=== PATIENT | male | born 1945 | race Caucasian/White ===

== ENCOUNTER 2021-12-28 09:11 | Emergency (ER) | payer MEDICARE, BC, SELFPAY ==
[2021-12-28 09:16] VITALS: BP 212/85; PULSE 93; RESP 20; TEMP 36.5; O2SAT 96; BMI 46.6
--- NOTE | 2021-12-28 09:40 | CRLHL7_ITS ---
For Patients: As a result of the Century Cures Act, medical imaging exams and procedure reports are released immediately into your electronic medical record. You may view this report before your referring provider. If you have questions, please contact your health care provider. INDICATION: Neck pain. TECHNIQUE: CT cervical spine without contrast. COMPARISON: None. FINDINGS: Vertebrae: Alignment is normal. There are no fractures or suspicious bony lesions. Discs and facet joints: Moderate to severe degenerative disc spondylosis involving all levels of the cervical spine with the exception of C4-5. Moderate diffuse facet joint spondylosis. Extraspinal findings: Prevertebral soft tissues, visualized airway, and visualized lungs are unremarkable. IMPRESSION: No acute abnormality evident. There is moderate to severe diffuse degenerative disc and facet joint spondylosis. Please note that all CT scans at this facility use dose modulation, iterative reconstruction, and/or weight-based dosing when appropriate to reduce radiation dose to as low as reasonably achievable. Dictated by Mu Bryant MD @ 12/28/2021 10:39:07 AM (Electronically Signed)
--- OUTSIDE RECORDS SUMMARY | 2021-12-28 09:55 | XMS_ITS | Encounter Summary ---
:1945 Author Organization [facility] Address [address] [place] [address] Care Team Providers Name Role Phone Yolanda Colón APRN, C.N.P. Primary Care Provider [phone] Reason for Visit Reason Comments Abdominal Pain Encounter Details Date Type Department Care Team Description 11/04/2021 Nurse Triage Department of Family Paider, Ab [facility] dominal Pain Medicine in [facility] [address] [facility] [address] [place] [phone] Social History Tobacco Use Types Packs/Day Years Used Date Smoking Tobacco: Former Smokeless Tobacco: Former Alcohol Use Standard Drinks/Week Comments Yes 0 (1 standard drink = 0.6 oz pure alcoho l) Social Alcohol Habits Answer Date Recorded How often do you have a drink containing alcohol? Monthly or less 12/04/2019 How many drinks containing alcohol do you have on a 1 or 2 12/04/2019 typical day when you are drinking? How often do you have six or more drinks on one Less than mo nthly 12/04/2019 occasion? Comment: Social 04/20/2021 Social Isolation Answer Date Recorded In a typical week, how many times do you More than three huy es a week 12/04/2019 talk on the phone with family, friends, or neighbors? How often do you get together with friends Once a week 12/04/2019 or relatives? How often do you attend zoroastrianism or 1 to 4 times per year 11/2019 oriental orthodox services? Do you belong to any clubs or No 12/04/2019 organizations such as zoroastrianism groups, unions, fraternal or athletic groups, or school groups? How often do you attend meetings of the Never 12/04/2019 clubs or organizations you belong to? Are you now , , , 12/04/2019 , never or living with a partner? Physical Activity Answer Date Recorded On average, how many days per week do you engage in moderate to 5 days 12/04/2019 strenuous exercise (like walking fast, running, jogging, dancing, swimming, biking, or other activities that cause a light or heavy sweat)? On average, how many minutes do you engage in exercise at th is 30 min 12/04/2019 level? Stress Answer Date Recorded Do you feel stress - tense, restless, nervous, or anxious, N ot at all 12/04/2019 or unable to sleep at night because your mind is troubled all the time - these days? Financial Resource Strain Answer Date Recorded How hard is it for you to pay for the very basics like Not h justo at all 12/04/2019 food, housing, medical care, and heating? Intimate Partner Violence Answer Date Recorded Within the last year, have you been afraid of your partner o r No 12/04/2019 ex-partner? Within the last year, have you been humiliated or emotionall y No 12/04/2019 abused in other ways by your partner or ex-partner? Within the last year, have you been kicked, hit, slapped, or No 12/04/2019 otherwise physically hurt by your partner or ex-partner? Within the last year, have you been raped or forced to have any No 12/04/2019 kind of sexual activity by your partner or ex-partner? Food Insecurity Answer Date Recorded Within the past 12 months, you worried that your food would Never true 12/04/2019 run out before you got money to buy more. Within the past 12 months, the food you bought just didn't N ever true 12/04/2019 last and you didn't have money to get more. Transportation Needs Answer Date Recorded In the past 12 months, has lack of transportation kept you f rom No 12/04/2019 medical appointments or from getting medications? In the past 12 months, has lack of transportation kept you f rom No 12/04/2019 meetings, work, or getting things needed for daily living? Education Answer Date Recorded What is the highest level of school you have completed or 10 th grade 12/04/2019 the highest degree you have received? 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 - 11/04/2021 8:51 AM CDT Chief Complaint / Reason for Call Patient is a 76 y.o. male calling regarding Abdominal Pain. Assessment Concern: Intermittent lower right abdominal pain, pain is a dull achy pain. Mostly when he lays downor if he bends over. Started after his daily stretching exercise. Present for: 2 days Home cares tried: Rest Calling to request: Appointment The recommended disposition is See a health care provider within 24 hours. Patient was warm transferred to [facility] at the clinic for further assistance. Reason for Disposition Age > 60 years Protocols used: Abdominal Pain - [id number] Care Advice Patient/Caregiver understands and will follow care advice?: Yes, able to teach back SEE PCP WITHIN 24 HOURS: * IF OFFICE WILL BE OPEN: You need to be examined within the next 24 hours. Call your doctor (or CHANGE HOUSE ATTENDANT/PA) when the office opens and make an appointment. REST: * Lie down. * Rest until you feel better. DRINK CLEAR FLUIDS: * Drink clear fluids only (e.g., water, flat soft drinks or half-strength Gatorade). * Sip small amounts at a time, until you feel better and the pain is gone. * Then slowly return to a regular diet. CALL BACK IF: * Severe pain lasts over 1 hour * Constant pain lasts over 2 hours * You become worse CARE ADVICE given per Abdominal Pain, Male (Adult) guideline. documented in this encounter Plan of Treatment Upcoming Encounters Date Type Specialty Care Team Description 02/11/2022 Appointment Laboratory Medicine Neli Hearn M.D. [address] [place] [phone] (Wo rk) 02/14/2022 Office Visit Family Medicine Lilli Hearn M.D. [address] [place] [phone] (Wo rk) documented as of this encounter Visit Diagnoses Not on filedocumented in this encounter Additional Health Concerns Assessment Noted Time PHQ-9 Depression Total Score: 4 04/16/2019 10:58 AM CS T documented as of this encounter Care Teams Carpet Winder Relationship Specialty Start Date End Date Yolanda Colón APRN, C.N.P. PCP - General 09/08/16 documented as of this encounter
--- OUTSIDE RECORDS SUMMARY | 2021-12-28 09:55 | XMS_ITS | Clinical Summary ---
:1945 Author Organization [facility] [place] [address] Care Team Providers Name Role Phone Nonstaff, Doctor Primary Care Provider Unavailable Pcp, No Unavailable Unavailable Allergies Active Allergy Reactions Severity Noted Date Comments Acetaminophen Intolerance-Can't Take 06/23/2006 Medications Medication Sig Dispensed Refills Start Date End Date Status aspirin 81 mg tablet Take 1 tablet 0 08/12/2009 Active by mouth once daily with a meal. multivitamin (MVI) tablet Take 1 tablet 0 08/12/2009 Active by mouth once daily. glucosamine-chondroitin, Take 1 capsule 0 08/12/2009 Active 500-400 mg, (COSAMIN DS by mouth 2 500/400) 500-400 mg Cap times daily. pravastatin (PRAVACHOL) Take 1 tablet 30 tablet 5 11/09/2009 Active 80 mg tablet by mouth at bedtime. amLODIPine (NORVASC) 10 Take 1 tablet 90 tablet 1 03/30/2010 Active mg tablet by mouth once daily. naproxen (NAPROSYN) 500 Take 1 tablet 180 tablet 1 06/14/2010 Active mg tablet by mouth 2 times daily with meals. LORazepam (ATIVAN) 1 mg Take 1 tablet 30 tablet 1 07/07/2010 Active tablet by mouth 3 times daily if needed for Anxiety. clonazePAM (KLONOPIN) 0.5 Take 1 tablet 30 tablet 1 07/21/2010 Active mg tablet by mouth 2 times daily if needed. fluticasone, 50 mcg per Inhale 2 1 Bottle 2 08/02/2010 Active actuation, nasal Sprays into (FLONASE) 50 both nostrils mcg/Actuation nasal spray once daily. triamterene-hydrochloroth Take 1 capsule 90 capsule 1 08/14/19 11 Active iazide, 37.5-25 mg, by mouth. (DYAZIDE) 37.5-25 mg daily capsuleIndications: Unspecified essential hypertension Omeprazole 20 mg tablet Take 1 tablet 90 tablet 3 08/13/2010 Active by mouth once daily. hydrochlorothiazide Take 1 tablet 0 05/14/2013 Active (HCTZ) 25 mg tablet by mouth once daily. omeprazole (PRILOSEC) 20 Take 1 capsule 0 05/14/2013 Active mg capsule by mouth once daily before a meal. losartan (COZAAR) 100 mg Take 1 tablet 0 05/14/2013 Active tablet by mouth once daily. aspirin enteric coated 81 Take 1 tablet 0 05/14/2013 Active mg tablet by mouth once daily with a meal. buPROPion (WELLBUTRIN SR; Take 1 tablet 0 05/14/2013 Active ZYBAN) 150 mg by mouth 2 Sustained-Release tablet times daily. pravastatin (PRAVACHOL) Take 1.5 0 05/14/2013 Active 40 mg tablet tablets by mouth at bedtime. terazosin (HYTRIN) 1 mg Take 1 capsule 0 05/14/2013 Active capsule by mouth at bedtime. fluticasone (50 mcg per Inhale 1 [place] 1 Bottle 0 05/14/2013 Active actuation) nasal solution into both (FLONASE) nostrils once daily. multivitamin (MVI) tablet Take 1 tablet 0 05/14/2013 Active by mouth once daily. Glucosamine-Chondroitin Take 2 tablets 0 05/14/2013 Active (OSTEO BI-FLEX) 250-200 by mouth once mg tablet daily. Active Problems Problem Noted Date Ingrowing nail 04/02/2008 Elevated fasting glucose 03/05/2008 Onychomycosis 01/30/2008 Unspecified hypothyroidism 09/03/2007 Other psoriasis 07/04/2007 Lumbago 07/04/2007 Morbid obesity 07/04/2007 Other and unspecified hyperlipidemia 09/04/2006 Encounter for long-term (current) use of other medicat ions 09/04/2006 Unspecified essential hypertension 09/04/2006 Anxiety state, unspecified 09/04/2006 Tobacco use disorder 09/04/2006 Esophageal reflux 09/04/2006 Lipoma of other skin and subcutaneous tissue 7 Personal history of poliomyelitis 09/04/2006 Resolved Problems Problem Noted Date Resolved Date Vitamin D deficiency 08/09/2008 04/25/2010 Immunizations Name Administration Dates Next Due Tdap 03/05/2008 Family History Medical History Relation Name Comments Cancer-prostate Brother Hypertension Father 1 Cancer-breast Maternal Aunt Cancer-breast Mother 1 Hypertension Mother 1 Heart Disease Paternal Uncle Diabetes Sister Relation Name Status Comments Brother Father 1 Alive Father 2 Maternal Aunt Mother 1 Alive Mother 2 Alive Paternal Uncle Sister Social History Tobacco Use Types Packs/Day Years Used Date Never Smoker Alcohol Use Standard Drinks/Week Comments No 0 (1 standard drink = 0.6 oz pure alcoho l) occasional Alcohol Habits Answer Date Recorded How often do you have a drink containing alcohol? Not asked How many drinks containing alcohol do you have on a typical Not asked day when you are drinking? How often do you have six or more drinks on one occasion? No t asked Comment: RARE 05/14/2013 Sex Assigned at Date Recorded Not on file Obstetrics History Last Filed Vital Signs Vital Sign Reading Time Taken Comments Blood Pressure 174/94 05/14/2013 10:00 AM CLINICAL ESTHETICIAN Pulse 78 05/14/2013 10:00 AM CLINICAL ESTHETICIAN Temperature 37.2 ??C (99 ??F) 07/14/2010 9:39 AM CDT Respiratory Rate 16 07/28/2010 2:59 PM CDT Oxygen Saturation 95% 05/14/2013 10:00 AM CLINICAL ESTHETICIAN Inhaled Oxygen Concentration - - Weight 153.8 kg (339 lb) 05/14/2013 10:00 AM CLINICAL ESTHETICIAN Height 173.4 cm (5' 8.25) 04/23/2010 1:28 PM CLINICAL ESTHETICIAN Body Mass Index 51.17 04/23/2010 1:28 PM CLINICAL ESTHETICIAN Plan of Treatment Health Maintenance Due Date Last Done Comments COVID-19 vaccine series (#1) 04/28/1946 Depression screening for age 12+ 1959 BMI (ht and wt on same day) for 10/26/1965 age 18+ Colonoscopy through age 75 10/26/1992 Zoster (shingles) series for age 0810/26/1997 50+ (1 of 2) Pneumococcal series for age 65+ (1 10/26/2012 - PCV) Lipids for age 45-75 04/05/2015 04/05/2010, 10/10/2009, 04/24/2009, Additional history exists Tetanus booster 03/05/2018 03/05/2008 Influenza for age 65+ 11/25/2021 Tdap Completed 03/05/2008 Hepatitis C screening for age Completed 01/05/2011 18-79 Results Not on filefrom Last 3 Months Insurance Payer Benefit Plan / Subscriber ID Effective Phone Address T ype Group Dates RISK MANAGEMENT RISK MANAGEMENT [id number] 2011-Pre 100 [place] sent [place] [id number] [place] [id number] 2016-Prese [address] [address] [place] [address], [place] [phone] [place] [id number] 2016-[place] [address] [id number] [place] [address] [phone] [id number] (Home) [place] [id number] [address] [employer] Alliance Party Self 1945 [id number] (Home) [place] [address] [address] Personal/Family Spouse 1946 [id number] ([address]) [place] [id number] [employer] [facility] [employer] Mobile 03/27/2000 [id number] [address] (Home) [place] [phone] [place] MARK (Work) [id number] Care Teams Fitter Up Relationship Specialty Start Date End Date Nonstaff, Doctor PCP - General 11/05/10 NON STAFF DOCTOR Pcp, No 05/24/13 .
--- OUTSIDE RECORDS SUMMARY | 2021-12-28 09:55 | XMS_ITS | Encounter Summary ---
:1945 Author Organization [facility] Address [address] [place] [address] Care Team Providers Name Role Phone Yolanda Colón APRN, C.N.P. Primary Care Provider [phone] Reason for Visit Reason Comments Edema L/E's swelling. Fatigued, SO B. Lower Lt leg ulcer x 2 weeks Appointment Request (Routine) - Closed Specialty Diagnoses / Procedures Referred By Contact Refer red To Contact Family Medicine Referral ID Status Reason Start Date Expiration Date Visits Requ ested Visits Authorized [id number] Closed 11/22/2021 11/22/2022 1 1 Encounter Details Date Type Department Care Team Description 12/01/2021 Office Visit Department of Family Lilli Jarrell S tasis Ulcer With Medicine in M.D. Varicose Vein Left [facility] [address] [facility] ([facility]) (Primary Dx) [address] [place] [phone] Social History Tobacco Use Types Packs/Day Years [...] or relatives? How often do you attend rastafarian or 1 to 4 times per year 11/2019 latter day services? 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 - 12/01/2021 11:30 AM CDT SUBJECTIVE CHIEF COMPLAINT / REASON FOR VISIT Cristi Macdonald is a 76 y.o. male who presents for evaluation of Edema (L/E's swelling. Fatigued, SOB.) and Lower Lt leg ulcer x 2 weeks. HISTORY OF PRESENT ILLNESS Patient is here today for a draining wound on his left lower leg. He states that it has been gettingbetter but he is frustrated because it is not closing. He has been using topical ointment with some relief but continues to have drainage. He has had these in the past several times. The last when he had took several months to resolve. He has not had any fevers or chills. The drainage is been watery to bloody no purulence or warmth of the area. No history of trauma. The wound does not burn or cause him any discomfort. He is frustrated because these continue to occur. Does take the Lasix in the morning at 8:00 a.m. and at night at 8:00 p.m.. He does not get if he has the bathroom over the course of the evening so he does not think the Lasix is working very well. He tries to keep his feet elevated but he has neuropathy which makes this more difficult. He is very active during the day and so he doesspend a lot of time on his feet. The following portions of the patient's history were reviewed and updated as appropriate: allergies,current medications, medical history, social history, and problem list. 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 Morbid Obesity Body Mass Index 45.0-49.9 Adult (HCC) Anxiety Current Outpatient Medications: amLODIPine (NORVASC) 5 mg tablet, Take 1 tablet (5 mg total) by mouth daily., Disp: 90 tablet, Rfl:[address] tablet, Take 81 mg by mouth., Disp: , Rfl: buPROPion XL (WELLBUTRIN XL) 300 mg 24 hr tablet, Take 1 tablet (300 mg total) by mouth every morning., Disp: 90 tablet, Rfl: 3 furosemide (LASIX) 20 mg tablet, TAKE 1 TABLET BY MOUTH 2 TIMES A DAY., Disp: 180 tablet, Rfl: 2 GLUCOSAMINE/CHONDR NOONAN A SOD (OSTEO BI-FLEX ORAL), Take 1 tablet by mouth 2 (two) times a day., Disp: , Rfl: losartan (COZAAR) 100 mg tablet, TAKE 1 TABLET BY MOUTH DAILY., Disp: 90 tablet, Rfl: 3 meclizine (ANTIVERT) 25 mg tablet, Take 1 tablet (25 mg total) by mouth 3 (three) times a day as needed for dizziness., Disp: 90 tablet, Rfl: 3 metFORMIN XR (GLUCOPHAGE-XR) 500 mg 24 hr tablet, Take 1 tablet (500 mg total) by mouth daily with breakfast., Disp: 90 tablet, Rfl: 3 MULTIVITAMIN WITH MINERALS ORAL, Take 1 tablet by mouth daily., Disp: , Rfl: naproxen (NAPROSYN) 500 mg tablet, STATES HE ONLY TAKES IT IF HIS BACK HURTS. STATES HE TAKES THIS ABOUT 3-4 TIMES PER WEEK, Disp: 90 tablet, Rfl: 1 omega-3 fatty acids 500 mg capsule, Take 2 tablets by mouth daily. Capsules 1200 mg, take 2 caps daily , Disp: , Rfl: omeprazole (PriLOSEC) [address] capsule, TAKE ONE (1) CAPSULE BY MOUTH DAILY (Patient taking differently: as needed.), Disp: 90 capsule, Rfl: 3 pravastatin (PRAVACHOL) 80 mg tablet, TAKE 1 TABLET (80 MG TOTAL) BY MOUTH AT BEDTIME., Disp: 90 tablet, Rfl: 3 terazosin (HYTRIN) 1 mg capsule, TAKE 1 CAPSULE BY MOUTH DAILY., Disp: 90 capsule, Rfl: 3 True Metrix Glucose Test Strip strips, 2 (two) times a day. for testing, Disp: , Rfl: TRUEplus Lancets 33 gauge misc, TESTING 2 TIMES A DAY, Disp: , Rfl: OBJECTIVE BP 135/79 (Cuff Size: Large) Pulse 68 Temp 36.9 ??C (Temporal) Ht 176 cm Wt (!) 152 kg SpO2 97% BMI 49.20 kg/m?? PHYSICAL EXAM General: Patient is in no apparent distress and is alert and oriented. Mood and affect are bright and engaging. Patient is very pleasant and is articulate and obviously educated. He is a very good historian. His lower extremities are examined. He has 2+ pitting edema on the left with the wound over the anterior lower dave as noted in the images. There is some surrounding erythema but there is no warmth. The right lower extremity has 1+ pitting edema with evidence of stasis dermatitis. ASSESSMENT / PLAN #1 Stasis Ulcer With Varicose Vein Left (HCC) I think at this time he really needs the benefit of compression. Because of the wound compression will be difficult with a stocking. He is wearing a stocking on the right. Replacement wound boot on himtoday and will recheck him on Monday. I did do lab work today to ensure there is no infection that will require an antibiotic. He should try to keep the leg elevated as much as possible. Will calm witha bee also the lab work as soon as I get that back and will adjust the plan accordingly. He has had these in the past without active infections. Will do a 2 day follow-up instead of a typical 3 day thesee how things are progressing for the weekend. He is agreeable to the plan as noted above. - CBC with Differential, Blood documented in this encounter Miscellaneous Notes Result Encounter Note - Lilli Jarrell M.D. - 12/01/2021 4:25 PM CDT Please call the patient regarding his abnormal result. His WBC is up a bit so he may have a slight infection so I sent a script to his pharmacy for an abx. FU on Monday. Keep the leg wrapped unless it hurts for some reason. Addendum Note - Lilli Jarrell M.D. - 12/01/2021 11:30 AM CDT Addended by: LILLI JARRELL on: 12/01/2021 04:25 PM Modules accepted: Orders documented in this encounter Plan of Treatment Upcoming Encounters Date Type Specialty Care Team Description 02/11/2022 Appointment Laboratory Medicine Neli Jarrell M.D. [address] [place] [phone] (Stephon caldera) 02/14/2022 Office Visit Family Medicine Lilli Jarrell M.D. [address] [place] [phone] (Stephon caldera) documented as of this encounter Procedures Procedure Name Priority Date/Time Associated Diagnosis Comme nts CBC WITH Routine 12/01/2021 11:52 AM Stasis Ulcer With Res ults for this DIFFERENTIAL, B CDT Varicose Vein Left proced ure are in (HCC) the results section. documented in this encounter Results (ABNORMAL) CBC with Differential, Blood (12/01/2021 11:52 AM CDT) [facility] Method Time Signature Hemoglobin 12.9 (L) 13.2 - 12/01/2021 NPRG 16.6 g/dL 4:22 PM CDT Hematocrit 40.0 38.3 - 12/01/2021 NPRG 48.6 % 4:22 PM CDT Erythrocytes 4.39 4.35 - 12/01/2021 NPRG 5.65 4:22 PM CDT x10(12)/L MCV 91.1 78.2 - 12/01/2021 NPRG 97.9 fL 4:22 PM CDT RBC Distrib Width 13.1 11.8 - 12/01/2021 NPRG 14.5 % 4:22 PM CDT Platelet Count 299 135 - 317 12/01/2021 NPRG x10(9)/L 4:22 PM CDT Leukocytes 10.8 (H) 3.4 - 9.6 12/01/2021 NPRG x10(9)/L 4:22 PM CDT Neutrophils 5.39 1.56 - 12/01/2021 NPRG 6.45 4:22 PM CDT x10(9)/L Lymphocytes 4.35 (H) 0.95 - 12/01/2021 NPRG 3.07 4:22 PM CDT x10(9)/L Monocytes 0.92 (H) 0.26 - 12/01/2021 NPRG 0.81 4:22 PM CDT x10(9)/L Eosinophils 0.14 0.03 - 12/01/2021 NPRG 0.48 4:22 PM CDT x10(9)/L Basophils 0.03 0.01 - 12/01/2021 NPRG 0.08 4:22 PM CDT x10(9)/L Specimen Anatomical Collection Method Collection Time Receive d Time (Source) Location / / Volume Laterality Blood (Blood, 12/01/2021 11:52 12/01/2021 3:32 Venous) AM CDT PM CDT Lilli Jarrell M.D. LAB BLOOD ADD-ON Performing Organization Address City/State/ZIP Code Phon e Number [facility] [address] [place] [address] [address] [facility] [place] [address] [place] [address] [address] [facility] documented in this encounter Visit Diagnoses Diagnosis Stasis Ulcer With Varicose Vein Left ([facility]) - Primary documented in this encounter Additional Health Concerns Assessment Noted Time PHQ-9 Depression Total Score: 4 04/16/2019 10:58 AM CS T documented as of this encounter Care Teams Nephrology Nurse Relationship Specialty Start Date End Date Yolanda Colón APRN, C.N.P. PCP - General 09/08/16 documented as of this encounter
--- OUTSIDE RECORDS SUMMARY | 2021-12-28 09:55 | XMS_ITS | Encounter Summary ---
:1945 Author Organization [facility] Address [address] [place] [address] Care Team Providers Name Role Phone Yolanda Colón APRN, C.N.P. Primary Care Provider [phone] Reason for Visit Reason Comments Follow-up Encounter Details Date Type Department Care Team Description 12/03/2021 Office Visit Department of Family Lilli Hearn V enous Insufficiency Chronic Peripheral (Primary Dx); Medicine in M.D. Stasis Ulcer With Varicose Vein Left (HC C); [place], [facility] [address] Cellulitis [place], [place] [address] [place] [address] [place], [place] [phone] (Wo rk) [address] [phone] Social History Tobacco Use Types Packs/Day Years Used Date Smoking Tobacco: Former Smokeless Tobacco: Former Tobacco Cessation: Counseling Given: Yes Alcohol Use Standard Drinks/Week Comments Yes 0 [...] or relatives? How often do you attend holiness or 1 to 4 times per year 11/2019 nondenominational services? 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 - 12/03/2021 9:30 AM CDT SUBJECTIVE CHIEF COMPLAINT / REASON FOR VISIT Cristi Macdonald is a 76 y.o. male who presents for evaluation of Follow-up. HISTORY OF PRESENT ILLNESS Patient is here today for close follow-up after his venous stasis ulcer was addressed with the Unna boot on Monday. He has been tolerating the Unna boot without difficulty. Actually feels improved today. He has less burning and aching at the site. He has been tolerating the wound boot but has not been able to shower. He has been trying to keep the leg up as much as possible. He has had no fevers or chills. He did not leak through the boot or the wrap. The following portions of the patient's history [...] Morbid Obesity Body Mass Index 45.0-49.9 Adult ([facility]) Anxiety Current Outpatient Medications: amLODIPine (NORVASC) 5 mg tablet, Take 1 tablet (5 mg total) by mouth daily., Disp: 90 tablet, Rfl:[address] tablet, Take 81 mg by mouth., Disp: , Rfl: buPROPion XL (WELLBUTRIN XL) 300 mg 24 hr tablet, Take 1 tablet (300 mg total) by mouth every morning., Disp: 90 tablet, Rfl: 3 cephalexin (KEFLEX) 500 mg capsule, Take 1 capsule (500 mg total) by mouth 3 (three) times a day for 7 days., Disp: 21 capsule, Rfl: 0 furosemide (LASIX) 20 mg tablet, TAKE 1 [...] A DAY, Disp: , Rfl: OBJECTIVE BP 137/76 (BP Location: Left arm, Patient Position: Sitting, Cuff Size: Large) Pulse 67 Temp 36.4 ??C (Temporal) Wt (!) 153 kg SpO2 96% BMI 49.50 kg/m?? PHYSICAL EXAM Patient is evaluated today. He is in good spirits. Vitals are reviewed. Mood and affect are bright and engaging. Lower extremity is examined. He has decreased edema on the left lower extremity to 1+. His right lower extremity is also improved to trace edema at this time. The erythema on the left lower extremity is also improved. The wound itself looks about the same in diameter. Images are taken. There is no longer any drainage from the wound today. There is no odor. He has poor peripheral pulses in the dorsalis pedis bilaterally. He has no range of motion of the ankle and knee on that side. ASSESSMENT / PLAN #1 Venous Insufficiency Chronic Peripheral He will continue to elevate the leg and we wear compression stocking #2 Stasis Ulcer With Varicose Vein Left (HCC) Another Unna boot is placed today and will see him back on Monday to ensure that he is improving #3 Cellulitis His antibiotics will be completed as he has improvement of the evidence of cellulitis at this time. Close follow-up to be completed as noted above. documented in this encounter Plan of Treatment Upcoming Encounters Date Type Specialty Care Team Description 02/11/2022 Appointment Laboratory Medicine Neli Hearn M.D. [address] [place] [facility] [place] [address] (Stephon caldera) 02/14/2022 Office Visit Family Medicine Lilli Hearn M.D. [address] [place] [facility] [place] [address] (Stephon caldera) documented as of this encounter Visit Diagnoses Diagnosis Venous Insufficiency Chronic Peripheral - Primary Stasis Ulcer With Varicose Vein Left (HC C) Cellulitis documented in this encounter Additional Health Concerns Assessment Noted Time PHQ-9 Depression Total Score: 4 04/16/2019 10:58 AM CS T documented as of this encounter Care Teams National Van Owner Operator Relationship Specialty Start Date End Date Yolanda Colón APRN, C.N.P. PCP - General 09/08/16 documented as of this encounter
--- OUTSIDE RECORDS SUMMARY | 2021-12-28 09:55 | XMS_ITS | Encounter Summary ---
:1945 Author Organization [facility] Address [address] [place] [address] Care Team Providers Name Role Phone Yolanda Colón APRN, C.N.P. Primary Care Provider [phone] Reason for Visit Reason Comments Follow-up Encounter Details Date Type Department Care Team Description 12/06/2021 Office Visit Department of Family Lilli Hearn V enous Insufficiency Chronic Peripheral (Primary Dx); Medicine in M.D. Stasis Ulcer With Varicose Vein Left (HC C); [place], [facility] [address] Cellulitis [place], [place] [address] [address] [place], [place] [phone] (Wo rk) [address] [phone] Social History Tobacco Use Types Packs/Day Years [...] or relatives? How often do you attend religion or 1 to 4 times per year 11/2019 restoration services? 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 - 12/06/2021 11:30 AM CDT SUBJECTIVE CHIEF COMPLAINT / REASON FOR VISIT Cristi Macdonald is a 76 y.o. male who presents for evaluation of Follow-up. HISTORY OF PRESENT ILLNESS Patient is here today for follow-up. He has been tolerating the Unna boot without difficulties. His pain is improved. He has lost burning and stinging. He is trying to keep the foot is elevated as muchas possible and he is having pretty good luck doing that. He is noticing less edema on the other side as well. He is not complaining of any itching or discomfort. The following portions of the patient's history [...] A DAY, Disp: , Rfl: OBJECTIVE BP 129/77 (BP Location: Left arm, Patient Position: Sitting, Cuff Size: Large) Pulse 70 Resp 18 Ht 176 cm Wt (!) 153 kg SpO2 93% BMI 49.35 kg/m?? PHYSICAL EXAM Patient is re seen. His leg is unwrapped and he has continued improvement of both the cellulitis andedema. The wound itself is also decreased in both diameter and depth. He has good granulation tissuenoted on the wound itself. It is no longer draining and has no discharge. Edema is 1+ to trace. There is no warmth to the skin. ASSESSMENT / PLAN #1 Venous Insufficiency Chronic Peripheral Continue with support stockings and wraps and he will keep his feet elevated as much as possible #2 Stasis Ulcer With Varicose Vein Left (HCC) Wound boot is replaced and will be changed on . He will keep the foot up and elevated as much as possible. #3 Cellulitis He will finish his antibiotics as previously prescribed. He will let me know if he has any questions or concerns in the interim otherwise I will see him on afternoon. documented in this encounter Plan of Treatment Upcoming Encounters Date Type Specialty Care Team Description 02/11/2022 Appointment Laboratory Medicine Neli Hearn M.D. [address] [place] [phone] (Stephon caldera) 02/14/2022 Office Visit Family Medicine Lilli Hearn M.D. [address] [place] [phone] (Stephon caldera) documented as of this encounter Visit Diagnoses Diagnosis Venous Insufficiency Chronic Peripheral - Primary Stasis Ulcer With Varicose Vein Left (HC C) Cellulitis documented in this encounter Additional Health Concerns Assessment Noted Time PHQ-9 Depression Total Score: 4 04/16/2019 10:58 AM CS T documented as of this encounter Care Teams Accounts Clerk Relationship Specialty Start Date End Date Yolanda Colón APRN, C.N.P. PCP - General 09/08/16 documented as of this encounter
--- OUTSIDE RECORDS SUMMARY | 2021-12-28 09:55 | XMS_ITS | Clinical Summary ---
:1945 Author Organization [facility] Address [address] [place] [address] Care Team Providers Name Role Phone Yolanda Colón APRN, C.N.P. Primary Care Provider [phone] Source Comments Patient records contain information from all sites at [facility]. For routine questions regarding patient records, call [phone] during business hours, M-F 8:00 AM - 5:00 PM Central Time. Record requests for emergency care only can be directed to [phone] at any time.[facility] Allergies Active Allergy Reactions Severity Noted Date Comments Acetaminophen Other (see comments) 07/15/2010 States that he believes that h e overdosed on tylenol. Advise d not to take it any longer by his M D at the time. Sulfa (Sulfonamide Anxiety 07/01/2015 Antibiotics) Medications Medication Sig Dispensed Refills Start Date End Date Status GLUCOSAMINE/CHONDR NOONAN Take 1 tablet by 0 06/13/2013 Active A SOD (OSTEO BI-FLEX mouth 2 (two) ORAL) times a day. MULTIVITAMIN WITH Take 1 tablet by 0 03/11/2015 Active MINERALS ORAL mouth daily. omega-3 fatty acids Take 2 tablets by 0 07/16/2014 Active 500 mg capsule mouth daily. Capsules 1200 mg, take 2 caps daily aspirin [address] Take 81 mg by 0 08/12/2009 Active tablet mouth. omeprazole (PriLOSEC) TAKE ONE (1) 90 capsule 3 01/07/[address] capsule CAPSULE BY MOUTH DAILY Additional Information Patient taking differently: As needed, Other, Reported on 12/01/2021 pravastatin (PRAVACHOL) TAKE 1 TABLET (80 90 tablet 3 12/23/19 21 Active 80 mg tablet MG TOTAL) BY MOUTH AT BEDTIME. metFORMIN XR Take 1 tablet (500 90 tablet 3 05/14/2021 023 Active (GLUCOPHAGE-XR) 500 mg mg total) by mouth 24 hr tablet daily with breakfast. TRUEplus Lancets 33 TESTING 2 TIMES A 0 05/07/2021 Active gauge misc DAY True Metrix Glucose 2 (two) times a 0 05/07/2021 Active Test Strip strips day. for testing losartan (COZAAR) 100 TAKE 1 TABLET BY 90 tablet 3 05/28/2021 Active mg tablet MOUTH DAILY. terazosin (HYTRIN) 1 mg TAKE 1 CAPSULE BY 90 capsule 3 022 Active capsule MOUTH DAILY. amLODIPine (NORVASC) 5 Take 1 tablet (5 mg 90 tablet 3 022 08/11/2022 Active mg tablet total) by mouth daily. buPROPion XL Take 1 tablet (300 90 tablet 3 08/11/2021 023 Active (WELLBUTRIN XL) 300 mg mg total) by mouth 24 hr tablet every morning. naproxen (NAPROSYN) 500 STATES HE ONLY 90 tablet 1 09/15/2021 Active mg tablet TAKES IT IF HIS BACK HURTS. STATES HE TAKES THIS ABOUT 3-4 TIMES PER WEEK meclizine (ANTIVERT) 25 Take 1 tablet (25 90 tablet 3 09/16/19 22 09/15/2022 Active mg tablet mg total) by mouth 3 (three) times a day as needed for dizziness. furosemide (LASIX) 20 TAKE 1 TABLET BY 180 tablet 2 10/12/2021 Active mg tablet MOUTH 2 TIMES A DAY. cephalexin (KEFLEX) 500 Take 1 capsule (500 21 capsule 0 12/0112/08/2021 mg capsule mg total) by mouth 3 (three) times a day for 7 days. 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 2021 Venous Insufficiency Chronic Peripheral 04/21/2021 Benign Prostatic Hyperplasia Without Obstruction 04/16 Obstructive Sleep Apnea Adult 07/21/2016 Morbid Obesity Body Mass Index >= 35 with Comorbid Con dition 04/16/2015 Overview: Morbid Obesity Body Mass Index (BMI) >40 Adult Psoriasis 03/18/2015 Hypercholesterolemia 06/07/2012 Hypothyroidism 09/03/2007 Gastroesophageal Reflux Disease NOS 09/04/2006 Resolved Problems Problem Noted Date Resolved Date Hypertension 06/07/2012 05/07/2021 Overview: Hypertension Essential (401.9) Encounters Date Type Specialty Care Team Description 12/13/2021 Nurse Only Family Medicine Aleja Damon, L.P.N. 12/09/2021 Office Visit Family Medicine Lilli Hearn, Venous Insufficiency M.D. Chronic Periphe ral (Primary Dx) 12/06/2021 Office Visit [facility] Lilli Hearn, Venous Insufficiency Chronic Peripheral (Primary Dx); M.D. Stasis Ulcer Wi th Varicose Vein Left (HCC); Cellulitis 12/03/2021 Office Visit [facility] Lilli Hearn, Venous Insufficiency Chronic Peripheral (Primary Dx); M.D. Stasis Ulcer Wi th Varicose Vein Left (HCC); Cellulitis 12/01/2021 Ancillary Procedure 12/01/2021 Office Visit [facility] Lilli Hearn, Stasis Ulcer With M.D. Varicose Vein L eft (HCC) (Primary Dx) 11/04/2021 Nurse Triage Family Medicine Izzy Sanchez Abdomin al Pain R.N. 10/11/2021 Refill [facility] Yolanda Colón Refi ll M, WEB SITE ADMINISTRATOR, C.N.P. from Last 3 Months Immunizations Name Administration Dates Next Due Influenza, Unspecified 09/15/2021 (Deferred: Other) PPSV23 09/15/2021 (Deferred: Other), 09/15/2021 (Deferred: Patient decision) RZV (SHINGRIX) 09/15/2021 (Deferred: Patient decision) SARS-COV-2 (COVID-19) - MODERNA 07/08/2020, 06/10/2020 SARS-COV-2 (COVID-19) - PFIZER (12 01/28/2021 years or older) Td (Adult), adsorbed 09/15/2021 (Deferred: Other) Td, (Adult) Unspecified 09/15/2021 (Deferred: Patient decisi on) Tdap 03/05/2008 Zoster, Unspecified 09/15/2021 (Deferred: Other) influenza high dose (65 years or 09/15/2021 (Deferred: Patie nt decision) older) (PF) Family History Medical History Relation Name Comments Prostate cancer Brother Coronary artery disease Father Breast cancer Mother Dementia Mother Relation Name Status Comments Brother Daughter Alive Father Mother Social History Tobacco Use Types Packs/Day Years [...] or relatives? How often do you attend methodist or 1 to 4 times per year 11/2019 pentecostalism services? 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 [address] [place] [phone] (Wo rk) 02/14/2022 Office Visit Family Medicine Lilli Hearn M.D. [address] [place] [phone] (Wo rk) Health Maintenance Due Date Last Done Comments CT Colonography 1945 Cologuard 1945 FIT 1945 COVID-19 Vaccine (4 - 03/25/2021 01/28/2021, 07/08/2020, Booster for Moderna series) 06/10/2020 Influenza Vaccine (#1) 2021 Zoster Vaccines (1 of 2) 02/02/2022 Postpon ed from 10/26/1997 (Terri ent Refused) Office Visit for Blood 03/10/2022 12/09/2021 Pressure Check / Re-check Hepatitis C Screening 04/20/2022 Postponed from 1945 (Terri ent Refused) Creatinine Level 08/09/2022 08/09/2021, 05/05/2021, 12/01/2020, Additional history exists Fasting Glucose for 08/09/2022 08/09/2021, 08/09/2021, Diabetes Screening 05/05/2021, Additional history exists Potassium Level 08/09/2022 08/09/2021, 05/05/2021, 12/01/2020, Additional history exists Sodium Level 08/09/2022 08/09/2021, 05/05/2021, 12/01/2020, Additional history exists Visit: Chronic Disease, age [age]/11/2022 08/11/2021, 08/12/19 22 18+ DTaP,Tdap,and Td Vaccines 12/03/2022 03/05/2008 Postpo vik from (2 - Td or Tdap) 03/05/2018 (Pat ient Refused) Pneumococcal vaccine (65+ 12/03/2022 Postpo vik from years) (1 - PCV) 10/26/2012 (Pat ient Refused) Colonoscopy 07/16/2023 07/15/2013 Colorectal Cancer Screening 07/16/2023 Lipid (Cholesterol) 04/16/2024 04/16/2019, 05/16/2016, Screening 06/12/2015, Additional history exists Abdominal Aortic Aneurysm Completed 03/12/2015 (AAA) Screen Depression Screening Completed 04/20/2021 (Annual PHQ-2) Fall Risk Screen (Annual) Completed 04/20/2021 Procedures Procedure Name Priority Date/Time Associated Diagnosis Comme nts CBC WITH Routine 12/01/2021 11:52 AM Stasis Ulcer With Res ults for this DIFFERENTIAL, B CDT Varicose Vein Left proced ure are in (HCC) the results section. FAMILY MEDICINE Routine 12/01/2021 11:30 AM Resul ts for this IMAGE EXAM CDT procedure are i n the results section. from Last 3 Months Results (ABNORMAL) CBC with Differential, Blood (12/01/2021 11:52 AM CDT) [facility] gist Method Time Signature Hemoglobin 12.9 (L) 13.2 [...] 3:32 Venous) AM CDT PM CDT Lilli Hearn M.D. LAB BLOOD ADD-ON Performing Organization Address City/State/ZIP Code Phon e Number [facility]- [address] [place] [address] LAB NPRG [place] [address] Leg-Family Medicine Image Exam (12/01/2021 11:30 AM CDT) Specimen (Source) Anatomical Collection Method Collection Time Re ceived Time Location / / Volume Laterality 12/01/2021 11:28 AM CDT Narrative [facility] - 12/01/2021 11:30 AM CDT This order has been created and auto-finalized to support the import of images acquired without order. The clini jose documentation to support these images can be found on the encounter bettie t produced images. Provider Not In System IMG NON RAD IMAGING PROCEDUR ES Performing Organization Address City/State/ZIP Code Phon e Number IINE IINE NA from Last 3 Months Insurance Payer Benefit Plan Subscriber ID Effective Phone Address Typ e / Group Dates MEDICARE MEDICARE A [id number] 2012-Pres [address] [place] [address] [employer] BCBS [place] [id number] 2016-Pres [phone] PO KYLEE X Cost Share BLUE SHIELD BLUE COST ent [phone] [place] [address] [phone] [id number] [facility] [place] [id number] Care Teams Enrollment Processor Relationship Specialty Start Date End Date Yolanda Colón APRN, C.N.P. PCP - General 09/08/16
--- OUTSIDE RECORDS SUMMARY | 2021-12-28 09:55 | XMS_ITS | Encounter Summary ---
:1945 Author Organization [facility] Address [address] [place] [address] Care Team Providers Name Role Phone Yolanda Colón APRN, C.N.P. Primary Care Provider [phone] Encounter Details Date Type Department Care Team Description 12/09/2021 Office Visit Department of Family Lilli Hearn V enous Insufficiency Medicine in M.D. Chronic Peripheral [place], [address] (Primary Dx) [place], [place] [address] [address] [place], [place] [phone] (Wo rk) [address] [phone] Social History Tobacco Use Types Packs/Day Years [...] or relatives? How often do you attend oriental orthodox or 1 to 4 times per year 11/2019 uatsdin services? 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 - 12/09/2021 3:30 PM CDT SUBJECTIVE CHIEF COMPLAINT / REASON FOR VISIT Cristi Macdonald is a 76 y.o. male who presents for evaluation of No chief complaint on file.. HISTORY OF PRESENT ILLNESS Patient is here today for follow-up. We have been placing Unna boots on him to help control and heelchronic wound on his left anterior dave. They have been working very well for him he has been tolerating them very well. He has absolutely no pain. He did not remove the dressing earlier today to shower before he came in so we did do that while he was here and there was very little discharge on the dressing itself. He has had no drainage since that time. No fevers or chills. The burning and stinging have since resolved. The following portions of the patient's history [...] Morbid Obesity Body Mass Index 45.0-49.9 Adult ([facility]) Anxiety Current Outpatient Medications: amLODIPine (NORVASC) 5 [...] Disp: , Rfl: TRUEplus Lancets 33 gauge [facility] [place] [place], TESTING 2 TIMES A DAY, Disp: , Rfl: OBJECTIVE BP 149/80 Pulse 91 Temp 37.6 ??C Ht 176 cm Wt (!) 155 kg SpO2 95% BMI 49.93 kg/m?? PHYSICAL EXAM Significant improvement on the anterior left dave wound. It is significantly decreased in both diameter and depth. Is nearly closed at this time. There is no surrounding erythema or infection at this time. ASSESSMENT / PLAN #1 Venous Insufficiency Chronic Peripheral His cellulitis has resolved. The wound is healing nicely. Will place another wound boot today and have him remove it himself on Monday. I suspect the wound will be closed over all almost in its entirety by that time. If there is still some residual wound left he can come back in Monday and have her reassessed for another boot placement. He is instructed to keep that leg elevated as much as possible to help with continued healing and decrease the likelihood of recurrence. documented in this encounter Plan of Treatment Upcoming Encounters Date Type Specialty Care Team Description 02/11/2022 Appointment Laboratory Medicine Neli Hearn M.D. [address] [place] [phone] (Stephon caldera) 02/14/2022 Office Visit Family Medicine Lilli Hearn M.D. [address] [place] [address] (Stephon caldera) documented as of this encounter Visit Diagnoses Diagnosis Venous Insufficiency Chronic Peripheral - Primary documented in this encounter Additional Health Concerns Assessment Noted Time PHQ-9 Depression Total Score: 4 04/16/2019 10:58 AM CS T documented as of this encounter Care Teams Business Planning Manager Relationship Specialty Start Date End Date Yolanda Colón APRN, C.N.P. PCP - General 09/08/16 documented as of this encounter
--- OUTSIDE RECORDS SUMMARY | 2021-12-28 09:55 | XMS_ITS | Encounter Summary ---
:1945 Author Organization [facility] Address [address] [place] [address] Care Team Providers Name Role Phone Yolanda Colón APRN, C.N.P. Primary Care Provider [phone] Encounter Details Date Type Department Care Team Description 12/01/2021 Ancillary Procedure Department of Family Medicine Social History Tobacco Use Types Packs/Day Years [...] or relatives? How often do you attend voodoo or 1 to 4 times per year 11/2019 zoroastrianism services? 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 [address] [place] [facility] [address] (Wo rk) 02/14/2022 Office Visit Family Medicine Lilli Hearn M.D. [address] [place] [facility] [address] (Wo rk) documented as of this encounter Procedures Procedure Name Priority Date/Time Associated Diagnosis Comme nts FAMILY MEDICINE Routine 12/01/2021 11:30 AM Resul ts for this IMAGE EXAM CDT procedure are i n the results section. documented in this encounter Results Leg-Family Medicine Image Exam (12/01/2021 11:30 AM [...] Organization Address City/State/ZIP Code Phon e Number IIMS IIMS NA documented in this encounter Visit Diagnoses Not on filedocumented in this encounter Additional Health Concerns Assessment Noted Time PHQ-9 Depression Total Score: 4 04/16/2019 10:58 AM CS T documented as of this encounter Care Teams Carton Waxing Machine Operator Relationship Specialty Start Date End Date Yolanda Colón APRN, C.N.P. PCP - General 09/08/16 documented as of this encounter
--- OUTSIDE RECORDS SUMMARY | 2021-12-28 09:55 | XMS_ITS | Encounter Summary ---
:1945 Author Organization [facility] Address [address] [place] [address] Care Team Providers Name Role Phone Yolanda Colón APRN, C.N.P. Primary Care Provider [phone] Encounter Details Date Type Department Care Team Description 12/13/2021 Nurse Only Department of Family Medicine Aleja Damon, in [facility] thony L.P.N. [address] [place] [address] [place], [place] [phone] Social History Tobacco Use Types Packs/Day Years [...] or relatives? How often do you attend caodaism or 1 to 4 times per year 11/2019 worship services? 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 - 12/13/2021 10:30 AM CDT Pt here to evaluate the wound on his Lower Lt leg. Annalee boot was taken off and he showered and washedarea with soap and water. Pt had protective dressing over the wound and was free of any drainage. Area pink with good tissue present pt instructed to leave protective dressing on and continue to elevate legs above heart at least twice a day. Change dressing daily and clean area with soap and water andmonitor area for any open area's. Pt agreed with the plan of care. Will follow-up as needed. documented in this encounter Plan of Treatment Upcoming Encounters Date Type Specialty Care Team Description 02/11/2022 Appointment Laboratory Medicine Neli Hearn M.D. [address] [place] [phone] (Stephon caldera) 02/14/2022 Office Visit Family Medicine Lilli Hearn M.D. [address] [place] [phone] (Stephon caldera) documented as of this encounter Visit Diagnoses Not on filedocumented in this encounter Additional Health Concerns Assessment Noted Time PHQ-9 Depression Total Score: 4 04/16/2019 10:58 AM CS T documented as of this encounter Care Teams Pizza Baker Relationship Specialty Start Date End Date Yolanda Colón, AMBER, C.N.P. PCP - General 09/08/16 documented as of this encounter
--- OUTSIDE RECORDS SUMMARY | 2021-12-28 09:56 | XMS_ITS | Encounter Summary ---
:1945 Author Organization [facility] [place] [facility] Address [address] [place] [address] Care Team Providers Name Role Phone Yolanda Colón APRN, C.N.P. Primary Care Provider [phone] Reason for Visit Reason Comments Med Refill Encounter Details Date Type Department Care Team Description 06/07/2021 Refill Department of Family Medicine Yolanda Colón APRN, Med Refill in [facility] lela C.N.P. [address] [place], [place] [phone] [place] [phone] (Wo rk) Social History Tobacco Use Types Packs/Day Years [...] or relatives? How often do you attend restoration or 1 to 4 times per year 11/2019 jehovah's witness services? 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 - 06/07/2021 9:11 AM CDT Requested Prescriptions Pending Prescriptions Disp Refills ??? amLODIPine (NORVASC) 5 mg tablet [Pharmacy Med Name: AMLODIPINE 5MG] 90 tablet 2 Sig: TAKE 1 TABLET BY MOUTH DAILY. Last Refilled: 06/02/2020 Last Appointment: 05/14/2021 Future Appointment: 08/11/21 documented in this encounter Plan of Treatment Upcoming Encounters Date Type Specialty Care Team Description 02/11/2022 Appointment Laboratory Medicine Neli Hearn M.D. [address] [place] [phone] (Wo rk) 02/14/2022 Office Visit Family Medicine Lilli Hearn M.D. [address] [place] [phone] (Wo rk) documented as of this encounter Visit Diagnoses Not on filedocumented in this encounter Additional Health Concerns Assessment Noted Time PHQ-9 Depression Total Score: 4 04/16/2019 10:58 AM CS T documented as of this encounter Care Teams Jewelry Bench Worker Relationship Specialty Start Date End Date Yolanda Colón APRN, C.N.P. PCP - General 09/08/16 documented as of this encounter
--- OUTSIDE RECORDS SUMMARY | 2021-12-28 09:56 | XMS_ITS | Encounter Summary ---
:1945 Author Organization [facility] Address [address] [place] [address] Care Team Providers Name Role Phone Yolanda Colón APRN, C.N.P. Primary Care Provider [phone] Reason for Visit Reason Comments Med Refill Encounter Details Date Type Department Care Team Description 10/11/2021 Refill Department of Family Medicine Yolanda Colón APRN, Med Refill in [facility] lela C.N.P. [address] [place], [place] [phone] [place] [phone] (Wo rk) Social History Tobacco Use Types [...] or relatives? How often do you attend jewish or 1 to 4 times per year 11/2019 voodoo services? 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 [facility] 08/25/21 Office Visit Lilli Hearn M.D. [facility] 08/11/21 Office Visit Lilli Hearn M.D. [facility] 05/14/21 Office Visit Lilli Hearn M.D. [facility] 05/07/21 Office Visit Lilli Hearn M.D. [facility] 05/05/21 Office Visit Lilli Hearn M.D. [facility] 04/20/21 Office Visit Yolanda Colón APRN, C.N.P. [facility] 12/01/20 Office Visit Yolanda Colón APRN, C.N.P. [facility] Showing recent visits within past 365 days with a meds authorizing provider and meeting all other requirements Future Appointments No visits were found meeting these conditions. Showing future appointments within next 90 days with a meds authorizing provider and meeting all other requirements documented in this encounter Plan of Treatment Upcoming Encounters Date Type Specialty Care Team Description 02/11/2022 Appointment Laboratory Medicine Neli Hearn M.D. [address] [place] [phone] (Wo rk) 02/14/2022 Office Visit Family Medicine Lilli Hearn M.D. [address] [place] [phone] (Wo rk) documented as of this encounter Visit Diagnoses Not on filedocumented in this encounter Additional Health Concerns Assessment Noted Time PHQ-9 Depression Total Score: 4 04/16/2019 10:58 AM CS T documented as of this encounter Care Teams Corporate Planning Manager Relationship Specialty Start Date End Date Yolanda Colón APRN, C.N.P. PCP - General 09/08/16 documented as of this encounter
--- OUTSIDE RECORDS SUMMARY | 2021-12-28 09:56 | XMS_ITS | Encounter Summary ---
:1945 Author Organization [facility] Address [address] [place] [address] Care Team Providers Name Role Phone Yolanda Colón APRN, C.N.P. Primary Care Provider [phone] Reason for Visit Reason Comments Communication Vertigo Encounter Details Date Type Department Care Team Description 09/14/2021 Clinical Communication Department of Lavon Colón Family Medicine in Yolanda Hart, (Vertigo) AMBER Michael, C.N.P. [place] [address] [facility], [address] [place] [phone] Social History Tobacco Use Types Packs/Day Years [...] or relatives? How often do you attend nondenominational or 1 to 4 times per year 11/2019 lutheran services? 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 - 09/14/2021 3:30 PM CDT S: Patient called clinic stating his vertigo has returned after getting slightly better for a short time. B: Per office visit note Dr. Lilli Hearn 08/25/2021: #1 Vertigo I switched him to meclizine and have him schedule it. I advised him that he may have symptoms for the next couple of days before it starts to diminish in intensity. Hopefully by the end of the week he will be feeling much better but he may have symptoms for several more days. He will let me know if hehas persistent symptoms after 5-7 days. Follow-up next week it is not improving. He is agreeable to that plan. Patient states he is out of the meclizine medication at this time. He is wondering the next steps. A: Recommended office visit to re-evaluate vertigo symptoms and review medications. R: Patient accepted appointment with Dr. Hearn 09/15/21 at 8:00 am. Telephone Encounter - Margo Lopez - 09/14/2021 9:04 AM CDT SYMPTOM ADVICE Worsening symptoms Duration of symptoms: a few weeks Has patient been seen for this in the past? Yes- when & where Alec 08/[address] Hearn Additional information: Medhat would like tpo talk to someone as his virtigo was getting better but is coming back again. He wants to know what he should do. Special calling instructions: I see you have the portal; would you prefer a response through that or a phone call? Phone call documented in this encounter Plan of Treatment Upcoming Encounters Date Type Specialty Care Team Description 02/11/2022 Appointment Laboratory Medicine Neli Hearn M.D. [address] [place] [phone] (Wo rk) 02/14/2022 Office Visit Family Medicine Lilli Hearn M.D. [address] [place] [phone] (Wo rk) documented as of this encounter Visit Diagnoses Not on filedocumented in this encounter Additional Health Concerns Assessment Noted Time PHQ-9 Depression Total Score: 4 04/16/2019 10:58 AM CS T documented as of this encounter Care Teams Cushion Mat Maker Relationship Specialty Start Date End Date Yolanda Colón APRN, C.N.P. PCP - General 09/08/16 documented as of this encounter
--- OUTSIDE RECORDS SUMMARY | 2021-12-28 09:56 | XMS_ITS | Encounter Summary ---
:1945 Author Organization [facility] Address [address] [place] [address] Care Team Providers Name Role Phone Yolanda Colón APRN, C.N.P. Primary Care Provider [phone] Encounter Details Date Type Department Care Team Description 08/09/2021 Hospital Encounter Department of Lilli Hearn endy Mellitus Laboratory Rachel Kaplan Type 2 Hyperglycemia Medicine in [address] [facility] ([facility] [address] [address] [facility] [phone] [place], [place] (Work) [phone] Social History Tobacco Use Types Packs/Day Years [...] or relatives? How often do you attend restorationist or 1 to 4 times per year 11/2019 anabaptist services? 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 0 GLUCOSAMINE/CHONDR NOONAN A Take 1 tablet by 0 2013 SOD (OSTEO BI-FLEX ORAL) mouth 2 (two) times a day. losartan (COZAAR) 100 mg TAKE 1 TABLET BY 90 tablet 3 05/28 tablet MOUTH DAILY. metFORMIN XR Take 1 tablet (500 90 tablet 3 05/14/202104/27 (GLUCOPHAGE-XR) 500 mg mg total) by mouth 24 hr tablet daily with breakfast. MULTIVITAMIN WITH Take 1 tablet by 0 03/11/2015 MINERALS ORAL mouth daily. omega-3 fatty acids 500 Take 2 tablets by 0 07/16 mg capsule mouth daily. Capsules 1200 mg, take 2 caps daily omeprazole (PriLOSEC) 20 TAKE ONE (1) CAPSULE [address] capsule BY MOUTH DAILY pravastatin (PRAVACHOL) TAKE 1 TABLET (80 MG 90 tablet 3 80 mg tablet TOTAL) BY MOUTH AT BEDTIME. terazosin (HYTRIN) 1 mg TAKE 1 CAPSULE BY 90 capsule 3 05/28 capsule MOUTH DAILY. True Metrix Glucose Test 2 (two) times a day. 0 0 05/07/2021 Strip strips for testing TRUEplus Lancets 33 TESTING 2 TIMES A 0 2 gauge misc DAY amLODIPine (NORVASC) 5 TAKE 1 TABLET BY 90 tablet 0 06/07/ 022 08/11/2021 mg tablet MOUTH DAILY. buPROPion XL (WELLBUTRIN TAKE 1 TABLET BY 90 tablet 1 04/1308/11/2021 XL) 300 mg 24 hr tablet MOUTH EVERY MORNING. furosemide (LASIX) 20 mg Take 1 tablet (20 mg 90 tablet 3 0 04/20/2021 10/12/2021 tablet total) by mouth 2 (two) times a day. naproxen (NAPROSYN) 500 STATES HE ONLY TAKES 90 tablet 1 09/15/2021 mg tablet IT IF HIS BACK HURTS. STATES HE TAKES THIS ABOUT 3-4 TIMES PER WEEK documented as of this encounter Plan of Treatment Upcoming Encounters Date Type Specialty Care Team Description 02/11/2022 Appointment Laboratory Medicine Neli Hearn M.D. [address] [place] [phone] (Wo rk) 02/14/2022 Office Visit Family Medicine Lilli Hearn M.D. [address] [place] [facility] [address] (Wo rk) documented as of this encounter Procedures Procedure Name Priority Date/Time Associated Diagnosis Comme nts HEMOGLOBIN A1C, B Routine 08/09/2021 8:32 AM Diabetes Mellitus Type Results for this CDT 2 Hyperglycemia (HCC) proced ure are in the results section. BASIC METABOLIC Routine 08/09/2021 8:32 AM Diabetes Mellitus T ype Results for this PANEL, S/P CDT 2 Hyperglycemia (HCC) proced ure are in the results section. documented in this encounter Results (ABNORMAL) Basic Metabolic Panel (08/09/2021 8:32 AM CDT) P athologist Signature Potassium, P 4.2 3.6 - 5.2 08/09/2021 [facility] mmol/L 12:44 PM CDT Sodium, P 136 135 - 145 08/09/2021 [facility] mmol/L 12:44 PM CDT Chloride, P 102 98 - 107 08/09/2021 [facility] mmol/L 12:44 PM CDT Bicarbonate, P 25 22 - 29 08/09/2021 [facility] mmol/L 12:44 PM CDT Anion Gap, P 9 7 - 15 08/09/2021 [facility] 12:44 PM CDT BUN (Blood Urea 17 8 - 24 08/09/2021 [facility] Nitrogen), P mg/dL 12:44 PM CDT Creatinine 1.01 0.74 - 08/09/2021 [facility] 1.35 mg/dL 12:44 PM CDT eGFR-Black/Afric 85 >=60 08/09/2021 [facility] an Malaysian mL/min/BSA 12:44 PM CDT Comment: ----ADDITIONAL INFORMATION---- Estimated GFR calculated using the 2009 CKD_EPI creatinine equation. eGFR Non-Black/ 73 >=60 mL/min/BSA 08/09/2021 12:44 PM CDT [facility] Comment: ----ADDITIONAL INFORMATION---- Estimated GFR calculated using the 2009 CKD_EPI creatinine equation. Calcium, Total, P 9.1 8.8 - 10.2 mg/dL 08/09/2021 12:4 4 PM CDT [facility] Glucose, P 190 (H) 70 - 140 mg/dL 08/09/2021 12:44 PM CDT [facility] Specimen Anatomical Collection Method Collection Time Receive d Time (Source) Location / / Volume Laterality Blood (Blood, 08/09/2021 8:32 AM 08/10/19 22 Venous) CDT 11:48 AM CDT Lilli Hearn M.D. LAB BLOOD ADD-ON Performing Organization Address City/[facility] Phon e Number [address] [place] [address] (ABNORMAL) Hemoglobin A1c (08/09/2021 8:32 AM CDT) athologist Signature Hemoglobin A1c, 7.8 (H) 4.2 - 5.6 08/09/2021 [facility] B % 12:46 PM CDT Comment: Hemoglobin A1c values greater than or eq ual to 6.5 percent are diagnostic for diabetes mellitus. ?? Diagnosis should be confirmed by repeat testing. ??In diabet ic patients, HbA1c goals should be discussed with healthcar e provider. Specimen Anatomical Collection Method Collection Time Receive d Time (Source) Location / / Volume Laterality Blood (Blood, 08/09/2021 8:32 AM 08/10/19 22 Venous) CDT 11:48 AM CDT Lilli Hearn M.D. LAB BLOOD ADD-ON Performing Organization Address City/[facility]/ZIP Code Phon e Number [address] [place] [place] [address] [place] [address] [facility] documented in this encounter Visit Diagnoses Diagnosis Diabetes Mellitus Type 2 Hyperglycemia ( HCC) documented in this encounter Additional Health Concerns Assessment Noted Time PHQ-9 Depression Total Score: 4 04/16/2019 10:58 AM CS T documented as of this encounter Care Teams Leather Colorer Relationship Specialty Start Date End Date Yolanda Colón APRN, C.N.P. PCP - General 09/08/16 documented as of this encounter
--- OUTSIDE RECORDS SUMMARY | 2021-12-28 09:56 | XMS_ITS | Encounter Summary ---
:1945 Author Organization [facility] Address [address] [place] [address] Care Team Providers Name Role Phone Yolanda Colón APRN, C.N.P. Primary Care Provider [phone] Reason for Visit Reason Comments Med Refill Encounter Details Date Type Department Care Team Description 05/27/2021 Refill Department of Family Medicine Yolanda Colón APRN, Med Refill in [facility] lela C.N.P. [address] [place], [place] [phone] [place] [phone] (Wo rk) Social History Tobacco Use Types [...] or relatives? How often do you attend adventist or 1 to 4 times per year 11/2019 latter day services? 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 - 05/27/2021 12:14 PM CST Last office visit 05/14/2021 Dr Hearn Blood pressure 134/78 Future appt 08/[address] Hearn OR DICTIONARY documented in this encounter Plan of Treatment Upcoming Encounters Date Type Specialty Care Team Description 02/11/2022 Appointment Laboratory Medicine Neli Hearn M.D. [address] [place] [phone] (Wo rk) 02/14/2022 Office Visit Family Medicine Lilli Hearn M.D. [address] [place] [address] (Wo rk) documented as of this encounter Visit Diagnoses Not on filedocumented in this encounter Additional Health Concerns Assessment Noted Time PHQ-9 Depression Total Score: 4 04/16/2019 10:58 AM CS T documented as of this encounter Care Teams Forestry Scientist Relationship Specialty Start Date End Date Yolanda Colón APRN, C.N.P. PCP - General 09/08/16 documented as of this encounter
--- OUTSIDE RECORDS SUMMARY | 2021-12-28 09:56 | XMS_ITS | Encounter Summary ---
:1945 Author Organization [facility] Address [address] [place] [address] Care Team Providers Name Role Phone Yolanda Colón APRN C.N.P. Primary Care Provider [phone] Reason for Referral Outpatient (Routine) - Closed Specialty Diagnoses / Procedures Referred By Contact Refer red To Contact Family Medicine Lilli Hearn M .D. [facility] [address] [place] [address] Referral ID Status Reason Start Date Expiration Date Visits Requ ested Visits Authorized [id number] Closed 05/05/2021 05/05/2022 1 1 [employer] Reason for Visit Reason Comments Sore Throat Since having covid19 Shortness of Breath Chest discomfort Appointment Request (Routine) - Closed Specialty Diagnoses / Procedures Referred By Contact Refer red To Contact Family Medicine Referral ID Status Reason Start Date Expiration Date Visits Requ ested Visits Authorized [id number] Closed 05/03/2021 05/03/2022 1 1 Encounter Details Date Type Department Care Team Description 05/05/2021 Office Visit Department of Family Lilli Hearn S inusitis Acute (Primary Dx); Medicine in M.D. Shortness Of Breath; Terri Michael [address] [facility]; [address] [place], [place] Obstructive [place] [phone] Social History Tobacco Use Types Packs/Day Years [...] or relatives? How often do you attend quaker or 1 to 4 times per year 11/2019 moravian services? Do you belong to any clubs or No 12/04/2019 organizations such as quaker groups, unions, fraternal or athletic groups, or [...] at Date Recorded Male 04/20/2021 3:56 PM [employer] documented as of this encounter Last Filed Vital Signs Vital Sign Reading Time Taken Comments Blood Pressure 155/85 05/05/2021 8:26 AM [employer] Pulse 85 05/05/2021 8:26 AM [employer] Temperature 37.1 ??C (98.8 ??F) 05/05/2021 8:26 AM [employer] Respiratory Rate 20 05/05/2021 8:26 AM [employer] Oxygen Saturation 99% 05/05/2021 8:26 AM [employer] Inhaled Oxygen Concentration - - Weight 154 kg (338 lb 11.2 oz) 05/05/2021 8:26 AM [employer] Height 176 cm (5' 9.29) 05/05/2021 8:26 AM [employer] Body Mass Index 49.6 05/05/2021 8:26 AM [employer] documented in this encounter Progress Notes Lilli Hearn M.D. - 05/05/2021 8:30 AM CST SUBJECTIVE CHIEF COMPLAINT / REASON FOR VISIT Cristi Macdonald is a 75 y.o. male who presents for evaluation of Sore Throat (Since having covid19) and Shortness of Breath (Chest discomfort). HISTORY OF PRESENT ILLNESS Patient is here today for 3 week history of sore throat postnasal drip congestion dyspnea exertion and headaches. He had COVID on April 20. For the most part most of his symptoms are improved otherthan the shortness of breath with which is better but still lingering. He just does not quite feel himself. He has had quite a bit of loose cough intermittently as well and some occasional nausea. He does not have a history of sinus infection he does not have a new ill experiences new ill exposures. He is a nonsmoker. He has had all the immunizations and boosters. No chest pain or pressure. He does have some ear plugging. The following portions of the patient's history were reviewed and updated as appropriate: allergies,current medications, medical history, social history and problem list. PROBLEM LIST: Patient Active Problem List Diagnosis ??? Hypertension ??? Morbid Obesity Body Mass Index 45.0-49.9 Adult (HCC) ??? Gastroesophageal Reflux Disease NOS ??? Hypercholesterolemia ??? Obstructive Sleep Apnea Adult ??? Psoriasis ??? Hypothyroidism ??? Benign Prostatic Hyperplasia Without Obstruction ??? Venous Insufficiency Chronic Peripheral Current Outpatient Medications: ??? amLODIPine (NORVASC) 5 mg tablet, TAKE 1 TABLET (5 MG TOTAL) BY MOUTH DAILY., Disp: 90 tablet, Rfl: 3 ??? aspirin [address] tablet, Take 81 mg by mouth., Disp: , Rfl: ??? buPROPion XL (WELLBUTRIN XL) 300 mg 24 hr tablet, TAKE 1 TABLET BY MOUTH EVERY MORNING., Disp: 90 tablet, Rfl: 1 ??? furosemide (LASIX) 20 mg tablet, Take 1 tablet (20 mg total) by mouth 2 (two) times a day., Disp: 90 tablet, Rfl: 3 ??? GLUCOSAMINE/CHONDR NOONAN A SOD (OSTEO BI-FLEX ORAL), Take 1 tablet by mouth 2 (two) times a day., Disp: , Rfl: ??? losartan (COZAAR) 100 mg tablet, TAKE 1 TABLET (100 MG TOTAL) BY MOUTH DAILY., Disp: 90 tablet, Rfl: 3 ??? MULTIVITAMIN WITH MINERALS ORAL, Take 1 tablet by mouth daily., Disp: , Rfl: ??? naproxen (NAPROSYN) 500 mg tablet, STATES HE ONLY TAKES IT IF HIS BACK HURTS. STATES HE TAKES THIS ABOUT 3-4 TIMES PER WEEK, Disp: 90 tablet, Rfl: 1 ??? omega-3 fatty acids 500 mg capsule, Take 2 tablets by mouth daily. Capsules 1200 mg, take 2 capsdaily , Disp: , Rfl: ??? omeprazole (PriLOSEC) [address] capsule, TAKE ONE (1) CAPSULE BY MOUTH DAILY, Disp: 90 capsule, Rfl: 3 ??? pravastatin (PRAVACHOL) 80 mg tablet, TAKE 1 TABLET (80 MG TOTAL) BY MOUTH AT BEDTIME., Disp: 90tablet, Rfl: 3 ??? terazosin (HYTRIN) 1 mg capsule, TAKE 1 CAPSULE (1 MG TOTAL) BY MOUTH DAILY., Disp: 90 capsule, Rfl: 3 ??? cefUROXime (CEFTIN) 500 mg tablet, Take 1 tablet (500 mg total) by mouth every 12 (twelve) hoursfor 10 days., Disp: 20 tablet, Rfl: 0 OBJECTIVE BP 155/85 (BP Location: Right arm, Patient Position: Sitting, Cuff Size: Large) Pulse 85 Temp 37.1 ??C (Temporal) Resp 20 Ht 176 cm Wt (!) 154 kg SpO2 99% BMI 49.60 kg/m?? PHYSICAL EXAM General: Patient is in no apparent distress and is alert and oriented. Mood and affect are bright and engaging. Patient is very pleasant and is articulate and a good historian. He is morbidly obese. HEENT: TMs are clear. Nares are clear. Posterior pharynx clear. He does have some discolored postnasal drip noted. Teeth in good repair. No scleral icterus is noted. Pupils equal, round, react to light. No conjunctivitis Neck: Supple without lymphadenopathy, JVD, carotid bruits or thyromegaly. Lungs: Clear to auscultation bilaterally. Heart: Regular rate and rhythm without murmur. Abdomen: Soft, obese nontender without hepatosplenomegaly, rebound or rigidity. There is no CVA tenderness. No skin rashes. ASSESSMENT / PLAN #1 Sinusitis Acute I do suspect his acute sinusitis. He has discolored postnasal drip and he is having some central headaches and some pressure. We opted not to do imaging at this time. Some of this could be post COVID syndrome as well but because of his productive sputum and worsening headaches and pressures we opted to treat him with an antibiotic. He is certainly at risk because he uses a CPAP machine on a regular basis. #2 Shortness Of Breath Likely post COVID. He notes that this is improving over time. No cardiovascular symptomatology otherwise. #3 Hyperglycemia His blood sugars quite high so I will go ahead and order an A1c. - Hemoglobin A1c; Future; Expected date: 05/05/2021 - Hemoglobin A1c #4 Obstructive Sleep Apnea Adult He is currently using his CPAP machine we did discuss hygiene. Other orders - cefUROXime (CEFTIN) 500 mg tablet; Take 1 tablet (500 mg total) by mouth every 12 (twelve) hours for 10 days., Starting 05/05/2021, Until 05/15/2021, Normal - Basic Metabolic Panel; Future; Expected date: 05/05/2021 - CBC with Differential, Blood; Future; Expected date: 05/05/2021 - CBC with Differential, Blood - Basic Metabolic Panel - Family Medicine office visit (clinic); Future; Expected date: 05/07/2021 Answers for HPI/ROS submitted by the patient on 04/20/2021 No general issues: Yes No eye issues: Yes No ENT issues: Yes No heart issues: Yes Dry cough: Yes No GI issues: Yes No muscle/bone issues: Yes No skin issues: Yes No neurologic issues: Yes No mental health issues: Yes No blood/lymph issues: Yes No urinary/reproductive issues: Yes [employer] documented in this encounter Miscellaneous Notes Result Encounter Note - Lilli Hearn M.D. - 05/07/2021 11:25 AM [employer] Called patient and notified of results. [employer] documented in this encounter Plan of Treatment Upcoming Encounters Date Type Specialty Care Team Description 02/11/2022 Appointment Laboratory Medicine Neli Hearn M.D. [address] [place] [address], [place] [phone] (Wo rk) 02/14/2022 Office Visit Family Medicine Lilli Hearn M.D. [address] [place] [facility] [phone] (Wo rk) Scheduled Referrals Name Type Priority Associated Diagnoses Order S [facility] Family Medicine Outpatient Referral Routine Expec deidre: office visit 05/07/2021 (clinic) (Approximate), Expires: 08/02/2022 documented as of this encounter Procedures Procedure Name Priority Date/Time Associated Diagnosis Comme nts CBC WITH Routine 05/05/2021 9:28 AM Sinusitis Acu te Results for this DIFFERENTIAL, B [employer] Shortness Of Breath proce dure are in the results section. HEMOGLOBIN A1C, B Routine 05/05/2021 9:28 AM Hyperglycemia Res ults for this [employer] procedure are i n the results section. BASIC METABOLIC Routine 05/05/2021 9:28 AM Sinusitis Acu te Results for this PANEL, S/P [employer] Shortness Of Breath procedur e are in the results section. documented in this encounter Results (ABNORMAL) Hemoglobin A1c (05/05/2021 9:28 AM [employer]) Analysis Performed At Patho logist Time Signature Hemoglobin A1c, 11.1 (H) 4.2 - 5.6 05/05/2021 [facility] B % 2:27 PM [employer] Comment: Hemoglobin A1c values greater than or eq ual to 6.5 percent are diagnostic for diabetes mellitus. ?? Diagnosis should be confirmed by repeat testing. ??In diabet ic patients, HbA1c goals should be discussed with healthcar e provider. Specimen Anatomical Collection Method Collection Time Receive d Time (Source) Location / / Volume Laterality Blood (Blood, 05/05/2021 9:28 AM 05/05/19 1:38 Venous) [employer] PM [employer] Lilli Hearn M.D. LAB BLOOD ADD-ON Performing Organization Address City/State/ZIP Code Phon e Number [facility]- [address] [place], [place] [address] [facility] [place] [address] [place] [address] [address] [facility] CBC with Differential, Blood (05/05/2021 9:28 AM [employer]) P athologist Signature Hemoglobin 13.8 13.2 - 05/05/2021 [facility] 16.6 g/dL 12:08 PM [employer] Hematocrit 41.3 38.3 - 05/05/2021 [facility] 48.6 % 12:08 PM [employer] Erythrocytes 4.51 4.35 - 05/05/2021 [facility] 5.65 12:08 PM [employer] x10(12)/L MCV 91.6 78.2 - 05/05/2021 [facility] 97.9 fL 12:08 PM [employer] RBC Distrib Width 13.0 11.8 - 05/05/2021 [facility] 14.5 % 12:08 PM [employer] Platelet Count 271 135 - 317 05/05/2021 [facility] x10(9)/L 12:08 PM [employer] Leukocytes 7.0 3.4 - 9.6 05/05/2021 [facility] x10(9)/L 12:08 PM [employer] Neutrophils 3.86 1.56 - 05/05/2021 [facility] 6.45 12:08 PM [employer] x10(9)/L Lymphocytes 2.41 0.95 - 05/05/2021 [facility] 3.07 12:08 PM [employer] x10(9)/L Monocytes 0.53 0.26 - 05/05/2021 [facility] 0.81 12:08 PM [employer] x10(9)/L Eosinophils 0.13 0.03 - 05/05/2021 [facility] 0.48 12:08 PM [employer] x10(9)/L Basophils 0.04 0.01 - 05/05/2021 [facility] 0.08 12:08 PM [employer] x10(9)/L Specimen Anatomical Collection Method Collection Time Receive d Time (Source) Location / / Volume Laterality Blood (Blood, 05/05/2021 9:28 AM 05/05/19 22 Venous) [employer] 11:39 AM [employer] Lilli Hearn M.D. LAB BLOOD ADD-ON Performing Organization Address City/State/ZIP Code Phon e Number [facility]- [facility] [address] [place], [place] [address] [place] [address] (ABNORMAL) Basic Metabolic Panel (05/05/2021 9:28 AM [employer]) P athologist Signature Potassium, P 3.9 3.6 - 5.2 05/05/2021 [facility] mmol/L 12:16 PM [employer] Sodium, P 135 135 - 145 05/05/2021 [facility] mmol/L 12:16 PM [employer] Chloride, P 99 98 - 107 05/05/2021 [facility] mmol/L 12:16 PM [employer] Bicarbonate, P 27 22 - 29 05/05/2021 [facility] mmol/L 12:16 PM [employer] Anion Gap, P 9 7 - 15 05/05/2021 [facility] 12:16 PM [employer] BUN (Blood Urea 13 8 - 24 05/05/2021 [facility] Nitrogen), P mg/dL 12:16 PM [employer] Creatinine 0.95 0.74 - 05/05/2021 [facility] 1.35 mg/dL 12:16 PM [employer] eGFR-Black/Afric >90 >=60 05/05/2021 [facility] an Central African mL/min/BSA 12:16 PM [employer] Comment: ----ADDITIONAL INFORMATION---- Estimated GFR calculated using the 2009 CKD_EPI creatinine equation. eGFR Non-Black/ 79 >=60 mL/min/BSA 05/05/2021 12:16 PM [employer] [facility] Comment: ----ADDITIONAL INFORMATION---- Estimated GFR calculated using the 2009 CKD_EPI creatinine equation. Calcium, Total, P 9.6 8.8 - 10.2 mg/dL 05/05/2021 12:1 6 PM [employer] [facility] Glucose, P 303 (H) 70 - 140 mg/dL 05/05/2021 12:16 PM [employer] [facility] Specimen Anatomical Collection Method Collection Time Receive d Time (Source) Location / / Volume Laterality Blood (Blood, 05/05/2021 9:28 AM 05/05/19 22 Venous) [employer] 11:39 AM [employer] Lilli Hearn M.D. LAB BLOOD ADD-ON Performing Organization Address City/State/ZIP Code Phon e Number [facility]- [address] [place] [address] [facility] [place], [place] [id number] [place] [address] documented in this encounter Visit Diagnoses Diagnosis Sinusitis Acute - Primary Shortness Of Breath Hyperglycemia Obstructive Sleep Apnea Adult documented in this encounter Additional Health Concerns Infection Onset Date Last Indicated Resolved Time COVID19 04/20/2021 04/20/2021 05/10/2021 5:11 AM [employer] Assessment Noted Time PHQ-9 Depression Total Score: 4 04/16/2019 10:58 AM CS T documented as of this encounter Care Teams Longshore Equipment Operator Relationship Specialty Start Date End Date Yolanda Colón APRN, C.N.P. PCP - General 09/08/16 documented as of this encounter
--- OUTSIDE RECORDS SUMMARY | 2021-12-28 09:56 | XMS_ITS | Encounter Summary ---
:1945 Author Organization [facility] Address [address] [place] [address] Care Team Providers Name Role Phone Yolanda Colón APRN, C.N.P. Primary Care Provider [phone] Reason for Visit Reason Comments Sore Throat Feels perfectly fine, except sore throat. Positive Covid. Gargling lost some bloody mucous Encounter Details Date Type Department Care Team Description 04/23/2021 Office Visit Urgent Care, [facility], Sor e Throat (Primary [place], in [place], AMBER, C.N.P., Dx) [place] D.N.P. [address] [place] [phone] Social History Tobacco Use Types Packs/Day Years [...] or relatives? How often do you attend orthodoxy or 1 to 4 times per year 11/2019 yazidi services? 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 documented as of this encounter Last Filed Vital Signs Vital Sign Reading Time Taken Comments Blood Pressure 156/82 04/23/2021 5:17 PM CRISIS NURSE Pulse 89 04/23/2021 5:17 PM CRISIS NURSE Temperature 37 ??C (98.6 ??F) 04/23/2021 5:17 PM CRISIS NURSE Respiratory Rate - - Oxygen Saturation 95% 04/23/2021 5:17 PM CRISIS NURSE Inhaled Oxygen Concentration - - Weight 154 kg (340 lb) 04/23/2021 5:17 PM CRISIS NURSE Height 176 cm (5' 9.29) 04/23/2021 5:17 PM CRISIS NURSE Body Mass Index 49.79 04/23/2021 5:17 PM CRISIS NURSE documented in this encounter Patient Instructions Patient InstructionsMikhail Nguyen APRN, C.N.P., D.N.P. - 04/23/2021 5:15 PM CST Images from the original note were not included. Patient Education Sore Throat Care Sore Throat Sore throats are common. Read this material to help understand what causes a sore throat and what you can do to care for it so you feel better. Causes of a sore throat Viral infection Most sore throats are caused by a viral infection (virus). Viral infections include: ?? Cold (sneezing; runny nose; cough; hoarseness; itchy, teary, or red eyes). ?? Influenza (flu). ?? Croup (harsh, barking cough). ?? Mononucleosis (mono). A sore throat caused by a viral infection does not need to be tested or treated with antibiotic medication. Antibiotic medications have no effect on viral infections. Antibiotic medications only help bacterial infections. A sore throat caused by a viral infection gets better on its own with at-home care, usually within 5to 10 days. See ???Sore Throat Care?? for things you can do to help feel better as your sore throatcaused by a virus runs its course. Bacterial infection Less than 30 percent of sore throats are caused by a bacterial infection (bacteria). ???Strep throat?? is an infection caused by the bacteria Streptococcus pyogenes, also known as Group A Streptococcus. Group A Streptococcus is the most common bacteria to cause a sore throat. However, only 20 to 30 percent of children who are 3 to 15 years old have strep as the cause of their sore throat. See ???Test and treatment for a strep throat infection.?? Temporary swelling and redness of the tonsils, called tonsillitis, can happen with either a viral orbacterial throat infection. Important to know Some people have the misconception that every sore throat needs to be tested and treated right away.You are not endangering your health or your child???s health if you do not have a test right away. While it is important to treat a strep throat infection to help prevent rare, but serious complications such as acute rheumatic fever (a disease that affects the heart) or complex infections, treatmentcan wait 7 days after symptoms begin without risk of complications. If you or your child has a sore throat, consider waiting at least 48 hours before calling your health care provider for an appointment. You may find that your sore throat gets better by doing the at-home care suggestions on page 3. Other causes of a sore throat ?? Allergies. Having seasonal allergies or allergies to pet dander, molds, dust and pollen can causea sore throat. It can be made worse by postnasal drip, which can irritate and inflame the throat. ?? Dryness. Dry indoor air can make your throat feel rough and scratchy, especially when you first wake up. Breathing through your mouth -- often because of a stuffy nose -- also can cause a dry, sore throat. ?? Irritants. Smoking, secondhand smoke, household chemicals, and outdoor air pollution can cause ongoing throat irritation and sore throat. Chewing tobacco, drinking alcohol and eating spicy foods also can irritate your throat. ?? Chronic or frequent sinus infections. Drainage from the nose can irritate the throat or spread infection. Clearing your throat often also can cause a sore throat. ?? Throat muscle strain. Yelling at a sporting event, trying to talk to someone in a noisy environment, or talking for long periods without rest can result in a sore throat and hoarseness. ?? Gastroesophageal reflux disease (GERD). GERD is a digestive system disorder in which stomach acidor other stomach contents back up into the esophagus. Along with a sore throat, GERD can cause hoarseness and the sensation of a lump in your throat. ?? An abscess or epiglottitis. An abscess (infected area in the throat) or epiglottitis (the small cartilage ???lid?? that covers the windpipe swells) can cause a sore throat. Both causes can block the airway, which is a medical emergency. Your health care team can determine what further evaluation, testing, and treatment is needed if your sore throat is not caused by a viral or bacterial infection. Sore Throat Care At-home care If you or your child has a sore throat, try the following to help it feel better. ?? Take a pain reliever as needed. Follow product instructions. ? Acetaminophen (Tylenol???, generic acetaminophen) ? Ibuprofen (Advil???, Motrin IB???, generic ibuprofen) ? Naproxen (Aleve???, generic naproxen) ?? Get plenty of sleep and rest your voice. ?? Drink plenty of fluids to keep your throat lubricated and moist to ease swallowing and to preventdehydration. ?? Drink beverages and eat foods that are soothing and soft. Limit or avoid spicy foods or acidic foods such as citrus fruits and orange juice if they irritate your throat. ?? Do not smoke or let anyone smoke around you or your child. ?? Avoid cleaning products, paint fumes and smoke that irritate your throat. ?? Gargle with saltwater several times a day to help relieve throat pain. Mix 1/4 teaspoon (1.4 grams) of table salt in 8 ounces (237 milliliters) of warm water. Gargle the solution and then spit it out. ?? Humidify the air in your home. Use a cool-mist humidifier or vaporizer to add moisture to the air. Clean it daily because bacteria and molds can grow in some humidifiers. Or sit for several minutes in a steamy bathroom. ?? Suck on hard candy or lozenges. Because these are a choking hazard, children 4 years old and younger should not use them. ?? Use saline nasal spray to keep mucous membranes moist. Although a number of alternative treatments are commonly used to treat sore throat, evidence is limited about what works and what does not. Check with your health care provider before using any herbal remedies, as they can interact with prescription medications and may not be safe for children, women and people with certain health conditions. Avoid close contact with people until your symptoms end and wash your hands often to prevent spreading your sore throat to others. Test and treatment for a strep throat infection Your health care provider will determine if a test for strep throat is needed. He or she may: ?? Ask about your symptoms. ?? Take your temperature. ?? Look at your throat and tonsils, and likely your ears and nasal passages. ?? Gently feel your neck to check for swollen glands (enlarged lymph nodes). ?? Listen to your breathing. Most often, a strep throat test is not needed. If a test is needed, your health care provider rubs asterile swab over your tonsils and the back of your throat to get a sample of secretions to be tested for bacterial infection in your throat. It is not painful but it may cause brief gagging. If the strep throat test is negative, you likely have a viral infection and do not need to follow-upfurther. If the test shows or confirms that you have a strep throat infection, your health care provider willlikely prescribe an antibiotic medication to treat the infection and prevent complications. It is important to take all of the medication exactly as instructed by your health care provider or pharmacist to destroy the bacteria. If you do not, the infection could get worse or come back, you could have other complications, and the infection could spread to others. Once you have taken an antibiotic for at least 24 hours, have no fever and feel better, you may return to work, school or daycare. Please note: If you have been around someone who has strep throat but you do not have symptoms, you probably do not need to be tested. A note about antibiotic medication It is important to take an antibiotic medication only when it is needed. Taking an antibiotic when it is not needed can be harmful and may lead to side effects such as diarrhea, rash, nausea and stomach pain. More severe side effects may rarely happen, including life-threatening allergic reactions, kidney toxicity and severe skin reactions. Taking unnecessary antibiotics can lead to antibiotic resistance. This means an antibiotic may not help with future bacterial infections. Common antibiotics cannot kill infections caused by resistant germs. When to Contact Your Health Care Provider Get emergency care right away if you have or your child has: ?? Chest pain. ?? Difficulty breathing. ?? Shortness of breath. Contact your health care provider if you have or your child has a sore throat that is severe, lasts longer than one week, recurs several times, or if you have any of the following along with a sore throat: ?? Difficulty swallowing anything, including saliva. Young children tend to drool. ?? Trouble talking or opening your mouth. ?? A temperature lasting longer than 48 hours. Or a temperature recurs over several days. If your child is younger than three months old and has a temperature, call your child???s sofie care provider right away. ?? Symptoms such as joint pain, body aches, headache, earache, rash, sore jaw, nausea or vomiting. ?? White patches or pus on your tonsils or the back of your throat. ?? Sore, swollen lymph nodes (glands) in your neck, or a lump in your neck. ?? Hoarseness lasting more than two weeks. ?? Blood in saliva or phlegm. ?? Symptoms of dehydration (dry, sticky mouth; thirst; decreased urination or fewer wet diapers; fewor no tears when crying; sleepiness or tiredness; muscle weakness; headache; dizziness or lightheadedness). If you or your child is diagnosed with strep throat, contact your health care provider if: ?? You do not feel better or continue to have a temperature after taking the antibiotic for 48 hours. ?? You continue to have a sore throat, temperature, pain or swelling in the joints, shortness of breath or a rash after treatment is finished, even as long as three weeks after the infection. If you have questions or concerns about your sore throat or medication, contact your health care provider. Preventing Infections The germs that cause viral and bacterial infections are contagious. To help prevent spreading infection, follow these tips and teach children to do the same: ?? Wash your hands thoroughly and often, especially after using the toilet, before eating, and aftersneezing or coughing. ?? Use an alcohol-based hand abrasive grader if washing your hands with soap and water is not possible. ?? Cough or sneeze into a tissue and throw it away. If necessary, cough or sneeze into your arm. ?? Do not share food, drinking glasses, eating utensils, and other personal items. ?? Do not touch public phones or drinking fountains with your mouth. ?? Regularly clean phones, TV remotes and computer keyboards with sanitizing cleanser. When you travel, clean phones and remotes in your hotel room. ?? If you smoke, quit. Smoking increases the likelihood of infections. Talk with your health care provider if you need help quitting. ?? Avoid close contact with people who are sick. ?? Stay indoors as much as possible on high-pollution days. ?? Wear a filtering mask when cleaning to avoid inhaling dust or airborne particles from cleaning products. ?? Throw away your toothbrush and use a new one after starting an antibiotic. Keep in mind that you are more likely to get an infection if you have lowered immunity. Common causes of lowered immunity include stress, fatigue, poor diet, diabetes, treatment with steroids or chemotherapy drugs, and HIV. This material is for your education and information only. This content does not replace medical advice, diagnosis or treatment. New medical research may change this information. If you have questions about a medical condition, always talk with your health care provider. ? 2013 [facility] ([facility]). All rights reserved. [id number] IS NURSE documented in this encounter Progress Notes Mikhail Nguyen APRN, C.N.P., D.N.P. - 04/23/2021 5:15 PM CST SUBJECTIVE CHIEF COMPLAINT / REASON FOR VISIT Sore Throat (Feels perfectly fine, except sore throat. Positive Covid. Gargling lost some bloody mucous) HISTORY OF PRESENT ILLNESS Cristi Macdonald is a 75 y.o. male who presents to the urgent care for evaluation of his sore throat. Reports that he gargled with mouthwash this morning after which he thought he saw some chunks of bloody mucus. He also had a raspy voice. He feels that his sore throat is worse today. He is able to handle his secretions well. He tested positive for COVID on 04/20/2021. Home treatment measures include the use of prednisone and ibuprofen as well as johnson cough drops. REVIEW OF SYSTEMS A brief review of systems was negative except for that mentioned in the history of present of illness. The patient's social history, medical history, and home medications were reviewed in the electronic medical record. ALLERGIES/CONTRAINDICATIONS Allergies Allergen Reactions ??? Acetaminophen Other (see comments) States that he believes that he overdosed on tylenol. Advised not to take it any longer by his MDat the time. ??? Sulfa (Sulfonamide Antibiotics) Anxiety OBJECTIVE VITAL SIGNS BP 156/82 Pulse 89 Temp 37 ??C (Temporal) Ht 176 cm Wt (!) 154 kg SpO2 95% BMI 49.79 kg/m?? PHYSICAL EXAMINATION General: This patient is alert and in no acute distress. HEENT: Head is atraumatic and normocephalic. Sclera and conjunctivae appear clear without any injection or exudates. PERRLA. EOMs are intact bilateral. Auditory canals are normal without erythema or edema. TMs are pearly ovalle and intact without erythema. Oral cavity is adequately hydrated. Posterior pharynx is mildly erythematous. Uvula is midline. Airways intact. Neck: Supple without lymphadenopathy. Respiratory: Effort is easy. Lung sounds are clear to auscultation. Cardiovascular: S1, S2 are present. Normal rate and rhythm. Musculoskeletal: Grossly intact. No deformities are noted. Skin: Normal color, temperature and moisture. No rashes or lesions are noted. DIAGNOSTICS Recent Results (from the past 24 hour(s)) Strep Group A, PCR, Point of Care Collection Time: 04/23/21 5:45 PM Result Value Strep Group A, PCR, POCT Collected Strep Group A, PCR, Point of Care Collection Time: 04/23/21 6:49 PM Result Value Strep Group A, PCR, POCT Negative ASSESSMENT / PLAN #1 Sore Throat - Strep Group A, PCR, Point of Care Other orders - Strep Group A, PCR, Point of Care Strep PCR is negative. Suspect viral etiology for symptoms. Push fluids. Get plenty of rest. OTC and home care measures such as saltwater gargles, lozenges, cough drops, honey were discussed. Complete the course of steroids provided earlier this week and take ibuprofen as prescribed for pain or fever. Follow-up as needed for any further concerns. Follow-up sooner to ED for any worsening or concerningsymptoms as needed. Patient verbalized understanding and agree with this plan. No further needs at this time. Electronically signed by: Mikhail Nguyen APRN, C.N.PFamilia, D.N.P. 04/23/21 7:09 PM CRISIS NURSE IS NURSE documented in this encounter Plan of Treatment Upcoming Encounters Date Type Specialty Care Team Description 02/11/2022 Appointment Laboratory Medicine Neli Hearn M.D. [address] [facility] [place] [address] (Wo rk) 02/14/2022 Office Visit Family Medicine Lilli Hearn M.D. [address] [place] [facility] [phone] (Stephon rk) documented as of this encounter Procedures Procedure Name Priority Date/Time Associated Diagnosis Comme nts STREP GROUP A, PCR, Routine 04/23/2021 7:02 PM Re sults for this POCT CRISIS NURSE procedure are i n the results section. STREP GROUP A, PCR, Routine 04/23/2021 6:49 PM Re sults for this POCT CRISIS NURSE procedure are i n the results section. STREP GROUP A, PCR, Routine 04/23/2021 5:45 PM Sore Throat Re sults for this POCT CRISIS NURSE procedure are i n the results section. documented in this encounter Results Strep Group A, PCR, Point of Care (04/23/2021 7:02 PM CRISIS NURSE) P athologist Signature Strep Group A, Negative Negative 04/23/2021 NPR[facility] PCR, POCT 7:02 PM CRISIS NURSE Specimen Anatomical Collection Method Collection Time Receive d Time (Source) Location / / Volume Laterality Varies 04/23/2021 7:02 PM 2 7:17 CRISIS NURSE PM CRISIS NURSE Generic Rals LAB POCT ORDERABLES - DEVICE Performing Organization Address City/[facility]/ZIP Code Phon e Number [place] [address] [place], [place] [address] [facility] [place] [address] Strep Group A, PCR, Point of Care (04/23/2021 6:49 PM CRISIS NURSE) P athologist Signature Strep Group A, Negative Negative 04/23/2021 NPR[facility] PCR, POCT 6:49 PM CRISIS NURSE Specimen Anatomical Collection Method Collection Time Receive d Time (Source) Location / / Volume Laterality Varies 04/23/2021 6:49 PM 2 7:04 CRISIS NURSE PM CRISIS NURSE Generic Rals LAB POCT ORDERABLES - DEVICE Performing Organization Address City/[facility] Phon e Number [address] [place] [address] Strep Group A, PCR, Point of Care (04/23/2021 5:45 PM CRISIS NURSE) Analysis Performed At Patho logist Time Signature Strep Group A, Collected DEFAULT 04/23/2021 NPR[facility] PCR, POCT 6:47 PM CRISIS NURSE Specimen Anatomical Collection Method Collection Time Receive d Time (Source) Location / / Volume Laterality Varies (Throat) 04/23/2021 5:45 PM 2021 6:47 CRISIS NURSE PM CRISIS NURSE Mikhail Nguyen APRN C.N.P., D.N.P. LAB POCT ORDERABLES - DEVICE Performing Organization Address City/[facility]/ZIP Code Phon e Number [address] [facility] [place] [address] documented in this encounter Visit Diagnoses Diagnosis Sore Throat - Primary documented in this encounter Additional Health Concerns Infection Onset Date Last Indicated Resolved Time COVID19 04/20/2021 04/20/2021 05/10/2021 5:11 AM CRISIS NURSE Assessment Noted Time PHQ-9 Depression Total Score: 4 04/16/2019 10:58 AM SYMONE T documented as of this encounter Care Teams Machine Printer Hose Relationship Specialty Start Date End Date Yolanda Colón APRN, C.N.P. PCP - General 09/08/16 documented as of this encounter
--- OUTSIDE RECORDS SUMMARY | 2021-12-28 09:56 | XMS_ITS | Encounter Summary ---
:1945 Author Organization [facility] Address [address] [place] [address] Care Team Providers Name Role Phone Yolanda Colón APRN, C.N.P. Primary Care Provider [phone] Encounter Details Date Type Department Care Team Description 04/21/2021 Orders Only Department of Family Yolanda Colón, Medicine in [facility] AMBER, C. N.P. [place] [address] [facility] [address] [place] [phone] (Wo rk) Social History Tobacco Use Types [...] or relatives? How often do you attend yarsani or 1 to 4 times per year 11/2019 latter day services? 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 [address] [place] [phone] (Wo rk) 02/14/2022 Office Visit Family Medicine Lilli Hearn M.D. [address] [place] [phone] (Wo rk) documented as of this encounter Visit Diagnoses Not on filedocumented in this encounter Additional Health Concerns Infection Onset Date Last Indicated Resolved Time COVID19 Pending 04/20/2021 04/20/2021 04/21/2021 8:48 PM CHIEF PAYROLL CLERK Assessment Noted Time PHQ-9 Depression Total Score: 4 04/16/2019 10:58 AM CS T documented as of this encounter Care Teams Lead Teacher Relationship Specialty Start Date End Date Yolanda Colón APRN, C.N.P. PCP - General 09/08/16 documented as of this encounter
--- OUTSIDE RECORDS SUMMARY | 2021-12-28 09:56 | XMS_ITS | Encounter Summary ---
:1945 Author Organization [facility] Address [address] [place] [address] Care Team Providers Name Role Phone Yolanda Colón APRN C.N.P. Primary Care Provider [phone] Reason for Referral Outpatient (Routine) - Closed Specialty Diagnoses / Procedures Referred By Contact Refer red To Contact Family Medicine Lilli Hearn M .D. [address] [address] Referral ID Status Reason Start Date Expiration Date Visits Requ ested Visits Authorized [id number] Closed 05/14/2021 05/14/2022 1 1 TING ESTIMATOR Reason for Visit Reason Comments Follow-up Encounter Details Date Type Department Care Team Description 05/14/2021 Office Visit Department of Family Lilli Hearn D iabetes Mellitus Type 2 Hyperglycemia (HCC) (Primary Dx); Medicine in [place] Morbid Obesity Body Mass Index >= 35 wit h Comorbid Condition (HCC); [address] Hypertension And Chronic Kidney Disease Stage 2 [place], [place] [address] [address] [place], [place] [phone] (Wo rk) [address] [phone] Social History Tobacco Use Types Packs/Day Years [...] or relatives? How often do you attend temple or 1 to 4 times per year 11/2019 episcopal services? 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 documented as of this encounter Last Filed Vital Signs Vital Sign Reading Time Taken Comments Blood Pressure 134/78 05/14/2021 9:13 AM PRINTING ESTIMATOR Pulse 92 05/14/2021 9:13 AM PRINTING ESTIMATOR Temperature 36.8 ??C (98.3 ??F) 05/14/2021 9:13 AM PRINTING ESTIMATOR Respiratory Rate - - Oxygen Saturation 96% 05/14/2021 9:13 AM PRINTING ESTIMATOR Inhaled Oxygen Concentration - - Weight 148 kg (326 lb) 05/14/2021 9:13 AM PRINTING ESTIMATOR Height 176 cm (5' 9.29) 05/14/2021 9:13 AM PRINTING ESTIMATOR Body Mass Index 47.74 05/14/2021 9:13 AM PRINTING ESTIMATOR documented in this encounter Progress Notes Lilli Hearn M.D. - 05/14/2021 9:30 AM CST SUBJECTIVE CHIEF COMPLAINT / REASON FOR VISIT Cristi Macdonald is a 75 y.o. male who presents for evaluation of Follow-up. HISTORY OF PRESENT ILLNESS Patient is here today for follow-up. He has been doing well on the 500 mg of metformin. No loose stools or other concerns. He has been checking his blood sugars and they have been going okay. He is ranging anywhere from the mid 300s to a 180. He has had a general trend of decreasing sugars over the last couple of days. He has also lost quite a bit of weight over the last 9 days. He has lost 6 kilos grounds in that time frame. He met with the diet attention and has been very focused. He is very dedicated to the idea that she does not want to take medications for his diabetes. His congestion and URI symptoms have significantly improved as well. Generally he is doing better. The following portions of the patient's history were reviewed and updated as appropriate: allergies,current medications, medical history, social history and problem list. PROBLEM LIST: Patient Active Problem List Diagnosis ? ? Morbid Obesity Body Mass Index >= 35 with Comorbid Condition (HCC) ??? Gastroesophageal Reflux Disease NOS ??? Hypercholesterolemia ??? Obstructive Sleep Apnea Adult ??? Psoriasis ??? Hypothyroidism ??? Benign Prostatic Hyperplasia Without Obstruction ??? Venous Insufficiency Chronic Peripheral ??? 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 amLODIPine (NORVASC) 5 mg tablet, TAKE 1 TABLET (5 MG TOTAL) BY MOUTH DAILY., Disp: 90 tablet, Rfl: 3 ??? aspirin [address] tablet, Take 81 mg by mouth., Disp: , Rfl: ??? buPROPion XL (WELLBUTRIN XL) 300 mg 24 hr tablet, TAKE 1 TABLET BY MOUTH EVERY MORNING., Disp: 90 tablet, Rfl: 1 ??? cefUROXime (CEFTIN) 500 mg tablet, Take 1 tablet (500 mg total) by mouth every 12 (twelve) hoursfor 10 days., Disp: 20 tablet, Rfl: 0 ??? furosemide (LASIX) 20 mg tablet, Take [...] DAILY., Disp: 90 tablet, Rfl: 3 ??? metFORMIN XR (GLUCOPHAGE-XR) 500 mg 24 hr tablet, Take 1 tablet (500 mg total) by mouth daily with breakfast., Disp: 90 tablet, Rfl: 3 ??? MULTIVITAMIN [...] DAILY., Disp: 90 capsule, Rfl: 3 ??? True Metrix Glucose Test Strip strips, 2 (two) times a day. for testing, Disp: , Rfl: ??? TRUEplus Lancets 33 gauge misc, TESTING 2 TIMES A DAY, Disp: , Rfl: OBJECTIVE BP 134/78 (Cuff Size: Large) Pulse 92 Temp 36.8 ??C (Temporal) Ht 176 cm Wt (!) 148 kg SpO2 96% BMI 47.74 kg/m?? PHYSICAL EXAM 100% of this visit today is counseling plan of care. His blood sugars are reviewed and Education is completed. Navx-eg-admn time with patient was 30 minutes with additional time in documentation requirements. ASSESSMENT / PLAN #1 Diabetes Mellitus Type 2 Hyperglycemia (HCC) Patient does not wanted increase medications to a 1000 mg daily. We talked about b.i.d. dosing versus 2 tabs daily and how that would affect his blood sugars. His blood sugars have been consistently above goal and he has good renal function. He would like to stick at 500 mg daily and so we talked about the pros and cons of that. Because of his other lifestyle changes we will stick with 500 mg daily and recheck him back in 3 months with pre visit labs. - Hemoglobin A1c; Future; Expected date: 08/11/2021 (Before next visit) - Basic Metabolic Panel; Future; Expected date: 08/11/2021 #2 Morbid Obesity Body Mass Index >= 35 with Comorbid Condition (HCC) He has had significant weight loss and seems very motivated. We talked about regular diet and makingsure he eats breakfast. He is a good plan in place. He has follow-up with the dietitian scheduled. #3 Hypertension And Chronic Kidney Disease Stage 2 His blood pressure is well controlled. He has some drop in GFR but his GFR still in the healthy range to use the metformin. Lab work will be recheck prior to our next visit. Other orders - metFORMIN XR (GLUCOPHAGE-XR) 500 mg 24 hr tablet; Take 1 tablet (500 mg total) by mouth daily withbreakfast., Starting 05/14/2021, Until 05/14/2022, Normal - Family Medicine office visit (clinic); Future; Expected date: 08/11/2021 TING ESTIMATOR documented in this encounter Plan of Treatment Upcoming Encounters Date Type Specialty Care Team Description 02/11/2022 Appointment Laboratory Medicine Neli Hearn M.D. [address] [place] [phone] (Stephon caldera) 02/14/2022 Office Visit Family Medicine Lilli Hearn M.D. [address] [place] [phone] (Stephon caldera) Scheduled Referrals Name Type Priority Associated Diagnoses [facility] Outpatient Referral Routine Expec deidre: office visit 08/11/2021 (clinic) (Approximate), Expires: 08/11/2022 documented as of this encounter Results (ABNORMAL) Basic Metabolic Panel [...] CDT eGFR-Black/Afric 85 >=60 08/09/2021 NPRG an Spanish mL/min/BSA 12:44 PM CDT Comment: ----ADDITIONAL INFORMATION---- [...] Organization Address City/State/ZIP Code Phon e Number [facility]- [address] [place], [place] [address] [place] [address] [place] [address] (ABNORMAL) Hemoglobin A1c (08/09/2021 8:32 AM CDT) [...] Organization Address City/State/ZIP Code Phon e Number [facility]- [address] [place], [place] [address] [place] [address] [place] [address] documented in this encounter Visit Diagnoses Diagnosis Diabetes Mellitus Type 2 Hyperglycemia ( HCC) - Primary Morbid Obesity Body Mass Index >= 35 wit h Comorbid Condition (HCC) Hypertension And Chronic Kidney Disease Stage 2 documented in this encounter Additional Health Concerns Assessment Noted Time PHQ-9 Depression Total Score: 4 04/16/2019 10:58 AM CS T documented as of this encounter Care Teams Senior Billing Consultant Relationship Specialty Start Date End Date Yolanda Colón APRN, C.N.P. PCP - General 09/08/16 documented as of this encounter
--- OUTSIDE RECORDS SUMMARY | 2021-12-28 09:56 | XMS_ITS | Encounter Summary ---
:1945 Author Organization [facility] Address [address] [place] [address] Care Team Providers Name Role Phone Yolanda Colón APRN, C.N.P. Primary Care Provider Reason for Referral Specialty Diagnoses / Procedures Referred By Contact Refer red To Contact Yolanda Colón APRN, C.N.P. [facility] [address] [place] [phone] Referral ID Status Reason Start Date Expiration Date Visits Requ ested Visits Authorized Encounter Details Date Type Department Care Team Description 08/10/2021 Orders Only [facility] PCP [facility] Yolanda Colón APRN, C.N.P. 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 [address] [place] [address] (Wo rk) 02/14/2022 Office Visit Family Medicine Lilli Hearn M.D. [address] [place] [phone] (Wo rk) Scheduled Referrals Name Type Priority Associated Order Schedule Diagnoses Covid immunization Outpatient Referral Routine Ex pected: office visit Booster 022 (Approximate), Expires: 08/10/2022 documented as of this encounter Visit Diagnoses Not on filedocumented in this encounter Additional Health Concerns Assessment Noted Time PHQ-9 Depression Total Score: 4 04/16/2019 10:58 AM CS T documented as of this encounter Care Teams Professional Engineer Relationship Specialty Start Date End Date Yolanda Colón APRN, C.N.P. PCP - General 09/08/16 documented as of this encounter
--- OUTSIDE RECORDS SUMMARY | 2021-12-28 09:56 | XMS_ITS | Encounter Summary ---
:1945 Author Organization [facility] Address [address] [place] [address] Care Team Providers Name Role Phone Yolanda Colón APRN, C.N.P. Primary Care Provider [phone] Encounter Details Date Type Department Care Team Description 04/22/2021 Orders Only Department of Family Yolanda Colón, Medicine in [facility] AMBER, C. N.P. [place] [address] [facility] [address] [place] [phone] (Wo rk) Social History Tobacco Use Types [...] or relatives? How often do you attend presybeterian or 1 to 4 times per year 11/2019 jewish services? 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 [address] [place] [phone] (Wo rk) 02/14/2022 Office Visit Family Medicine Lilli Hearn M.D. [address] [place] [phone] (Wo rk) documented as of this encounter Visit Diagnoses Not on filedocumented in this encounter Additional Health Concerns Infection Onset Date Last Indicated Resolved Time COVID19 Pending 04/20/2021 04/20/2021 04/22/2021 8:28 AM CONSULTING SERVICES MANAGER COVID19 04/20/2021 04/20/2021 05/10/2021 5:11 AM CONSULTING SERVICES MANAGER Assessment Noted Time PHQ-9 Depression Total Score: 4 04/16/2019 10:58 AM CS T documented as of this encounter Care Teams Photographic Plate Maker Relationship Specialty Start Date End Date Yolanda Colón APRN, C.N.P. PCP - General 09/08/16 documented as of this encounter
--- OUTSIDE RECORDS SUMMARY | 2021-12-28 09:56 | XMS_ITS | Encounter Summary ---
:1945 Author Organization [facility] Address [address] [place] [address] Care Team Providers Name Role Phone Yolanda Colón APRN, C.N.P. Primary Care Provider [phone] Encounter Details Date Type Department Care Team Description 04/22/2021 Clinical Communication Department of Yolanda Craven APRN, C.N.PJohnna Villalobos a [address] [place] [phone] Social History Tobacco Use Types Packs/Day Years [...] or relatives? How often do you attend baptist or 1 to 4 times per year 11/2019 synagogue services? 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 - 04/22/2021 10:56 AM LEAD APPLICATION ARCHITECT Patient notified and verbalizes understanding. APPLICATION ARCHITECT Telephone Encounter - Yolanda Colón APRN, LindaN.P. - 04/22/2021 10:31 AM LEAD APPLICATION ARCHITECT Please notify patient that his COVID test came back positive, His results were sent to me last nightand I am just seeing these this morning. Symptomatic treatment for his Sore throat is advised with ibuprofen, increased fluids, lozenges, gargles. Unfortunately, antibiotics will not helpful his sx. Ifhe should develop any shortness of breath, chest tightness or pain with COVID he should go directly to the ED. APPLICATION ARCHITECT Telephone Encounter - Katy Molina L.P.N. - 04/22/2021 10:08 AM LEAD APPLICATION ARCHITECT Please advise. APPLICATION ARCHITECT Telephone Encounter - Jennifer Baxter - 04/22/2021 8:55 AM CST The patient would like a call back [facility] at [phone]. He says the medication Yolanda Colón prescribed for him for his sore throat isn't working, and he is desperate to try something else to help with his sore throat, which has worsened. Thank you. APPLICATION ARCHITECT documented in this encounter Plan of Treatment Upcoming Encounters Date Type Specialty Care Team Description 02/11/2022 Appointment Laboratory Medicine Neli Hearn M.D. [address] [facility] [place] [phone] (Wo rk) 02/14/2022 Office Visit Family Medicine Lilli Hearn M.D. [address] [facility] [place] [phone] (Wo rk) documented as of this encounter Visit Diagnoses Not on filedocumented in this encounter Additional Health Concerns Infection Onset Date Last Indicated Resolved Time COVID19 Pending 04/20/2021 04/20/2021 04/22/2021 8:28 AM LEAD APPLICATION ARCHITECT COVID19 04/20/2021 04/20/2021 05/10/2021 5:11 AM LEAD APPLICATION ARCHITECT Assessment Noted Time PHQ-9 Depression Total Score: 4 04/16/2019 10:58 AM CS T documented as of this encounter Care Teams Clinical Trial Data Manager Relationship Specialty Start Date End Date Yolanda Colón APRN, C.N.P. PCP - General 09/08/16 documented as of this encounter
--- OUTSIDE RECORDS SUMMARY | 2021-12-28 09:56 | XMS_ITS | Encounter Summary ---
:1945 Author Organization [facility] Address [address] [place] [address] Care Team Providers Name Role Phone Yolanda Colón APRN, C.N.P. Primary Care Provider [phone] Reason for Visit Reason Comments Follow-up Vertigo/ no better if not wo rse Appointment Request (Routine) - Closed Specialty Diagnoses / Procedures Referred By Contact Refer red To Contact Family Medicine Referral ID Status Reason Start Date Expiration Date Visits Requ ested Visits Authorized [id number] Closed 08/25/2021 08/25/2022 1 1 Encounter Details Date Type Department Care Team Description 08/25/2021 Office Visit Department of Family Lilli Hearn V ertigo (Primary Dx) Medicine in [facility] [address] [facility] [address] [place] [phone] Social History Tobacco Use Types Packs/Day Years [...] 1 to 4 times per year 11/2019 spiritism services? 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 - 08/25/2021 3:30 PM CDT SUBJECTIVE CHIEF COMPLAINT / REASON FOR VISIT Cristi Macdonald is a 75 y.o. male who presents for evaluation of Follow-up (Vertigo/ no better if not worse). HISTORY OF PRESENT ILLNESS Patient is here today for follow-up of vertigo. He has had vertiginous symptoms the last day or so. He was seen in the emergency room yesterday and had extensive workup and was diagnosed with vertigo. He has fairly classic wrote ago where he has spinning when he rolls over in bed or if he lays back inbed too quickly. Sometimes he will have nausea related to the spinning. Cardiac workup was negative in the ER as well as lab work. He also had scanning completed as well. They did give him some Ativan in the ER which helped significantly with his spinning that was active at the time he was evaluated. He also was given some Benadryl. The Benadryl made him too sleepy and so he did not want to take thatat home and so he was given Dramamine that does not seem to be helping at all. He has no tinnitus orURI symptoms. He has no fevers or chills. ER records are not visible at this time but have been requested. He does have his discharge summary available for review. He has no new symptoms and no other concerns today. No chest pain or palpitations. No real lightheadedness. No vomiting. No diarrhea. No fevers or chills. No focal numbness tingling or weakness. No hearing loss. He does have intermittent Eleft ear plugging which is been an issue for him and he was noted to have fluid in his ear yesterday. The following portions of the patient's history [...] Hypertension And Chronic Kidney Disease Stage 2 ??? Morbid Obesity Body Mass Index 45.0-49.9 Adult (HCC) ??? Anxiety Current Outpatient Medications: ??? amLODIPine (NORVASC) 5 mg tablet, Take 1 tablet (5 mg total) by mouth daily., Disp: 90 tablet, Rfl: 3 ??? aspirin [address] tablet, Take 81 mg by mouth., Disp: , Rfl: ??? buPROPion XL (WELLBUTRIN XL) 300 mg 24 hr tablet, Take 1 tablet (300 mg total) by mouth every morning., Disp: 90 tablet, Rfl: 3 ??? furosemide (LASIX) 20 mg tablet, Take [...] 2 TIMES A DAY, Disp: , Rfl: ??? meclizine (ANTIVERT) 25 mg tablet, Take 1 tablet (25 mg total) by mouth 3 (three) times a day asneeded for dizziness., Disp: 30 tablet, Rfl: 0 OBJECTIVE BP 134/76 Comment: average of 3 B.P's Pulse 84 Temp 37.7 ??C (Temporal) Ht 176 cm Wt (!) 151kg SpO2 96% BMI 48.76 kg/m?? PHYSICAL EXAM General: Patient is in no apparent distress and is alert and oriented. Mood and affect are bright and engaging. Patient is very pleasant and is articulate and obviously educated. He is a good historian. HEENT: TMs are clear. Nares are clear. Posterior pharynx clear. Teeth in good repair. No scleral icterus is noted. Pupils equal, round, react to light. Neck: Supple without lymphadenopathy, JVD, carotid bruits or thyromegaly. Lungs: Clear to auscultation bilaterally. Heart: Regular rate and rhythm without murmur. Neurologically he is grossly intact. He has normal cranial nerves 2-12. He is using a cane but is independent in his ambulation. He has normal balance. He has normal coordination. ASSESSMENT / PLAN #1 Vertigo I switched him to meclizine [...] improving. He is agreeable to that plan. Other orders - meclizine (ANTIVERT) 25 mg tablet; Take 1 tablet (25 mg total) by mouth 3 (three) times a day as needed for dizziness., Starting 08/25/2021, Normal documented in this encounter Plan of Treatment Upcoming Encounters Date Type Specialty Care Team Description 02/11/2022 Appointment Laboratory Medicine Neli Hearn M.D. [address] [place] [phone] (Wo verenice) 02/14/2022 Office Visit Family Medicine Lilli Hearn M.D. [address] [place] [address] (Wo verenice) documented as of this encounter Visit Diagnoses Diagnosis Vertigo - Primary documented in this encounter Additional Health Concerns Assessment Noted Time PHQ-9 Depression Total Score: 4 04/16/2019 10:58 AM CS T documented as of this encounter Care Teams Universal Grinder Tool Relationship Specialty Start Date End Date Yolanda Colón APRN, C.N.P. PCP - General 09/08/16 documented as of this encounter
--- OUTSIDE RECORDS SUMMARY | 2021-12-28 09:56 | XMS_ITS | Encounter Summary ---
:1945 Author Organization [facility] Address [address] [place] [address] Care Team Providers Name Role Phone Yolanda Colón APRN, C.N.P. Primary Care Provider [phone] Encounter Details Date Type Department Care Team Description 04/23/2021 Clinical Communication Department of Yolanda Craven APRN, C.N.PJohnna Villalobos a [address] [place] [phone] Social History Tobacco Use Types Packs/Day Years [...] or relatives? How often do you attend christian or 1 to 4 times per year 11/2019 taoist services? 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 - 04/23/2021 4:20 PM CST Patient was seen by Adelina Colón on 04/20/2021. He tested positive for COVID. He was prescribed Prednisone x 5 days. Last couple days he has been coughing up big blood clots. Patient does use humidifier in the home. Use CPAP with humidified air. When he wakes up in the morning, it is hard for him to catch his breath. Otherwise he is doing well. Due to his above symptoms, recommend patient to be seen in urgent care. He is not on a blood thinner. Patient agreed with above plan. He had no further questions. EL TESTER Telephone Encounter - Jennifer Baxter - 04/23/2021 3:40 PM CST The patient has been coughing up bloody mucus. He would like to talk with Adelina Colón or a nurse about this. He refused to be transferred to the ROSIE line. He would like a call back [facility] at [phone]. Thank you. EL TESTER documented in this encounter Plan of Treatment Upcoming Encounters Date Type Specialty Care Team Description 02/11/2022 Appointment Laboratory Medicine Neli Hearn M.D. [address] [place] [facility] [phone] (Stephon caldera) 02/14/2022 Office Visit Family Medicine Lilli Hearn M.D. [address] [place] [facility] [phone] (Stephon caldera) documented as of this encounter Visit Diagnoses Not on filedocumented in this encounter Additional Health Concerns Infection Onset Date Last Indicated Resolved Time COVID19 04/20/2021 04/20/2021 05/10/2021 5:11 AM BARREL TESTER Assessment Noted Time PHQ-9 Depression Total Score: 4 04/16/2019 10:58 AM CS T documented as of this encounter Care Teams Community Artist Relationship Specialty Start Date End Date Yolanda Colón APRN, C.N.P. PCP - General 09/08/16 documented as of this encounter
--- OUTSIDE RECORDS SUMMARY | 2021-12-28 09:56 | XMS_ITS | Encounter Summary ---
:1945 Author Organization [facility] Address [address] [place] [address] Care Team Providers Name Role Phone Yolanda Colón APRN C.N.PFamilia Primary Care Provider [phone] Reason for Referral Outpatient (Routine) - Authorized Specialty Diagnoses / Procedures Referred By Contact Refer red To Contact Family Medicine Lilli Hearn M .D. [address] [address] Referral ID Status Reason Start Date Expiration Date Visits V isits Requested Authorized [id number] Authorized 08/11/2021 08/11/2022 1 1 Reason for Visit Reason Comments Diabetes States no concerns Outpatient (Routine) - Closed Specialty Diagnoses / Procedures Referred By Contact Refer red To Contact Family Lilli Mathias M .D. [address] [address] Referral ID Status Reason Start Date Expiration Date Visits Requ ested Visits Authorized [id number] Closed 05/14/2021 05/14/2022 1 1 Encounter Details Date Type Department Care Team Description 08/11/2021 Office Visit Department of Lilli Hearn Me llitus Type 2 With Diabetic Chronic Kidney Disease Hyperglycemic (HCC) (Primary Dx); Family Medicine ame Kaplan M.D. Morbid Obesity Body Mass Index >= 35 wit h Comorbid Condition (HCC); [place], [address] Morbid Obesity Body Mass Index 45.0-49.9 Adult (HCC); [facility] MD Hypertension And Chronic Kid lemuel Disease Stage 2; [address] [place] [address] Hypercholesterolemia [place], [place] [phone] (Work) [phone] Social History Tobacco Use Types Packs/Day Years [...] or relatives? How often do you attend shinto or 1 to 4 times per year 11/2019 anglican services? 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 - 08/11/2021 8:30 AM CDT SUBJECTIVE CHIEF COMPLAINT / REASON FOR VISIT Cristi Macdonald is a 75 y.o. male who presents for evaluation of Diabetes (States no concerns). HISTORY OF PRESENT ILLNESS Patient comes in today for follow-up. His last A1c was quite high so we started him on metformin despite his reluctance. He really does not feel that he have diabetes. He he has historically manage hisdiabetes with diet and exercises and he was reluctant to use the medication but did agree to trying it. He has been tolerating 500 mg extended release without difficulties. His blood sugars have been much lower. He is feeling well without any complaints or concerns. He did meet with a dietitian but did not feel that her diet recommendations were helpful and he felt that he gained weight while he was eating per her directions. He is very active in the summer. He has been spending a lot of time outside in his garden. The following portions of the patient's history were reviewed and updated as appropriate: allergies,current medications, medical history, social history and problem list. Patient has a very strong family history of type 2 diabetes PROBLEM LIST: Patient Active Problem List Diagnosis [...] A DAY, Disp: , Rfl: OBJECTIVE BP 132/72 Pulse 82 Temp 36.8 ??C Resp 20 Ht 176 cm Wt (!) 149 kg SpO2 97% BMI 48.24 kg/m?? PHYSICAL EXAM 100% of this visit today is counseling and plan of care. Total time [id number] with patient was over 30 minutes. 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 His A1c is much improved on a low-dose of metformin. I did advise him that I would like to increase the dose but he would like to wait on that and recheck lab work in 6 months to determine whether not that is necessary. I did advise him that he can back off on checking his blood sugars daily. #2 Morbid Obesity Body Mass Index >= 35 with Comorbid Condition (HCC) Diet and exercise was discussed #3 Morbid Obesity Body Mass Index 45.0-49.9 Adult (HCC) See above His blood pressure is well controlled so I refilled his Norvasc His anxiety is well controlled so I did refill his Wellbutrin as well. Pravastatin is already been filled. Lab work will be done in 6 months. Orders placed. Other orders - Family Medicine office visit (clinic) - amLODIPine (NORVASC) 5 mg tablet; Take 1 tablet (5 mg total) by mouth daily., Starting Mon08/11/2021, Until Chelsie 08/11/2022, Normal - buPROPion XL (WELLBUTRIN XL) 300 mg 24 hr tablet; Take 1 tablet (300 mg total) by mouth every morning., Starting Mon08/11/2021, Until Chelsie 08/11/2022, Normal documented in this encounter Plan of Treatment Upcoming Encounters Date Type Specialty Care Team Description 02/11/2022 Appointment Laboratory Medicine Neli Hearn M.D. [address] [place] [phone] (Stephon caldera) 02/14/2022 Office Visit Family Medicine Lilli Hearn M.D. [address] [place] [address] (Stephon caldera) Scheduled Orders Name Type Priority Associated Diagnoses Order S chedule Hemoglobin A1c Lab Routine Diabetes Mellitus Type 2 E xpected: 02/11/2022 With Diabetic Chronic (Appro ximate), Kidney Disease Expires: 07/25 Hyperglycemic (H CC) Morbid Obesity Body Mass Index >= 35 with Comorbid Condition (HCC) Morbid Obesity Body Mass Index 45.0-49.9 Adult (HCC) Hypertension And Chronic Kidney Disease S tage 2 Hypercholesterolemia CBC without Differential Lab Routine Diabetes Mellitu s Type 2 Expected: 02/11/2022 With Diabetic Chronic (Appro ximate), Kidney Disease Expires: 07/25 Hyperglycemic (H CC) Morbid Obesity Body Mass Index >= 35 with Comorbid Condition (HCC) Morbid Obesity Body Mass Index 45.0-49.9 Adult (HCC) Hypertension And Chronic Kidney Disease S tage 2 Hypercholesterolemia Comprehensive Metabolic Lab Routine Diabetes Mellitus Type 2 Expected: 02/11/2022 Panel With Diabetic Chronic (Appro ximate), Kidney Disease Expires: 07/25 Hyperglycemic (H CC) Morbid Obesity Body Mass Index >= 35 with Comorbid Condition (HCC) Morbid Obesity Body Mass Index 45.0-49.9 Adult (HCC) Hypertension And Chronic Kidney Disease S tage 2 Hypercholesterolemia Lipid Panel Lab Routine Diabetes Mellitus Type 2 Exp ected: 02/11/2022 With Diabetic Chronic (Appro ximate), Kidney Disease Expires: 10/25 Hyperglycemic (H CC) Morbid Obesity Body Mass Index >= 35 with Comorbid Condition (HCC) Morbid Obesity Body Mass Index 45.0-49.9 Adult (HCC) Hypertension And Chronic Kidney Disease S tage 2 Hypercholesterolemia Scheduled Referrals Name Type Priority Associated Diagnoses Order S [facility] Family Medicine Outpatient Referral Routine Expec deidre: office visit 02/11/2022 (clinic) (Approximate), Expires: 11/11/2022 documented as of this encounter Visit Diagnoses Diagnosis Diabetes Mellitus Type 2 With Diabetic C hronic Kidney Disease Hyperglycemic (HCC) - Primary Morbid Obesity Body Mass Index >= 35 wit h Comorbid Condition (HCC) Morbid Obesity Body Mass Index 45.0-49.9 Adult (HCC) Hypertension And Chronic Kidney Disease Stage 2 Hypercholesterolemia documented in this encounter Additional Health Concerns Assessment Noted Time PHQ-9 Depression Total Score: 4 04/16/2019 10:58 AM CS T documented as of this encounter Care Teams Interior Assemblies Installer Relationship Specialty Start Date End Date Yolanda Colón APRN, C.N.P. PCP - General 09/08/16 documented as of this encounter
--- OUTSIDE RECORDS SUMMARY | 2021-12-28 09:56 | XMS_ITS | Encounter Summary ---
:1945 Author Organization [facility] Address [address] [place] [address] Care Team Providers Name Role Phone Yolanda Colón APRN, C.N.P. Primary Care Provider [phone] Encounter Details Date Type Department Care Team Description 09/15/2021 Clinical Communication [facility] Cordell Hearn, Medicine in [facility], [address], [place] [address] [facility] [address] [place], [place] [phone] (Wo rk) [address] [phone] Social History Tobacco Use Types Packs/Day Years [...] or relatives? How often do you attend religious or 1 to 4 times per year 11/2019 oriental orthodox services? 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 - 09/15/2021 2:09 PM CDT Order faxed to [facility] (formerly [facility]) for MRI Brain per patient request seated open sided MRI. According to Ray this specific MR is only at [facility] location. Patient stated that he is not interested in driving to [facility]. Patient is wanting to try regular MRI in [place]. Patient states he feels he will be able to lay flat without moving for the MRI. helpdesk analyst notified and will connect with patient to schedule. He may need to have MRI in [place] due to weight. documented in this encounter Plan of Treatment Upcoming Encounters Date Type Specialty Care Team Description 02/11/2022 Appointment Laboratory Medicine Neli Hearn M.D. [address] [place] [phone] (Wo rk) 02/14/2022 Office Visit Family Medicine Lilli Hearn M.D. [address] [place] [address] (Wo rk) documented as of this encounter Visit Diagnoses Not on filedocumented in this encounter Additional Health Concerns Assessment Noted Time PHQ-9 Depression Total Score: 4 04/16/2019 10:58 AM CS T documented as of this encounter Care Teams Electrical Lineworker Relationship Specialty Start Date End Date Yolanda Colón APRN, C.N.P. PCP - General 09/08/16 documented as of this encounter
--- OUTSIDE RECORDS SUMMARY | 2021-12-28 09:56 | XMS_ITS | Encounter Summary ---
:1945 Author Organization [facility] Address [address] [place] [address] Care Team Providers Name Role Phone Yolanda Colón APRN C.N.P. Primary Care Provider [phone] Reason for Referral Outpatient (Routine) - Closed Specialty Diagnoses / Procedures Referred By Contact Refer red To Contact Nutrition Diagnoses Diabetes Mellitus Type 2 Hyperglycemia (HCC) Lilli Hearn M.D. [address] [address] Referral ID Status Reason Start Date Expiration Date Visits Requ ested Visits Authorized [id number] Closed 05/07/2021 05/07/2022 1 1 ARCH PROGRAM ASSISTANT Reason for Visit Reason Comments Follow-up Outpatient (Routine) - Closed Specialty Diagnoses / Procedures Referred By Contact Refer red To Contact Family Medicine Lilli Hearn M .D. [address] [address] Referral ID Status Reason Start Date Expiration Date Visits Requ ested Visits Authorized [id number] Closed 05/05/2021 05/05/2022 1 1 Encounter Details Date Type Department Care Team Description 05/07/2021 Office Visit Department of Lilli Hearn Me llitus Type 2 Hyperglycemia (HCC) (Primary Dx); Family Medicine ame Kaplan M.D. Sinusitis Acute; [address] Morbid Obesity Body Mass Index >= 35 wit h Comorbid Condition (HCC); [place], [place] Hypertension And Chronic Kid lemuel Disease Stage 2; [address] [place] [address] Hypercholesterolemia [place], [place] [phone] (Work) [phone] Social History Tobacco Use Types Packs/Day Years [...] or relatives? How often do you attend pentecostal or 1 to 4 times per year 11/2019 yarsani services? 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 documented as of this encounter Last Filed Vital Signs Vital Sign Reading Time Taken Comments Blood Pressure 141/81 05/07/2021 9:31 AM RESEARCH PROGRAM ASSISTANT Pulse 88 05/07/2021 9:24 AM RESEARCH PROGRAM ASSISTANT Temperature 37.4 ??C (99.3 ??F) 05/07/2021 9:24 AM RESEARCH PROGRAM ASSISTANT Respiratory Rate - - Oxygen Saturation 97% 05/07/2021 9:24 AM RESEARCH PROGRAM ASSISTANT Inhaled Oxygen Concentration - - Weight 152 kg (335 lb) 05/07/2021 9:24 AM RESEARCH PROGRAM ASSISTANT Height 176 cm (5' 9.29) 05/07/2021 9:24 AM RESEARCH PROGRAM ASSISTANT Body Mass Index 49.06 05/07/2021 9:24 AM RESEARCH PROGRAM ASSISTANT documented in this encounter Progress Notes Lilli Hearn M.D. - 05/07/2021 9:30 AM CST SUBJECTIVE CHIEF COMPLAINT / REASON FOR VISIT Cristi Macdonald is a 75 y.o. male who presents for evaluation of Follow-up. HISTORY OF PRESENT ILLNESS Patient is here today for follow-up. He is feeling about 10% better. He is now having more runny nose that is clear and his sputum is changed from green ovalle to clear as well. He is having less of a cough and generally feeling more energetic. No nausea vomiting or diarrhea. He has had high blood sugars in the past. But he has never been told his diabetes. 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 He does have some sleep apnea and uses a CPAP machine. He is a nonsmoker and does not use alcohol daily. His diet has been poor lately and he has gained about 30 lb since he retired 3 years ago. The following portions of the patient's history [...] DAILY., Disp: 90 capsule, Rfl: 3 ??? metFORMIN XR (GLUCOPHAGE-XR) 500 mg 24 hr tablet, Take 1 tablet (500 mg total) by mouth daily with breakfast., Disp: 30 tablet, Rfl: 0 OBJECTIVE BP 141/81 (Cuff Size: Large) Pulse 88 Temp 37.4 ??C (Temporal) Ht 176 cm Wt (!) 152 kg SpO2 97% BMI 49.06 kg/m?? PHYSICAL EXAM Patient is not re-examined. Total time today was in counseling and plan of care and Education about diabetes. Total time [id number] was just over 25 minutes with an additional 10 minutes done in research and documentation requirements. Patient needs DME for his diabetes and we had to contact the pharmacy to determine best next steps and coverage. Lab Results Component Value Date HGBA1C 11.1 (H) 05/05/2021 HGBA1C 6.8 (H) 01/09/2018 HGBA1C 6.2 (H) 08/15/2017 Lab Results Component Value Date GLUCOSE 303 (H) 05/05/2021 LDLCALC 115 04/16/2019 CREATININE 0.95 05/05/2021 ASSESSMENT / PLAN #1 Diabetes Mellitus Type 2 Hyperglycemia (HCC) Patient has significantly elevated A1c. His last A1c was completed 3 years ago and was below 7. Partly his A1c is elevated because of diet and weight gain recently as well as aging. All have him meet with a dietitian to help with better food choices. Will start him on metformin 500 mg daily as his GFRis 79. He is already on a statin. He needs better blood pressure control but I opted not to changes medications today as he is already nervous and concerned about the medication for the diabetes. But he will need upward advancement of his medications for blood pressure control. Aspirin daily is recommended. He is on ARB already. I will see him back in 2 weeks with blood pressure check and to review blood sugars. - Nutrition - Diabetes dietitian medical nutrition therapy consult (clinic); Future; Expected date: 05/07/2021 - DME Miscellaneous (Free Text Entry) (Non-Medicare Covered): glucose monitor, strips and lancets #2 Sinusitis Acute improving #3 Morbid Obesity Body Mass Index >= 35 with Comorbid Condition (HCC) Noted, see orders. 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 [address] [place] [facility] [phone] (Stephon caldera) 02/14/2022 Office Visit Family Medicine Lilli Hearn M.D. [address] [place] [facility] [phone] (Stephon caldera) Scheduled Referrals Name Type Priority Associated Diagnoses Order S chedule Nutrition - Outpatient Referral Routine Diabetes Mellitus Typ e Expected: Diabetes dietitian 2 Hyperglycemia (HCC) 05/07/2021 medical nutrition (Approxima te), therapy consult Expires: (clinic) 08/04/2022 documented as of this encounter Visit Diagnoses Diagnosis Diabetes Mellitus Type 2 Hyperglycemia ( HCC) - Primary Sinusitis Acute Morbid Obesity Body Mass Index >= 35 wit h Comorbid Condition (HCC) Hypertension And Chronic Kidney Disease Stage 2 Hypercholesterolemia documented in this encounter Additional Health Concerns Infection Onset Date Last Indicated Resolved Time COVID19 04/20/2021 04/20/2021 05/10/2021 5:11 AM RESEARCH PROGRAM ASSISTANT Assessment Noted Time PHQ-9 Depression Total Score: 4 04/16/2019 10:58 AM CS T documented as of this encounter Care Teams Emergency Management Program Specialist Relationship Specialty Start Date End Date Yolanda Colón APRN, C.N.P. PCP - General 09/08/16 documented as of this encounter
--- OUTSIDE RECORDS SUMMARY | 2021-12-28 09:56 | XMS_ITS | Encounter Summary ---
:1945 Author Organization [facility] Address [address] [place] [address] Care Team Providers Name Role Phone Yolanda Colón APRN, C.N.P. Primary Care Provider [phone] Reason for Visit Reason Comments Dizziness Nausea Tinnitus Encounter Details Date Type Department Care Team Description 08/24/2021 Nurse Triage Department of Crista Montoya; Nausea; Medicine in A, R.N. Tinnitus (/) [facility] [address] [facility] [address] [place] [phone] Social History Tobacco Use Types Packs/Day Years [...] or relatives? How often do you attend orthodox or 1 to 4 times per year 11/2019 episcopalian services? 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 - 08/24/2021 8:07 AM CDT Chief Complaint / Reason for Call Patient is a 75 y.o. male calling regarding Dizziness, Nausea, and Tinnitus (/). Assessment Concern: Feels like he's on a boat/motion sick. Worse when he turns over in bed. Feels quite a bit of fatigue, generalized weakness, and can fall asleep while sitting up very easily. Reports tinnitus. Present for: 2-3 days Home cares tried: None Calling to request: Appointment The recommended disposition is Go to ED Now (or PCP Triage). Care Advice Patient/Caregiver understands and will follow care advice?: Yes, able to teach back GO TO ED NOW * Another adult should drive. Reason for Disposition ??? [1] Dizziness (vertigo) present now AND [2] one or more STROKE RISK FACTORS (i.e., hypertension,diabetes, prior stroke/TIA, heart attack) (Exception: prior physician evaluation for this AND no different/worse than usual) Protocols used: DIZZINESS - [id number] documented in this encounter Plan of Treatment Upcoming Encounters Date Type Specialty Care Team Description 02/11/2022 Appointment Laboratory Medicine Neli Hearn M.D. [address] [place] [phone] (Stephon caldera) 02/14/2022 Office Visit Family Medicine Lilli Hearn M.D. [address] [place] [phone] (Stephon caldera) documented as of this encounter Visit Diagnoses Not on filedocumented in this encounter Additional Health Concerns Assessment Noted Time PHQ-9 Depression Total Score: 4 04/16/2019 10:58 AM CS T documented as of this encounter Care Teams Underground Bolting Machine Operator Relationship Specialty Start Date End Date Yolanda Colón APRN, C.N.P. PCP - General 09/08/16 documented as of this encounter
--- OUTSIDE RECORDS SUMMARY | 2021-12-28 09:56 | XMS_ITS | Encounter Summary ---
:1945 Author Organization [facility] Address [address] [place] [address] Care Team Providers Name Role Phone Yolanda Colón APRN, C.N.P. Primary Care Provider Reason for Visit Reason Comments Sore Throat Encounter Details Date Type Department Care Team Description 04/29/2021 Nurse Triage Department of [facility] Saranya Subramanian R.N. Sore Throat Medicine in [place], [address] [place] [address] [address] [place] [address] [phone] Social History Tobacco Use Types Packs/Day Years [...] or relatives? How often do you attend evangelical or 1 to 4 times per year 11/2019 zoroastrian services? 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 male calling regarding Sore Throat. Assessment Concern: Patient states that he has COVID and has had a sore throat for over a week. He has had intermittent episodes of feeling like his throat is closing, denies this morning. Rates throat pain as a 5-6/10. Present for: 9 days Home cares tried: Ibuprofen, throat lozenges, warmed fluids Calling to request: appointment The recommended disposition is See a health care provider within 3 days. Patient was warm transferred to [facility] at the clinic for further assistance. Reason for Disposition ? ? [1] Sore throat with cough/cold symptoms AND [2] present > 5 days Protocols used: SORE [id number] Care Advice Patient/Caregiver understands and will follow care advice?: Yes, able to teach back SORE THROAT: * Here are some simple things you can do to treat and reduce sore throat pain. * Sip warm chicken broth or apple juice. * Suck on hard candy or an cfih-gnn-gvdnukq throat lozenge. * Gargle with warm salt water four times a day. To make salt water, put 1/2 teaspoon of salt in 8 oz(240 ml) of warm water. * Avoid cigarette smoke. PAIN AND FEVER MEDICINES: * For pain or fever relief, take either acetaminophen or ibuprofen. * They are jvto-ova-bfxfssx (OTC) drugs that help treat both fever and pain. [facility]. * Treat fevers above 101 F (38.3 C). The goal of fever therapy is to bring the fever down to a comfortable level. Remember that fever medicine usually lowers fever 2 degrees F (1 - 1 1/2 degrees C). * ACETAMINOPHEN REGULAR STRENGTH TYLENOL: Take 650 mg (two 325 mg pills) by mouth every 4-6 hours asneeded. Each Regular Strength Tylenol pill has 325 mg of acetaminophen. The most you should take each day is 3,250 mg (10 pills a day). * ACETAMINOPHEN - EXTRA STRENGTH TYLENOL: Take 1,000 mg (two 500 mg pills) every 8 hours as needed. Each Extra Strength Tylenol pill has 500 mg of acetaminophen. The most you should take each day is 3,000 mg (6 pills a day). * IBUPROFEN (E.G., MOTRIN, ADVIL): Take 400 mg (two 200 mg pills) by mouth every 6 hours. The most you should take each day is 1,200 mg (six 200 mg pills), unless your doctor has told you to take more. SOFT DIET: * Eat a soft diet. * Cold drinks, popsicles, and milk shakes are especially good. Avoid citrus fruits. DRINK PLENTY LIQUIDS: * Drink plenty of liquids. This is important to prevent dehydration. * A healthy adult should drink 8 cups (240 ml) or more of liquid each day. * How can you tell if you are drinking enough liquids? The goal is to keep the urine clear or light-yellow in color. If your urine is bright yellow or dark yellow, you are probably not drinking enough liquids. * Caution: Some medical problems require fluid restriction. CALL BACK IF: * You become worse. MAN documented in this encounter Plan of Treatment Upcoming Encounters Date Type Specialty Care Team Description 02/11/2022 Appointment Laboratory Medicine Neli Hearn M.D. [address] [place] [phone] (Stephon caldera) 02/14/2022 Office Visit Family Medicine Lilli Hearn M.D. [address] [place] [phone] (Stephon caldera) documented as of this encounter Visit Diagnoses Not on filedocumented in this encounter Additional Health Concerns Infection Onset Date Last Indicated Resolved Time COVID19 04/20/2021 04/20/2021 05/10/2021 5:11 AM BANKMAN Assessment Noted Time PHQ-9 Depression Total Score: 4 04/16/2019 10:58 AM CS T documented as of this encounter Care Teams Data Entry Machine Operator Relationship Specialty Start Date End Date Yolanda Colón APRN, C.N.P. PCP - General 09/08/16 documented as of this encounter
--- OUTSIDE RECORDS SUMMARY | 2021-12-28 09:56 | XMS_ITS | Encounter Summary ---
:1945 Author Organization [facility] Address [address] [place] [address] Care Team Providers Name Role Phone Yolanda Colón APRN, C.N.P. Primary Care Provider [phone] Reason for Referral MRI/CAT/PET Scan (Routine) - Closed Specialty Diagnoses / Procedures Referred By Contact Refer red To Contact Radiology Diagnoses Vertigo Lilli Hearn M.D. [facility] Region Procedures MR Brain without IV Contrast [place] MRI BRAIN WO CNTRST [facility] MRI BRAIN WO CNTRST [address] [place], [place] [phone] Referral ID Status Reason Start Date Expiration Date Visits Requ ested Visits Authorized [id number] Closed 09/15/2021 09/15/2022 1 1 hysical Therapy (Routine) - Authorized Specialty Diagnoses / Procedures Referred By Contact Refer red To Contact Physical Therapy Diagnoses Vertigo Lilli Hearn M.D. [address] [place] [address] Referral ID Status Reason Start Expiration Visits Visits Date Date Requested Authorized [id number] Authorized Patient 09/15/2021 09/15/2022 99 99 Preference Reason for Visit Reason Comments Vertigo Encounter Details Date Type Department Care Team Description 09/15/2021 Office Visit Department of Family Lilli Hearn V ertigo (Primary Dx) Medicine in [place] [address] [facility] [address] [place], [place] [phone] [phone] Social History Tobacco Use Types Packs/Day Years [...] or relatives? How often do you attend mu-ism or 1 to 4 times per year 11/2019 hoahaoism services? 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 - 09/15/2021 8:00 AM CDT SUBJECTIVE CHIEF COMPLAINT / REASON FOR VISIT Cristi Macdonald is a 75 y.o. male who presents for evaluation of Vertigo. HISTORY OF PRESENT ILLNESS Patient is back with complaints of recurrent vertigo. He had previously been seen in the emergency room for vertigo and had extensive workup. He had very good luck with the Antivert that I gave him to help resolve his symptoms. His symptoms completely resolved and he was feeling well and it stopped the medication after about 7 days. However he has redeveloped symptoms. For the last several days he has been having a lot of spinning when he goes into the garden. When he bends over the guarded due workand then stands up he gets spinning and he has been developing some nausea because of the motion sickness. In the morning the spinning is much worse. When he gets out of bed in the morning almost aboutnoon he has be really careful if he moves his head at all. After about noon he starts to improve until he lays down again at night. No tinnitus or hearing loss. No chest pain or palpitations. He had skipped a CT scan done in the emergency room that was normal. He has no other focal neurologic complaints. No vomiting. He describes the condition as the room spinning around him which improves when he sits still and hold his head still. Answers for HPI/ROS submitted by the patient on 09/15/2021 No general issues: Yes No eye issues: Yes No ENT issues: Yes No heart issues: Yes No respiratory issues: Yes No GI issues: Yes No muscle/bone issues: Yes No skin issues: Yes Light-headedness: Yes No mental health issues: Yes No blood/lymph issues: Yes No urinary/reproductive issues: Yes The following portions of the patient's history [...] DAILY., Disp: 90 tablet, Rfl: 3 ??? meclizine (ANTIVERT) 25 mg tablet, Take 1 tablet (25 mg total) by mouth 3 (three) times a day asneeded for dizziness., Disp: 90 tablet, Rfl: 3 ??? metFORMIN XR (GLUCOPHAGE-XR) 500 mg 24 hr tablet, Take 1 tablet (500 mg total) by mouth daily with breakfast., Disp: 90 tablet, Rfl: 3 ??? MULTIVITAMIN WITH MINERALS ORAL, Take 1 tablet by mouth daily., Disp: , Rfl: ??? omega-3 fatty acids 500 mg capsule, [...] TIMES A DAY, Disp: , Rfl: ??? naproxen (NAPROSYN) 500 mg tablet, STATES HE ONLY TAKES IT IF HIS BACK HURTS. STATES HE TAKES THIS ABOUT 3-4 TIMES PER WEEK, Disp: 90 tablet, Rfl: 1 OBJECTIVE BP 138/87 (BP Location: Left arm, Patient Position: Sitting, Cuff Size: Large) Pulse 79 Resp 16 Ht 176 cm SpO2 96% BMI 48.76 kg/m?? PHYSICAL EXAM General: Patient is in no apparent distress and is alert and oriented. Mood and affect are bright and engaging. Patient is very pleasant and is articulate and obviously educated. HEENT: TMs are clear. Nares are clear. No scleral icterus is noted. Pupils equal, round, react to light. Neck: Supple without lymphadenopathy, JVD, carotid bruits or thyromegaly. Lungs: Clear to auscultation bilaterally. Heart: Regular rate and rhythm without murmur. Neurologically cranial nerves 2-12 are intact. His gait is symmetric. His speech is normal. His recall is normal. He moves all extremities symmetrically. He has no nystagmus ASSESSMENT / PLAN #1 Vertigo At this point will proceed with physical therapy and a refill of the Antivert. He would like to go outside of [facility] for physical therapy if possible and so I did provide an order for him to go [facility] which is where he would like to go. We did discuss further imaging with MRI but he declines any MRI imaging at this time because he cannot lay in an MRI for the imaging and he does not want to drive or kidney to some place that can do an open-sided MRI or a seated MRI. Will reconsider that as an option if he does not improve with the therapy as noted above. He is agreeable that plan. - External referral PT (non-[place]) - MR Brain without IV Contrast; Future; Expected date: 09/15/2021 Other orders - meclizine (ANTIVERT) 25 mg tablet; Take 1 tablet (25 mg total) by mouth 3 (three) times a day as needed for dizziness., Starting 09/15/2021, Until Chelsie 09/15/2022 at 2359, Normal documented in this encounter Plan of Treatment Upcoming Encounters Date Type Specialty Care Team Description 02/11/2022 Appointment Laboratory Medicine Neli Hearn M.D. [address] [facility] [place] [address] (Wo rk) 02/14/2022 Office Visit Family Medicine Lilli Hearn M.D. [address] 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 No acute intracranial process is noted. Narrative 09/17/2021 2:40 PM CDT EXAM: MR BRAIN WITHOUT IV CONTRAST COMPARISON:None FINDINGS: The ventricles are normal in s ize and contour. There is no shift of the midline or extra-axial collection noted. Minimal ch ronic ischemic white matter changes are noted. No diffusion restriction is seen. Procedure Note Mumtaz Rosa M.D. - 09/17/2021Forma tting of this note might be different from the original. EXAM: MR BRAIN WITHOUT IV CONTRAST COMPARISON:None FINDINGS: The ventricles are normal in s ize and contour. There is no shift of the midline or extra-axial collection noted. Minimal ch ronic ischemic white matter changes are noted. No diffusion restriction is seen. IMPRESSION: Minimal chronic ischemic white matter di sease. No acute intracranial process is noted. Lilli Hearn M.D. IMG MRI PROCEDURES documented in this encounter Visit Diagnoses Diagnosis Vertigo - Primary Vertigo documented in this encounter Additional Health Concerns Assessment Noted Time PHQ-9 Depression Total Score: 4 04/16/2019 10:58 AM SYMONE Melgoza documented as of this encounter Care Teams Commercial Lawn Specialist Relationship Specialty Start Date End Date Yolanda Colón APRN, C.N.P. PCP - General 09/08/16 documented as of this encounter
--- OUTSIDE RECORDS SUMMARY | 2021-12-28 09:56 | XMS_ITS | Encounter Summary ---
:1945 Author Organization [facility] Address [address] [place] [address] Care Team Providers Name Role Phone Yolanda Colón APRN, C.N.P. Primary Care Provider [phone] Reason for Visit MRI/CAT/PET Scan (Routine) - Closed Specialty Diagnoses / Procedures Referred By Contact Refer red To Contact Radiology Diagnoses Vertigo Lilli Hearn M.D. [facility] Region Procedures MR Brain without IV Contrast [place] MRI BRAIN WO CNTRST HC MRI BRAIN WO CNTRST [address] [place], [place] [phone] Referral ID Status Reason Start Date Expiration Date Visits Requ ested Visits Authorized [id number] Closed 09/15/2021 09/15/2022 1 1 Encounter Details Date Type Department Care Team Description 09/17/2021 Ancillary Procedure Department of Lilli Hearn [facility] [address] [place], [place] [address] [facility] [address] [address] [address] [place] [address] [phone] Social History Tobacco Use Types Packs/Day Years [...] 1 to 4 times per year 11/2019 jainism services? Do you belong to any clubs or No 12/04/2019 organizations such as mu-ism groups, unions, [employer] or athletic groups, or school groups? 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 [address] [place] [phone] (Wo rk) 02/14/2022 Office Visit Family Medicine Lilli Hearn M.D. [address] [place] [phone] (Wo rk) documented as of this encounter Procedures Procedure Name Priority Date/Time Associated Comments Diagnosis MR BRAIN WITHOUT RAD - Routine 09/17/2021 1:28 Vertigo Results for this IV CONTRAST (most inpatients PM CDT procedure a re in and all the results outpatients) section. documented in this encounter Results MR Brain without IV [...] intracranial process is noted. Lilli Hearn M.D. IMMagdiel MRI PROCEDURES documented in this encounter Visit Diagnoses Diagnosis Vertigo documented in this encounter Additional Health Concerns Assessment Noted Time PHQ-9 Depression Total Score: 4 04/16/2019 10:58 AM CS T documented as of this encounter Care Teams High School Football Coach Relationship Specialty Start Date End Date Yolanda Colón APRN, C.N.P. PCP - General 09/08/16 documented as of this encounter
--- OUTSIDE RECORDS SUMMARY | 2021-12-28 09:56 | XMS_ITS | Encounter Summary ---
:1945 Author Organization [facility] Address [address] [place] [id number] Care Team Providers Name Role Phone Yolanda Colón APRN, C.N.P. Primary Care Provider [phone] Reason for Visit Reason Comments Results [facility] Encounter Details Date Type Department Care Team Description 04/22/2021 Clinical Communication Division of [facility] [place] ([facility]) Internal MedicineLacho M.D. [facility], in [address] [place] [address] [place] [phone] [place], [place] [phone] (Work) [phone] Social History Tobacco Use Types Packs/Day Years [...] or relatives? How often do you attend druze or 1 to 4 times per year 11/2019 zoroastrianism services? 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 - 04/22/2021 8:08 PM CST [facility] TELE[facility]UNICATION [facility] REGARDING COVID-19 Phlebotomy Manager: None History of Present Illness Mr. Macdonald is a 75 y.o. who tested positive for COVID-19. They do NOT describe any symptoms of severe COVID-19, including no shortness of breath at rest, no shortness of breath that limits walking short distances, no chest pain (such as retrosternal or left sided chest pain, pain that radiates to the jaw or arm), no dizziness or lightheadedness that makes them unsteady or unable to stand or walk, and no new or increasing oxygen requirements. Day 0: 04/17/21, the date of symptom onset ? No. Immunocompromised? No. MASS Score: Monoclonal Antibody Screening Score (MASS) Total Points Current as of 4 hours ago 4 0 - 3 Points: Low Risk 4 - 6 Points: Medium Risk >= 7 Points: High Risk No Change Details This score is used to evaluate patient risk of complications with COVID-19 infection Points Metrics 2 Age: 75 Current as of 4 hours ago 0 Has Chronic Respiratory Disease: No Current as of 4 hours ago 0 Has Diabetes: No Current as of 4 hours ago 0 Patient is Immune Compromised/Transplant Patient: No Current as of 4 hours ago 1 BMI: BMI >/= 35 Dx on Problem List Current as of 4 hours ago 0 Has CVD: No Current as of 4 hours ago 0 Has Renal Disease (CKD 4 or 5, ESRD w/ Dialysis): No Current as of 4 hours ago 1 Has Hypertension: Yes Current as of 4 hours ago 0 : No Current as of 4 hours ago ASSESSMENT and PLAN #1 COVID-19 Infection #2 COVID-19 Symptom Assessment Mr. Macdonald describes mild to moderate symptoms. PLAN: advised to contact primary care provider with questions and recommended continuing with home cares. #3 COVID-19 Remote Monitoring Mr. Macdonald has a qualifying monoclonal antibody screening score (MASS), but is not eligible for remote patient monitoring due to nearing the end of the recommended monitoring period. RPM Monitoring Duration: Patient is not immunocompromised and will be monitored for a minimum of 5 days from day 0. #4 COVID-19 Treatments All patients are considered for monoclonal antibody infusion. The patient was informed that if determined eligible, they will be contacted by the monoclonal antibody infusion team. #5 COVID-19 Isolation Beginning of isolation (day 0) is outlined in the History of Present Illness. Effective 03/22/21, the CDC now recommends a minimum 5 day isolation for the general population who tests positive for COVID-19 and who are asymptomatic or their symptoms are resolving (without a feverfor 24 hours), followed by 5 days of wearing a mask when around others to minimize the risk of infecting people they encounter. If immune compromised, an individual should isolate for a minimum of 10 days. An individual must, at a minimum, follow the isolation and quarantine requirements outlined by [facility]. All isolation periods are for a minimum number of days, and patients must still meet criteria of being fever free and having improving symptoms for 24hour prior to ending home isolation. The patient may end home isolation when they meet the following criteria: ??? They have met the minimum days of the recommended isolation period (day 0 is days from symptom onset OR date of positive test if they never had symptoms) ??? They have been afebrile at least 24 hours without the use of fever reducing medications ??? Their symptoms are improving Response to Education: patient/caller able to teach back Caller agreeable to plan of care: yes The following references were used: Nursing judgement and [facility] workflow Lacho Sorto M.D. [place] COVID Care Team [facility] COVID-19 GENERAL INFORMATION If patient develops mild symptoms they can be managed at home with rest, fluids, acetaminophen, and non-steroidal anti-inflammatory medications as needed. Mild symptoms may include fever, chills, cough, fatigue, myalgias, sore throat, runny nose, headache, mild shortness of breath or mild chest pain. Symptom Monitoring and Escalating Care The patient or caregiver was advised to contact their primary care provider if moderate symptoms areworsening and to call 911 or present to the nearest emergency department if symptoms are severe. The patient or caregiver was advised to monitor for the following symptoms: ??? Shortness of breath, trouble breathing, rapid breathing ??? Chest pain ??? Dehydration ??? Lethargy/sleepiness or altered mental status ??? Dizziness ??? Depression/Anxiety/PTSD ??? Vomiting ??? Diarrhea ??? Fever (100.4 F or greater) ??? Generalized Rash (pediatrics) ??? Red eyes/lips (pediatrics) Additional guidance for infants under 12 months: In infant < 2 months, Fever >= 100.4F (send to ED) Infant 2-12 months, Fever >=101 (notify provider) Hypothermia (notify provider or send to ED) Inconsolable (notify provider or send to ED) Apnea (notify provider or send to ED) Dehydration </= 3 wet diapers in 24 hours (notify provider or send to ED) Isolation and Quarantine Recommendations On 03/22/21 [facility] updated isolation and quarantine guidance. https://www.cdc.gov/media/releases/2020/n1092-wtdvqrkwu-jlztsrtfvp-elyllvyi.html [facility] is reviewing CDC recommendations and will update [facility]'s policies and recommendations in the near future. Current [facility] recommendations: Any household member who is not fully vaccinated, should be tested 3-5 days after their last close contact. They need to quarantine for 5 days after last close contact and continue to wear a mask for 5days after their quarantine is completed. Please call the [facility] COVID Triage Line at [phone] to schedule these appointments. Any household family members who have been fully vaccinated, should be tested 3- 5 days after exposure and wear a mask in public indoor settings for 5 days after exposure. They do not need to quarantineas long as the COVID-19 exposure was at least 14 days after their vaccination series was fully completed and they do not have any symptoms of COVID-19. If they develop symptoms, they need to quarantine and be tested for COVID-19. Please call the [facility] COVID Triage Line at [phone] to schedule these appointments. ??? If the patient is a child or adolescent: the patient will need to self- isolate in their own roomas much as possible. ??? If the patient is a younger child or infant with COVID-19 negative caregivers: one caregiver should become the designated caregiver and isolate from other family members as much as possible. If this caregiver continues negative/unknown/asymptomatic, they will need to continue quarantine for 14 days following last day of contact with positive child. ??? Avoid sharing personal household items ??? Clean and disinfect 'high-touch' surfaces daily ??? Wear a facemask when around other people and cover coughs/sneezes ??? Practice good hand hygiene ??? Avoid touching your eyes, nose, and mouth ??? If possible, use separate bathroom from COVID-negative family members. Retesting is NOT recommended by the CDC and Infectious Disease experts. In the majority of cases, itresults in prolonged isolation of patients who continue to shed detectable SARS-CoV-2 RNA but are nolonger infectious. Testing will not be ordered unless required for procedure/surgery/appointment at the discretion of the provider recommending the visit. Those providers will order retesting when required. If the household members/close contacts become unwell, recommend calling the [facility] COVID Triage Line at [phone]. If symptoms are severe, report to local ED. Return to Work or School For patients 18 years and older, we have provided a general work/school excuse letter that the patient may share with a school or employer as documentation of the positive test result and initial isolation recommendations at the bottom of their initial letter. If further documentation is required, thepatient is advised to reach out to their PCP or subspecialists. For pediatric patients or their caregivers, if a school excuse/general work excuse letter is needed it is recommended that they reach out to their PCP or subspecialists. The patient will follow up with their primary care provider for evaluation and return to work assessment if they continue to have symptoms that interfere with work or school or if they do not meet criteria to end home isolation. Additional Information for Reference Vaccination Guidance Patient may receive any dose of a COVID-19 vaccine once they end home isolation if they did not receive MAB. If they receive MAB infusion, they should wait 90 days before receiving any dose of a COVID-19 vaccine. As we enter flu season, it is also important to make sure that your patient and other family membersreceive their influenza (flu) vaccine as well. They may receive the flu vaccine at any time after completing their isolation period, including those who received the MAb infusion. [facility] will be offeringinfluenza vaccination appointments this fall, but they can also go to community sites for this important vaccination. Upcoming Appointments If any clinic appointments are scheduled in the next 20 days, the patient should contact their care teams for guidance on whether these appointments should be rescheduled. COVID Infection Flag The COVID infection flag in the [facility] Chart will 20 days from the date of the Sars-CoV-2 PCR. Patients with ongoing symptoms beyond 20 days should remain in isolation and follow up with their care teams regarding the need to reschedule any appointments. If a provider assesses the patient and determines that they may end home isolation prior to the 20 days, the provider may resolve the COVID infection flag, at which time the patient may return to [facility] for on site appointments. [email or web address]-answers/[email or web address] 55739 SARS-CoV-2 RNA by PCR Date Value Ref Range Status 04/20/2021 Detected (A) Undetected Final Comment: SARS-CoV-2 RNA present. ----ADDITIONAL INFORMATION---- This RT-PCR test using the carolyne SARS-CoV-2 assay ([employer] performed on the carolyne 6800/8800 System has received Emergency Use Authorization (EUA) by the U.S. Food and Drug Administration, and is modified from the family helper's instructions with a bridging study. Performance characteristics were verified by [facility] in a manner consistent with CLIA requirements. Fact sheets for this Emergency Use Authorization (EUA) assay can be found at the following links: For Healthcare Providers: https://www.fda.gov/media/509052/download For Patients: https://www.fda.gov/media/995668/download RAM MANUFACTURING LEADER documented in this encounter Plan of Treatment Upcoming Encounters Date Type Specialty Care Team Description 02/11/2022 Appointment Laboratory Medicine Neli Hearn M.D. [address] [place] [phone] (Wo rk) 02/14/2022 Office Visit Family Medicine Lilli Hearn M.D. 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 PCP - General 09/08/16 documented as of this encounter
--- OUTSIDE RECORDS SUMMARY | 2021-12-28 09:56 | XMS_ITS | Encounter Summary ---
:1945 Author Organization [facility] Address [address] [place] [address] Care Team Providers Name Role Phone Yolanda Colón APRN, C.N.P. Primary Care Provider [phone] Reason for Visit Reason Comments Med Refill Encounter Details Date Type Department Care Team Description 09/13/2021 Refill Department of Family Medicine Yolanda Colón APRN, Med Refill in [facility] lela C.N.P. [address] [place], [place] [phone] [place] [phone] (Wo rk) Social History Tobacco Use Types [...] 1 to 4 times per year 11/2019 restorationist services? 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 [facility] 08/11/21 Office Visit Lilli Hearn M.D. [facility] 05/14/21 Office Visit Lilli Hearn M.D. [facility] 05/07/21 Office Visit Lilli Hearn M.D. [facility] 05/05/21 Office Visit Lilli Hearn M.D. [facility] 04/20/21 Office Visit Yolanda Colón APRN, C.N.P. [facility] 12/01/20 Office Visit Yolanda Colón APRN, C.N.P. [facility] Showing recent visits within past 365 days with a meds authorizing provider and meeting all other requirements Today's Visits Date Type Provider Dept 09/15/21 Office Visit Lilli Hearn M.D. [facility] Showing today's visits with a meds authorizing provider and meeting all other requirements Future Appointments No visits were found meeting these conditions. Showing future appointments within next 90 days with a meds authorizing provider and meeting all other requirements documented in this encounter Plan of Treatment Upcoming Encounters Date Type Specialty Care Team Description 02/11/2022 Appointment Laboratory Medicine Neli Hearn M.D. [address] [place] [phone] (Wo rk) 02/14/2022 Office Visit Family Medicine Lilli Hearn M.D. [address] [place] [phone] (Wo rk) documented as of this encounter Visit Diagnoses Not on filedocumented in this encounter Additional Health Concerns Assessment Noted Time PHQ-9 Depression Total Score: 4 04/16/2019 10:58 AM CS T documented as of this encounter Care Teams Music Autographer Relationship Specialty Start Date End Date Yolanda Colón APRN, C.N.P. PCP - General 09/08/16 documented as of this encounter
--- OUTSIDE RECORDS SUMMARY | 2021-12-28 09:56 | XMS_ITS | Encounter Summary ---
:1945 Author Organization [facility] Address [address] [place] [address] Care Team Providers Name Role Phone Yolanda Colón APRN, C.N.P. 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 - 05/07/2021 3:38 PM DISTRIBUTION MANAGER Pt notified and all questions answered RIBUTION MANAGER Telephone Encounter - Jennfier Baxter - 05/07/2021 2:49 PM CST The patient called to ask if nurse Aleja can call him at [phone]. He has questions about how to do something, and said that Aleja would understand what he was referring to. Thank you. RIBUTION MANAGER documented in this encounter Plan of Treatment Upcoming Encounters Date Type Specialty Care Team Description 02/11/2022 Appointment Laboratory Medicine Neli Hearn M.D. [address] [place] [phone] (Wo rk) 02/14/2022 Office Visit Family Medicine Lilli Hearn M.D. [address] [place] [phone] (Wo rk) documented as of this encounter Visit Diagnoses Not on filedocumented in this encounter Additional Health Concerns Infection Onset Date Last Indicated Resolved Time COVID19 04/20/2021 04/20/2021 05/10/2021 5:11 AM DISTRIBUTION MANAGER Assessment Noted Time PHQ-9 Depression Total Score: 4 04/16/2019 10:58 AM CS T documented as of this encounter Care Teams Barrel Endshake Adjuster Relationship Specialty Start Date End Date Yolanda Colón, UI UX ENGINEER, C.N.P. PCP - General 09/08/16 documented as of this encounter
--- OUTSIDE RECORDS SUMMARY | 2021-12-28 09:56 | XMS_ITS | Encounter Summary ---
:1945 Author Organization [facility] Address [address] [place] [address] Care Team Providers Name Role Phone Yolanda Colón APRN C.N.P. Primary Care Provider [phone] Reason for Referral Outpatient (Routine) - Authorized Specialty Diagnoses / Procedures Referred By Contact Refer red To Contact Nutrition Lilli Hearn M .D. [address] [phone] Referral ID Status Reason Start Date Expiration Date Visits V isits Requested Authorized [id number] Authorized 05/13/2021 05/13/2022 1 1 DUSTER Reason for Visit Outpatient (Routine) - Closed Specialty Diagnoses / Procedures Referred By Contact Refer red To Contact Nutrition Diagnoses Diabetes Mellitus Type 2 Hyperglycemia (HCC) Lilli Hearn M.D. [address] [address] Referral ID Status Reason Start Date Expiration Date Visits Requ ested Visits Authorized [id number] Closed 05/07/2021 05/07/2022 1 1 Encounter Details Date Type Department Care Team Description 05/13/2021 Clinical Support Department of Lilli Hearn M.D. [address] [place] [phone] Diabetes Mellitus Type 2 Hyperglycemia ( HCC); Nutrition in Crystal Henson M, RDN, LD [address] [place] [phone] Morbid Obesity Body Mass Index >= 35 wit h Comorbid Condition (HCC) [place], [place] [address] [place] [phone] Social History Tobacco Use Types Packs/Day Years [...] or relatives? How often do you attend protestant or 1 to 4 times per year 11/2019 roman catholic services? 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 3 balanced meals/day; use plate method for meal planning 2. Piece of whole grain toast with breakfast in the am; protein with lunch; okay to starch/grain with dinner - be mindful of portions 3. Incorporate extra steps throughout the day. DUSTER documented in this encounter Progress Notes Crystal Henson, RDN, LD - 05/13/2021 1:30 PM CST REASON FOR VISIT Diabetes Mellitus Type 2, Adult morbid obesity BMI 40 or above Medhat presents for nutrition education for blood glucose management and weight loss. Referring provider: Lilli Hearn M.D. Total Time: 60 minutes, 60 minutes spent in counseling and coordination of care. Medicare MNT benefit used 1 hour of 2 hours NUTRITION ASSESSMENT Nutrition History: Patient reports about 1 month ago, he has started to diet, which included no longer having potatoes, pasta or bread and being mindful of portions. Explains that he does no eat fried food and he has cut out candy as well. Patient reports that most recently he had covid and had a sorethroat (infection) which had lasted for 3 weeks. Reports that he was drinking a lot of juice - appleand white grape juice which he feels has contributed to increase in blood gluocose values. Breakfast: eggs and avocado, Lunch: vegetables - snap peas, Dinner: typically a protein of some sort, white/lean meat with vegetables Snacks: denies snacking, will have banana in the evening after dinner Weight History: Wt Readings from Last 6 Encounters: 05/07/21 (!) 152 kg 05/05/21 (!) 154 kg 04/23/21 (!) 154 kg 04/20/21 (!) 153 kg 12/11/20 (!) 152 kg 12/01/20 (!) 150 kg Pt reports weight loss of 12 lbs. Due to decreased intake when he had covid Medical/Surgical History: DEVORA, GERD, Hypertension with CKD stage 2, hypercholesterolemia Social: patient lives at home with ; has a garden and freezes vegetables to consume throughout the cold weather months. Physical activity: due to back pain physical activity is limited; during the summer months patient is active in the garden, struggles getting regular physical activity during the cold weather months. Labs: Lab Results Component Value Date HGBA1C 11.1 (H) 05/05/2021 Patient has been testing blood glucose values, reports fasting values in the low 200s, 224 or 251. ANTHROPOMETRICS Wt Readings from Last 1 Encounters: 05/07/21 (!) 152 kg Ht Readings from Last 1 Encounters: 05/07/21 176 cm BMI Readings from Last 1 Encounters: 05/07/21 49.06 kg/m?? Estimated Needs 2328-7086 calories/day ([place] 75% of basal to basal) NUTRITION DIAGNOSIS Food and nutrition-related knowledge deficit (NB-1.1) related to lack of prior nutrition education as evidenced by patient presents for nutrition education for type 2 diabetes and weight loss. INTERVENTION Recommendations to referring provider: See AVS for details Discussed macronutrient content of food and the role of calories in the diet. Explained how meal timing and carbohydrate intake will affect blood glucose. Covered 15g portion sizes of carbohydrates. Explained the role of calories in weight management and how reading food labels for calories can help support weight loss. Helped identify foods that may be contributing excess caloric intake in the patients current diet. Discussed the plate method as a tool in making balanced meals. Talked about how to achieve satiety while reducing overall calorie/carbohydrate intake. Discussed what moderation would mean for the patient and the importance of slow gradual change to avoid overeating driven by deprivation. Discussed hunger and satiety and the importance of honoring hunger while trying to lose weight and assessing reasons for eating. NUTRITION RELATED GOALS See AVS for details. MONITORING AND EVALUATION Recommended follow up in 1 month to evaluate the patient's current nutrition status and education needs. Provided contact information and encouraged the patient to call or portal message with questions. DUSTER documented in this encounter Plan of Treatment Upcoming Encounters Date Type Specialty Care Team Description 02/11/2022 Appointment Laboratory Medicine Neli Hearn M.D. [address] [place] [phone] (Stephon caldera) 02/14/2022 Office Visit Family Medicine Lilli Hearn M.D. [address] [place] [phone] (Stephon caldera) Scheduled Referrals Name Type Priority Associated Diagnoses Order S chedule Nutrition office Outpatient Referral Routine Expe cted: visit (clinic) 06/10/2021 (Approximate), Expires: 08/10/2022 documented as of this encounter Visit Diagnoses Diagnosis Diabetes Mellitus Type 2 Hyperglycemia ( HCC) Morbid Obesity Body Mass Index >= 35 wit h Comorbid Condition (HCC) documented in this encounter Additional Health Concerns Assessment Noted Time PHQ-9 Depression Total Score: 4 04/16/2019 10:58 AM CS T documented as of this encounter Care Teams Billboard Poster Relationship Specialty Start Date End Date Yolanda Colón APRN, C.N.P. PCP - General 09/08/16 documented as of this encounter
--- OUTSIDE RECORDS SUMMARY | 2021-12-28 09:56 | XMS_ITS | Encounter Summary ---
:1945 Author Organization [facility] Address [address] [place] [address] Care Team Providers Name Role Phone Yolanda Colón APRN, C.N.P. Primary Care Provider [phone] Encounter Details Date Type Department Care Team Description 05/05/2021 Orders Only Department of Family Yolanda Colón, Medicine in [facility] AMBER, C. N.P. [place] [address] [facility] [address] [place] [phone] (Wo rk) Social History Tobacco Use Types [...] or relatives? How often do you attend taoist or 1 to 4 times per year 11/2019 advent services? 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 [address] [place] [phone] (Wo rk) 02/14/2022 Office Visit Family Medicine Lilli Hearn M.D. [address] [place] [phone] (Wo rk) documented as of this encounter Visit Diagnoses Not on filedocumented in this encounter Additional Health Concerns Infection Onset Date Last Indicated Resolved Time COVID19 04/20/2021 04/20/2021 05/10/2021 5:11 AM METALLURGICAL SPECIALIST Assessment Noted Time PHQ-9 Depression Total Score: 4 04/16/2019 10:58 AM CS T documented as of this encounter Care Teams Farm Mechanic Apprentice Relationship Specialty Start Date End Date Yolanda Colón APRN, C.N.P. PCP - General 09/08/16 documented as of this encounter
--- OUTSIDE RECORDS SUMMARY | 2021-12-28 09:57 | XMS_ITS | Encounter Summary ---
:1945 Author Organization [facility] Address [address] [place] [address] Care Team Providers Name Role Phone Yolanda Colón APRN, C.N.P. Primary Care Provider [phone] Encounter Details Date Type Department Care Team Description 01/05/2021 Orders Only Department of Family Yolanda Colón, Medicine in [facility] AMBER, C. N.P. [place] [address] [facility] [address] [place] [phone] (Wo rk) Social History Tobacco Use Types Packs/Day Years Used Date Smoking Tobacco: Former Smokeless Tobacco: Former Alcohol Use Standard Drinks/Week Comments Yes 0 (1 standard drink = 0.6 oz pure alcoho l) Alcohol Habits Answer Date Recorded How often do you have a drink containing alcohol? Monthly or less 12/04/2019 How many drinks containing alcohol do you have on a 1 or 2 12/04/2019 typical day when you are drinking? How often do you have six or more drinks on one Less than mo nthly 12/04/2019 occasion? Comment: Not asked Social Isolation Answer Date Recorded In a typical week, how many times do you More than three huy es a week 12/04/2019 talk on the phone with family, friends, or neighbors? How often do you get together with friends Once a week 12/04/2019 or relatives? How often do you attend anabaptist or 1 to 4 times per year 11/2019 nondenominational services? 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 [address] [place] [phone] (Wo rk) 02/14/2022 Office Visit Family Medicine Lilli Hearn M.D. [address] [place] [phone] (Wo rk) documented as of this encounter Visit Diagnoses Not on filedocumented in this encounter Additional Health Concerns Assessment Noted Time PHQ-9 Depression Total Score: 4 04/16/2019 10:58 AM CS T documented as of this encounter Care Teams Retail Worker Relationship Specialty Start Date End Date Yolanda Colón APRN, C.N.P. PCP - General 09/08/16 documented as of this encounter
--- OUTSIDE RECORDS SUMMARY | 2021-12-28 09:57 | XMS_ITS | Encounter Summary ---
:1945 Author Organization [facility] Address [address] [place] [address] Care Team Providers Name Role Phone Yolanda Colón APRN, C.N.P. Primary Care Provider [phone] Encounter Details Date Type Department Care Team Description 01/04/2021 Clinical Communication Department of Yolanda Craven APRN, C.N.PTerri Villalobos a [address] [place] [phone] Social History Tobacco Use Types Packs/Day Years [...] 1 to 4 times per year 11/2019 hinduism services? 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 - 01/05/2021 9:29 AM CDT Patient notified. Was able to repeat back instructions. He will call back 2-3 weeks with an update. Telephone Encounter - Yolanda Colón APRN, C.N.P. - 01/05/2021 9:19 AM CDT Please notify that new prescription metolazone 5 mg daily was prescribed for a diuretic. He can holdthe furosemide at this time. He should keep me posted in the next 2-3 weeks if he is noticing any improvement of his leg edema. I do recommend that he wrap his legs with Dragan wrap or compression stockings and elevate legs. Telephone Encounter - Tiana Ledbetter L.P.N. - 01/04/2021 2:54 PM CDT Adelina, Patient was wondering the update on a different water pill you were going to prescribe? Thanks. Telephone Encounter - Nicole Hunt - 01/04/2021 2:45 PM CDT Called asking for a different water pill prescription from Adelina. documented in this encounter Plan of Treatment Upcoming Encounters Date Type Specialty Care Team Description 02/11/2022 Appointment Laboratory Medicine Neli Hearn M.D. [address] [place] [facility] [place] [phone] (Wo rk) 02/14/2022 Office Visit Family Medicine Lilli Hearn M.D. [address] [place] [phone] (Wo rk) documented as of this encounter Visit Diagnoses Not on filedocumented in this encounter Additional Health Concerns Assessment Noted Time PHQ-9 Depression Total Score: 4 04/16/2019 10:58 AM CS T documented as of this encounter Care Teams Validation Engineer Relationship Specialty Start Date End Date Yolanda Colón APRN, C.N.P. PCP - General 09/08/16 documented as of this encounter
--- OUTSIDE RECORDS SUMMARY | 2021-12-28 09:57 | XMS_ITS | Encounter Summary ---
:1945 Author Organization [facility] Address [address] [place] [address] Care Team Providers Name Role Phone Yolanda Colón APRN, C.N.P. Primary Care Provider [phone] Reason for Referral Specialty Diagnoses / Procedures Referred By Contact Refer red To Contact Jessica Sandhu M.D. [facility] Region [address] [place] [phone] Referral ID Status Reason Start Date Expiration Date Visits Requ ested Visits Authorized Encounter Details Date Type Department Care Team Description 01/19/2021 Orders Only [facility] PCP TH Andrew Cornejo D.O. 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 [address] [place] [phone] (Wo rk) 02/14/2022 Office Visit Family Medicine Lilli Hearn M.D. [address] [place] [phone] (Wo rk) Scheduled Referrals Name Type Priority Associated Order Schedule Diagnoses Covid immunization Outpatient Referral Routine Ex pected: office visit Booster 021 (Approximate), Expires: 01/19/2022 documented as of this encounter Visit Diagnoses Not on filedocumented in this encounter Additional Health Concerns Assessment Noted Time PHQ-9 Depression Total Score: 4 04/16/2019 10:58 AM CS T documented as of this encounter Care Teams All Around Presser Relationship Specialty Start Date End Date Yolanda Colón APRN, C.N.P. PCP - General 09/08/16 documented as of this encounter
--- OUTSIDE RECORDS SUMMARY | 2021-12-28 09:57 | XMS_ITS | Encounter Summary ---
:1945 Author Organization [facility] Address [address] [place] [address] Care Team Providers Name Role Phone Yolanda Colón APRN, C.N.P. 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 - 01/12/2021 9:36 AM CDT spoke with Adelina yesterday at [place]. Gave instructions to cut the Furosemide dose in 03/28. Patient is now taking 10 mg twice daily. Was also started on a stool softener. Patient had no further questions. Telephone Encounter - Alpa Nelson R.N. - 01/11/2021 4:10 PM CDT Left message to call back Telephone Encounter - Brittany Farley - 01/11/2021 9:10 AM CDT Patient calling to nurse or Adelina for advice as he is having issues since being put on a new water pill; urinating not normal and now has severe constipation as well. Please give him a call this morning yet if possible. Thank you. documented in this encounter Plan of Treatment Upcoming Encounters Date Type Specialty Care Team Description 02/11/2022 Appointment Laboratory Medicine Neli Hearn M.D. [address] [facility] [place] [phone] (Stephon caldera) 02/14/2022 Office Visit Family Medicine Lilli Hearn M.D. [address] [facility] [place] [phone] (Stephon caldera) documented as of this encounter Visit Diagnoses Not on filedocumented in this encounter Additional Health Concerns Assessment Noted Time PHQ-9 Depression Total Score: 4 04/16/2019 10:58 AM CS T documented as of this encounter Care Teams Roller Bearing Inspector Relationship Specialty Start Date End Date Yolanda Colón APRN, C.N.P. PCP - General 09/08/16 documented as of this encounter
--- OUTSIDE RECORDS SUMMARY | 2021-12-28 09:57 | XMS_ITS | Encounter Summary ---
:1945 Author Organization [facility] Address [address] [place] [address] Care Team Providers Name Role Phone Yolanda Colón APRN, C.N.P. Primary Care Provider [phone] Reason for Visit Reason Comments Med Refill Encounter Details Date Type Department Care Team Description 02/14/2021 Refill Department of Family Medicine Yolanda Colón APRN, Med Refill in [facility] lela C.N.P. [address] [place], [place] [phone] [place] [phone] (Wo rk) Social History Tobacco Use Types [...] 1 to 4 times per year 11/2019 caodaism services? 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 [address] [place] [phone] (Wo rk) 02/14/2022 Office Visit Family Medicine Lilli Hearn M.D. [address] [place] [phone] (Wo rk) documented as of this encounter Visit Diagnoses Not on filedocumented in this encounter Additional Health Concerns Assessment Noted Time PHQ-9 Depression Total Score: 4 04/16/2019 10:58 AM CS T documented as of this encounter Care Teams Brewer Helper Relationship Specialty Start Date End Date Yolanda Colón APRN, C.N.P. PCP - General 09/08/16 documented as of this encounter
--- OUTSIDE RECORDS SUMMARY | 2021-12-28 09:57 | XMS_ITS | Encounter Summary ---
:1945 Author Organization [facility] Address [address] [place] [address] Care Team Providers Name Role Phone Yolanda Colón APRN, C.N.P. Primary Care Provider [phone] Reason for Visit Reason Comments Communication Encounter Details Date Type Department Care Team Description 01/22/2021 Clinical Communication Department of Yolanda Craven Medicine in AM[facility] Hart, C.N.PTerri Villalobos a [address] [place] [phone] Social History Tobacco Use Types Packs/Day Years [...] or relatives? How often do you attend zoroastrian or 1 to 4 times per year 11/2019 zoroastrianism services? 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 - 01/22/2021 2:22 PM CDT Pt wants you to know that the water pill is working but the MiraLAX is not. Is taking 3x week. He with increase it to 4-5 a week and follow up with you if needed. Telephone Encounter - Brittany Farley - 01/22/2021 1:37 PM CDT Patient would like a call back. Says the laxative that Adelina put him on is not working very well. Is there anything else someone can suggest to try. ?? Thank you. documented in this encounter Plan of Treatment Upcoming Encounters Date Type Specialty Care Team Description 02/11/2022 Appointment Laboratory Medicine Neli Hearn M.D. [address] [place] [phone] (Stephon caldera) 02/14/2022 Office Visit Family Medicine Lilli Hearn M.D. [address] [place] [phone] (Stephon caldera) documented as of this encounter Visit Diagnoses Not on filedocumented in this encounter Additional Health Concerns Assessment Noted Time PHQ-9 Depression Total Score: 4 04/16/2019 10:58 AM CS T documented as of this encounter Care Teams Rubber Off Relationship Specialty Start Date End Date Yolanda Colón, INSPECTOR AND CLERK, C.N.P. PCP - General 09/08/16 documented as of this encounter
--- OUTSIDE RECORDS SUMMARY | 2021-12-28 09:57 | XMS_ITS | Encounter Summary ---
:1945 Author Organization [facility] Address [address] [place] [address] Care Team Providers Name Role Phone Yolanda Colón APRN, C.N.P. Primary Care Provider [phone] Reason for Visit Reason Comments Med Refill Encounter Details Date Type Department Care Team Description 12/21/2020 Refill Department of Family Medicine Yolanda Colón APRN, Med Refill in [facility] lela C.N.P. [address] [place], [place] [phone] [place] [phone] (Wo rk) Social History Tobacco Use Types [...] 1 to 4 times per year 11/2019 muslim services? 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 - 12/21/2020 4:34 PM CDT Name of Medication(s) Needing Refill: Furosemide, pravastatin Additional Information: Lab Results Component Value Date CHOL 190 04/16/2019 Lab Results Component Value Date HDL 42 04/16/2019 Lab Results Component Value Date LDLCALC 115 04/16/2019 Lab Results Component Value Date TRIG 163 (H) 04/16/2019 Lab Results Component Value Date TTLCHOLHDLRT 6.3 (H) 02/28/2013 Due for lipid - please order. Last Appointment: Medicare visit 12/11/20. OV 12/01/20 with PCP. Future Appointment: None documented in this encounter Plan of Treatment Upcoming Encounters Date Type Specialty Care Team Description 02/11/2022 Appointment Laboratory Medicine Neli Hearn M.D. [address] [place] [phone] (Wo rk) 02/14/2022 Office Visit Family Medicine Lilli Hearn M.D. [address] [place] [phone] (Wo rk) documented as of this encounter Visit Diagnoses Not on filedocumented in this encounter Additional Health Concerns Assessment Noted Time PHQ-9 Depression Total Score: 4 04/16/2019 10:58 AM CS T documented as of this encounter Care Teams Specifications Writer Relationship Specialty Start Date End Date Yolanda Colón APRN, C.N.P. PCP - General 09/08/16 documented as of this encounter
--- OUTSIDE RECORDS SUMMARY | 2021-12-28 09:57 | XMS_ITS | Encounter Summary ---
:1945 Author Organization [facility] Address [address] [place] [address] Care Team Providers Name Role Phone Yolanda Colón APRN, C.N.P. Primary Care Provider [phone] Encounter Details Date Type Department Care Team Description 01/28/2021 Immunization Department of [facility] Lon Nicolas Nee d Vaccine Medicine in [place]. Immunization (Primary [facility] a [address]) [address] [place] [phone] Social History Tobacco Use Types Packs/Day Years [...] or relatives? How often do you attend mormonism or 1 to 4 times per year 11/2019 synagogue services? 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 [address] [place] [address] (Wo rk) 02/14/2022 Office Visit Family Medicine Lilli Hearn M.D. [address] [place] [address] (Wo rk) documented as of this encounter Visit Diagnoses Diagnosis Need Vaccine Immunization - Primary documented in this encounter Additional Health Concerns Assessment Noted Time PHQ-9 Depression Total Score: 4 04/16/2019 10:58 AM CS T documented as of this encounter Care Teams Spline Rolling Machine Job Setter Relationship Specialty Start Date End Date Yolanda Colón APRN, C.N.P. PCP - General 09/08/16 documented as of this encounter
--- OUTSIDE RECORDS SUMMARY | 2021-12-28 09:57 | XMS_ITS | Encounter Summary ---
:1945 Author Organization [facility] Address [address] [place] [address] Care Team Providers Name Role Phone Yolanda Colón APRN, C.N.P. Primary Care Provider [phone] Reason for Visit Outpatient (Routine) - Closed Specialty Diagnoses / Procedures Referred By Contact Refer red To Contact Diagnoses Morbid Obesity (HCC) Shortness Of Breath Abnormal Electrocardiogram Yolanda Colón, [facility] Region Procedures NM Cardiac Perfusion Rest and Stress SPECT AMBER, C.N.P. [address] [place] [address] Referral ID Status Reason Start Date Expiration Date Visits Requ ested Visits Authorized [id number] Closed 12/01/2020 12/01/2021 6 6 Encounter Details Date Type Department Care Team Description 12/29/2020 Hospital Encounter Department of Radiology Yolanda Colón, in [facility] AMBER, C.N.P. [address] [facility] [address] [place] [phone] (Wo rk) Social History Tobacco Use Types [...] 12/04/2019 organizations such as methodist groups, unions, [email or web address] or athletic groups, or school groups? 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 0 0 tablet GLUCOSAMINE/CHONDR Take 1 tablet by mouth 2 0 NOONAN A SOD (OSTEO (two) times a day. BI-FLEX ORAL) MULTIVITAMIN WITH Take 1 tablet by mouth 0 2014 MINERALS ORAL daily. omega-3 fatty acids Take 2 tablets by mouth 0 500 mg capsule daily. Capsules 1200 mg, take 2 caps daily omeprazole TAKE ONE (1) CAPSULE BY 90 capsule 3 01/07/2020 (PriLOSEC) [address] MOUTH DAILY capsule pravastatin TAKE 1 TABLET (80 MG 90 tablet 3 12/22/2020 (PRAVACHOL) 80 mg TOTAL) BY MOUTH AT tablet BEDTIME. amLODIPine TAKE 1 TABLET (5 MG TOTAL) 90 tablet 3 1 06/07/2021 (NORVASC) 5 mg BY MOUTH DAILY. tablet buPROPion XL TAKE 1 TABLET (300 MG 90 tablet 2 07/07/2020 0 04/12/2021 (WELLBUTRIN XL) 300 TOTAL) BY MOUTH EVERY mg 24 hr tablet MORNING. furosemide (LASIX) TAKE 1 TABLET BY MOUTH 30 tablet 11 12/2201/05/2021 40 mg tablet DAILY. STOP SPIRONOLACTONE & HYDROCHLOROTHIAZIDE losartan (COZAAR) TAKE 1 TABLET (100 MG 90 tablet 3 021 05/27/2021 100 mg tablet TOTAL) BY MOUTH DAILY. naproxen (NAPROSYN) States he only takes it if 90 tablet 2 05/12/2020 01/26/2021 500 mg tablet his back hurts. States he takes this about 3-4 times per week terazosin (HYTRIN) TAKE 1 CAPSULE (1 MG 90 capsule 3 021 05/27/2021 1 mg capsule TOTAL) BY MOUTH DAILY. documented as of this encounter Plan of Treatment Upcoming Encounters Date Type Specialty Care Team Description 02/11/2022 Appointment Laboratory Medicine Neli Hearn M.D. [address] [place] [address] (Wo rk) 02/14/2022 Office Visit Family Medicine Lilli Hearn M.D. [address] [place] [address] (Wo rk) documented as of this encounter Procedures Procedure Name Priority Date/Time Associated Diagnosis Comme nts NM CARDIAC RAD - Routine 12/29/2020 Morbid Obesity ( HCC) Results for PERFUSION REST (most inpatients 10:38 AM CDT Shortness Of Br eath this procedure AND STRESS SPECT and all Abnormal are in the outpatients) Electrocardiogram results section. documented in this encounter Visit Diagnoses Not on filedocumented in this encounter Administered Medications Inactive Administered Medications - up to 3 most recent administrations Medication Order MAR Action Action Date Dose Rate Site technetium Tc 99m sestamibi Given 12/29/2020 9:00 AM CDT 32 mill icuries injection (Tc-99m CARDIOLITE) 32 millicurie, intravenous, Once, On Mon12/29/20 at 0900, For 1 dose documented in this encounter Additional Health Concerns Assessment Noted Time PHQ-9 Depression Total Score: 4 04/16/2019 10:58 AM CS T documented as of this encounter Care Teams Operations Management Trainee Relationship Specialty Start Date End Date Yolanda Colón APRN, C.N.P. PCP - General 09/08/16 documented as of this encounter
--- OUTSIDE RECORDS SUMMARY | 2021-12-28 09:57 | XMS_ITS | Encounter Summary ---
:1945 Author Organization [facility] Address [address] [place] [address] Care Team Providers Name Role Phone Yolanda Colón APRN, C.N.P. Primary Care Provider [phone] Encounter Details Date Type Department Care Team Description 01/07/2021 Clinical Communication Department of Yolanda Craven APRN, C.N.PTerri Villalobos a [address] [place] [phone] Social History Tobacco Use Types Packs/Day Years [...] or relatives? How often do you attend scientologist or 1 to 4 times per year 11/2019 hoahaoism services? 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 - 01/07/2021 8:28 AM CDT Reviewed provider's recommendations from communication Jan 05 - reviewed medications on file. The Furosemide had been sent in to the pharmacy as well. Advised that per Zaina's recommendations heis to Hold this medication for the time-being while he trials the Metolazone. Advised to just hold on to the Furosemide at this time as it may be needed again in the future, but again advised not to take Both. Patient verbalized understanding and read back plan of care. Telephone Encounter - Jennifer Baxter - 01/07/2021 7:56 AM CDT The patient wants a call at [phone]. He says he's not sure if the right prescription was called in for him to [facility]. He says he was expecting one prescription, and there were two. Also, he remembers it was going to be5mg, which is what the one prescription was for, but he thinks maybe it isn't the same medication that he and Adelina had spoken about. He's just not sure and would feel better touching base with you about it. Thank you. documented in this encounter Plan of Treatment Upcoming Encounters Date Type Specialty Care Team Description 02/11/2022 Appointment Laboratory Medicine Neli Hearn M.D. [address] [place] [phone] (Wo rk) 02/14/2022 Office Visit Family Medicine Lilli Hearn M.D. [address] [place] [address] (Wo rk) documented as of this encounter Visit Diagnoses Not on filedocumented in this encounter Additional Health Concerns Assessment Noted Time PHQ-9 Depression Total Score: 4 04/16/2019 10:58 AM CS T documented as of this encounter Care Teams Banquet Pilot Relationship Specialty Start Date End Date Yolanda Colón APRN, C.N.P. PCP - General 09/08/16 documented as of this encounter
--- OUTSIDE RECORDS SUMMARY | 2021-12-28 09:57 | XMS_ITS | Encounter Summary ---
:1945 Author Organization [facility] Address [address] [place] [address] Care Team Providers Name Role Phone Yolanda Colón APRN, C.N.P. Primary Care Provider [phone] Reason for Visit Reason Comments Sore Throat 1 week Cough months Encounter Details Date Type Department Care Team Description 04/20/2021 Office Visit Department of Yolanda Craven Pha ryngitis Acute (Primary Dx); Medicine in MAMBER, C.N.P. Morbid Obesity Body Mass Index 45.0-49.9 Adult (HCC); Michael, [facility] a [address] Venous Insufficiency Chronic Peripheral [address] [place] [phone] Social History Tobacco Use Types Packs/Day Years [...] 1 to 4 times per year 11/2019 gnosticism services? 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 documented as of this encounter Last Filed Vital Signs Vital Sign Reading Time Taken Comments Blood Pressure 138/82 04/20/2021 3:59 PM CHIN STRAP SEWER Pulse 88 04/20/2021 3:59 PM CHIN STRAP SEWER Temperature 36.9 ??C (98.5 ??F) 04/20/2021 3:52 PM CHIN STRAP SEWER Respiratory Rate 18 04/20/2021 3:52 PM CHIN STRAP SEWER Oxygen Saturation 96% 04/20/2021 3:52 PM CHIN STRAP SEWER Inhaled Oxygen Concentration - - Weight 153 kg (337 lb 9.6 oz) 04/20/2021 3:52 PM CHIN STRAP SEWER Height 176 cm (5' 9.29) 04/20/2021 3:52 PM CHIN STRAP SEWER Body Mass Index 49.44 04/20/2021 3:52 PM CHIN STRAP SEWER documented in this encounter Progress Notes Yolanda Colón, AMBER, C.N.P. - 04/20/2021 4:00 PM CST SUBJECTIVE CHIEF COMPLAINT / REASON FOR VISIT Cristi Macdonald presents for evaluation of Sore Throat (1 week) and Cough (months) HISTORY OF PRESENT ILLNESS Cristi Macdonald is a pleasant 75 y.o. male who presents for sore dry throat that he has hadfor several months but worse in the last week. He is wondering if the cause would be his new diuretic as he feels the metolazone is drying him out and is hoping to go back to his 1st water pill. He describes it as a hoarse dry scratchy throat making it difficult for him to swallow specifically in the evening due to the discomfort. He denies any fever, chills or sweats. He has had irritating dry coughon and off for several months. He has completed his COVID vaccination, denies any change in smell ortaste, no body aches, shortness of breath or chest pain. The following portions of the patient's history were reviewed and updated as appropriate: allergies,current medications, family history, medical history, social history, surgical history and problem list. REVIEW OF SYSTEMS Respiratory: Positive for dry cough. The following systems were negative: Constitutional, Skin, Eyes, ENT, CV, GI, , Hematologic, Musculoskeletal, Neuro, Psych History Review OBJECTIVE BP 138/82 (BP Location: Left arm, Patient Position: Sitting, Cuff Size: Large) Pulse 88 Temp 36.9 ??C (Temporal) Resp 18 Ht 176 cm Wt (!) 153 kg SpO2 96% BMI 49.44 kg/m?? PHYSICAL EXAM General: Patient is alert, oriented x 3 and in no acute distress. HEENT: Conjunctiva, TMs, nasal mucosa clear. Buccal mucosa is dry, voice is hoarse. Pharynx clear without tonsillar adenopathy or exudate. Neck nontender without cervical adenopathy. CHEST: Respirations equal and nonlabored. Lungs CTA without wheeze, rhonchi or rale. CARDIOVASCULAR: Heart rate and rhythm regular without murmur. ASSESSMENT / PLAN #1 Pharyngitis Acute Symptomatic treatment was reviewed. Encouraged increased fluids, throat lozenges. Prednisone 40 mg daily for the next 3-5 days was prescribed for symptom relief. Await COVID and strep test and call with those results when they return. Veqz-lgh-scczgxr analgesics for discomfort. F/u in 1 week if no impr ovement - SARS Coronavirus-2 RNA, V Symptomatic - Strep Group A, PCR, Point of Care #2 Morbid Obesity (HCC) body mass index 45.0-49.9 Reinforce the importance of portion control, getting regular exercise. Dietary consult offered, patient declined at this time. 3. Venous insufficiency chronic peripheral Continue with the compression stockings. Will go back to the furosemide 40 mg daily, discontinue metolazone. STRAP SEWER documented in this encounter Miscellaneous Notes Result Encounter Note - Neeru Hoffman R.N. - 04/22/2021 10:33 AM CHIN STRAP SEWER Your patient has tested positive for SARS-CoV-2, the virus that causes COVID-19. IMPORTANT: Please update the patient's problem list and medication list to ensure an accurate and timely evaluation for COVID-19 treatments, including various medications and Remote Patient Monitoring (RPM). If eligible for COVID-19 treatments or RPM, your patient will be contacted by a designated team of nurses to coordinate the care. The [place] [facility] Team ([facility]) sends general guidance about COVID-19 to all patients by letter or portal, except when a patient is hospitalized or resides in a snf. The [facility] will also call all adult patients at highest risk for severe complications of COVID-19 . [facility] will not be calling patients who have a MASS 0-3. If your patient has limited Azeri proficiency or challenges navigating the healthcare system, consider having a member of your care team contact them regarding their COVID diagnosis. Any patient with a MASS score 1 or greater or a COVID-19 score 1 or greater may be at higher risk ofsevere disease. These patients will follow up directly with primary care. The primary care team willdecide if the patient needs a phone call or a follow up portal message to assess symptom severity, provide individualized guidance on symptom monitoring or symptom management, or to reinforce when to se ek care. [facility] encourages patients to follow up with their PCP with questions, worsening symptoms, or for symptom management. For questions, contact the [place] [facility] Team ([facility]): Pager: [phone] In basket: P RST/[facility] COVID-19 POSITIVE Covid Care e-consult Components of the Monoclonal Antibody Selection Score (MASS) Compromised Immune System/Transplant = 4 points Chronic Kidney Disease on Dialysis = 3 points Age greater than or equal to 55 and chronic pulmonary disease = 2 points Age greater than or equal to 65 = 2 points Diabetes = 2 points Age greater than or equal to 55 AND cardiovascular disease = 2 points Age greater than or equal to 55 and hypertension = 1 point BMI =/> 35 = 1 point NOTE: At the time of testing, patients are instructed to obtain the result by calling the [employer] result line or by checking their online services account. STRAP SEWER documented in this encounter Plan of Treatment Upcoming Encounters Date Type Specialty Care Team Description 02/11/2022 Appointment Laboratory Medicine Neli Hearn M.D. [address] [facility] [place] [phone] (Stephon rk) 02/14/2022 Office Visit Family Medicine Lilli Hearn M.D. [address] [facility] [place] [phone] (Stephon rk) documented as of this encounter Procedures Procedure Name Priority Date/Time Associated Diagnosis Comme nts STREP GROUP A, PCR, Routine 04/20/2021 7:17 PM Re sults for this POCT CHIN STRAP SEWER procedure are i n the results section. SARS CORONAVIRUS 2 Routine 04/20/2021 4:17 PM Res ults for this PCR DETECT, V CHIN STRAP SEWER procedure are in the results section. STREP GROUP A, PCR, Routine 04/20/2021 4:17 PM Pharyngitis Acu te Results for this POCT CHIN STRAP SEWER procedure are i n the results section. documented in this encounter Results Strep Group A, PCR, Point of Care (04/20/2021 7:17 PM CHIN STRAP SEWER) athologist Signature Strep Group A, Negative Negative 04/20/2021 [facility] PCR, POCT 7:17 PM CHIN STRAP SEWER Specimen Anatomical Collection Method Collection Time Receive d Time (Source) Location / / Volume Laterality Varies 04/20/2021 7:17 PM 7:32 CHIN STRAP SEWER PM CHIN STRAP SEWER Generic Rals LAB POCT ORDERABLES - DEVICE Performing Organization Address City/State/ZIP Code Phon e Number [facility]- [address] [place], [place] [address] [place] [address] LAB NPRG [facility] [place] [address] [facility] [address] (ABNORMAL) SARS Coronavirus 2 PCR Detect, V (04/20/2021 4:17 PM CHIN STRAP SEWER) [facility] Method Time Signature SARS-CoV-2 Nasopharynx 04/22/2021 [facility] Specimen 8:27 AM CHIN STRAP SEWER Source SARS-CoV-2 Detected (A) Undetected 04/22/2021 [facility] RNA by PCR 8:27 AM CHIN STRAP SEWER Comment: SARS-CoV-2 RNA present. ----ADDITIONAL INFORMATION---- This RT-PCR test using the carolyne SARS-Co V-2 assay ([employer] performed on the carolyne 6800/8800 S ystem has received Emergency Use Authorization (EUA) by the U.S. Food and Drug Administration, and is modified from the entry level truck driver's instructions wit h a bridging study. Performance characteristics were verified by [facility] inic in a manner consistent with CLIA requirements. Fact sheets for this Emergency Use Autho rization (EUA) assay can be found at the following links: For Healthcare Providers: https://www.b-datum a.gov/media/493168/download For Patients: https://www.Apps & Zerts.gov/media/ 277988/download Specimen (Source) Anatomical Collection Method Collection Time Re ceived Time Location / / Volume Laterality Varies 04/20/2021 4:17 PM CHIN STRAP SEWER Narrative [facility] - 04/22/2021 8:27 AM CHIN STRAP SEWER Specimen Information: Specimen ID: [id number] Specimen Type: Varies Specimen Collection Start Date: 04/20/19 ??4:17 PM Specimen ID: [id number] Specimen Type: Varies Specimen Collection Start Date: 04/22/19 ??1:41 AM Specimen Received Date: 04/22/2021 ??1:4 1 AM Yolanda Colón APRN, C.N.P. LAB MICROBIOLOGY - GENE RAL ORDERABLES Performing Organization Address City/State/ZIP Code Phon e Number [facility] [address] [place], [place] [address] [facility] [place] [address] Laboratory Medicine and Pathology [address] [place] [address] Dr. [place] Strep Group A, PCR, Point of Care (04/20/2021 4:17 PM CHIN STRAP SEWER) Analysis Performed At Patho logist Time Signature Strep Group A, Collected DEFAULT 04/20/2021 NPR[facility] PCR, POCT 4:17 PM CHIN STRAP SEWER Specimen Anatomical Collection Method Collection Time Receive d Time (Source) Location / / Volume Laterality Varies (Throat) 04/20/2021 4:17 PM 2021 4:17 CHIN STRAP SEWER PM CHIN STRAP SEWER Yolanda Colón APRN, C.N.P. LAB POCT ORDERABLES - D EVICE Performing Organization Address City/State/ZIP Code Phon e Number [facility]- [address] [place], [place] [address] [address] [place] [address] documented in this encounter Visit Diagnoses Diagnosis Pharyngitis Acute - Primary Morbid Obesity Body Mass Index 45.0-49.9 Adult (HCC) Venous Insufficiency Chronic Peripheral documented in this encounter Additional Health Concerns Infection Onset Date Last Indicated Resolved Time COVID19 Pending 04/20/2021 04/20/2021 04/21/2021 8:48 PM CHIN STRAP SEWER Assessment Noted Time PHQ-9 Depression Total Score: 4 04/16/2019 10:58 AM CS T documented as of this encounter Care Teams Carpet Cutter Relationship Specialty Start Date End Date Yolanda Colón APRN, C.N.P. PCP - General 09/08/16 documented as of this encounter
--- OUTSIDE RECORDS SUMMARY | 2021-12-28 09:57 | XMS_ITS | Encounter Summary ---
:1945 Author Organization [facility] Address [address] [place] [address] Care Team Providers Name Role Phone Yolanda Colón APRN, C.N.P. Primary Care Provider [phone] Encounter Details Date Type Department Care Team Description 01/05/2021 Orders Only Department of Family Yolanda Colón, Medicine in [facility] AMBER, C. N.P. [place] [address] [facility] [address] [place] [phone] (Wo rk) Social History Tobacco Use Types [...] or relatives? How often do you attend gnosticism or 1 to 4 times per year 11/2019 temple services? 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 [address] [place] [phone] (Wo rk) 02/14/2022 Office Visit Family Medicine Lilli Hearn M.D. [address] [place] [phone] (Wo rk) documented as of this encounter Visit Diagnoses Not on filedocumented in this encounter Additional Health Concerns Assessment Noted Time PHQ-9 Depression Total Score: 4 04/16/2019 10:58 AM CS T documented as of this encounter Care Teams Division Manager Relationship Specialty Start Date End Date Yolanda Colón APRN, C.N.P. PCP - General 09/08/16 documented as of this encounter
--- OUTSIDE RECORDS SUMMARY | 2021-12-28 09:57 | XMS_ITS | Encounter Summary ---
:1945 Author Organization [facility] Address [address] [place] [address] Care Team Providers Name Role Phone Yolanda Colón APRN, C.N.P. Primary Care Provider [phone] Reason for Visit Reason Comments Med Refill Encounter Details Date Type Department Care Team Description 01/25/2021 Refill Department of Family Medicine Yolanda Colón APRN, Med Refill in [facility] lela C.N.P. [address] [place], [place] [phone] [place] [phone] (Wo rk) Social History Tobacco Use Types [...] or relatives? How often do you attend anglican or 1 to 4 times per year 11/2019 gnosticism services? 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 - 01/25/2021 2:12 PM CDT Requested Prescriptions Pending Prescriptions Disp Refills ??? naproxen (NAPROSYN) 500 mg tablet [Pharmacy Med Name: NAPROXEN 500MG] 90 tablet 1 Sig: STATES HE ONLY TAKES IT IF HIS BACK HURTS. STATES HE TAKES THIS ABOUT 3-4 TIMES PER WEEK Last Refilled: 05/12/2020 Last Appointment: 12/01/2020 Future Appointment: no future appointment documented in this encounter Plan of Treatment Upcoming Encounters Date Type Specialty Care Team Description 02/11/2022 Appointment Laboratory Medicine Neli Hearn M.D. [address] [place] [phone] (Wo rk) 02/14/2022 Office Visit Family Medicine Lilli Hearn M.D. [address] [place] [phone] (Wo rk) documented as of this encounter Visit Diagnoses Not on filedocumented in this encounter Additional Health Concerns Assessment Noted Time PHQ-9 Depression Total Score: 4 04/16/2019 10:58 AM CS T documented as of this encounter Care Teams Account General Manager Relationship Specialty Start Date End Date Yolanda Colón APRN, C.N.P. PCP - General 09/08/16 documented as of this encounter
--- OUTSIDE RECORDS SUMMARY | 2021-12-28 09:57 | XMS_ITS | Encounter Summary ---
:1945 Author Organization [facility] Address [address] [place] [address] Care Team Providers Name Role Phone Yolanda Colón APRN, C.N.P. Primary Care Provider [phone] Reason for Visit Reason Comments Med Refill Encounter Details Date Type Department Care Team Description 04/12/2021 Refill Department of Family Medicine Yolanda Colón APRN, Med Refill in [facility] lela C.N.P. 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 - 04/12/2021 11:37 AM SCREEN MAKING SUPERVISOR Name of Medication(s) Needing Refill: bupropion XL 300 mg tablet Last Appointment: 12/01/20: PHQ-9 = 0 Future Appointment: none EN MAKING SUPERVISOR documented in this encounter Plan of Treatment Upcoming Encounters Date Type Specialty Care Team Description 02/11/2022 Appointment Laboratory Medicine Neli Hearn M.D. [address] [place] [phone] (Wo rk) 02/14/2022 Office Visit Family Medicine Lilli Hearn M.D. [address] [place] [phone] (Wo rk) documented as of this encounter Visit Diagnoses Not on filedocumented in this encounter Additional Health Concerns Assessment Noted Time PHQ-9 Depression Total Score: 4 04/16/2019 10:58 AM CS T documented as of this encounter Care Teams Project Account Manager Relationship Specialty Start Date End Date Yolanda Colón APRN, C.N.P. PCP - General 09/08/16 documented as of this encounter
--- OUTSIDE RECORDS SUMMARY | 2021-12-28 09:57 | XMS_ITS | Encounter Summary ---
:1945 Author Organization [facility] Address [address] [place] [address] Care Team Providers Name Role Phone Yolanda Colón APRN, C.N.P. Primary Care Provider [phone] Reason for Visit Outpatient (Routine) - Closed Specialty Diagnoses / Procedures Referred By Contact Refer red To Contact Diagnoses Morbid Obesity (HCC) Shortness Of Breath Abnormal Electrocardiogram Yolanda Colón, [facility] Region Procedures NM Cardiac Perfusion Rest and Stress SPECT AMBER C.N.P. [address] [place] [address] Referral ID Status Reason Start Date Expiration Date Visits Requ ested Visits Authorized [id number] Closed 12/01/2020 12/01/2021 6 6 Encounter Details Date Type Department Care Team Description 12/29/2020 Hospital Encounter Department of Yolanda Colón Cardiovascular Diseases in YIN Hart RN, C.N.PFamilia [place], [facility] [address] [place] [address]09 [phone] Social History Tobacco Use Types Packs/Day Years [...] or relatives? How often do you attend congregational or 1 to 4 times per year 11/2019 methodist services? Do you belong to any clubs or No 12/04/2019 organizations such as congregational groups, unions, fraFTRANS or athletic groups, or school groups? 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 [address] [place] [address] (Wo rk) 02/14/2022 Office Visit Family Medicine Lilli Hearn M.D. [address] [place] [phone] (Wo rk) documented as of [...] MAR Action Action Date Dose Rate Site regadenoson injection 0.4 mg Given 12/29/2020 8:50 AM CDT 0.4 mg (LEXISCAN) 0.4 mg, intravenous, Once in imaging, contrast, Starting on Mon12/29/20 at 0858, For 1 dose, Administer via rapid IV injection (approximately 10 seconds). documented in this encounter Additional Health Concerns Assessment Noted Time PHQ-9 Depression Total Score: 4 04/16/2019 10:58 AM CS T documented as of this encounter Care Teams [place] I Police Sergeant Relationship Specialty Start Date End Date Yolanda Colón APRN, C.N.P. PCP - General 09/08/16 documented as of this encounter
--- OUTSIDE RECORDS SUMMARY | 2021-12-28 09:58 | XMS_ITS | Encounter Summary ---
:1945 Author Organization [facility] Address [address] [place] [address] Care Team Providers Name Role Phone Yolanda Colón APRN, C.N.P. Primary Care Provider [phone] Encounter Details Date Type Department Care Team Description 10/12/2020 Orders Only [facility] PCP TH MNT Yolanda Colón onitoring For AMBER Hart, C.N.P. 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 [address] [place] [phone] (Wo rk) 02/14/2022 Office Visit Family Medicine Lilli Hearn M.D. [address] [place] [phone] (Wo rk) documented as of this encounter Visit Diagnoses Diagnosis Monitoring For Therapeutic Drug Therapy documented in this encounter Additional Health Concerns Assessment Noted Time PHQ-9 Depression Total Score: 4 04/16/2019 10:58 AM CS T documented as of this encounter Care Teams Fuse Cup Expander Relationship Specialty Start Date End Date Yolanda Colón APRN, C.N.P. PCP - General 09/08/16 documented as of this encounter
--- OUTSIDE RECORDS SUMMARY | 2021-12-28 09:58 | XMS_ITS | Encounter Summary ---
:1945 Author Organization [facility] Address [address] [place] [address] Care Team Providers Name Role Phone Yolanda Colón APRN, C.N.P. Primary Care Provider [phone] Reason for Visit Reason Comments Med Refill Encounter Details Date Type Department Care Team Description 05/08/2020 Refill Department of Family Medicine Yolanda Colón APRN, Med Refill in [facility] lela C.N.P. [address] [place], [place] [phone] [place] [phone] (Wo rk) Social History Tobacco Use Types [...] 1 to 4 times per year 11/2019 cheondoism services? 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 - 05/08/2020 10:34 AM HEEL LIFT GOUGER Medications Needing Refill: naproxen 500 mg tab take 1-2 tabs daily Last Refilled: 04/16/19 Last Appointment: 01/14/20 Future Appointment: no future office visits scheduled Medications Needing Refill: Spironolactone 50 mg take 1 tab PO daily Last Refilled: 03/28/20 LIFT GOUGER documented in this encounter Plan of Treatment Upcoming Encounters Date Type Specialty Care Team Description 02/11/2022 Appointment Laboratory Medicine Neli Hearn M.D. [address] [place] [phone] (Wo rk) 02/14/2022 Office Visit Family Medicine Lilli Hearn M.D. [address] [place] [phone] (Wo rk) documented as of this encounter Visit Diagnoses Not on filedocumented in this encounter Additional Health Concerns Assessment Noted Time PHQ-9 Depression Total Score: 4 04/16/2019 10:58 AM CS T documented as of this encounter Care Teams Sock Lining Examiner Relationship Specialty Start Date End Date Yolanda Colón APRN, C.N.P. PCP - General 09/08/16 documented as of this encounter
--- OUTSIDE RECORDS SUMMARY | 2021-12-28 09:58 | XMS_ITS | Encounter Summary ---
:1945 Author Organization [facility] Address [address] [place] [address] Care Team Providers Name Role Phone Yolanda Colón APRN, C.N.P. Primary Care Provider [phone] Reason for Referral Outpatient (Routine) - Closed Specialty Diagnoses / Procedures Referred By Contact Refer red To Contact Family Medicine [facility] C.N.P[facility] [address] [place] [address] Referral ID Status Reason Start Date Expiration Date Visits Requ ested Visits Authorized [id number] Closed 12/11/2020 12/11/2021 1 1 Scheduling Instructions Schedule appointment along with provider annual exam. Last medicare visit 12/11/2020 Reason for Visit Reason Comments Medicare Annual Wellness Visit Subsequent Outpatient (Routine) - Closed Specialty Diagnoses / Procedures Referred By Contact Refer red To Contact Family Johnathan Sneed D.O. [facility] [address] [place] [address] Referral ID Status Reason Start Date Expiration Date Visits Requ ested Visits Authorized [id number] Closed 12/04/2019 12/03/2020 1 1 Encounter Details Date Type Department Care Team Description 12/11/2020 Office Visit Department of Rc Joyner D.O. [address] [place] [address] Annual Medicare Medicine in Torri Rolle Rosaura, R.N. [address] [place] [address] Examination Return Terri Michael (Primary Dx) [address] [place] [address] Social History Tobacco Use Types Packs/Day Years [...] or relatives? How often do you attend samaritan or 1 to 4 times per year 11/2019 uatsdin services? 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 - 12/11/2020 8:00 AM CDT HEALTH ASSESSMENT Reason For Visit Patient presents with ??? Medicare Annual Wellness Visit Subsequent VITALS: BP 143/82 (BP Location: Left arm, Patient Position: Sitting, Cuff Size: Large) Pulse 68 Temp 36.9 ??C (Temporal) Wt (!) 152 kg SpO2 96% BMI 49.00 kg/m?? PHQ-2 PHQ-9 Mini Cog Timed Up and Go Test: FUNCTIONAL/HOME ENVIRONMENT History of falls: Have you fallen within the last year or do you fear you might fall?: No (:43 AM) Do you use an assisted device to walk? (Walker, cane, wheelchair, crutch): No (12/11/2020 7:43 AM) Today, do you feel any of the following? Weak, dizzy, shaky, or unsteady?: No (12/11/2020 7:43 AM) Have you taken any medication within the last 6 hours which may make you feel drowsy? Such as sleep,pain, or anxiety medication: No (12/11/2020 7:43 AM) Goals None The following portions of the patients history were reviewed and updated as appropriate: allergies, medications, family history, medical history and social history. Home Environment: [facility] home has the following: functional smoke alarms, grab bars in bathroom and handrails on stairs/steps. Home Environment Note: Lives in [facility], [facility] style home Advanced Directive Status: Advance directive declined After Visit Summary (AVS) reviewed and provided to patient via printed copy or portal Provider notified on Treatment Plan: Stress test is still pending. Limited on walking due to low back pain and swelling in the one leg. Patient was seen by provider on 12/01/2020. Torri Rolle R.N. documented in this encounter Plan of Treatment Upcoming Encounters Date Type Specialty Care Team Description 02/11/2022 Appointment Laboratory Medicine Neli Hearn M.D. [address] [place] [phone] (Wo rk) 02/14/2022 Office Visit Family Medicine Lilli Hearn M.D. [address] [place] [phone] (Wo rk) Scheduled Referrals Name Type Priority Associated Diagnoses Order S [facility] Family Medicine Outpatient Referral Routine Expec deidre: nurse visit 12/13/2021 (clinic) (Approximate), Expires: 12/12/2023 documented as of this encounter Visit Diagnoses Diagnosis Annual Medicare Examination Return - Roseanna ailyn documented in this encounter Additional Health Concerns Assessment Noted Time PHQ-9 Depression Total Score: 4 04/16/2019 10:58 AM CS T documented as of this encounter Care Teams Tool Turret Lathe Set Up Operator Relationship Specialty Start Date End Date Yolanda Colón APRN, C.N.P. PCP - General 09/08/16 documented as of this encounter
--- OUTSIDE RECORDS SUMMARY | 2021-12-28 09:58 | XMS_ITS | Encounter Summary ---
:1945 Author Organization [facility] Address [address] [place] [address] Care Team Providers Name Role Phone Yolanda Colón APRN, C.N.P. Primary Care Provider [phone] Reason for Visit Reason Comments Med Refill Encounter Details Date Type Department Care Team Description 07/06/2020 Refill Department of Family Medicine Yolanda Colón APRN, Med Refill in [facility] lela C.N.P. [address] [place], [place] [phone] [place] [phone] (Wo rk) Social History Tobacco Use Types [...] or relatives? How often do you attend judaism or 1 to 4 times per year 11/2019 hindu services? 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 [address] [place] [address] (Wo rk) 02/14/2022 Office Visit Family Medicine Lilli Hearn M.D. [address] [place] [address] (Wo rk) documented as of this encounter Visit Diagnoses Not on filedocumented in this encounter Additional Health Concerns Assessment Noted Time PHQ-9 Depression Total Score: 4 04/16/2019 10:58 AM CS T documented as of this encounter Care Teams Personnel Generalist Manager Relationship Specialty Start Date End Date Yolanda Colón, AMBER, C.N.P. PCP - General 09/08/16 documented as of this encounter
--- OUTSIDE RECORDS SUMMARY | 2021-12-28 09:58 | XMS_ITS | Encounter Summary ---
:1945 Author Organization [facility] Address [address] [place] [address] Care Team Providers Name Role Phone Yolanda Colón APRN, C.N.P. Primary Care Provider [phone] Reason for Referral Outpatient (Routine) - Closed Specialty Diagnoses / Procedures Referred By Contact Refer red To Contact Family Medicine Johnathan [facility] [address] [place] [address] Referral ID Status Reason Start Date Expiration Date Visits Requ ested Visits Authorized [id number] Closed 12/04/2019 12/03/2020 1 1 Scheduling Instructions 12 Month Medicare visit Reason for Visit Reason Comments Medicare Annual Wellness Visit Subsequent Outpatient (Routine) - Closed Specialty Diagnoses / Procedures Referred By Contact Refer red To Contact Family Medicine [facility] [address] [place] [address] Referral ID Status Reason Start Date Expiration Date Visits Requ ested Visits Authorized [id number] Closed 11/07/2019 11/06/2020 1 1 Encounter Details Date Type Department Care Team Description 12/04/2019 Office Visit Department of Yolanda Craven APRN, C.N.P. [address] [place] [address] Annual Medicare Medicine in [place], Wendy Kaplan R.N. [address] [place] [address] Examination Return Terri Michael (Primary Dx) [address] [place] [address] Social History Tobacco Use Types Packs/Day Years Used Date Smoking Tobacco: Former Smokeless Tobacco: Former Tobacco Cessation: Counseling Given: No Alcohol Use Standard Drinks/Week Comments Yes 0 [...] or relatives? How often do you attend latter-day or 1 to 4 times per year 11/2019 tenriism services? 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 - 12/04/2019 1:00 PM CDT HEALTH ASSESSMENT Reason For Visit Patient presents with ??? Medicare Annual Wellness Visit Subsequent VITALS: BP 138/78 (BP Location: Left arm, Patient Position: Sitting, Cuff Size: Large) Pulse 66 Temp 37.2 ??C (Temporal) Resp 16 Wt (!) 154 kg SpO2 97% BMI 49.67 kg/m?? PHQ-2 PHQ-2 Score: 0 PHQ-9 Mini Cog Mini Cognitive Exam Word Version: 3 Clock Draw (CTD): CDT Normal Word Recall: 2 Mini Cog Exam Result: 4 Timed Up and Go Test: Timed Up and Go (TUG): <9 FUNCTIONAL/HOME ENVIRONMENT History of falls: no hx of falling The following portions of the patients history were reviewed and updated as appropriate: allergies, medications, family history, medical history, problem list, social history, surgical history and careteams/suppliers. Home Environment: [facility] home has the following: functional smoke alarms, handrails on stairs/steps and throw rugs. Home Environment Note: Advised to remove all throw rugs to prevent falling Advanced Directive Status: Advance directive information given After Visit Summary (AVS) reviewed and provided to patient via printed copy or portal Provider notified on 12/04/2019. Recommendations: Advised to consider immunizations noted on Care Gaps, patient refused. Offered written information on BP health, refused. Wendy Miguel R.N. Answers for HPI/ROS submitted by the patient on 12/04/2019 No general issues: Yes No eye issues: Yes No ENT issues: Yes Swelling in the legs or feet: Yes No respiratory issues: Yes No GI issues: Yes No muscle/bone issues: Yes No skin issues: Yes No neurologic issues: Yes No mental health issues: Yes No blood/lymph issues: Yes No urinary/reproductive issues: Yes documented in this encounter Plan of Treatment Upcoming Encounters Date Type Specialty Care Team Description 02/11/2022 Appointment Laboratory Medicine Neli Hearn M.D. [address] [place] [phone] (Wo rk) 02/14/2022 Office Visit Family Medicine Lilli Hearn M.D. [address] [place] [phone] (Wo rk) Scheduled Referrals Name Type Priority Associated Diagnoses Order S [facility] Family Medicine Outpatient Referral Routine Expec deidre: nurse visit 12/11/2020 (clinic) (Approximate), Expires: 12/03/2022 documented as of this encounter Visit Diagnoses Diagnosis Annual Medicare Examination Return - Roseanna ailyn documented in this encounter Additional Health Concerns Assessment Noted Time PHQ-9 Depression Total Score: 4 04/16/2019 10:58 AM CS T documented as of this encounter Care Teams Impregnation Operator Relationship Specialty Start Date End Date Yolanda Colón APRN, C.N.P. PCP - General 09/08/16 documented as of this encounter
--- OUTSIDE RECORDS SUMMARY | 2021-12-28 09:58 | XMS_ITS | Encounter Summary ---
:1945 Author Organization [facility] Address [address] [place] [address] Care Team Providers Name Role Phone Yolanda Colón APRN, C.N.P. Primary Care Provider [phone] Reason for Referral Outpatient (Routine) - Closed Specialty Diagnoses / Procedures Referred By Contact Refer red To Contact Diagnoses Morbid Obesity (HCC) Shortness Of Breath Abnormal Electrocardiogram Yolanda Colón [facility] Procedures NM Cardiac Perfusion Rest and Stress SPECT AMBER, C.N.P. [address] [place] [address] Referral ID Status Reason Start Date Expiration Date Visits Requ ested Visits Authorized [id number] Closed 12/01/2020 12/01/2021 6 6 utpatient (Routine) - Closed Specialty Diagnoses / Procedures Referred By Contact Refer red To Contact Diagnoses Edema Pedal Shortness Of Breath Yolanda Colón APRN [facility] Region Procedures ECG 12 Lead C.N.P. [address] [place] [address] Referral ID Status Reason Start Date Expiration Date Visits Requ ested Visits Authorized [id number] Closed 12/01/2020 12/01/2021 1 1 Reason for Visit Reason Comments Other back, right leg, handicap ca rd, and tired all the time. Encounter Details Date Type Department Care Team Description 12/01/2020 Office Visit Department of Family Katarzyna Obstruc tinatalie Sleep Apnea Adult (Primary Dx); Medicine in Yolanda Hart APRN, Morbid Obesit y (HCC); Haroon Michael Hypothyroidism; [place] [address] Edema Pedal; [address] [place], [place] Shortness Of Breath; [place] [address] Primary Osteoarthritis; [id number] Degeneration Disc Lumbar; Abnormal Electrocardiogram Social History Tobacco Use Types Packs/Day Years [...] 1 to 4 times per year 11/2019 sabianism services? 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 - 12/01/2020 3:30 PM CDT SUBJECTIVE CHIEF COMPLAINT / REASON FOR VISIT Cristi Macdonald presents for evaluation of Other (back, right leg, handicap card, and tiredall the time. ) HISTORY OF PRESENT ILLNESS Cristi Macdonald is a pleasant 75 y.o. male who presents for multiple concerns today. He states this is the ???worst I have ever felt?? . He complains of continued chronic low back pain with degenerative disc disease and bulged discs present from previous MRIs. He has decided he did not want to proceed with any steroid injections and or physical therapy. He is continue to manage conservatively. He is requesting a handicap form be completed so he can park closer. He is complaining of feeling tired all the time, excessive fatigue and no energy. He complains of persistent weeping of his lower legs. They are always swollen and will open spontaneously weeping a clear watery drainage. He does not wear David hose and does not wrap his legs with Dragan wraps as it is uncomfortable. He gets little exercise during his day. He denies any redness, heat to touch or pain in his lower extremities. No fever,chills or sweats. He denies any shortness of breath or chest pain but does feel winded with exertionwhich is not abnormal for him. Reports no numbness in his lower extremities. He has a past medical history of obstructive sleep apnea, hypothyroid, chronic venous insufficiency/pedal edema with negative venous and arterial ultrasound completed October 2019. History of morbid obesity, benign essential hypertension, BPH without obstruction and hyperlipidemia. The following portions of the patient's history were reviewed and updated as appropriate: allergies,current medications, family history, medical history, social history, surgical history and problem list. REVIEW OF SYSTEMS Constitutional: Positive for fatigue. Negative for fever, loss of appetite and night sweats. Respiratory: Negative for coughing up mucus (phlegm), dry cough and dyspnea. Cardiovascular: Positive for swelling in the legs or feet. Negative for chest pain, pressure or tightness, rapid or fluttering heart beat and shortness of breath when lying flat. Musculoskeletal: Positive for back pain. The following systems were negative: Skin, Eyes, GI, Neuro MEDICATIONS Current Outpatient Medications on File Prior to Visit Medication Sig Dispense Refill ??? amLODIPine (NORVASC) 5 mg tablet TAKE 1 TABLET (5 MG TOTAL) BY MOUTH DAILY. 90 tablet 3 ??? aspirin [address] tablet Take 81 mg by mouth. ??? buPROPion XL (WELLBUTRIN XL) 300 mg 24 hr tablet TAKE 1 TABLET (300 MG TOTAL) BY MOUTH EVERY MORNING. 90 tablet 2 ??? GLUCOSAMINE/CHONDR NOONAN A SOD (OSTEO BI-FLEX ORAL) Take 1 tablet by mouth 2 (two) times a day. ??? losartan (COZAAR) 100 mg tablet TAKE 1 TABLET (100 MG TOTAL) BY MOUTH DAILY. 90 tablet 3 ??? MULTIVITAMIN WITH MINERALS ORAL Take 1 tablet by mouth daily. ??? naproxen (NAPROSYN) 500 mg tablet States he only takes it if his back hurts. States he takes this about 3-4 times per week 90 tablet 2 ??? omega-3 fatty acids (FISH OIL) 500 mg capsule Take 2 tablets by mouth daily. ??? omeprazole (PriLOSEC) [address] capsule TAKE ONE (1) CAPSULE BY MOUTH DAILY 90 capsule 3 ??? pravastatin (PRAVACHOL) 80 mg tablet TAKE 1 TABLET (80 MG TOTAL) BY MOUTH AT BEDTIME. 90 tablet 0 ??? terazosin (HYTRIN) 1 mg capsule TAKE 1 CAPSULE (1 MG TOTAL) BY MOUTH DAILY. 90 capsule 3 No current facility-administered medications on file prior to visit. OBJECTIVE BP 129/71 Pulse 83 Temp 37 ??C (Temporal) Resp 18 Wt (!) 150 kg SpO2 96% BMI 48.44 kg/m?? PHYSICAL EXAM General: Patient is alert, oriented x 3 and in no acute distress. HEENT: Conjunctiva, TMs, nasal mucosa clear. Pharynx clear without tonsillar adenopathy or exudate. Neck nontender without cervical adenopathy. CHEST: Respirations equal and nonlabored. Lungs CTA without wheeze, rhonchi or rale. CARDIOVASCULAR: Heart rate and rhythm regular without murmur. ABD: Abdomen is soft,nontender without palpable mass or organomegaly. Bowel sounds active. No rebound or guarding. Extremities: 2+ nonpitting pedal edema. Ready discoloration is noted. Pedal pulses are strong and palpable bilaterally. He has 1 open area on the right anterior dave that is weeping a clear watery fluid. There is no surrounding erythema, heat to touch or tenderness. Diagnostics Results for orders placed or performed in visit on 12/01/20 CBC with Differential, Blood Result Value Ref Range Hemoglobin 13.8 13.2 - 16.6 g/dL Hematocrit 41.8 38.3 - 48.6 % Erythrocytes 4.55 4.35 - 5.65 x10(12)/L MCV 91.9 78.2 - 97.9 fL RBC Distrib Width 12.6 11.8 - 14.5 % Platelet Count 287 135 - 317 x10(9)/L Leukocytes 7.8 3.4 - 9.6 x10(9)/L Neutrophils 3.36 1.56 - 6.45 x10(9)/L Lymphocytes 3.61 (H) 0.95 - 3.07 x10(9)/L Monocytes 0.66 0.26 - 0.81 x10(9)/L Eosinophils 0.16 0.03 - 0.48 x10(9)/L Basophils 0.03 0.01 - 0.08 x10(9)/L Basic Metabolic Panel Result Value Ref Range Potassium, P 4.5 3.6 - 5.2 mmol/L Sodium, P 137 135 - 145 mmol/L Chloride, P 102 98 - 107 mmol/L Bicarbonate, P 26 22 - 29 mmol/L Anion Gap, P 9 7 - 15 BUN (Blood Urea Nitrogen), P 16 8 - 24 mg/dL Creatinine, P 1.09 0.74 - 1.35 mg/dL eGFR-Black/ 77 >=60 mL/min/BSA eGFR Non-Black/ 67 >=60 mL/min/BSA Calcium, Total, P 9.8 8.8 - 10.2 mg/dL Glucose, P 122 70 - 140 mg/dL S-TSH (Thyroid-Stimulating Hormone - Sensitive) Result Value Ref Range TSH, Sensitive, P 2.1 0.3 - 4.2 mIU/L NT-Pro B-Type Natriuretic Peptide (BNP) Result Value Ref Range NT-Pro BNP, P 33 <=107 pg/mL ECG 12 Lead Result Value Ref Range Ventricular Rate ECG/Min 78 BPM WA Interval 188 ms QRSD Interval 156 ms QT Interval 418 ms QTC Interval 476 ms P Hopewell 24 degrees R Hopewell 13 degrees T Wave Hopewell -2 degrees ASSESSMENT / PLAN #1 Morbid Obesity (HCC) Low-fat low-cholesterol diet, portion control, getting regular daily exercise, limiting carbohydrates reviewed. Discussed considering bariatric surgery, patient declined at this time. #2 Obstructive Sleep Apnea Adult Advised a re-consult with Dr. montano for repeat sleep study, patient declined at this time. He is wearing his CPAP. #3 Hypothyroidism Repeat TSH today - S-TSH (Thyroid-Stimulating Hormone - Sensitive) #4 Edema Pedal This is chronic in nature for him and I encouraged him to wear Dragan wraps which I offered to provide,patient declined. Recommended David hose, patient declined. Reassured him that this does not appear esa infectious in nature. Discussed further referral to Dr. Silva for evaluation of his lower extremities, patient declined at this time. #5 Shortness Of Breath EKG was abnormal today showing some new ST-T abnormalities. Recommend stress echocardiogram. Patientagreed and this was ordered for him today. ProBNP was negative. #6 Primary Osteoarthritis Handicap form was completed today #7 Degeneration Disc Lumbar We discussed further physiatry consultation, supportive conservative treatment management, core strengthening. Patient denies any further referral at this time #8 Abnormal Electrocardiogram As above Other orders - CBC with Differential, Blood - Basic Metabolic Panel - ECG 12 Lead - NT-Pro B-Type Natriuretic Peptide (BNP) - DME Power mobility, complex rehab equipment adults and pediatric (7-element); - NM Cardiac Perfusion Rest and Stress SPECT; Future; Expected date: 12/01/2020 - furosemide (LASIX) 40 mg tablet; Take 1 tablet (40 mg total) by mouth daily., Starting Mon12/01/2020, Normal documented in this encounter Plan of Treatment Upcoming Encounters Date Type Specialty Care Team Description 02/11/2022 Appointment Laboratory Medicine Neli Hearn M.D. [address] [facility] [place] [address] (Stephon rk) 02/14/2022 Office Visit Family Medicine Lilli Hearn M.D. [address] [facility] [place] [address] (Stephon rk) documented as of this encounter Procedures Procedure Name Priority Date/Time Associated Diagnosis Comme nts NT-PRO B-TYPE Routine 12/01/2020 4:26 Edema Pedal Results for this NATRIURETIC PEPTIDE PM CDT Shortness Of Breath p rocedure are in (BNP), S the results section. CBC WITH Routine 12/01/2020 4:26 Edema Pedal Results for this DIFFERENTIAL, B PM CDT Shortness Of Breath proce dure are in the results section. THYROID-STIMULATING Routine 12/01/2020 4:26 Hypothyroidism Res ults for this HORMONE-SENSITIVE PM CDT procedure are in (S-TSH) the results section. BASIC METABOLIC Routine 12/01/2020 4:26 Edema Pedal Results for this PANEL, S/P PM CDT Shortness Of Breath procedur e are in the results section. ECG Routine 12/01/2020 4:19 Edema Pedal Results for this PM CDT Shortness Of Breath procedur e are in the results section. documented in this encounter Results NM Cardiac Perfusion Rest and Stress SPECT (12/29/2020 10:38 AM CDT) Specimen (Source) Anatomical Collection Method Collection Time Re ceived Time Location / / Volume Laterality 12/29/2020 8:25 AM CDT Narrative [facility] CV MERGE - 12/29/2020 2:05 PM CDT This result has an attachment that is no t available. See PDF For Result Procedure Note Jp Perry M.D. - 12/29/2020Format ting of this note might be different from the original. See PDF For Result Yolanda Colón APRN, C.N.PFamilia IMG NM PROCEDURES Performing Organization Address City/State/ZIP Code Phon e Number [facility] CV MERGE [facility] CV MERGE NA NT-Pro B-Type Natriuretic Peptide (BNP) (12/01/2020 4:26 PM CDT) athologist Signature NT-Pro BNP 33 <=107 pg/mL 12/01/2020 [facility] 7:21 PM CDT Comment: NT-proBNP values less than 300 pg/mL hav e a 99% negative predictive value for excluding acute congestive heart jyoti lure. A cutoff of 1200 pg/mL for patients with an eGFR<60 yields a diagno stic sensitivity and specificity of 89% and 72% for acute congestive heart f ailure. ??A diagnostic NT-proBNP cutoff of 900 pg/mL has been suggested i n adults 50-75 years of age in the absence of renal failure. Biotin has been identified by the josue lobato as a potential interfering substance. ??Higher concentr ations of biotin may be found in multivitamins, hair/nail supple ments, and workout supplements. ??If the result does not ma tch clinical observations, repeat testing after patient refrains fr om the use of supplements for at least 12 hours. Specimen Anatomical Collection Method Collection Time Receive d Time (Source) Location / / Volume Laterality Blood (Blood, 12/01/2020 4:26 PM 12/02/19 21 6:46 Venous) CDT PM CDT Yolanda Colón APRN, C.N.P. LAB BLOOD ADD-ON Performing Organization Address City/State/ZIP Code Phon e Number [facility] [address] [place] [address] [place] [address] [place] [address] [place] [address] [place] S-TSH (Thyroid-Stimulating Hormone - Sensitive) (12/01/2020 4:26 PM CDT) athologist Signature TSH, Sensitive 2.1 0.3 - 4.2 12/01/2020 [facility] mIU/L 7:21 PM CDT Specimen Anatomical Collection Method Collection Time Receive d Time (Source) Location / / Volume Laterality Blood (Blood, 12/01/2020 4:26 PM 12/02/19 21 6:46 Venous) CDT PM CDT Yolanda Colón APRN, C.N.P. LAB BLOOD ADD-ON Performing Organization Address City/State/ZIP Code Phon e Number [facility]- [address] [place] [address] [place] [facility] [place] [address] Basic Metabolic Panel (12/01/2020 4:26 PM CDT) P athologist Signature Potassium, P 4.5 3.6 - 5.2 12/01/2020 [facility] mmol/L 7:57 PM CDT Sodium, P 137 135 - 145 12/01/2020 [facility] mmol/L 7:57 PM CDT Chloride, P 102 98 - 107 12/01/2020 [facility] mmol/L 7:57 PM CDT Bicarbonate, P 26 22 - 29 12/01/2020 [facility] mmol/L 7:57 PM CDT Anion Gap, P 9 7 - 15 12/01/2020 [facility] 7:57 PM CDT BUN (Blood Urea 16 8 - 24 12/01/2020 NPR[facility] Nitrogen), P mg/dL 7:57 PM CDT Creatinine 1.09 0.74 - 12/01/2020 [facility] 1.35 mg/dL 7:57 PM CDT eGFR-Black/Afric 77 >=60 12/01/2020 NPR[facility] an Turkish mL/min/BSA 7:57 PM CDT Comment: ----ADDITIONAL INFORMATION---- Estimated GFR calculated using the 2009 CKD_EPI creatinine equation. eGFR Non-Black/ 67 >=60 mL/min/BSA 7:57 PM CDT NPRG Comment: ----ADDITIONAL INFORMATION---- Estimated GFR calculated using the 2009 CKD_EPI creatinine equation. Calcium, Total, P 9.8 8.8 - 10.2 mg/dL 12/01/2020 7:57 PM CDT NPRG Glucose, P 122 70 - 140 mg/dL 12/01/2020 7:57 PM CDT N PRG Specimen Anatomical Collection Method Collection Time Receive d Time (Source) Location / / Volume Laterality Blood (Blood, 12/01/2020 4:26 PM 12/02/19 6:46 Venous) CDT PM CDT Yolanda Colón APRN, C.N.P. LAB BLOOD ADD-ON Performing Organization Address City/State/ZIP Code Phon e Number [facility]- [address] [place] [address] [place] [facility] [place] [address] (ABNORMAL) CBC with Differential, Blood (12/01/2020 4:26 PM CDT) [facility] Method Time Signature Hemoglobin 13.8 13.2 - 12/01/2020 NPRG 16.6 g/dL 7:29 PM CDT Hematocrit 41.8 38.3 - 12/01/2020 NPR[facility] 48.6 % 7:29 PM CDT Erythrocytes 4.55 4.35 - 12/01/2020 [facility] 5.65 7:29 PM CDT x10(12)/L MCV 91.9 78.2 - 12/01/2020 [facility] 97.9 fL 7:29 PM CDT RBC Distrib Width 12.6 11.8 - 12/01/2020 [facility] 14.5 % 7:29 PM CDT Platelet Count 287 135 - 317 12/01/2020 NPR[facility] x10(9)/L 7:29 PM CDT Leukocytes 7.8 3.4 - 9.6 12/01/2020 NPR[facility] x10(9)/L 7:29 PM CDT Neutrophils 3.36 1.56 - 12/01/2020 NPRG 6.45 7:29 PM CDT x10(9)/L Lymphocytes 3.61 (H) 0.95 - 12/01/2020 NPR[facility] 3.07 7:29 PM CDT x10(9)/L Monocytes 0.66 0.26 - 12/01/2020 NPRG 0.81 7:29 PM CDT x10(9)/L Eosinophils 0.16 0.03 - 12/01/2020 NPR[facility] 0.48 7:29 PM CDT x10(9)/L Basophils 0.03 0.01 - 12/01/2020 NPRG 0.08 7:29 PM CDT x10(9)/L Specimen Anatomical Collection Method Collection Time Receive d Time (Source) Location / / Volume Laterality Blood (Blood, 12/01/2020 4:26 PM 12/02/19 21 6:46 Venous) CDT PM CDT Yolanda Colón APRN, C.N.P. LAB BLOOD ADD-ON Performing Organization Address City/State/ZIP Code Phon e Number [facility]- [address] [place], [place] [address] [place] [facility] [place] [address] ECG 12 Lead (12/01/2020 4:19 PM CDT) P athologist Signature Ventricular Rate 78 BPM MUSE ECG/Min WA Interval 188 ms MUSE QRSD Interval 156 ms MUSE QT Interval 418 ms MUSE QTC Interval 476 ms MUSE P Hopewell 24 degrees MUSE R Hopewell 13 degrees MUSE T Wave Hopewell -2 degrees MUSE Specimen Anatomical Collection Method Collection Time Receive d Time (Source) Location / / Volume Laterality 12/01/2020 4:19 PM 4:24 CDT PM CDT Impressions MUSE - 12/01/2020 4:24 PM CDT Normal sinus rhythm Right bundle branch block with secondary ST-T abnormalities No previous ECGs available Reviewed by RODY Grimm Narrative This result has an attachment that is no t available. Procedure Note Jude Lucia M.D., Ph.D. - 1 IMPRESSION: Normal sinus rhythm Right bundle branch block with secondary ST-T abnormalities No previous ECGs available Reviewed by RODY Grimm Yolanda Colón APRN, C.N.P. 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 PCP - General 09/08/16 documented as of this encounter
--- OUTSIDE RECORDS SUMMARY | 2021-12-28 09:58 | XMS_ITS | Encounter Summary ---
:1945 Author Organization [facility] Address [address] [place] [address] Care Team Providers Name Role Phone Yolanda Colón APRN, C.N.P. Primary Care Provider [phone] Reason for Visit Reason Comments Med Refill Encounter Details Date Type Department Care Team Description 01/06/2020 Refill Department of Family Medicine Yolanda Colón APRN, Med Refill in [facility] thony C.N.P. [address] [place], [place] [phone] [place] [phone] (Wo rk) Social History Tobacco Use Types [...] 1 to 4 times per year 11/2019 taoism services? 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 - 01/06/2020 1:57 PM CDT Medications Needing Refill: ompeprazole 20mg take 1 tab po daily Last Refilled:07/03/2018 Last Appointment:11/26/19 Future Appointment: 01/07/20 documented in this encounter Plan of Treatment Upcoming Encounters Date Type Specialty Care Team Description 02/11/2022 Appointment Laboratory Medicine Neli Hearn M.D. [address] [place] [phone] (Wo rk) 02/14/2022 Office Visit Family Medicine Lilli Hearn M.D. 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 PCP - General 09/08/16 documented as of this encounter
--- OUTSIDE RECORDS SUMMARY | 2021-12-28 09:58 | XMS_ITS | Encounter Summary ---
:1945 Author Organization [facility] Address [address] [place] [address] Care Team Providers Name Role Phone Yolanda Colón APRN, C.N.P. Primary Care Provider [phone] Reason for Visit Reason Comments Follow-up swelling continues~ Outpatient (Routine) - Closed Specialty Diagnoses / Procedures Referred By Contact Refer red To Contact Family Medicine Yolanda Colón APRN, [facility] C.N.P. [address] [place] [address] Referral ID Status Reason Start Date Expiration Date Visits Requ ested Visits Authorized [id number] Closed 01/07/2020 01/06/2021 1 1 Encounter Details Date Type Department Care Team Description 01/14/2020 Office Visit Department of Yolanda Craven ma Pedal Chronic Medicine id AMBER Hart, C.N.P. (Primary Dx) Michael, [facility] [address] [place] [phone] Social History Tobacco Use Types Packs/Day Years [...] or relatives? How often do you attend islam or 1 to 4 times per year 11/2019 buddhism services? Do you belong to any clubs or No 12/04/2019 organizations such as islam groups, TRUE linkswears, fraDailyCred or athletic groups, or school groups? 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 - 01/14/2020 8:00 AM CDT SUBJECTIVE CHIEF COMPLAINT / REASON FOR VISIT Cristi Macdonald is a 74 y.o. male who presents for evaluation of Follow-up (swelling continues~ ) HISTORY OF PRESENT ILLNESS 74-year-old male returns today to go over results from his lower extremity arterial ultrasound completed at [facility] last week. He states his swelling is slightly improved and the wound fromtraumatic injury on the right lower leg is healing. He is changing the dressing as needed. He does get a serous colored drainage present. Denies any fever, chills or sweats, no increase in pain. He hasnot been elevating or wrapping his legs due to discomfort. He is using the spironolactone 50 mg. Denies new concerns or complaints. The following portions of the patient's history were reviewed and updated as appropriate: allergies,current medications, family history, medical history, social history, surgical history and problem list. REVIEW OF SYSTEMS Cardiovascular: Positive for swelling in the legs or feet. The following systems were negative: Constitutional, Skin, Eyes, ENT, Respiratory, GI, , Hematologic, Musculoskeletal, Neuro, Psych MEDICATIONS Current Outpatient Medications on File Prior to Visit Medication Sig Dispense Refill ??? amLODIPine (NORVASC) 5 mg tablet Take 1 tablet (5 mg total) by mouth daily. 90 tablet 3 ??? aspirin [address] tablet Take 81 mg by mouth. ??? buPROPion XL (WELLBUTRIN XL) 300 mg 24 hr tablet Take 1 tablet (300 mg total) by mouth every morning. 90 tablet 3 ??? doxycycline hyclate (VIBRAMYCIN) 100 mg capsule Take 1 capsule (100 mg total) by mouth 2 (two) times a day for 10 days. 20 capsule 0 ??? GLUCOSAMINE/CHONDR NOONAN A SOD (OSTEO BI-FLEX ORAL) Take 1 tablet by mouth 2 (two) times a day. ??? hydroCHLOROthiazide (HYDRODIURIL) 25 mg tablet Take 25 mg by mouth daily. ??? losartan (COZAAR) 100 mg tablet Take 1 tablet (100 mg total) by mouth daily. 90 tablet 3 ??? MULTIVITAMIN WITH MINERALS ORAL Take 1 tablet by mouth daily. ??? naproxen (NAPROSYN) 500 mg tablet Takes daily (Patient taking differently: States he only takes it if his back hurts. States he takes this about 3-4 times per week ) 90 tablet 3 ??? omega-3 fatty acids (FISH OIL) 500 mg capsule Take 2 tablets by mouth daily. ??? omeprazole (PriLOSEC) [address] capsule TAKE ONE (1) CAPSULE BY MOUTH DAILY 90 capsule 3 ??? pravastatin (PRAVACHOL) 80 mg tablet Take 1 tablet (80 mg total) by mouth at bedtime. 90 tablet 3 ??? spironolactone (ALDACTONE) 50 mg tablet Take 1 tablet (50 mg total) by mouth daily. 60 tablet 0 ??? terazosin (HYTRIN) 1 mg capsule Take 1 capsule (1 mg total) by mouth daily. 90 capsule 3 No current facility-administered medications on file prior to visit. OBJECTIVE BP 144/78 (BP Location: Left arm, Patient Position: Sitting, Cuff Size: Large) Pulse 92 Temp 36.7 ??C (Temporal) Resp 19 SpO2 92% PHYSICAL EXAM General: Patient is alert, oriented x 3 and in no acute distress. HEENT: Conjunctiva, TMs, nasal mucosa are clear. Pharynx is clear without tonsillar adenopathy or exudate. Neck is nontender without cervical adenopathy. CHEST: Respirations are equal and nonlabored. Lungs are clear to auscultation without wheeze, rhonchi or rale. CARDIOVASCULAR: Heart rate and rhythm are regular without murmur. Lower extremities: 1+ nonpitting edema in the right lower leg. Chronic venous stasis changes noted. The skin is warm to touch, small amount of erythema is noted around the open sore but overall decrease in erythema is noted in the right lower extremity. Sensation is appropriate. The sore is approximately 1.5 in in diameter, serous drainage present. Nontender to palpation. The area was cleaned with wound cleanser. Triple antibiotic ointment and nonstick Telfa dressing applied. Diagnostics Ultrasound right lower leg 11/15/2019 negative for DVT ProBNP 11/12/2019- 5 Lab Results Component Value Date NA 136 01/07/2020 K 4.4 01/07/2020 CL 99 01/07/2020 HCO3 26 04/16/2019 CREATININE 0.98 01/07/2020 EGFR 77 01/07/2020 BUN 19 01/07/2020 ANIONGAP 10 01/07/2020 GLUCOSE 144 (H) 01/07/2020 CALCIUM 10.0 01/07/2020 Arterial ultrasound right leg 01/13 No arterial stenosis, monophasic flow distally suggesting chronic arterial sclerosis. ASSESSMENT / PLAN 1. Edema Pedal Chronic Reviewed his results today. Will increase spironolactone to 50-100 mg daily. Patient will take 1-2 tablets a day. I encouraged patient to restart wrapping his legs with Dragan wrap or using his David hose that he has at home. I encouraged to elevate legs as much as possible throughout the day. He should limit his sodium intake. 2. Skin abrasion Continue to monitor for any increase in redness, pain, drainage. He should keep the area clean and dry and apply dressing as needed. Follow-up as needed for any change in lesion. I suspect that this will continue to heal quickly. documented in this encounter Plan of Treatment Upcoming Encounters Date Type Specialty Care Team Description 02/11/2022 Appointment Laboratory Medicine Neli Hearn M.D. [address] [place] [address] (Wo rk) 02/14/2022 Office Visit Family Medicine Lilli Hearn M.D. [address] [place] [phone] (Wo rk) documented as of this encounter Visit Diagnoses Diagnosis Edema Pedal Chronic - Primary documented in this encounter Additional Health Concerns Assessment Noted Time PHQ-9 Depression Total Score: 4 04/16/2019 10:58 AM CS T documented as of this encounter Care Teams Development Consultant Relationship Specialty Start Date End Date Yolanda Colón APRN, C.N.P. PCP - General 09/08/16 documented as of this encounter
--- OUTSIDE RECORDS SUMMARY | 2021-12-28 09:58 | XMS_ITS | Encounter Summary ---
:1945 Author Organization [facility] Address [address] [place] [address] Care Team Providers Name Role Phone Yolanda Colón APRN, C.N.P. Primary Care Provider [phone] Reason for Referral Outpatient (Routine) - Closed Specialty Diagnoses / Procedures Referred By Contact Refer red To Contact Diagnoses Morbid Obesity (HCC) Shortness Of Breath Abnormal Electrocardiogram Yolanda Colón [facility] Region Procedures NM Cardiac Perfusion Rest and Stress SPECT AMBER, C.N.P. [address] [place] [address] Referral ID Status Reason Start Date Expiration Date Visits Requ ested Visits Authorized [id number] Closed 12/01/2020 12/01/2021 6 6 Reason for Visit Outpatient (Routine) - Closed Specialty Diagnoses / Procedures Referred By Contact Refer red To Contact Diagnoses Morbid Obesity (HCC) Shortness Of Breath Abnormal Electrocardiogram Yolanda Colón [facility] Region Procedures NM Cardiac Perfusion Rest and Stress SPECT AMBER, C.N.P. [address] [place] [address] Referral ID Status Reason Start Date Expiration Date Visits Requ ested Visits Authorized [id number] Closed 12/01/2020 12/01/2021 6 6 Encounter Details Date Type Department Care Team Description 12/15/2020 Hospital Encounter Department of Ari Colón O besity (HCC); Radiology in [place] Hart, Shortness O f Breath; [place], [place] AMBER, C.N.P. Abnormal Electrocardiogram [address] [facility] [address] [place] [address] Social History Tobacco Use Types Packs/Day [...] or relatives? How often do you attend hinduism or 1 to 4 times per year 11/2019 druze services? 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 0 GLUCOSAMINE/CHONDR NOONAN A Take 1 tablet by 0 2013 SOD (OSTEO BI-FLEX ORAL) mouth 2 (two) times a day. MULTIVITAMIN WITH Take 1 tablet by 0 03/11/2015 MINERALS ORAL mouth daily. omega-3 fatty acids 500 Take 2 tablets by 0 07/16 mg capsule mouth daily. Capsules 1200 mg, take 2 caps daily omeprazole (PriLOSEC) 20 TAKE ONE (1) CAPSULE [address] capsule BY MOUTH DAILY amLODIPine (NORVASC) 5 TAKE 1 TABLET (5 MG 90 tablet 3 03/11/202006/07/2021 mg tablet TOTAL) BY MOUTH DAILY. buPROPion XL (WELLBUTRIN TAKE 1 TABLET (300 90 tablet 2 04/12/2021 XL) 300 mg 24 hr tablet MG TOTAL) BY MOUTH EVERY MORNING. furosemide (LASIX) 40 mg Take 1 tablet (40 mg 30 tablet 0 0 12/01/2020 12/21/2020 tablet total) by mouth daily. losartan (COZAAR) 100 mg TAKE 1 TABLET (100 90 tablet 3 11/202005/27/2021 tablet MG TOTAL) BY MOUTH DAILY. naproxen (NAPROSYN) 500 States he only takes 90 tablet 2 01/26/2021 mg tablet it if his back hurts. States he takes this about 3-4 times per week pravastatin (PRAVACHOL) TAKE 1 TABLET (80 MG 90 tablet 0 12/21/2020 80 mg tablet TOTAL) BY MOUTH AT BEDTIME. terazosin (HYTRIN) 1 mg TAKE 1 CAPSULE (1 MG 90 capsule 3 05/27/2021 capsule TOTAL) BY MOUTH DAILY. documented as of this encounter Plan of Treatment Upcoming Encounters Date Type Specialty Care Team Description 02/11/2022 Appointment Laboratory Medicine Neli Hearn M.D. [address] [place] [phone] (Stephon caldera) 02/14/2022 Office Visit Family Medicine Lilli Hearn M.D. [address] [place] [phone] (Stephon caldera) documented as of this encounter Procedures Procedure Name Priority Date/Time Associated Diagnosis Comme nts NM CARDIAC RAD - Routine 12/29/2020 Morbid Obesity ( HCC) Results for PERFUSION REST (most inpatients 10:38 AM CDT Shortness Of Br eath this procedure AND STRESS SPECT and all Abnormal are in the outpatients) Electrocardiogram results section. documented in this encounter Results [...] See PDF For Result Yolanda Colón APRN, C.N.P. IMG NM PROCEDURES Performing Organization Address City/State/ZIP Code Phon e Number CV MERGE CV MERGE NA documented in this encounter Visit Diagnoses Diagnosis Morbid Obesity (HCC) Shortness Of Breath Abnormal Electrocardiogram documented in this encounter Administered Medications Inactive Administered Medications - up to 3 most recent administrations Medication Order MAR Action Action Date Dose Rate Site technetium Tc 99m sestamibi Given 12/15/2020 12:00 PM 31 millicu alfredito injection (Tc-99m CDT CARDIOLITE) 31 millicurie, intravenous, Once, On Mon12/15/20 at 1200, For 1 dose documented in this encounter Additional Health Concerns Assessment Noted Time PHQ-9 Depression Total Score: 4 04/16/2019 10:58 AM CS T documented as of this encounter Care Teams Manager Of Business Relationship Specialty Start Date End Date Yolanda Colón APRN, C.N.P. PCP - General 09/08/16 documented as of this encounter
--- OUTSIDE RECORDS SUMMARY | 2021-12-28 09:58 | XMS_ITS | Encounter Summary ---
:1945 Author Organization [facility] Address [address] [place] [address] Care Team Providers Name Role Phone Yolanda Colón APRN, C.N.P. Primary Care Provider [phone] Encounter Details Date Type Department Care Team Description 12/11/2020 Hospital Encounter Department of Rebekah Colón For Laboratory Medicine Yolanda Hart APRN, [facility] [place], C.N.P. Therapy [place] [address] [address] [facility] [address] [place] [phone] Social History Tobacco Use Types Packs/Day Years [...] or relatives? How often do you attend jew or 1 to 4 times per year 11/2019 pentecostalism services? 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 buPROPion [...] Laboratory Medicine Neli Hearn M.D. [address] [place] [facility] [place] [phone] (Wo rk) 02/14/2022 Office Visit Family Medicine Lilli Hearn M.D. [address] [place] [facility] [place] [phone] (Wo rk) documented as of this encounter Visit Diagnoses Diagnosis Monitoring For Therapeutic Drug Therapy documented in this encounter Additional Health Concerns Assessment Noted Time PHQ-9 Depression Total Score: 4 04/16/2019 10:58 AM CS T documented as of this encounter Care Teams Transition Specialist Relationship Specialty Start Date End Date Yolanda Colón APRN, C.N.P. PCP - General 09/08/16 documented as of this encounter
--- OUTSIDE RECORDS SUMMARY | 2021-12-28 09:58 | XMS_ITS | Encounter Summary ---
:1945 Author Organization [facility] Address [address] [place] [address] Care Team Providers Name Role Phone Yolanda Colón APRN, C.N.P. Primary Care Provider [phone] Reason for Visit Reason Comments Med Refill Encounter Details Date Type Department Care Team Description 12/26/2019 Refill Department of Family Medicine Yolanda Colón APRN, Med Refill in [facility] thony C.N.P. [address] [place], [place] [phone] [place] [phone] (Wo rk) Social History Tobacco Use Types [...] or relatives? How often do you attend confucianist or 1 to 4 times per year 11/2019 sabianist services? 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 - 12/26/2019 9:03 AM CDT Patient wanted to know if Yolanda Katarzyna would refill new water pill. Informed patient, that Adelina did refill the medication. He should reschedule appointment within the next 2 weeks. Patient will call back and reschedule appt. He had no further questions. Telephone Encounter - Luana Almanza - 12/26/2019 8:17 AM CDT Pt asking to be called about renewing meds, Pt cancelled apt for 10-1 saying his back hurts too much to come in. Please contact documented in this encounter Plan of Treatment Upcoming Encounters Date Type Specialty Care Team Description 02/11/2022 Appointment Laboratory Medicine Neli Hearn M.D. [address] [place] [phone] (Stephon caldera) 02/14/2022 Office Visit Family Medicine Lilli Hearn M.D. [address] [place] [phone] (Stephon caldera) documented as of this encounter Visit Diagnoses Not on filedocumented in this encounter Additional Health Concerns Assessment Noted Time PHQ-9 Depression Total Score: 4 04/16/2019 10:58 AM CS T documented as of this encounter Care Teams [employer] Superintendent Relationship Specialty Start Date End Date Yolanda Colón, BUSINESS CONTINUITY PLANNER, C.N.P. PCP - General 09/08/16 documented as of this encounter
--- OUTSIDE RECORDS SUMMARY | 2021-12-28 09:58 | XMS_ITS | Encounter Summary ---
:1945 Author Organization [facility] Address [address] [place] [address] Care Team Providers Name Role Phone Yolanda Colón APRN, C.N.P. Primary Care Provider [phone] Reason for Visit Reason Comments Follow-up leg edema Outpatient (Routine) - Closed Specialty Diagnoses / Procedures Referred By Contact Refer red To Contact Family Medicine Diagnoses Edema Leg Hypertension Essential Primary Meri Estevez APRN, [facility] C.N.P. [address] [place] [address] Referral ID Status Reason Start Date Expiration Date Visits Requ ested Visits Authorized [id number] Closed 11/12/2019 11/11/2020 1 1 Encounter Details Date Type Department Care Team Description 11/26/2019 Office Visit Department of Family Yolanda Colón ma Leg; Medicine ame Hart APRN, C.N.P. Hypertension Essential Primary [facility] lyssa [address] [place] [phone] Social History Tobacco Use Types Packs/Day Years [...] or relatives? How often do you attend buddhism or 1 to 4 times per year 11/2019 muslim services? Do you belong to any clubs or No 12/04/2019 organizations such as buddhism groups, unions, fraRibbit or athletic groups, or school groups? How [...] or getting things needed for daily living? 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 - 11/26/2019 9:30 AM CDT SUBJECTIVE CHIEF COMPLAINT / REASON FOR VISIT Cristi Macdonald is a 74 y.o. male who presents for evaluation of Follow-up (leg edema ) HISTORY OF PRESENT ILLNESS 74 y/o male here for right leg edema. He notes no improvement since starting om 11/12/19 furosemide. Leg becomes swollen as the day goes on and improves with elevation. Denies pain but c/o tightness. Nochange in color, no drainage. Negative US for DVT 11/15/2019, normal BNP. No worsening of swelling. Denies SOB, dyspnea on exertion, chest pain, calf pain. No fever. He is noting slow weight gain. The following portions of the patient's history were reviewed and updated as appropriate: allergies,current medications, family history, medical history, social history, surgical history and problem list. REVIEW OF SYSTEMS Constitutional: Negative for fatigue and weight gain of more than 10 pounds. Skin: Positive for skin rash. Cardiovascular: Positive for swelling in the legs or feet. Negative for chest pain, pressure or tightness, rapid or fluttering heart beat and shortness of breath when lying flat. The following systems were negative: GI, , Neuro MEDICATIONS Current Outpatient Medications on File [...] mouth every morning. 90 tablet 3 ??? GLUCOSAMINE/CHONDR NOONAN A SOD (OSTEO BI-FLEX ORAL) Take 1 tablet by mouth 2 (two) times a day. ??? losartan (COZAAR) 100 mg tablet Take 1 tablet (100 mg total) by mouth daily. 90 tablet 3 ??? MULTIVITAMIN WITH MINERALS ORAL Take 1 tablet by mouth daily. ??? naproxen (NAPROSYN) 500 mg tablet Takes daily 90 tablet 3 ??? omega-3 fatty acids (FISH OIL) 500 mg capsule Take 2 tablets by mouth daily. ??? omeprazole (PriLOSEC) [address] capsule TAKE ONE (1) CAPSULE BY MOUTH DAILY 90 capsule 0 ??? pravastatin (PRAVACHOL) 80 mg tablet Take 1 tablet (80 mg total) by mouth at bedtime. 90 tablet 3 ??? terazosin (HYTRIN) 1 mg capsule Take 1 capsule (1 mg total) by mouth daily. 90 capsule 3 ??? [DISCONTINUED] furosemide (LASIX) 40 mg tablet Take 1 tablet (40 mg total) by mouth daily. 30 tablet 11 ??? buPROPion (Wellbutrin SR) 150 mg 12 hr tablet Take 150 mg by mouth 2 (two) times a day. ??? uhvwrqxlievgomm-GW-vduaIOTrbpt (ROBITUSSIN-PE) 30-10-100 mg/5 mL solution Take 10 mL by mouth every 4 (four) hours as needed for allergies. No current facility-administered medications on file prior to visit. OBJECTIVE BP 158/60 (BP Location: Left arm, Patient Position: Sitting, Cuff Size: Large) Pulse 74 Temp 36.8 ??C (Temporal) Resp 19 Ht 176 cm Wt (!) 154 kg SpO2 93% BMI 49.58 kg/m?? PHYSICAL EXAM General: Patient is alert, oriented x 3 and in no acute distress. HEENT: Conjunctiva, TMs, nasal mucosa are clear. Pharynx is clear without tonsillar adenopathy or exudate. Neck is nontender without cervical adenopathy. CHEST: Respirations are equal and nonlabored. Lungs are clear to auscultation without wheeze, rhonchi or rale. CARDIOVASCULAR: Heart rate and rhythm are regular without murmur. Lower extremities. 2+ nonpitting edema in the right lower extremity with skin taut, 1 + left lower leg edema. Venous stasis changes are noted bilaterally with some scarring from psoriasis present. The skin is warm to touch, no skin breakdown or drainage noted. Negative Homans sign. Pedal pulses strongand palpable bilaterally. ASSESSMENT / PLAN 1. Edema Leg Discussed using David hose or leg wrap and patient opted to have Dragan wraps. I did apply Dragan wrap to the right lower extremity and he will wear this while on his feet and take off in the evening. Advised to continue with elevating his legs at rest. Discussed obtaining an arterial ultrasound of the lower extremity with further consultation to peripheral vascular a specialty, Dr. Silva. Patient would like to hold off at this time for any further evaluation. Will try spironolactone 25 mg daily for the next1-2 weeks and discontinue the furosemide. He will monitor his weights daily and notify of any weightgain greater than 3-4 lb in a 24.. He should watch for any shortness of breath, dyspnea on exertion o r chest pain. Would consider further echocardiogram. Repeat BMP in 2 weeks. - Family Medicine office visit (clinic) 2. Hypertension Essential Primary Stable on current medication. - Family Medicine office visit (clinic) documented in this encounter Plan of Treatment Upcoming Encounters Date Type Specialty Care Team Description 02/11/2022 Appointment Laboratory Medicine Neli Hearn M.D. [address] [place] [place] [place] [phone] (Wo rk) 02/14/2022 Office Visit Family Medicine Lilli Hearn M.D. [address] [place] [place] [phone] (Stephon rk) documented as of this encounter Visit Diagnoses Diagnosis Edema Leg Hypertension Essential Primary documented in this encounter Additional Health Concerns Assessment Noted Time PHQ-9 Depression Total Score: 4 04/16/2019 10:58 AM CS T documented as of this encounter Care Teams Appeals Writer Relationship Specialty Start Date End Date Yolanda Colón APRN, C.N.P. PCP - General 09/08/16 documented as of this encounter
--- OUTSIDE RECORDS SUMMARY | 2021-12-28 09:58 | XMS_ITS | Encounter Summary ---
:1945 Author Organization [facility] Address [address] [place] [address] Care Team Providers Name Role Phone Yolanda Colón APRN, C.N.P. Primary Care Provider [phone] Reason for Referral Specialty Diagnoses / Procedures Referred By Contact Refer red To Contact [facility] Enoc wilcox [facility] Region [address] [place] [address] Referral ID Status Reason Start Date Expiration Date Visits Requ ested Visits Authorized Encounter Details Date Type Department Care Team Description 06/10/2020 Immunization Department of Marcellus [place] [facility]ine [facility] [place], [place] [address] Piña (Primary Dx) [address] [place] [phone] Social History Tobacco Use Types Packs/Day Years [...] or relatives? How often do you attend jehovah's witness or 1 to 4 times per year 11/2019 evangelical services? Do you belong to any clubs or No 12/04/2019 organizations such as jehovah's witness groups, unions, fraConteXtream or athletic groups, or school groups? 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 [address] [place] [phone] (Wo rk) 02/14/2022 Office Visit Family Medicine Lilli Hearn M.D. [address] [place] [phone] (Wo rk) Scheduled Referrals Name Type Priority Associated Diagnoses Order S chedule Covid immunization Outpatient Referral Routine Encounter For E xpected: office visit Covid-19 Vaccine 07/08/2020, Subsequent; 28 days Immunization Expires: 06/11/2023 documented as of this encounter Visit Diagnoses Diagnosis Encounter For COVID-19 Vaccine Immunizat ion - Primary documented in this encounter Additional Health Concerns Assessment Noted Time PHQ-9 Depression Total Score: 4 04/16/2019 10:58 AM CS T documented as of this encounter Care Teams Doorkeeper Relationship Specialty Start Date End Date Yolanda Colón APRN, C.N.P. PCP - General 09/08/16 documented as of this encounter
--- OUTSIDE RECORDS SUMMARY | 2021-12-28 09:58 | XMS_ITS | Encounter Summary ---
:1945 Author Organization [facility] Address [address] [place] [address] Care Team Providers Name Role Phone Yolanda Colón APRN, C.N.P. Primary Care Provider [phone] Reason for Visit Reason Comments Med Refill Encounter Details Date Type Department Care Team Description 09/28/2020 Refill Department of Family Medicine Yolanda Colón APRN, Med Refill in [facility] lela C.N.P. [address] [place], [place] [phone] [place] [phone] (Wo rk) Social History Tobacco Use Types [...] or relatives? How often do you attend mormon or 1 to 4 times per year 11/2019 latter-day services? 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 - 09/30/2020 10:55 AM CDT Name of Medication(s) Needing Refill: pravastatin 80 mg tablet Last Appointment: 01/14/20 Future Appointment: 12/11/20 documented in this encounter Plan of Treatment Upcoming Encounters Date Type Specialty Care Team Description 02/11/2022 Appointment Laboratory Medicine Neli Hearn M.D. [address] [place] [phone] (Wo rk) 02/14/2022 Office Visit Family Medicine Lilli Hearn M.D. [address] [place] [phone] (Wo rk) documented as of this encounter Visit Diagnoses Not on filedocumented in this encounter Additional Health Concerns Assessment Noted Time PHQ-9 Depression Total Score: 4 04/16/2019 10:58 AM CS T documented as of this encounter Care Teams Retail Support Specialist Relationship Specialty Start Date End Date Yolanda Colón APRN, C.N.P. PCP - General 09/08/16 documented as of this encounter
--- OUTSIDE RECORDS SUMMARY | 2021-12-28 09:58 | XMS_ITS | Encounter Summary ---
:1945 Author Organization [facility] Address [address] [place] [address] Care Team Providers Name Role Phone Yolanda Colón APRN, C.N.P. Primary Care Provider [phone] Reason for Referral Specialty Diagnoses / Procedures Referred By Contact Refer red To Contact Marcellus Fair M.D. [facility] Region [address] [place] [phone] Referral ID Status Reason Start Date Expiration Date Visits Requ ested Visits Authorized ER Encounter Details Date Type Department Care Team Description 05/20/2020 Orders Only [facility] PCP [facility] Marcellus Fair Jr., M.D. [address] [place] [phone] (Wo rk) Social History Tobacco Use Types [...] or relatives? How often do you attend yazidism or 1 to 4 times per year 11/2019 baptist services? 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 [address] [place] [phone] (Wo rk) 02/14/2022 Office Visit Family Medicine Lilli Hearn M.D. [address] [place] [phone] (Wo rk) Scheduled Referrals Name Type Priority Associated Order Schedule Diagnoses Covid immunization Outpatient Referral Routine Ex pected: office visit Initial 021 (Approximate), Expires: 05/20/2021 documented as of this encounter Visit Diagnoses Not on filedocumented in this encounter Additional Health Concerns Assessment Noted Time PHQ-9 Depression Total Score: 4 04/16/2019 10:58 AM CS T documented as of this encounter Care Teams Marketing Support Assistant Relationship Specialty Start Date End Date Yolanda Colón APRN, C.N.P. PCP - General 09/08/16 documented as of this encounter
--- OUTSIDE RECORDS SUMMARY | 2021-12-28 09:58 | XMS_ITS | Encounter Summary ---
:1945 Author Organization [facility] Address [address] [place] [address] Care Team Providers Name Role Phone Yolanda Colón APRN, C.N.P. Primary Care Provider [phone] Reason for Visit Reason Comments Med Refill Encounter Details Date Type Department Care Team Description 03/28/2020 Refill Department of Family Medicine Yolanda Colón APRN, Med Refill in [facility] lela C.N.P. 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 [address] [place] [phone] (Wo rk) 02/14/2022 Office Visit Family Medicine Lilli Hearn M.D. [address] [place] [phone] (Wo rk) documented as of this encounter Visit Diagnoses Not on filedocumented in this encounter Additional Health Concerns Assessment Noted Time PHQ-9 Depression Total Score: 4 04/16/2019 10:58 AM CS T documented as of this encounter Care Teams Customs Agent Relationship Specialty Start Date End Date Yolanda Colón APRN, C.N.P. PCP - General 09/08/16 documented as of this encounter
--- OUTSIDE RECORDS SUMMARY | 2021-12-28 09:58 | XMS_ITS | Encounter Summary ---
:1945 Author Organization [facility] Address [address] [place] [address] Care Team Providers Name Role Phone Yolanda Colón APRN, C.N.P. Primary Care Provider [phone] Reason for Visit Reason Comments Med Refill Encounter Details Date Type Department Care Team Description 02/14/2020 Refill Department of Family Medicine Yolanda Colón APRN, Med Refill in [facility] thony C.N.P. [address] [place], [place] [phone] [place] [phone] (Wo rk) Social History Tobacco Use Types [...] or relatives? How often do you attend mandaeism or 1 to 4 times per year 11/2019 oriental orthodox services? 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 - 02/14/2020 11:32 AM MOTORBOAT MECHANIC INBOARD Name of Medication(s) Needing Refill: SPIRONOLACT 50MG Additional Information: Last refill: 01/07/2020 Last Appointment: 01/14/2020 Future Appointment: No future appointments RBOAT MECHANIC INBOARD documented in this encounter Plan of Treatment Upcoming Encounters Date Type Specialty Care Team Description 02/11/2022 Appointment Laboratory Medicine Neli Hearn M.D. [address] [place] [phone] (Wo rk) 02/14/2022 Office Visit Family Medicine Lilli Hearn M.D. [address] [place] [phone] (Wo rk) documented as of this encounter Visit Diagnoses Not on filedocumented in this encounter Additional Health Concerns Assessment Noted Time PHQ-9 Depression Total Score: 4 04/16/2019 10:58 AM CS T documented as of this encounter Care Teams Account Strategist Relationship Specialty Start Date End Date Yolanda Colón APRN, C.N.P. PCP - General 09/08/16 documented as of this encounter
--- OUTSIDE RECORDS SUMMARY | 2021-12-28 09:58 | XMS_ITS | Encounter Summary ---
:1945 Author Organization [facility] Address [address] [place] [address] Care Team Providers Name Role Phone Yolanda Colón APRN, C.N.P. Primary Care Provider [phone] Reason for Visit Reason Comments Back Pain Encounter Details Date Type Department Care Team Description 08/26/2020 Clinical Communication Department of Yolanda Craven Back Pain Medicine in AM[place] Hart, C.N.PJohnna [facility] [address] [place] [phone] Social History Tobacco Use Types Packs/Day Years [...] or relatives? How often do you attend yarsanism or 1 to 4 times per year 11/2019 jain services? 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 - 08/26/2020 8:07 AM CDT SUBJECTIVE CHIEF COMPLAINT / REASON FOR CALL Back Pain ASSESSMENT Patient states he hurt his back. He said this happens to him 1-2 x a year and he typically gets along without any medication and treats it at home. He was hoping to get a muscle relaxer to help with his back pain so he can be more mobile. He reports severe pain with ambulation. PLAN Advised OV for evaluation with a provider in the absence of PCP availability. He has not been evaluated for this since 2017. He was prescribed Valium for this in the past 07/02/2019 by Adelina. Patient declined appointment. Disposition/Recommendation: Recommended OV or VV for evaluation/treatment. . Information/Education: patient/caller able to teach back. Caller agreeable to plan of care: no - he does not want to come in to clinic as his pain is worse with ambulation. He is unable to arrange for VV because he does not have that technology. . The following references were used: nursing clinical judgement. Telephone Encounter - Meri Bear - 08/26/2020 8:02 AM CDT Please do not reply to sender,emails are not monitored. Thank you. If you need a prescription refill please call your pharmacy. Please allow 3 business days for processing. Expert RN: N/A (Med Refill Only) Call Center Template: ??? May we leave a message for you on this phone? yes What can I help you with today? Patient threw his back out yesterday and can't hardly walk wonderingif a muscle relaxer could be called in for him. ??? If Medication Refill: o What is the name and strength of the medication? o What do you use the medication for? o How many pills do you have left? o What pharmacy do you use (include location)? I will send this information to the appropriate staff member who will look into your concern. Is there anything else I can help you with today? Thank you for calling [facility]. documented in this encounter Plan of Treatment Upcoming Encounters Date Type Specialty Care Team Description 02/11/2022 Appointment Laboratory Medicine Neli Hearn M.D. [address] [place] [phone] (Wo rk) 02/14/2022 Office Visit Family Medicine Lilli Hearn M.D. [address] [place] [phone] (Wo rk) documented as of this encounter Visit Diagnoses Not on filedocumented in this encounter Additional Health Concerns Assessment Noted Time PHQ-9 Depression Total Score: 4 04/16/2019 10:58 AM CS T documented as of this encounter Care Teams Blow Molding Machine Operator Relationship Specialty Start Date End Date Yolanda Colón, AMBER, C.N.P. PCP - General 09/08/16 documented as of this encounter
--- OUTSIDE RECORDS SUMMARY | 2021-12-28 09:58 | XMS_ITS | Encounter Summary ---
:1945 Author Organization [facility] Address [address] [place] [address] Care Team Providers Name Role Phone Yolanda Colón APRN, C.N.P. Primary Care Provider [phone] Reason for Referral Outpatient (Routine) - Closed Specialty Diagnoses / Procedures Referred By Contact Refer red To Contact Diagnoses Edema Leg Hypertension Essential Primary Meri Estevez APRN, [facility] Region Procedures US Lower Extremity Veins Right C.N.P. [address] [place] [address] Referral ID Status Reason Start Date Expiration Date Visits Requ ested Visits Authorized [id number] Closed 11/12/2019 11/11/2020 1 1 Reason for Visit Outpatient (Routine) - Closed Specialty Diagnoses / Procedures Referred By Contact Refer red To Contact Diagnoses Edema Leg Hypertension Essential Primary Meri Estevez APRN, [facility] Region Procedures US Lower Extremity Veins Right C.N.P. [address] [place] [address] Referral ID Status Reason Start Date Expiration Date Visits Requ ested Visits Authorized [id number] Closed 11/12/2019 11/11/2020 1 1 Encounter Details Date Type Department Care Team Description 11/15/2019 Hospital Encounter Department of Meri Estevez; Radiology in En[place] Hart APRN Hypertensio ester Essential Primary [place], [place] C.N.P. [address] [facility] [address] [place], [place] [phone] Social History Tobacco Use Types Packs/Day [...] 1 to 4 times per year 11/2019 confucianism services? 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 buPROPion (Wellbutrin Take 150 mg by mouth 0 01/07/2020 SR) 150 mg 12 hr tablet 2 (two) times a day. buPROPion XL (WELLBUTRIN Take 1 tablet (300 90 tablet 3 07/07/2020 XL) 300 mg 24 hr tablet mg total) by mouth every morning. furosemide (LASIX) 40 mg Take 1 tablet (40 mg 30 tablet 11 0 11/12/2019 11/26/2019 tabletIndications: Edema total) by mouth Leg, Hypertension daily. Essential Primary losartan (COZAAR) 100 mg Take 1 tablet (100 90 tablet 3 06/01/2020 tablet mg total) by mouth daily. naproxen (NAPROSYN) 500 Takes daily 90 tablet 3 04/16/2019 05/12/2020 mg tablet omeprazole (PriLOSEC) 20 TAKE ONE (1) CAPSULE 90 capsule 0 0 07/03/2018 01/06/[address] capsule BY MOUTH DAILY pravastatin (PRAVACHOL) Take 1 tablet (80 mg 90 tablet 3 03/28/2020 80 mg tablet total) by mouth at bedtime. qhtdksteknxqkdx-EV-luijR Take 10 mL by mouth 0 01/07/2020 ENesin (ROBITUSSIN-PE) every 4 (four) hours 30-10-100 mg/5 mL as needed for solution allergies. terazosin (HYTRIN) 1 mg Take 1 capsule (1 mg 90 capsule 3 06/01/2020 capsule total) by mouth daily. documented as of this encounter Plan of Treatment Upcoming Encounters Date Type Specialty Care Team Description 02/11/2022 Appointment Laboratory Medicine Neli Hearn M.D. [address] [place] [phone] (Stpehon caldera) 02/14/2022 Office Visit Family Medicine Lilli Hearn M.D. [address] [place] [address] (Stephon caldera) documented as of this encounter Procedures Procedure Name Priority Date/Time Associated Comments Diagnosis US LOWER RAD - Routine 11/15/2019 8:56 Edema Leg Results for this EXTREMITY VEINS (most inpatients AM CDT Hypertension procedur e are in RIGHT and all Essential Primary the result s outpatients) section. documented in this encounter Results US Lower Extremity Veins Right (11/15/2019 8:56 AM CDT) Anatomical Region Laterality Modality Lower Extremity, Ultrasound RST LOS, Ultrasound ARZ LOS, Rig ht Ultrasound Ultrasound FLA LOS Specimen (Source) Anatomical Collection Method Collection Time Re ceived Time Location / / Volume Laterality 11/15/2019 8:58 AM CDT Impressions 11/15/2019 8:59 AM CDT 1. ??Negative for Acute DVT. Narrative 11/15/2019 8:59 AM CDT EXAM: US LOWER EXTREMITY VEINS RIGHT Exam performed with color and spectral D oppler analysis. COMPARISON: None FINDINGS: RIGHT: ??The common femoral, upper deep femoral, femoral, and popliteal veins are widely patent, without thrombus. ??The p osterior tibial, peroneal, soleal and gastrocnemius veins were segmentally vis ualized and are normal where seen. ??The greater saphenous vein is patent and neg ative for thrombus. Procedure Note Myles Fontanez M.D. - 11/15/2019Forma tting of this note might be different from the original. EXAM: US LOWER EXTREMITY VEINS RIGHT Exam performed with color and spectral D oppler analysis. COMPARISON: None FINDINGS: RIGHT: The common femoral, upper deep fe moral, femoral, and popliteal veins are widely patent, without thrombus. The pos terior tibial, peroneal, soleal and gastrocnemius veins were segmentally vis ualized and are normal where seen. The greater saphenous vein is patent and neg ative for thrombus. IMPRESSION: 1. Negative for Acute DVT. Meri Estevez APRN, C.N.P. IMG US PROCEDURES documented in this encounter Visit Diagnoses Diagnosis Edema Leg Hypertension Essential Primary documented in this encounter Additional Health Concerns Assessment Noted Time PHQ-9 Depression Total Score: 4 04/16/2019 10:58 AM CS T documented as of this encounter Care Teams Chairman & Chief Executive Officer Relationship Specialty Start Date End Date Yoladna Colón APRN, C.N.P. PCP - General 09/08/16 documented as of this encounter
--- OUTSIDE RECORDS SUMMARY | 2021-12-28 09:58 | XMS_ITS | Encounter Summary ---
:1945 Author Organization [facility] Address [address] [place] [address] Care Team Providers Name Role Phone Yolanda Colón APRN, C.N.P. Primary Care Provider [phone] Reason for Visit Reason Comments Communication Encounter Details Date Type Department Care Team Description 12/25/2019 Clinical Communication Department of Yolanda Craven Communication Medicine in AMBER Hart, C.N.PTerri Villalobos a [address] [place] [phone] Social History Tobacco Use Types Packs/Day Years [...] or relatives? How often do you attend catholic or 1 to 4 times per year 11/2019 spiritism services? 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 - 12/25/2019 10:06 AM CDT Per OV 11/26/19 Will try spironolactone 25 mg daily for the next 1-2 weeks and discontinue the furosemide. Should patient continue the spironolactone? If so, please route refill to [facility]. He was advised to come in for BMP but he reports my back is out so he would like to set this up for next week. He wants to see Adelina again as well for f/u and reports he has a non-healing wound on hisleg he needs assessed. Patient was warm transferred to [facility] to make an appointment. Telephone Encounter - Margo Lopez - 12/25/2019 8:38 AM CDT Medhat would like a nurse to call him, he was put on new medication and he was told to call back to discuss how it is going. documented in this encounter Plan of Treatment Upcoming Encounters Date Type Specialty Care Team Description 02/11/2022 Appointment Laboratory Medicine Neli Hearn M.D. [address] [facility] [place] [phone] (Stephon caldera) 02/14/2022 Office Visit Family Medicine Lilli Hearn M.D. [address] [place] [facility] [phone] (Stephon caldera) documented as of this encounter Results (ABNORMAL) Basic Metabolic Panel (01/07/2020 3:22 PM CDT) P athologist Signature Potassium, P 4.4 3.6 - 5.2 01/07/2020 NPRG mmol/L 8:09 PM CDT Sodium, P 136 135 - 145 01/07/2020 NPRG mmol/L 8:09 PM CDT Chloride, P 99 98 - 107 01/07/2020 NPRG mmol/L 8:09 PM CDT Bicarbonate, P 27 22 - 29 01/07/2020 NPRG mmol/L 8:09 PM CDT Anion Gap, P 10 7 - 15 01/07/2020 NPRG 8:09 PM CDT BUN (Blood Urea 19 8 - 24 01/07/2020 NPRG Nitrogen), P mg/dL 8:09 PM CDT Creatinine 0.98 0.74 - 01/07/2020 NPRG 1.35 mg/dL 8:09 PM CDT eGFR-Black/Afric 89 >=60 01/07/2020 NPRG an Algerian mL/min/BSA 8:09 PM CDT Comment: ----ADDITIONAL INFORMATION---- Estimated GFR calculated using the 2009 CKD_EPI creatinine equation. eGFR Non-Black/ 77 >=60 mL/min/BSA 8:09 PM CDT NPRG Comment: ----ADDITIONAL INFORMATION---- Estimated GFR calculated using the 2009 CKD_EPI creatinine equation. Calcium, Total, P 10.0 8.8 - 10.2 mg/dL 01/07/2020 8:09 PM CDT NPRG Glucose, P 144 (H) 70 - 140 mg/dL 01/07/2020 8:09 PM CDT N PRG Specimen Anatomical Collection Method Collection Time Receive d Time (Source) Location / / Volume Laterality Blood (Blood, 01/07/2020 3:22 PM 01/07/20 20 7:38 Venous) CDT PM CDT Yolanda Colón APRN, C.N.P. LAB BLOOD ADD-ON Performing Organization Address City/State/ZIP Code Phon e Number [facility]- [address] [place], [place] [address] [facility] [place] [address] documented in this encounter Visit Diagnoses Diagnosis Hypertension Essential Primary - Primary documented in this encounter Additional Health Concerns Assessment Noted Time PHQ-9 Depression Total Score: 4 04/16/2019 10:58 AM CS T documented as of this encounter Care Teams Wood Drill Operator Relationship Specialty Start Date End Date Yolanda Colón APRN, C.N.P. PCP - General 09/08/16 documented as of this encounter
--- OUTSIDE RECORDS SUMMARY | 2021-12-28 09:58 | XMS_ITS | Encounter Summary ---
:1945 Author Organization [facility] Address [address] [place] [address] Care Team Providers Name Role Phone Yolanda Colón APRN, C.N.P. Primary Care Provider [phone] Reason for Visit Reason Comments Med Refill Encounter Details Date Type Department Care Team Description 05/29/2020 Refill Department of Family Medicine Yolanda Colón APRN, Med Refill in [facility] lela C.N.P. [address] [place], [place] [phone] [place] [phone] (Wo rk) Social History Tobacco Use Types [...] 1 to 4 times per year 11/2019 yazdanism services? 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 [address] [place] [phone] (Wo rk) 02/14/2022 Office Visit Family Medicine Lilli Hearn M.D. [address] [place] [phone] (Wo rk) documented as of this encounter Visit Diagnoses Not on filedocumented in this encounter Additional Health Concerns Assessment Noted Time PHQ-9 Depression Total Score: 4 04/16/2019 10:58 AM CS T documented as of this encounter Care Teams Manager Internet Relationship Specialty Start Date End Date Yolanda Colón APRN, C.N.P. PCP - General 09/08/16 documented as of this encounter
--- OUTSIDE RECORDS SUMMARY | 2021-12-28 09:58 | XMS_ITS | Encounter Summary ---
:1945 Author Organization [facility] Address [address] [place] [address] Care Team Providers Name Role Phone Yolanda Colón APRN, C.N.P. Primary Care Provider [phone] Reason for Visit Reason Comments Med Refill Encounter Details Date Type Department Care Team Description 08/28/2020 Refill Department of Family Medicine Yolanda Colón APRN, Med Refill in [facility] lela C.N.P. 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 - 08/28/2020 9:19 AM CDT Last office visit 01/14/2020 Adelina Colón documented in this encounter Plan of Treatment Upcoming Encounters Date Type Specialty Care Team Description 02/11/2022 Appointment Laboratory Medicine Neli Hearn M.D. [address] [place] [phone] (Wo rk) 02/14/2022 Office Visit Family Medicine Lilli Hearn M.D. [address] [place] [phone] (Wo rk) documented as of this encounter Visit Diagnoses Not on filedocumented in this encounter Additional Health Concerns Assessment Noted Time PHQ-9 Depression Total Score: 4 04/16/2019 10:58 AM CS T documented as of this encounter Care Teams Hot Iron Worker Relationship Specialty Start Date End Date Yolanda Colón APRN, C.N.P. PCP - General 09/08/16 documented as of this encounter
--- OUTSIDE RECORDS SUMMARY | 2021-12-28 09:58 | XMS_ITS | Encounter Summary ---
:1945 Author Organization [facility] Address [address] [place] [address] Care Team Providers Name Role Phone Yolanda Colón APRN, C.N.P. Primary Care Provider [phone] Encounter Details Date Type Department Care Team Description 07/08/2020 Immunization Department of [facility] Johnathan Guy Enco unter For COVID-19 Medicine in [facility] Vaccine Immunization [place], [place] [address] [place] [phone] Social History Tobacco Use Types Packs/Day Years [...] or relatives? How often do you attend taoism or 1 to 4 times per year 11/2019 presybeterian services? 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 [address] [place] [phone] (Wo rk) 02/14/2022 Office Visit Family Medicine Lilli Hearn M.D. [address] [place] [phone] (Wo rk) documented as of this encounter Visit Diagnoses Diagnosis Encounter For COVID-19 Vaccine Immunizat ion documented in this encounter Additional Health Concerns Assessment Noted Time PHQ-9 Depression Total Score: 4 04/16/2019 10:58 AM CS T documented as of this encounter Care Teams Nurse Auditor Relationship Specialty Start Date End Date Yolanda Colón APRN, C.N.P. PCP - General 09/08/16 documented as of this encounter
--- OUTSIDE RECORDS SUMMARY | 2021-12-28 09:58 | XMS_ITS | Encounter Summary ---
:1945 Author Organization [facility] Address [address] [place] [address] Care Team Providers Name Role Phone Yolanda Colón APRN, C.N.P. Primary Care Provider [phone] Reason for Referral Outpatient (Routine) - Closed Specialty Diagnoses / Procedures Referred By Contact Refer red To Contact Family Medicine Yolanda Colón APRN, [facility] C.N.P. [address] [place] [address] Referral ID Status Reason Start Date Expiration Date Visits Requ ested Visits Authorized [id number] Closed 01/07/2020 01/06/2021 1 1 utpatient (Routine) - Closed Specialty Diagnoses / Procedures Referred By Contact Refer red To Contact Diagnoses Edema Pedal Yolanda Colón APRN, C.N.P. [address] [place] [address] Referral ID Status Reason Start Date Expiration Date Visits Requ ested Visits Authorized [id number] Closed 01/07/2020 01/06/2021 1 1 Reason for Visit Reason Comments Edema Right lower leg edema and op en sore Encounter Details Date Type Department Care Team Description 01/07/2020 Office Visit Department of Yolanda Craven ma (Primary Dx); Medicine in [place], STONE SPLITTER, C.N.P. Hypertension Essential Primary; [place], [place] [address] Wound Lower Leg Open Initial Right [address] [place], [place] [phone] Social History Tobacco Use Types Packs/Day Years [...] or relatives? How often do you attend sabianism or 1 to 4 times per year 11/2019 baptist services? 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 - 01/07/2020 2:30 PM CDT SUBJECTIVE CHIEF COMPLAINT / REASON FOR VISIT Cristi Macdonald is a 74 y.o. male who presents for evaluation of Edema (Right lower leg edema and open sore) HISTORY OF PRESENT ILLNESS Medhat returns today for continued right lower leg edema and a new open sore. He was working outside and bumped his dave causing an open wound. He is having a difficult time getting it to heal. He is keeping it covered with a dressing and using Salazar ointment. He states it does cause some pain but notices no increased redness or increased swelling in his leg. He continues to complain of right lower leg swelling. He has not been wrapping his legs with Dragan wrap however when he did he notice that it did improve his swelling but just temporarily and as soon as he took off the wraps he would become swollen again so he stopped using them. He denies numbness in his feet but does feel like he has decreased sensation. Denies fever, chills or sweats. Denies pain in the calf. Because of his chronic back pain, he does not elevate his legs at rest and is unable to sit in his recliner. Denies any shortness of breath at rest or with exertion. Reports no orthopnea. Denies chest pain or overall fatigue. He was started on spironolactone and feels that the 1st 2-3 weeks of this was very effective in relieving the swelling. Reports that the affect of the spironolactone has worn off and is no longer seem to be helping. Negative ultrasound of his lower extremity for DVT on 11/15/2019. The following portions of the patient's history [...] mouth daily. 90 capsule 3 ??? [DISCONTINUED] spironolactone (ALDACTONE) 25 mg tablet Take 1 tablet (25 mg total) by mouth daily. 90 tablet 0 ??? hydroCHLOROthiazide (HYDRODIURIL) 25 mg tablet Take 25 mg by mouth daily. ??? [DISCONTINUED] buPROPion (Wellbutrin SR) 150 mg 12 hr tablet Take 150 mg by mouth 2 (two) times a day. ??? [DISCONTINUED] eeycfffxjoypwsz-HX-ikhsDSJnpgx (ROBITUSSIN-PE) 30-10-100 mg/5 mL solution Take 10mL by mouth every 4 (four) hours as needed for allergies. No current facility-administered medications on file prior to visit. OBJECTIVE BP 132/76 (BP Location: Left arm, Patient Position: Sitting, Cuff Size: Large) Pulse 84 Temp 37.2 ??C (Temporal) Ht 176 cm Wt (!) 155 kg SpO2 94% BMI 50.08 kg/m?? PHYSICAL EXAM General: Patient is alert, oriented x 3 and in no acute distress. HEENT: Conjunctiva, TMs, nasal mucosa are clear. Pharynx is clear without tonsillar adenopathy or exudate. Neck is nontender without cervical adenopathy. CHEST: Respirations are equal and nonlabored. Lungs are clear to auscultation without wheeze, rhonchi or rale. CARDIOVASCULAR: Heart rate and rhythm are regular without murmur. No carotid bruit, JVD. Lower extremities: 1+ nonpitting edema in the left lower extremity. Discoloration from chronic venous stasis noted bilaterally. 2+ pitting edema right lower extremity. The right lower leg is erythematous from the ankle to approximately mid calf, warm to touch. There is no streaking. Sensation is appropriate bilaterally. A 2 in diameter open skin abrasion is noted with a serous drainage on the distal anterior aspect of the leg. No odor is present. The lower leg is nontender to palpation, negative Homans sign. Pedal pulse present, negative Homans sign. ASSESSMENT / PLAN 1. Hypertension Essential Primary In good control with current medications. - Basic Metabolic Panel 2. Edema Pedal/venous stasis We discussed the persistent right sided edema and at this time I did recommend that he proceed with the arterial ultrasound to assess for any circulation deficits. Will continue on the spironolactone but increased to 50 mg daily. BMP today. Advised to continue with the Dragan wraps to wrap the lower legs or Deidre hose for compression, encouraged to elevate legs at rest. Follow-up in 1 week to review the ultrasound results. - External referral ancillary (non[place]) 3. Wound right lower extremity If I do not suspect that there is a cellulitis present however, given the increased redness and openwound I did go ahead and begin doxycycline 100 mg twice a day for the next 10 days. He should keep the area clean and dry with dressing changes daily. Follow-up with me in 1 week. Watch for signs and sy mptoms of increasing redness, pain, swelling and follow-up at that time if needed. documented in this encounter Plan of Treatment Upcoming Encounters Date Type Specialty Care Team Description 02/11/2022 Appointment Laboratory Medicine Neli Hearn M.D. [address] [facility] [place] [phone] (Wo rk) 02/14/2022 Office Visit Family Medicine Lilli Hearn M.D. [address] [facility] [place] [phone] (Wo rk) Scheduled Referrals Name Type Priority Associated Diagnoses [facility] Outpatient Referral Routine Expec deidre: office visit 01/14/2020 (clinic) (Approximate), Expires: 01/06/2023 documented as of this encounter Procedures Procedure Name Priority Date/Time Associated Diagnosis Comme nts BASIC METABOLIC Routine 01/07/2020 3:22 PM Hypertension Result s for this PANEL, S/P CDT Essential Primary procedure are in the results section. documented in this encounter Results (ABNORMAL) Basic Metabolic Panel (01/07/2020 3:22 PM CDT) athologist Signature Potassium, P 4.4 3.6 - [...] CDT eGFR-Black/Afric 89 >=60 01/07/2020 [facility] an Marshallese mL/min/BSA 8:09 PM CDT Comment: ----ADDITIONAL INFORMATION---- [...] Laterality Blood (Blood, 01/07/2020 3:22 PM 01/07/20 7:38 Venous) CDT PM CDT Yolanda Colón APRN, C.N.P. LAB BLOOD ADD-ON Performing Organization Address City/State/ZIP Code Phon e Number [facility]- [address] [place] [address] [address] [facility] [place] [address] [facility] [address] [place] documented in this encounter Visit Diagnoses Diagnosis Edema Pedal - Primary Hypertension Essential Primary Wound Lower Leg Open Initial Right documented in this encounter Additional Health Concerns Assessment Noted Time PHQ-9 Depression Total Score: 4 04/16/2019 10:58 AM CS T documented as of this encounter Care Teams Senior Information Developer Relationship Specialty Start Date End Date Yolanda Colón APRN, C.N.P. PCP - General 09/08/16 documented as of this encounter
--- OUTSIDE RECORDS SUMMARY | 2021-12-28 09:59 | XMS_ITS | Encounter Summary ---
:1945 Author Organization [facility] Address [address] [place] [address] Care Team Providers Name Role Phone Yolanda Colón APRN, C.N.P. Primary Care Provider [phone] Encounter Details Date Type Department Care Team Description 06/14/2019 Orders Only Department of Family Yolanda Colón Hyp ertension Essential Medicine in AMBER Hart, C.N.P. Primary (Primary Dx) Terri Michael a [address] [place] [phone] Social History Tobacco Use Types Packs/Day Years [...] or relatives? How often do you attend adventism or 1 to 4 times per year 11/2019 mu-ism services? 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 [address] [place] [phone] (Wo rk) 02/14/2022 Office Visit Family Medicine Lilli Hearn M.D. [address] [place] [phone] (Wo rk) documented as of this encounter Results (ABNORMAL) Basic Metabolic Panel (07/16/2019 8:53 AM CDT) P athologist Signature Potassium, P 4.0 3.6 - 5.2 07/16/2019 [facility] mmol/L 12:06 PM CDT Sodium, P 139 135 - 145 07/16/2019 [facility] mmol/L 12:06 PM CDT Chloride, P 100 98 - 107 07/16/2019 [facility] mmol/L 12:06 PM CDT Bicarbonate, P 27 22 - 29 07/16/2019 [facility] mmol/L 12:06 PM CDT Anion Gap, P 12 7 - 15 07/16/2019 [facility] 12:06 PM CDT BUN (Blood Urea 18 8 - 24 07/16/2019 [facility] Nitrogen), P mg/dL 12:06 PM CDT Creatinine 0.99 0.74 - 07/16/2019 [facility] 1.35 mg/dL 12:06 PM CDT eGFR-Black/Afric 88 >=60 07/16/2019 [facility] an Australian mL/min/BSA 12:06 PM CDT Comment: ----ADDITIONAL INFORMATION---- Estimated GFR calculated using the 2009 CKD_EPI creatinine equation. eGFR Non-Black/ 76 >=60 mL/min/BSA 07/16/2019 12:06 PM CDT [facility] Comment: ----ADDITIONAL INFORMATION---- Estimated GFR calculated using the 2009 CKD_EPI creatinine equation. Calcium, Total, P 9.7 8.8 - 10.2 mg/dL 07/16/2019 12:0 6 PM CDT NPR[facility] Glucose, P 171 (H) 70 - 140 mg/dL 07/16/2019 12:06 PM CDT NPR[facility] Specimen Anatomical Collection Method Collection Time Receive d Time (Source) Location / / Volume Laterality Blood (Blood, 07/16/2019 8:53 AM 07/16/19 20 Venous) CDT 11:21 AM CDT Yolanda Colón APRN, C.N.P. LAB BLOOD ADD-ON Performing Organization Address City/State/ZIP Code Phon e Number [facility] [address] [place], [place] [address] [place] [address] [place] [address] [place] documented in this encounter Visit Diagnoses Diagnosis Hypertension Essential Primary - Primary documented in this encounter Additional Health Concerns Assessment Noted Time PHQ-9 Depression Total Score: 4 04/16/2019 10:58 AM CS T documented as of this encounter Care Teams Site Surveyor Relationship Specialty Start Date End Date Yolanda Colón APRN, C.N.P. PCP - General 09/08/16 documented as of this encounter
--- OUTSIDE RECORDS SUMMARY | 2021-12-28 09:59 | XMS_ITS | Encounter Summary ---
:1945 Author Organization [facility] Address [address] [place] [address] Care Team Providers Name Role Phone Yolanda Colón APRN, C.N.P. Primary Care Provider [phone] Reason for Visit Reason Comments Med Refill Encounter Details Date Type Department Care Team Description 05/28/2018 Refill Department of Family Medicine Yolanda Colón APRN, Med Refill in [facility] thony C.N.P. [address] [place], [place] [phone] [place] [phone] (Wo rk) Social History Tobacco Use Types [...] or relatives? How often do you attend advent or 1 to 4 times per year 11/2019 caodaism services? 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 - 05/28/2018 4:07 PM CST Last seen in clinic 04/11/2018 STANT BASKETBALL COACH documented in this encounter Plan of Treatment Upcoming Encounters Date Type Specialty Care Team Description 02/11/2022 Appointment Laboratory Medicine Neli Hearn M.D. [address] [place] [phone] (Wo rk) 02/14/2022 Office Visit Family Medicine Lilli Hearn M.D. [address] [place] [phone] (Wo rk) documented as of this encounter Visit Diagnoses Not on filedocumented in this encounter Additional Health Concerns Assessment Noted Time PHQ-9 Depression Total Score: 10 01/09/2018 10:48 AM C DT documented as of this encounter Care Teams Underpresser Hand Relationship Specialty Start Date End Date Yolanda Colón APRN, C.N.P. PCP - General 09/08/16 documented as of this encounter
--- OUTSIDE RECORDS SUMMARY | 2021-12-28 09:59 | XMS_ITS | Encounter Summary ---
:1945 Author Organization [facility] Address [address] [place] [address] Care Team Providers Name Role Phone Yolanda Colón APRN, C.N.P. Primary Care Provider [phone] Reason for Referral Outpatient (Routine) - Closed Specialty Diagnoses / Procedures Referred By Contact Refer red To Contact Family Medicine Diagnoses Edema Leg Hypertension Essential Primary Meri Estevez APRN, [facility] Region C.N.P. [address] [place] [address] Referral ID Status Reason Start Date Expiration Date Visits Requ ested Visits Authorized [id number] Closed 11/12/2019 11/11/2020 1 1 Outpatient (Routine) - Closed Specialty Diagnoses / Procedures Referred By Contact Refer red To Contact Diagnoses Edema Leg Hypertension Essential Primary [facility] Procedures US Lower Extremity Veins Right C.N.P. [address] [place] [address] Referral ID Status Reason Start Date Expiration Date Visits Requ ested Visits Authorized [id number] Closed 11/12/2019 11/11/2020 1 1 Reason for Visit Reason Comments Other right leg swelling, needs re peat blood work Encounter Details Date Type Department Care Team Description 11/12/2019 Office Visit Department of Family Estevez, Sanford Brown (Primary Dx); Medicine in CRYOGENICS ENGINEER, C.N.P. Hypertension Essential Primary Terri Kelley [address] [place], [place] [phone] Social History Tobacco Use Types Packs/Day Years [...] 1 to 4 times per year 11/2019 yazidism services? 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 - 11/12/2019 3:30 PM CDT SUBJECTIVE CHIEF COMPLAINT / REASON FOR VISIT Other (right leg swelling, needs repeat blood work) HISTORY OF PRESENT ILLNESS Cristi Macdonald is a 74 y.o. male who presents for evaluation of right leg swelling. Patient states over the last few weeks he has noticed increased swelling of the right leg. There is no significant pain. He did bump his dave and we opened up in old wound in June. He states it is just now finally healed. He was getting some serous drainage but that has stopped now. He states it always seems to be the right legs worse than the left with swelling. He has been taking the hydrochlorothiazide but feels it is not as effective as when it was in a combo pill with the losartan. He still taking losartan as well. Review of Systems Denies chest pain, chest pressure, lightheadedness, dizziness, dyspnea. Patient is still able to walk out to the garden and do all his activities of daily living that he normally does. No fevers or chills. The following portions of the patient's history were reviewed and updated as appropriate: allergies,current medications, problem list, surgical history and social history OBJECTIVE BP 130/74 Pulse 85 Temp 36.5 ??C (Temporal) Ht 176 cm Wt (!) 152 kg SpO2 94% BMI 48.91 kg/m?? PHYSICAL EXAM General Appearance: awake, alert, oriented, in no acute distress Skin: skin color, texture, turgor are normal, Patient does have venous stasis changes of the lower extremities. He does have scarring from psoriasis in his lower dave. The right dave on the medial aspect does show some wounds that are newly healed. No evidence of infection. Lungs: Normal expansion. Clear to auscultation. No rales, rhonchi, or wheezing. Heart: Heart sounds are normal. Regular rate and rhythm without murmur, gallop or rub. Right leg 3+ edema in left leg 1 to 2+ edema. ASSESSMENT / PLAN 1. Edema Leg 2. Hypertension Essential Primary Given the unilateral leg edema we will get an ultrasound to rule out DVT. Will also get a BMP, and BNP. If BNP is elevated I would recommend an echo. Patient will discontinue hydrochlorothiazide and start furosemide 40 mg daily. I would like the patient to be re-evaluated in 2 weeks. Discussed signs and symptoms that warrant urgent evaluation. - Basic Metabolic Panel - US Lower Extremity Veins Right; Future - NT-Pro B-Type Natriuretic Peptide (BNP) - furosemide (LASIX) 40 mg tablet; Take 1 tablet (40 mg total) by mouth daily. Dispense: 30 tablet; Refill: 11 - Family Medicine office visit (clinic); Future All of patient's questions were answered. Patient is agreeable with plan outlined above. Patient will return to clinic in 2 weeks or sooner if needed. documented in this encounter Plan of Treatment Upcoming Encounters Date Type Specialty Care Team Description 02/11/2022 Appointment Laboratory Medicine Neli Hearn M.D. [address] [place] [phone] (Wo rk) 02/14/2022 Office Visit Family Medicine Lilli Hearn M.D. [address] [place] [phone] (Stephon rk) Scheduled Referrals Name Type Priority Associated Diagnoses Order S [facility] Family Medicine Outpatient Referral Routine Edema Leg Expected: office visit Hypertension 11/26/2019 (clinic) Essential Primary (Approxima te), Expires: 11/11/2022 documented as of this encounter Procedures Procedure Name Priority Date/Time Associated Comments Diagnosis NT-PRO B-TYPE Routine 11/12/2019 4:02 PM Edema Leg Results for this NATRIURETIC PEPTIDE CDT Hypertension procedur e are in (BNP), S Essential Primary the result s section. documented in this encounter Results US [...] 1. Negative for Acute DVT. Meri Estevez APRN C.N.P. IMG US PROCEDURES NT-Pro B-Type Natriuretic Peptide (BNP) (11/12/2019 4:02 PM CDT) athologist Signature NT-Pro BNP 5 <=104 pg/mL 11/13/2019 NPRG 12:36 PM CDT Comment: NT-proBNP values less than [...] Biotin has been identified by the josue andersonr as a potential interfering substance. ??Higher concentr ations of biotin may be found in multivitamins, hair/nail supple ments, and workout supplements. ??If the result does not ma tch clinical observations, repeat testing after patient refrains fr om the use of supplements for at least 12 hours. Specimen Anatomical Collection Method Collection Time Receive d Time (Source) Location / / Volume Laterality Blood (Blood, 11/12/2019 4:02 PM 11/13/19 20 Venous) CDT 11:55 AM CDT Meri Estevez APRN, C.N.P. LAB BLOOD ADD-ON Performing Organization Address City/State/ZIP Code Phon e Number [facility]- [address] [place], [place] [address] [place] [address] [place] [address] documented in this encounter Visit Diagnoses Diagnosis Edema Leg - Primary Hypertension Essential Primary Edema Leg Hypertension Essential Primary documented in this encounter Additional Health Concerns Assessment Noted Time PHQ-9 Depression Total Score: 4 04/16/2019 10:58 AM CS T documented as of this encounter Care Teams Demand Generation Manager Relationship Specialty Start Date End Date Yolanda Colón APRN, C.N.P. PCP - General 09/08/16 documented as of this encounter
--- OUTSIDE RECORDS SUMMARY | 2021-12-28 09:59 | XMS_ITS | Encounter Summary ---
:1945 Author Organization [facility] Address [address] [place] [address] Care Team Providers Name Role Phone Yolanda Colón APRN, C.N.P. Primary Care Provider [phone] Reason for Visit Reason Comments Med Refill lab Encounter Details Date Type Department Care Team Description 04/16/2019 Office Visit Department of [facility] Yolanda Colón Hyp ertension Essential Primary (Primary Dx); Medicine in AMBER Hart, C.N.P. [facility] [address] Obstructive Sleep Apnea Adult; [address] [place], [place]; [place] [address] Benign Prostatic Hyperplasia Without Obs truction; [id number] Morbid Obesity Body Mass Ind ex Greater Than Or Equal To 40 Adult ([facility]) Social History Tobacco Use Types Packs/Day Years [...] 1 to 4 times per year 11/2019 congregational services? 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 encounter Last Filed Vital Signs Vital Sign Reading Time Taken Comments Blood Pressure 135/76 04/16/2019 10:05 AM LABELING SPECIALIST Pulse 79 04/16/2019 10:05 AM LABELING SPECIALIST Temperature 36.6 ??C (97.9 ??F) 04/16/2019 10:05 AM LABELING SPECIALIST Respiratory Rate 20 04/16/2019 10:05 AM LABELING SPECIALIST Oxygen Saturation 94% 04/16/2019 10:05 AM LABELING SPECIALIST Inhaled Oxygen Concentration - - Weight 147 kg (323 lb 3.2 oz) 04/16/2019 10:05 AM LABELING SPECIALIST Height 176 cm (5' 9.29) 04/16/2019 10:05 AM LABELING SPECIALIST Body Mass Index 47.33 04/16/2019 10:05 AM LABELING SPECIALIST documented in this encounter Progress Notes Yolanda Colón, AMBER, C.N.P. - 04/16/2019 10:15 AM CST SUBJECTIVE CHIEF COMPLAINT / REASON FOR VISIT Cristi Macdonald is a 73 y.o. male who presents for evaluation of Med Refill (lab) HISTORY OF PRESENT ILLNESS 73-year-old pleasant male is here today for his medication refill visit. He denies new concerns but he does note that he has several ???fatty tumors ???that have developed under his chin and neck. Theydo not cause him any discomfort but occasionally they bother when he is shaving and he'll notice a pulling sensation. Denies difficulty swallowing. He has a history of BPH, benign essential hypertension, anxiety and he states they are all well controlled with his current medications. He declines any immunizations today. The following portions of the patient's history were reviewed and updated as appropriate: allergies,current medications, family history, medical history, social history, surgical history and problem list. REVIEW OF SYSTEMS REVIEW OF SYSTEMS General: Denies fevers, chills or sweats. No weight loss or weight gain. HEENT: Denies changes in vision. Nose: No nasal congestion, sore throat or difficulty swallowing. Cardiovascular: Denies chest pain, palpitations or SOB on exertion. He reports no lower extremity edema. Respiratory: Denies cough or shortness of breath. Gastrointestinal: Denies abdominal pain, heartburn, N/V/D. No melena or hematochezia. Genitourinary: Denies dysuria, hematuria, difficulty starting or stopping urinary stream. Denies penile discharge or pain in groin. Musculoskeletal: Denies arthralgias or swollen joints. Neuro: No dizziness, vertigo or frequent headaches. He describes no deficits in sensation or strength of the extremities. Skin: Denies rash or recent skin changes. Psych: Denies feeling of depression, uncontrolled anxiety, or suicidal ideations. MEDICATIONS Current Outpatient Medications on File Prior to Visit Medication Sig Dispense Refill ??? aspirin [address] tablet Take 81 mg by mouth. ??? fluticasone propionate (FLONASE) 50 mcg/actuation nasal spray 1 SPRAY NASAL DAILY. (Patient taking differently: as needed. ) 48 g 11 ??? GLUCOSAMINE/CHONDR NOONAN A SOD (OSTEO BI-FLEX ORAL) Take 1 tablet by mouth 2 (two) times a day. ??? MULTIVITAMIN WITH MINERALS ORAL Take 1 tablet by mouth daily. ??? omega-3 fatty acids (FISH OIL) 500 mg capsule Take 2 tablets by mouth daily. ??? omeprazole (PriLOSEC) [address] capsule TAKE ONE (1) CAPSULE BY MOUTH DAILY 90 capsule 0 ??? [DISCONTINUED] amLODIPine (NORVASC) 5 mg tablet TAKE 1 TABLET BY MOUTH ONCE DAILY 90 tablet 0 ??? [DISCONTINUED] buPROPion XL (WELLBUTRIN XL) 300 mg 24 hr tablet TAKE 1 TABLET BY MOUTH EVERY DAY90 tablet 3 ??? [DISCONTINUED] hydroCHLOROthiazide (HYDRODIURIL) 25 mg tablet TAKE 1 TABLET EVERY DAY (WITH LOSARTAN) ??? [DISCONTINUED] losartan (COZAAR) 100 mg tablet Take 100 mg by mouth daily. ??? [DISCONTINUED] naproxen (NAPROSYN) 500 mg tablet TAKE ONE (1) TABLET BY MOUTH TWICE DAILY NEEDED FOR PAIN (Patient taking differently: Takes daily ) 180 tablet 3 ??? [DISCONTINUED] pravastatin (PRAVACHOL) 80 mg tablet TAKE ONE (1) tablet BY MOUTH AT BEDTIME 90 tablet 3 ??? [DISCONTINUED] terazosin (HYTRIN) 1 mg capsule TAKE ONE (1) CAPSULE BY MOUTH AT BEDTIME 90 capsule 3 ??? buPROPion (Wellbutrin SR) 150 mg 12 hr tablet Take 150 mg by mouth 2 (two) times a day. ??? loratadine (CLARITIN) 10 mg tablet Take 10 mg by mouth as needed for allergies. ??? wfiktbmqwytdvlz-EF-yeciEAErmve (ROBITUSSIN-PE) 30-10-100 mg/5 mL solution Take 10 mL by mouth every 4 (four) hours as needed for allergies. ??? [DISCONTINUED] losartan-hydroCHLOROthiazide (HYZAAR) 100-25 mg per tablet TAKE 1 TABLET BY MOUTHEVERY DAY (Patient not taking: Reported on 04/16/2019) 90 tablet 0 No current facility-administered medications on file prior to visit. OBJECTIVE BP 135/76 Pulse 79 Temp 36.6 ??C Resp 20 Ht 176 cm Wt (!) 147 kg SpO2 94% BMI 47.33 kg/m?? PHYSICAL EXAM General: Patient is alert, oriented x 3 and in no acute distress. HEENT: Conjunctiva, TMs, nasal mucosa are clear. Pharynx is clear without tonsillar adenopathy or exudate. Neck is nontender without cervical adenopathy. Three small soft tissue masses approximately 1 in in diameter noted on the left side of his neck directly under his chin and on the right side of his thyroid. There freely movable, nontender to palpation without erythema. CHEST: Respirations are equal and nonlabored. Lungs are clear to auscultation without wheeze, rhonchi or rale. CARDIOVASCULAR: Heart rate and rhythm are regular without murmur. ABD: Abdomen is soft and nontender without palpable mass or organomegaly. Bowel sounds are active. No rebound or guarding. ASSESSMENT / PLAN 1. Hypertension Essential Primary Blood pressure at goal: Yes Medications recommendations: Continue on losartan 100 and HCTz 50, amlodipine 5mg qd Labs: BMP Goal blood pressure was discussed based on his current comorbidities. He was encouraged to take antihypertensive medications as ordered. Side effects of medications were discussed. Recommendations of the [place] [employer] were discussed. Lifestyle modifications were encouraged including: regular aerobic exercise for 30 minutes most days of the week, adhering to a less than 2 gram sodium diet, eating a healthy diet, limiting alcohol intake and trying to maintain a healthy body weight. Follow up: 1 years. - Basic Metabolic Panel 2. Hyperlipidemia Continue on pravastatin 80 mg daily, low-fat low-cholesterol diet and regular exercise advised. - Lipid Panel 3. Obstructive Sleep Apnea Adult Stable with CPAP 4. Lipoma Discussed probable benign nature of these soft tissue masses, however since they are new and growing, I did recommend an ultrasound. Patient was in agreement with this plan. - US Head Neck Soft Tissue; Future 5. Benign Prostatic Hyperplasia Without Obstruction PSA level today, refill prazosin. - PSA (Prostate-Specific Antigen) Screen 6. Morbid Obesity Body Mass Index Greater Than Or Equal To 40 Adult (HCC) Low-fat low-cholesterol diet advised. Portion control, regular exercise encouraged. LING SPECIALIST documented in this encounter Plan of Treatment Upcoming Encounters Date Type Specialty Care Team Description 02/11/2022 Appointment Laboratory Medicine Neli Hearn M.D. [address] [place] [phone] (Stephon caldera) 02/14/2022 Office Visit Family Medicine Lilli Hearn M.D. [address] [place] [phone] (Stephon caldera) documented as of this encounter Procedures Procedure Name Priority Date/Time Associated Diagnosis Comme nts PROSTATE-SPECIFIC Routine 04/16/2019 11:23 Benign Prostatic Re sults for this AG (PSA) SCRN, S AM LABELING SPECIALIST Hyperplasia Without proc edure are in Obstruction the results section. LIPID PANEL, S Routine 04/16/2019 10:53 Hyperlipidemia Results for this AM LABELING SPECIALIST procedure are i n the results section. BASIC METABOLIC Routine 04/16/2019 10:53 Hypertension Essentia l Results for this PANEL, S/P AM LABELING SPECIALIST Primary procedure are i n the results section. documented in this encounter Results US Head Neck Soft Tissue (04/18/2019 9:11 AM LABELING SPECIALIST) Anatomical Region Laterality Modality Head and Neck, Ultrasound RST LOS, Ultrasound ARZ LOS, N/A Ultrasound Ultrasound FLA LOS Specimen (Source) Anatomical Collection Method Collection Time Re ceived Time Location / / Volume Laterality 04/18/2019 9:13 AM LABELING SPECIALIST Impressions 04/18/2019 9:25 AM LABELING SPECIALIST Multiple small probable benign lipomas identified in the neck bilaterally. Narrative 04/18/2019 9:25 AM LABELING SPECIALIST EXAM: US HEAD NECK SOFT TISSUE COMPARISON: None FINDINGS: Ultrasound examination of the neck bilaterally demonstrates multiple probable benign lipomas in the neck. In the right midneck region 3 the lipoma measures 1.0 x 0.9 x 0.4 cm. In the ante rior neck at midline the lipoma measures 1.7 x 1.5 x 0.6 cm. There are 3 lipomas in the left neck largest in zone 3 measuring 1.8 x 1.6 x 0.7 cm. Procedure Note Flo Davila M.D. - 04/18/2019For matting of this note might be different from the original. EXAM: US HEAD NECK SOFT TISSUE COMPARISON: None FINDINGS: Ultrasound examination of the neck bilaterally demonstrates multiple probable benign lipomas in the neck. In the right midneck region 3 the lipoma measures 1.0 x 0.9 x 0.4 cm. In the ante rior neck at midline the lipoma measures 1.7 x 1.5 x 0.6 cm. There are 3 lipomas in the left neck largest in zone 3 measuring 1.8 x 1.6 x 0.7 cm. IMPRESSION: Multiple small probable benign lipomas i dentified in the neck bilaterally. Yolanda Colón APRN, C.N.P. IMG US PROCEDURES PSA (Prostate-Specific Antigen) Screen (04/16/2019 11:23 AM LABELING SPECIALIST) athologist Signature Prostate-Specif 3.0 <=6.5 ng/mL 04/16/2019 NPRG ic Ag 4:39 PM LABELING SPECIALIST Comment: Biotin has been identified by the josue lobato as a potential interfering substance. ??Higher concentr ations of biotin may be found in multivitamins, hair/nail supple ments, and workout supplements. ??If the result does not [facility] clinical observations, repeat testing after patient refrains fr om the use of supplements for at least 12 hours. ----ADDITIONAL INFORMATION---- The testing method is an electrochemilum inescence assay manufactured by [employer] and performed on the Modular or Morales system . Values obtained with different assay met hods or kits may be different and cannot be used inte rchangeably. Test results cannot be interpreted as ab solute evidence for the presence or absence of malignant disease. Specimen Anatomical Collection Method Collection Time Receive d Time (Source) Location / / Volume Laterality Blood (Blood, 04/16/2019 11:23 04/16/2019 3:38 Venous) AM LABELING SPECIALIST PM LABELING SPECIALIST Yolanda Colón APRN C.N.P. LAB BLOOD ADD-ON Performing Organization Address City/State/ZIP Code Phon e Number [facility]- [address] [place], [place] [address] [address] [place] [address] (ABNORMAL) Lipid Panel (04/16/2019 10:53 AM LABELING SPECIALIST) P athologist Signature Cholesterol, 190 mg/dL 04/16/2019 NPRG Total 4:12 PM LABELING SPECIALIST Comment: ----REFERENCE VALUE---- Desirable: < 200 Borderline high: 200 - 239 High: > or = 240 Triglycerides 163 (H) mg/dL 04/16/2019 4:12 PM LABELING SPECIALIST NPR G Comment: ----REFERENCE VALUE---- Normal: <150 Borderline high: 150-199 High: 200-499 Very high: > or =500 Cholesterol, HDL, S 42 >=40 mg/dL 04/16/2019 4:12 PM LABELING SPECIALIST NPRG Calculated LDL 115 mg/dL 04/16/2019 4:12 PM LABELING SPECIALIST MANAGER PATHOLOGY RG Comment: ----REFERENCE VALUE---- Desirable: <100 Above Desirable: 100-129 Borderline high: 130-159 High: 160-189 Very high: > or =190 Cholesterol, Non-HDL, Calculated 148 mg/dL 020 4:12 PM LABELING SPECIALIST NPRG Comment: ----REFERENCE VALUE---- Desirable: <130 Above Desirable: 130-159 Borderline high: 160-189 High: 190-219 Very high: > or =220 Specimen Anatomical Collection Method Collection Time Receive d Time (Source) Location / / Volume Laterality Blood (Blood, 04/16/2019 10:53 04/16/2019 3:38 Venous) AM LABELING SPECIALIST PM LABELING SPECIALIST Yolanda Colón APRN, C.N.P. LAB BLOOD ADD-ON Performing Organization Address City/State/ZIP Code Phon e Number [facility]- [address] [place], [place] [address] [address] [facility] NPRG [facility] [address] (ABNORMAL) Basic Metabolic Panel (04/16/2019 10:53 AM LABELING SPECIALIST) P athologist Signature Potassium, S 3.6 3.6 - 5.2 04/16/2019 NPRG mmol/L 4:12 PM LABELING SPECIALIST Sodium, S 139 135 - 145 04/16/2019 NPRG mmol/L 4:12 PM LABELING SPECIALIST Chloride, S 98 98 - 107 04/16/2019 NPRG mmol/L 4:12 PM LABELING SPECIALIST Bicarbonate, S 26 22 - 29 04/16/2019 NPRG mmol/L 4:12 PM LABELING SPECIALIST Anion Gap 15 7 - 15 04/16/2019 NPRG 4:12 PM LABELING SPECIALIST BUN (Blood Urea 11 8 - 24 04/16/2019 NPRG Nitrogen), S mg/dL 4:12 PM LABELING SPECIALIST Creatinine 1.01 0.74 - 04/16/2019 NPRG 1.35 mg/dL 4:12 PM LABELING SPECIALIST eGFR-Non 74 >=60 04/16/2019 NPRG Black/ mL/min/BSA 4:12 PM LABELING SPECIALIST [place] Comment: ----ADDITIONAL INFORMATION---- Estimated GFR calculated using the 2009 CKD_EPI creatinine equation. eGFR-Black/ 86 >=60 mL/min/BSA 2019 4:12 PM LABELING SPECIALIST NPRG Comment: ----ADDITIONAL INFORMATION---- Estimated GFR calculated using the 2009 CKD_EPI creatinine equation. Calcium, Total, S 9.5 8.8 - 10.2 mg/dL 04/16/2019 4:12 PM LABELING SPECIALIST NPRG Glucose, S 157 (H) 70 - 140 mg/dL 04/16/2019 4:12 PM LABELING SPECIALIST N PRG Specimen Anatomical Collection Method Collection Time Receive d Time (Source) Location / / Volume Laterality Blood (Blood, 04/16/2019 10:53 04/16/2019 3:38 Venous) AM LABELING SPECIALIST PM LABELING SPECIALIST Yolanda Colón APRN, C.N.P. LAB BLOOD ADD-ON Performing Organization Address City/State/ZIP Code Phon e Number [facility]- [address] [place], [place] [address] [address] [facility] NPR[facility] [address] documented in this encounter Visit Diagnoses Diagnosis Hypertension Essential Primary - Primary Hyperlipidemia Obstructive Sleep Apnea Adult Lipoma Benign Prostatic Hyperplasia Without Obs truction Morbid Obesity Body Mass Index Greater T lazaro Or Equal To 40 Adult (HCC) Lipoma documented in this encounter Additional Health Concerns Assessment Noted Time PHQ-9 Depression Total Score: 4 04/16/2019 10:58 AM CS T documented as of this encounter Care Teams Government Affairs Specialist Relationship Specialty Start Date End Date Yolanda Colón APRN, C.N.P. PCP - General 09/08/16 documented as of this encounter
--- OUTSIDE RECORDS SUMMARY | 2021-12-28 09:59 | XMS_ITS | Encounter Summary ---
:1945 Author Organization [facility] Address [address] [place] [address] Care Team Providers Name Role Phone Yolanda Colón APRN, C.N.P. Primary Care Provider [phone] Encounter Details Date Type Department Care Team Description 07/02/2019 Orders Only Department of Family Yolanda Colón, Medicine in [facility] AMBER, C. N.P. [place] [address] [facility] [address] [place] [phone] (Wo rk) Social History Tobacco Use Types [...] or relatives? How often do you attend latter day or 1 to 4 times per year 11/2019 evangelical services? 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 [address] [place] [phone] (Wo rk) 02/14/2022 Office Visit Family Medicine Lilli Hearn M.D. [address] [place] [phone] (Wo rk) documented as of this encounter Visit Diagnoses Not on filedocumented in this encounter Additional Health Concerns Assessment Noted Time PHQ-9 Depression Total Score: 4 04/16/2019 10:58 AM CS T documented as of this encounter Care Teams Machine Puller And Laster Relationship Specialty Start Date End Date Yolanda Colón APRN, C.N.P. PCP - General 09/08/16 documented as of this encounter
--- OUTSIDE RECORDS SUMMARY | 2021-12-28 09:59 | XMS_ITS | Encounter Summary ---
:1945 Author Organization [facility] Address [address] [place] [address] Care Team Providers Name Role Phone Yolanda Colón APRN, C.N.P. Primary Care Provider [phone] Reason for Visit Reason Comments Med Refill Encounter Details Date Type Department Care Team Description 04/28/2018 Refill Department of Family Medicine Yolanda Colón APRN, Med Refill in [facility] thony C.N.P. [address] [place], [place] [phone] [place] [phone] (Wo rk) Social History Tobacco Use Types [...] or relatives? How often do you attend christianity or 1 to 4 times per year 11/2019 adventist services? 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 [address] [place] [phone] (Wo rk) 02/14/2022 Office Visit Family Medicine Lilli Hearn M.D. [address] [place] [phone] (Wo rk) documented as of this encounter Visit Diagnoses Not on filedocumented in this encounter Additional Health Concerns Assessment Noted Time PHQ-9 Depression Total Score: 10 01/09/2018 10:48 AM C DT documented as of this encounter Care Teams Field Technical Assistant Relationship Specialty Start Date End Date Yolanda Colón APRN, C.N.P. PCP - General 09/08/16 documented as of this encounter
--- OUTSIDE RECORDS SUMMARY | 2021-12-28 09:59 | XMS_ITS | Encounter Summary ---
:1945 Author Organization [facility] Address [address] [place] [address] Care Team Providers Name Role Phone Yolanda Colón APRN, C.N.P. Primary Care Provider [phone] Reason for Visit Reason Comments Med Refill Encounter Details Date Type Department Care Team Description 06/12/2018 Refill Department of Family Medicine Yolanda Colón APRN, Med Refill in [facility] thony C.N.P. 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 - 06/12/2018 10:22 AM CDT Patient seen last in clinic on 12/29/17 for pre-op. Is due to be seen for med management. documented in this encounter Plan of Treatment Upcoming Encounters Date Type Specialty Care Team Description 02/11/2022 Appointment Laboratory Medicine Neli Hearn M.D. [address] [place] [phone] (Wo rk) 02/14/2022 Office Visit Family Medicine Lilli Hearn M.D. [address] [place] [phone] (Wo rk) documented as of this encounter Visit Diagnoses Not on filedocumented in this encounter Additional Health Concerns Assessment Noted Time PHQ-9 Depression Total Score: 10 01/09/2018 10:48 AM C DT documented as of this encounter Care Teams Wet Pan Mixer Relationship Specialty Start Date End Date Yolanda Colón APRN, C.N.P. PCP - General 09/08/16 documented as of this encounter
--- OUTSIDE RECORDS SUMMARY | 2021-12-28 09:59 | XMS_ITS | Encounter Summary ---
:1945 Author Organization [facility] Address [address] [place] [address] Care Team Providers Name Role Phone Yolanda Colón APRN, C.N.P. Primary Care Provider [phone] Reason for Visit Reason Comments Med Refill Encounter Details Date Type Department Care Team Description 04/11/2019 Refill Department of Family Medicine Yolanda Colón APRN, Med Refill in [facility] thony C.N.P. 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 - 04/11/2019 3:53 PM CST Last office visit 08/21/2018. Future appt 04/16/2019 SWING DEVELOPER documented in this encounter Plan of Treatment Upcoming Encounters Date Type Specialty Care Team Description 02/11/2022 Appointment Laboratory Medicine Neli Hearn M.D. [address] [place] [phone] (Wo rk) 02/14/2022 Office Visit Family Medicine Lilli Hearn M.D. [address] [place] [phone] (Wo rk) documented as of this encounter Visit Diagnoses Not on filedocumented in this encounter Additional Health Concerns Assessment Noted Time PHQ-9 Depression Total Score: 10 01/09/2018 10:48 AM C DT documented as of this encounter Care Teams Dispatcher Ship Pilot Relationship Specialty Start Date End Date Yolanda Colón APRN, C.N.P. PCP - General 09/08/16 documented as of this encounter
--- OUTSIDE RECORDS SUMMARY | 2021-12-28 09:59 | XMS_ITS | Encounter Summary ---
:1945 Author Organization [facility] Address [address] [place] [address] Care Team Providers Name Role Phone Yolanda Colón APRN, C.N.P. Primary Care Provider [phone] Reason for Visit Reason Comments Med Refill Encounter Details Date Type Department Care Team Description 07/03/2018 Refill Department of Family Medicine Yolanda Colón APRN, Med Refill in [facility] thony C.N.P. [address] [place], [place] [phone] [place] [phone] (Wo rk) Social History Tobacco Use Types [...] or relatives? How often do you attend sikh or 1 to 4 times per year 11/2019 catholic services? 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 - 07/03/2018 3:26 PM CDT Last seen in clinic 01/09/2018 documented in this encounter Plan of Treatment Upcoming Encounters Date Type Specialty Care Team Description 02/11/2022 Appointment Laboratory Medicine Neli Hearn M.D. [address] [place] [phone] (Wo rk) 02/14/2022 Office Visit Family Medicine Lilli Hearn M.D. [address] [place] [phone] (Wo rk) documented as of this encounter Visit Diagnoses Not on filedocumented in this encounter Additional Health Concerns Assessment Noted Time PHQ-9 Depression Total Score: 10 01/09/2018 10:48 AM C DT documented as of this encounter Care Teams Key Account Representative Relationship Specialty Start Date End Date Yolanda Colón APRN, C.N.P. PCP - General 09/08/16 documented as of this encounter
--- OUTSIDE RECORDS SUMMARY | 2021-12-28 09:59 | XMS_ITS | Encounter Summary ---
:1945 Author Organization [facility] Address [address] [place] [address] Care Team Providers Name Role Phone Yolanda Colón APRN, C.N.P. Primary Care Provider [phone] Reason for Visit Reason Comments Shoulder Pain right shoulder and wrist Wrist Pain Appointment Request (Routine) - Closed Specialty Diagnoses / Procedures Referred By Contact Refer red To Contact Family Medicine Referral ID Status Reason Start Date Expiration Date Visits Requ ested Visits Authorized [id number] Closed 04/09/2018 04/09/2019 1 1 Encounter Details Date Type Department Care Team Description 04/11/2018 Office Visit Department of Yolanda Craven Shoulder Right (Primary Dx); Medicine in [facility] Hart, C.N.PFamilia Anxiety [facility] lyssa [address] [place] [phone] Social History Tobacco Use Types Packs/Day Years [...] No 12/04/2019 organizations such as islam groups, unions, fraternal or athletic groups, or [...] at Date Recorded Male 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/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 - 04/11/2018 11:15 AM CST SUBJECTIVE CHIEF COMPLAINT / REASON FOR VISIT Cristi Macdonald is a 72 y.o. male who presents for evaluation of Shoulder Pain (right shoulder and wrist) and Wrist Pain HISTORY OF PRESENT ILLNESS 72 y/o male here for concerns regarding increasing anxiety. He has been on welbutrin SR 150, for many years. He has been happy with his medication for his anxiety and past does not wish to go off of it. He is not interested in adding other medications for anxiety but is wondering if he can increase his dose. He notes feeling anxious all the time and continually worrying. Denies panic attacks. Denies depression. Complains of right shoulder pain worse for the past 2 weeks. No known injury. The pain is deep inside and some burning sensation with movement. He will occasionally get a radiation of pain down the right arm. At rest he feels pain in the right biceps. He notes decreased ability to use his shoulder andit is difficult for him to sleep at night if he likes sleep on his right side. He has been using Naprosyn 500 mg twice a day for pain. Patient has had no imaging and would like to avoid a steroid injection if possible. The following portions of the patient's history were reviewed and updated as appropriate: allergies,current medications, family history, medical history, social history, surgical history and problem list. REVIEW OF SYSTEMS A comprehensive review of systems was completed and all systems are negative except as listed under the HPI. OBJECTIVE BP 152/78 Pulse 98 Temp 37.4 ??C Wt (!) 148.8 kg SpO2 93% BMI 48.03 kg/m?? PHYSICAL EXAM General: Patient is alert, [...] sounds are active. No rebound or guarding. Musculoskeletal: Shoulders are symmetric. No obvious dislocation. He has some mild point tenderness on the anterior aspect of the shoulder and moderate pain with pressure applied just under the acromion process on the right side. His active range of motion is decreased to 35?? with lateral raise and forward raise due to his pain. No laxity to the joint. His upper extremity strength is equal and appropriate. Neurologic: Sensation is appropriate in the upper extremities. ASSESSMENT / PLAN 1. Bursitis Shoulder Right Treatment options were reviewed. A anatomical diagram and shoulder model was used for educational purposes today. Discuss treatment options including rest, heat and ice, stretching and strengthening exercises, physical therapy. Anti- inflammatories are an option as well as a steroid course. Further consultation to Orthopedics or referral for steroid injection was also reviewed. Patient would like to try ibuprofen 800 mg t.i.d. that he has at home and continue with rest and heat. Side-effect profile was reviewed. He should stop the naproxen if he is going to proceed with the ibuprofen. If no relief within the next 5-7 days. He would like to try the steroid course and this was sent to his pharmacy and placed on file for a Medrol Dosepak. Complete instructions up side-effect profile was reviewed. Patient should return after that is complete if no symptom improvement. He declines any further referrals at this time and declines PT at this time. 2. Anxiety Stress relieving techniques reviewed. Medication options including changing to a different medication was offered. Patient declined. Will switch to the Wellbutrin XL 300 mg daily. He is going to try this for the next 1-2 weeks and if no improvement would consider increasing this dose or adding BuSpar for anxiety. Patient is reluctant to add any more medications. Counseling was offered and patient declined. A psychiatrist referral was also offered and patient declined today. Advised to limit caffeineintake, regular exercise was advised and eating a well-balanced diet. URCE COORDINATOR documented in this encounter Plan of Treatment Upcoming Encounters Date Type Specialty Care Team Description 02/11/2022 Appointment Laboratory Medicine Neli Hearn M.D. [address] [place] [phone] (Wo rk) 02/14/2022 Office Visit Family Medicine Lilli Hearn M.D. [address] [place] [phone] (Wo rk) documented as of this encounter Visit Diagnoses Diagnosis Bursitis Shoulder Right - Primary Anxiety documented in this encounter Additional Health Concerns Assessment Noted Time PHQ-9 Depression Total Score: 10 01/09/2018 10:48 AM C DT documented as of this encounter Care Teams Microarray Specialist Relationship Specialty Start Date End Date Yolanda Colón APRN, C.N.P. PCP - General 09/08/16 documented as of this encounter
--- OUTSIDE RECORDS SUMMARY | 2021-12-28 09:59 | XMS_ITS | Encounter Summary ---
:1945 Author Organization [facility] Address [address] [place] [address] Care Team Providers Name Role Phone Yolanda Colón APRN, C.N.P. Primary Care Provider Reason for Referral Outpatient (Routine) - Closed Specialty Diagnoses / Procedures Referred By Contact Refer red To Contact Family Medicine Yolanda Colón APRN, [facility] C.N.P. [address] [place] [address] Referral ID Status Reason Start Date Expiration Date Visits Requ ested Visits Authorized [id number] Closed 11/07/2019 11/06/2020 1 1 Scheduling Instructions Patient was asked to call and make an ap pt. Please call him if he has not called in after 11/26/2019. Available times only in [place]. RN schedule. Reason for Visit Reason Comments Communication Medicare Wellness Visit Encounter Details Date Type Department Care Team Description 11/07/2019 Clinical Communication Department of [facility], Wendy garcia Family Medicine in A, R.N. (Medicare Wellness [place], [address] [facility] Visit) [place], [place] [address] [place] [address] [place], [place] [phone] (Work) [phone] Social History Tobacco Use Types Packs/Day Years [...] 1 to 4 times per year 11/2019 judaism services? Do you belong to any clubs or No 12/04/2019 organizations such as anglican groups, unions, fraQuincy Bioscience or athletic groups, or school groups? 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 - 11/07/2019 1:32 PM CDT ID'd as [email or web address]. Message left encouraging Mr. Macdonald to call and make an appt for his Medicare Wellness Visit. Contact information left. Order placed. documented in this encounter Plan of Treatment Upcoming Encounters Date Type Specialty Care Team Description 02/11/2022 Appointment Laboratory Medicine Neli Hearn M.D. [address] [place] [phone] (Stephon caldera) 02/14/2022 Office Visit Family Medicine Lilli Hearn M.D. [address] [place] [phone] (Stephon caldera) Scheduled Referrals Name Type Priority Associated Diagnoses Order S xena Family Medicine Outpatient Referral Routine Expec deidre: nurse visit 12/08/2019 (clinic) (Approximate), Expires: 11/06/2022 documented as of this encounter Visit Diagnoses Not on filedocumented in this encounter Additional Health Concerns Assessment Noted Time PHQ-9 Depression Total Score: 4 04/16/2019 10:58 AM CS T documented as of this encounter Care Teams Assembler Faucets Relationship Specialty Start Date End Date Yolanda Colón APRN, C.N.P. PCP - General 09/08/16 documented as of this encounter
--- OUTSIDE RECORDS SUMMARY | 2021-12-28 09:59 | XMS_ITS | Encounter Summary ---
:1945 Author Organization [facility] Address [address] [place] [address] Care Team Providers Name Role Phone Yolanda Colón APRN, C.N.P. Primary Care Provider [phone] Reason for Visit Reason Comments Med Refill Encounter Details Date Type Department Care Team Description 09/28/2018 Refill Department of Family Medicine Yolanda Colón APRN, Med Refill in [facility] thony C.N.P. [address] [place], [place] [phone] [place] [phone] (Wo rk) Social History Tobacco Use Types [...] or relatives? How often do you attend hoahaoism or 1 to 4 times per year 11/2019 congregational services? 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 [address] [place] [phone] (Wo rk) 02/14/2022 Office Visit Family Medicine Lilli Hearn M.D. [address] [place] [phone] (Wo rk) documented as of this encounter Visit Diagnoses Not on filedocumented in this encounter Additional Health Concerns Assessment Noted Time PHQ-9 Depression Total Score: 10 01/09/2018 10:48 AM C DT documented as of this encounter Care Teams Molding And Trim Installer Relationship Specialty Start Date End Date Yolanda Colón APRN, C.N.P. PCP - General 09/08/16 documented as of this encounter
--- OUTSIDE RECORDS SUMMARY | 2021-12-28 09:59 | XMS_ITS | Encounter Summary ---
:1945 Author Organization [facility] Address [address] [place] [address] Care Team Providers Name Role Phone Yolanda Colón APRN, C.N.P. Primary Care Provider Reason for Visit Reason Comments Med Refill Encounter Details Date Type Department Care Team Description 02/25/2019 Refill Department of Family Medicine Yolanda Colón APRN, Med Refill in [facility] thony C.N.P. 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 - 02/25/2019 3:25 PM CST Last office visit 08/21/18 - Acute visit. Due for annual med review ER documented in this encounter Plan of Treatment Upcoming Encounters Date Type Specialty Care Team Description 02/11/2022 Appointment Laboratory Medicine Neli Hearn M.D. [address] [place] [phone] (Wo rk) 02/14/2022 Office Visit Family Medicine Lilli Hearn M.D. [address] [place] [phone] (Wo rk) documented as of this encounter Visit Diagnoses Not on filedocumented in this encounter Additional Health Concerns Assessment Noted Time PHQ-9 Depression Total Score: 10 01/09/2018 10:48 AM C DT documented as of this encounter Care Teams Metal Tank Builder Relationship Specialty Start Date End Date Yolanda Colón APRN, C.N.P. PCP - General 09/08/16 documented as of this encounter
--- OUTSIDE RECORDS SUMMARY | 2021-12-28 09:59 | XMS_ITS | Encounter Summary ---
:1945 Author Organization [facility] Address [address] [place] [address] Care Team Providers Name Role Phone Yolanda Colón APRN, C.N.P. Primary Care Provider [phone] Encounter Details Date Type Department Care Team Description 07/16/2019 Clinical Communication Department of Yolanda Craven in [facility], C.N.PTerri Villalobos a [address] [place] [phone] Social History Tobacco Use Types Packs/Day Years [...] 1 to 4 times per year 11/2019 congregation services? 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 - 07/16/2019 1:25 PM CDT This encounter was created in error - please disregard. documented in this encounter Plan of Treatment Upcoming Encounters Date Type Specialty Care Team Description 02/11/2022 Appointment Laboratory Medicine Neli Hearn M.D. [address] [place] [phone] (Wo rk) 02/14/2022 Office Visit Family Medicine Lilli Hearn M.D. [address] [place] [phone] (Wo rk) documented as of this encounter Visit Diagnoses Not on filedocumented in this encounter Additional Health Concerns Assessment Noted Time PHQ-9 Depression Total Score: 4 04/16/2019 10:58 AM CS T documented as of this encounter Care Teams Hair Dresser Relationship Specialty Start Date End Date Yolanda Colón APRN, C.N.P. PCP - General 09/08/16 documented as of this encounter
--- OUTSIDE RECORDS SUMMARY | 2021-12-28 09:59 | XMS_ITS | Encounter Summary ---
:1945 Author Organization [facility] Address [address] [place] [address] Care Team Providers Name Role Phone Yolanda Colón APRN, C.N.P. Primary Care Provider [phone] Encounter Details Date Type Department Care Team Description 07/16/2019 Orders Only Department of Family Yolanda Colón Glucose Medicine in [facility], C.N.P. (Primary Dx) Terri Michael a [address] [place] [phone] Social History Tobacco Use Types Packs/Day Years [...] or relatives? How often do you attend amish or 1 to 4 times per year 11/2019 sikhism services? 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 [address] [place] [phone] (Wo rk) 02/14/2022 Office Visit Family Medicine Lilli Hearn M.D. [address] [place] [phone] (Wo rk) documented as of this encounter Visit Diagnoses Diagnosis Elevated Glucose - Primary documented in this encounter Additional Health Concerns Assessment Noted Time PHQ-9 Depression Total Score: 4 04/16/2019 10:58 AM CS T documented as of this encounter Care Teams Commissioning Specialist Relationship Specialty Start Date End Date Yolanda Colón APRN, C.N.P. PCP - General 09/08/16 documented as of this encounter
--- OUTSIDE RECORDS SUMMARY | 2021-12-28 09:59 | XMS_ITS | Encounter Summary ---
:1945 Author Organization [facility] Address [address] [place] [address] Care Team Providers Name Role Phone Yolanda Colón APRN, C.N.P. Primary Care Provider [phone] Encounter Details Date Type Department Care Team Description 04/09/2018 Nurse Triage Department of [facility] Hollie Benítez RRoslyn Medicine in [place], [address] [place] [address] Social History Tobacco Use Types Packs/Day Years [...] 1 to 4 times per year 11/2019 baptism services? 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 [address] [place] [address] (Wo rk) 02/14/2022 Office Visit Family Medicine Lilli Hearn M.D. [address] [place] [address] (Wo rk) documented as of this encounter Visit Diagnoses Not on filedocumented in this encounter Additional Health Concerns Assessment Noted Time PHQ-9 Depression Total Score: 10 01/09/2018 10:48 AM C DT documented as of this encounter Care Teams Belt Brander Relationship Specialty Start Date End Date Yolanda Colón APRN, C.N.P. PCP - General 09/08/16 documented as of this encounter
--- OUTSIDE RECORDS SUMMARY | 2021-12-28 09:59 | XMS_ITS | Encounter Summary ---
:1945 Author Organization [facility] Address [address] [place] [address] Care Team Providers Name Role Phone Yolanda Colón APRN, C.N.P. Primary Care Provider [phone] Reason for Visit Reason Comments Med Refill Encounter Details Date Type Department Care Team Description 09/03/2018 Refill Department of Family Medicine Yolanda Colón APRN, Med Refill in [facility] thony C.N.P. [address] [place], [place] [phone] [place] [phone] (Wo rk) Social History Tobacco Use Types [...] or relatives? How often do you attend mandaen or 1 to 4 times per year 11/2019 congregational services? 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 - 09/03/2018 2:24 PM CDT Last seen in clinic 08/21/2018 documented in this encounter Plan of Treatment Upcoming Encounters Date Type Specialty Care Team Description 02/11/2022 Appointment Laboratory Medicine Neli Hearn M.D. [address] [place] [phone] (Wo rk) 02/14/2022 Office Visit Family Medicine Lilli Hearn M.D. [address] [place] [phone] (Wo rk) documented as of this encounter Visit Diagnoses Not on filedocumented in this encounter Additional Health Concerns Assessment Noted Time PHQ-9 Depression Total Score: 10 01/09/2018 10:48 AM C DT documented as of this encounter Care Teams Cooking Chef Relationship Specialty Start Date End Date Yolanda Colón APRN, C.N.P. PCP - General 09/08/16 documented as of this encounter
--- OUTSIDE RECORDS SUMMARY | 2021-12-28 09:59 | XMS_ITS | Encounter Summary ---
:1945 Author Organization [facility] Address [address] [place] [address] Care Team Providers Name Role Phone Yolanda Colón APRN, C.N.P. 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 - 07/02/2019 11:14 AM CDT Patient advised - thankful for the help Telephone Encounter - Yolanda Colón APRN, C.N.P. - 07/02/2019 11:12 AM CDT I sent a prescription for the Valium for muscle spasm that he can take daily as needed. Telephone Encounter - Alpa Nelson R.N. - 07/02/2019 10:31 AM CDT S. Calling with reports of back pain making it difficult to ambulate/manage at home. Requesting specifically for a 'muscle relaxer' if able B. Hx severe back pain 4-years ago; See OV 09/02/15 with Adelina Was prescribed at that time: Prednisone Hydrocodone Valium A. Reports: Lower back pain Radiates down Right leg No numbness/tingling to extremity Able to walk; but with difficulty/pain Reports has been having some severe sciatic nerve pain or possible chronic flare-up vertebre pain. He feels that it's in his vertebrae/back. - He does Not feel the need for Immediate care in the ER R: Please advise Carlos Alberto rviera Telephone Encounter - Joanna Daley - 07/02/2019 8:26 AM CDT Patient called in stating he would like to talk with a nurse. He has been having some severe sciaticnerve pain. He states that it's in his vertebrae. He had a shot in the past and stated since it wasn't possible to get that done he is wondering if there might be medication that he could take to calm the nerve. Please contact the patient as soon as possible. documented in this encounter Plan of Treatment Upcoming Encounters Date Type Specialty Care Team Description 02/11/2022 Appointment Laboratory Medicine Neli Hearn M.D. [address] [place] [phone] (Wo rk) 02/14/2022 Office Visit Family Medicine Lilli Hearn M.D. [address] [place] [address] (Wo rk) documented as of this encounter Visit Diagnoses Not on filedocumented in this encounter Additional Health Concerns Assessment Noted Time PHQ-9 Depression Total Score: 4 04/16/2019 10:58 AM CS T documented as of this encounter Care Teams Subeditor Relationship Specialty Start Date End Date Yolanda Colón APRN, C.N.P. PCP - General 09/08/16 documented as of this encounter
--- OUTSIDE RECORDS SUMMARY | 2021-12-28 09:59 | XMS_ITS | Encounter Summary ---
:1945 Author Organization [facility] Address [address] [place] [address] Care Team Providers Name Role Phone Yolanda Colón APRN, C.N.P. Primary Care Provider [phone] Encounter Details Date Type Department Care Team Description 07/16/2019 Hospital Encounter Department of Sara Colón Laboratory Medicine Yolanda Hart APRN, Essent ial Primary in [facility] C.N[facility] [address] [place] [phone] Social History Tobacco Use Types Packs/Day Years [...] 1 to 4 times per year 11/2019 mormonism services? 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 GLUCOSAMINE/CHONDR NOONAN A Take 1 tablet by 0 2013 SOD (OSTEO BI-FLEX ORAL) mouth 2 (two) times a day. MULTIVITAMIN WITH MINERALS Take 1 tablet by 0 ORAL mouth daily. omega-3 fatty acids 500 mg Take 2 tablets by 0 capsule mouth daily. Capsules 1200 mg, take 2 caps daily amLODIPine (NORVASC) 5 mg Take 1 tablet (5 mg 90 tablet 3 0 04/16/2019 06/01/2020 tablet total) by mouth daily. buPROPion (Wellbutrin SR) Take 150 mg by 0 01/07/2020 150 mg 12 hr tablet mouth 2 (two) times a day. buPROPion XL (WELLBUTRIN Take 1 tablet (300 90 tablet 3 07/07/2020 XL) 300 mg 24 hr tablet mg total) by mouth every morning. diazePAM (VALIUM) 2 mg Take 1 table daily 12 tablet 0 07/0111/12/2019 tablet as needed for muscle spasm. fluticasone propionate 1 SPRAY NASAL 48 g 11 06/12/2018 11/12/2019 (FLONASE) 50 mcg/actuation DAILY. nasal spray furosemide (LASIX) 20 mg Take 1 tablet (20 3 tablet 0 05/2611/12/2019 tabletIndications: mg total) by mouth Hypertension Essential daily for 3 days. Primary hydroCHLOROthiazide Take 25-50 mg daily 180 tablet 3 020 11/12/2019 (HYDRODIURIL) 25 mg tablet for hypertension loratadine (CLARITIN) 10 Take 10 mg by mouth 0 11/12/2019 mg tablet as needed for allergies. losartan (COZAAR) 100 mg Take 1 tablet (100 90 tablet 3 06/01/2020 tablet mg total) by mouth daily. naproxen (NAPROSYN) 500 mg Takes daily 90 tablet 3 04/16/19 20 05/12/2020 tablet omeprazole (PriLOSEC) 20 TAKE ONE (1) 90 capsule 0 9 01/06/[address] capsule CAPSULE BY MOUTH DAILY pravastatin (PRAVACHOL) 80 Take 1 tablet (80 90 tablet 3 03/28/2020 mg tablet mg total) by mouth at bedtime. sashtlnkuiezbwu-LQ-mgzaVCQ Take 10 mL by mouth 0 01/07/2020 esin (ROBITUSSIN-PE) every 4 (four) 30-10-100 mg/5 mL solution hours as needed for allergies. terazosin (HYTRIN) 1 mg Take 1 capsule (1 90 capsule 3 04/1606/01/2020 capsule mg total) by mouth daily. documented as of this encounter Plan of Treatment Upcoming Encounters Date Type Specialty Care Team Description 02/11/2022 Appointment Laboratory Medicine Neli Hearn M.D. [address] [place] [phone] (Wo rk) 02/14/2022 Office Visit Family Medicine Lilli Hearn M.D. [address] [place] [facility] [place] [phone] (Wo rk) documented as of this encounter Procedures Procedure Name Priority Date/Time Associated Diagnosis Comme nts BASIC METABOLIC Routine 07/16/2019 8:53 AM Hypertension Result s for this PANEL, S/P CDT Essential Primary procedure are in the results section. documented in this encounter Results (ABNORMAL) Basic Metabolic Panel (07/16/2019 8:53 AM CDT) athologist Signature Potassium, P 4.0 3.6 - [...] CDT eGFR-Black/Afric 88 >=60 07/16/2019 NPRG an Scottish mL/min/BSA 12:06 PM CDT Comment: ----ADDITIONAL INFORMATION---- [...] Organization Address City/State/ZIP Code Phon e Number [facility]- [address] LAB NPRG [place], [place] [id number] [place] [address] [address] [facility]) documented in this encounter Visit Diagnoses Diagnosis Hypertension Essential Primary documented in this encounter Additional Health Concerns Assessment Noted Time PHQ-9 Depression Total Score: 4 04/16/2019 10:58 AM CS T documented as of this encounter Care Teams Mr Teacher Relationship Specialty Start Date End Date Yolanda Colón APRN, C.N.P. PCP - General 09/08/16 documented as of this encounter
--- OUTSIDE RECORDS SUMMARY | 2021-12-28 09:59 | XMS_ITS | Encounter Summary ---
:1945 Author Organization [facility] Address [address] [place] [address] Care Team Providers Name Role Phone Yolanda Colón APRN, C.N.P. Primary Care Provider Encounter Details Date Type Department Care Team Description 04/16/2019 Orders Only Department of Family Yolanda Colón Glucose Medicine in [place], C.N.P. (Primary Dx) Terri Michael a [address] [place] [phone] Social History Tobacco Use Types Packs/Day Years [...] 1 to 4 times per year 11/2019 islam services? 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 [address] [place] [phone] (Wo rk) 02/14/2022 Office Visit Family Medicine Lilli Hearn M.D. [address] [place] [phone] (Wo rk) documented as of this encounter Visit Diagnoses Diagnosis Elevated Glucose - Primary documented in this encounter Additional Health Concerns Assessment Noted Time PHQ-9 Depression Total Score: 4 04/16/2019 10:58 AM CS T documented as of this encounter Care Teams Cotton Buyer Relationship Specialty Start Date End Date Yolanda Colón APRN, C.N.P. PCP - General 09/08/16 documented as of this encounter
--- OUTSIDE RECORDS SUMMARY | 2021-12-28 09:59 | XMS_ITS | Encounter Summary ---
:1945 Author Organization [facility] Address [address] [place] [address] Care Team Providers Name Role Phone Yolanda Colón APRN, C.N.P. Primary Care Provider [phone] Encounter Details Date Type Department Care Team Description 04/11/2018 Orders Only Department of Family Edith Sifuentes Medicine in [place], [phone] [place] (Work) [address] [place] [address] Social History Tobacco Use Types Packs/Day Years [...] or relatives? How often do you attend roman catholic or 1 to 4 times per year 11/2019 buddhism services? Do you belong to any clubs or No 12/04/2019 organizations such as roman catholic groups, unions, fraternal or athletic groups, [...] at Date Recorded Male 04/20/2021 3:56 PM [facility]IC [facility] documented as of this encounter Plan of Treatment Upcoming Encounters Date Type Specialty Care Team Description 02/11/2022 Appointment Laboratory Medicine Neli Hearn M.D. [address] [place] [facility] [place] [address] (Wo rk) 02/14/2022 Office Visit Family Medicine Lilli Hearn M.D. [address] [place] [facility] [address] (Wo rk) documented as of this encounter Visit Diagnoses Not on filedocumented in this encounter Additional Health Concerns Assessment Noted Time PHQ-9 Depression Total Score: 10 01/09/2018 10:48 AM C DT documented as of this encounter Care Teams Account Manager Forest Service Relationship Specialty Start Date End Date Yolanda Colón APRN, C.N.P. PCP - General 09/08/16 documented as of this encounter
--- OUTSIDE RECORDS SUMMARY | 2021-12-28 09:59 | XMS_ITS | Encounter Summary ---
:1945 Author Organization [facility] Address [address] [place] [address] Care Team Providers Name Role Phone Yolanda Colón APRN, C.N.P. Primary Care Provider [phone] Encounter Details Date Type Department Care Team Description 06/12/2019 Clinical Communication Department of Yolanda Craven in [place], C.N.PTerri Villalobos a [address] [place] [phone] Social History Tobacco Use Types Packs/Day Years [...] 1 to 4 times per year 11/2019 religion services? 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 - 06/14/2019 4:49 PM CDT Patient notified Rx sent to pharmacy and to have lab draw next week. No further questions at this time. Telephone Encounter - Yolanda Colón APRN C.N.P. - 06/14/2019 4:33 PM CDT He can try furosemide 20 mg daily for 3 days and then have a BMP next week. Telephone Encounter - Torri Rolle R.N. - 06/13/2019 4:11 PM CDT Patient called back. Informed patient that Adelina is not in clinic this afternoon. She does check her messages when she is not in clinic. Patient states and will wait for her reply. Telephone Encounter - Delia Crews R.N. - 06/12/2019 9:24 AM CDT Pt states he is on losartan 100 mg and HCTZ 50 mg daily. He states he was told to take HCTZ 100 mg for swelling in feet x 2.5 weeks and he does not think this has helped at all with reducing the swelling. He does not wear compression stockings so I encouraged him to wear these (he thinks he has some from a previous surgery). He does elevate his legs in the recliner and that had been helping to reduceswelling over the night but it isn't helping any more. He does also feel some discomfort in his feet. He denies any redness. He denies any changes in his breathing. He is wondering what your recommendations are, perhaps a different medication? Please advise. Telephone Encounter - Karena Lopez - 06/12/2019 8:39 AM CDT Pt would like a call/// states water pills are not working. documented in this encounter Plan of Treatment Upcoming Encounters Date Type Specialty Care Team Description 02/11/2022 Appointment Laboratory Medicine Neli Hearn M.D. [address] [place] [phone] (Wo rk) 02/14/2022 Office Visit Family Medicine Lilli Hearn M.D. [address] [place] [phone] (Wo rk) documented as of this encounter Visit Diagnoses Not on filedocumented in this encounter Additional Health Concerns Assessment Noted Time PHQ-9 Depression Total Score: 4 04/16/2019 10:58 AM CS T documented as of this encounter Care Teams Beer Still Runner Compounder Relationship Specialty Start Date End Date Yolanda Colón APRN, C.N.P. PCP - General 09/08/16 documented as of this encounter
--- OUTSIDE RECORDS SUMMARY | 2021-12-28 09:59 | XMS_ITS | Encounter Summary ---
:1945 Author Organization [facility] Address [address] [place] [address] Care Team Providers Name Role Phone Yolanda Colón APRN, C.N.P. 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 - 05/06/2019 4:25 PM CST Patient has a sinus headache which started this afternoon. He does take Naproxen 500 mg daily. His last dose was at 8:00am this morning. Informed patient that he can take Advil this afternoon for his headache. If his symptoms do not improve within the next couple days, he should contact the clinic. Patient agreed with the plan. He had no further questions. GHT SHIPPING AGENT Telephone Encounter - Margo Murillo - 05/06/2019 3:57 PM CST Medhat would like a call back, he has a sinus headache and was told by Noemi that he can only take certain medication and wants to know if he can take Advil. GHT SHIPPING AGENT documented in this encounter Plan of Treatment Upcoming Encounters Date Type Specialty Care Team Description 02/11/2022 Appointment Laboratory Medicine Neli Hearn M.D. [address] [place] [phone] (Stephon caldera) 02/14/2022 Office Visit Family Medicine Lilli Hearn M.D. [address] [place] [phone] (Stephon caldera) documented as of this encounter Visit Diagnoses Not on filedocumented in this encounter Additional Health Concerns Assessment Noted Time PHQ-9 Depression Total Score: 4 04/16/2019 10:58 AM CS T documented as of this encounter Care Teams Regional Sales Consultant Relationship Specialty Start Date End Date Yolanda Colón APRN, C.N.P. PCP - General 09/08/16 documented as of this encounter
--- OUTSIDE RECORDS SUMMARY | 2021-12-28 09:59 | XMS_ITS | Encounter Summary ---
:1945 Author Organization [facility] Address [address] [place] [address] Care Team Providers Name Role Phone Yolanda Colón APRN, C.N.P. Primary Care Provider [phone] Encounter Details Date Type Department Care Team Description 04/18/2019 Hospital Encounter Department of Radiology Yolanda Colón, Lipoma in [facility] lela AMBER, C.N.P. 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 fluticasone propionate 1 SPRAY NASAL 48 g 11 06/12/2018 11/12/2019 (FLONASE) 50 mcg/actuation DAILY. nasal spray hydroCHLOROthiazide Take 25-50 mg daily 180 tablet [...] tablet mg total) by mouth at bedtime. hozeokualtpzxkn-EK-egkwXTQ Take 10 mL by mouth 0 01/07/2020 esin (ROBITUSSIN-PE) every 4 (four) 30-10-100 mg/5 mL solution hours as needed for allergies. terazosin (HYTRIN) 1 mg Take 1 capsule (1 90 capsule 3 04/1606/01/2020 capsule mg total) by mouth daily. documented as of this encounter Plan of Treatment Upcoming Encounters Date Type Specialty Care Team Description 02/11/2022 Appointment Laboratory Medicine Neli Hearn M.D. [address] [place] [phone] (Stephon rk) 02/14/2022 Office Visit Family Medicine Lilli Hearn M.D. [address] [place] [address] (Stephon rk) documented as of this encounter Procedures Procedure Name Priority Date/Time Associated Comments Diagnosis US HEAD NECK SOFT RAD - Routine 04/18/2019 9:11 Lipoma Result s for this TISSUE (most inpatients AM PASSENGER RATE CLERK procedure a re in and all the results outpatients) section. documented in this encounter Results US Head Neck Soft Tissue (04/18/2019 9:11 AM PASSENGER RATE CLERK) Anatomical Region Laterality Modality Head and Neck, Ultrasound RST LOS, Ultrasound ARZ LOS, N/A Ultrasound Ultrasound FLA LOS Specimen (Source) Anatomical Collection Method Collection Time Re ceived Time Location / / Volume Laterality 04/18/2019 9:13 AM PASSENGER RATE CLERK Impressions 04/18/2019 9:25 AM PASSENGER RATE CLERK Multiple small probable benign lipomas identified in the neck bilaterally. Narrative 04/18/2019 9:25 AM PASSENGER RATE CLERK EXAM: US HEAD NECK SOFT TISSUE COMPARISON: [...] Yolanda Colón APRN, C.N.P. IMG US PROCEDURES documented in this encounter Visit Diagnoses Diagnosis Lipoma documented in this encounter Additional Health Concerns Assessment Noted Time PHQ-9 Depression Total Score: 4 04/16/2019 10:58 AM CS T documented as of this encounter Care Teams Hypertrichologist Relationship Specialty Start Date End Date Yolanda Colón APRN, C.N.P. PCP - General 09/08/16 documented as of this encounter
--- OUTSIDE RECORDS SUMMARY | 2021-12-28 09:59 | XMS_ITS | Encounter Summary ---
:1945 Author Organization [facility] Address [address] [place] [address] Care Team Providers Name Role Phone Yolanda Colón APRN, C.N.P. Primary Care Provider [phone] Reason for Visit Reason Comments Med Refill Encounter Details Date Type Department Care Team Description 03/12/2019 Refill Department of Family Medicine Yolanda Colón APRN, Med Refill in [facility] thony C.N.P. [address] [place], [place] [phone] [place] [phone] (Wo rk) Social History Tobacco Use Types [...] or relatives? How often do you attend worship or 1 to 4 times per year 11/2019 orthodoxy services? 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 - 03/12/2019 2:38 PM CST Patient is due to be seen, hypertension not addressed for over a year. T WAREHOUSE SELECTOR documented in this encounter Plan of Treatment Upcoming Encounters Date Type Specialty Care Team Description 02/11/2022 Appointment Laboratory Medicine Neli Hearn M.D. [address] [place] [phone] (Wo rk) 02/14/2022 Office Visit Family Medicine Lilli Hearn M.D. [address] [place] [phone] (Wo rk) documented as of this encounter Visit Diagnoses Not on filedocumented in this encounter Additional Health Concerns Assessment Noted Time PHQ-9 Depression Total Score: 10 01/09/2018 10:48 AM C DT documented as of this encounter Care Teams Film Or Videotape Editor Relationship Specialty Start Date End Date Yolanda Colón APRN, C.N.P. PCP - General 09/08/16 documented as of this encounter
--- OUTSIDE RECORDS SUMMARY | 2021-12-28 09:59 | XMS_ITS | Encounter Summary ---
:1945 Author Organization [facility] Address [address] [place] [address] Care Team Providers Name Role Phone Yolanda Colón APRN, C.N.P. Primary Care Provider [phone] Reason for Visit Reason Comments Sinusitis all winter on and off, last 2 weeks have been worse Conjunctivitis Appointment Request (Routine) - Closed Specialty Diagnoses / Procedures Referred By Contact Refer red To Contact Family Medicine Referral ID Status Reason Start Date Expiration Date Visits Requ ested Visits Authorized [id number] Closed 08/21/2018 08/21/2019 1 1 Encounter Details Date Type Department Care Team Description 08/21/2018 Office Visit Department of Yolnada Craven usitis Acute Medicine in AMBER Hart, C.N.P. 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 - 08/21/2018 3:30 PM CDT SUBJECTIVE CHIEF COMPLAINT / REASON FOR VISIT Cristi Macdonald is a 72 y.o. male who presents for evaluation of Sinusitis (all winter on and off, last 2 weeks have been worse) and Conjunctivitis HISTORY OF PRESENT ILLNESS 72-year-old male is here today for complaints of sinus infection. He has had symptoms on and off throughout the winter however over the last 2 weeks they have been fairly persistent. He complains of nasal congestion, fatigue, nasal drainage in sore throat. He has postnasal drip and productive cough with yellow phlegm. The last 4-5 nights has been difficult for him to sleep due to the facial pressure.He has been using Claritin as well as cough and cold medications without any relief. He also uses Flonase. Patient denies fever, chills or sweats. He does noted decreased appetite. Yesterday his eyes became red and itchy with a mattery drainage. The following portions of the patient's history were reviewed and updated as appropriate: allergies,current medications, family history, medical history, social history, surgical history and problem list. REVIEW OF SYSTEMS Constitutional: Positive for fatigue. Negative for fever. Skin: Negative for skin rash. Eyes: Positive for visual problems (eyes red and yellow drainage). ENT: Positive for sinus congestion. Respiratory: Positive for coughing up mucus (phlegm), dyspnea and wheezing. Cardiovascular: Negative for chest pain, pressure or tightness. Gastrointestinal: Negative for nausea and vomiting. Neurological: Positive for headaches. MEDICATIONS Current Outpatient Prescriptions on File Prior to Visit Medication Sig Dispense Refill ??? amLODIPine (NORVASC) 5 mg tablet TAKE 1 TABLET BY MOUTH ONCE DAILY 90 tablet 3 ??? aspirin [address] tablet Take 81 mg by mouth. ??? buPROPion XL (WELLBUTRIN XL) 300 mg 24 hr tablet Take 1 tablet (300 mg total) by mouth daily. 90tablet 11 ??? fluticasone propionate (FLONASE) 50 mcg/actuation nasal spray 1 SPRAY NASAL DAILY. 48 g 11 ??? GLUCOSAMINE/CHONDR NOONAN A SOD (OSTEO BI-FLEX ORAL) Take 1 tablet by mouth 2 (two) times a day. ??? losartan-hydroCHLOROthiazide (HYZAAR) 100-25 mg per tablet TAKE 1 TABLET BY MOUTH EVERY DAY 90 tablet 3 ??? MULTIVITAMIN WITH MINERALS ORAL Take 1 tablet by mouth daily. ??? naproxen (NAPROSYN) 500 mg tablet Take 500 mg by mouth as needed. ??? omega-3 fatty acids (FISH OIL) 500 mg capsule Take 2 tablets by mouth daily. ??? omeprazole (PriLOSEC) [address] capsule TAKE ONE (1) CAPSULE BY MOUTH DAILY 90 capsule 0 ??? pravastatin (PRAVACHOL) 80 mg tablet TAKE ONE (1) tablet BY MOUTH AT BEDTIME 90 tablet 3 ??? terazosin (HYTRIN) 1 mg capsule TAKE ONE (1) CAPSULE BY MOUTH AT BEDTIME 90 capsule 0 No current facility-administered medications on file prior to visit. OBJECTIVE BP 143/77 Pulse 74 Temp 37.4 ??C Resp 22 Wt (!) 153 kg SpO2 93% BMI 49.38 kg/m?? PHYSICAL EXAM General: Patient is alert, oriented x 3 and in no acute distress. HEENT: Conjunctiva mildly injected without lid edema or drainage noted. TMs dull bilaterally, nasal mucosa are inflamed with positive right maxillary sinus tenderness. Pharynx is mildly injected without tonsillar adenopathy or exudate. Neck is nontender without cervical adenopathy. CHEST: Respirations are equal and nonlabored. Lungs are clear to auscultation without wheeze, rhonchi or rale. CARDIOVASCULAR: Heart rate and rhythm are regular without murmur. ABD: Abdomen is soft and nontender without palpable mass or organomegaly. Bowel sounds are active. No rebound or guarding. ASSESSMENT / PLAN Acute maxillary sinusitis Doxycycline 100 mg twice a day times 10 days was prescribed. Side-effect profile was reviewed. Patient is going to switch to Zyrtec from Claritin as he feels that this may not be working for him any longer. He will continue with this Flonase and saline nasal spray. Seig-nez-xicnafr analgesics for discomfort. Recommended increased fluid intake. Call or return if no symptom improvement in the next 5-7 days. He voices understanding and is in agreement with this plan. documented in this encounter Plan of Treatment Upcoming Encounters Date Type Specialty Care Team Description 02/11/2022 Appointment Laboratory Medicine Neli Hearn M.D. [address] [place] [phone] (Wo rk) 02/14/2022 Office Visit Family Medicine Lilli Hearn M.D. [address] [place] [phone] (Wo rk) documented as of this encounter Visit Diagnoses Diagnosis Sinusitis Acute - Primary documented in this encounter Additional Health Concerns Assessment Noted Time PHQ-9 Depression Total Score: 10 01/09/2018 10:48 AM C DT documented as of this encounter Care Teams Ceo & Co Founder Relationship Specialty Start Date End Date Yolanda Colón APRN, C.N.P. PCP - General 09/08/16 documented as of this encounter
--- OUTSIDE RECORDS SUMMARY | 2021-12-28 10:00 | XMS_ITS | Encounter Summary ---
:1945 Author Organization [facility] Address [address] [place] [address] Care Team Providers Name Role Phone Yolanda Colón APRN, C.N.P. Primary Care Provider [phone] Reason for Visit Reason Comments Med Refill Encounter Details Date Type Department Care Team Description 05/30/2017 Refill Department of Family Medicine Yolanda Colón APRN, Med Refill in [facility] thony C.N.P. 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 - 05/30/2017 2:37 PM CST Last seen 03/14/17. A TECHNICIAN documented in this encounter Plan of Treatment Upcoming Encounters Date Type Specialty Care Team Description 02/11/2022 Appointment Laboratory Medicine Neli Hearn M.D. [address] [place] [phone] (Wo rk) 02/14/2022 Office Visit Family Medicine Lilli Hearn M.D. [address] [place] [phone] (Wo rk) documented as of this encounter Visit Diagnoses Not on filedocumented in this encounter Care Teams Creative Developer Relationship Specialty Start Date End Date Yolanda Colón APRN, C.N.P. PCP - General 09/08/16 documented as of this encounter
--- OUTSIDE RECORDS SUMMARY | 2021-12-28 10:00 | XMS_ITS | Encounter Summary ---
:1945 Author Organization [facility] Address [address] [place] [address] Care Team Providers Name Role Phone Yolanda Colón APRN, C.N.P. 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 - 11/23/2017 12:10 PM CDT Patient notified to keep monitoring symptoms. If pain get worse by tomorrow or other concerns, he may contact the clinic to be seen before the weekend. Otherwise patient has appt next week with Adelina. Patient agreed with the plan. He had no further questions at this time. Telephone Encounter - Johnathan Guy D.O. - 11/23/2017 10:53 AM CDT I cannot say that the pain he he was noting during the night was ???normal?? . But since his symptoms are otherwise improving and the pain is now better I do not think there is anything I could offer him at this time with a clinic appointment. Please advise him to continue to monitor his symptoms and if he is not comfortable with something tofollow-up in the clinic. Electronically signed by: Johnathan Guy D.O. 11/23/17 10:54 AM Telephone Encounter - Torri Rolle R.N. - 11/23/2017 9:44 AM CDT Patient was seen by Adelina on Monday for cellulitis. Was started on Doxycycline x 10 days and applying silvadene to the area. Patient was instructed to call if symptoms worsen by the end of the week. Patient reports the redness and swelling has improved. During the night, patient had severe pain (felt like pain in the bone) which awakened him. This morning he is doing well. Elevating the foot. Denies pain. Patient wants to know is it normal to feel this bone pain or should he be seen in clinic. Telephone Encounter - Marry Carolina - 11/23/2017 8:47 AM CDT Please do not reply to sender,emails are not monitored. Thank you. If you need a prescription refill please call your pharmacy. Please allow 3 business days for processing. Expert RN: N/A (Med Refill Only) Call Center Template: ??? May we leave a message for you on this phone? yes ??? What can I help you with today? Patient was seen on Monday for sore on foot and was told to contact nurses if it does not improve. ??? Please call patient when able. ??? Thank you. ??? If Medication Refill: o What is [...] you with today? Thank you for calling [facility]. documented in this encounter Plan of Treatment Upcoming Encounters Date Type Specialty Care Team Description 02/11/2022 Appointment Laboratory Medicine Neli Hearn M.D. [address] [place] [phone] (Wo verenice) 02/14/2022 Office Visit Family Medicine Lilli Hearn M.D. [address] [place] [phone] (Wo rk) documented as of this encounter Visit Diagnoses Not on filedocumented in this encounter Care Teams Fruit Farmer Relationship Specialty Start Date End Date Yolanda Colón APRN, C.N.P. PCP - General 09/08/16 documented as of this encounter
--- OUTSIDE RECORDS SUMMARY | 2021-12-28 10:00 | XMS_ITS | Encounter Summary ---
:1945 Author Organization [facility] Address [address] [place] [address] Care Team Providers Name Role Phone Yolanda Colón APRN, C.N.P. 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 [address] [facility] [phone] (Wo rk) 02/14/2022 Office Visit Family Medicine Lilli Hearn M.D. [address] [place] [phone] (Wo rk) documented as of this encounter Visit Diagnoses Not on filedocumented in this encounter Care Teams Food And Beverage Assistant Relationship Specialty Start Date End Date Yolanda Colón APRN, C.N.P. PCP - General 09/08/16 documented as of this encounter
--- OUTSIDE RECORDS SUMMARY | 2021-12-28 10:00 | XMS_ITS | Encounter Summary ---
:1945 Author Organization [facility] Address [address] [place] [address] Care Team Providers Name Role Phone Yolanda Colón APRN, C.N.P. Primary Care Provider [phone] Reason for Visit Reason Comments Med Refill Encounter Details Date Type Department Care Team Description 06/07/2017 Refill Department of Family Medicine Yolanda Colón APRN, Med Refill in [facility] thony C.N.P. 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 - 06/07/2017 3:30 PM CDT Unable to refill per protocol: Name of Medications Needing Refill: Bupropion, Fluticasone, Naproxen Additional Information: Yearly health exam needed per protocol. Patient was in on 03/14/18 for a Pre-op. Are ok with ordering? documented in this encounter Plan of Treatment Upcoming Encounters Date Type Specialty Care Team Description 02/11/2022 Appointment Laboratory Medicine Neli Hearn M.D. [address] [place] [phone] (Wo rk) 02/14/2022 Office Visit Family Medicine Lilli Hearn M.D. [address] [place] [phone] (Wo rk) documented as of this encounter Visit Diagnoses Not on filedocumented in this encounter Care Teams Shell Mold Bonder Relationship Specialty Start Date End Date Yolanda Colón APRN, C.N.P. PCP - General 09/08/16 documented as of this encounter
--- OUTSIDE RECORDS SUMMARY | 2021-12-28 10:00 | XMS_ITS | Encounter Summary ---
:1945 Author Organization [facility] Address [address] [place] [address] Care Team Providers Name Role Phone Yolanda Colón APRN, C.N.P. Primary Care Provider [phone] Reason for Visit Reason Comments Med Refill Encounter Details Date Type Department Care Team Description 03/14/2018 Refill Department of Family Medicine Yolanda Colón APRN, Med Refill in [facility] thony C.N.P. [address] [place], [place] [phone] [place] [phone] (Wo rk) Social History Tobacco Use Types [...] or relatives? How often do you attend denominational or 1 to 4 times per year 11/2019 buddhist services? 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 - 03/14/2018 4:11 PM CST Preop physical on 01/09/18 IAL AGENT [employer] documented in this encounter Plan of Treatment Upcoming Encounters Date Type Specialty Care Team Description 02/11/2022 Appointment Laboratory Medicine Neli Hearn M.D. [address] [place] [phone] (Wo rk) 02/14/2022 Office Visit Family Medicine Lilli Hearn M.D. [address] [place] [phone] (Wo rk) documented as of this encounter Visit Diagnoses Not on filedocumented in this encounter Additional Health Concerns Assessment Noted Time PHQ-9 Depression Total Score: 10 01/09/2018 10:48 AM C DT documented as of this encounter Care Teams Supervisory Air Intercept Controller Relationship Specialty Start Date End Date Yolanda Colón APRN, C.N.P. PCP - General 09/08/16 documented as of this encounter
--- OUTSIDE RECORDS SUMMARY | 2021-12-28 10:00 | XMS_ITS | Encounter Summary ---
:1945 Author Organization [facility] Address [address] [place] [address] Care Team Providers Name Role Phone Yolanda Colón APRN, C.N.P. 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 - 01/01/2018 12:55 PM CDT done Telephone Encounter - Torri Terry - 01/01/2018 11:52 AM CDT Medhat is calling in again to today to get the status of the test results needed for his upcoming surgery 01/03/2018. Please call [phone] Roslyn rendon Telephone Encounter - Tammy Gilman, C.M.AFamilia - 12/29/2017 10:26 AM CDT Checked status of report and as of this morning the report is not yet ready. Telephone Encounter - Gosia Mayer - 12/29/2017 8:30 AM CDT Communication message that does NOT pertain to Medication Refill: Offered ROSIE: Yes No____x_ Declined ROSIE: Yes No___x____ Call Center Template: ??? May we leave a message for you on this phone? What can I help you with today? The hospital in [place] is to be sending over EMG results to the clinic. He needs these for an appointment Jan 03 at the [facility]. Please call when the records are ready to be picked up. I will send this information to the appropriate staff member who will look into your concern. Is there anything else I can help you with today? Thank you for calling [facility]. documented in this encounter Plan of Treatment Upcoming Encounters Date Type Specialty Care Team Description 02/11/2022 Appointment Laboratory Medicine Neli Hearn M.D. [address] [place] [phone] (Wo rk) 02/14/2022 Office Visit Family Medicine Lilli Hearn M.D. [address] [place] [phone] (Wo rk) documented as of this encounter Visit Diagnoses Not on filedocumented in this encounter Care Teams Php Engineer Relationship Specialty Start Date End Date Yolanda Colón APRN, C.N.P. PCP - General 09/08/16 documented as of this encounter
--- OUTSIDE RECORDS SUMMARY | 2021-12-28 10:00 | XMS_ITS | Encounter Summary ---
:1945 Author Organization [facility] Address [address] [place] [address] Care Team Providers Name Role Phone Yolanda Colón APRN, C.N.P. Primary Care Provider [phone] Reason for Visit Reason Comments Numbness Temporomandibular Joint Pain Appointment Request (Routine) - Closed Specialty Diagnoses / Procedures Referred By Contact Refer red To Contact Family Medicine Referral ID Status Reason Start Date Expiration Date Visits Requ ested Visits Authorized [id number] Closed 08/29/2017 08/29/2018 1 1 Encounter Details Date Type Department Care Team Description 09/19/2017 Office Visit Department of Yolanda Craven Car pal Tunnel Syndrome Medicine in [place], C.N.P. Left (Primary Dx) Terri Michael a [address] [place] [phone] Social History Tobacco Use Types Packs/Day Years [...] 1 to 4 times per year 11/2019 samaritan services? 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 - 09/19/2017 11:15 AM CDT SUBJECTIVE CHIEF COMPLAINT / REASON FOR VISIT Cristi Macdonald is a 71 y.o. male who presents for evaluation of Numbness of left fingers. HISTORY OF PRESENT ILLNESS Medhat comes in today for complaints of numbness and tingling in his 1st 3 fingers of the left hand for the past 2 months. He notes weakness in the left hand and has been having a difficult type gripping, twisting of holding on to coffee cup. Denies pain. 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 He is right hand dominant. The numbness and tingling sensation is radiating up the left forearm. Denies any other concerns today. The following portions of the patient's history were reviewed and updated as appropriate: allergies,current medications, family history, medical history, social history, surgical history and problem list. REVIEW OF SYSTEMS General: No fever, chills or sweats. No body aches. HEENT: Denies blurred or double vision, nasal drainage or sore throat. Chest: No shortness of breath, cough or chest pain. GI/: No abdominal pain, nausea/vomiting/diarrhea. No dysuria or urinary frequency. Musculoskeletal: Denies any joint or muscle pain. Neurologic: As listed under the HPI. Denies headaches. OBJECTIVE BP 150/70 Pulse 75 Temp 36.8 ??C Wt (!) 147.1 kg SpO2 95% BMI 47.47 kg/m?? PHYSICAL EXAM General: Patient is alert, oriented x 3 and in no acute distress. HEENT: Conjunctiva, TMs, nasal mucosa are clear. Pharynx is clear without tonsillar adenopathy or exudate. Neck is nontender without cervical adenopathy. Musculoskeletal: Oral Therapist strength is equal bilaterally. Positive Tinel sign left wrist. No decreased range of motion of wrist. Mild tenderness is noted along palpation of the carpal tunnel of the left wrist. Neurologic: No focal motor weakness. Sensation is slightly decreased in the 1st 3 fingers of the left hand. ASSESSMENT / PLAN 1. Carpal Tunnel Syndrome Left Etiology, treatment options and further testing were reviewed. Patient would like to try a carpal tunnel brace to be worn at least 8 hr of the day. He was fitted here with an extra-large left wrist brace and during the next 10 min of our visit he stated that he could actually feel the sensation going back into his fingers. He will try this for the next 2-4 weeks and if he is not noticing continued improvement, he will call or return would consider an EMG at that time. We discussed anti-inflammatories and patient would like to hold off on adding any more medications at this time. Ice to the area as well as some stretching exercises can be performed as directed. He will follow up in 2-4 weeks if notimproving. Handout information was provided on carpal tunnel syndrome. documented in this encounter Plan of Treatment Upcoming Encounters Date Type Specialty Care Team Description 02/11/2022 Appointment Laboratory Medicine Neli Hearn M.D. [address] [place] [phone] (Wo rk) 02/14/2022 Office Visit Family Medicine Lilli Hearn M.D. [address] [place] [phone] (Wo rk) documented as of this encounter Visit Diagnoses Diagnosis Carpal Tunnel Syndrome Left - Primary documented in this encounter Care Teams Php Developer Relationship Specialty Start Date End Date Yolanda Colón APRN, C.N.P. PCP - General 09/08/16 documented as of this encounter
--- OUTSIDE RECORDS SUMMARY | 2021-12-28 10:00 | XMS_ITS | Encounter Summary ---
:1945 Author Organization [facility] Address [address] [place] [address] Care Team Providers Name Role Phone Yolanda Colón APRN, C.N.P. Primary Care Provider [phone] Reason for Visit Reason Comments Med Refill Encounter Details Date Type Department Care Team Description 02/13/2018 Refill Department of Family Medicine Yolanda Colón APRN, Med Refill in [facility] thony C.N.P. 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 - 02/13/2018 3:27 PM CST Last office visit 01/09/2018 BAILER documented in this encounter Plan of Treatment Upcoming Encounters Date Type Specialty Care Team Description 02/11/2022 Appointment Laboratory Medicine Neli Hearn M.D. [address] [place] [phone] (Wo rk) 02/14/2022 Office Visit Family Medicine Lilli Hearn M.D. [address] [place] [phone] (Wo rk) documented as of this encounter Visit Diagnoses Not on filedocumented in this encounter Additional Health Concerns Assessment Noted Time PHQ-9 Depression Total Score: 10 01/09/2018 10:48 AM C DT documented as of this encounter Care Teams International Affairs Vice President Relationship Specialty Start Date End Date Yolanda Colón APRN, C.N.P. PCP - General 09/08/16 documented as of this encounter
--- OUTSIDE RECORDS SUMMARY | 2021-12-28 10:00 | XMS_ITS | Encounter Summary ---
:1945 Author Organization [facility] Address [address] [place] [address] Care Team Providers Name Role Phone Yolanda Colón APRN, C.N.P. Primary Care Provider [phone] Reason for Visit Reason Comments Skin Tag Lt eye skin tag removal Outpatient (Routine) - Closed Specialty Diagnoses / Procedures Referred By Contact Refer red To Contact Family Medicine Yolanda Colón APRN, [facility] [address] [facility] C.N.P. [address] [place] [phone] Referral ID Status Reason Start Date Expiration Date Visits Requ ested Visits Authorized [id number] Closed 11/21/2017 11/21/2018 1 1 Encounter Details Date Type Department Care Team Description 11/22/2017 Office Visit Department of Family Fritz Carcamo, Tag Skin Accessory Medicine in [place] [address] [place] [phone] Social History Tobacco Use Types Packs/Day Years [...] or relatives? How often do you attend baptism or 1 to 4 times per year 11/2019 restoration services? Do you belong to any clubs or No 12/04/2019 organizations such as baptism groups, unions, fraGe.tt or athletic groups, or school groups? 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 - 11/22/2017 4:15 PM CDT SUBJECTIVE CHIEF COMPLAINT/REASON FOR VISIT Chief Complaint Patient presents with ??? Skin Tag Lt eye skin tag removal HISTORY OF PRESENT ILLNESS Cristi Macdonald is a 72 y.o. male who presents for recheck of skin tags on the left eye upper eyelid he was previously seen and excision was discussed. He is here to have 2 skin tags removed from the left upper eyelid. ALLERGIES/CONTRAINDICATIONS Allergies Allergen Reactions ??? Acetaminophen Other (see comments) ??? Sulfa (Sulfonamide Antibiotics) Anxiety CURRENT MEDICATIONS Current Outpatient Prescriptions: ??? amLODIPine (for_NORVASC) 5 mg tablet, TAKE 1 TABLET BY MOUTH ONCE DAILY, Disp: 90 tablet, Rfl: 3 ??? aspirin 81 mg capsule, Take 1 tablet by mouth daily., Disp: , Rfl: ??? B.ANI/L.ACI/L.DEYVI/L.PLAN/L.COURTNEY (PROBIOTIC FORMULA ORAL), Take 1 capsule by mouth daily., Disp: ,Rfl: ??? buPROPion (for_WELLBUTRIN SR) 150 mg 12 hr tablet, TAKE ONE (1) TABLET BY MOUTH TWICE DAILY, Disp: 180 tablet, Rfl: 3 ??? diclofenac sodium (VOLTAREN) 1 % gel, Apply 3-4 times a day to lower back as needed., Disp: 60 g, Rfl: 1 ??? doxycycline (VIBRAMYCIN) 100 mg capsule, Take 1 capsule (100 mg total) by mouth 2 (two) times a day for 7 days., Disp: 14 capsule, Rfl: 0 ??? fluticasone (for_FLONASE) 50 mcg/actuation nasal spray, 1 SPRAY NASAL DAILY., Disp: 48 g, Rfl: 11 ??? GLUCOSAMINE/CHONDR NOONAN A SOD (OSTEO BI-FLEX ORAL), Take 1 tablet by mouth 2 (two) times a day., Disp: , Rfl: ??? losartan-hydroCHLOROthiazide (for_HYZAAR) 100-25 mg per tablet, TAKE 1 TABLET BY MOUTH EVERY DAY, Disp: 90 tablet, Rfl: 3 ??? MULTIVITAMIN WITH MINERALS ORAL, Take 1 tablet by mouth daily., Disp: , Rfl: ??? nabumetone (for_RELAFEN) 500 mg tablet, Take 1 tablet by mouth 2 (two) times a day as needed., Disp: , Rfl: ??? naproxen (NAPROSYN) 500 mg tablet, Take 500 mg by mouth daily., Disp: , Rfl: ??? omega-3 fatty acids (FISH OIL) 500 mg capsule, Take 2 tablets by mouth daily., Disp: , Rfl: ??? omeprazole (for_PriLOSEC) 20 mg capsule, TAKE ONE (1) CAPSULE BY MOUTH DAILY, Disp: 90 capsule, Rfl: 3 ??? pravastatin (for_PRAVACHOL) 80 mg tablet, TAKE ONE (1) tablet BY MOUTH AT BEDTIME, Disp: 90 tablet, Rfl: 3 ??? terazosin (for_HYTRIN) 1 mg capsule, TAKE ONE (1) CAPSULE BY MOUTH AT BEDTIME, Disp: 90 capsule,Rfl: 3 MEDICAL HISTORY Patient Active Problem List Diagnosis ??? Hypertension ??? Morbid Obesity Body Mass Index Greater Than Or Equal To 40 Adult (HCC) ??? Impaired fasting glucose ??? Gastroesophageal Reflux Disease NOS ??? Hypercholesterolemia ??? Obstructive Sleep Apnea Adult ??? Poliomyelitis Myelitis Personal History ??? Psoriasis ??? Hypothyroidism REVIEW OF SYSTEMS All other systems are negative. OBJECTIVE VITAL SIGNS BP 138/78 Pulse 72 Ht 176 cm Wt (!) 150 kg SpO2 93% BMI 48.43 kg/m?? PHYSICAL EXAMINATION General: Alert, in no apparent distress, nontoxic appearing. Mood and affect were appropriate to thesituation. HEENT: No pallor or icterus. Conjunctivae and sclerae clear without redness or drainage. Nares patent bilaterally. Skin: [place], warm, dry and intact with no rashes noted. 2 pedunculated skin tags 1 on the medial aspect of the left upper lid and 1 on the lateral aspect. None affect the mucosal surface. Neurologic: No focal deficits. Sensorimotor function was intact in the bilateral upper and lower extremities. Pupils were equal, round, and reactive to light. Normal gait and posture noted. ASSESSMENT / PLAN Benign skin tags left upper eyelid. Plan: Please see procedure note for details and follow-up instructions. documented in this encounter Procedure Notes Fritz Carcamo M.D. - 11/22/2017 4:15 PM CDT Procedures patient has been advised about risks and complications of removing skin tags from the left upper eyelid using a destructive method under local anesthetic. He wishes to proceed today. [place] precautions utilized. Site prepped with chlorhexidine. Informed consent/written and procedural time-out is completed. Local infiltrate 1% lidocaine 0.5 mL in 2 locations on the left upper eyelid for total of 1 mL. Using a forceps and scissors I excised to pedunculated skin skin tag. The base was topically treatedwith aluminum chloride for cautery. Patient tolerated this procedure without complication. Wound care instructions were given can wash with soap and water starting tomorrow. No pallor pathology was requested. documented in this encounter Plan of Treatment Upcoming Encounters Date Type Specialty Care Team Description 02/11/2022 Appointment Laboratory Medicine Neli Hearn M.D. [address] [place] [phone] (Wo rk) 02/14/2022 Office Visit Family Medicine Lilli Hearn M.D. [address] [place] [phone] (Wo rk) documented as of this encounter Visit Diagnoses Diagnosis Tag Skin Accessory documented in this encounter Care Teams Android Software Engineer Relationship Specialty Start Date End Date Yolanda Colón APRN, C.N.P. PCP - General 09/08/16 documented as of this encounter
--- OUTSIDE RECORDS SUMMARY | 2021-12-28 10:00 | XMS_ITS | Encounter Summary ---
:1945 Author Organization [facility] Address [address] [place] [address] Care Team Providers Name Role Phone Yolanda Colón APRN, C.N.P. Primary Care Provider [phone] Reason for Visit Reason Comments Pre-op Exam Lt Carpal tunnel surgery Dr Familia Rizo at the [facility] on 01/18 Anxiety Encounter Details Date Type Department Care Team Description 01/09/2018 Office Visit Department of Family Yolanda Colón Pre operative Exam (Primary Dx); Medicine in [place], [place], C.N.P. Carpal Tunnel Syndrome Left; [place] [address] Anxiety; [address] [place], [place] [phone] Social History Tobacco Use Types Packs/Day Years [...] or relatives? How often do you attend scientology or 1 to 4 times per year 11/2019 jain services? 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 - 01/09/2018 10:45 AM CDT SUBJECTIVE CHIEF COMPLAINT Chief Complaint Patient presents with ??? Pre-op Exam Lt Carpal tunnel surgery Dr. Rizo at the [facility] on 01/18 ??? Anxiety HISTORY OF PRESENT ILLNESS Cristi Macdonald is a 72 y.o. male who presents for a preoperative evaluation. He is scheduled for a Left carpal tunnel repair on 01/16/[address] Campoverde at [facility]. He has has current concerns of increasing anxiety. Patient is a pleasant 72-year-old male with a history of hypertension, hyperlipidemia, sleep apnea and morbid obesity with a BMI greater than 49.3. He has been having weakness and numbness in his left hand for several months and has been evaluated by surgeon and is scheduled for the left carpal tunnel repair. Patient denies any current pain at this time but notices weakness and dropping items frequently. Over the past several months, he has had his anxiety increasing and he complains of excessive worrying. He denies signs and symptoms of depression b ut feels his anxiety medication is not helping him and off. He states it is affecting his sleep. Denies any other concerns or complaints today. The following portions of the patient's history were reviewed and updated as appropriate: Allergies,Current Medications, Medical History, Surgical History, Family History and Social History, and are outlined below. He is not aware of a family history of sudden cardiac , malignant hyperthermia, or other anesthesia complications.. Personal or family history of bleeding or clotting disorders: No. History of blood transfusion: transfusion(s): No. He has no reported personal history of complications from anesthesia. Preoperative functional assessment: good, no symptoms with moderate exertion. No history of cardiac disease, kidney disease, anemia, seizure, or liver disease. No previous history of asthma. Patient does have sleep apnea and is controlled with CPAP. Last echocardiogram week 01/2017- EF 65% with no evidence of ischemia REVIEW OF SYSTEMS Constitutional: Negative for fatigue, fever, loss of appetite and night sweats. Skin: Negative for skin rash. Eyes: Negative for visual problems. ENT: Negative for difficulty hearing, persistent hoarse voice and sinus congestion. Respiratory: Negative for coughing up mucus (phlegm), dry cough, dyspnea and wheezing. Cardiovascular: Negative for chest pain, pressure or tightness, rapid or fluttering heart beat and shortness of breath when lying flat. Gastrointestinal: Positive for vomiting. Negative for diarrhea, heartburn and nausea. Genitourinary: Negative for difficulty urinating and pain with urination. Hematologic: Negative for bruises or bleeds easily. Musculoskeletal: Positive for back pain. Negative for arthralgias, pain or stiffness in the joints and muscle pain/stiffness. Neurological: Positive for weakness in arms or legs (Left hand). Negative for loss of consciousness,light-headedness and headaches. Psychiatric/Behavioral: Positive for feeling nervous, anxious, or on edge in past two weeks. The following screenings were completed: ALIYAH-7 Total Score (max 21): 9 PHQ-9 Total Score (max 27): 10 (01/09/18 1048) PHQ-2 Score: 2 PROBLEM LIST Patient Active Problem List Diagnosis ??? Hypertension ??? Morbid Obesity Body Mass Index Greater Than Or Equal To 40 Adult (HCC) ??? Gastroesophageal Reflux Disease NOS ??? Hypercholesterolemia ??? Obstructive Sleep Apnea Adult ??? Psoriasis ??? Hypothyroidism MEDICATIONS Current Outpatient Prescriptions on File Prior to Visit Medication Sig Dispense Refill ??? amLODIPine (for_NORVASC) 5 mg tablet TAKE 1 TABLET BY MOUTH ONCE DAILY 90 tablet 3 ??? B.ANI/L.ACI/L.DEYVI/L.PLAN/L.COURTNEY (PROBIOTIC FORMULA ORAL) Take 1 capsule by mouth daily. ??? buPROPion (for_WELLBUTRIN SR) 150 mg 12 hr tablet TAKE ONE (1) TABLET BY MOUTH TWICE DAILY 180 tablet 3 ??? diclofenac sodium (VOLTAREN) 1 % gel Apply 3-4 times a day to lower back as needed. 60 g 1 ??? fluticasone (for_FLONASE) 50 mcg/actuation nasal spray 1 SPRAY NASAL DAILY. 48 g 11 ??? GLUCOSAMINE/CHONDR NOONAN A SOD (OSTEO BI-FLEX ORAL) Take 1 tablet by mouth 2 (two) times a day. ??? losartan-hydroCHLOROthiazide (for_HYZAAR) 100-25 mg per tablet TAKE 1 TABLET BY MOUTH EVERY DAY 90 tablet 3 ??? MULTIVITAMIN WITH MINERALS ORAL Take 1 tablet by mouth daily. ??? naproxen (NAPROSYN) 500 mg tablet Take 500 mg by mouth daily. ??? omega-3 fatty acids (FISH OIL) 500 mg capsule Take 2 tablets by mouth daily. ??? omeprazole (for_PriLOSEC) 20 mg capsule TAKE ONE (1) CAPSULE BY MOUTH DAILY 90 capsule 3 ??? pravastatin (for_PRAVACHOL) 80 mg tablet TAKE ONE (1) tablet BY MOUTH AT BEDTIME 90 tablet 3 ??? terazosin (for_HYTRIN) 1 mg capsule TAKE ONE (1) CAPSULE BY MOUTH AT BEDTIME 90 capsule 3 ??? aspirin 81 mg capsule Take 1 tablet by mouth daily. ALLERGIES Allergies Allergen Reactions ??? Acetaminophen Other (see comments) ??? Sulfa (Sulfonamide Antibiotics) Anxiety PAST MEDICAL HISTORY Past Medical History: Diagnosis Date ??? Gastroesophageal Reflux Disease NOS 09/04/2006 ??? Hypercholesterolemia 06/07/2012 ??? Hypertension 06/07/2012 Hypertension Essential (401.9) ??? Hypothyroidism 09/03/2007 ??? Morbid Obesity Body Mass Index Greater Than Or Equal To 40 Adult (HCC) 04/16/2015 Morbid Obesity Body Mass Index (BMI) >40 Adult ??? Obstructive Sleep Apnea Adult 07/21/2016 ??? Poliomyelitis Myelitis Personal History 09/04/2006 No personal history of anesthesia complication or bleeding/clotting disorder. PAST SURGICAL HISTORY Past Surgical History: Procedure Laterality Date ??? BACK SURGERY ??? HERNIA REPAIR N/A Hernia repair No family history of anesthesia complication or bleeding/clotting disorder. FAMILY HISTORY: Family History Problem Relation Age of Onset ??? Coronary artery disease Father ??? Breast cancer Mother ??? Dementia Mother ??? Prostate cancer Brother SOCIAL HISTORY Social History Social History ??? Marital status: Spouse name: N/A ??? Number of children: N/A ??? Years of education: N/A Social History Main Topics ??? Smoking status: Former Smoker ??? Smokeless tobacco: Former User ??? Alcohol use Yes OBJECTIVE VITAL SIGNS BP 140/80 (Cuff Size: Large) Pulse 80 Temp 37 ??C (Temporal) Ht 176 cm Wt (!) 152.9 kg SpO2 95% BMI 49.35 kg/m?? PHYSICAL EXAM General: Patient is a pleasant, cooperative 72 y.o. year old male. He is alert, oriented x3, well-groomed, and reliable historian. He is in no acute distress. Skin: Color pink, warm, dry, and intact. No rashes or lesions noted. HEENT: Head: atraumatic, normocephalic. PERRLA, Conjunctivae clear, TM's, Nasal mucosa clear.Oral mucosa pink and moist without lesions present, posterior pharynx is pink without exudate or swelling, teeth are in good repair. Neck: Trachea is midline, no lymphadenopathy. No carotid bruits bilateral. Cardiovascular: Heart rate and rhythm regular. S1S2 heard with no abnormal heart sounds. No edema. Radial and pedal pulses 2+. Capillary refill brisk. Respiratory: Respirations regular and unlabored. Lungs are clear to auscultation bilaterally. Abdomen: Abdomen is soft, symmetric. Bowel sounds are active x 4. No palpable masses, tenderness, ororganomegaly noted on palpation. Extremities: [place] and warm. No edema. Neuro: Gait is smooth and coordinated. Strength and sensation are grossly normal in all 4 extremities. Patellar reflex 2+ bilateral. Affect: Patient does appear anxious today. He does maintain good eye contact. DIAGNOSTICS ASSESSMENT / PLAN #1 Preoperative Exam #2 Carpal Tunnel Syndrome Left The patient is scheduled for a low risk procedure. He is a low risk candidate for the upcoming procedure. ASA 2 - Patient with mild systemic disease with no functional limitations. Medhat is medically optimized to proceed with surgery and anesthesia. Patient is advised to hold his aspirin and Aleve 7 days prior to his procedure, he will also hold the losartan/hydrochlorothiazide the morning of surgery -please notify surgeon of any fever, cold symptoms if they should develop. No food or water the morning of surgery. #3 Anxiety -stress relieving techniques were reviewed -advised to decrease caffeine intake -patient is not interested in starting a new medication at this time, will increase his Wellbutrin SR to 300 mg in the morning and 150 in the evening. If he is not noticing improvement in his anxiety in the next 1-2 weeks, patient will touch base with me and would consider adding BuSpar. All questions were answered. The patient verbalized understanding and agreement with the above plan. documented in this encounter Plan of Treatment Upcoming Encounters Date Type Specialty Care Team Description 02/11/2022 Appointment Laboratory Medicine Neli Hearn M.D. [address] [place] [phone] (Wo rk) 02/14/2022 Office Visit Family Medicine Lilli Hearn M.D. [address] [place] [phone] (Wo verenice) documented as of this encounter Procedures Procedure Name Priority Date/Time Associated Diagnosis Comme nts HEMOGLOBIN A1C, B Routine 01/09/2018 11:11 Preoperative Exam Results for this AM CDT Impaired Fasting procedure a re in Glucose the results section. BASIC METABOLIC Routine 01/09/2018 11:11 Preoperative Exam Res ults for this PANEL, S/P AM CDT procedure are i n the results section. documented in this encounter Results (ABNORMAL) Hemoglobin A1c (01/09/2018 11:11 AM CDT) P athologist Signature Hemoglobin A1c, 6.8 (H) 4.2 - 5.6 01/09/2018 [facility] B % 4:25 PM [facility] Comment: Hemoglobin A1c values greater than or eq ual to 6.5 percent are diagnostic for diabetes mellitus. ?? Diagnosis should be confirmed by repeat testing. ??In diabet ic patients, HbA1c goals should be discussed with healthcar e provider. Specimen Anatomical Collection Method Collection Time Receive d Time (Source) Location / / Volume Laterality Blood (Blood, 01/09/2018 11:11 01/09/2018 3:49 Venous) AM CDT PM CDT Linda Villatoro APRNN.P. LAB BLOOD ADD-ON Performing Organization Address City/State/ZIP Code Phon e Number [facility] [address] [place] [address] [place] [facility] Basic Metabolic Panel (01/09/2018 11:11 AM CDT) P athologist Signature Potassium, S 4.0 3.6 - 5.2 01/09/2018 [facility] mmol/L 4:33 PM [facility] Sodium, S 139 135 - 145 01/09/2018 [facility] mmol/L 4:33 PM [facility] Chloride, S 99 98 - 107 01/09/2018 [facility] mmol/L 4:33 PM [facility] Bicarbonate, S 27 22 - 29 01/09/2018 [facility] mmol/L 4:33 PM [facility] Anion Gap 13 7 - 15 01/09/2018 [facility] 4:33 PM [facility] BUN (Blood Urea 19 8 - 24 01/09/2018 [facility] Nitrogen), S mg/dL 4:33 PM [facility] Creatinine 0.92 0.74 - 01/09/2018 [facility] 1.35 mg/dL 4:33 PM [facility] eGFR-Non 84 >=60 01/09/2018 [facility] Black/ mL/min/BSA 4:33 PM [facility] Comment: ----ADDITIONAL INFORMATION---- Estimated GFR calculated using the 2009 CKD_EPI creatinine equation. eGFR-Black/ >90 >=60 mL/min/BSA 2017 4:33 PM [facility] Comment: ----ADDITIONAL INFORMATION---- Estimated GFR calculated using the 2009 CKD_EPI creatinine equation. Calcium, Total, S 9.9 8.8 - 10.2 mg/dL 01/09/2018 4 :33 PM CDT [facility] Glucose, S 134 70 - 140 mg/dL 01/09/2018 4:33 PM CDT [facility] [place] [facility] Specimen Anatomical Collection Method Collection Time Receive d Time (Source) Location / / Volume Laterality Blood (Blood, 01/09/2018 11:11 01/09/2018 3:49 Venous) AM CDT PM CDT Yolanda Colón APRN, C.N.P. LAB BLOOD ADD-ON Performing Organization Address City/State/ZIP Code Phon e Number [facility] [address] [place], [place] [id number] [place] [address] LAB documented in this encounter Visit Diagnoses Diagnosis Preoperative Exam - Primary Carpal Tunnel Syndrome Left Anxiety Impaired Fasting Glucose documented in this encounter Additional Health Concerns Assessment Noted Time PHQ-9 Depression Total Score: 10 01/09/2018 10:48 AM C DT documented as of this encounter Care Teams Instrumentation Fitter Relationship Specialty Start Date End Date Yolanda Colón APRN, C.N.P. PCP - General 09/08/16 documented as of this encounter
--- OUTSIDE RECORDS SUMMARY | 2021-12-28 10:00 | XMS_ITS | Encounter Summary ---
:1945 Author Organization [facility] Address [address] [place] [address] Care Team Providers Name Role Phone Yolanda Colón APRN, C.N.P. Primary Care Provider [phone] Reason for Visit Reason Comments Med Refill Encounter Details Date Type Department Care Team Description 05/08/2017 Refill Department of Family Medicine Yolanda Colón APRN, Med Refill in [facility] thony C.N.P. [address] [place], [place] [phone] [place] [phone] (Wo rk) Social History Tobacco Use Types [...] or relatives? How often do you attend uatsdin or 1 to 4 times per year 11/2019 zoroastrian services? 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 - 05/08/2017 4:07 PM CST Patient is due to be seen. EM SPECIALIST documented in this encounter Plan of Treatment Upcoming Encounters Date Type Specialty Care Team Description 02/11/2022 Appointment Laboratory Medicine Neli Hearn M.D. [address] [place] [phone] (Wo rk) 02/14/2022 Office Visit Family Medicine Lilli Hearn M.D. [address] [place] [phone] (Wo rk) documented as of this encounter Visit Diagnoses Not on filedocumented in this encounter Care Teams Educational Psychologist Relationship Specialty Start Date End Date Yolanda Colón APRN, C.N.P. PCP - General 09/08/16 documented as of this encounter
--- OUTSIDE RECORDS SUMMARY | 2021-12-28 10:00 | XMS_ITS | Encounter Summary ---
:1945 Author Organization [facility] Address [address] [place] [address] Care Team Providers Name Role Phone Yolanda Colón APRN, C.N.P. Primary Care Provider [phone] Reason for Visit Reason Comments Follow-up cellulitis Appointment Request (Routine) - Closed Specialty Diagnoses / Procedures Referred By Contact Refer red To Contact Family Medicine Referral ID Status Reason Start Date Expiration Date Visits Requ ested Visits Authorized [id number] Closed 11/28/2017 11/28/2018 1 Encounter Details Date Type Department Care Team Description 11/28/2017 Office Visit Department of Family Meri Estevez, Marybeth ulitis Leg Right (Primary Dx); Medicine in [place], C.N.P. Wound Lower Leg Open Initial Right MichaelTerri [address] [place] [phone] Social History Tobacco Use Types Packs/Day Years [...] 1 to 4 times per year 11/2019 holiness services? 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 - 11/28/2017 10:15 AM CDT SUBJECTIVE CHIEF COMPLAINT / REASON FOR VISIT Follow-up (cellulitis) HISTORY OF PRESENT ILLNESS Cristi Macdonald is a 72 y.o. male who presents for follow-up on right leg cellulitis. Patient reports his foot slipped when he was driving his tractor and his right leg got struck by the pedal. He states it hurt at the time and then later noticed that he had a large blister. Since then the blister opened and started draining purulent drainage. Patient started having redness and swelling of the right lower leg. Patient was seen in clinic 1 week ago and started on doxycycline and Silvadene cream. He states he is now having more pain. He states it feels like a shooting pain at times going up his leg. He is no longer having any purulent drainage. He states the redness is about the same. He took the full course of doxycycline. Review of Systems Denies fevers, chills, numbness, tingling. The following portions of the patient's history were reviewed and updated as appropriate: allergies,current medications, social history, surgical history and problem list OBJECTIVE BP 144/80 Pulse 72 Temp 37 ??C Wt (!) 152.2 kg SpO2 95% BMI 49.14 kg/m?? PHYSICAL EXAM General Appearance: awake, alert, oriented, in no acute distress Skin: Patient has about 3 cm round open wound that is superficial. There is some mild erythema with no warmth around the wound. There is some slight edema of the right leg but nothing significant. The wound is located on the inner aspect of the right lower leg just proximal to the ankle. No purulent drainage or odor. Lungs: Breathing Pattern: regular, no distress ASSESSMENT / PLAN 1. Cellulitis Leg Right 2. Wound Lower Leg Open Initial Right Yolanda Colón CNP was able to come in and look at his wound to compare to last week. She does feel that there is improvement. I think at this point will increase the doxycycline for another week andcontinue with the Silvadene cream. Provided patient with reassurance. Discussed signs and symptoms that warrant further evaluation. He he is not having further improvement in the next week he will needto be re-evaluated. - doxycycline (VIBRAMYCIN) 100 mg capsule; Take 1 capsule (100 mg total) by mouth 2 (two) times a day for 7 days. Dispense: 14 capsule; Refill: 0 All of patient's questions were answered. Patient is agreeable with plan outlined above. Patient will return to clinic if symptoms do not improve as expected or become worse. documented in this encounter Plan of Treatment Upcoming Encounters Date Type Specialty Care Team Description 02/11/2022 Appointment Laboratory Medicine Neli Hearn M.D. [address] [place] [facility] [place] [phone] (Stephon caldera) 02/14/2022 Office Visit Family Medicine Lilli Hearn M.D. [address] [place] [facility] [phone] (Stephon caldera) documented as of this encounter Visit Diagnoses Diagnosis Cellulitis Leg Right - Primary Wound Lower Leg Open Initial Right documented in this encounter Care Teams Professor Of Early Childhood Education Relationship Specialty Start Date End Date Yolanda Colón APRN, C.N.P. PCP - General 09/08/16 documented as of this encounter
--- OUTSIDE RECORDS SUMMARY | 2021-12-28 10:00 | XMS_ITS | Encounter Summary ---
:1945 Author Organization [facility] Address [address] [place] [address] Care Team Providers Name Role Phone Yolanda Colón APRN, C.N.P. Primary Care Provider [phone] Encounter Details Date Type Department Care Team Description 08/15/2017 Hospital Encounter Department of Katarzyna, Diabetes Mellitus Laboratory Medicine Yolanda Hart APRN, Type 2 (HCC) in [place], C.N.. [place] [address] [facility] [address] [place] [phone] Social History Tobacco Use Types Packs/Day Years [...] or relatives? How often do you attend muslim or 1 to 4 times per year 11/2019 catholic services? 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 B.ANI/L.ACI/L.DEYVI/L.PLAN/L Take 1 capsule by 0 04/11/2018 .COURTNEY (PROBIOTIC FORMULA mouth daily. ORAL) buPROPion (for_WELLBUTRIN TAKE ONE (1) 180 tablet 3 06/08/19 18 02/13/2018 SR) 150 mg 12 hr tablet TABLET BY MOUTH TWICE DAILY fluticasone (for_FLONASE) 1 SPRAY NASAL 48 g 11 018 06/12/2018 50 mcg/actuation nasal DAILY. spray losartan-hydroCHLOROthiazi TAKE 1 TABLET BY 90 tablet 3 03/14/2018 de (for_HYZAAR) 100-25 mg MOUTH EVERY DAY per tablet methylPREDNISolone Take 4 mg by mouth 0 09/19/2017 (for_MEDROL DOSEPACK) 4 mg 2 (two) times a tablet day. follow package directions nabumetone (for_RELAFEN) Take 1 tablet by 0 08/1001/09/2018 500 mg tablet mouth 2 (two) times a day as needed. naproxen (for_NAPROSYN) TAKE ONE (1) 180 tablet 3 06/07/2017 09/19/2017 500 mg tablet tablet BY MOUTH TWICE DAILY NEEDED FOR PAIN omeprazole (for_PriLOSEC) TAKE ONE (1) 90 capsule 3 03/21/20 17 07/03/2018 20 mg capsule CAPSULE BY MOUTH DAILY pravastatin TAKE ONE (1) 90 tablet 3 05/09/2017 04/28/2018 (for_PRAVACHOL) 80 mg tablet BY MOUTH AT tablet BEDTIME terazosin (for_HYTRIN) 1 TAKE ONE (1) 90 capsule 3 8 05/28/2018 mg capsule CAPSULE BY MOUTH AT BEDTIME documented as of this encounter Plan of Treatment Upcoming Encounters Date Type Specialty Care Team Description 02/11/2022 Appointment Laboratory Medicine Neli Hearn M.D. [address] [place] [phone] (Wo rk) 02/14/2022 Office Visit Family Medicine Lilli Hearn M.D. [address] [place] [phone] (Stephon rk) documented as of this encounter Procedures Procedure Name Priority Date/Time Associated Diagnosis Comme nts HEMOGLOBIN A1C, B Routine 08/15/2017 8:32 AM Diabetes Mellitus Results for this CDT Type 2 (HCC) procedure are i n the results section. documented in this encounter Results (ABNORMAL) Hemoglobin A1c (08/15/2017 8:32 AM CDT) P athologist Signature Hemoglobin A1c, 6.2 (H) 4.2 - 5.6 08/15/2017 [facility] B % 12:08 PM CDT [facility] Comment: Hemoglobin A1c values of 5.7-6.4 percent indicate an increased risk for developing diabetes bolivar sanchez. In diabetic patients, HbA1c goals should be discussed with healthcare provider. Specimen Anatomical Collection Method Collection Time Receive d Time (Source) Location / / Volume Laterality Blood (Blood, 08/15/2017 8:32 AM 08/16/19 18 Venous) CDT 11:12 AM CDT Yolanda Colón APRN C.N.P. LAB BLOOD ADD-ON Performing Organization Address City/State/ZIP Code Phon e Number [place] [address] [place] [address] [facility] documented in this encounter Visit Diagnoses Diagnosis Diabetes Mellitus Type 2 (HCC) documented in this encounter Care Teams Integration Aide Relationship Specialty Start Date End Date Yolanda Colón APRN, C.N.P. PCP - General 09/08/16 documented as of this encounter
--- OUTSIDE RECORDS SUMMARY | 2021-12-28 10:00 | XMS_ITS | Encounter Summary ---
:1945 Author Organization [facility] Address [address] [place] [address] Care Team Providers Name Role Phone Yolanda Colón APRN, C.N.P. Primary Care Provider [phone] Encounter Details Date Type Department Care Team Description 11/28/2017 Nurse [facility]riage [facility] [place] [facility] [address] [place] [address] Social History Tobacco Use Types [...] 1 to 4 times per year 11/2019 pentecostal services? 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 [address] [place] [phone] (Wo rk) 02/14/2022 Office Visit Family Medicine Lilli Hearn M.D. [address] [place] [phone] (Wo rk) documented as of this encounter Visit Diagnoses Not on filedocumented in this encounter Care Teams Skip Hoist Engineer Relationship Specialty Start Date End Date Yolanda Colón APRN, C.N.P. PCP - General 09/08/16 documented as of this encounter
--- OUTSIDE RECORDS SUMMARY | 2021-12-28 10:00 | XMS_ITS | Encounter Summary ---
:1945 Author Organization [facility] Address [address] [place] [address] Care Team Providers Name Role Phone Yolanda Colón APRN, C.N.P. Primary Care Provider [phone] Reason for Referral Outpatient (Routine) - Closed Specialty Diagnoses / Procedures Referred By Contact Refer red To Contact Family Medicine Yolanda Colón APRN, [facility] C.N.P. [address] [place] [phone] Referral ID Status Reason Start Date Expiration Date Visits Requ ested Visits Authorized [id number] Closed 11/21/2017 11/21/2018 1 1 Scheduling Instructions Lesion removal on left eyelid utpatient (Routine) - Closed Specialty Diagnoses / Procedures Referred By Contact Refer red To Contact Diagnoses Carpal Tunnel Syndrome Bilateral Yolanda Colón Muench, Clinton A, M. D. APRN, C.N.P. [address] [facility] [address] [place] [address] [place], [place] Phone: [phone] [facility] [phone] Referral ID Status Reason Start Date Expiration Visits Visits Date Requested Authorized [id number] Closed Patient 11/21/2017 11/21/2018 1 1 Preference Reason for Visit Reason Comments Carpal Tunnel Lt. Skin Tag Rt. eye Appointment Request (Routine) - Closed Specialty Diagnoses / Procedures Referred By Contact Refer red To Contact Family Medicine Referral ID Status Reason Start Date Expiration Date Visits Requ ested Visits Authorized [id number] Closed 11/13/2017 11/13/2018 1 1 Encounter Details Date Type Department Care Team Description 11/21/2017 Office Visit Department of [facility] Yolanda Colón Car pal Tunnel Syndrome Bilateral (Primary Dx); Medicine in [place], LIABILITY CLAIMS MANAGER, C.N.P. Cellulitis Terri Michael a [address] [place], [place] [phone] Social History Tobacco Use Types Packs/Day Years [...] 1 to 4 times per year 11/2019 scientologist services? 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 - 11/21/2017 2:30 PM CDT SUBJECTIVE CHIEF COMPLAINT / REASON FOR VISIT Cristi Macdonald is a 72 y.o. male who presents for evaluation of Carpal Tunnel (Lt.) and Skin Tag (Rt. eye) HISTORY OF PRESENT ILLNESS 72-year-old male is here for multiple concerns. 1. Continued left carpal tunnel syndrome pain. He was using the braces that were provided here at the clinic for approximately 2-3 weeks and he noted improvement of his symptoms. However that did stop and he continues to have numbness tingling and pain in the 1st 3 fingers on his left hand. He notices decreased strength in the left hand. He is wonderingwhat the next step of treatment is. Patient is currently not using any anti-inflammatories or pain relievers for his discomfort. He does still wear his braces at night. 2. With crusting removal of skin tags on the left upper eyelid. He states it was very small but has quickly grown into a large size and he is requesting this to be removed. Denies any pain but it does interfere with his vision. 3. Complaining of a sore on his right lower leg that has been present for approximately 2 weeks. He has gradually noticed increasing redness, itching and most recently pain. He has been using antibiotic ointment on the open area and does complain of a yellow drainage. He has had no fever, chills or sweats. Denies pain in his calf. He denies any known injury to the lower leg. The following portions of the patient's history were reviewed and updated as appropriate: allergies,current medications, family history, medical history, social history, surgical history and problem list. REVIEW OF SYSTEMS A comprehensive review of systems was completed and all systems are negative except as listed under the HPI. OBJECTIVE BP 160/62 Pulse 80 Temp 36.8 ??C Wt (!) 150.4 kg SpO2 93% BMI 48.56 kg/m?? PHYSICAL EXAM General: Patient is alert, oriented x 3 and in no acute distress. HEENT: Conjunctiva, TMs, nasal mucosa are clear. A large flesh-colored pedunculated skin lesion is noted on the left inner upper eyelid. It does partially obstruct his field of vision. There is no surrounding redness or drainage. The area is nontender to palpation. Pharynx is clear without tonsillar adenopathy or exudate. Neck is nontender without cervical adenopathy. CHEST: Respirations are equal and nonlabored. Lungs are clear to auscultation without wheeze, rhonchi or rale. CARDIOVASCULAR: Heart rate and rhythm are regular without murmur. Musculoskeletal: Decreased strength is noted in the left hand. Positive Tinel sign on the left. Appropriate sensation is noted in both hands. He has no point tenderness however his symptoms are elicited with pressure over the left wrist. No tenderness at the elbow. Lower extremities were examined and he has 2+ nonpitting edema in the right lower leg. There is a large area of erythema and heat to touch in the anterior aspect of his right lower leg and a 2 in diameter wound is present that looks similar to a skin tear. There is a serous drainage noted. The remainder of the skin on the right lower legis dry and flaking. He has negative Homans sign. Pedal and popliteal pulses strong and palpable bilat erally. ASSESSMENT / PLAN 1. Carpal Tunnel Syndrome Bilateral Discuss further treatment options and patient would like to meet with an orthopedic surgeon for further evaluation. EMG was ordered and consult to the [facility] was made per patient request. He will continue to wear his braces. Anti-inflammatories and steroid therapy was also reviewed with patient but he declined wanting to use these at this time. - External referral physician (non-[place]) - EMG; Future 2. Cellulitis Doxycycline 100 mg, 1 capsule twice a day for 10 days was sent to his pharmacy. Silvadene cream, 1 application twice a day was sent to his pharmacy. Care of the lesion was discussed. He was advised to elevate his leg at rest and to watch for any increasing area of redness, increasing pain or swelling.He should return by the end of the week if he notices any of these symptoms developing. Follow-up in 1 week. 3. Acrochordon left upper eyelid Treatment options were reviewed with patient. I did set up an appointment at his request with Dr. Carcamo to return for removal of this skin tag. He is in agreement with this treatment plan and will follow up as directed. documented in this encounter Plan of Treatment Upcoming Encounters Date Type Specialty Care Team Description 02/11/2022 Appointment Laboratory Medicine Neli Hearn M.D. [address] [place] [phone] (Wo rk) 02/14/2022 Office Visit Family Medicine Lilli Hearn M.D. [address] [place] [phone] (Wo rk) Scheduled Referrals Name Type Priority Associated Diagnoses Order [facility] Outpatient Referral Routine Expec deidre: office visit 11/21/2017 (clinic) - Other (Approximat e), provider Expires: 11/21/2020 documented as of this encounter Results EMG (12/27/2017 11:14 AM CDT) Specimen (Source) Anatomical Location Collection Method / Collectio n Time Received Time / Laterality Volume Impressions EMG - 12/27/2017 11:14 AM CDT Done Externally - Refer to [facility] Administrative Closure Yoladna Colón APRN, C.N.P. NEUROLOGY ORDERABLES Performing Organization Address City/State/ZIP Code Phon e Number [facility] documented in this encounter Visit Diagnoses Diagnosis Carpal Tunnel Syndrome Bilateral - Prima ry Cellulitis Carpal Tunnel Syndrome Bilateral documented in this encounter Care Teams Sales Planner Relationship Specialty Start Date End Date Yolanda Colón APRN, C.N.P. PCP - General 09/08/16 documented as of this encounter
--- OUTSIDE RECORDS SUMMARY | 2021-12-28 10:00 | XMS_ITS | Encounter Summary ---
:1945 Author Organization [facility] Address [address] [place] [address] Care Team Providers Name Role Phone Yolanda Colón APRN, C.N.P. Primary Care Provider [phone] Encounter Details Date Type Department Care Team Description 12/27/2017 Diagnostic Department of Neurology Yolanda Colón Carpal Tunnel Syndrome in [facility] AMBER Hart, C.N.P. 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 [address] [place] [phone] (Wo rk) 02/14/2022 Office Visit Family Medicine Lilli Hearn M.D. [address] [place] [facility] [phone] (Wo rk) documented as of this encounter Procedures Procedure Name Priority Date/Time Associated Diagnosis Comme nts EMG Routine 12/27/2017 11:14 AM Carpal Tunnel Results for this CDT Syndrome Bilateral procedure are in the results section . documented in this encounter Results EMG (12/27/2017 11:14 AM CDT) Specimen (Source) Anatomical Location Collection Method / Collectio n Time Received Time / Laterality Volume Impressions EMG - 12/27/2017 11:14 AM CDT Done Externally - Refer to [facility] Administrative Closure Yolanda Colón APRN, C.N.P. NEUROLOGY ORDERABLES Performing Organization Address City/State/ZIP Code Phon e Number [facility] documented in this encounter Visit Diagnoses Diagnosis Carpal Tunnel Syndrome Bilateral documented in this encounter Care Teams Professor Of Journalism Relationship Specialty Start Date End Date Yolanda Colón APRN, C.N.P. PCP - General 09/08/16 documented as of this encounter
--- OUTSIDE RECORDS SUMMARY | 2021-12-28 10:00 | XMS_ITS | Encounter Summary ---
:1945 Author Organization [facility] Address [address] [place] [address] Care Team Providers Name Role Phone Yolanda Colón APRN, C.N.P. Primary Care Provider Reason for Visit Reason Comments Med Refill Encounter Details Date Type Department Care Team Description 02/26/2018 Refill Department of Family Medicine Yolanda Colón APRN, Med Refill in [facility] thony C.N.P. [address] [place], [place] [phone] [place] [phone] (Wo rk) Social History Tobacco Use Types [...] or relatives? How often do you attend gnosticist or 1 to 4 times per year 11/2019 taoism services? 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 - 02/27/2018 8:20 AM CST Patient last seen for preop carpal tunnel but hypertension has not been addressed since 02/16/16. Due to be seen. CLEANING AND STORAGE SUPERVISOR documented in this encounter Plan of Treatment Upcoming Encounters Date Type Specialty Care Team Description 02/11/2022 Appointment Laboratory Medicine Neli Hearn M.D. [address] [place] [phone] (Wo rk) 02/14/2022 Office Visit Family Medicine Lilli Hearn M.D. [address] [place] [phone] (Wo rk) documented as of this encounter Visit Diagnoses Not on filedocumented in this encounter Additional Health Concerns Assessment Noted Time PHQ-9 Depression Total Score: 10 01/09/2018 10:48 AM C DT documented as of this encounter Care Teams Furnace Operator Relationship Specialty Start Date End Date Yolanda Colón APRN, C.N.P. PCP - General 09/08/16 documented as of this encounter
--- OUTSIDE RECORDS SUMMARY | 2021-12-28 10:01 | XMS_ITS | Encounter Summary ---
:1945 Author Organization [facility] Address [address] [place] [address] Care Team Providers Name Role Phone Yolanda Colón APRN, C.N.P. Primary Care Provider [phone] Reason for Visit Reason Comments Communication Encounter Details Date Type Department Care Team Description 03/24/2017 Clinical Communication Department of Yolanda Craven Communication Medicine in AMBER Hart, C.N.PTerri Villalobos a [address] [place] [phone] Social History Tobacco Use Types Packs/Day Years [...] or relatives? How often do you attend bahai or 1 to 4 times per year 11/2019 hinduism services? 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 - 03/24/2017 8:43 AM CREDIT FRONT OFFICE DEVELOPER Pt notified labs WNL. No further questions at this time. IT FRONT OFFICE DEVELOPER Telephone Encounter - Gosia Mayer - 03/24/2017 8:25 AM CST PLEASE DO NOT REPLY TO SENDER, EMAILS ARE NOT MONITORED. THANK YOU. The patient had lab March 14 and he has not been told what the results are. Please give him a call. IT FRONT OFFICE DEVELOPER documented in this encounter Plan of Treatment Upcoming Encounters Date Type Specialty Care Team Description 02/11/2022 Appointment Laboratory Medicine Neli Hearn M.D. [address] [place] [phone] (Wo rk) 02/14/2022 Office Visit Family Medicine Lilli Hearn M.D. [address] [place] [phone] (Wo rk) documented as of this encounter Visit Diagnoses Not on filedocumented in this encounter Care Teams Order Dispatcher Chief Relationship Specialty Start Date End Date Yolanda Colón APRN, C.N.P. PCP - General 09/08/16 documented as of this encounter
--- OUTSIDE RECORDS SUMMARY | 2021-12-28 10:01 | XMS_ITS | Encounter Summary ---
:1945 Author Organization [facility] Address [address] [place] [address] Care Team Providers Name Role Phone Unavailable Primary Care Provider Unavailable Encounter Details Date Type Department Care Team Description 04/11/2016 Hospital Encounter HX [facility] Yolanda Colón, DROP CREW LABORER, C.N.P. 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 aspirin 81 mg capsule Take 1 tablet by 0 07/16/19 11 01/09/2018 mouth daily. B.ANI/L.ACI/L.DEYVI/L.PLAN Take 1 capsule by 0 01/2604/11/2018 /L.COURTNEY (PROBIOTIC mouth daily. FORMULA ORAL) buPROPion Take 1 tablet by 0 02/16/2016 03/10/20 17 (for_WELLBUTRIN SR) 150 mouth 2 (two) times a mg 12 hr tablet day. fluticasone Administer 1 spray 0 03/23/201606/07 (for_FLONASE) 50 into affected mcg/actuation nasal nostril(s) daily. spray losartan-hydroCHLOROthia Take 1 tablet by 0 02/1503/21/2017 zide (for_HYZAAR) 100-25 mouth daily. mg per tablet omeprazole Take 1 capsule by 0 02/16/2016 017 (for_PriLOSEC) 20 mg mouth daily. capsule pravastatin Take 1 tablet by 0 02/16/2016 018 (for_PRAVACHOL) 80 mg mouth at bedtime. tablet terazosin (for_HYTRIN) 1 Take 1 capsule by 0 01/2603/10/2017 mg capsule mouth at bedtime. documented as of this encounter Procedure Notes Ifeanyi Avila R.T.(R)(CT), Kirstie(R) - 04/11/2016 9:10 AM CST Peripheral IV Peripheral IV Entered On: 04/11/2016 9:14 RAG WASHER Performed On: 04/11/2016 9:10 RAG WASHER by IFEANYI AVILA RT(R) Peripheral IV Peripheral IV Assess/Intervention Grid Peripheral IV #1 IV Activity : Discontinue (Comment: BY HOLLIS KURTZ [IFEANYI AVILA RT(R) - 04/11/2016 9:13 RAG WASHER] ) Removal : Catheter intact, Hemostasis within expected timeframe Number of Attempts : 1 Date of Insertion : 04/11/2016 RAG WASHER Discontinued Date : 04/11/2016 RAG WASHER IV Site : Hand Laterality : Right Catheter Size : 20 Catheter Type : Over the needle Site Condition : No complications IFEANYI AVILA RT(R) - 04/11/2016 9:13 RAG WASHER Source: [employer] Document Id: [id number] RAG WASHER!14 WASHER Ifeanyi Avila R.T.(Sadie)(CT), Kirstie(R) - 04/11/2016 9:05 AM CST Peripheral IV Peripheral IV Entered On: 04/11/2016 9:13 RAG WASHER Performed On: 04/11/2016 9:05 RAG WASHER by IFEANYI AVILA(R) Peripheral IV Peripheral IV Assess/Intervention Grid Peripheral IV #1 IV Activity : Start (Comment: BY HOLLIS KURTZ [IFEANYI AVILA RT(R) - 04/11/2016 9:12 RAG WASHER] ) Number of Attempts : 1 Date of Insertion : 04/11/2016 RAG WASHER IV Site : Hand Laterality : Right Catheter Size : 20 Catheter Type : Over the needle IFEANYI AVILA(R) - 04/11/2016 9:12 RAG WASHER Source: [employer] Document Id: [id number] RAG WASHER!11 WASHER documented in this encounter Miscellaneous Notes Miscellaneous - Conversion, Historical Provider Ser - 04/12/2016 12:41 PM RAG WASHER Coding Summary-Paper Based CODING DATE: 04/12/2016 FINAL [facility] STATUS: * Discharged to Home or Self Care PAYOR: Medicare ADMIT DX: REASON FOR VISIT DX: FINAL DX: PRINCIPAL: R22.1 Localized swelling, mass and lump, neck SECONDARY: PROCEDURES DOCTOR NAME DATE NOTE: The code number assigned matches the documented diagnosis and / or procedure in the patient's chart. However, the narrative phrase printed from the coding software may appear abbreviated, or result in slightly different terminology. Coded By: ANTONETTE MOON Date Saved: 04/12/2016 12:41 pm Source: [employer] Document Id: [id number] Miscellaneous - Yolanda Colón, AMBER, C.N.P. - 04/12/2016 8:23 AM RAG WASHER Results Notification Document Contains Addenda Addendum by TIFFANY ELLIS LPN on April 12, 2016 09:28:56 RAG WASHER Pt. notified. From: [facility] [employer] To: TIFFANY ELLIS LPN; Sent: 04/12/2016 08:23:07 RAG WASHER Show up: 04/12/2016 08:23:00 RAG WASHER Subject: Results Notification Please notify that the CT shows a Lipoma or Fatty Tumor. Given that it continues to enlarge, if he would like to meet with General surgery for removal, will be happy to set that up for him. Results: Date Result Type Result Name 04/11/2016 10:[address] Neck w/ contrast Source: [employer] Document Id: [id number] Electronically signed by Conversion, [facility] Field Marketing Associate [id number] at 09/06/2016 3:17 AM CDT documented in this encounter Plan of Treatment Upcoming Encounters Date Type Specialty Care Team Description 02/11/2022 Appointment Laboratory Medicine Neli Hearn M.D. [address] [place] [phone] (Wo rk) 02/14/2022 Office Visit Family Medicine Lilli Hearn M.D. [address] [place] [address] (Wo rk) documented as of this encounter Procedures Procedure Name Priority Date/Time Associated Diagnosis Comme nts CT NECK WITH IV Routine 04/11/2016 9:10 AM Result s for this CONTRAST RAG WASHER procedure are i n the results section. documented in this encounter Results CT Neck with IV Contrast (04/11/2016 9:10 AM RAG WASHER) Anatomical Region Laterality Modality Neck Computed Tomography Specimen (Source) Anatomical Collection Method Collection Time Re ceived Time Location / / Volume Laterality 04/11/2016 9:10 AM RAG WASHER Addenda Addendum by Provider, Rachel Gusman 04/11/2016 9:10 AM RAG WASHER RAD^^^MA CT Neck w/ contrast 04/11/2016 09:10:26 Impressions 04/11/2016 10:31 AM RAG WASHER A 9.4 x 3.8 x 6.0 cm (ML, AP, CC) fatty mass in the posterior midline subcutaneous soft tiss ues at the neck base, with a few thin septations, is most compatible with a lipoma. Suggest clinical follow-up. If the mass is enlar ging, further evaluation with MRI could be considered. Narrative 04/11/2016 10:31 AM RAG WASHER EXAM: CT neck with contrast INDICATION: soft tissue mass posterior n anila COMPARISON: None available TECHNIQUE: Contrast enhanced helical CT imaging of the neck was performed following intravenous administ ration of 75 mL of Omnipaque 350. FINDINGS: There is a 9.4 x 3.8 x 6.0 cm (mediolateral, anteroposterior, craniocaudal) fatty mas s in the posterior midline subcutaneous soft tissues at the neck ba se. There are a few thin septations within this lesion, without n odular soft tissue lesion. The pharyngeal mucosal shows no suspicio us focal enhancing lesion. The epiglottis and larynx are unremarkab le. The thyroid shows no focal lesion. No cervical lymphadenopathy. The parotid, submandibular and sublingua l glands appear unremarkable. The imaged orbits are unremarkable. There are vascular calcifications in the aorta and carotid arteries. The imaged upper lungs are clear. There is multilevel degenerative disc disease in the cervical spine, most severe at C3-4 C5-6 and C6-7. Moderate left C4-5 facet arthropat hy. Procedure Note Peewee Jaime M.D. / Provider, Shahida burns M.D. - 09/12/2016 EXAM: CT neck with contrast INDICATION: soft tissue mass posterior n anila COMPARISON: None available TECHNIQUE: Contrast enhanced helical CT imaging of the neck was performed following intravenous administ ration of 75 mL of Omnipaque 350. FINDINGS: There is a 9.4 x 3.8 x 6.0 cm (mediolateral, anteroposterior, craniocaudal) fatty mas s in the posterior midline subcutaneous soft tissues at the neck ba se. There are a few thin septations within this lesion, without n odular soft tissue lesion. The pharyngeal mucosal shows no suspicio us focal enhancing lesion. The epiglottis and larynx are unremarkab le. The thyroid shows no focal lesion. No cervical lymphadenopathy. The parotid, submandibular and sublingua l glands appear unremarkable. The imaged orbits are unremarkable. There are vascular calcifications in the aorta and carotid arteries. The imaged upper lungs are clear. There is multilevel degenerative disc disease in the cervical spine, most severe at C3-4 C5-6 and C6-7. Moderate left C4-5 facet arthropat hy. IMPRESSION: A 9.4 x 3.8 x 6.0 cm (ML, AP , CC) fatty mass in the posterior midline subcutaneous soft tiss ues at the neck base, with a few thin septations, is most compatible with a lipoma. Suggest clinical follow-up. If the mass is enlar ging, further evaluation with MRI could be considered. Hollis Kurtz RJuan(Sadie)(CT), R.TFamilia(R) IMG CT PROCEDURES documented in this encounter Visit Diagnoses Not on filedocumented in this encounter
--- OUTSIDE RECORDS SUMMARY | 2021-12-28 10:01 | XMS_ITS | Encounter Summary ---
:1945 Author Organization [facility] Address [address] [place] [address] Care Team Providers Name Role Phone Yolanda Colón APRN, C.N.P. Primary Care Provider [phone] Reason for Visit Reason Comments Pre-op Exam cyst removal back neck on 04/27/[address] Hedrick at the [facility]. Appointment Request (Routine) - Incomplete Specialty Diagnoses / Procedures Referred By Contact Refer red To Contact Referral ID Status Reason Start Date Expiration Date Visits V isits Requested Authorized [id number] Incomplete 02/20/2017 08/19/2017 1 1 Encounter Details Date Type Department Care Team Description 03/14/2017 Office Visit Department of Yolanda Craven Pre operative Exam (Primary Dx); Medicine in AM[place] Hart, C.N.P. Mass Back Soft Tissue Terri Michael [address] [place] [phone] Social History Tobacco Use Types Packs/Day Years [...] or relatives? How often do you attend buddhist or 1 to 4 times per year 11/2019 oriental orthodox services? 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 documented as of this encounter Last Filed Vital Signs Vital Sign Reading Time Taken Comments Blood Pressure 138/76 03/14/2017 3:44 PM HOME SECURITY PROFESSIONAL Pulse 84 03/14/2017 3:44 PM HOME SECURITY PROFESSIONAL Temperature 36.7 ??C (98.1 ??F) 03/14/2017 3:44 PM HOME SECURITY PROFESSIONAL Respiratory Rate 16 03/14/2017 3:44 PM HOME SECURITY PROFESSIONAL Oxygen Saturation 95% 03/14/2017 3:44 PM HOME SECURITY PROFESSIONAL Inhaled Oxygen Concentration - - Weight 140 kg (308 lb) 03/14/2017 3:44 PM HOME SECURITY PROFESSIONAL Height 176 cm (5' 9.29) 03/14/2017 3:44 PM HOME SECURITY PROFESSIONAL Body Mass Index 45.1 03/14/2017 3:44 PM HOME SECURITY PROFESSIONAL documented in this encounter Progress Notes Yolanda Colón, AMBER, C.N.P. - 03/14/2017 4:00 PM CST SUBJECTIVE Pre-op Exam (cyst removal back neck on 04/27/[address] Hedrick at the [facility]. ) Procedure: Removal Soft tissue mass/cyst upper back Location: Dr. Ryley Dos Santos Date: 03/28/2016 History of Present Illness 71-year-old male is here today for a preop physical exam for removal of a soft tissue mass/cyst fromthe upper back. The mass has been present for several years but has continued to grow in size. It does not cause him any pain. Patient denies any other concerns today. Past Medical History: Diagnosis Date ??? Gastroesophageal Reflux Disease NOS 09/04/2006 ??? Hypercholesterolemia 06/07/2012 Hypertension Essential (401.9) ??? Hypothyroidism 09/03/2007 ??? Morbid Obesity Body Mass Index Greater Than Or Equal To 40 Adult ([facility]) 04/16/2015 ??? Obstructive Sleep Apnea Adult 07/21/2016 Past Surgical History: Procedure Laterality Date ??? BACK SURGERY ??? HERNIA REPAIR N/A Hernia repair No prior history of anesthetic reactions, bleeding disorders or blood transfusions. Social History Nonsmoker, no alcohol use, no regular exercise. 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 Family History Problem Relation Age of Onset ??? Coronary artery disease Father ??? Breast cancer Mother ??? Dementia Mother ??? Prostate cancer Brother No family history of anesthetic reactions. Current Outpatient Prescriptions on File Prior to Visit Medication Sig Dispense Refill ??? amLODIPine (for_NORVASC) 5 mg tablet Take 1 tablet by mouth daily. ??? aspirin 81 mg capsule Take 1 tablet by mouth daily. ??? B.ANI/L.ACI/L.DEYVI/L.PLAN/L.COURTNEY (PROBIOTIC FORMULA ORAL) Take 1 capsule by mouth daily. ??? buPROPion (for_WELLBUTRIN SR) 150 mg 12 hr tablet TAKE ONE (1) TABLET BY MOUTH TWICE DAILY 180 tablet 0 ??? fluticasone (for_FLONASE) 50 mcg/actuation nasal spray Administer 1 spray into affected nostril(s) daily. ??? GLUCOSAMINE/CHONDR NOONAN A SOD (OSTEO BI-FLEX ORAL) Take 1 tablet by mouth 2 (two) times a day. ??? losartan-hydroCHLOROthiazide (for_HYZAAR) 100-25 mg per tablet Take 1 tablet by mouth daily. ??? methylPREDNISolone (for_MEDROL DOSEPACK) 4 mg tablet Take 4 mg by mouth 2 (two) times a day. follow package directions ??? MULTIVITAMIN WITH MINERALS ORAL Take 1 tablet by mouth daily. ??? nabumetone (for_RELAFEN) 500 mg tablet Take 1 tablet by mouth 2 (two) times a day as needed. ??? omega-3 fatty acids (FISH OIL) 500 mg capsule Take 2 tablets by mouth daily. ??? omeprazole (for_PriLOSEC) 20 mg capsule Take 1 capsule by mouth daily. ??? pravastatin (for_PRAVACHOL) 80 mg tablet Take 1 tablet by mouth at bedtime. ??? terazosin (for_HYTRIN) 1 mg capsule TAKE ONE (1) CAPSULE BY MOUTH AT BEDTIME 90 capsule 0 ??? [DISCONTINUED] furosemide (for_LASIX) 20 mg tablet Take 20 mg by mouth daily. Allergies Allergen Reactions ??? Acetaminophen Other (see comments) ??? Sulfa (Sulfonamide Antibiotics) Anxiety REVIEW OF SYSTEMS General: Denies fevers, chills [...] of depression, uncontrolled anxiety, or suicidal ideations. OBJECTIVE BP 138/76 Pulse 84 Temp 36.7 ??C Resp 16 Ht 176 cm Wt (!) 139.7 kg SpO2 95% BMI 45.10 kg/m?? Physical Exam GENERAL: Patient is alert, oriented, in NAD. Affect is appropriate. HEENT: PERRLA. Extraocular movements intact. No conjunctival irritation or scleral icterus. Pharynx clear without erythema. Ear canals are patent. Tympanic membranes are pearly ovalle with normal landmarks bilaterally. Neck is supple and without mass or cervical lymphadenopathy. No thyromegaly or nodularity. Gastrointestinal: Abdomen is soft, nontender, and nondistended. Bowel sounds are active. No organomegaly or mass is noted. No rebound or guarding. Respiratory: Breathing is nonlabored. Lungs are clear to auscultation bilaterally. No crackles or wheezes are auscultated. Cardiovascular: Heart rate and rhythm No murmurs, gallops or rubs. Musculoskeletal: Spine in appropriate alignment. Normal range of motion without limitations noted. Extremities are warm and well perfused. No joint swelling or erythema is noted. Neuro: Cranial nerves II through XII are grossly intact. Strength and sensation are normal in all four extremities. DTRs intact and equal bilaterally in biceps, patellar and Achilles tendons. Skin: Normal color and turgor without notable lesion or rash. Diagnostics CT of chest 01/2017- Normal Echo 01/2017- EF 65% Results for orders placed or performed in visit on 03/14/17 CMP (Comprehensive Metabolic Panel) Result Value Ref Range Potassium, S 3.8 3.6 - 5.2 mmol/L Sodium, S 140 135 - 145 mmol/L Chloride, S 99 98 - 107 mmol/L Bicarbonate, S 28 22 - 29 mmol/L Anion Gap 13 7 - 15 Bld Urea Nitrog(BUN), S 13 8 - 24 mg/dL Creatinine, S 1.00 0.74 - 1.35 mg/dL eGFR Non- 76 >=60 mL/min/BSA eGFR- 88 >=60 mL/min/BSA Calcium, Total, S 10.0 8.9 - 10.1 mg/dL Glucose, Random, S 110 70 - 140 mg/dL Protein, Total, S 6.8 6.3 - 7.9 g/dL Albumin, S 4.4 3.5 - 5.0 g/dL Aspartate Aminotransferase (AST), S 28 8 - 48 U/L Alkaline Phosphatase, S 54 45 - 115 U/L Alanine Aminotransferase (ALT), S 32 7 - 55 U/L Bilirubin Total, S 0.6 <=1.2 mg/dL 1. Preoperative Exam - CMP (Comprehensive Metabolic Panel) - patient was advised to hold his Relafen and 81 mg aspirin 7 days prior to surgery. He will hold his fish oil and losartan on the morning of surgery and resume after surgery complete. - patient cleared for low risk surgery without any contraindications for sedation/anesthesia. 2. Mass Back Soft Tissue SECURITY PROFESSIONAL documented in this encounter Plan of Treatment Upcoming Encounters Date Type Specialty Care Team Description 02/11/2022 Appointment Laboratory Medicine Neli Hearn M.D. [address] [place] [phone] (Wo rk) 02/14/2022 Office Visit Family Medicine Lilli Hearn M.D. [address] [place] [phone] (Wo rk) documented as of this encounter Procedures Procedure Name Priority Date/Time Associated Diagnosis Comme nts COMPREHENSIVE Routine 03/14/2017 4:19 Preoperative Exam Result s for this METABOLIC PANEL, S/P PM HOME SECURITY PROFESSIONAL procedu re are in the results section. documented in this encounter Results CMP (Comprehensive Metabolic Panel) (03/14/2017 4:19 PM HOME SECURITY PROFESSIONAL) P athologist Signature Potassium, S 3.8 3.6 - 5.2 03/15/2017 [facility] mmol/L 11:39 AM [facility] [employer] [facility] Sodium, S 140 135 - 145 03/15/2017 [facility] mmol/L 11:39 AM [facility] [employer] [facility] Chloride, S 99 98 - 107 03/15/2017 [facility] mmol/L 11:39 AM [facility] [employer] [facility] Bicarbonate, S 28 22 - 29 03/15/2017 [facility] mmol/L 11:39 AM [facility] [employer] [facility] Anion Gap 13 7 - 15 03/15/2017 [facility] 11:39 AM [facility] [employer] [facility] BUN (Blood Urea 13 8 - 24 03/15/2017 [facility] Nitrogen), S mg/dL 11:39 AM [facility] [employer] [facility] Creatinine 1.00 0.74 - 03/15/2017 [facility] 1.35 mg/dL 11:39 AM [facility] [employer] [facility] eGFR 76 >=60 03/15/2017 [facility] Non-Black/Afric mL/min/BSA 11:39 AM [facility] [employer] SYS [facility]- an [facility] [employer] [facility] Comment: ----ADDITIONAL INFORMATION---- Estimated GFR calculated using the 2009 CKD_EPI creatinine equation. eGFR Black/ 88 >=60 mL/min/BSA 03/15/2017 11:3 9 AM [facility] [employer] [facility] Comment: ----ADDITIONAL INFORMATION---- Estimated GFR calculated using the 2009 CKD_EPI creatinine equation. Calcium, Total, S 10.0 8.9 - 10.1 03/15/2017 11:39 AM [facility] mg/dL [facility] [employer] [facility] Glucose, S 110 70 - 140 mg/dL 03/15/2017 11:39 AM [facility] Protein, Total, S 6.8 6.3 - 7.9 g/dL 03/15/2017 11:39 AM [facility] Albumin, S 4.4 3.5 - 5.0 g/dL 03/15/2017 11:39 AM [facility] Aspartate Aminotransferase 28 8 - 48 U/L 03/15/2017 1 1:39 AM [facility] Alkaline Phosphatase, S 54 45 - 115 U/L 03/15/2017 11 :39 AM [facility] Alanine Aminotransferase 32 7 - 55 U/L 03/15/2017 11: 39 AM [facility] Bilirubin, Total, S 0.6 <=1.2 mg/dL 03/15/2017 11:39 A M [facility] Specimen Anatomical Collection Method Collection Time Receive d Time (Source) Location / / Volume Laterality Blood (Blood, 03/14/2017 4:19 PM 03/15/20 17 Venous) HOME SECURITY PROFESSIONAL 11:09 AM HOME SECURITY PROFESSIONAL Yolanda Colón APRN, C.N.P. LAB BLOOD ADD-ON Performing Organization Address City/State/ZIP Code Phon e Number [facility] [address] [place] [id number] [facility] documented in this encounter Visit Diagnoses Diagnosis Preoperative Exam - Primary Mass Back Soft Tissue documented in this encounter Care Teams Train Examiner Relationship Specialty Start Date End Date Yolanda Colón APRN, C.N.P. PCP - General 09/08/16 documented as of this encounter
--- OUTSIDE RECORDS SUMMARY | 2021-12-28 10:01 | XMS_ITS | Encounter Summary ---
:[address] [facility] Address [address] [place] [address] Care Team Providers Name Role Phone Yolanda Colón APRN, C.N.P. Primary Care Provider [phone] Reason for Visit Reason Comments Med Refill Encounter Details Date Type Department Care Team Description 03/21/2017 Refill Department of Family Medicine Yolanda Colón APRN, Med Refill in [facility] thony C.N.P. [address] [place], [place] [phone] [place] [phone] (Wo rk) Social History Tobacco Use Types [...] 1 to 4 times per year 11/2019 mandaen services? 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 [address] [place] [phone] (Wo rk) 02/14/2022 Office Visit Family Medicine Lilli Hearn M.D. [address] [place] [phone] (Wo rk) documented as of this encounter Visit Diagnoses Not on filedocumented in this encounter Care Teams Rn Occupational Health Relationship Specialty Start Date End Date Yolanda Colón APRN, C.N.P. PCP - General 09/08/16 documented as of this encounter
--- OUTSIDE RECORDS SUMMARY | 2021-12-28 10:01 | XMS_ITS | Encounter Summary ---
:1945 Author Organization [facility] Address [address] [place] [address] Care Team Providers Name Role Phone Yolanda Colón APRN, C.N.P. Primary Care Provider [phone] Reason for Visit Reason Comments Other F/U hosp in [place]/ [facility] harged 02/10. See echo results Encounter Details Date Type Department Care Team Description 02/14/2017 Office Visit Department of Family Yolanda Colón Ret ention Fluid (Primary Dx); Medicine in [place], C.N.P. Elevated Glucose; Terri Michael a [address] Morbid Obesity Body Mass Index Greater T lazaro Or Equal To 40 Adult ([facility]) [address] [place] [phone] Social History Tobacco Use Types Packs/Day Years [...] 1 to 4 times per year 11/2019 [employer]? 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 documented as of this encounter Last Filed Vital Signs Vital Sign Reading Time Taken Comments Blood Pressure 132/74 02/14/2017 2:07 PM ENTRY LEVEL FINANCIAL ANALYST Pulse 84 02/14/2017 2:07 PM ENTRY LEVEL FINANCIAL ANALYST Temperature 37.5 ??C (99.5 ??F) 02/14/2017 2:07 PM ENTRY LEVEL FINANCIAL ANALYST Respiratory Rate - - Oxygen Saturation 94% 02/14/2017 2:07 PM ENTRY LEVEL FINANCIAL ANALYST Inhaled Oxygen Concentration - - Weight 146 kg (320 lb 15.8 oz) 02/14/2017 2:07 PM ENTRY LEVEL FINANCIAL ANALYST Height 176 cm (5' 9.29) 02/14/2017 2:07 PM ENTRY LEVEL FINANCIAL ANALYST Body Mass Index 47 02/14/2017 2:07 PM ENTRY LEVEL FINANCIAL ANALYST documented in this encounter Progress Notes Yolanda Colón, AM[place], C.N.P. - 02/14/2017 2:15 PM CST SUBJECTIVE CHIEF COMPLAINT / REASON FOR VISIT Cristi Macdonald is a 71 y.o. male who presents for evaluation of Other (F/U hosp in [place]/ discharged 02/10. See echo results). 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 He complained of numbness in his left arm at the sametime. During that same day, he walked a flight of stairs and felt extremely short of breath which hestates is unusual for him. He proceeded to drive home from my walk to [place] and then his brought him to the emergency room in [place]. He underwent a echocardiogram with ejection fraction 65-70% showing normal left ventricular size and moderately enlarged left atrium. EKG was normal sinus rhythm, he had normal troponin levels and proBNP. Chest x-ray was also normal and a cervical spine MRI showed a C3-C4 spurring with right C4 nerve impingement. The remainder of his blood work was normal. Patient was scheduled for a repeat echocardiogram as an outpatient for follow-up as well as a neurosurgery consultation to remove the lipoma on his upper back which they believe could be causing some of his numbness in the left her. He was started on Lasix therapy and diuresed losing 10 lb of fluid before discharge from the hospital. He is here today for follow-up and to get a basic metabolic panel to check his electrolytes. The patient states he is no longer having any chest pain or shortness of breath. He notes a total of 15-20 lb weight loss since his hospitalization due to the Lasix. He denies any dizziness, syncopal episodes, headaches. Denies any other new concerns today. The following portions of the patient's history were reviewed and updated as appropriate: allergies,current medications, family history, medical history, social history, surgical history and problem list. Constitutional: Positive for weight loss of more than 10 pounds. Negative for fatigue, fever and generalized weakness. Skin: Negative for skin rash. Eyes: Negative for visual problems. Respiratory: Negative for coughing up mucus (phlegm), dry cough, shortness of breath and wheezing. Cardiovascular: Negative for chest pain, pressure or tightness, swelling in the legs or feet, rapid or fluttering heart beat and shortness of breath when lying flat. Gastrointestinal: Negative for abdominal (belly) pain or cramping, nausea and vomiting. Genitourinary: Positive for frequency. Negative for difficulty urinating. Neurological: Negative fornumbness or shooting pain in hands, arms, legs, or feet, loss of balance or tendency to fall easily,headaches and weakness in arms or legs. OBJECTIVE BP 132/74 Pulse 84 Temp 37.5 ??C Ht 176 cm Wt (!) 145.6 kg SpO2 94% BMI 47.00 kg/m?? PHYSICAL EXAM GENERAL: Patient is alert, oriented, in NAD. [...] and rhythm No murmurs, gallops or rubs. Femur early pedal pulses are strong and palpable. No pedal edema. Musculoskeletal: Spine in appropriate alignment. Normal range of motion without limitations noted. Extremities are warm and well perfused. No joint swelling or erythema is noted. A large soft tissue mass is noted on the cervical spine nontender to palpation. It have well-defined borders without erythema or inflammation Neuro: DTRs intact and equal bilaterally in biceps, patellar and Achilles tendons. Skin: Normal color and turgor without notable lesion or rash. ASSESSMENT / PLAN 1. Retention Fluid - patient will continue on Lasix 20 mg daily for the remainder of this prescription. I did recommenda repeat basic metabolic panel in 1 month. I will call him with his results from today. - BMP (Basic Metabolic Panel) 2. Elevated Glucose - hemoglobin A1c was completed today for a history of elevated blood glucose from this past spring as well as his past hospitalization. 3. Morbid Obesity Body Mass Index Greater Than Or Equal To 40 Adult (HCC) - reinforce the importance of continued weight loss, regular exercise, and healthy nutritional diet.Patient has met with a dietitian in [place] and is going to continue to meet with her. He will follow up with me in 1 month. Y LEVEL FINANCIAL ANALYST documented in this encounter Plan of Treatment Upcoming Encounters Date Type Specialty Care Team Description 02/11/2022 Appointment Laboratory Medicine Neli Hearn M.D. [address] [place] [phone] (Stephon caldera) 02/14/2022 Office Visit Family Medicine Lilli Hearn M.D. [address] [place] [phone] (Stephon caldera) documented as of this encounter Procedures Procedure Name Priority Date/Time Associated Comments Diagnosis HEMOGLOBIN A1C, B Routine 02/14/2017 3:06 PM Retention Fluid R esults for this ENTRY LEVEL FINANCIAL ANALYST procedure are i n the results section. BASIC METABOLIC Routine 02/14/2017 3:03 PM Retention Fluid Res ults for this PANEL, S/P ENTRY LEVEL FINANCIAL ANALYST procedure are i n the results section. documented in this encounter Results (ABNORMAL) Hemoglobin A1c (02/14/2017 3:06 PM ENTRY LEVEL FINANCIAL ANALYST) athologist Signature Hemoglobin A1c, 6.5 (H) 4.2 - 5.6 02/14/2017 [facility] B % 6:38 PM [facility] Comment: Hemoglobin A1c values greater than or eq ual to 6.5 percent are diagnostic for diabetes mellitus. ?? Diagnosis should be confirmed by repeat testing. ??In diabet ic patients, HbA1c goals should be discussed with healthcar e provider. Specimen Anatomical Collection Method Collection Time Receive d Time (Source) Location / / Volume Laterality Blood (Blood, 02/14/2017 3:06 PM 02/15/20 17 5:46 Venous) ENTRY LEVEL FINANCIAL ANALYST PM ENTRY LEVEL FINANCIAL ANALYST Yolanda Colón APRN C.N.P. LAB BLOOD ADD-ON Performing Organization Address City/State/ZIP Code Phon e Number [facility] [address] [place] [address] [facility] BMP (Basic Metabolic Panel) (02/14/2017 3:03 PM ENTRY LEVEL FINANCIAL ANALYST) athologist Signature Potassium, S 3.7 3.6 - 5.2 02/14/2017 [facility] mmol/L 6:38 PM [facility] Sodium, S 139 135 - 145 02/14/2017 [facility] mmol/L 6:38 PM [facility] Chloride, S 98 98 - 107 02/14/2017 [facility] mmol/L 6:38 PM [facility] Bicarbonate, S 29 22 - 29 02/14/2017 [facility] mmol/L 6:38 PM [facility] Anion Gap 12 7 - 15 02/14/2017 [facility] 6:38 PM [facility] BUN (Blood Urea 23 8 - 24 02/14/2017 [facility] Nitrogen), S mg/dL 6:38 PM [facility] Creatinine 0.99 0.74 - 02/14/2017 [facility] 1.35 mg/dL 6:38 PM [facility] eGFR 77 >=60 02/14/2017 [facility] Non-Black/Afric mL/min/BSA 6:38 PM ENTRY LEVEL FINANCIAL ANALYST [facility] [place] [facility] Comment: ----ADDITIONAL INFORMATION---- Estimated GFR calculated using the 2009 CKD_EPI creatinine equation. eGFR-Black/ 89 >=60 mL/min/BSA 2016 6:38 PM [facility] Comment: ----ADDITIONAL INFORMATION---- Estimated GFR calculated using the 2009 CKD_EPI creatinine equation. Calcium, Total, S 10.0 8.9 - 10.1 mg/dL 02/14/2017 6 :38 PM ENTRY LEVEL FINANCIAL ANALYST [facility] Glucose, S 135 70 - 140 mg/dL 02/14/2017 6:38 PM ENTRY LEVEL FINANCIAL ANALYST [facility] Specimen Anatomical Collection Method Collection Time Receive d Time (Source) Location / / Volume Laterality Blood (Blood, 02/14/2017 3:03 PM 02/15/20 17 5:46 Venous) ENTRY LEVEL FINANCIAL ANALYST PM ENTRY LEVEL FINANCIAL ANALYST Yolanda Colón APRN, C.N.P. LAB BLOOD ADD-ON Performing Organization Address City/State/ZIP Code Phon e Number [facility] [address] [place] [address] [facility] documented in this encounter Visit Diagnoses Diagnosis Retention Fluid - Primary Elevated Glucose Morbid Obesity Body Mass Index Greater T lazaro Or Equal To 40 Adult (HCC) documented in this encounter Care Teams Chief Operator Relationship Specialty Start Date End Date Yolanda Colón APRN, C.N.P. PCP - General 09/08/16 documented as of this encounter
--- OUTSIDE RECORDS SUMMARY | 2021-12-28 10:01 | XMS_ITS | Encounter Summary ---
:1945 Author Organization [facility] Address [address] [place] [address] Care Team Providers Name Role Phone Yolanda Colón APRN, C.N.P. 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 [address] [place] [phone] (Wo rk) 02/14/2022 Office Visit Family Medicine Lilli Hearn M.D. [address] [place] [phone] (Wo rk) documented as of this encounter Visit Diagnoses Diagnosis Apnea Sleep Obstructive documented in this encounter Care Teams Waiter/Waitress Tavern Relationship Specialty Start Date End Date Yolanda Colón APRN, C.N.P. PCP - General 09/08/16 documented as of this encounter
--- OUTSIDE RECORDS SUMMARY | 2021-12-28 10:01 | XMS_ITS | Encounter Summary ---
:1945 Author Organization [facility] Address [address] [place] [address] Care Team Providers Name Role Phone Yolanda Colón APRN, C.N.P. Primary Care Provider Encounter Details Date Type Department Care Team Description 02/12/2017 Abstract Department of Infusion Therapy Provider, Historical in [place], Terri a [address] [place] [phone] Social History Tobacco Use Types Packs/Day [...] 12/04/2019 organizations such as buddhism groups, unions, fraternal or athletic groups, or [...] minutes do you engage in exercise at is 30 min 12/04/2019 level? 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 [facility] [place] [phone] (Wo rk) 02/14/2022 Office Visit Family Medicine Lilli Heran M.D. [address] [place] [phone] (Wo rk) documented as of this encounter Visit Diagnoses Not on filedocumented in this encounter Care Teams Gravure Printing Machinist Relationship Specialty Start Date End Date Yolanda Colón APRN, C.N.P. PCP - General 09/08/16 documented as of this encounter
--- OUTSIDE RECORDS SUMMARY | 2021-12-28 10:01 | XMS_ITS | Encounter Summary ---
:1945 Author Organization [facility] Address [address] [place] [address] Care Team Providers Name Role Phone Unavailable Primary Care Provider Unavailable Encounter Details Date Type Department Care Team Description 05/25/2016 Hospital Encounter HX [facility] JENNIFERWendy Riojas, TELEVISION SCRIPT WRITER, C.N.P. [address] [place] [phone] (Wo rk) Social History Tobacco Use Types [...] 1 to 4 times per year 11/2019 scientology services? 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 documented as of this encounter Progress Notes Yolanda Colón APRN, LindaNMagdalena. - 05/25/2016 7:43 AM CST FM-LE CHIEF COMPLAINT/REASON FOR VISIT 1. Medhat comes in today complaining of low back pain with radiation down into the left hip and leg. 2. Complaining of right eye irritation. HISTORY OF PRESENT ILLNESS 1. Medhat is a 70-year-old male who has a history of L4-5 and L5-1 herniations and degenerative disk disease. Approximately 13-14 years ago he did have a lower back surgery, where he states they cleanedout the area. He denied any effusion. Has had prior steroid injections to the L4-L5 area that did provide him with some relief historically, but this was many years ago. Last spring, he injured his lower back and he states he was out of work for 4-5 weeks with low back pain, and he is concerned that this is where he is headed now. He notes for the past 2-3 weeks, he has had some pain in the low back,but it does radiate into both of his hips, but worse on the left side and down into the left leg. [place] of a sharp, shooting, radiation pain into his groin and down into the leg. He denies any numbness or weakness in his lower extremities. The pain is not constant, but does get worse with walking.Denies pain at rest. He has had an x-ray of the lumbar spine and pelvis within the last 6-9 months, showing advanced degenerative disk disease and facet disease at L4-L5, L5-S1. Today the patient is requesting to have further imaging and MRI of the lower back. He rates his pain at a 7. Denies any recent fall or injury. He has not noticed any change in bowel or bladder function, and states his symptoms have been present for greater than 12 weeks. 2. Complaining of irritation in the right eye. He has a history of styes and problems with his eyelashes. He states he has had no redness, drainage, swelling, but complains of slight irritation in the eye; however, today it is improved. PAST MEDICAL/SURGICAL HISTORY Hyperlipidemia. Hypertension. Degenerative disk disease, lumbar vertebrae. BMI greater than 45. Anxiety. SURGICAL PROCEDURAL HISTORY: History of hernia repair. Lumbar vertebrae surgery. FAMILY HISTORY Brother prostate cancer. Father coronary artery disease. Mother dementia. 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 No regular exercise. Nonsmoker. No alcohol use. MEDICATIONS CURRENT MEDICATIONS: Amlodipine 5 mg. Aspirin 81 daily. Bupropion SR 150 twice a day. Centrum Silver. Flonase. Hytrin. Losartan. Naprosyn. [place] 500. Omeprazole. Osteo Bi-Flex. Pravastatin. Probiotics. Viagra. SYSTEMS REVIEW Review of systems as listed under the HPI. The remainder of the review of systems are negative. PHYSICAL EXAMINATION VITAL SIGNS: Temperature 37.1, heart rate 68, blood pressure 138/72, O2 sat 96%. Height 176, weight 149.1, BMI 48.13. Current pain level 2. ALIYAH-7 score of 0. GENERAL APPEARANCE: This is a 70-year-old male who is in no apparent distress. HEAD, EYES, EARS, NOSE, THROAT: Conjunctivae are clear. There is no redness, inflammation, no led edema. Eyelashes do appear normal today with no evidence of stye. Tympanic membranes: Nasal mucosa clear. MUSCULOSKELETAL/SPINE/NEUROLOGIC: Spine is in appropriate alignment with mild lordosis of the lumbarvertebrae. He has point tenderness along L4-L5. I am unable to elicit his radiating symptoms with pressure to this area. No adjacent muscular tenderness is noted today. He has some limitation of flexion, with lateral flexion to the right side to approximately 45 degrees. Otherwise, full range of motion is noted. His gait is steady and appropriate without limp. DTRs are intact bilaterally. His lower extremity strength is equal and appropriate bilaterally. No alteration in sensation is noted during his exam today. Negative straight leg raise. No pain along the hips. Hips with full range of motion. Non tender in the inguinal area bilaterally. IMPRESSION/REPORT/PLAN 1. Advanced degenerative disk disease, L4-L5, L5-S1, with radiating pain into the right groin. 2. Eye irritation, with a normal examination today. PLAN: 1. Treatment options were discussed with Medhat. I did recommend regular exercise, weight loss, some back strengthening and stretching activities, encouraged physical therapy. Patient did decline. MRI of the lumbar vertebrae was ordered. The open MRI at [facility], per patient request. Given the chronicity of his symptoms, would recommend further Physiatry consultation, depending on magnetic resonance imaging (MRI) results, and he is in agreement with this plan. Wsfa-nls-smdadht analgesics for discomfort. 2. Reassured Medhat that his eye does look normal today without any evidence of pink eye, foreign object, or a stye. Encouraged lid lash with Moe and Moe baby shampoo. He is to call for any worsening of symptoms. He voices understanding and is in agreement with this treatment plan. Yolanda Colón APRN, Nakul.N.P./pos Electronically Signed By: YOLANDA COLÓN CASHIER HOST/HOSTESS On: 05/31/2016 08:44 AM Source: [facility] FERNANDOSDOLBEYNONRADSYS Document Id: [id number] NISTRATIVE TECHNICIAN documented in this encounter Miscellaneous Notes Miscellaneous - Yolanda Colón APRN, C.N.P. - 05/31/2016 2:06 PM ADMINISTRATIVE TECHNICIAN From: YOLANDA COLÓN CASHIER HOST/HOSTESS Sent: 05/31/2016 14:06:46 ADMINISTRATIVE TECHNICIAN pt notified of MRI spine. Pt will continue to work on weight loss. He will notify me if he would like further referral for physiatry or PT. Advised exercise and dietary consult. Pt declined at this time. Source: [facility] POWERCHART Document Id: [id number] Electronically signed by [facility] Marketing Officer [id number] at 09/06/2016 5:38 AM CDT Miscellaneous - Yolanda Colón APRN, C.N.P. - 05/25/2016 4:37 PM ADMINISTRATIVE TECHNICIAN Ambulatory Patient Summary [address] [place], [place] [id number] Visit Information Name: FRANSICO MACDONALD [facility] Number: [id number] Current Date: 05/25/2016 16:37:43 Physicians Attending Provider: YOLANDA COLÓN NP Primary Care Provider: YOLANDA COLÓN CASHIER HOST/HOSTESS FRANSICO MACDONALD MICAELA has been given the following list of follow-up instructions, medication list, and patient education materials: Follow-up Instructions Your Medications Here is a list of your medications. It is important to take your medications as directed. Use a pillbox or chart to help remind you to take your medications. Please let your doctor or nurse know if you have problems taking your medications. Medication/Strength How to Take Indications/Special Instructions/Comments/Notes for Patient Medication Changes/Routing amLODIPine (amLODIPine 5 mg oral tablet) 1 Tablet(s), Oral, once a day aspirin (aspirin 81 mg oral tablet) 1 Tablet(s), Oral, once a day bifidobacterium-lactobacillus (Probiotic Formula) 1 cap, Oral, once a day buPROPion (buPROPion SR 150 mg/12 hour oral tablet, sustained release) 1 Tablet(s), Oral, two times a day fluticasone nasal (fluticasone 50 mcg/inh nasal spray) 1 [place](s), Nasal, once a day glucosamine-chondroitin (Osteo Bi-Flex) 1 tablets, Oral, two times a day losartan-hydroCHLOROthiazide (losartan-hydroCHLOROthiazide 100mg-25mg oral tablet) 1 Tablet(s), Oral, once a day (Hyzaar) multivitamin with minerals (Centrum Silver Men's oral tablet) 1 Tablet(s), Oral, once a day naproxen (Naprosyn 500 mg oral tablet) 1 Tablet(s), Oral, two times a day as needed for pain omega-3 polyunsaturated fatty acids ([place]-500 oral capsule) 2 Tablet(s), Oral, once a day omeprazole (omeprazole 20 mg oral delayed release capsule) 1 cap, Oral, once a day pravastatin (pravastatin 80 mg oral tablet) 1 Tablet(s), Oral, once a day (at bedtime) sildenafil (sildenafil 25 mg oral tablet) 1 tablet one hour prior to sexual activity, Oral, once a day as needed for Erectile dysfunction terazosin (Hytrin 1 mg oral capsule) 1 cap, Oral, once a day (at bedtime) Stop Taking the Following Medications: Medication list as of 05-25-16 16:37 Attention: If you have any medications at home that are not on this list, DO NOT take them until youcontact your provider for clarification. Give a copy of your medication list to your primary care provider. Update your medication list any time medications or doses are changed and carry your medication list at all times in case of emergency. Electronically Signed By: YOLANDA COLÓN CASHIER HOST/HOSTESS Signed On:25-MAY-2016 16:37:40 Your Allergies & Intolerances Substance Reaction Symptoms Category Comments sulfa drugs irritating; feels jumpy Drug Tylenol Drug Your Problem List Problem Status Onset Comments Hypertension Essential (401.9) Active Hypercholesterolemia Active Psoriasis NOS Active Morbid Obesity Body Mass Index (BMI) >40 Adult Active Your Upcoming Appointments Date Time Location Provider No Appointments found Attention: Contact your local Clinic if further appointment detail needed. Consider Using Patient Online Services Patient Online Services is a secure online and Mobile application that lets you: ?? View lab and test results ?? View portions of your medical record including clinical notes, immunizations and discharge summaries ?? Request an appointment or medication refill ?? Review your appointment schedule ?? Send secure messages to your care team Its easy to create an account if you dont have one. Go to [email or web address] and click on Create Your Account. Then, follow the directions to complete the online form. Youll be asked for your [facility] number which you can find at the top of this document. Your Goals/Additional instructions: Source: [facility] POWERCHART Document Id: [id number] NISTRATIVE TECHNICIAN Miscellaneous - Yolanda Colón APRN, C.N.P. - 05/25/2016 4:37 PM ADMINISTRATIVE TECHNICIAN Ambulatory Discharge Medication List [address] [place], [place] [id number] Visit Information Name: LIZETLOFRANSICO LULUNEREIDA [facility] Number: [id number] Current Date: 05/25/2016 16:37:42 Attending Provider: YOLANDA COLÓN NP Primary Care Provider: YOLANDA COLÓN NP ROSEMARIEFRANSICO DOUGLAS has been given the following list of medications: Your Medications It is important to take your medications as directed. Use a pill box or chart to help remind you to take your medications. Please let your doctor or nurse know if you have problems taking your medications. Medication/Strength How to Take Indications/Special Instructions/Comments/Notes for Patient Medication Changes/Routing amLODIPine (amLODIPine 5 mg oral tablet) 1 Tablet(s), Oral, once a day aspirin (aspirin 81 mg oral tablet) 1 Tablet(s), Oral, once a day bifidobacterium-lactobacillus (Probiotic Formula) 1 cap, Oral, once a day buPROPion (buPROPion SR 150 mg/12 hour oral tablet, sustained release) 1 Tablet(s), Oral, two times a day fluticasone nasal (fluticasone 50 mcg/inh nasal spray) 1 [place](s), Nasal, once a day glucosamine-chondroitin (Osteo Bi-Flex) 1 tablets, Oral, two times a day losartan-hydroCHLOROthiazide (losartan-hydroCHLOROthiazide 100mg-25mg oral tablet) 1 Tablet(s), Oral, once a day (Hyzaar) multivitamin with minerals (Centrum Silver Men's oral tablet) 1 Tablet(s), Oral, once a day naproxen (Naprosyn 500 mg oral tablet) 1 Tablet(s), Oral, two times a day as needed for pain omega-3 polyunsaturated fatty acids ([place]-500 oral capsule) 2 Tablet(s), Oral, once a day omeprazole (omeprazole 20 mg oral delayed release capsule) 1 cap, Oral, once a day pravastatin (pravastatin 80 mg oral tablet) 1 Tablet(s), Oral, once a day (at bedtime) sildenafil (sildenafil 25 mg oral tablet) 1 tablet one hour prior to sexual activity, Oral, once a day as needed for Erectile dysfunction terazosin (Hytrin 1 mg oral capsule) 1 cap, Oral, once a day (at bedtime) Stop Taking the Following Medications: Medication list as of 05-25-16 16:37 Attention: If you have any medications at home that are not on this list, DO NOT take them until youcontact your provider for clarification. Give a copy of your medication list to your primary care provider. Update your medication list any time medications or doses are changed and carry your medication list at all times in case of emergency. Electronically Signed By: YOLANDA COLÓN NP Signed On:25-MAY-2016 16:37:40 Additional Information: Source: [facility] POWERCHART Document Id: [id number] NISTRATIVE TECHNICIAN Miscellaneous - Katia Ellis L.P.N. - 05/25/2016 7:59 AM CST Adult Low Back Pain Triage Adult Low Back Pain Triage Entered On: 05/25/2016 8:01 ADMINISTRATIVE TECHNICIAN Performed On: 05/25/2016 7:59 ADMINISTRATIVE TECHNICIAN by KATIA ELLIS LPN Adult Low Back Pain Triage How long have you been experiencing symptoms? : Chronic (more than 12 weeks) Has there been a recent change in your symptoms? : Yes Do you have pain in your legs? : Yes Does it feel like it is related to your back pain? : Yes Have you had fevers or chills in the last 30 days? : No Have you been sick in the last 30 days? : No Surgery or procedures in the last 30 days? : No Do you have a personal history of cancer? : No Have you recently lost any weight? : No Have you had a recent fall or accident? : No Changes in your bowel or bladder function? : No Have you had any numbness in the buttocks? : No Do your legs feel weak or heavy? : No Have you had trouble walking? : No KATIA ELLIS LPN - 05/25/2016 7:59 ADMINISTRATIVE TECHNICIAN FREDRICK Pain Intensity : The pain is moderate at the moment. Personal Care : I can look after myself normally without causing additional pain. Lifting : I can only lift very light weights. Walking : Pain prevents me from walking more than one mile. Sitting : Pain prevents me from sitting for more than 1 hour. Standing : Pain prevents me from standing for more than 1 hour. Sleeping : Because of pain I have less than 6 hours sleep. Social Life : My social life is normal but increases the degree of pain. Traveling : I can travel anywhere but it gives me additional pain. KATIA ELLIS LPN - 05/25/2016 7:59 ADMINISTRATIVE TECHNICIAN Source: [facility] POWERCHART Document Id: [id number] ADMINISTRATIVE TECHNICIAN!26 NISTRATIVE TECHNICIAN Miscellaneous - Katia Ellis L.P.N. - 05/25/2016 7:57 AM CST Adult Real Estate Office Manager Intake/History Adult Real Estate Office Manager Intake/History Entered On: 05/25/2016 7:59 ADMINISTRATIVE TECHNICIAN Performed On: 05/25/2016 7:57 ADMINISTRATIVE TECHNICIAN by KATIA ELLIS GUTTER INSTALLER Intake Chief Complaint : low back pain and wants right eye checked. Temperature Core : 37.1 DegC(Converted to: 98.8 DegF) Peripheral Pulse Rate : 68 /min Systolic Blood Pressure : 138 mmHg Diastolic Blood Pressure : 72 mmHg NIBP Mean : 94 mmHg SpO2 : 96 % Oxygen Therapy : Room air Height : 176 cm(Converted to: 5 ft 9 inch(es), 69 inch(es)) Actual Weight : 149.1 kg(Converted to: 328 lb 11 oz) Dosing Weight Clinic : 149.1 kg Clinic BSA : 2.7 Body Mass Index : 48.13 kg/m2 KATIA ELLIS LPN - 05/25/2016 7:57 ADMINISTRATIVE TECHNICIAN General Info Information Given By : Patient Languages : Kuwaiti Is Patient Female and 13-50 no hysterectomy : No KATIA ELLIS LPN - 05/25/2016 7:57 ADMINISTRATIVE TECHNICIAN Subjective Pain Symptoms : Yes KATIA ELLIS LPN - 05/25/2016 7:57 ADMINISTRATIVE TECHNICIAN Pain Scale Pain Scale Verbal 0-10 : Open KATIA ELLIS LPN - 05/25/2016 7:57 ADMINISTRATIVE TECHNICIAN Pain Pain Assessment Grid Pain 1 Location : Lower back Laterality : Bilateral Intensity : 2 KATIA ELLIS LPN - 05/25/2016 7:57 ADMINISTRATIVE TECHNICIAN Dependent Habits Exposure to Tobacco Smoke : Other: former Smoking Status : Former smoker Tobacco 2A : Yes Tobacco Use/Currently Using : No Tobacco Use/Last 30 Days : No Tobacco Use/Last 12 months : No Tobacco Last Use/Year : 1995 KATIA ELLIS LPN - 05/25/2016 7:57 ADMINISTRATIVE TECHNICIAN Caffeine Use Grid Caffeine Use : None KATIA ELLIS LPN - 05/25/2016 7:57 ADMINISTRATIVE TECHNICIAN Recreational Drug Use Grid Drug Use : None KATIA ELLIS LPN - 05/25/2016 7:57 ADMINISTRATIVE TECHNICIAN [facility] Document Id: [id number] ADMINISTRATIVE TECHNICIAN!43 NISTRATIVE TECHNICIAN documented in this encounter Plan of Treatment Upcoming Encounters Date Type Specialty Care Team Description 02/11/2022 Appointment Laboratory Medicine Neli Hearn M.D. [address] [place] [phone] (Wo rk) 02/14/2022 Office Visit Family Medicine Lilli Hearn M.D. [address] [place] [phone] (Wo rk) documented as of this encounter Visit Diagnoses Not on filedocumented in this encounter
--- OUTSIDE RECORDS SUMMARY | 2021-12-28 10:01 | XMS_ITS | Encounter Summary ---
:1945 Author Organization [facility] Address [address] [place] [address] Care Team Providers Name Role Phone Yolanda Colón APRN, C.N.P. Primary Care Provider [phone] Encounter Details Date Type Department Care Team Description 02/15/2017 Orders Only Department of Family Yolanda Colón Mellitus Type 2 (HCC) (Primary Dx); Medicine in [place], C.N.P. Retention Fluid; [facility] a [address] Hypertension Essential Primary [address] [place] [phone] Social History Tobacco Use Types Packs/Day Years [...] 1 to 4 times per year 11/2019 sikh services? 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 [address] [place] [phone] (Wo rk) 02/14/2022 Office Visit Family Medicine Lilli Hearn M.D. [address] [place] [phone] (Wo rk) documented as of this encounter Results (ABNORMAL) Hemoglobin A1c (08/15/2017 8:32 AM CDT) P athologist Signature Hemoglobin A1c, 6.2 (H) 4.2 - 5.6 08/15/2017 [facility] % 12:08 PM CDT [facility] Comment: Hemoglobin A1c values of 5.7-6.4 percent indicate an increased risk for developing diabetes bolivar sanchez. In diabetic patients, HbA1c goals should be discussed with healthcare provider. Specimen Anatomical Collection Method Collection Time Receive d Time (Source) Location / / Volume Laterality Blood (Blood, 08/15/2017 8:32 AM 08/16/19 18 Venous) CDT 11:12 AM CDT Yolanda Colón APRN, C.N.P. LAB BLOOD ADD-ON Performing Organization Address City/State/ZIP Code Phon e Number [address] [address] [place] [facility] documented in this encounter Visit Diagnoses Diagnosis Diabetes Mellitus Type 2 (HCC) - Primary Retention Fluid Hypertension Essential Primary documented in this encounter Care Teams Vacuum Metalizing Supervisor Relationship Specialty Start Date End Date Yolanda Colón APRN, C.N.P. PCP - General 09/08/16 documented as of this encounter
--- OUTSIDE RECORDS SUMMARY | 2021-12-28 10:01 | XMS_ITS | Encounter Summary ---
:1945 Author Organization [facility] Address [address] [place] [address] Care Team Providers Name Role Phone Unavailable Primary Care Provider Unavailable Encounter Details Date Type Department Care Team Description 08/12/2016 Hospital Encounter [facility] Vazquez Villaseñor M.D. Social History Tobacco Use Types Packs/Day Years [...] or relatives? How often do you attend sikhism or 1 to 4 times per year 11/2019 mormonism services? 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 mg per tablet nabumetone (for_RELAFEN) Take 1 tablet by 0 08/1001/09/2018 500 mg tablet mouth 2 (two) times a day as needed. omeprazole Take 1 capsule by 0 02/16/2016 017 (for_PriLOSEC) 20 mg mouth daily. capsule pravastatin Take 1 tablet by 0 02/16/2016 018 (for_PRAVACHOL) 80 mg mouth at bedtime. tablet terazosin (for_HYTRIN) 1 Take 1 capsule by 0 01/2603/10/2017 mg capsule mouth at bedtime. documented as of this encounter Consult Notes Harrison Lane M.D. - 08/12/2016 3:00 PM CDT [id number] CHIEF COMPLAINT/REASON FOR VISIT He is a 70-year-old male who for the last 5 years has had a developing mass in the base of his neck directly posteriorly. He had a recent CT in March that showed that this mass was a 9.4 x 3.8 x 6 cmfatty mass in the subcutaneous tissue. PAST MEDICAL/SURGICAL HISTORY Past medical history: Other medical problems related to obesity. Sleep apnea. GERD. BMI is around 48. Hyperlipidemia. Hypertension. Past surgical history: Hernia repair. FAMILY HISTORY His mother had breast cancer. Father had prostate cancer. 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 He is . MEDICATIONS He is on several medications including: Aspirin. Amlodipine. Bupropion. Hytrin. Losartan/hydrochlorothiazide. Naprosyn. He takes [place] 500. Omeprazole. He takes Viagra. Probiotic. SYSTEMS REVIEW Essentially noncontributory. PHYSICAL EXAMINATION GENERAL: He is an obese male, by his own admission, he weighs I think around 320 pounds. His ideal weight is about 100 pounds less than that. BACK: Shows a large about 10 cm in diameter lipoma in the subcutaneous tissue. It is right at the base of the neck. Also, I should note that he claims that the lipoma causes him to keep his head more forward which when he is driving causes him to look over his glasses which is probably not good since he needs his glasses to drive. IMPRESSION/REPORT/PLAN A large lipoma at the base of the neck. RECOMMENDATIONS: I think the patient would probably be well advised to have this lipoma removed as it is getting larger, and has even gotten larger since he got the CT scan. In discussing the removal of the lipoma the patient said that despite the fact that the sutures would all be placed underneath and that he usually could go back to work fairly soon he says it is a rather dirty environment and he might want to wait to have the lipoma removed until the fall. I told him he can think about whether he wants to move forward on it. If he does then he can contact us. We will set him up for the surgery and have him get a preop at that time. He took our card today and will call back if he wants to move forward sooner than the fall. ADMINISTRATIVE BILLING I spent about 30 minutes with Fransico Torres in consultation. Harrison Lane M.D./pos Electronically Signed By: HARRISON LANE MD On: 08/19/2016 03:29 PM Source: [facility] [email or web address] Document Id: [id number] documented in this encounter Miscellaneous Notes Miscellaneous - Harrison Lane M.D. - 08/12/2016 4:16 PM CDT Ambulatory Patient Summary [facility] [address] [id number] Visit Information Name: FRANSICO MACDONALD [facility] Number: [id number] Current Date: 08/12/2016 16:16:12 Physicians Attending Provider: HARRISON LANE MD Primary Care Provider: JULIO LOZADA MULTIPLEX OPERATOR FRANSICO MACDONALD has been given the following list of [...] nasal (fluticasone 50 mcg/inh nasal spray) 1 [place](s), Nasal, once a day glucosamine-chondroitin (Osteo Bi-Flex) 1 tablets, Oral, two times a day losartan-hydroCHLOROthiazide (losartan-hydroCHLOROthiazide 100mg-25mg oral tablet) 1 Tablet(s), Oral, once a day (Hyzaar) multivitamin with minerals (Centrum Silver Men's oral tablet) 1 Tablet(s), Oral, once a day nabumetone (Relafen 500 mg oral tablet) 1 Tablet(s), Oral, two times a day as needed for Pain omega-3 polyunsaturated fatty acids ([place]-500 oral capsule) 2 Tablet(s), Oral, once a day omeprazole (omeprazole 20 mg oral delayed release capsule) 1 cap, Oral, once a day pravastatin (pravastatin 80 mg oral tablet) 1 Tablet(s), Oral, once a day (at bedtime) *sildenafil (sildenafil 25 mg oral tablet) 1 tablet one hour prior to sexual activity, Oral, once a day as needed for Erectile dysfunction terazosin (Hytrin 1 mg oral capsule) 1 cap, Oral, once a day (at bedtime) * You have let us know that you are not taking this medication as listed. Please talk with your primary care provider or the health care provider who prescribed the medication as soon as possible. Stop Taking the Following Medications: Medication list as of 08-12-16 16:16 Attention: If you have any medications at home that are not on this list, DO NOT take them until youcontact your provider for clarification. Give a copy of your medication list to your primary care provider. Update your medication list any time medications or doses are changed and carry your medication list at all times in case of emergency. Electronically Signed By: HARRISON LANE MD Signed On:12-AUG-2016 16:13:45 Your Allergies & Intolerances Substance Reaction Symptoms Category Comments sulfa drugs irritating; feels jumpy Drug Tylenol Drug Your Problem List Problem Status Onset Comments Hypertension Essential (401.9) Active Hypercholesterolemia Active Psoriasis NOS Active Morbid Obesity Body Mass Index (BMI) >40 Adult Active Obstructive Sleep Apnea Adult (DEVORA) Active Your Upcoming Appointments Date Time Location Provider No Appointments found Attention: Contact your local Clinic if further appointment detail needed. Lipoma (No Treatment) A lipoma is a local overgrowth of fatty tissue. It appears as a soft raised area, usually less than 2 inches across. It is a benign condition (not cancer). Home care General information regarding lipoma includes: No special care is needed for a lipoma. You can consider removal for cosmetic reasons. Follow-up care Follow up with your doctor or as advised by our staff if you want to have the lipoma removed at a later time. When to seek medical care Get prompt medical attention if any of the following occur: ?? Redness, pain, tenderness, or drainage from the lipoma ?? Lipoma begins to enlarge or change shape ?? Changes in the color of the skin over the lipoma ?? [id number] [facility], [address] [place] [address]. All rights reserved. This information is not intended as a substitute for professional medical care. Always follow your healthcare professional's instructions. Consider Using Patient Online Services Patient Online [...] if you dont have one. Go to [email or web address] and click on Create Your Account. Then, follow the directions to complete the online form. Youll be asked for your [facility] number which you can find at the top of this document. Your Goals/Additional instructions: Source: [facility] POWERCHART Document Id: [id number] Miscellaneous - Harrison Lane M.D. - 08/12/2016 4:16 PM CDT Ambulatory Discharge Medication List [facility] [address] [id number] Visit Information Name: FRANSICO MACDONALD [facility] Number: [id number] Current Date: 08/12/2016 16:16:11 Attending Provider: HARRISON LANE MD Primary Care Provider: JULIO LOZADA MULTIPLEX OPERATOR FRANSICO MACDONALD has been given the following list of [...] nasal (fluticasone 50 mcg/inh nasal spray) 1 [place](s), Nasal, once a day glucosamine-chondroitin (Osteo Bi-Flex) 1 tablets, Oral, two times a day losartan-hydroCHLOROthiazide (losartan-hydroCHLOROthiazide 100mg-25mg oral tablet) 1 Tablet(s), Oral, once a day (Hyzaar) multivitamin with minerals (Centrum Silver Men's oral tablet) 1 Tablet(s), Oral, once a day nabumetone (Relafen 500 mg oral tablet) 1 Tablet(s), Oral, two times a day as needed for Pain omega-3 polyunsaturated fatty acids ([place]-500 oral capsule) 2 Tablet(s), Oral, once a day omeprazole (omeprazole 20 mg oral delayed release capsule) 1 cap, Oral, once a day pravastatin (pravastatin 80 mg oral tablet) 1 Tablet(s), Oral, once a day (at bedtime) *sildenafil (sildenafil 25 mg oral tablet) 1 tablet one hour prior to sexual activity, Oral, once a day as needed for Erectile dysfunction terazosin (Hytrin 1 mg oral capsule) 1 cap, Oral, once a day (at bedtime) * You have let us know that you are not taking this medication as listed. Please talk with your primary care provider or the health care provider who prescribed the medication as soon as possible. Stop Taking the Following Medications: Medication list as of 08-12-16 16:16 Attention: If you have any medications at home that are not on this list, DO NOT take them until youcontact your provider for clarification. Give a copy of your medication list to your primary care provider. Update your medication list any time medications or doses are changed and carry your medication list at all times in case of emergency. Electronically Signed By: HARRISON LANE MD Signed On:12-AUG-2016 16:13:45 Additional Information: Source: [facility] [email or web address] Document Id: [id number] Miscellaneous - oMna Shah L.P.N. 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 Intake/History Adult Senior J2Ee Developer Intake/History Entered On: 08/12/2016 15:16 CDT Performed On: 08/12/2016 15:13 CDT by MONA SHAH electronic health records specialist Chief Complaint : patient presents with lipoma to upper back/neck Height : 176 cm(Converted to: 5 ft 9 inch(es), 69 inch(es)) MONA SHAH RN - 08/12/2016 15:13 CDT General Info Information Given By : Patient Preferred Communication Mode : Verbal Languages : Burundian Is Patient Female and 13-50 no hysterectomy : No MONA SHAH RN - 08/12/2016 15:13 CDT Subjective Pain Symptoms : No MONA SHAH RN - 08/12/2016 15:13 CDT Dependent Habits Exposure to Tobacco Smoke : Other: former Smoking Status : Former smoker Tobacco 2A : Yes Tobacco Use/Currently Using : No Tobacco Use/Last 30 Days : No Tobacco Use/Last 12 months : No Tobacco Last Use/Year : 1995 MONA SHAH RN - 08/12/2016 15:13 CDT Caffeine Use Grid Caffeine Use : None MONA SHAH RN - 08/12/2016 15:13 CDT Recreational Drug Use Grid Drug Use : None MONA SHAH RN - 08/12/2016 15:13 CDT Source: [facility] [employer] Document Id: [id number] CDT!25 documented in this encounter Plan of Treatment Upcoming Encounters Date Type Specialty Care Team Description 02/11/2022 Appointment Laboratory Medicine Neli Hearn M.D. [address] [place] [address] (Wo rk) 02/14/2022 Office Visit Family Medicine Lilli Hearn M.D. [address] [place] [address] (Wo rk) documented as of this encounter Visit Diagnoses Not on filedocumented in this encounter
--- OUTSIDE RECORDS SUMMARY | 2021-12-28 10:01 | XMS_ITS | Encounter Summary ---
:1945 Author Organization [facility] Address [address] [place] [address] Care Team Providers Name Role Phone Unavailable Primary Care Provider Unavailable Encounter Details Date Type Department Care Team Description 08/31/2015 Hospital Encounter HX [facility] Nathanael Pérez ED, M.D. [address] [place], [place] [phone] (Wo rk) Social History Tobacco Use Types Packs/Day Years Used Date Smoking Tobacco: Never Assessed Alcohol Habits Answer Date Recorded How often [...] or relatives? How often do you attend synagogue or 1 to 4 times per year 11/2019 spiritism services? Do you belong to any clubs or No 12/04/2019 organizations such as synagogue groups, unions, fraternal or athletic groups, or [...] at Date Recorded Male 04/20/2021 3:56 PM [employer] documented as of this encounter Last Filed Vital Signs Vital Sign Reading Time Taken Comments Blood Pressure 146/85 08/31/2015 10:50 AM CDT Pulse 63 08/31/2015 10:50 AM CDT Temperature - - Respiratory Rate 16 08/31/2015 10:50 AM CDT Oxygen Saturation - - Inhaled Oxygen Concentration - - Weight - - Height 176 cm (5' 9.29) 08/31/2015 10:50 AM CDT Body Mass Index - - documented in this encounter Discharge Summaries Deborah Rg R.N. - 08/31/2015 11:21 AM CDT ED Discharge Instructions [facility] [address] [place] [address] Name: FRANSICO MACDONALD Date of : 1945 12:00 AM Visit Date: 08/31/2015 8:37 AM [facility] Number: [phone] Address: [address] [place] [phone] Primary Care Provider: JULIO LOZADA NP IMPORTANT: [facility] in [place] would like to thank you for allowing us to assistyou with your healthcare needs. The following includes patient education materials and information regarding your injury/illness. Diagnosis: Strain Hip Flexor Initial L Follow-Up Instructions: With: Address: When: DI PAYAN [address] [place] [phone] Business (1) Within As Needed Comments: Low lumbar back pain with previous surgery With: Address: When: Follow up with primary care provider Within 3 - 5 days With: Address: When: JULIO LOZADA [address] [place] [phone] Business (2) Within As Needed Your Upcoming Appointments: Date Time Location Provider No Appointments found Patient Education Materials: Hip Strain You have a strain of the muscles around the hip joint. A muscle strain is a stretching or tearing ofmuscle fibers. This causes pain, especially with motion of that muscle. There may also be some swelling and bruising. Home Care: Stay off the injured leg as much as possible until you can walk on it without pain. If you have a lot of pain with walking, crutches or a walker may be prescribed. (These can be rented or purchased at many pharmacies and surgical or orthopedic supply stores). Follow your doctor's advice regarding whento begin bearing weight on that leg. Apply an ice pack (ice cubes in a plastic bag, wrapped in a towel) over the injured area for 20 minutes every 1-2 hours the first day. Continue with ice packs 3-4 times a day for the next two days, then as needed for the relief of pain and swelling. Unless otherwise instructed, on the fourth day you may begin hot soaks or hot packs (small towel soaked in hot water) 3-4 times a day while you gently exercise the involved area. You may use acetaminophen (Tylenol) or ibuprofen (Motrin, Advil) to control pain, unless another pain medicine was prescribed. [NOTE: If you have chronic liver or kidney disease or ever had a stomach ulcer or GI bleeding, talk with your doctor before using these medicines.] If you play sports, you may resume these activities when you are able to hop and run on the injured leg without pain. Follow Up with your doctor, or as advised by our staff, if your symptoms do not begin to improve after one week. Further tests may be needed. [NOTE: If X-rays were taken, they will be reviewed by a radiologist. You will be notified of any newfindings that may affect your care.] Get Prompt Medical Attention if any of the following occur: ?? Increased swelling or increased bruising ?? Pain becomes worse ?? Decreased ability to bear weight on the injured side ?? [id number] [facility], [address] [place] [address]. All rights reserved. This information is not [...] if you dont have one. Go to [email or web address] and click on Create Your Account. Then, follow the directions to complete the online form. Youll be asked for your [facility] number which you can find at the top of this document. ED Tests and Procedures: Order Status XR Pelvis 2 or less views Canceled XR Lumbar Spine 2 or 3 views Completed Urinalysis with Culture if Indicated Completed XR Pelvis Hip Left 1 view Completed Discharge Prescriptions & Home Medications: Medication/Strength Dose Route Frequency Indications/Special Instructions/Comments/Notes predniSONE (predniSONE 50 mg oral tablet) 50 mg Oral once a day for 5 Days rdrldiazepam (Valium 5 mg oral tablet) 5 mg Oral three times a day as needed for Muscle spasm HYDROcodone-acetaminophen (HYDROcodone-acetaminophen 5 mg-325 mg oral tablet) 1 to 2 tablets Oral every 6 hours as needed for Pain No more than 4,000mg acetaminophen/24hrs buPROPion (buPROPion SR 150 mg/12 hour oral tablet, sustained release) 150 mg Oral two times a day pravastatin (pravastatin 80 mg oral tablet) 80 mg Oral once a day (at bedtime) amLODIPine (amLODIPine 5 mg oral tablet) 5 mg Oral once a day fluticasone nasal (fluticasone 50 mcg/inh nasal spray) 1 spray(s) Nasal once a day losartan-hydrochlorothiazide (losartan-hydrochlorothiazide 100 mg-25 mg oral tablet) 1 tab(s) Oral once a day (Hyzaar) omeprazole (omeprazole 20 mg oral delayed release capsule) 20 mg Oral once a day naproxen (Naprosyn 500 mg oral tablet) 500 mg Oral two times a day as needed for pain multivitamin with minerals (Centrum Silver Men's oral tablet) 1 tab(s) Oral once a day sildenafil (sildenafil 25 mg oral tablet) 1 tablet one hour prior to sexual activity Oral once a dayas needed for Erectile dysfunction terazosin (Hytrin 1 mg oral capsule) 1 mg Oral once a day (at bedtime) omega-3 polyunsaturated fatty acids ([place]-500 oral capsule) 1 cap(s) Oral once a day glucosamine-chondroitin (Osteo Bi-Flex) 1 tablets Oral two times a day aspirin (aspirin 81 mg oral tablet) 1 tab(s) Oral once a day Attention: If you have any medications at home not on this list, DO NOT take them until you contact your provider for clarification. Give a copy of your medication list to your primary care provider. Update your medication list any time medications or doses are changed and carry your medication list at all times in case of emergency. IMPORTANT: We examined and treated you today on an emergency basis only. This was not a substitute for, or an effort to provide, complete medical care. In most cases, you must let your doctor check youagain. Tell your doctor about any new or lasting problems. We cannot recognize and treat all injuries or illnesses in one Emergency Department visit. If you had special tests, such as EKG's or X- rays, we will review them again within 24 hours. We will call you if there are any new suggestions. Please follow the instructions above carefully. If you are being transferred to another facility, your follow up plan of care will be determined by the receiving facility. If you are a patient that is being discharged from the Emergency Department after receiving narcotics or other medications that may impair your judgment you may be a risk to yourself or others if you operate a motor vehicle. We recommend that you arrange a ride home with a responsible democrat. MERY Rosa LAWRENCE ARNOLD , or responsible democrat have received this information and my questionshave been answered. I have discussed any challenges I see with this plan with the nurse or physician. Patient Signature or Responsible Republican/Relationship Date Time Provider Signature Date Time IMPORTANT: We examined and treated you today on an emergency basis only. This was not a substitute for, or an effort to provide, complete medical care. In most cases, you must let your doctor check youagain. Tell your doctor about any new or lasting problems. We cannot recognize and treat all injuries or illnesses in one Emergency Department visit. If you had special tests, such as EKG's or X- rays, we will review them again within 24 hours. We will call you if there are any new suggestions. Please follow the instructions above carefully. If you are being transferred to another facility, your follow up plan of care will be determined by the receiving facility. If you are a patient that is being discharged from the Emergency Department after receiving narcotics or other medications that may impair your judgment you may be a risk to yourself or others if you operate a motor vehicle. We recommend that you arrange a ride home with a responsible democrat. I, FRANSICO MACDONALD , or responsible democrat have received this information and my questionshave been answered. I have discussed any challenges I see with this plan with the nurse or physician. Patient Signature or Responsible Republican/Relationship Date Time Provider Signature Date Time This document has images extracted. Please consider using [employer] for all your patient education needs. Source: [facility] POWERCHART Document Id: [id number] Deborah Rg R.N. - 08/31/2015 11:21 AM CDT ED Depart Summary [facility] Emergency Department Clinical Discharge Summary PERSON INFORMATION Name FRANSICO MACDONALD Age 69 Years 1945 12:00 AM Sex Male Language Rwandan PCP JULIO LOZADA NP Marital Status N [id number] Visit Id Visit Reason Hip pain-swelling; hip pain Specialty Enc Type Emergency Med Service Emergency Medicine Referred by Track Group MAQN ED Discharge 08/31/2015 11:00 AM Tracking Id [id number] Checkout 08/31/2015 11:00 AM Checkin 08/31/2015 8:37 AM Acuity 4 -Less Urgent Dispo Type * Discharged to Home or Self Care Arrival 08/31/2015 8:37 AM Reg Status LOS 000 02:23 Address: [address] [place] [phone] Comment: PROVIDER INFORMATION Provider Role Provider Contact Time RENARD ROY MD ED Provider 08/31/15 08:40 DEBORAH RG SURVEYOR HELPER ROD Nurse 08/31/15 08:57 DIAGNOSIS Strain Hip Flexor Initial L Comment: PATIENT EDUCATION INFORMATION Instructions: HIP STRAIN Follow up: With: Address: When: DI PAYAN [address] [place] [address] Business (1) Within As Needed Comments: Low lumbar back pain with previous surgery With: Address: When: Follow up with primary care provider Within 3 - 5 days With: Address: When: JULIO LOZADA [address] [place] [phone] Business (2) Within As Needed [facility] Document Id: [id number] documented in this encounter Medications at Time [...] take 2 caps daily aspirin 81 mg capsule Take 1 tablet by 0 07/16/19 11 01/09/2018 mouth daily. documented as of this encounter ED Notes Deborah Rg R.N. - 08/31/2015 11:00 AM CDT ED Disposition Summary ED Disposition Summary Entered On: 08/31/2015 11:21 CDT Performed On: 08/31/2015 11:00 CDT by DEBORAH RG RN ED Disposition Summary Present in Room During Exam/Procedure : Spouse Mode of Discharge : Wheelchair Transportation : Private vehicle Discharge From ED With : Home Med List Printed Discharge Instructions Given to Patient : Yes Patient Status at Discharge from ED : Improved DEBORAH RG RN - 08/31/2015 11:19 CDT Source: [employer] Document Id: [id number] CDT!8 Deborah Rg R.N. - 08/31/2015 10:50 AM CDT ED Nurse Reassess ED Nurse Reassess Entered On: 08/31/2015 11:18 CDT Performed On: 08/31/2015 10:50 CDT by DEBORAH RG RN Pain Assessment Pain Symptoms : Yes DEBORAH RG RN - 08/31/2015 11:17 CDT Pain Scale Pain Scale Verbal 0-10 : Open DEBORAH RG RN - 08/31/2015 11:17 CDT Pain Pain Assessment Grid Pain 1 Location : Hip Intensity : 5 Acceptable Intensity : 4 Quality : Sharp (Comment: pain with weight bearing, otherwise comfortable [DEBORAH RG RN - 08/31/2015 11:17 CDT] ) DEBORAH RG RN - 08/31/2015 11:17 CDT Resp Reassess Respiratory Patient Stated Symptoms : None Distress : None Airway : Patent Respirations : Unlabored Cough : None DEBORAH RG RN - 08/31/2015 11:17 CDT CV Reassess CV Patient Stated Symptoms : None DEBORAH RG RN - 08/31/2015 11:17 CDT GI Reassess GI Patient Stated Symptoms : None DEBORAH RG RN - 08/31/2015 11:17 CDT /OB Reassess Patient Stated Symptoms : None DEBORAH RG RN - 08/31/2015 11:17 CDT Source: [facility] POWERCHART Document Id: [id number] CDT!24 Deborah Rg R.N. - 08/31/2015 9:45 AM CDT ED Nurse Reassess ED Nurse Reassess Entered On: 08/31/2015 10:05 CDT Performed On: 08/31/2015 9:45 CDT by DEBORAH RG RN Pain Assessment Pain Symptoms : Yes DEBORAH RG RN - 08/31/2015 10:04 CDT Pain Scale Pain Scale Verbal 0-10 : Open DEBORAH RG RN - 08/31/2015 10:04 CDT Pain Pain Assessment Grid Pain 1 Location : Hip Intensity : 10 Quality : Aching, Sharp DEBORAH RG RN - 08/31/2015 10:04 CDT Comfort Measures Comfort Measures Grid Comfortable Environment : Yes DEBORAH RG RN - 08/31/2015 10:04 CDT Patient Response : Back from xray. Dilaudid given as ordered. Comfort Measures Response : Comfort level unchanged DEBORAH RG RN - 08/31/2015 10:04 CDT Resp Reassess Respiratory Patient Stated Symptoms : None Distress : None Airway : Patent Respirations : Unlabored Cough : None DEBORAH RG RN - 08/31/2015 10:04 CDT Neuro Reassess Last Well Time Known : Not applicable Orientation : Oriented x 3 Characteristics of Speech : Clear Level of Consciousness : Alert DEBORAH RG RN - 08/31/2015 10:04 CDT GI Reassess GI Patient Stated Symptoms : None DEBORAH RG RN - 08/31/2015 10:04 CDT /OB Reassess Patient Stated Symptoms : None DEBORAH RG RN - 08/31/2015 10:04 CDT Musculoskeletal Reassess Musculoskeletal Note : hip pain unchanged from arrival. Raymond xrays. Dilaudid given for pain as ordered. DEBORAH RG RN - 08/31/2015 10:04 CDT Source: [facility] [employer] Document Id: [id number] CDT!33 Renard Roy M.D. - 08/31/2015 9:12 AM CDT Hip pain-swelling Patient: FRANSICO MACDONALD Age: 69 years Sex: Male : 1945 Author: RENARD ROY MD Attachments: None Basic Information Additional information: Chief Complaint from Nursing Triage Note : Chief Complaint Description 08/31/2015 8:50 CDT Chief Complaint Description Pt presents for eval of left hip pain. States has been having some pain for a while. Saw chiropractor on Monday and advised he had a pinched nerve. Initially felt better, but now pain uncontrolled. . History of Present Illness The patient is a 69-year-old male presenting to the emergency department with complaint of left hip pain, left lower back pain. Patient notes previous surgical history of his low back approximately 18 years ago. 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 Patient saw his prior doctor on Monday, had an adjustment, was told it was likely radicular in nature, likely a pinched nerve, noted some improvement after the chiropractor manipulation, but now is here with worsening pain, states pain is severe with ambulation. Patient notes full range of motion of the left hip, denies any trauma, denies any fevers. Patient notes severe pain with attempt at standing. He has tried home naproxen without significant relief, moderate pain at this time, deniesany swelling, now here for emergent evaluation. Denies any hematuria, urinary frequency or urgency, Review of Systems Constitutional symptoms: Negative except as documented in HPI. Skin symptoms: Negative except as documented in HPI. Eye symptoms: Negative except as documented in HPI. ENMT symptoms: Negative except as documented in HPI. Respiratory symptoms: Negative except as documented in HPI. Cardiovascular symptoms: Negative except as documented in HPI. Gastrointestinal symptoms: No abdominal pain, no nausea, no vomiting, no diarrhea, no constipation, no rectal bleeding or no rectal pain. Genitourinary symptoms: No dysuria or no hematuria. Musculoskeletal symptoms: Back pain, Muscle pain and Joint pain. Neurologic symptoms: Negative except as documented in HPI. Health Status Allergies: Allergic Reactions (Selected) Severity Not Documented Tylenol- No reactions were documented. Nonallergic Reactions (Selected) Severity Not Documented Sulfa drugs- Irritating; feels jumpy.. Past Medical/ Family/ Social History Medical history: Resolved Morbid Obesity (278.01): Resolved. Hyperlipidemia (272.4): Resolved. Anxiety (43409306): Resolved.. Surgical history: CT angiography of coronary arteries ([id number]) on 06/13/2013 at 67 Years. X-ray of abdomen ([id number]) on 12/17/2009 at 64 Years. Hernia repair ([id number]).. Family history: Dementia Mother CA - Breast cancer Mother Coronary artery disease Father CA - Cancer of prostate Brother . Physical Examination Vital Signs: Vital Signs 08/31/2015 8:50 CDT Temperature Core 37.3 DegC Peripheral Pulse Rate 62 /min Respiratory Rate 18 /min SpO2 99 % Systolic Blood Pressure 162 mmHg >HHI Diastolic Blood Pressure 99 mmHg >HHI Mean Arterial Pressure 120 mmHg , Measurements 08/31/2015 8:50 CDT Height 176 cm Dosing Weight 150.00 kg NA Estimated Weight 150 kg , SpO2 08/31/2015 8:50 CDT SpO2 99 % . General: Alert and no acute distress. Skin: Warm and dry. Head: Normocephalic and atraumatic. Neck: Supple and trachea midline. Ears, nose, mouth and throat: Oral mucosa moist and no pharyngeal erythema or exudate. Cardiovascular: Normal peripheral perfusion and No edema. Respiratory Gastrointestinal: Soft, Nontender and Non distended. Musculoskeletal: No swelling. no deformity. Neurological: Alert and oriented to person, place, time, and situation and No focal neurological deficit observed. Medical Decision Making Differential Diagnosis:Hip fracture, hip contusion, hip sprain, hip strain, tendonitis, bursitis, herniated disc, sciatica, groin strain, arthritis not hip dislocation, not femoral shaft fracture, not fall, not septic arthritic hip. Results review:Lab results : Lab View 08/31/2015 10:12 CDT UA Color Yellow UA Clarity Clear UA Spec Grav 1.015 UA pH 7.5 UA Protein Negative mg/dL UA Glucose Negative mg/dL UA Ketones Negative mg/dL UA Bili Negative UA Urobilinogen 0.2 mg/dL UA Blood Negative UA Nitrite Negative UA Leuk Est Negative UR WBC None Seen /HPF UR RBC None Seen /HPF . Radiology results:X-ray, * Final Report * Reason For Exam L hip pain Report Exam: XR Pelvis Hip Left 1 view Clinical history: L hip pain Comparison: None Findings: Visualized bones of the pelvis are grossly intact and well aligned. There is no significant degenerative change. There is no evidence for acute injury. Impression: No evidence for acute injury. , * Final Report * Reason For Exam low back pain Report EXAM: XR Lumbar Spine 2 or 3 views INDICATION: low back pain COMPARISON: None. FINDINGS: There are 5 lumbar-type vertebrae which are normal in height and alignment without evidence of fracture or destructive lesions. There is vacuum degenerated disc disease with degenerative facet change at L4-5 and L5-S1. Remaining lumbar disc levels are relatively preserved except for minimal spurring at L3-4. Sacroiliac joints are unremarkable. There is a degenerative facet disease at multiple levels in the lower thoracic spine. IMPRESSION: 1. No lumbosacral spine fracture. 2. Advanced degenerative disc and facet disease at L4-5 and L5-S1. . Impression and Plan Patient is a 69-year-old male presenting to the emergency department with worsening left back and left hip pain radiating to the groin. Urine study is negative for infection, negative for blood. Patient has no significant elevated blood pressure, story consistent with non mechanical etiology, worse with movement. X-ray of his low back is negative for any acute findings, he does have moderate advance she had disk disease, no evidence of fracture pathology. X-ray of the patient's pelvis shows no evidence of acute injury, no significant degenerative changes. Patient was given 1 mg of hydromorphone intramuscular with improvement of his overall pain, given 2 tablets of Vicodin for pain management, he will use Vicodin, Valium for short-term pain control at home, additionally we have given him a short burst of prednisone for radicular component. Plan is to follow up with his primary care provider or considers orthopedic and fracture clinic followup with previous evaluation from them in the past. He will return with any acute worsening of his condition, focal motor deficits, otherwise plan for followup for further care management. FINAL DIAGNOSIS: Left hip strain, lower back pain with radiation left-sided Disposition: Home with outpatient primary care and orthopedic followup as needed. Electronically Signed By: RENARD ROY MD On: 08/31/2015 10:46 AM Modified by and Electronically Signed by: RENARD ROY MD On: 08/31/2015 10:46 AM Source: [employer] Document Id: [id number]} Deborah Rg R.N. - 08/31/2015 8:50 AM CDT ED Primary Assessment Document Has Been Updated ED Primary Assessment Entered On: 08/31/2015 8:56 CDT Performed On: 08/31/2015 8:50 CDT by DEBORAH RG RN Reason For Visit (As Of: 08/31/2015 08:56:22 CDT) Problems(Active) Hypercholesterolemia (ICD-9-CM :272.0 ) Name of Problem: Hypercholesterolemia ; Recorder: LILLI JARRELL MD; Confirmation: Confirmed ; Classification: Medical ; Code: 272.0 ; Contributor System: PowerChart ; Last Updated: 06/07/2012 15:04 CDT ; Life Cycle Date: 06/07/2012 ; Life Cycle Status: Active ; Responsible Provider: LILLI JARRELL MD; Vocabulary: ICD-9-CM Hypertension Essential (401.9) (ICD-9-CM :401.9 ) Name of Problem: Hypertension Essential (401.9) ; Recorder: LILLI JARRELL MD; Confirmation: Confirmed ; Classification: Medical ; Code: 401.9 ; Contributor System: PowerChart ; Last Updated: 06/07/2012 15:04 CDT ; Life Cycle Date: 06/07/2012 ; LifeCycle Status: Active ; Responsible Provider: LILLI JARRELL MD; Vocabulary: ICD-9-CM Morbid Obesity Body Mass Index (BMI) >40 Adult (ICD-10-CM :E66.01 ) Name of Problem: Morbid Obesity Body Mass Index (BMI) >40 Adult ; Recorder: THELMA PAYAN MD; Confirmation: Confirmed ; Classification: Medical ; Code: E66.01 ; Contributor System: PowerChart ; Last Updated: 04/16/2015 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 ; Life Cycle Status: Active ; Responsible Provider: THELMA PAYAN MD; Vocabulary: ICD-10-CM Psoriasis NOS (ICD-10-CM :L40.9 ) Name of Problem: Psoriasis NOS ; Recorder: THELMA PAYAN MD; Confirmation: Confirmed ; Classification: Medical ; Code: L40.9 ; Contributor System: PowerChart ; LastUpdated: 03/18/2015 10:06 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 States has been having some pain for a while. Saw chiropractor on Monday and advised he had a pinched nerve. Initially felt better, but now pain uncontrolled. Information Given By : Patient Present in Room During Exam/Procedure : Spouse Mode of Arrival ED : Private vehicle Track : Medical Languages : Rwandan Vital Signs Assessed : Yes Treatments Prior to Arrival : None Is Patient Female and 13-50 no hysterectomy : No DEBORAH RG RN - 08/31/2015 8:50 CDT Vital Signs Temperature Core : 37.3 DegC(Converted to: 99.1 DegF) Peripheral Pulse Rate : 62 /min Respiratory Rate : 18 /min Systolic Blood Pressure : 162 mmHg (>HHI) Diastolic Blood Pressure : 99 mmHg (>HHI) NIBP Mean : 120 mmHg SpO2 : 99 % Oxygen Saturation Monitoring Frequency : Intermittent Oxygen Therapy : Room air Height : 176 cm(Converted to: 5 ft 9 inch(es)) Estimated Weight : 150 kg Estimated Weight Conversion to Pounds : 330 lb DEBORAH RG RN - 08/31/2015 8:50 CDT Pain Assessment Pain Symptoms : Yes DEBORAH RG RN - 08/31/2015 8:50 CDT Pain Scale Pain Scale Verbal 0-10 : Open DEBORAH RG RN - 08/31/2015 8:50 CDT Pain Pain Assessment Grid Pain 1 Location : Hip Laterality : Left Intensity : 10 Acceptable Intensity : 5 Quality : Sharp, Throbbing DEBORAH RG RN - 08/31/2015 8:50 CDT GURJIT GURJIT Level 1 : No GURJIT Level 2 : No GURJIT Level 3 : One DEBORAH RG RN - 08/31/2015 8:50 CDT DCP GENERIC CODE Tracking Acuity : 4 -Less Urgent Tracking Group : [facility] ED DEBORAH RG RN - 08/31/2015 8:50 CDT ID Screen Drug Resistant Organism : No Travel Within Last 21 Days : No Contact with someone with Ebola : No DEBORAH RG RN - 08/31/2015 8:50 CDT TB Symptoms Grid Bloody Sputum : No Fatigue : No Fever : No Loss of Appetite : No Night Sweats : No Persistent Cough Greater Than 3 Weeks : No Weight Loss : No DEBORAH RG RN - 08/31/2015 8:50 CDT Respiratory Airway : Patent Respirations : Unlabored Respiratory Pattern : Regular DEBORAH RG RN - 08/31/2015 8:50 CDT Cardiovascular Heart Rhythm : Regular Skin Color : [place] Skin Description : Dry Skin Temperature : Warm DEBORAH RG RN - 08/31/2015 8:50 CDT Neurological Last Well Time Known : Not applicable Level of Consciousness : Alert Orientation : Oriented x 3 Characteristics of Speech : Clear DEBORAH RG RN - 08/31/2015 8:50 CDT ED Psychosocial Affect/Behavior : Calm, Cooperative, Appropriate Domestic Abuse Concerns : Unable to Screen Behavioral Health Screen/Safety Assmt : No DEBORAH GR RN - 08/31/2015 8:50 CDT Gastrointestinal Nutrition ED : Adequate DEBORAH RG RN - 08/31/2015 8:50 CDT Musculoskeletal Fall Prevention Education Provided : Yes Musculoskeletal Note : left hip pain without known injury, Pain radiates into left groin DEBORAH RG RN - 08/31/2015 8:50 CDT Social Habits Exposure to Tobacco Smoke : Other: former Smoking Status : Former smoker Tobacco 2A : Yes Tobacco Use/Currently Using : No Tobacco Use/Last 30 Days : No Tobacco Use/Last 12 months : No Tobacco Last Use/Year : 1995 DEBORAH RG RN - 08/31/2015 8:50 CDT Recreational Drug Use Grid Drug Use : None DEBORAH RG RN - 08/31/2015 8:50 CDT Source: [facility] [email or web address] Document Id: [id number] CDT!89 documented in this encounter Miscellaneous Notes Miscellaneous - Deborah Rg R.N. - 08/31/2015 11:00 AM CDT Valuables/Belongings Valuables/Belongings Entered On: 08/31/2015 11:21 CDT Performed On: 08/31/2015 11:00 CDT by DEBORAH RG RN Valuables/Belongings Belongings Sent Home With : discharged home with all belongings Home Medication Disposition : None brought in with patient DEBORAH RG RN - 08/31/2015 11:21 CDT Source: [employer] Document Id: [id number] CDT!4 Miscellaneous - Conversion, Historical Provider Ser - 08/31/2015 11:00 AM CDT Coding Summary-Paper Based CODING DATE: 09/10/[address] [facility] STATUS: * Discharged to Home or Self Care PAYOR: Medicare ADMIT DX: M25.552 Pain in left hip REASON FOR VISIT DX: M25.552 Pain in left hip FINAL DX: PRINCIPAL: S76.012A Strain of muscle, fascia and tendon of left hip, initial encounter SECONDARY: I10 Essential (primary) hypertension E78.0 Pure hypercholesterolemia Z87.891 Personal history of nicotine dependence Z88.2 Allergy status to sulfonamides status Z88.8 Allergy status to other drugs, medicaments and biological substances status X58.XXXA Exposure to other specified factors, initial encounter Y92.[address] or not applicable PROCEDURES DOCTOR NAME DATE NOTE: The code number assigned matches the documented diagnosis and / or procedure in the patient's chart. However, the narrative phrase printed from the coding software may appear abbreviated, or result in slightly different terminology. Coded By: PRASANTH DURAN Date Saved: 09/10/2015 11:08 am Source: [employer] Document Id: [id number] Miscellaneous - Deborah Rg R.N. - 08/31/2015 8:37 AM CDT Facility Charge Ticket 2.0 11.0 DX Facility Charge Ticket 2.0 11.0 DX Entered On: 08/31/2015 11:21 CDT Performed On: 08/31/2015 8:37 CDT by DEBORAH RG RN Facility Charge Ticket 2.0 11.0 DX ED Other Charges : Standard ED Encounter TVL Level Translated RTF : Hip pain-swelling TVL:3 TVL Level for Facility Charge Ticket : Level 3 Arrival Mode Calc : 1 Mode of Arrival ED : Private vehicle [facility] Mode of Arrival Interpreted : Standard [facility] Process Management : None Order Management RTF : Laboratory Urinalysis with Culture if Indicated,08/31/15 09:03,RENARD ROY MD Completed Xray XR Lumbar Spine 2 or 3 views,08/31/15 09:02,RENARD ROY MD Completed XR Pelvis Hip Left 1 view,08/31/15 09:02,RENARD ROY MD Completed [facility] Order Management : Lab tests, Xray - plain films 30 Minutes Critical Care : No Nursing Notes RTF : Nursing Notes ED Primary Assessment,08/31/15 08:50,DEBORAH RG SURVEYOR HELPER ROD Nurse Reassess,08/31/15 10:50,DEBORAH RG RN ED Nurse Reassess,08/31/15 09:45,DEBORAH RG RN [facility] Nursing Assessment : Triage and 1-2 nursing assessments [facility] Disposition : Discharge [facility] Total Points with Diagnosis Control : 7 [facility] Visit Level : 65911 Level 3 Treatments Prior to Arrival : None DEBORAH RG RN - 08/31/2015 11:21 CDT Source: [facility] POWERCHART Document Id: [id number] CDT!18 documented in this encounter Plan of Treatment Upcoming Encounters Date Type Specialty Care Team Description 02/11/2022 Appointment Laboratory Medicine Neli Jarrell M.D. [address] [place] [phone] (Wo rk) 02/14/2022 Office Visit Family Medicine Lilli Jarrell M.D. [address] [place] [phone] (Wo rk) documented as of this encounter Procedures Procedure Name Priority Date/Time Associated Diagnosis Comme nts URINALYSIS, Routine 08/31/2015 10:12 AM Results for this MIDSTREAM, WITH CDT procedure ar e in CULTURE IF the results INDICATED section. DX LUMBAR SPINE 2-3 Routine 08/31/2015 9:27 AM Re sults for this VIEWS CDT procedure are i n the results section. DX HIP AND PELVIS Routine 08/31/2015 9:17 AM Resu lts for this LEFT 1 VIEW CDT procedure are i n the results section. documented in this encounter Results Urinalysis, Midstream, with culture if indicated (08/31/2015 10:12 AM CDT) [facility] Method Time Signature HXUr Color Yellow Colorless POWERCHART Clarity Clear Clear POWERCHART Glucose Negative Negative MGDL POWERCHART HXBILIRUBIN Negative Negative POWERCHART Ketones, QL(U) Negative Negative MGDL POWERCHART Specific 1.015 POWERCHART [place], POCT, U Comment: Reference Range Specific [place]: 1.000-1.035 HXBLOOD Negative Negative POWERCHART pH, POCT, Urine 7.5 <5.0 POWERCHART Comment: Reference Range pH: 5.0-8.0 Protein, Ur, Dip Negative Negative MGDL POWERCHAR T Urobilinogen 0.2 0.2 MGDL POWERCHART Comment: Reference Range Urobilinogen: 0.2-1.0 mg/dL HXNITRITE Negative Negative POWERCHART Leukocyte Esterase Negative Negative POWERCHART HXUR WBC. None Seen None Seen HPF POWERCHART HXUR RBC. None Seen None Seen HPF POWERCHART Specimen (Source) Anatomical Collection Method Collection Time Re ceived Time Location / / Volume Laterality Urine, First 08/31/2015 10:12 Voided AM CDT Renard Roy M.D. LAB URINE ORDERABLES Performing Organization Address City/State/ZIP Code Phon e Number POWERCHART DX Lumbar Spine 2-3 Views (08/31/2015 9:27 AM CDT) Anatomical Region Laterality Modality Lumbar Spine N/A Radiographic Imaging Specimen (Source) Anatomical Collection Method Collection Time Re ceived Time Location / / Volume Laterality 08/31/2015 9:27 AM CDT Addenda Addendum by Provider, Mark Anthony GusmanD. o ester 08/31/2015 9:27 AM CDT RAD^^^MA XR LUMBAR SPINE 2 OR 3 VIEWS 08/31/2015 09:27:05 Impressions 08/31/2015 9:51 AM CDT 1. No lumbosacral spine fracture. 2. Advanced degenerative disc and facet disease at L4-5 and L5-S1. Narrative 08/31/2015 9:51 AM CDT EXAM: XR Lumbar Spine 2 or 3 views INDICATION: low back pain COMPARISON: None. FINDINGS: There are 5 lumbar-type verteb brandan which are normal in height and alignment without evidence of fracture or destructive lesions. There is vacuum degenerated dis c disease with degenerative facet change at L4-5 and L5-S1. Remainin g lumbar disc levels are relatively preserved except for minimal spurring at L3-4. Sacroiliac joints are unremarkable. There is a dege nerative facet disease at multiple levels in the lower thoracic sp ine. Procedure Note Jay Katz Jr., M.D. / Uzma Rasheed M.D. - 07/29/2016 EXAM: XR Lumbar Spine 2 or 3 views INDICATION: low back pain COMPARISON: None. FINDINGS: There are 5 lumbar-type verteb brandan which are normal in height and alignment without evidence of fracture or destructive lesions. There is vacuum degenerated dis c disease with degenerative facet change at L4-5 and L5-S1. Remainin g lumbar disc levels are relatively preserved except for minimal spurring at L3-4. Sacroiliac joints are unremarkable. There is a dege nerative facet disease at multiple levels in the lower thoracic sp ine. IMPRESSION: 1. No lumbosacral spine fracture. 2. Advanced degenerative disc and facet disease at L4-5 and L5-S1. Lynda Thacker(R)(CT), RJuan(R)(M) IMG DIAGNOSTIC IM AGING PROCEDURES DX Hips And Pelvis Left 1 View (08/31/2015 9:17 AM CDT) Anatomical Region Laterality Modality Lower Extremity, Pelvis, Hip Left Radiographi c Imaging Specimen (Source) Anatomical Collection Method Collection Time Re ceived Time Location / / Volume Laterality 08/31/2015 9:17 AM CDT Addenda Addendum by Uzma Wolfe M.D. o n 08/31/2015 9:17 AM CDT RAD^^^MA XR Pelvis Hip Left 1 view 08/31/2015 09:17:25 Narrative 08/31/2015 9:30 AM CDT Exam: ?? XR Pelvis Hip Left 1 view Clinical history: L hip pain Comparison: None Findings: Visualized bones of the pelvis are grossly intact and well aligned. There is no significant degener ative change. There is no evidence for acute injury. Impression: No evidence for acute injury . Procedure Note Otf Beaulieu M.D. / Provider, Kash pace M.D. - 07/29/2016 Exam: XR Pelvis Hip Left 1 view Clinical history: L hip pain Comparison: None Findings: Visualized bones of the pelvis are grossly intact and well aligned. There is no significant degener ative change. There is no evidence for acute injury. Impression: No evidence for acute injury . Lynda Thacker(R)(CT), RJuan(R)(M) IMG DIAGNOSTIC IM AGING PROCEDURES documented in this encounter Visit Diagnoses Not on filedocumented in this encounter
--- OUTSIDE RECORDS SUMMARY | 2021-12-28 10:01 | XMS_ITS | Encounter Summary ---
:1945 Author Organization [facility] Address [address] [place] [address] Care Team Providers Name Role Phone Unavailable Primary Care Provider Unavailable Encounter Details Date Type Department Care Team Description 02/16/2016 Hospital Encounter HX [facility] JENNIFERJessica Riojas, MAGAZINE WORKER, C.N.P. [address] [place] [phone] (Wo rk) Social History Tobacco Use Types [...] 1 to 4 times per year 11/2019 rastafarian services? 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 documented as of this encounter Last Filed Vital Signs Vital Sign Reading Time Taken Comments Blood Pressure 138/78 02/16/2016 3:19 PM LABORATORY INSPECTOR Pulse 82 02/16/2016 3:19 PM LABORATORY INSPECTOR Temperature - - Respiratory Rate - - Oxygen Saturation - - Inhaled Oxygen Concentration - - Weight 145 kg (318 lb 12.6 oz) 02/16/2016 3:19 PM LABORATORY INSPECTOR Height 176 cm (5' 9.29) 02/16/2016 3:19 PM LABORATORY INSPECTOR Body Mass Index 46.68 02/16/2016 3:19 PM LABORATORY INSPECTOR documented in this encounter Medications at Time [...] mg capsule Take 1 tablet by 0 07/16/1901/09/2018 mouth daily. B.ANI/L.ACI/L.DEYVI/L.PLAN/ Take 1 capsule by 0 04/11/2018 L.COURTNEY (PROBIOTIC FORMULA mouth daily. ORAL) buPROPion (for_WELLBUTRIN Take 1 tablet by 0 01/2603/10/2017 SR) 150 mg 12 hr tablet mouth 2 (two) times a day. losartan-hydroCHLOROthiaz Take 1 tablet by 0 01/2603/21/2017 black (for_HYZAAR) 100-25 mouth daily. mg per tablet omeprazole (for_PriLOSEC) Take 1 capsule by 0 03/21/2017 20 mg capsule mouth daily. pravastatin Take 1 tablet by 0 02/16/2016 018 (for_PRAVACHOL) 80 mg mouth at bedtime. tablet terazosin (for_HYTRIN) 1 Take 1 capsule by 0 01/2603/10/2017 mg capsule mouth at bedtime. documented as of this encounter Progress Notes Yolanda Colón, AMBER, C.N.P. - 02/16/2016 3:11 PM CST [id number] CHIEF COMPLAINT/REASON FOR VISIT 1. Medhat is here. 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 2. 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 HISTORY OF PRESENT ILLNESS 1. Medhat is a 70-year-old male, who has had well-controlled hypertension. He recently had DOT physical and it was elevated, and he is requiring paperwork finding that his blood pressure is normal. He is due for some medication refill. He is due for his cholesterol to be checked in 3 months. All of hisother routine blood work could be done today. 2. He has noted a small soft tissue mass on the back of his neck for several years. It originally started as the size of his thumb and has greatly increased in size over the last 2 years. It does not cause him any pain. He has not noticed any other lumps. PAST MEDICAL/SURGICAL HISTORY MEDICAL: Hyperlipidemia. Hypertension. Morbid obesity. Psoriasis. Anxiety. SURGICAL: Hernia repair. 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 No regular exercise. CURRENT MEDICATIONS Amlodipine 5 mg. Aspirin 81 mg. Bupropion 150 XR daily. Centrum Silver. Flonase. Hytrin 1 mg daily. Losartan/hydrochlorothiazide 100/25 daily. Naprosyn 500 as needed for arthritic pain. Flomot 5. Omeprazole 20. Osteo Bi-Flex. Pravastatin 80 at bedtime. Probiotic. Viagra as needed. ALLERGIES Sulfa. Tylenol. SYSTEMS REVIEW CHEST: No shortness of breath, cough, or chest pain. GI: No nausea, vomiting, or diarrhea. No pedal edema. MUSCULOSKELETAL: Negative. VITAL SIGNS Temp 36.8, heart rate 82, blood pressure 138/78, O2 sat 94%. Height 176, weight 144.6, BMI 46.68. ALIYAH-7 score is 0. PHYSICAL EXAMINATION GENERAL: A 70-year-old, pleasant male, who is in no apparent distress today. SKIN: Clear, pink, and warm. CHEST: Lungs clear to auscultation. HEART: Rate, rhythm is regular. No pedal edema. MUSCULOSKELETAL: He does have a large soft tissue mass that is on the posterior neck, nontender to palpation, approximately 4-1/2 to 5 inches in diameter. It is fairly firm with well rounded borders, not freely movable. IMPRESSION/REPORT/PLAN 1. Benign essential hypertension, stable. 2. Soft tissue mass posterior neck. PLAN: 1. I did have Dr. Carcamo come in and examine Medhat's neck as well today. We did recommend a CT with contrast of the soft tissue mass. He would like to do this after the first of the year, so that wasscheduled for him today. We discussed removal of the mass given its increasing size. The patient would like to wait for the results of the CT scan first. No consult to General Surgery was made today. 2. I did go ahead and refill his medications listed above for 1 year. He will return in 3 months forCBC, comprehensive metabolic panel, and lipid profile. A note for his DOT was provided for normal blood pressure today, as well as the patient on antianxiety medication and stable. He is in agreement with this treatment plan and will follow up as directed. Yolanda Colón APRN, C.N.P./pos Electronically Signed By: YOLANDA COLÓN MARKETING AND COMMUNICATIONS OFFICER On: 02/17/2016 11:51 AM Source: [facility] MHSDOLBEYNONRADSYS Document Id: [id number] RATORY INSPECTOR documented in this encounter Miscellaneous Notes Miscellaneous - Yolanda Colón APRN, C.N.P. - 02/16/2016 4:47 PM LABORATORY INSPECTOR Ambulatory Patient Summary [place] [address] [place], [place] [phone] Visit Information Name: FRANSICO MACDONALD LULUNEREIDA [facility] Number: [id number] Current Date: 02/16/2016 16:47:15 Physicians Attending Provider: YOLANDA COLÓN NP Primary Care Provider: YOLANDA COLÓN NP LIZETLOFRANSICO MICAELA has been given the following list [...] tablet) 1 Tablet(s), Oral, once a day Routed to [address] [address] aspirin (aspirin 81 mg oral tablet) 1 Tablet(s), Oral, once a day bifidobacterium-lactobacillus (Probiotic Formula) 1 cap, Oral, once a day buPROPion (buPROPion SR 150 mg/12 hour oral tablet, sustained release) 1 Tablet(s), Oral, two times a day Routed to [address] [address] fluticasone nasal (fluticasone 50 mcg/inh nasal spray) 1 [place](s), Nasal, once a day glucosamine-chondroitin (Osteo Bi-Flex) 1 tablets, Oral, two times a day losartan-hydroCHLOROthiazide (losartan-hydroCHLOROthiazide 100mg-25mg oral tablet) 1 Tablet(s), Oral, once a day (Hyzaar) This is a CHANGE Routed to [address] [address] multivitamin with minerals (Centrum Silver Men's oral tablet) 1 Tablet(s), Oral, once a day naproxen (Naprosyn 500 mg oral tablet) 1 Tablet(s), Oral, two times a day as needed for pain omega-3 polyunsaturated fatty acids (Flomot-500 oral capsule) 2 Tablet(s), Oral, once a day omeprazole (omeprazole 20 mg oral delayed release capsule) 1 cap, Oral, once a day Routed to [address] [address] pravastatin (pravastatin 80 mg oral tablet) 1 Tablet(s), Oral, once a day (at bedtime) Routed to [address] [place] [address] *sildenafil (sildenafil 25 mg oral tablet) 1 tablet one hour prior to sexual activity, Oral, once a day as needed for Erectile dysfunction terazosin (Hytrin 1 mg oral capsule) 1 cap, Oral, once a day (at bedtime) Routed to [address] [address] * You have let us know that you are not taking this medication as listed. Please talk with your primary care provider or the health care provider who prescribed the medication as soon as possible. Stop Taking the Following Medications: Medication list as of 02-16-16 16:47 Attention: If you have any medications at [...] of emergency. Electronically Signed By: YOLANDA COLÓN MARKETING AND COMMUNICATIONS OFFICER Signed On:16-FEB-2016 15:59:22 Your Allergies & Intolerances Substance Reaction Symptoms [...] if you dont have one. Go to [email or web address] and click on Create Your Account. Then, follow the directions to complete the online form. Youll be asked for your [facility] number which you can find at the top of this document. Your Goals/Additional instructions: Source: [facility] POWERCHART Document Id: [id number] RATORY INSPECTOR Miscellaneous - Yolanda Colón APRN, C.N.P. - 02/16/2016 4:47 PM LABORATORY INSPECTOR Ambulatory Discharge Medication List [address] [id number] Visit Information Name: FRANSICO MACDONALD [facility] Number: [id number] Current Date: 02/16/2016 16:47:14 Attending Provider: YOLANDA COLÓN MARKETING AND COMMUNICATIONS OFFICER Primary Care Provider: YOLANDA COLÓN MARKETING AND COMMUNICATIONS OFFICER FRANSICO MACDONALD has been given the following [...] tablet) 1 Tablet(s), Oral, once a day Routed to [address] [address] aspirin (aspirin 81 mg oral tablet) 1 Tablet(s), Oral, once a day bifidobacterium-lactobacillus (Probiotic Formula) 1 cap, Oral, once a day buPROPion (buPROPion SR 150 mg/12 hour oral tablet, sustained release) 1 Tablet(s), Oral, two times a day Routed to [address] [address] fluticasone nasal (fluticasone 50 mcg/inh nasal spray) 1 [place](s), Nasal, once a day glucosamine-chondroitin (Osteo Bi-Flex) 1 tablets, Oral, two times a day losartan-hydroCHLOROthiazide (losartan-hydroCHLOROthiazide 100mg-25mg oral tablet) 1 Tablet(s), Oral, once a day (Hyzaar) This is a CHANGE Routed to [address] [address] multivitamin with minerals (Centrum Silver Men's oral tablet) 1 Tablet(s), Oral, once a day naproxen (Naprosyn 500 mg oral tablet) 1 Tablet(s), Oral, two times a day as needed for pain omega-3 polyunsaturated fatty acids (Flomot-500 oral capsule) 2 Tablet(s), Oral, once a day omeprazole (omeprazole 20 mg oral delayed release capsule) 1 cap, Oral, once a day Routed to [address] [address] pravastatin (pravastatin 80 mg oral tablet) 1 Tablet(s), Oral, once a day (at bedtime) Routed to [address] [address] *sildenafil (sildenafil 25 mg oral tablet) 1 tablet one hour prior to sexual activity, Oral, once a day as needed for Erectile dysfunction terazosin (Hytrin 1 mg oral capsule) 1 cap, Oral, once a day (at bedtime) Routed to [address] [address] * You have let us know that you are not taking this medication as listed. Please talk with your primary care provider or the health care provider who prescribed the medication as soon as possible. Stop Taking the Following Medications: Medication list as of 02-16-16 16:47 Attention: If you have any medications at [...] of emergency. Electronically Signed By: YOLANDA COLÓN MARKETING AND COMMUNICATIONS OFFICER Signed On:16-FEB-2016 15:59:22 Additional Information: Source: [facility] POWERCHART Document Id: [id number] RATORY INSPECTOR Miscellaneous - Yolanda Colón APRN, C.N.P. - 02/16/2016 3:35 PM LABORATORY INSPECTOR Custom Result Letter February 16, 2016 [place] [address] [place] [id number] Dear FRANSICO MACDONALD, Patient examined today on 02/16/2016. Blood pressure in good control at 138/78 Sincerely, YOLANDA COLÓN [address] [place] [id number] Electronic Signature Electronically Signed By: YOLANDA COLÓN NP On: February 16, 2016 This document has images extracted. Source: [email or web address] Document Id: [id number] Electronically signed by Cornelia [facility] [employer] [id number] at 08/21/2016 12:01 AM CDT [place] - Katy Shannon, L.P.N. - 02/16/2016 3:24 PM CST ALIYAH-7 ALIYAH-7 Entered On: 02/16/2016 15:24 LABORATORY INSPECTOR Performed On: 02/16/2016 15:24 LABORATORY INSPECTOR by KATY SHANNON LPN GAD7 GAD7 Feeling nervous : Not at all GAD7 Not able to control worry : Not at all GAD7 Worrying too much : Not at all GAD7 Trouble relaxing : Not at all GAD7 Being so restless : Not at all GAD7 Becoming easily annoyed : Not at all GAD7 Feeling afraid : Not at all GAD7 Total Score : 0 KATY SHANNON LPN - 02/16/2016 15:24 LABORATORY INSPECTOR Source: [email or web address] Document Id: [id number] LABORATORY INSPECTOR!10 RATORY INSPECTOR Kavyacellbolivar - Katy Shannon L.P.N. - 02/16/2016 3:19 PM CST Adult Legislative Correspondent Intake/History Adult Legislative Correspondent Intake/History Entered On: 02/16/2016 15:22 LABORATORY INSPECTOR Performed On: 02/16/2016 15:19 LABORATORY INSPECTOR by KATY SHANNON LPN Intake Chief Complaint : elevated bp at dot Temperature Core : 36.8 DegC(Converted to: 98.2 DegF) Peripheral Pulse Rate : 82 /min Systolic Blood Pressure : 138 mmHg Diastolic Blood Pressure : 78 mmHg NIBP Mean : 98 mmHg SpO2 : 94 % Height : 176 cm(Converted to: 5 ft 9 inch(es), 69 inch(es)) Actual Weight : 144.6 kg(Converted to: 318 lb 13 oz) Dosing Weight Clinic : 144.6 kg Clinic BSA : 2.66 Body Mass Index : 46.68 kg/m2 KATY SHANNON LPN - 02/16/2016 15:19 LABORATORY INSPECTOR General Info Information Given By : Patient Languages : Bahamian Is Patient Female and 13-50 no hysterectomy : No KATY SHANNON LPN - 02/16/2016 15:19 LABORATORY INSPECTOR Subjective Pain Symptoms : No KATY SHANNON LPN - 02/16/2016 15:19 LABORATORY INSPECTOR Dependent Habits Exposure to Tobacco Smoke : Other: former Smoking Status : Former smoker Tobacco 2A : Yes Tobacco Use/Currently Using : No Tobacco Use/Last 30 Days : No Tobacco Use/Last 12 months : No Tobacco Last Use/Year : 1995 Alcohol Use : No KATY SHANNON LPN - 02/16/2016 15:19 LABORATORY INSPECTOR Caffeine Use Grid Caffeine Use : None KATY SHANNON LPN - 02/16/2016 15:19 LABORATORY INSPECTOR Recreational Drug Use Grid Drug Use : None KATY SHANNON LPN - 02/16/2016 15:19 LABORATORY INSPECTOR Source: [facility] POWERCHART Document Id: [id number] LABORATORY INSPECTOR!35 RATORY INSPECTOR Miscellaneous - Katy Shannon, L.P.N. - 02/16/2016 3:18 PM CST Health Assessment Health Assessment Entered On: 02/16/2016 15:18 LABORATORY INSPECTOR Performed On: 02/16/2016 15:18 LABORATORY INSPECTOR by KATY SHANNON LPN Health Assessment Complete Health Assessment Complete or Modified : Annual Health Assessment Annual Health Assessment Completed : Yes KATY SHANNON LPN - 02/16/2016 15:18 LABORATORY INSPECTOR Nutrition Nutrition Risk Factors by History Adult : None KAYT SHANNON LPN - 02/16/2016 15:18 LABORATORY INSPECTOR Functional Current Daily Living Assistance : None KATY SHANNON Suresh [facility] - 02/16/2016 15:18 LABORATORY INSPECTOR Dependent Habits Exposure to Tobacco Smoke : Other: former Smoking Status : Former smoker Tobacco 2A : Yes Tobacco Use/Currently Using : No Tobacco Use/Last 30 Days : No Tobacco Use/Last 12 months : No Tobacco Last Use/Year : 1995 Alcohol Use : No KATY SHANNON Suresh [facility] - 02/16/2016 15:18 LABORATORY INSPECTOR Caffeine Use Grid Caffeine Use : None RICKEYKATY Mota [facility] 02/16/2016 15:18 LABORATORY INSPECTOR Recreational Drug Use Grid Drug Use : None KATY SHANNON Suresh [facility] 02/16/2016 15:18 LABORATORY INSPECTOR Psychosocial Domestic Abuse Concerns : None Behavioral Health Screen/Safety Assmt : No Rastafarian Preference : Jew: Christianity LOARTURO KATY D [facility] - 02/16/2016 15:18 LABORATORY INSPECTOR Advance Directive Advanced Directives : No Advance Directive Additional Information : Yes RICKEYNakul KATY D [facility] 02/16/2016 15:18 LABORATORY INSPECTOR Educ Needs Learning Style Preference Adult Grid Patient : None Family : None RICKEYNakulKATY Suresh [facility] - 02/16/2016 15:18 LABORATORY INSPECTOR Source: [facility] POWERCHART Document Id: [id number] LABORATORY INSPECTOR!34 RATORY INSPECTOR documented in this encounter Plan of Treatment Upcoming Encounters Date Type Specialty Care Team Description 02/11/2022 Appointment Laboratory Medicine Neli Hearn M.D. [address] [place] [phone] (Stephon caldera) 02/14/2022 Office Visit Family Medicine Lilli Hearn M.D. [address] [place] [address] (Stephon caldera) documented as of this encounter Visit Diagnoses Not on filedocumented in this encounter
--- OUTSIDE RECORDS SUMMARY | 2021-12-28 10:01 | XMS_ITS | Encounter Summary ---
:1945 Author Organization [facility] Address [address] [place] [address] Care Team Providers Name Role Phone Unavailable Primary Care Provider Unavailable Encounter Details Date Type Department Care Team Description 08/15/2016 Hospital Encounter HX [facility] JENNIFERWendy Riojas, CUSTOMS VERIFIER, C.N.P. [address] [place] [phone] (Wo rk) Social History Tobacco Use Types [...] 1 to 4 times per year 11/2019 rastafari services? 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 - 08/15/2016 9:28 AM CDT CHIEF COMPLAINT/REASON FOR VISIT Complains of low back pain with radiation into right hip and groin. HISTORY OF PRESENT ILLNESS 70-year-old male who complains of recurrent low back pain. He brings his copies of his old prescriptions that he has been given for this in the past: Diazepam, prednisone 50 x 5 days, and hydrocodone 5-325 for pain. 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 He is hoping to avoid any missed days at work and so came in immediately when his pain developed this weekend. He describes the pain as a sharp stinging pain that starts in the mid to low back at approximately L2-L3 vertebrae. The pain radiates around the right hip into the groin and to the top of the thigh. He describes it as st inging and burning but denies numbness, lower extremity heaviness, decreased strength, or problems with bowel or bladder. Standing, bending, and twisting are his worst positions that aggravate his pain. He has no difficulty sleeping at night, and states he is able to sit without difficulty. He is only able to stand for 10minutes at a time without having to change positions due to the increase in pain and radiation. He is currently not using anything for his discomfort. He has had prior surgery to the lumbar vertebrae-birdie laminectomy L4-L5. Denies recent fever or chills,no recent falls or injuries, no personal historyof cancer. 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 PAST SURGICAL HISTORY CT angiography of coronary arteries: 06/13/13 X-ray of abdomen: 12/17/09 Hernia repair MRI lumbar spine 06/01/2016 FAMILY HISTORY Mother: [place] - Breast cancer; Dementia Father: Coronary artery disease Brother: [place] - Cancer of prostate SOCIAL HISTORY Tobacco: Smoking Status: Former smoker Exposure: Other: former Current Use: No Use Last 12 Months: No Advised To Quit: No Results Found MEDICATIONS amLODIPine: 5 mg,1 tab(s),PO,Daily aspirin: 1 tab(s),PO,Daily bifidobacterium-lactobacillus: 1 cap(s),PO,Daily buPROPion: 150 mg,1 tab(s),PO,2xDay diazePAM: 5 mg,1 tab(s),PO,2xDay,PRN (Anxiety) fluticasone nasal: 1 spray(s),Nasal,Daily glucosamine-chondroitin: 1 tablets,PO,2xDay losartan-hydroCHLOROthiazide: 1 tab(s),PO,Daily multivitamin with minerals: 1 tab(s),PO,Daily nabumetone: 500 mg,1 tab(s),PO,2xDay,PRN (Pain) omega-3 polyunsaturated fatty acids: 2 tab(s),PO,Daily omeprazole: 20 mg,1 cap(s),PO,Daily pravastatin: 80 mg,1 tab(s),PO,Bedtime predniSONE: 50 mg,1 tab(s),PO,Daily terazosin: 1 mg,1 cap(s),PO,Bedtime ALLERGIES sulfa drugs (irritating; feels jumpy) Tylenol REVIEW OF SYSTEMS a complete review of systems was performed, and all systems are negative except as listed under the HPI. VITAL SIGNS Temperature Core: 37.0 Peripheral Pulse Rate: 70 Respiratory Rate: 24 High SpO2: 95 BLOOD PRESSURE Systolic Blood Pressure: 148 High Diastolic Blood Pressure: 78 MEASUREMENTS Height: 176 Actual Weight: 148.8 Body Mass Index: 48.04 PHYSICAL EXAMINATION 70-year-old male is here today in no apparent distress. He is sitting comfortably but does have somedifficulty getting up from the chair and changing positions on the table. Chest: Lungs are clear to auscultation bilaterally, heart rate and rhythm regular. MS: Spine is noted to have lordosis, withoutbony tenderness. Mild to moderate muscular tenderness is noted adjacent to the L4 vertebrae, I am unable to elicit any pain symptoms on exam from palpation. Range of motion is normal with lateral flexion and extension. Negative straight leg raise bilaterally. DTRs are decreased on the right lower extremity. Strength is appropriate and equal bilaterally. Sensation is appropriate bilaterally without any focal motor deficits noted. GI abdomen is soft obese nontender. DIAGNOSTICS reviewed recent MRI from 06/01/2016. l ASSESSMENT/PLAN 1. 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 Morbid obesity Stretching and strengthening exercises were discussed and demonstrated today, encouraged to perform these 3 times a day. Physical therapy as well as further consultation to physiatry was recommended, patient declined. The importance of continue with his weight loss loss efforts was also discussed, with eating a healthy nutritional diet, portion control, and regular exercise. Medications: Prednisone 50 mg, 1 tab daily x5 days. Diazepam 5 mg twice a day as needed for muscle relaxer- advised no driving with this medication. 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 He can use qjnp-[id number]-swrdpno analgesics for his discomfort. Recommended ice and heat alternating to his low back 3-4 times per day, as well as icy Hot or Biofreeze to the area. Return appointment recommended in 1 week if symptoms have not shown signs of improvement and would recommend further physiatry consultation at that time. Discussed any worsening warning signs and advised he return here or to the emergency room if any of those signs should develop. Electronically Signed By: YOLANDA COLÓN [employer] On: 08/15/2016 11:14 AM Modified by and Electronically Signed by: YOLANDA COLÓN [employer] On: 08/15/2016 11:14 AM Source: [facility] POWERCHART Document Id: [id number] documented in this encounter Miscellaneous Notes Miscellaneous - Yolanda Colón APRN, C.N.P. - 08/15/2016 11:15 AM CDT Ambulatory Patient Summary [place] [address] [place], [place] [phone] Visit Information Name: FRANSICO MACDONALD [facility] Number: [phone] Current Date: 08/15/2016 11:15:46 Physicians Attending Provider: YOLANDA COLÓN NP Primary Care Provider: YOLANDA COLÓN NP FRANSICO MACDONALD has been given the following [...] 1 Tablet(s), Oral, two times a day diazePAM (Valium 5 mg oral tablet) 1 Tablet(s), Oral, two times a day as needed for Anxiety New Routed to [facility] fluticasone nasal (fluticasone 50 mcg/inh nasal spray) 1 [place]inthrop(s), Nasal, once a day glucosamine-chondroitin (Osteo Bi-Flex) 1 tablets, Oral, two times a day losartan-hydroCHLOROthiazide (losartan-hydroCHLOROthiazide 100mg-25mg oral tablet) 1 Tablet(s), Oral, once a day (Hyzaar) multivitamin with minerals (Centrum Silver Men's oral tablet) 1 Tablet(s), Oral, once a day nabumetone (Relafen 500 mg oral tablet) 1 Tablet(s), Oral, two times a day as needed for Pain omega-3 polyunsaturated fatty acids (Albion-500 oral capsule) 2 Tablet(s), Oral, once a day omeprazole (omeprazole 20 mg oral delayed release capsule) 1 cap, Oral, once a day pravastatin (pravastatin 80 mg oral tablet) 1 Tablet(s), Oral, once a day (at bedtime) predniSONE (predniSONE 50 mg oral tablet) 1 Tablet(s), Oral, once a day New Routed to [facility] [address] [place] [id number] terazosin (Hytrin 1 mg oral capsule) 1 cap, Oral, once a day (at bedtime) Stop Taking the Following Medications: Medication list as of 08-15-16 11:15 Attention: If you have any medications at [...] of emergency. Electronically Signed By: YOLANDA COLÓN [employer] Signed On:15-AUG-2016 08:46:45 Your Allergies & Intolerances Substance Reaction Symptoms [...] if you dont have one. Go to [email or web address] and click on Create Your Account. Then, follow the directions to complete the online form. Youll be asked for your [facility] number which you can find at the top of this document. Your Goals/Additional instructions: Source: [facility] POWERCHART Document Id: [id number] Miscellaneous - Yolanda Colón APRN, C.N.P. - 08/15/2016 11:15 AM CDT Ambulatory Discharge Medication List [address], [place] [phone] Visit Information Name: FRANSICO MACDONADL [facility] Number: [phone] Current Date: 08/15/2016 11:15:45 Attending Provider: YOLANDA COLÓN NP Primary Care Provider: YOLANDA COLÓN NP FRANSICO MACDONALD has been given the following [...] 1 Tablet(s), Oral, two times a day diazePAM (Valium 5 mg oral tablet) 1 Tablet(s), Oral, two times a day as needed for Anxiety New Routed to [facility] fluticasone nasal (fluticasone 50 mcg/inh nasal spray) 1 [place]inthrop(s), Nasal, once a day glucosamine-chondroitin (Osteo Bi-Flex) 1 tablets, Oral, two times a day losartan-hydroCHLOROthiazide (losartan-hydroCHLOROthiazide 100mg-25mg oral tablet) 1 Tablet(s), Oral, once a day (Hyzaar) multivitamin with minerals (Centrum Silver Men's oral tablet) 1 Tablet(s), Oral, once a day nabumetone (Relafen 500 mg oral tablet) 1 Tablet(s), Oral, two times a day as needed for Pain omega-3 polyunsaturated fatty acids (Albion-500 oral capsule) 2 Tablet(s), Oral, once a day omeprazole (omeprazole 20 mg oral delayed release capsule) 1 cap, Oral, once a day pravastatin (pravastatin 80 mg oral tablet) 1 Tablet(s), Oral, once a day (at bedtime) predniSONE (predniSONE 50 mg oral tablet) 1 Tablet(s), Oral, once a day New Routed to [address] [id number] terazosin (Hytrin 1 mg oral capsule) 1 cap, Oral, once a day (at bedtime) Stop Taking the Following Medications: Medication list as of 08-15-16 11:15 Attention: If you have any medications at [...] of emergency. Electronically Signed By: YOLANDA COLÓN [employer] Signed On:15-AUG-2016 08:46:45 Additional Information: Source: [facility] Job36 Document Id: [id number] Candido - Amaury Mann, L.P.N. - 08/15/2016 8:32 AM CDT Ambulatory Vitals Height Weight Ambulatory Vitals Height Weight Entered On: 08/15/2016 8:32 CDT Performed On: 08/15/2016 8:32 CDT by AMAURY MANN LPN Vitals/Ht/Wt Systolic Blood Pressure : 148 mmHg (HI) Diastolic Blood Pressure : 78 mmHg NIBP Mean : 101 mmHg BP Location : Left upper extremity Blood Pressure Cuff Size : Large Height : 176 cm(Converted to: 5 ft 9 inch(es), 69 inch(es)) AMAURY MANN LPN - 08/15/2016 8:32 CDT Source: [facility] Job36 Document Id: [id number] CDT!8 Candido - Amaury Mann L.P.N. 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 Radiates down right hip and leg. Denies loss of bowel or bladder function. Does not recall recent injury. Temperature Core : 37.0 DegC(Converted to: 98.6 DegF) Peripheral Pulse Rate : 70 /min Respiratory Rate : 24 /min (HI) Heart Rhythm : Regular Systolic Blood Pressure : 160 mmHg (HI) Diastolic Blood Pressure : 82 mmHg NIBP Mean : 108 mmHg BP Location : Left upper extremity Blood Pressure Cuff Size : Large SpO2 : 95 % Oxygen Therapy : Room air Height : 176 cm(Converted to: 5 ft 9 inch(es), 69 inch(es)) Actual Weight : 148.8 kg(Converted to: 328 lb 1 oz) Weight Source : Standing scale Dosing Weight Clinic : 148.8 kg Clinic BSA : 2.7 Body Mass Index : 48.04 kg/m2 AMAURY MANN LPN 08/15/2016 8:25 CDT General Info Information Given By : Patient Preferred Communication Mode : Verbal Languages : Korean Is Patient Female and 13-50 no hysterectomy : No AMAURY MANN LPN 08/15/2016 8:25 CDT Subjective Pain Symptoms : Yes AMAURY MANN LPN 08/15/2016 8:25 CDT Pain Scale Pain Scale Verbal 0-10 : Open AMAURY MANN LPN 08/15/2016 8:25 CDT Pain Pain Assessment Grid Pain 1 Location : Lower back Intensity : 5 AMAURY MANN LPN 08/15/2016 8:25 CDT Dependent Habits Exposure to Tobacco Smoke : Other: former Smoking Status : Former smoker Tobacco 2A : Yes Tobacco Use/Currently Using : No Tobacco Use/Last 30 Days : No Tobacco Use/Last 12 months : No Tobacco Last Use/Year : 1995 AMAURY MANN LPN 08/15/2016 8:25 CDT Caffeine Use Grid Caffeine Use : None AMAURY MANN LPN 08/15/2016 8:25 CDT Recreational Drug Use Grid Drug Use : None AMAURY MANN LPN 08/15/2016 8:25 CDT Source: [employer] POWERCHART Document Id: [id number] CDT!48 documented in this encounter Plan of Treatment Upcoming Encounters Date Type Specialty Care Team Description 02/11/2022 Appointment Laboratory Medicine Neli Hearn M.D. [address] [place] [phone] (Wo rk) 02/14/2022 Office Visit Family Medicine Lilli eHarn M.D. [address] [place] [phone] (Wo rk) documented as of this encounter Visit Diagnoses Not on filedocumented in this encounter
--- OUTSIDE RECORDS SUMMARY | 2021-12-28 10:01 | XMS_ITS | Encounter Summary ---
:1945 Author Organization [facility] Address [address] [place] [address] Care Team Providers Name Role Phone Yolanda Colón APRN, C.N.P. Primary Care Provider [phone] Reason for Visit Reason Comments Med Refill Encounter Details Date Type Department Care Team Description 03/10/2017 Refill Department of Family Medicine Yolanda Colón APRN, Med Refill in [facility] thony C.N.P. [address] [place], [place] [phone] [place] [phone] (Wo rk) Social History Tobacco Use Types [...] 1 to 4 times per year 11/2019 yarsanism services? 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 [address] [place] [phone] (Wo rk) 02/14/2022 Office Visit Family Medicine Lilli Hearn M.D. [address] [place] [phone] (Wo rk) documented as of this encounter Visit Diagnoses Not on filedocumented in this encounter Care Teams Park Attendant Relationship Specialty Start Date End Date Yolanda Colón APRN, C.N.P. PCP - General 09/08/16 documented as of this encounter
--- OUTSIDE RECORDS SUMMARY | 2021-12-28 10:01 | XMS_ITS | Encounter Summary ---
:[address] [facility] Address [address] [place] [address] Care Team Providers Name Role Phone Unavailable Primary Care Provider Unavailable Encounter Details Date Type Department Care Team Description 05/16/2016 [facility] Hem[facility] Manuel, CERTIFICATION ENGINEER, C.N.P. [address] [place] [phone] (Wo rk) Social History Tobacco Use Types [...] or relatives? How often do you attend jain or 1 to 4 times per year 11/2019 [employer] services? 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 documented as of this encounter Last Filed Vital Signs Vital Sign Reading Time Taken Comments Blood Pressure 138/76 05/16/2016 9:10 AM ROOMING HOUSE KEEPER Pulse 67 05/16/2016 9:10 AM ROOMING HOUSE KEEPER Temperature - - Respiratory Rate - - Oxygen Saturation - - Inhaled Oxygen Concentration - - Weight 148 kg (326 lb 8 oz) 05/16/2016 9:10 AM ROOMING HOUSE KEEPER Height 176 cm (5' 9.29) 05/16/2016 9:10 AM ROOMING HOUSE KEEPER Body Mass Index 47.81 05/16/2016 9:10 AM ROOMING HOUSE KEEPER documented in this encounter Medications at Time [...] documented as of this encounter Progress Notes Hemant Jauregui APRN, LindaNFamiliaPFamilia - 05/16/2016 10:22 AM CST Clinic Full Note CHIEF COMPLAINT/REASON FOR VISIT Right ear plugged, wanting checked and possibly irrigated HISTORY OF PRESENT ILLNESS Fransico Macdonald Is a 70-year-old male who presents to clinic for evaluation of right ear plugs. He feels that he is not able to hear as well. He is to wiggle his ear in the morning to be able to hear anything out of the right ear. He has noticed more wax in his ears. He has used his ears irrigated in the past but was 25 years ago . States he has no pain or purulent drainage . Patient is requesting a PSA to be drawn today. He states he is due for his prostate cancer screening. He has other labs drawn from his physical today as well. MEDICATIONS amLODIPine 5 mg oral tablet, 5 mg, 1 tab(s), PO, Daily, 3 refills aspirin 81 mg oral tablet, 1 tab(s), PO, Daily buPROPion SR 150 mg/12 hour oral tablet, sustained release, 150 mg, 1 tab(s), PO, 2xDay, 3 refills Centrum Silver Men's oral tablet, 1 tab(s), PO, Daily fluticasone 50 mcg/inh nasal spray, 1 spray(s), Nasal, Daily, 1 refills Hytrin 1 mg oral capsule, 1 mg, 1 cap(s), PO, Bedtime, 3 refills losartan-hydroCHLOROthiazide 100mg-25mg oral tablet, 1 tab(s), PO, Daily, 3 refills Naprosyn 500 mg oral tablet, 500 mg, 1 tab(s), PO, 2xDay, PRN, 3 refills Largo-500 oral capsule, 2 tab(s), PO, Daily omeprazole 20 mg oral delayed release capsule, 20 mg, 1 cap(s), PO, Daily, 3 refills Osteo Bi-Flex, 1 tablets, PO, 2xDay pravastatin 80 mg oral tablet, 80 mg, 1 tab(s), PO, Bedtime, 3 refills Probiotic Formula, 1 cap(s), PO, Daily sildenafil 25 mg oral tablet, 1 tablet one hour prior to sexual activity, PO, Daily, PRN, 6 refills ALLERGIES sulfa drugs (irritating; feels jumpy) Tylenol PAST MEDICAL HISTORY Chronic Hypercholesterolemia Hypertension Essential (401.9) Morbid Obesity Body Mass Index (BMI) >40 Adult Psoriasis NOS Historical Anxiety Hyperlipidemia Morbid Obesity PROCEDURES/SURGICAL HISTORY CT angiography of coronary arteries (06/13/2013), X-ray of abdomen (12/17/2009), Hernia repair. SOCIAL HISTORY Date Time: 05/16/2016 09:10 Tobacco: Smoking Status: Former smoker Exposure: Other: former Alcohol: Use: No Results Found Recreational Drugs: Use: None Type: No Results Found FAMILY HISTORY Mother:Positive: [place] - Breast cancer; Dementia Father:Positive: Coronary artery disease Brother:Positive: [place] - Cancer of prostate SYSTEMS REVIEW Denies fever, chills, cough, rhinorrhea, or sore throat. VITAL SIGNS T: 37.1 ??C (Core) HR: 67 BP: 138 / 76 SpO2: 96% HT: 176 cm WT: 148.1 kg BMI: 47.81 PHYSICAL EXAMINATION GENERAL: Well developed, well nourished, alert and cooperative, and appears to be in no acute distress. HEENT: Head: normocephalic Eyes: Conjunctiva non-injected. Vision grossly intact. Ears: Left external auditory canal clear. Right external auditory canal impacted with cerumen. Cerumen was completely removed and ear canal was clear. Tympanic membranes pearly hunter with bony landmarks present. Hearing grossly intact. Nose: No nasal discharge. Throat: Oral cavity and pharynx normal. LUNGS: Regular rate and rhythm of breathing. Non-labored. SKIN: Skin normal color, texture, and turgor with no lesions or eruptions. IMPRESSION/REPORT/PLAN 1. Cerumen Impacted R Patient's right ear was irrigated using warm water by nursing staff . A large amount of cerumen came out patient's symptoms resolved spontaneously . Patient tolerated the procedure well. Ordered: 2. Screening Exam Prostate Cancer PSA is ordered. Patient will be notified of results when available. Ordered: Prostate Specific Antigen-Screen All of patient's questions were answered. Patient is agreeable with plan outlined above. Patient will return to clinic if symptoms do not improve as expected or become worse. Electronically Signed By: HEMANT JAUREGUI CNP On: 05/16/2016 10:25 AM Source: [facility] POWERCHART Document Id: [id number] ING HOUSE KEEPER documented in this encounter Nursing Notes Katia Ellis L.P.N. - 05/16/2016 9:31 AM CST Nurse Only Documentation Nurse Only Documentation Entered On: 05/16/2016 9:31 ROOMING HOUSE KEEPER Performed On: 05/16/2016 9:31 ROOMING HOUSE KEEPER by KATIA ELLIS LPN Nurse Only Documentation Nurse Only Visit Documentation : Irrigated right ear with large amt. cerumen removed. Pt. tolerated well. KATIA ELLIS LPN - 05/16/2016 9:31 ROOMING HOUSE KEEPER Source: [facility] [employer] Document Id: [id number] ROOMING HOUSE KEEPER!3 ING HOUSE KEEPER documented in this encounter Miscellaneous Notes Miscellaneous - Hemant Jauregui APRN C.N.PFamilia - 05/16/2016 12:52 PM CST Results Notification Document Contains Addenda Addendum by KATIA ELLIS LPN on May 16, 2016 13:27:29 ROOMING HOUSE KEEPER Pt. notified. From: HEMANT JAUREGUI ACCOUNTANT HELPER To: KATIA ELLIS LPN; Sent: 05/16/2016 12:52:08 ROOMING HOUSE KEEPER Show up: 05/16/2016 12:52:00 ROOMING HOUSE KEEPER Subject: Results Notification Please let patient know PSA is normal. Thanks, Results: Date Result Name Value Ref Range 05/16/2016 08:55 PSA 2.1 ng/mL ( - <=4.5) Source: [facility] Document Id: [id number] Miscellaneous - Hemant Jauregui APRN C.N.PFamilia - 05/16/2016 10:22 AM CST Ambulatory Patient Summary [place] [address] [place], [place] [phone] Visit Information Name: FRANSICO MACDONALD [facility] Number: [id number] Current Date: 05/16/2016 10:22:50 Physicians Attending Provider: HEMANT JAUREGUI CNP Primary Care Provider: JULIO LOZADA BUILDING CONSTRUCTION FOREMAN FRANSICO MACDONALD has been given the following [...] nasal (fluticasone 50 mcg/inh nasal spray) 1 Pyote(s), Nasal, once a day glucosamine-chondroitin (Osteo Bi-Flex) 1 tablets, Oral, two times a day losartan-hydroCHLOROthiazide (losartan-hydroCHLOROthiazide 100mg-25mg oral tablet) 1 Tablet(s), Oral, once a day (Hyzaar) multivitamin with minerals (Centrum Silver Men's oral tablet) 1 Tablet(s), Oral, once a day naproxen (Naprosyn 500 mg oral tablet) 1 Tablet(s), Oral, two times a day as needed for pain omega-3 polyunsaturated fatty acids (Largo-500 oral capsule) 2 Tablet(s), Oral, once a [...] the Following Medications: Medication list as of 05-16-16 10:22 Attention: If you have any medications at home that are not on this list, DO NOT take them until youcontact your provider for clarification. Give a copy of your medication list to your primary care provider. Update your medication list any time medications or doses are changed and carry your medication list at all times in case of emergency. Electronically Signed By: HEMANT JAUREGUI CNP Signed On:16-MAY-2016 10:22:46 Your Allergies & Intolerances Substance Reaction Symptoms [...] if you dont have one. Go to [email or web address] and click on Create Your Account. Then, follow the directions to complete the online form. Youll be asked for your [facility] number which you can find at the top of this document. Your Goals/Additional instructions: Source: [facility] POWERCHART Document Id: [id number] ING HOUSE KEEPER Miscellaneous - Hemant Jauregui APRN, C.N.P. - 05/16/2016 10:22 AM CST Ambulatory Discharge Medication List [address] [phone] Visit Information Name: FRANSICO MACDONALD [facility] Number: [id number] Current Date: 05/16/2016 10:22:49 Attending Provider: HEMANT JAUREGUI CNP Primary Care Provider: JULIO LOZADA BUILDING CONSTRUCTION FOREMAN FRANSICO MACDONALD has been given the following [...] nasal (fluticasone 50 mcg/inh nasal spray) 1 Pyote(s), Nasal, once a day glucosamine-chondroitin (Osteo Bi-Flex) 1 tablets, Oral, two times a day losartan-hydroCHLOROthiazide (losartan-hydroCHLOROthiazide 100mg-25mg oral tablet) 1 Tablet(s), Oral, once a day (Hyzaar) multivitamin with minerals (Centrum Silver Men's oral tablet) 1 Tablet(s), Oral, once a day naproxen (Naprosyn 500 mg oral tablet) 1 Tablet(s), Oral, two times a day as needed for pain omega-3 polyunsaturated fatty acids (Largo-500 oral capsule) 2 Tablet(s), Oral, once a [...] the Following Medications: Medication list as of 05-16-16 10:22 Attention: If you have any medications at home that are not on this list, DO NOT take them until youcontact your provider for clarification. Give a copy of your medication list to your primary care provider. Update your medication list any time medications or doses are changed and carry your medication list at all times in case of emergency. Electronically Signed By: HEMANT JAUREGUI ACCOUNTANT HELPER Signed On:16-MAY-2016 10:22:46 Additional Information: Source: [facility] POWERCHART Document Id: [id number] ING HOUSE KEEPER Miscellaneous - Katia Ellis L.P.NFamilia - 05/16/2016 9:10 AM CST Adult News Production Supervisor Intake/History Adult News Production Supervisor Intake/History Entered On: 05/16/2016 9:12 ROOMING HOUSE KEEPER Performed On: 05/16/2016 9:10 ROOMING HOUSE KEEPER by KATIA ELLIS LPN Intake Chief Complaint : right ear plugged, wanting checked and possibly irrigated Temperature Core : 37.1 DegC(Converted to: 98.8 DegF) Peripheral Pulse Rate : 67 /min Systolic Blood Pressure : 138 mmHg Diastolic Blood Pressure : 76 mmHg NIBP Mean : 97 mmHg SpO2 : 96 % Oxygen Therapy : Room air Height : 176 cm(Converted to: 5 ft 9 inch(es), 69 inch(es)) Actual Weight : 148.1 kg(Converted to: 326 lb 8 oz) Dosing Weight Clinic : 148.1 kg Clinic BSA : 2.69 Body Mass Index : 47.81 kg/m2 KATIA ELLIS LPN - 05/16/2016 9:10 ROOMING HOUSE KEEPER General Info Information Given By : Patient Languages : Czech Is Patient Female and 13-50 no hysterectomy : No KATIA ELLIS LPN - 05/16/2016 9:10 ROOMING HOUSE KEEPER Subjective Pain Symptoms : No KATIA ELLIS LPN - 05/16/2016 9:10 ROOMING HOUSE KEEPER Dependent Habits Exposure to Tobacco Smoke : Other: former Smoking Status : Former smoker Tobacco 2A : Yes Tobacco Use/Currently Using : No Tobacco Use/Last 30 Days : No Tobacco Use/Last 12 months : No Tobacco Last Use/Year : 1995 KATIA ELLIS LPN - 05/16/2016 9:10 ROOMING HOUSE KEEPER Caffeine Use Grid Caffeine Use : None KATIA ELLIS LPN - 05/16/2016 9:10 ROOMING HOUSE KEEPER Recreational Drug Use Grid Drug Use : None KATIA ELLIS LPN - 05/16/2016 9:10 ROOMING HOUSE KEEPER Source: [facility] POWERCHART Document Id: [id number] ROOMING HOUSE KEEPER!35 ING HOUSE KEEPER documented in this encounter Plan of Treatment Upcoming Encounters Date Type Specialty Care Team Description 02/11/2022 Appointment Laboratory Medicine Neli Hearn M.D. [address] [place] [phone] (Wo rk) 02/14/2022 Office Visit Family Medicine Lilli Hearn M.D. [address] [place] [address] (Stephon caldera) documented as of this encounter Procedures Procedure Name Priority Date/Time Associated Diagnosis Comme nts PROSTATE-SPECIFIC Routine 05/16/2016 8:55 AM Resu lts for this AG (PSA) SCRN, S ROOMING HOUSE KEEPER procedure a re in the results section. documented in this encounter Results PSA (Prostate-Specific Antigen) Screen (05/16/2016 8:55 AM ROOMING HOUSE KEEPER) P athologist Signature Prostate-Specif 2.1 <=4.5 NGML POWERCHART ic Ag Comment: Biotin has been identified by the josue lobato as a potential interfering substance. Higher concentrations of biotin may be found in multivitamins, hair/nail supplements, and workout supplements. If the result does no match clinical observati ons, repeat testing after patient refrains from the use of supplements for at least 12 hours. This testing method is an electrochemilu minescence assay manufactured by [employer] and performed on the Morales system. Values obtained with different assay met hods or kits may be different and cannot be used interchangeably. Test results cannot be interpreted as ab solute evidence for the presence or absence of malignant disease. Specimen (Source) Anatomical Collection Method Collection Time Re ceived Time Location / / Volume Laterality Blood 05/16/2016 8:55 AM ROOMING HOUSE KEEPER Hemant Jauregui APRN C.N.P. LAB BLOOD ADD-ON Performing Organization Address City/State/ZIP Code Phon e Number POWERCHART documented in this encounter Visit Diagnoses Not on filedocumented in this encounter
--- OUTSIDE RECORDS SUMMARY | 2021-12-28 10:01 | XMS_ITS | Encounter Summary ---
:1945 Author Organization [facility] Address [address] [place] [address] Care Team Providers Name Role Phone Unavailable Primary Care Provider Unavailable Encounter Details Date Type Department Care Team Description 07/21/2016 Hospital Encounter HX [facility] Jamie Payan M.D. 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 - 07/21/2016 1:37 PM CDT [id number] CHIEF COMPLAINT/REASON FOR VISIT Annual sleep apnea update. HISTORY OF PRESENT ILLNESS Subjective: Medhat is a 70-year-old male, who was diagnosed with obstructive sleep apnea in 2010. Subsequent to that, he used CPAP therapy but abandoned it because he had lost weight and was not having problems with snoring or daytime hypersomnolence anymore. 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 We did proceed with a repeat sleep study and that did show continued moderately severe obstructive sleep apnea with AHI 41.6 events per hour. That sleep study took place on April 07, 2015. HisCPAP therapy was reinstituted initially with a auto CPAP and then eventually he ended up on a fixed pressure CPAP at 10 cm of water (it is a little unclear how he arrived at that pressure but that is what he is currently set at). He says that he is using his equipment nightly and throughout the night.He uses a full face mask with no skin irritation. Other than some psoriasis that develops along the sides of the bridge of the nose which he anticipates will resolve during the summer months. He did not feel that he needed any additional treatment for that. I did point out that there were some masksthat could be used that did not contact the upper part of the nose. He indicated that he a was triedon the Christy View mask but that moved too much and resulted in a poor seal and air leak. He is content with continuing to use the current traditional full face mask. With the current mask, he is not having any significant air leak problems. The CPAP therapy does not cause any nasal stuffiness. His machine is quiet. He does much better in terms of his daytime hypersomnolence with the CPAP in place and scores just 1 on the Chandler survey at today's visit. No inadvertent falling asleep with driving amotor vehicle or other potentially dangerous circumstances. Also no inadvertent falling asleep in various social circumstances. His has not noted any snoring, pauses in his breathing, snorts or gasps while he is using the treatment. Bedtime currently around 1 a.m. 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 He does not have problems with sleeponset or sleep maintenance insomnia to any significant extent. Although he does sometimes have the latter if something is bugging me. Up for the day at 6 a.m. feeling well rested. He will sometimes fall asleep late in the evening while watching television. No sleep talking, sleep walking, or acting out of dreams. No repetitive leg movements during sleep. No restless legs in the evening. No teeth grinding. 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 He says that the DOT certifying provider gets an update from his DME provider [facility] in [place]. The patient saw his primary provider, Yolanda Colón APRN, C.N.P. approximately 3 weeks ago for a medication update. He was having some increased back problems at that time. 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 He was advised that he should quit driving truck. He does get some right leg radicular symptoms. Currently nothing else planned for management of the back pain. He has not had any surgeries or hospitalizations over the past year. His cardiovascular review of systems is negative other than some lower leg and ankle swelling if he eats salty food. No cold intolerance. No polyuria or polydipsia. No nocturnal dyspepsia. Does get an occasional morning headache perhaps 2 or 3 times a year. He thinks that this is the result of stress. No episodes of transientfocal neurologic deficit. No emotional health or cognitive function problems. PHYSICAL EXAMINATION VITAL SIGNS: Weight 150.8 kg a 6.8 kg increase when compared to his visit with me in February of 2015. Height 176 cm. Body mass index 48.7 kg/m2. Blood pressure checked on the right arm with the large adult manual cuff 138/86, heart rate 72 and regular with no extrasystoles. Respirations even and unlabored at 20 per minute with oxygen saturation 95% on room air. GENERAL: This is an alert, oriented, pleasant, and appropriate, very overweight, middle-aged, male. He was not yawning or showing other signs of hypersomnolence during the visit. HEENT: Head is normocephalic with no evidence of previous trauma. No retro or micrognathia. PERRL, EOMI with no nystagmus. No scleral icterus. Palpebral conjunctivae with good color. Oral cavity adequately hydrated. No lesions noted. Complete edentulous. He is wearing an upper dental prosthesis. No tonsillar or soft palate hypertrophy. He has a long uvula. Grade 3 Mallampati index with tongue protruding in the midline. No facial droop. NECK: Supple with a circumference of 56.6 cm which is a 2.3 cm increase. No increased JVP. Negative HJR. No thyromegaly or thyroid nodules. No carotid bruits or decreased carotid pulsations. No submandibular, cervical, or supraclavicular lymphadenopathy or mass. LUNGS: Clear to percussion and auscultation with symmetric and satisfactory air exchange. Cardiac exam with no pathologic sounds or left ventricular lift. ABDOMEN: Has normal bowel sounds, is nondistended, is generally soft and nontender with no organomegaly or mass. No epigastric bruit or palpable abdominal aortic pulsation. No flank bruit on either side. No clubbing of the fingers. 1+ pretibial pitting edema with related venous stasis dermopathy. Radialand dorsalis pedis pulses are palpable bilaterally with the latter having asymmetry the right side more prominent than the left. No posterior tibialis pulses palpable. Multiple psoriasis patches noted as has been the case previously. Deep tendon reflexes are symmetric and within normal limits with theexception that I cannot elicit a right ankle reflex. Relaxation phase is normal. Chandler Sleepiness Scale score equals 1. [employer] data download June 20, 2016 to July 19, 2016, this confirms treatment with a CPAP at 10 cmof water. Of the available 30 days, the device was used on all 30 days and for greater than or equalto 4 hours on all 30 days for 100% compliance. Average usage was 6 hours and 19 minutes. Average apnea-hypopnea index during usage was 1.3 events per hour. Average 95% air leak was 26.3 L/minute. IMPRESSION/REPORT/PLAN FINAL IMPRESSION: Patient is doing well with a CPAP at 10 cm water with objective documentation of satisfactory compliance and efficacy. No new sleep medicine problems identified at this visit. He has had significant weight gain and is at risk for a worsening of his sleep apnea problem. PLAN: Continue with the current CPAP therapy. Advised weight reduction through diet and exercise measures. Apprised of recent developments in treatment of obstructive sleep apnea. No new treatments have emerged that I would recommend to supplement or replace his current treatment which remains the stand-alone gold standard. Discussed the Inspire implantable device for completeness. Providing no sleepmedicine issues arise that would call for earlier interaction, he should next be seen in 1 year for an annual sleep apnea update. He was made aware that I will have retired by then and that he would beseeing a new sleep medicine provider at that point. Chester Payan M.D./pos cc: Yolanda Colón APRN, C.NIsadora [facility] in [place] [id number] Electronically Signed By: CHESTER PAYAN MD On: 07/24/2016 07:51 AM Source: [facility] MHSDOLBEYNONRADSYS Document Id: [id number] documented in this encounter Miscellaneous Notes Miscellaneous - Chester Payan M.D. - 07/21/2016 2:35 PM CDT Ambulatory Patient Summary [place] [facility] [address] [id number] Visit Information Name: FRANSICO MACDONALD [facility] Number: [id number] Current Date: 07/21/2016 14:35:05 Physicians Attending Provider: CHESTER PAYAN MD Primary Care Provider: YOLANDA COLÓN ELECTRONIC BENCH TECHNICIAN FRANSICO MACDONALD has been given the following [...] nasal (fluticasone 50 mcg/inh nasal spray) 1 Gardiner(s), Nasal, once a day glucosamine-chondroitin (Osteo Bi-Flex) 1 tablets, Oral, two times a day losartan-hydroCHLOROthiazide (losartan-hydroCHLOROthiazide 100mg-25mg oral tablet) 1 Tablet(s), Oral, once a day (Hyzaar) multivitamin with minerals (Centrum Silver Men's oral tablet) 1 Tablet(s), Oral, once a day naproxen (Naprosyn 500 mg oral tablet) 1 Tablet(s), Oral, two times a day as needed for pain omega-3 polyunsaturated fatty acids (Cedar Hill-500 oral capsule) 2 Tablet(s), Oral, once a [...] the Following Medications: Medication list as of 07-21-16 14:35 Attention: If you have any medications at home that are not on this list, DO NOT take them until youcontact your provider for clarification. Give a copy of your medication list to your primary care provider. Update your medication list any time medications or doses are changed and carry your medication list at all times in case of emergency. Electronically Signed By: CHESTER PAYAN MD Signed On:21-JUL-2016 14:35:01 Your Allergies & Intolerances Substance Reaction Symptoms [...] if you dont have one. Go to [email or web address] and click on Create Your Account. Then, follow the directions to complete the online form. Youll be asked for your [facility] number which you can find at the top of this document. Your Goals/Additional instructions: Source: [facility] POWERCHART Document Id: [id number] Miscellaneous - Chester Payan M.D. - 07/21/2016 2:35 PM CDT Ambulatory Discharge Medication List [facility] [address] [id number] Visit Information Name: FRANSICO MACDONALD [facility] Number: [id number] Current Date: 07/21/2016 14:35:04 Attending Provider: CHESTER PAYAN MD Primary Care Provider: YOLANDA COLÓN ELECTRONIC BENCH TECHNICIAN FRANSICO MACDONALD has been given the following [...] nasal (fluticasone 50 mcg/inh nasal spray) 1 Gardiner(s), Nasal, once a day glucosamine-chondroitin (Osteo Bi-Flex) 1 tablets, Oral, two times a day losartan-hydroCHLOROthiazide (losartan-hydroCHLOROthiazide 100mg-25mg oral tablet) 1 Tablet(s), Oral, once a day (Hyzaar) multivitamin with minerals (Centrum Silver Men's oral tablet) 1 Tablet(s), Oral, once a day naproxen (Naprosyn 500 mg oral tablet) 1 Tablet(s), Oral, two times a day as needed for pain omega-3 polyunsaturated fatty acids (Cedar Hill-500 oral capsule) 2 Tablet(s), Oral, once a [...] the Following Medications: Medication list as of 07-21-16 14:35 Attention: If you have any medications at home that are not on this list, DO NOT take them until youcontact your provider for clarification. Give a copy of your medication list to your primary care provider. Update your medication list any time medications or doses are changed and carry your medication list at all times in case of emergency. Electronically Signed By: CHESTER PAYAN MD Signed On:21-JUL-2016 14:35:01 Additional Information: Source: [facility] POWERCHART Document Id: [id number] Miscellaneous - Yolanda Esposito L.PFamiliaN. - 07/21/2016 1:54 PM CDT Chandler Sleepiness Scale Chandler Sleepiness Scale Entered On: 07/21/2016 13:54 CDT Performed On: 07/21/2016 13:54 CDT by YOLANDA ESPOSITO LPN Chandler Sleepiness Scale Chandler sitting and reading : No chance of dozing Chandler watching TV : Slight chance of dozing Chandler sitting in public : No chance of dozing Chandler passenger in car : No chance of dozing Chandler in a car stopped in traffic : No chance of dozing Chandler Lying down to rest : No chance of dozing Chandler sitting and talking : No chance of dozing Chandler sitting quietly after lunch : No chance of dozing Chandler Total Score : 1 YOLANDA ESPOSITO LPN - 07/21/2016 13:54 CDT Source: [facility] [employer] Document Id: [id number] CDT!11 Miscellaneous - Yolanda Esposito L.P.N. 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 Intake/History Entered On: 07/21/2016 13:51 CDT Performed On: 07/21/2016 13:45 CDT by YOLANDA ESPOSITO LPN Intake Chief Complaint : annual FU DEVORA Temperature Core : 36.9 DegC(Converted to: 98.4 DegF) Peripheral Pulse Rate : 73 /min Respiratory Rate : 20 /min Systolic Blood Pressure : 158 mmHg (HI) Diastolic Blood Pressure : 86 mmHg NIBP Mean : 110 mmHg BP Location : Right upper extremity Blood Pressure Cuff Size : Large SpO2 : 95 % Oxygen Therapy : Room air Height : 176 cm(Converted to: 5 ft 9 inch(es), 69 inch(es)) Actual Weight : 150.8 kg(Converted to: 332 lb 7 oz) Weight Source : Standing scale Dosing Weight Clinic : 150.8 kg Clinic BSA : 2.72 Body Mass Index : 48.68 kg/m2 YOLANDA ESPOSITO LPN - 07/21/2016 13:45 CDT General Info Information Given By : Patient Preferred Communication Mode : Verbal Languages : Greenlandic Is Patient Female and 13-50 no hysterectomy : No YOLANDA ESPOSITO LPN - 07/21/2016 13:45 CDT Subjective Pain Symptoms : Yes YOLANDA ESPOSITO LPN - 07/21/2016 13:45 CDT Pain Scale Pain Scale Verbal 0-10 : Open YOLANDA ESPOSITO LPN - 07/21/2016 13:45 CDT Pain Pain Assessment Grid Pain 1 Location : Other: back pain YOLANDA ESPOSITO LPN - 07/21/2016 13:45 CDT Dependent Habits Exposure to Tobacco Smoke : Other: former Smoking Status : Former smoker Tobacco 2A : Yes Tobacco Use/Currently Using : No Tobacco Use/Last 30 Days : No Tobacco Use/Last 12 months : No Tobacco Last Use/Year : 1995 YOLANDA ESPOSITO LPN - 07/21/2016 13:45 CDT Caffeine Use Grid Caffeine Use : None YOLANDA ESPOSITO LPN - 07/21/2016 13:45 CDT Recreational Drug Use Grid Drug Use : None YOLANDA ESPOSITO LPN - 07/21/2016 13:45 CDT Source: [facility] [employer] Document Id: [id number] CDT!46 Miscellaneous - Yolanda Esposito L.P.N. - 07/14/2016 11:10 AM CDT DME [facility] in [place] From: YOLANDA ESPOSITO LPN Sent: 07/14/2016 11:10:20 CDT Subject: DME [employer] in [place] will call back to confirm we have access to [facility], has Dr Hoang appt 07-21-2016 [facility] [employer] [facility] [employer] Document Id: [id number] documented in this encounter Plan of Treatment Upcoming Encounters Date Type Specialty Care Team Description 02/11/2022 Appointment Laboratory Medicine Neli Hearn M.D. [address] [place] [phone] (Wo verenice) 02/14/2022 Office Visit Family Medicine Lilli Hearn M.D. [address] [place] [facility] [place] [phone] (Stephon caldera) documented as of this encounter Visit Diagnoses Not on filedocumented in this encounter
--- OUTSIDE RECORDS SUMMARY | 2021-12-28 10:01 | XMS_ITS | Encounter Summary ---
:1945 Author Organization [facility] Address [address] [place] [address] Care Team Providers Name Role Phone Yolanda Colón APRN, C.N.P. 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 [address] [place] [phone] (Wo rk) 02/14/2022 Office Visit Family Medicine Lilli Hearn M.D. [address] [place] [phone] (Wo rk) documented as of this encounter Visit Diagnoses Not on filedocumented in this encounter Care Teams Carbide Tool Die Maker Relationship Specialty Start Date End Date Yolanda Colón APRN, C.N.P. PCP - General 09/08/16 documented as of this encounter
--- OUTSIDE RECORDS SUMMARY | 2021-12-28 10:01 | XMS_ITS | Encounter Summary ---
:1945 Author Organization [facility] Address [address] [place] [address] Care Team Providers Name Role Phone Yolanda Colón APRN, C.N.P. 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 - 02/21/2017 4:34 PM CST Patient notified that the work note is completed and placed at the front end application developer to be picked up. R RUNNER Telephone Encounter - Alpa Nelson R.N. 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 - 02/20/2017 3:48 PM EDGER RUNNER Dulce Maria Yuen was printed in clinic on my computer. Please contact patient and let him know he can belt picker. R RUNNER Telephone Encounter - Alpa Nelson R.N. - 02/20/2017 3:10 PM CST Patient reports he is looking for a letter from Zaina for a note to return to work. Did apologize for any delay, however, Zaina would need to review this as she is the provider who had treated him for this specific concern. Advised that she returns to clinic tomorrow and can address at that time. Patient verbalized understanding. Also helped transfer to scheduling to make 1month follow-up appt as requested at last appt R RUNNER Telephone Encounter - Roseann Hendricks - 02/20/2017 1:49 PM CST Medhat called in about returning to work and would like a call back, he also called Monday. Thank you. R RUNNER Telephone Encounter - Nisha Lucia R.N. - 02/17/2017 9:27 AM CST Medhat called in inquiring about getting a note to return to work on Monday the , but would like to know if Adelina Colón would recommend it. Pt requesting a CB from Adelina prior to the letter being written to discuss. R RUNNER Telephone Encounter - Meri Bear - 02/17/2017 8:33 AM CST He has seen Adelina for the passed week and needs a return to work note and would like to speak with a nurse before it's written please call him back. R RUNNER documented in this encounter Plan of Treatment Upcoming Encounters Date Type Specialty Care Team Description 02/11/2022 Appointment Laboratory Medicine Neli Hearn M.D. [address] [place] [phone] (Wo verenice) 02/14/2022 Office Visit Family Medicine Lilli Hearn M.D. [address] [place] [phone] (Wo rk) documented as of this encounter Visit Diagnoses Not on filedocumented in this encounter Care Teams Inseam Trimming Machine Operator Relationship Specialty Start Date End Date Yolanda Colón, COMMUNICATION EQUIPMENT MECHANIC, C.N.P. PCP - General 09/08/16 documented as of this encounter
--- OUTSIDE RECORDS SUMMARY | 2021-12-28 10:01 | XMS_ITS | Encounter Summary ---
:1945 Author Organization [facility] Address [address] [place] [address] Care Team Providers Name Role Phone Unavailable Primary Care Provider Unavailable Encounter Details Date Type Department Care Team Description 05/16/2016 Hospital Encounter HX [facility] JENNIFER Yolanda Jett , AMBER, C.N.P. [address] [place], [place] [phone] (Wo rk) Social History Tobacco Use Types [...] 1 to 4 times per year 11/2019 mormon services? 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 documented as of this encounter Miscellaneous Notes Miscellaneous - Yolanda Colón APRN, C.N.P. - 05/18/2016 10:15 AM PROCESSOR SOLID PROPELLANT Results Notification Document Contains Addenda Addendum by TIFFANY ELLIS LPN on May 18, 2016 10:25:59 PROCESSOR SOLID PROPELLANT Pt. notified. From: YOLANDA COLÓN RESTAURANT BARTENDER To: TIFFANY ELLIS LPN; Sent: 05/18/2016 10:15:57 PROCESSOR SOLID PROPELLANT Show up: 05/18/2016 10:16:00 PROCESSOR SOLID PROPELLANT Subject: Results Notification Notify of results, cholesterol improved. Keep up the good work. Blood sugar was normal. Results: Date Result Name Ind Value Ref Range 05/16/2016 08:55 Sodium Lvl 139 mmol/L (135 - 145) 05/16/2016 08:55 Potassium Lvl 4.6 mmol/L (3.5 - 5.1) 05/16/2016 08:55 Chloride 99 mmol/L (98 - 107) 05/16/2016 08:55 CO2 29 mmol/L (22 - 29) 05/16/2016 08:55 AGAP 11 mmol/L (7 - 15) 05/16/2016 08:55 Glucose Lvl 134 mg/dL (70 - 140) 05/16/2016 08:55 Creatinine 1.1 mg/dL (0.8 - 1.3) 05/16/2016 08:55 EGFR (MDRD) >60.0 mL/min/SA (>=60.0 - ) 05/16/2016 08:55 EGFR (MDRD) >60.0 mL/min/SA (>=60.0 - ) 05/16/2016 08:55 BUN 18 mg/dL (6 - 24) 05/16/2016 08:55 Calcium Lvl 10.0 mg/dL (8.8 - 10.3) 05/16/2016 08:55 Cholesterol 196 mg/dL ( - <=199) 05/16/2016 08:55 Trig (H) 186 mg/dL ( - <=149) 05/16/2016 08:55 HDL 41 mg/dL (>=40 - ) 05/16/2016 08:55 LDL Calculated 118 mg/dL ( - <=129) 05/16/2016 08:55 Hgb 15.0 g/dL (13.5 - 17.5) 05/16/2016 08:55 Hct 45.6 % (38.8 - 50.0) 05/16/2016 08:55 WBC 6.9 x10(9)/L (3.5 - 10.5) 05/16/2016 08:55 RBC 5.05 x10(12)/L (4.32 - 5.72) 05/16/2016 08:55 MCV 90.3 fL (81.2 - 95.1) 05/16/2016 08:55 RDW 13.0 % (11.8 - 15.6) 05/16/2016 08:55 Platelet 252 x10(9)/L (150 - 450) 05/16/2016 08:55 Neutro Absolute 3.14 10(9)/L (1.70 - 7.00) 05/16/2016 08:55 Lymph Absolute (H) 3.07 x10(9)/L (0.90 - 2.90) 05/16/2016 08:55 [place] Absolute 0.55 x10(9)/L (0.30 - 0.90) 05/16/2016 08:55 Eos Absolute 0.12 x10(9)/L (0.05 - 0.50) 05/16/2016 08:55 Baso Absolute 0.03 x10(9)/L (0.00 - 0.30) 05/16/2016 08:55 Differential? Auto Source: [facility] POWERCHART Document Id: [id number] documented in this encounter Plan of Treatment Upcoming Encounters Date Type Specialty Care Team Description 02/11/2022 Appointment Laboratory Medicine Neli Hearn M.D. [address] [place] [phone] (Wo rk) 02/14/2022 Office Visit Family Medicine Lilli Hearn M.D. [address] [place] [phone] (Wo rk) documented as of this encounter Procedures Procedure Name Priority Date/Time Associated Diagnosis Comme nts LIPID PANEL, S Routine 05/16/2016 8:55 AM Results for this PROCESSOR SOLID PROPELLANT procedure are i n the results section. AUTOMATED Routine 05/16/2016 8:55 AM Results f or this DIFFERENTIAL, B PROCESSOR SOLID PROPELLANT procedure ar e in the results section. CBC WITH Routine 05/16/2016 8:55 AM Results f or this DIFFERENTIAL, B PROCESSOR SOLID PROPELLANT procedure ar e in the results section. BASIC METABOLIC Routine 05/16/2016 8:55 AM Result s for this PANEL, S/P PROCESSOR SOLID PROPELLANT procedure are i n the results section. documented in this encounter Results (ABNORMAL) Automated Differential (05/16/2016 8:55 AM PROCESSOR SOLID PROPELLANT) Patholo gist Method Time Signature Absolute 3.14 1.70 - POWERCHART Neutrophils 7.00 109L Lymphocytes 3.07 (H) 0.90 - POWERCHART 2.90 X109L Monocytes 0.55 0.30 - POWERCHART 0.90 X109L Eosinophils 0.12 0.05 - POWERCHART 0.50 X109L Absolute 0.03 0.00 - POWERCHART Basophil 0.30 X109L Specimen Anatomical Collection Method Collection Time Receive d Time (Source) Location / / Volume Laterality Blood 05/16/2016 8:55 AM 7 8:55 PROCESSOR SOLID PROPELLANT AM PROCESSOR SOLID PROPELLANT Yolanda Colón APRN, C.N.P. LAB BLOOD ADD-ON Performing Organization Address City/State/ZIP Code Phon e Number POWERCHART CBC with Differential (05/16/2016 8:55 AM PROCESSOR SOLID PROPELLANT) P athologist Signature Leukocytes 6.9 3.5 - 10.5 POWERCHART X109L Erythrocytes 5.05 4.32 - POWERCHART 5.72 [id number] Hemoglobin 15.0 13.5 - POWERCHART 17.5 GDL Hematocrit 45.6 38.8 - POWERCHART 50.0 MCV 90.3 81.2 - POWERCHART 95.1 FL HX RDW 13.0 11.8 - POWERCHART 15.6 Platelet Count 252 150 - 450 POWERCHART X109L HXDifferential? Auto POWERCHART Specimen (Source) Anatomical Collection Method Collection Time Re ceived Time Location / / Volume Laterality Blood 05/16/2016 8:55 AM PROCESSOR SOLID PROPELLANT Yolanda Colón APRN, C.N.P. LAB BLOOD ADD-ON Performing Organization Address City/State/ZIP Code Phon e Number POWERCHART (ABNORMAL) Lipid Panel (05/16/2016 8:55 AM PROCESSOR SOLID PROPELLANT) P athologist Signature Cholesterol, 196 <=199 MGDL POWERCHART Total Comment: 2013 National Lipid Association recommen dations for Total Cholesterol in adults ages 18 and up: Desirable <200 mg/dL Borderline high 200-239 mg/dL High 240 mg/dL 2014 National Lipid Association recommen dations for Total Cholesterol in children ages 2 to 17. Acceptable <170 mg/dL Borderline High 170-199 mg/dL High 200 mg/dL HX HDL 41 >=40 MGDL POWERCHART Comment: 2014 National Lipid Association recommen dations for HDL-C in adults ages 18 and up: Low <40 mg/dL (Men) Low <50 mg/dL (Women) 2014 National Lipid Association recommen dations for HDL-C in children ages 2 to 17. Low <40 mg/dL Borderline Low 40-45 mg/dL Acceptable >45 mg/dL Triglycerides 186 (H) <=149 MGDL POWERCHART Comment: 2014 National Lipid Association recommen dations for Triglycerides in adults ages 18 and up: Normal <150 mg/dL Borderline High 150-199 mg/dL High 200-499 mg/dL Very High 500 mg/dL 2014 National Lipid Association recommen dations for Triglycerides in children ages 2 to 9. Acceptable <75 mg/dL Borderline High 75-99 mg/dL High 100 mg/dL 2014 National Lipid Association recommen dations for Triglycerides in children ages 10 to 17. Acceptable <90 mg/dL Borderline High 90-129 mg/dL High 130 mg/dL Trigs >400mg/dL: Triglycerides >400 mg/ dL. Calculated LDL cholesterol is not valid. Non-HDL cholesterol may be used for risk assessment when triglycerides are >400mg/dL. Calculated LDL 118 <=129 MGDL POWERCHART Comment: 2013 National Lipid Association recommen dations for LDL-C in adults ages 18 and up: Desirable <100 mg/dL Above desirable 100-129 mg/dL Borderline high 130-159 mg/dL High 160-189 mg/dL Very High 190 mg/dL 2014 National Lipid Association recommen dations for LDL-C in children ages 2 to 17. Acceptable <110 mg/dL Borderline High 110-129mg/dL High 130 mg/dL LDL-C >190mg/dL: The markedly elevated LDL level is suggestive of a genetic condition such as familial hypercholesterolemia(FH) or familial defective apolipoprotein B-100 (FDB). Molecular genetic t esting for FH and FDB is available throu [facility]: FH/ADH Genetic Reflex Rivera el (test ADHP). Acquired (non-genetic) causes of markedly increased LDL cholesterol include cholestatic liver disease due to the presence of LpX. If a genetic form of hypercholesterolemia is suspected, family studies including biochemical testing fo r lipids (total cholesterol,triglycerides, LDL cholesterol and HDL cholesterol) are recommended. ??Please contact the laboratory at or the on-line test catalog at [facility] for information about how to order these endy ts or to speak with a genetic counselor. Further interpretation would require clinical information. Specimen (Source) Anatomical Collection Method Collection Time Re ceived Time Location / / Volume Laterality Blood 05/16/2016 8:55 AM PROCESSOR SOLID PROPELLANT Yolanda Colón APRN, C.N.P. LAB BLOOD ADD-ON Performing Organization Address City/State/ZIP Code Phon e Number POWERCHART BMP (Basic Metabolic Panel) (05/16/2016 8:55 AM PROCESSOR SOLID PROPELLANT) P athologist Signature Sodium, S 139 135 - 145 POWERCHART MMOLL Potassium, S 4.6 3.5 - 5.1 POWERCHART MMOLL Chloride, S 99 98 - 107 POWERCHART MMO[facility] CO2 Total 29 22 - 29 POWERCHART MMO[facility] BUN (Blood Urea 18 6 - 24 MGDL POWERCHART Nitrogen), S Creatinine 1.1 0.8 - 1.3 POWERCHART MGDL Calcium, Total, 10.0 8.8 - 10.3 POWERCHART S MGDL Anion Gap 11 7 - 15 MMOLL POWERCHART HXeGFR (MDRD) >60.0 >=60.0 POWERCHART MLMINSA eGFR >60.0 >=60.0 POWERCHART Black/ MLMINSA Sudanese Glucose 134 70 - 140 POWERCHART MGDL Specimen (Source) Anatomical Collection Method Collection Time Re ceived Time Location / / Volume Laterality Blood 05/16/2016 8:55 AM PROCESSOR SOLID PROPELLANT Yolanda Colón APRN, C.N.P. LAB BLOOD ADD-ON Performing Organization Address City/State/ZIP Code Phon e Number POWERCHART documented in this encounter Visit Diagnoses Not on filedocumented in this encounter
--- OUTSIDE RECORDS SUMMARY | 2021-12-28 10:01 | XMS_ITS | Encounter Summary ---
:1945 Author Organization [facility] Address [address] [place] [address] Care Team Providers Name Role Phone Unavailable Primary Care Provider Unavailable Encounter Details Date Type Department Care Team Description 09/02/2015 Hospital Encounter HX [facility] JENNIFERWendy Riojas, CIGAR PACKER, C.N.P. [address] [place] [phone] (Wo rk) Social History Tobacco Use Types [...] or relatives? How often do you attend hindu or 1 to 4 times per year 11/2019 quaker services? 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 documented as of this encounter Progress Notes Yolanda Colón, AMBER, C.N.P. - 09/02/2015 2:43 PM CDT [id number] CHIEF COMPLAINT/REASON FOR VISIT Fransico comes in today for follow up tailbone pain and refill of medications. HISTORY OF PRESENT ILLNESS The patient presented to the emergency room with complaints of left hip pain and left lower back pain. 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 He was having some pain that radiated into the left groin. He did see <__IM_1: BLANK 00:55 s/l Dr. Serrano__> for an adjustment that did cause some worsening of the pain. He was seen in the emergency room, received an injection of Dilaudid, sent home on August 30 with tablets of hydrocodone and Valium for muscle relaxer. The patient had a negative lumbar spine x-ray and left pelvis and hip x-ray. He is showing some disk degeneration between L4-L5, L5-S1. Remainder of the discs appear normal. He was also put on prednisone 50 mg daily for 5 days and he has 3 days remaining. He notes he is improving and he almost canceled his appointment today, however, he has no further medications left besidesthe prednisone. He was concerned over the weekend if he would need them for pain, he would have nothing left. He is no longer having radiating pain down the left side or groin, but has had some pain starting in the sacrum that has a sharp shooting sensation to the lower back. He sleeps on his side which does not bother his sleep at all. He notices aggravating factor to be twisting. If he walks and moves slowly, he is not having pain. The patient is scheduled to see a chiropractor tomorrow for additio nal adjustment. He has been out of work for the past 10 days and is hoping to return Monday. Rates his pain as 5/6 when it is occurring, it is not constant. PAST MEDICAL/SURGICAL HISTORY Past medical history: Hyperlipidemia. Hypertension. Morbid obesity. Reflux. Past surgical history: Hernia repair. FAMILY HISTORY Prostate cancer. Coronary artery disease. MEDICATIONS Amlodipine 5. Aspirin 81 mg. Bupropion SR 150. Centrum Silver. Fluticasone. Hytrin. Losartan. Hydrochlorothiazide. Naprosyn. Middlebranch 500. Omeprazole. Osteo Bi-Flex. Pravastatin. Viagra. Valium 5 mg 3 times a day as needed for muscle relaxer. Prednisone 50 mg daily x5, 3 days remain. Hydrocodone 5/325, 1 to 2 tablets every 6 hours as needed. ALLERGIES SULFA. TYLENOL. SYSTEMS REVIEW CHEST: No shortness of breath, cough, or chest pain. GI: No nausea, vomiting, diarrhea. No bowel changes. MUSCULOSKELETAL: Complains of pain as described above. He has no lower extremity weakness or feelings of giving way. No numbness in his lower legs or feet. Remainder of review of systems is negative. PHYSICAL EXAMINATION VITAL SIGNS: Temp 37.2, heart rate 87, blood pressure 138/70, O2 sat 94%. Height 176, weight 149, BMI 48.1. GENERAL: Pleasant 69-year-old male, who is walking with the assistance of a cane today, slowly, but gait is steady and appropriate. SPINE: Spine is in appropriate alignment with no spinal bony tenderness. Negative straight leg raise. DTRs are intact bilaterally. No pain along the sacral area. I am unable to elicit his symptoms today. He does get off of the table with some guarding, but overall moving quite well. IMPRESSION/REPORT/PLAN Low back strain with nerve impingement. PLAN: Will continue on the hydrocodone through the weekend , 1 to 2 tabs every 6 hours as needed for severe pain only, #24 provided and Valium 5 mg 3 times a day as needed muscle relaxer, #20, 0 refills. Patient should return next week if symptoms have not continued to improve. He will see <__IM_1: BLANK 05:12 s/l Dr. Serrano__> tomorrow for chiropractor adjustment. Continue with heat andice as well as Biofreeze. Recommended to stay active and continue with his walking daily and some strengthening and stretching exercises were advised today. Patient will follow up next week if symptomshave not improved. Would consider further MRI imaging and consultation with Dr. Hsieh. He voices unders tanding and in agreement with this plan. Yolanda Colón APRN, C.N.P./pos Electronically Signed By: YOLANDA COLÓN ELECTRICAL EQUIPMENT TESTER On: 09/04/2015 10:27 AM Source: [facility] MHSDOLBEYNONRADSYS Document Id: [id number] documented in this encounter Miscellaneous Notes Miscellaneous - Yolanda Colón APRN, C.N.P. - 09/02/2015 3:11 PM CDT Ambulatory Patient Summary [address] [place], [place] [phone] Visit Information Name: FRANSICO MACDONALD LULUNEREIDA [facility] Number: [id number] Current Date: 09/02/2015 15:11:19 Physicians Attending Provider: YOLANDA COLÓN NP Primary [...] tablet) 1 Tablet(s), Oral, once a day buPROPion (buPROPion SR 150 mg/12 hour oral tablet, sustained release) 1 Tablet(s), Oral, two times a day diazepam (diazepam 5 mg oral tablet) 1 Tablet(s), Oral, three times a day as needed for Anxiety Routed to Printer fluticasone nasal (fluticasone 50 mcg/inh nasal spray) 1 [place](s), Nasal, once a day glucosamine-chondroitin (Osteo Bi-Flex) 1 tablets, Oral, two times a day HYDROcodone-acetaminophen (HYDROcodone-acetaminophen 5 mg-325 mg oral tablet) 1 to 2 tablets, Oral, every 6 hours as needed for Pain No more than 4,000mg acetaminophen/24hrs This is a CHANGE Routed to Printer losartan-hydrochlorothiazide (losartan-hydrochlorothiazide 100 mg-25 mg oral tablet) 1 Tablet(s), Oral, once a day (Hyzaar) multivitamin with minerals (Centrum Silver Men's oral tablet) 1 Tablet(s), Oral, once a day naproxen (Naprosyn 500 mg oral tablet) 1 Tablet(s), Oral, two times a day as needed for pain omega-3 polyunsaturated fatty acids (Middlebranch-500 oral capsule) 1 cap, Oral, once a day omeprazole (omeprazole 20 mg oral delayed release capsule) 1 cap, Oral, once a day pravastatin (pravastatin 80 mg oral tablet) 1 Tablet(s), Oral, once a day (at bedtime) predniSONE (predniSONE 50 mg oral tablet) 1 Tablet(s), Oral, once a day x 5 day(s) sildenafil (sildenafil 25 mg oral tablet) 1 tablet one hour prior to sexual activity, Oral, once a day as needed for Erectile dysfunction terazosin (Hytrin 1 mg oral capsule) 1 cap, Oral, once a day (at bedtime) Stop Taking the Following Medications: Medication list as of 09-02-15 15:11 Attention: If you have any medications at [...] of emergency. Electronically Signed By: YOLANDA COLÓN ELECTRICAL EQUIPMENT TESTER Signed On:02-SEP-2015 15:11:12 Your Allergies & Intolerances Substance Reaction Symptoms [...] if you dont have one. Go to [email or web address] and click on Create Your Account. Then, follow the directions to complete the online form. Youll be asked for your [facility] number which you can find at the top of this document. Your Goals/Additional instructions: Source: [facility] POWERCHART Document Id: [id number] Miscellaneous - Yolanda Colón APRN, C.N.P. - 09/02/2015 3:11 PM CDT Ambulatory Discharge Medication List [address] [phone] Visit Information Name: FRANSICO MACDONALD [facility] Number: [id number] Visit Date: 09/02/2015 15:11:18 Attending Provider: YOLANDA COLÓN NP Primary Care Provider: YOLANDA COLÓN ELECTRICAL EQUIPMENT TESTER LIZETLOFRANSICO MICAELA has been given the following [...] tablet) 1 Tablet(s), Oral, once a day buPROPion (buPROPion SR 150 mg/12 hour oral tablet, sustained release) 1 Tablet(s), Oral, two times a day diazepam (diazepam 5 mg oral tablet) 1 Tablet(s), Oral, three times a day as needed for Anxiety Routed to Printer fluticasone nasal (fluticasone 50 mcg/inh nasal spray) 1 [place](s), Nasal, once a day glucosamine-chondroitin (Osteo Bi-Flex) 1 tablets, Oral, two times a day HYDROcodone-acetaminophen (HYDROcodone-acetaminophen 5 mg-325 mg oral tablet) 1 to 2 tablets, Oral, every 6 hours as needed for Pain No more than 4,000mg acetaminophen/24hrs This is a CHANGE Routed to Printer losartan-hydrochlorothiazide (losartan-hydrochlorothiazide 100 mg-25 mg oral tablet) 1 Tablet(s), Oral, once a day (Hyzaar) multivitamin with minerals (Centrum Silver Men's oral tablet) 1 Tablet(s), Oral, once a day naproxen (Naprosyn 500 mg oral tablet) 1 Tablet(s), Oral, two times a day as needed for pain omega-3 polyunsaturated fatty acids (Middlebranch-500 oral capsule) 1 cap, Oral, once a day omeprazole (omeprazole 20 mg oral delayed release capsule) 1 cap, Oral, once a day pravastatin (pravastatin 80 mg oral tablet) 1 Tablet(s), Oral, once a day (at bedtime) predniSONE (predniSONE 50 mg oral tablet) 1 Tablet(s), Oral, once a day x 5 day(s) sildenafil (sildenafil 25 mg oral tablet) 1 tablet one hour prior to sexual activity, Oral, once a day as needed for Erectile dysfunction terazosin (Hytrin 1 mg oral capsule) 1 cap, Oral, once a day (at bedtime) Stop Taking the Following Medications: Medication list as of 09-02-15 15:11 Attention: If you have any medications at [...] of emergency. Electronically Signed By: YOLANDA COLÓN ELECTRICAL EQUIPMENT TESTER Signed On:02-SEP-2015 15:11:12 Additional Information: Source: [facility] [employer] Document Id: [id number] Miscellaneous - Mervin Marquez L.P.N. - 09/02/2015 2:55 PM CDT Ambulatory Vitals Height Weight Ambulatory Vitals Height Weight Entered On: 09/02/2015 14:56 CDT Performed On: 09/02/2015 14:55 CDT by MERVIN MARQUEZ LPN Vitals/Ht/Wt Systolic Blood Pressure : 138 mmHg Diastolic Blood Pressure : 70 mmHg NIBP Mean : 93 mmHg Height : 176 cm(Converted to: 5 ft 9 inch(es), 69 inch(es)) MERVIN MARQUEZ LPN - 09/02/2015 14:55 CDT Source: [facility] [employer] Document Id: [id number] CDT!6 Miscellaneous - Mervin Marquez L.P.N. 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 Intake/History Entered On: 09/02/2015 14:54 CDT Performed On: 09/02/2015 14:52 CDT by MERVIN MARQUEZ LPN Intake Chief Complaint : tail bone pain discuss pain meds/muscle relaxer Temperature Core : 37.2 DegC(Converted to: 99.0 DegF) Peripheral Pulse Rate : 87 /min Systolic Blood Pressure : 156 mmHg (HI) Diastolic Blood Pressure : 72 mmHg NIBP Mean : 100 mmHg BP Location : Left upper extremity Blood Pressure Cuff Size : Large SpO2 : 94 % Height : 176 cm(Converted to: 5 ft 9 inch(es), 69 inch(es)) Actual Weight : 149 kg(Converted to: 328 lb 8 oz) Dosing Weight Clinic : 149 kg Clinic BSA : 2.7 Body Mass Index : 48.1 kg/m2 MERVIN MARQUEZ LPN - 09/02/2015 14:52 CDT General Info Languages : Urdu Is Patient Female and 13-50 no hysterectomy : No MERVIN MARQUEZ LPN - 09/02/2015 14:52 CDT Subjective Pain Symptoms : No MERVIN MARQUEZ LPN - 09/02/2015 14:52 CDT Dependent Habits Exposure to Tobacco Smoke : Other: former Smoking Status : Former smoker Tobacco 2A : Yes Tobacco Use/Currently Using : No Tobacco Use/Last 30 Days : No Tobacco Use/Last 12 months : No Tobacco Last Use/Year : 1995 MERVIN MARQUEZ LPN - 09/02/2015 14:52 CDT Caffeine Use Grid Caffeine Use : None MERVIN MARQUEZ LPN - 09/02/2015 14:52 CDT Recreational Drug Use Grid Drug Use : None MERVIN MARQUEZ LPN - 09/02/2015 14:52 CDT [facility]: [facility] Document Id: [id number] CDT!35 documented in this encounter Plan of Treatment Upcoming Encounters Date Type Specialty Care Team Description 02/11/2022 Appointment Laboratory Medicine Neli Hearn M.D. [address] [place] [phone] (Stephon caldera) 02/14/2022 Office Visit Family Medicine Lilli Hearn M.D. [address] [place] [phone] (Wo rk) documented as of this encounter Visit Diagnoses Not on filedocumented in this encounter
--- OUTSIDE RECORDS SUMMARY | 2021-12-28 10:01 | XMS_ITS | Encounter Summary ---
:1945 Author Organization [facility] Address [address] [place] [address] Care Team Providers Name Role Phone Unavailable Primary Care Provider Unavailable Encounter Details Date Type Department Care Team Description 08/10/2016 Hospital Encounter HX [facility] JENNIFERWendy Riojas, TANKMAN, C.N.P. [address] [place] [phone] (Wo rk) Social History Tobacco Use Types [...] at Date Recorded Male 04/20/2021 3:56 PM [employer]SEM[employer] documented as of this encounter Last Filed Vital Signs Vital Sign Reading Time Taken Comments Blood Pressure 160/80 08/10/2016 3:38 PM CDT Pulse 82 08/10/2016 3:38 PM CDT Temperature - - Respiratory Rate - - Oxygen Saturation - - Inhaled Oxygen Concentration - - Weight 149 kg (329 lb 9.4 oz) 08/10/2016 3:38 PM CDT Height 176 cm (5' 9.29) 08/10/2016 3:38 PM CDT Body Mass Index 48.26 08/10/2016 3:38 PM CDT documented in this encounter Medications [...] 1 tablet by 0 07/16/1901/09/2018 mouth daily. B.ANI/L.ACI/L.DEYVI/L.PLAN Take 1 capsule by [...] Progress Notes Yolanda Colón APRN, C.N.P. - 08/10/2016 3:34 PM CDT [id number] CHIEF COMPLAINT/REASON FOR VISIT 1. Medhat comes in today for recheck of lipoma. 2. Back pain with Naprosyn not working. HISTORY OF PRESENT ILLNESS 1. Medhat is a 70-year-old male, who was evaluated for a lipoma on the upper back/neck this past March. It is not causing him any discomfort however he notes it is growing slightly and he has decided he would like to have this removed. He did have a recent CT of his neck on 04/11/2016. This resulted in the EMR showing a 9.4 x 3.8 x 6.0 cm fatty mass in the posterior subcutaneous soft tissue of the neck base. Patient is embarrassed at its appearance and is going to a wedding this coming summer and decided that he would like to have this removed and is requesting further consultation to surgery. 2. He has been having some back pain. He did have an MRI at [facility] in [place], showing a disk bulge T11-T12 and disk bulge L3-L4. 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 Naprosyn 500 mg typically would help him for his discomfort however he notes that lately it is not. He is not interested in any further consultation at this time. He is not interested in having a steroid injection but is wondering if there would be another option that is not habit forming or sedating that he could try for pain. PAST MEDICAL/SURGICAL HISTORY PAST MEDICAL HISTORY: Hyperlipidemia. Benign essential hypertension. Morbid obesity. BMI 48. Obstructive sleep apnea. Depression. GERD. PAST SURGICAL PROCEDURAL HISTORY: Hernia repair. CT angiogram 2013. FAMILY HISTORY Mother breast cancer. Father prostate cancer and coronary artery disease. SOCIAL HISTORY He is . No regular exercise. 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 Nonsmoker. No alcohol use. MEDICATIONS CURRENT MEDICATIONS: Amlodipine 5 mg daily. Aspirin 81 mg daily. Bupropion 150 SR 1 tab twice a day. Centrum multivitamin. <__IM_1: s/l Junior Pemberton listed in previous records BLANK 03:05__> . Hytrin 1 mg. Losartan/hydrochlorothiazide 100/25 daily. Naprosyn 500 twice a day as needed for severe pain. Tyrone 500. Omeprazole. Osteo Bi-Flex. Pravastatin 80. Probiotic. Viagra. ALLERGIES Sulfa. Tylenol. SYSTEMS REVIEW REVIEW OF SYSTEMS: GENERAL: No fever, chills, sweats, body aches. Chest: No shortness of breath, cough, or chest pain. MUSCULOSKELETAL: Complains of pain in his back, worsening throughout the day. Denies any numbness tingling or radiation of pain. Denies heaviness in his lower extremities. GI: No problems with bowel or bladder control. Remainder review of systems are negative. VITAL SIGNS Temp 37, heart rate 82, blood pressure 160/80 recheck 160/80, O2 sat 94%. Height 176 weight 149.5, BMI 48.26. PHYSICAL EXAMINATION GENERAL: A 70-year-old pleasant male, who is in no apparent distress today. SKIN: Clear, pink and warm. He does have a large soft fatty mass noted on the base of his neck on the upper back. It is nontender to palpation. No surrounding lesions are noted. BACK: Spine is shown to have a marked lordosis nontender to palpation. Negative straight leg raise. DTRs are intact bilaterally. Gait is steady and appropriate. IMPRESSION/REPORT/PLAN IMPRESSION: 1. Lipoma upper back base of neck. 2. Lumbago with 2 bulging disks. 3. Other comorbid conditions not addressed today: A. Hyperlipidemia. B. Hypertension. C. Morbid obesity. D. Sleep apnea. E. Depression. PLAN: 1. Consult to General Surgery for removal of lipoma. 2. Discussed treatment for his back pain. Recommended further consultation with Physiatry as well asour dietitian. At this time patient notes he is too busy and is not interested in further consultation. We discussed symptomatic treatment including Biofreeze, Lidoderm patches which he believes are not covered by his insurance. We will try a short course of Relafen 500 mg twice a day as needed for pain and stop the Naprosyn at this time. If he is not noticing symptom improvement, he will touch base with me at that time and we will proceed with further evaluation. He voices understanding and is in agreement with this treatment plan. Yolanda Colón APRN, C.N.P./pos Electronically Signed By: YOLANDA COLÓN SFDC TECHNICAL ARCHITECT On: 08/11/2016 01:24 PM Source: [facility] [email or web address] Document Id: [id number] documented in this encounter Miscellaneous Notes Miscellaneous - Conversion, Historical Provider Ser - 08/11/2016 3:37 PM CDT LM FOR PT TO CHANGE TIME IN APPT 08/12/16 From: EVELYN MOLINA Sent: 08/11/2016 15:37:50 CDT Subject: LM FOR PT TO CHANGE TIME IN APPT 08/12/16 lm for pt to come at an earlier time to see Dr. Ritchie on 08/12/16. Source: [facility] POWERCHART Document Id: [id number] Miscellaneous - Yolanda Colón APRN, C.N.P. - 08/10/2016 4:43 PM CDT Ambulatory Patient Summary [address] [id number] Visit Information Name: FRANSICO MACDONALD MICAELA [facility] Number: [id number] Current Date: 08/10/2016 16:43:36 Physicians Attending Provider: YOLANDA COLÓN NP Primary Care Provider: YOLANDA COLÓN SFDC TECHNICAL ARCHITECT FRANSICO MACDONALD has been given the following [...] nasal (fluticasone 50 mcg/inh nasal spray) 1 [place](s), Nasal, once a day glucosamine-chondroitin (Osteo Bi-Flex) 1 tablets, Oral, two times a day losartan-hydroCHLOROthiazide (losartan-hydroCHLOROthiazide 100mg-25mg oral tablet) 1 Tablet(s), Oral, once a day (Hyzaar) multivitamin with minerals (Centrum Silver Men's oral tablet) 1 Tablet(s), Oral, once a day nabumetone (Relafen 500 mg oral tablet) 1 Tablet(s), Oral, two times a day as needed for Pain New Routed to [address] [address] omega-3 polyunsaturated fatty acids (Tyrone-500 oral capsule) 2 Tablet(s), Oral, once a [...] (at bedtime) Stop Taking the Following Medications: naproxen (Naprosyn 500 mg oral tablet) Medication list as of 08-10-16 16:43 Attention: If you have any medications at [...] of emergency. Electronically Signed By: YOLANDA COLÓN SFDC TECHNICAL ARCHITECT Signed On:10-AUG-2016 16:43:32 Your Allergies & Intolerances Substance Reaction Symptoms [...] if you dont have one. Go to [email or web address] and click on Create Your Account. Then, follow the directions to complete the online form. Youll be asked for your [facility] number which you can find at the top of this document. Your Goals/Additional instructions: Source: [facility] POWERCHART Document Id: [id number] Miscellaneous - Yolanda Colón APRN, C.N.P. - 08/10/2016 4:43 PM CDT Ambulatory Discharge Medication List [address] [id number] Visit Information Name: LIZETLOFRANSICO MICAELA [facility] Number: [id number] Current Date: 08/10/2016 16:43:34 Attending Provider: YOLADNA COLÓN SFDC TECHNICAL ARCHITECT Primary Care Provider: YOLANDA COLÓN [facility]DC TECHNICAL ARCHITECT FRANSICO MACDONALD has been given the following [...] nasal (fluticasone 50 mcg/inh nasal spray) 1 [place](s), Nasal, once a day glucosamine-chondroitin (Osteo Bi-Flex) 1 tablets, Oral, two times a day losartan-hydroCHLOROthiazide (losartan-hydroCHLOROthiazide 100mg-25mg oral tablet) 1 Tablet(s), Oral, once a day (Hyzaar) multivitamin with minerals (Centrum Silver Men's oral tablet) 1 Tablet(s), Oral, once a day nabumetone (Relafen 500 mg oral tablet) 1 Tablet(s), Oral, two times a day as needed for Pain New Routed to [address] [address] omega-3 polyunsaturated fatty acids (Tyrone-500 oral capsule) 2 Tablet(s), Oral, once a [...] (at bedtime) Stop Taking the Following Medications: naproxen (Naprosyn 500 mg oral tablet) Medication list as of 08-10-16 16:43 Attention: If you have any medications at [...] of emergency. 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 Negotiation Manager Intake/History Adult Contract Negotiation Manager Intake/History Entered On: 08/10/2016 15:40 CDT Performed On: 08/10/2016 15:38 CDT by KATY SHANNON LPN Intake Chief Complaint : consult, Temperature Core : 37 DegC(Converted to: 98.6 DegF) Peripheral Pulse Rate : 82 /min Systolic Blood Pressure : 160 mmHg (HI) Diastolic Blood Pressure : 80 mmHg NIBP Mean : 107 mmHg SpO2 : 94 % Height : 176 cm(Converted to: 5 ft 9 inch(es), 69 inch(es)) Actual Weight : 149.5 kg(Converted to: 329 lb 9 oz) Dosing Weight Clinic : 149.5 kg Clinic BSA : 2.7 Body Mass Index : 48.26 kg/m2 KATY SHANNON GORE INSERTER - 08/10/2016 15:38 CDT General Info Information Given By : Patient Languages : Somali Is Patient Female and 13-50 no hysterectomy : No AKTY SHANNON LPN - 08/10/2016 15:38 CDT Subjective Pain Symptoms : No KATY SHANNON LPN - 08/10/2016 15:38 CDT Dependent Habits Exposure to Tobacco Smoke : Other: former Smoking Status : Former smoker Tobacco 2A : Yes Tobacco Use/Currently Using : No Tobacco Use/Last 30 Days : No Tobacco Use/Last 12 months : No Tobacco Last Use/Year : 1995 KATY SHANNON LPN - 08/10/2016 15:38 CDT Caffeine Use Grid Caffeine Use : None KATY SHANNON LPN - 08/10/2016 15:38 CDT Recreational Drug Use Grid Drug Use : None KATY SHANNON LPN - 08/10/2016 15:38 CDT Source: [facility] POWERCHART Document Id: [id number] CDT!34 documented in this encounter Plan of Treatment Upcoming Encounters Date Type Specialty Care Team Description 02/11/2022 Appointment Laboratory Medicine Neli Hearn M.D. [address] [place] [phone] (Wo rk) 02/14/2022 Office Visit Family Medicine Lilli Hearn M.D. [address] [place] [phone] (Wo rk) documented as of this encounter Visit Diagnoses Not on filedocumented in this encounter
--- OUTSIDE RECORDS SUMMARY | 2021-12-28 10:02 | XMS_ITS | Encounter Summary ---
:1945 Author Organization [facility] Address [address] [place] [address] Care Team Providers Name Role Phone Unavailable Primary Care Provider Unavailable Encounter Details Date Type Department Care Team Description 01/14/2014 Hospital Encounter HX [facility] JENNIFERWendy Riojas, SHRINK PIT OPERATOR, C.N.P. [address] [place] [phone] (Wo rk) Social History Tobacco Use Types [...] or relatives? How often do you attend alevism or 1 to 4 times per year 11/2019 yarsanism services? 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 0 GLUCOSAMINE/CHONDR NOONAN A Take 1 tablet by 0 2013 SOD (OSTEO BI-FLEX ORAL) mouth 2 (two) times a day. aspirin 81 mg capsule Take 1 tablet by 0 07/16/19 11 01/09/2018 mouth daily. documented as of this encounter Progress Notes Yolanda Colón APRN, C.N.P. - 01/14/2014 3:04 PM CDT [id number] CHIEF COMPLAINT/REASON FOR VISIT Medhat comes in today for refills of his medications, blood work and to discuss some concerns. HISTORY OF PRESENT ILLNESS Medhat has gone on the [employer] diet and has lost 30 pounds. He states he is feeling very good about his progress. His overall joints feel much better. He notices his energy has improved. His shortness of breath has decreased and he is very motivated to continue with this plan. He has started exercising. Both he and his are doing the [employer] diet, and Medhat has actually taken over the cooking. He does need his medications refilled and his blood work for cholesterol. One concern he has today is difficulty with maintaining an erection. He has a very high libido, but states for the past 12 months he has noted a difficult time maintaining erection. He can get an reaction, but only lasts for a short period time. He has questions whether he could try one of the medications that is available for this. PAST MEDICAL/SURGICAL HISTORY MEDICAL: Essential hypertension. Hyperlipidemia. Reflux. Morbid obesity. Depression. BPH. SURGICAL: Hernia repair. CT angiography of coronary arteries. FAMILY HISTORY Mother, breast cancer and dementia. Father, coronary artery disease. Brother, prostate cancer. SOCIAL HISTORY He is . 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 Restarted exercise. Nonsmoker, no alcohol use. MEDICATIONS Aspirin 81 mg 1 tablet daily. Bupropion SR 150, 1 by mouth twice a day. Fluticasone. Hydrochlorothiazide 25 mg daily. Hytrin 1 mg at bedtime. Losartan 100 mg daily. Digestive Health, 2 tabs daily. Naprosyn 500 mg as needed for arthritic pain. Omeprazole 20, 1 by mouth daily. Osteo Bi-Flex 1 tablet twice a day. Pravastatin 80, 1 by mouth at bedtime. ALLERGIES TYLENOL. SYSTEMS REVIEW CHEST: He denies any shortness of breath. He states this has drastically improved since losing 30 pounds. Denies chest pain, chest tightness, palpitations. He denies any syncopal episodes. GI: No nausea, vomiting or diarrhea. Regular bowel movements. No blood in stool or urine. All other systems are negative or as above. VITAL SIGNS Temp 36.5, heart rate 85, blood pressure 150/90, recheck 150/82. O2 sat 95%. Height 172, weight 143,BMI 48.34. PHYSICAL EXAMINATION GENERAL: A very pleasant 68-year-old male who does appear to have lost a considerable amount of weight already. SKIN: [place] and warm. HEENT: Negative. CHEST: Lungs clear to auscultation. Respirations equal and unlabored. HEART: Rate and rhythm is regular. No murmur, gallop, or thrill. No carotid bruit or JVD. ABDOMEN: Soft, obese, nontender. No palpable mass or organomegaly. EXTREMITIES: No pedal edema. IMPRESSION/REPORT/PLAN 1. Essential hypertension. 2. Hyperlipidemia. 3. Erectile dysfunction. 4. Reflux. 5. Obesity. 6. Depression. PLAN: 1. Refilled the following medications: Bupropion SR 150, 1 by mouth twice a day. Hydrochlorothiazide 25 mg daily. Hytrin 1 mg at bedtime. Losartan 100 mg daily. Naprosyn was refilled for as needed use. Omeprazole 20 daily. Pravastatin 80 at bedtime. 2. Blood work drawn today is a comprehensive metabolic profile, lipid, PSA. Will call him with all results when they return. 3. Much reinforcement and encouragement given for his new diet and exercise plan, and the work he has done so far. Reinforced him to continue with his efforts, as he will only feel better once he losesa majority of his weight. 4. Discussed erectile dysfunction. Possible causes and treatments for erectile dysfunction. I did agree to try a low-dose Viagra given the mild reaction with Hytrin. Will try 25 mg as directed. Side effect profile and symptoms to watch for were discussed. If he should develop any chest pain, headachesor syncopal episode he should immediately stop the medication and follow up here at the clinic. The patient is in agreement with this treatment plan and will follow up accordingly. 5. I did advise colonoscopies every 10 years. He is not due this year. 6. Discussed immunizations. The patient declined shingles, pneumonia and flu vaccine today. 7. Follow up annually, but I encouraged him to return in 2 to 3 months for a followup check of his concerns today. The patient is in agreement with this treatment plan and will follow up accordingly. Yolanda Colón C.N.P./pos Electronically Signed By: YOLANDA COLÓN DEBURRER On: 01/22/2014 03:17 PM Source: [facility] MHSDOLBEYNONRADSYS Document Id: [id number] documented in this encounter Miscellaneous Notes Miscellaneous - Yolanda Colón APRN, C.N.P. - 01/16/2014 12:51 PM CDT Results Notification Document Contains Addenda Addendum by RICARDO WATERS LPN on 17 January 2014 15:19:05 CDT Pt notified Addendum by RICARDO WATERS LPN on 17 January 2014 08:41:43 CDT [facility] From: YOLANDA COLÓN DEBURRER To: RICARDO WATERS LPN; Sent: 01/16/2014 12:51:52 CDT Show up: 01/16/2014 12:52:00 CDT Subject: Results Notification Actions: Notify patient of results Great results Results: Date Result Name Ind Value Ref Range 01/14/2014 16:10 Sodium Lvl 138 mmol/L (135 - 145) 01/14/2014 16:10 Potassium Lvl 3.8 mmol/L (3.5 - 5.1) 01/14/2014 16:10 Chloride (L) 97 mmol/L (98 - 107) 01/14/2014 16:10 CO2 (H) 30 mmol/L (22 - 29) 01/14/2014 16:10 AGAP 11 mmol/L (7 - 15) 01/14/2014 16:10 Alkaline Phosphatase 62 U/L (40 - 130) 01/14/2014 16:10 Glucose Fasting (H) 106 mg/dL (70 - 99) 01/14/2014 16:10 Creatinine 1.1 mg/dL (0.8 - 1.3) 01/14/2014 16:10 EGFR (MDRD) >60.0 mL/min/SA (>=60.0 - ) 01/14/2014 16:10 EGFR (MDRD) >60.0 mL/min/SA (>=60.0 - ) 01/14/2014 16:10 BUN 15 mg/dL (6 - 24) 01/14/2014 16:10 Calcium Lvl 10.2 mg/dL (8.8 - 10.3) 01/14/2014 16:10 Protein Total 6.9 g/dL (6.3 - 7.9) 01/14/2014 16:10 Albumin Lvl 4.6 g/dL (3.5 - 5.2) 01/14/2014 16:10 AST 38 U/L (0 - 40) 01/14/2014 16:10 ALT 40 U/L (0 - 41) 01/14/2014 16:10 Bili Total 0.7 mg/dL ( - <=1.2) 01/14/2014 16:10 Cholesterol 161 mg/dL ( - <=199) 01/14/2014 16:10 Trig 103 mg/dL ( - <=149) 01/14/2014 16:10 HDL 40 mg/dL (>=40 - ) 01/14/2014 16:10 LDL Calculated (H) 100 mg/dL ( - <=99) 01/14/2014 16:10 PSA 1.8 ng/mL ( - <=4.5) Source: [facility] POWERCHART Document Id: [id number] Electronically signed by Conversion, [facility] Quality Assurance Analyst [id number] at 08/23/2016 12:07 AM CDT Miscellaneous - Yolanda Colón APRN, C.N.P. - 01/14/2014 3:52 PM CDT Ambulatory Patient Summary [address] [id number] Visit Information Name: FRANSICO MACDONALD [facility] Number: [id number] Current Date: 01/14/2014 15:52:36 Physicians Attending Provider: YOLANDA COLÓN DEBURRER Primary Care Provider: YOLANDA COLÓN DEBURRER FRANSICO MACDONALD has been given the following [...] Take Indications/Special Instructions/Comments/Notes for Patient Medication Changes/Routing aspirin (aspirin 81 mg oral tablet) 1 Tablet(s), Oral, once a day buPROPion (buPROPion SR 150 mg/12 hour oral tablet, sustained release) 1 Tablet(s), Oral, two times a day Routed to [address] [address] fluticasone nasal (fluticasone 50 mcg/inh nasal spray) 1 Morganza(s), Nasal, once a day glucosamine-chondroitin (Osteo Bi-Flex) 1 tablets, Oral, two times a day hydrochlorothiazide (hydrochlorothiazide 25 mg oral tablet) 1 Tablet(s), Oral, once a day Routed to [address] [address] losartan (losartan 100 mg oral tablet) 1 Tablet(s), Oral, once a day Routed to [address] [address] Misc Prescription (Misc Prescription) 2, once a day Misc Prescription (Misc Prescription) 2 Tablet(s), once a day digestive health naproxen (Naprosyn 500 mg oral tablet) 1 Tablet(s), Oral, two times a day as needed for pain omeprazole (omeprazole 20 mg oral delayed release capsule) 1 cap, Oral, once a day Routed to [address] [address] pravastatin (pravastatin 80 mg oral tablet) 1 Tablet(s), Oral, once a day (at bedtime) Routed to [address] [address] sildenafil (sildenafil 25 mg oral tablet) 1 tablet one hour prior to sexual activity, Oral, once a day as needed for Erectile dysfunction New Routed to [address] [address] terazosin (Hytrin 1 mg oral capsule) 1 cap, Oral, once a day (at bedtime) Routed to [address] [address] Stop Taking the Following Medications: Medication list as of 01-14-14 15:52 Attention: If you have any medications at [...] of emergency. Electronically Signed By: YOLANDA COLÓN DEBURRER Signed On:14-JAN-2014 15:52:22 Your Allergies & Intolerances Substance Reaction Symptoms Category Comments Tylenol Drug Your Problem List Problem Status Onset Comments Hypertension Essential (401.9) Active Hypercholesterolemia Active Obesity NOS Active Your Upcoming Appointments Date Time Location Provider No Appointments found Attention: Contact your local Clinic if further appointment detail needed. Your Goals/Additional instructions: Source: [facility] POWERCHART Document Id: [id number] Miscellaneous - Yolanda Colón APRN, C.N.P. - 01/14/2014 3:52 PM CDT Ambulatory Discharge Medication List [address] [id number] Visit Information Name: FRANSICO MACDONALD [facility] Number: [id number] Visit Date: 01/14/2014 15:52:34 Attending Provider: YOLANDA COLÓN DEBURRER Primary Care Provider: YOLANDA COLÓN DEBURRER FRANSICO MACDONALD has been given the following list of medications: Your Medications It is important to take your medications as directed. Use a pill box or chart to help remind you to take your medications. Please let your doctor or nurse know if you have problems taking your medications. Medication/Strength How to Take Indications/Special Instructions/Comments/Notes for Patient Medication Changes/Routing aspirin (aspirin 81 mg oral tablet) 1 Tablet(s), Oral, once a day buPROPion (buPROPion SR 150 mg/12 hour oral tablet, sustained release) 1 Tablet(s), Oral, two times a day Routed to [address] [address] fluticasone nasal (fluticasone 50 mcg/inh nasal spray) 1 Morganza(s), Nasal, once a day glucosamine-chondroitin (Osteo Bi-Flex) 1 tablets, Oral, two times a day hydrochlorothiazide (hydrochlorothiazide 25 mg oral tablet) 1 Tablet(s), Oral, once a day Routed to [address] [address] losartan (losartan 100 mg oral tablet) 1 Tablet(s), Oral, once a day Routed to [address] [address] Misc Prescription (Misc Prescription) 2, once a day Misc Prescription (Misc Prescription) 2 Tablet(s), once a day digestive health naproxen (Naprosyn 500 mg oral tablet) 1 Tablet(s), Oral, two times a day as needed for pain omeprazole (omeprazole 20 mg oral delayed release capsule) 1 cap, Oral, once a day Routed to [address] [address] pravastatin (pravastatin 80 mg oral tablet) 1 Tablet(s), Oral, once a day (at bedtime) Routed to [address] [address] sildenafil (sildenafil 25 mg oral tablet) 1 tablet one hour prior to sexual activity, Oral, once a day as needed for Erectile dysfunction New Routed to [address] [address] terazosin (Hytrin 1 mg oral capsule) 1 cap, Oral, once a day (at bedtime) Routed to [address] [address] Stop Taking the Following Medications: Medication list as of 01-14-14 15:52 Attention: If you have any medications at [...] of emergency. Electronically Signed By: YOLANDA COLÓN DEBURRER Signed On:14-JAN-2014 15:52:22 Additional Information: Source: [facility] POWERCHART Document Id: [id number] Miscellaneous - Yolanda Colón APRN, C.N.P. - 01/14/2014 3:45 PM CDT Ambulatory Vitals Height Weight Ambulatory Vitals Height Weight Entered On: 01/14/2014 15:45 CDT Performed On: 01/14/2014 15:45 CDT by YOLANDA COLÓN NP Vitals/Ht/Wt Systolic Blood Pressure : 150 mmHg (HI) Diastolic Blood Pressure : 82 mmHg NIBP Mean : 105 mmHg Height : 172 cm(Converted to: 5 ft 8 inch(es), 68 inch(es)) YOLANDA COLÓN DEBURRER - 01/14/2014 15:45 CDT Source: [place] Document Id: [id number] CDT!6 Miscellaneous - Katy Shannon L.P.N. - 01/14/2014 3:19 PM CDT Ambulatory Vitals Height Weight Ambulatory Vitals Height Weight Entered On: 01/14/2014 15:19 CDT Performed On: 01/14/2014 15:19 CDT by KATY SHANNON LPN Vitals/Ht/Wt Systolic Blood Pressure : 160 mmHg (HI) Diastolic Blood Pressure : 90 mmHg (HI) NIBP Mean : 113 mmHg Height : 172 cm(Converted to: 5 ft 8 inch(es), 68 inch(es)) KATY SHANNON LPN - 01/14/2014 15:19 CDT Source: [place] Document Id: [id number] CDT!6 Miscellaneous - Katy Shannon L.P.N. 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 Entered On: 01/14/2014 15:19 CDT Performed On: 01/14/2014 15:16 CDT by KATY SHANNON LPN Intake Chief Complaint : annual refills bloodwork Temperature Core : 36.5 DegC(Converted to: 97.7 DegF) Peripheral Pulse Rate : 85 /min Systolic Blood Pressure : 160 mmHg (HI) Diastolic Blood Pressure : 90 mmHg (HI) NIBP Mean : 113 mmHg SpO2 : 95 % Height : 172 cm(Converted to: 5 ft 8 inch(es), 68 inch(es)) Actual Weight : 143 kg(Converted to: 315 lb 4 oz) Dosing Weight Clinic : 143 kg Clinic BSA : 2.61 Body Mass Index : 48.34 kg/m2 KATY SHANNON [facility] - 01/14/2014 15:16 CDT General Info Information Given By : Patient Languages : Telugu Is Patient Female and 13-50 no hysterectomy : No KATY SHANNON [facility] - 01/14/2014 15:16 CDT Subjective Pain Symptoms : No KATY SHANNON [facility] - 01/14/2014 15:16 CDT Dependent Habits Tobacco Use/Currently Using : No Smoking Status : Former smoker KATY SHANNON [facility] - 01/14/2014 15:16 CDT Tobacco Use Grid Last Use : 40 YEARS AGO KATY SHANNON [facility] - 01/14/2014 15:16 CDT Alcohol Use : No KATY SHANNON [facility] - 01/14/2014 15:16 CDT Source: [facility] [employer] Document Id: [id number] CDT!27 Telephone Encounter - Brittany Vallejo Yayo LFamiliaPFamiliaNFamilia - 12/25/2013 3:55 PM CDT shingles Document Contains Addenda Addendum by ADAMARIS SEVILLA RN on 26 December 2013 15:46:23 CDT talked to Fransico and pt will get the vaccination Addendum by ADAMARIS SEVILLA RN on 26 December 2013 09:10:18 CDT LEFT MESSAGE Addendum by YOLANDA COLÓN DEBURRER on 26 December 2013 08:52:19 CDT From: YOLANDA COLÓN DEBURRER To: YUMIKO [facility] Nurse; Sent: 12/26/2013 08:52:19 CDT Subject: RE: shingles Please let him know that shingles is not contagious, but vaccination is advised. Addendum by YOLANDA COLÓN NP on 26 December 2013 08:51:53 CDT From: YOLANDA COLÓN DEBURRER To: YUMIKO Michael [facility] Nurse; Sent: 12/26/2013 08:51:53 CDT Subject: RE: shingles yes. ok for a RX for zostivax Addendum by MERVIN JAUREGUI RN on 25 December 2013 16:42:15 CDT From: MERVIN JAUREGUI RN ([facility] Nurse) To: YOLANDA COLÓN DEBURRER; Sent: 12/25/2013 16:42:15 CDT Subject: FW: shingles Patient's was just diagnosed with Shingles, patient is wondering if you would recommend he get the shingles vaccine. Lissy advise what you would recommend. Addendum by KATY SHANNON LPN on 25 December 2013 16:40:59 CDT From: KATY SHANNON LPN To: YUMIKO Michael [facility] Nurse; Sent: 12/25/2013 16:40:59 CDT Subject: RE: shingles I don't see anything documented in chart. Addendum by MERVIN JAUREGUI RN on 25 December 2013 16:19:40 CDT From: MERVIN JAUREGUI RN (YUMIKO [facility] Nurse) To: KATY SHANNON LPN; Sent: 12/25/2013 16:19:40 CDT Subject: FW: shingles Please check paper chart for shingles vaccine, nothing in [facility] or immunization in [employer] From: BRITTANY VALLEJO LPN To: YUMIKO UriarteMichael [facility] Nurse; Sent: 12/25/2013 15:55:11 CDT Subject: shingles Caller is: ( x ) Patient ( ) Mother ( ) Father ( ) Spouse ( ) Daughter ( ) Son ( ) Pharmacy ( ) Other: Physician: Yolanda Rabenberg Patient MRN #: Reason for Call: Message: States his was just diagnosed with shingles. Wondering whether he should get the immunization. None noted in [employer]. Please advise at # above. thanks Advice/Action: Source used: ( ) Verbalizes understanding of instructions ( ) Instructed to call back if symptoms worsen or do not resolve ( ) Refused to see provider ( ) Appointment Scheduled ( ) OK to leave message on voice mail ( ) Patient told to expect return call: ( ) today ( ) tomorrow ( ) next work day ( ) Patient's email ( ) Patient told physician out of office, will call upon return call on ( ) ( ) Patient told physician out of office, routed to other physician ( ) Other ( ) Call back telephone number ( ) Call back cell phone number ( ) Source: [facility] [employer] Document Id: [id number] Electronically signed by Cornelia, [facility] Quality Assurance Analyst [id number] at 08/23/2016 12:07 AM CDT documented in this encounter Plan of Treatment Upcoming Encounters Date Type Specialty Care Team Description 02/11/2022 Appointment Laboratory Medicine Neli Hearn M.D. [address] [place] [phone] (Wo verenice) 02/14/2022 Office Visit Family Medicine Lilli Hearn M.D. [address] [place] [phone] (Wo verenice) documented as of this encounter Procedures Procedure Name Priority Date/Time Associated Comments Diagnosis LIPID PANEL, S Routine 01/14/2014 4:10 PM Results for this CDT procedure are i n the results section. PROSTATE-SPECIFIC AG Routine 01/14/2014 4:10 PM R esults for this (PSA) SCRN, S CDT procedure are in the results section. COMPREHENSIVE Routine 01/14/2014 4:10 PM Results for this METABOLIC PANEL, S/P CDT procedu re are in the results section. documented in this encounter Results PSA (Prostate-Specific Antigen) Screen (01/14/2014 4:10 PM CDT) P athologist Signature Prostate-Specif 1.8 <=4.5 NGML POWERCHART ic Ag Specimen (Source) Anatomical Collection Method Collection Time Re ceived Time Location / / Volume Laterality Blood 01/14/2014 4:10 PM CDT Yolanda Colón APRN C.N.P. LAB BLOOD ADD-ON Performing Organization Address City/State/ZIP Code Phon e Number POWERCHART (ABNORMAL) CMP (Comprehensive Metabolic Panel) (01/14/2014 4:10 PM CDT) Patholo gist Method Time Signature Alanine 40 0 - 41 UL POWERCHART Amniotransferase, LD Albumin, S 4.6 3.5 - 5.2 POWERCHART GDL Alkaline 62 40 - 130 POWERCHART Phosphatase, S UL Aspartate 38 0 - 40 UL POWERCHART Aminotransferase (AST), S Sodium, S 138 135 - 145 POWERCHART MMOLL Potassium, S 3.8 3.5 - 5.1 POWERCHART MMOLL Chloride, S 97 (L) 98 - 107 POWERCHART [facility] CO2 Total 30 (H) 22 - 29 POWERCHART MMO[facility] Glucose, Fasting, S 106 (H) 70 - 99 POWERCHART MGDL BUN (Blood Urea 15 6 - 24 POWERCHART Nitrogen), S MGDL Creatinine 1.1 0.8 - 1.3 POWERCHART MGDL Calcium, Total, S 10.2 8.8 - 10.3 POWERCHART MGDL Anion Gap 11 7 - 15 POWERCHART MMOLL HXeGFR (MDRD) >60.0 >=60.0 POWERCHART MLMINSA eGFR Black/ >60.0 >=60.0 POWERCHART [place] MLMINSA Bilirubin, Total, S 0.7 <=1.2 MGDL POWERCHAR T Total Protein, S 6.9 6.3 - 7.9 POWERCHART GDL Specimen (Source) Anatomical Collection Method Collection Time Re ceived Time Location / / Volume Laterality Blood 01/14/2014 4:10 PM CDT Yolanda Colón APRN, C.N.P. LAB BLOOD ADD-ON Performing Organization Address City/State/ZIP Code Phon e Number POWERCHART (ABNORMAL) Lipid Panel (01/14/2014 4:10 PM CDT) P athologist Signature Cholesterol, 161 <=199 MGDL POWERCHART Total Comment: The National Cholesterol Education Progr am (NCEP) has set the following guidelines for Cholesterol in adults age 18 and up: Desirable < 200 mg/dL Borderline High 200-239 mg/dL High > or = 240 mg/dL The National Cholesterol Education Progr am (NCEP) has set the following guidelines for Cholesterol in children ages 2 to 17: Desirable < 170 mg/dL Borderline High 170-199 mg/dL High > or = 200 mg/dL HX HDL 40 >=40 MGDL POWERCHART Comment: The National Cholesterol Education Progr am (NCEP) has set the following guidelines for HDL in adults age 18 and up: Low < 40 mg/dL Normal 40-60 mg/dL High > 60 mg/dL The National Cholesterol Education Progr am (NCEP) has set the following guidelines for HDL in children ages 2 to 17: Low < 40 mg/dL Borderline Low 40-59 mg/dL Normal > or = 60 mg/dL Values > 60 mg/dL are considered a negat jitendra risk factor for coronary heart disease (CHD) and are considered protective. Values < 40 mg/dL correlate with increas ed risk for CHD. Triglycerides 103 <=149 MGDL POWERCHART Comment: The National Cholesterol Education Progr am (NCEP) has set the following guidelines for Triglycerides in adults ages 18 and up: Normal <150 mg/dL Borderline 150-199 mg/dL High 200-499 mg/dL Very High > or = 500 mg/dL The National Cholesterol Education Progr am (NCEP) has set the following guidelines for Triglycerides in children ages 2 to 17. Normal <90 mg/dL Borderline 90-129 mg/dL High > or = 130 mg/dL Calculated LDL 100 (H) <=99 MGDL POWERCHART Comment: The National Cholesterol Education Progr am (NCEP) has set the following guidelines for LDL-C in adults age 18 and up: Optimal < 100 mg/dL* Near Optimal 100-129 mg/dL Borderline High 130-159 mg/dL High 160-189 mg/dL Very High > or = 190 mg/dL *In patients with a history of heart dis ease and/or diabetes an LDL-C goal of < 70 mg/dL should be considered. The National Cholesterol Education Progr am (NCEP) has set the following guidelines for LDL-C in children ages 2 to 17: Desirable < 110 mg/dL Borderline High 110-129 mg/dL High > or = 130 mg/dL Specimen (Source) Anatomical Collection Method Collection Time Re ceived Time Location / / Volume Laterality Blood 01/14/2014 4:10 PM CDT Yolanda Colón APRN, C.N.P. LAB BLOOD ADD-ON Performing Organization Address City/State/ZIP Code Phon e Number POWERCHART documented in this encounter Visit Diagnoses Not on filedocumented in this encounter
--- OUTSIDE RECORDS SUMMARY | 2021-12-28 10:02 | XMS_ITS | Encounter Summary ---
:1945 [facility] Address [address] [place] [address] Care Team Providers Name Role Phone Unavailable Primary Care Provider Unavailable Encounter Details Date Type Department Care Team Description 03/12/2015 Hospital Encounter HX [facility] Wendy Colón, FERMENTER WINE, C.N.P. 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 documented as of this encounter Miscellaneous Notes Miscellaneous - Conversion, Historical Provider Ser - 03/13/2015 9:08 AM RUBBER TIRE CURER Coding Summary-Paper Based CODING DATE: 03/13/2015 FINAL [facility] STATUS: * Discharged to Home or Self Care PAYOR: Medicare ADMIT DX: REASON FOR VISIT DX: FINAL DX: PRINCIPAL: Z13.6 Encounter for screening for cardiovascular disorders SECONDARY: PROCEDURES DOCTOR NAME DATE NOTE: The code number assigned matches the documented diagnosis and / or procedure in the patient's chart. However, the narrative phrase printed from the coding software may appear abbreviated, or result in slightly different terminology. Coded By: ANTONETTE MOON Date Saved: 03/13/2015 09:08 am Source: [facility] JoyhoundCHART Document Id: [id number] Miscellaneous - Yolanda Colón APRN, C.N.P. - 03/13/2015 7:50 AM RUBBER TIRE CURER Results Notification Document Contains Addenda Addendum by MERVIN FERRELL LPN on 13 March 2015 09:13:13 RUBBER TIRE CURER Called patient and verbalized below. From: YOLANDA COLÓN DIGITAL MARKETING EXECUTIVE To: MERVIN FERRELL LPN; Sent: 03/13/2015 07:50:15 RUBBER TIRE CURER Show up: 03/13/2015 07:50:00 RUBBER TIRE CURER Subject: Results Notification Actions: Notify patient of results No evidence of aortic anuerysm. Results: Date Result Type Result Name 03/12/2015 11:37 Radiology US Abdominal Aorta Source: [facility] POWERCHART Document Id: [id number] documented in this encounter Plan of Treatment Upcoming Encounters Date Type Specialty Care Team Description 02/11/2022 Appointment Laboratory Medicine Neli Hearn M.D. [address] [place] [phone] (Wo rk) 02/14/2022 Office Visit Family Medicine Lilli Hearn M.D. [address] [place] [phone] (Wo rk) documented as of this encounter Procedures Procedure Name Priority Date/Time Associated Diagnosis Comme nts US AORTA Routine 03/12/2015 10:42 AM Results for this RUBBER TIRE CURER procedure are i n the results section . documented in this encounter Results US Aorta (03/12/2015 10:42 AM RUBBER TIRE CURER) Anatomical Region Laterality Modality Abdomen, Pelvis N/A Ultrasound Specimen (Source) Anatomical Collection Method Collection Time Re ceived Time Location / / Volume Laterality 03/12/2015 10:42 AM RUBBER TIRE CURER Narrative 03/12/2015 11:34 AM RUBBER TIRE CURER Exam: ?? US Abdominal Aorta Clinical history: screening, high risk Comparison: None Findings: The proximal, mid, and distal aorta measure 2.6, 2.2, and 1.5 cm in diameter. The left and right i liac arteries measure 1.5 and 1.6 cm respectively. Impression: No evidence for abdominal ao rtic aneurysm. Procedure Note Otf Beaulieu M.D. / Provider, Kash pace M.D. - 08/04/2016 Exam: US Abdominal Aorta Clinical history: screening, high risk Comparison: None Findings: The proximal, mid, and distal aorta measure 2.6, 2.2, and 1.5 cm in diameter. The left and right i liac arteries measure 1.5 and 1.6 cm respectively. Impression: No evidence for abdominal ao rtic aneurysm. Natacha Niño R.V.T., AnnaMFamiliaS. IMG US PROCEDURES documented in this encounter Visit Diagnoses Not on filedocumented in this encounter
--- OUTSIDE RECORDS SUMMARY | 2021-12-28 10:02 | XMS_ITS | Encounter Summary ---
:1945 Author Organization [facility] Address [address] [place] [address] Care Team Providers Name Role Phone Unavailable Primary Care Provider Unavailable Encounter Details Date Type Department Care Team Description 08/14/2012 Hospital Encounter HX [facility] JENNIFERWendy Riojas, TIP STRETCHER, C.N.P. 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 0 aspirin 81 mg capsule Take 1 tablet by 0 07/16/19 11 01/09/2018 mouth daily. documented as of this encounter Progress Notes Yolanda Colón APRN, C.N.P. - 08/14/2012 3:39 PM CDT [id number] CHIEF COMPLAINT/REASON FOR VISIT 1. Medhat comes in today for continued pain on both of his feet. He was seen by Dr. Lilli Jarrell [email or web address] for another concern and did complain of some right- sided foot pain at that time. It was explained to him that he had tendonitis and was recommended to take ibuprofen. He states since then the pain has become worse; it is the entire side of his foot, the bottom of his foot, and his toes on the left foot; right foot is mildly tender. He does state just a few days ago he was in his garden for a considerable amount of time on his feet and this did seem to worsen his discomfort. He denies any numbness or tingling in his feet. Denies any changes in skin. States it is quite painful to walk. 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 2. He is also here to have his cholesterol and liver rechecked. He recently had a dose change for his medications and was advised to return to have this level rechecked. He is fasting today. PAST MEDICAL/SURGICAL HISTORY Depression, hypertension, hyperlipidemia, reflux. CURRENT MEDICATIONS Multivitamin. Aspirin 81mg daily. Bupropion XL 150 mg 1 tablet 2 times a day. Fluticasone nasal spray. Hydrochlorothiazide 25 mg. Hytrin 1 mg daily. Losartan 100 mg daily. Naprosyn 500 mg 2 times a day for back pain. Omeprazole 20 mg daily. Pravastatin 40, 1-1/2 tablets daily. Terazosin 1 mg. SYSTEMS REVIEW Denies any other concerns or complaints today. ALLERGIES He has allergies to TYLENOL. VITAL SIGNS Height 171, weight is 150. BMI 51.71, temperature 36.8, heart rate 79, blood pressure 128/80. O2 satis 97%. PHYSICAL EXAMINATION A pleasant 66-year-old male in no apparent distress when sitting. As he gets up to walk, he does elicit pain and has a limp favoring the left side. No pedal edema is noted. Both feet are noted to have some purplish discoloration over the toes. No obvious inflammation is noted. Pain along the left lateral aspect of the foot as well as the entire bottom of the foot with pressure applied. No pain along the heel or toes. Good sensation is noted bilaterally. Right foot with no pain upon exam today. No obvious deformities or flattened arches. IMPRESSION/REPORT/PLAN 1. Bilateral foot pain with probable plantar fasciitis. 2. Hyperlipidemia with recent dose change. PLAN: Lab work today: Lipid panel and AST, ALT; we will call with those results when they return. Discussed treatment options with Medhat regarding his feet. Recommended a good support of arch in his shoes. He could purchase an insert at a pharmacy or we could have him look into professional arches. Plantar fasciitis was discussed at length. Encouraged stretching of the feet. Medication options were discussed. He is interested in trying some prednisone; Medrol Dosepak was sent to [facility] and advised to take according to package directions with food. Stop his Naprosyn for the current time while he is on this medication, and he may resume after it is complete. A consult was made to Dr. Marcellus Toledo, envelope stamping machine operator, for next , and he will follow up with him if his symptoms have not improved. Weight loss was recommended. We will call with his results when they return. Yolanda Colón, C.N.P./gregoria Electronically Signed By: YOLANDA COLÓN ESTHETICIAN FACIALIST On: 08/22/2012 09:11 AM Source: [facility] MHSDOLBEYNONRADSYS Document Id: [id number] documented in this encounter Miscellaneous Notes Miscellaneous - Conversion, Historical Provider Ser - 11/21/2012 4:54 PM CDT Bupropion Document Contains Addenda Addendum by ARLET TUBBS RN on 22 November 2012 11:45:44 CDT Done Addendum by LILLI JARRELL MD on 22 November 2012 10:38:00 CDT From: LILLI JARRELL MD To: [facility] Nurse Call Center Provider [facility]; Sent: 11/22/2012 10:38:00 CDT Subject: RE: Bupropion refill the BupropionSR 150 BID From: PAT HINDS RN ([facility] Nurse Call Center Provider [facility]) To: LILLI JARRELL MD; Sent: 11/21/2012 16:54:23 CDT Subject: Bupropion Received fax from pharmacy stating that Bupropion XL 150 mg 1 tab bid is not covered by patient's insurance. Pharmacy indicates that either Bupropion XL 300 mg 1 tab daily or Bupropion SR 150 mg 1 tab bid would be covered by insurance. Please advise. Source: [facility] Recognition PRO Document Id: [id number] Miscellaneous - Katy Shannon, L.P.N. - 08/16/2012 8:23 AM CDT podiatry appt. From: KATY SHANNON LPN To: YOLANDA COLÓN ESTHETICIAN FACIALIST; Sent: 08/16/2012 08:23:53 CDT Subject: podiatry appt. Pt declines podiatry appt. Source: [facility] Recognition PRO Document Id: [id number] Electronically signed by Conversion, [facility] Icu Staff Nurse [id number] at 08/24/2016 12:59 PM CDT Miscellaneous - Yolanda Colón APRN, C.N.P. - 08/15/2012 1:43 PM CDT General Message From: YOLANDA COLÓN ESTHETICIAN FACIALIST To: LILLI JARRELL MD; Sent: 08/15/2012 13:43:11 CDT Subject: General Message I called with his cholesterol results. just wanted you to see them improving. Source: [employer] Document Id: [id number] Electronically signed by Conversion, [facility] Icu Staff Nurse [id number] at 08/24/2016 12:59 PM CDT Miscellaneous - Yolanda Colón APRN, C.N.P. - 08/15/2012 1:32 PM CDT Results Notification From: YOLANDA COLÓN ESTHETICIAN FACIALIST Sent: 08/15/2012 13:32:47 CDT Show up: 08/15/2012 13:32:00 CDT Subject: Results Notification notified of improved cholesterol results. will also forward to dr. Jarrell Results: Date Result Name Ind Value Ref Range 08/14/2012 16:20 AST 22 U/L (3 - 35) 08/14/2012 16:20 ALT 29 U/L (6 - 50) 08/14/2012 16:20 Cholesterol 188 mg/dL (120 - 200) 08/14/2012 16:20 Trig 151 mg/dL (35 - 185) 08/14/2012 16:20 HDL (L) 38 mg/dL (>=40 - ) 08/14/2012 16:20 LDL Calculated 120 mg/dL (60 - 130) 08/14/2012 16:20 Chol/HDL Ratio (H) 4.9 (0.0 - 4.5) 08/14/2012 16:20 LDL/HDL 3 [facility] Document Id: [id number] Electronically signed by Conversion, [facility] Icu Staff Nurse [id number] at 08/24/2016 12:59 PM CDT Miscellaneous - Katy Shannon L.P.N. - 08/14/2012 3:47 PM CDT Adult Meter Record Clerk Intake/History Adult Meter Record Clerk Intake/History Entered On: 08/14/2012 15:50 CDT Performed On: 08/14/2012 15:47 CDT by KATY SHANNON LPN Intake Chief Complaint : can't walk something happened to his feet Temperature Core : 36.8 DegC(Converted to: 98.2 DegF) Peripheral Pulse Rate : 79 /min Systolic Blood Pressure : 128 mmHg Diastolic Blood Pressure : 80 mmHg NIBP Mean : 96 mmHg SpO2 : 97 % Actual Weight : 150 kg(Converted to: 330 lb 11 oz) Dosing Weight Clinic : 150 kg KATY SHANNON LPN - 08/14/2012 15:47 CDT General Info Languages : Marshallese KATY SHANNON LPN - 08/14/2012 15:47 CDT Subjective Pain Symptoms : Yes KATY SHANNON LPN - 08/14/2012 15:47 CDT Pain Pain Assessment Grid Pain 1 Location : Other: feet KATY SHANNON LPN - 08/14/2012 15:47 CDT Dependent Habits Tobacco Use/Currently Using : No Smoking Status : Former smoker Alcohol Use : Yes KATY SHANNON LPN - 08/14/2012 15:47 CDT Source: [employer] Document Id: [id number] documented in this encounter Plan of Treatment Upcoming Encounters Date Type Specialty Care Team Description 02/11/2022 Appointment Laboratory Medicine Neli Jarrell M.D. [address] [place] [phone] (Wo rk) 02/14/2022 Office Visit Family Medicine Lilli Jarrell M.D. [address] [place] [phone] (Stephon rk) documented as of this encounter Procedures Procedure Name Priority Date/Time Associated Comments Diagnosis LIPID PANEL, S Routine 08/14/2012 4:20 Results fo r this PM CDT procedure are i n the results section. ALANINE AMINOTRANSFERASE Routine 08/14/2012 4:20 Results for this (ALT), S/P PM CDT procedure are i n the results section. ASPARTATE Routine 08/14/2012 4:20 Results for this AMINOTRANSFERASE (AST), PM CDT proc edure are in S/P the results section. documented in this encounter Results ALT (Alanine Aminotransferase) (08/14/2012 4:20 PM CDT) P athologist Signature Alanine 29 6 - 50 UL POWERCHART Amniotransferas e, LD Specimen (Source) Anatomical Collection Method Collection Time Re ceived Time Location / / Volume Laterality Blood 08/14/2012 4:20 PM CDT Yolanda Colón APRN, C.N.P. LAB BLOOD ADD-ON Performing Organization Address City/State/ZIP Code Phon e Number POWERCHART (ABNORMAL) Lipid Panel (08/14/2012 4:20 PM CDT) [facility] gist Method Time Signature Cholesterol, Total 188 120 - 200 POWERCHART MGDL HX HDL 38 (L) >=40 MGDL POWERCHART Triglycerides 151 35 - 185 POWERCHART MGDL Calculated LDL 120 60 - 130 POWERCHART MGDL Total 4.9 (H) 0.0 - 4.5 POWERCHART Cholesterol/HDL Ratio HXLDL/HDL 3 POWERCHART Specimen (Source) Anatomical Collection Method Collection Time Re ceived Time Location / / Volume Laterality Blood 08/14/2012 4:20 PM CDT Yolanda Colón APRN, C.N.P. LAB BLOOD ADD-ON Performing Organization Address City/State/ZIP Code Phon e Number POWERCHART AST (Aspartate Aminotransferase) (08/14/2012 4:20 PM CDT) [facility] gist Method Time Signature Aspartate 22 3 - 35 UL POWERCHART Aminotransferase (AST), S Specimen (Source) Anatomical Collection Method Collection Time Re ceived Time Location / / Volume Laterality Blood 08/14/2012 4:20 PM CDT Yolanda Colón APRN, C.N.P. LAB BLOOD ADD-ON Performing Organization Address City/State/ZIP Code Phon e Number POWERCHART documented in this encounter Visit Diagnoses Not on filedocumented in this encounter
--- OUTSIDE RECORDS SUMMARY | 2021-12-28 10:02 | XMS_ITS | Encounter Summary ---
:1945 Author Organization [facility] Address [address] [place] [address] Care Team Providers Name Role Phone Unavailable Primary Care Provider Unavailable Encounter Details Date Type Department Care Team Description 05/14/2013 Hospital Encounter HX [facility] Jono Krueger M.D. [address] [place], [place] [phone] (Wo rk) Social History Tobacco Use Types [...] 1 to 4 times per year 11/2019 [employer] services? 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 [address] [place] [phone] (Wo rk) 02/14/2022 Office Visit Family Medicine Lilli Hearn M.D. [address] [place] [phone] (Wo rk) documented as of this encounter Procedures Procedure Name Priority Date/Time Associated Comments Diagnosis CREATININE WITH Routine 05/14/2013 10:35 AM Resul ts for this EGFR, S/P COMPACTOR DRIVER procedure are i n the results section. documented in this encounter Results Creatinine with eGFR (05/14/2013 10:35 AM COMPACTOR DRIVER) P athologist Signature Creatinine 1.0 0.8 - 1.3 POWERCHART MGDL HXeGFR (MDRD) >60.0 >=60.0 POWERCHART eGFR >60.0 >=60.0 POWERCHART Black/ Specimen (Source) Anatomical Collection Method Collection Time Re ceived Time Location / / Volume Laterality Blood 05/14/2013 10:35 AM COMPACTOR DRIVER Yordy Krueger M.D. LAB BLOOD ADD-ON Performing Organization Address City/State/ZIP Code Phon e Number POWERCHART documented in this encounter Visit Diagnoses Not on filedocumented in this encounter
--- OUTSIDE RECORDS SUMMARY | 2021-12-28 10:02 | XMS_ITS | Encounter Summary ---
:1945 Author Organization [facility] Address [address] [place] [address] Care Team Providers Name Role Phone Unavailable Primary Care Provider Unavailable Encounter Details Date Type Department Care Team Description 03/18/2015 Hospital Encounter HX [facility] MAN Jamie Guzmán M.D. Social History Tobacco Use Types Packs/Day [...] or relatives? How often do you attend yazidi or 1 to 4 times per year 11/2019 holiness services? 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 documented as of this encounter Last Filed Vital Signs Vital Sign Reading Time Taken Comments Blood Pressure 164/100 03/18/2015 9:02 AM PILLING MACHINE OPERATOR Pulse 83 03/18/2015 9:02 AM PILLING MACHINE OPERATOR Temperature - - Respiratory Rate 16 03/18/2015 9:02 AM PILLING MACHINE OPERATOR Oxygen Saturation - - Inhaled Oxygen Concentration - - Weight 144 kg (317 lb 7.4 oz) 03/18/2015 9:02 AM PILLING MACHINE OPERATOR Height 172 cm (5' 7.72) 03/18/2015 9:02 AM PILLING MACHINE OPERATOR Body Mass Index 48.67 03/18/2015 9:02 AM PILLING MACHINE OPERATOR documented in this encounter Medications at Time [...] mouth daily. documented as of this encounter Consult Notes Chester Payan M.D. - 03/18/2015 8:32 AM CST [id number] CHIEF COMPLAINT/REASON FOR VISIT A sleep medicine consultation regarding treatment of obstructive sleep apnea. HISTORY OF PRESENT ILLNESS Medhat is a 69-year-old male, who is seeing me today at the recommendation of his primary provider,Yolanda Colón C.N.P. due to his being off treatment for obstructive sleep apnea. Ms. Colón saw him on 03/11/2015 for a blood pressure recheck. He reported at that time that he had seen the DOT physician for recertification, but he was not cleared because his blood pressure was quite high in addition to the fact that he was supposed to be on nasal CPAP but was not using it. He quit using it when he lost 65 pounds and no longer had problems with snoring or excessive daytime sleepiness. He scores just 1 on the Anderson survey at today's visit. Patient estimates that he has been off treatment for about a year and a half. He is covered by Medicare and would need to have another sleep study to getback on the treatment. 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 His sleep study was done over in [place] in May of 2010 and I have a copy of the report from that. He had total time in bed of 6.3 hours, but slept just 3.6 hours for a sleep efficiency of 56%. His oxygen saturation ran low, less than 90% for 35% of the recording time. There was loud snoring. On that study his AHI was 46. He was titrated in the sleep lab to a CPAP pressure of 8 cm of water, but this did not control his snoring. Presumably, he was auto titrated subsequent to that. But what pressures setting he eventually arrived at is uncertain. He did not have his CPAP machine with him at today's visit. MEDICATIONS CURRENT MEDICATIONS: Pravastatin 80 mg Naprosyn 500 mg twice a day as needed pain. Amlodipine 5 mg daily. Omeprazole 20 mg daily. Bupropion 150 mg twice a day. Sildenafil 25 mg as needed. Losartan/hydrochlorothiazide 100-25, 1 daily. Flonase 1 spray to each nostril daily. Hytrin 1 mg at bedtime. Glucosamine chondroitin 1 twice a day. Multivitamin with minerals 1 daily. Berwick-3 fish oil 500 mg 1 daily. Aspirin 81 mg daily. ALLERGIES ACETAMINOPHEN listed. Type of reaction uncertain. HEALTH HABITS: Has not been a cigarette smoker. Does use some alcoholic beverages. No regular use. Decaf coffee. PAST MEDICAL/SURGICAL HISTORY No surgeries listed. He has: Obesity. Essential hypertension. Obstructive sleep apnea. Dyslipidemia. A history of depression. History of dyspepsia, controlled on omeprazole. Recent abdominal ultrasound negative for aneurysm. Patient has untreated psoriasis and saw Dr. Cm in [place] regarding this in the past, but he did not want to go on any biologic agents. FAMILY HISTORY Mother with glaucoma. Female relatives with breast cancer. A sister with type 2 diabetes. Cousin with the restless legs syndrome. Otherwise, negative to the best of the patient's recollection. SOCIAL HISTORY . He and his have a home in [place]. The 3 daughters grown and out of the home, 2 in the area 1 in [place]. The patient is a [place] the area. 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 SYSTEMS REVIEW Weight loss as noted. He is wearing dentures. No cardiovascular system symptomatology admitted to. No episodes of transient focal neurologic deficit. No cold intolerance. No polyuria, or polydipsia. Nonocturnal dyspepsia. No morning headaches. He says that he gets restless sleep if he is nerved up a bout his job. No restless legs in the evening. No teeth grinding. No sleep talking, sleep walking, or acting out of dreams. PHYSICAL EXAMINATION VITAL SIGNS: Weight 144.0 kg which is down 6 kg since he had his sleep study in 2010. Height 172 cm.Body mass index 48.7 kg/m2. Blood pressure when I checked it 156/92, intake reading 164/100. Heart rate 84 and regular. Respirations even and unlabored at 16 per minute with oxygen saturation 97% on room air. GENERAL: This is an alert, oriented, pleasant and appropriate, very overweight, middle-aged, male. He was not yawning or showing other signs of hypersomnolence during the visit. HEENT: Head is normocephalic with no evidence of previous trauma and no retro or micrognathia. PERRL. EOMI with no nystagmus. No scleral icterus. Palpebral conjunctivae with good color. Ear canals patent with normal TMs. Oral cavity adequately hydrated. No lesions noted. He is wearing a full upper denture and presumably a lower one too although I did not ascertain this. No tonsillar, uvular or soft palate hypertrophy. Tongue protrudes slightly to the left with a grade 4 Mallampati index. No facial droop. NECK: Supple with a circumference of 54.3 cm with a fairly large lipoma on the posterior neck accounting for some of this. Neck veins flat. Negative HJR. No thyromegaly or thyroid nodules. No carotid bruits or decreased carotid pulsations. No submandibular, cervical, or supraclavicular lymphadenopathy. LUNGS: Clear to percussion and auscultation with symmetric and satisfactory air movement. CARDIAC: Exam with no pathologic sounds or LV lift. ABDOMEN: Normal bowel sounds, is nondistended, and is generally soft and nontender with no organomegaly or mass, epigastric bruit or palpable abdominal aortic pulsation. EXTREMITIES: No flank bruit on either side. No clubbing of the fingers. Trace to 1+ pretibial pitting edema bilaterally. Radial and pedal pulses are normal. DTRs are symmetrically subdued throughout with normal relaxation phase. SKIN: Severe generalized psoriasis. Anderson Sleepiness Scale score equals 1. IMPRESSION/REPORT/PLAN This 69-year-old male, presents with a background history of moderately severe obstructive sleep apnea for which he was on continuous positive airway pressure therapy in the past. Not currently on thistreatment related to reported resolution of snoring and daytime hypersomnolence after losing weight.He actually has not lost that much weight and I doubt very much that he no longer has the obstructive sleep apnea. Blood pressure remains significantly elevated. He has rather severe psoriasis which isnot being treated. PLAN: The patient will need to have another sleep study in order to satisfy [facility] and Medicare requirements. This was scheduled. After discussion, he agreed to a prescription for trazodone 100 mg that hecan take if needed for the sleep study. His intent is to try to do the sleep study without it. I will see him 1 to 2 weeks after that study to review the results, discuss sleep pathology identified, and decide on treatment. Note that we are avoiding Uriien because he said that he developed confusion when he took some sleeping medication in the remote past. Chester Payan M.D./pos cc: Yolanda Colón APRN, C.N.PFamilia [facility] in [address] [address] Anel Morgan D.C. [address] [place] [address] Electronically Signed By: CHESTER PAYAN MD On: 03/23/2015 08:29 AM Modified by and Electronically Signed by: CHESTER PAYAN MD On: 03/23/2015 08:29 AM Source: [facility] MHSDOLBEYNONRADSYS Document Id: [id number] ING MACHINE OPERATOR documented in this encounter Miscellaneous Notes Miscellaneous - Chester Payan M.D. - 03/18/2015 10:09 AM CST Ambulatory Patient Summary [address] [id number] Visit Information Name: FRANSICO MACDONALD [facility] Number: [id number] Current Date: 03/18/2015 10:09:20 Physicians Attending Provider: CHESTER PAYAN MD Primary Care Provider: YOLANDA COLÓN TRIPE COOKER FRANSICO MACDONALD has been given the following [...] nasal (fluticasone 50 mcg/inh nasal spray) 1 [place](s), Nasal, once a day glucosamine-chondroitin (Osteo Bi-Flex) 1 tablets, Oral, two times a day losartan-hydrochlorothiazide (losartan-hydrochlorothiazide 100 mg-25 mg oral tablet) 1 Tablet(s), Oral, once a day (Hyzaar) multivitamin with minerals (Centrum Silver Men's oral tablet) 1 Tablet(s), Oral, once a day naproxen (Naprosyn 500 mg oral tablet) 1 Tablet(s), Oral, two times a day as needed for pain omega-3 polyunsaturated fatty acids (Berwick-500 oral capsule) 1 cap, Oral, once a [...] cap, Oral, once a day (at bedtime) traZODone (traZODone 100 mg oral tablet) See Instructions 1 tab(s) PO prn at sleep lab if unable to fall asleep for sleep study New Routed to [address] [address] Stop Taking the Following Medications: Medication list as of 03-18-15 10:09 Attention: If you have any medications at [...] Electronically Signed By: CHESTER PAYAN MD Signed On:18-MAR-2015 10:04:57 Your Allergies & Intolerances Substance Reaction Symptoms Category Comments Tylenol Drug Your Problem List Problem Status Onset Comments Hypertension Essential (401.9) Active Hypercholesterolemia Active Obesity NOS Active Psoriasis NOS Active Your Upcoming Appointments Date Time Location Provider 04/07/2015 09:15 Yolanda Nunes NP Attention: Contact your local Clinic if further [...] if you dont have one. Go to [email or web address] and click on Create Your Account. Then, follow the directions to complete the online form. Youll be asked for your [facility] number which you can find at the top of this document. Your Goals/Additional instructions: Source: [facility] POWERCHART Document Id: [id number] ING MACHINE OPERATOR Miscellaneous - Chester Payan M.D. - 03/18/2015 10:09 AM CST Ambulatory Discharge Medication List [address] [id number] Visit Information Name: FRANSICO MACDONALD [facility] Number: [id number] Visit Date: 03/18/2015 10:09:19 Attending Provider: CHESTER PAYAN MD Primary Care Provider: YOLANDA COLÓN TRIPE COOKER FRANSICO MACDONALD MICAELA has been given the [...] nasal (fluticasone 50 mcg/inh nasal spray) 1 [place](s), Nasal, once a day glucosamine-chondroitin (Osteo Bi-Flex) 1 tablets, Oral, two times a day losartan-hydrochlorothiazide (losartan-hydrochlorothiazide 100 mg-25 mg oral tablet) 1 Tablet(s), Oral, once a day (Hyzaar) multivitamin with minerals (Centrum Silver Men's oral tablet) 1 Tablet(s), Oral, once a day naproxen (Naprosyn 500 mg oral tablet) 1 Tablet(s), Oral, two times a day as needed for pain omega-3 polyunsaturated fatty acids (Berwick-500 oral capsule) 1 cap, Oral, once a [...] cap, Oral, once a day (at bedtime) traZODone (traZODone 100 mg oral tablet) See Instructions 1 tab(s) PO prn at sleep lab if unable to fall asleep for sleep study New Routed to [address] [address] Stop Taking the Following Medications: Medication list as of 03-18-15 10:09 Attention: If you have any medications at [...] Electronically Signed By: CHESTER PAYAN MD Signed On:18-MAR-2015 10:04:57 Additional Information: Source: [employer] Document Id: [id number] ING MACHINE OPERATOR Candido - Chester Payan M.D. - 03/18/2015 10:00 AM CST Refrigeration Brazer/Solderer Instructions Refrigeration Brazer/Solderer Instructions Entered On: 03/18/2015 10:00 PILLING MACHINE OPERATOR Performed On: 03/18/2015 10:00 PILLING MACHINE OPERATOR by CHESTER PAYAN MD Refrigeration Brazer/Solderer Instructions General Instructions : Split Night CPAP at AHI > 5/Hr CHESTER PAYAN MD - 03/18/2015 10:00 PILLING MACHINE OPERATOR Source: [employer] Document Id: [id number] PILLING MACHINE OPERATOR!3 ING MACHINE OPERATOR Candido - Niyah Hartmann, R.M.A. - 03/18/2015 9:07 AM CST Anderson Sleepiness Scale Anderson Sleepiness Scale Entered On: 03/18/2015 9:07 PILLING MACHINE OPERATOR Performed On: 03/18/2015 9:07 PILLING MACHINE OPERATOR by NIYAH HARTMANN RMA Anderson Sleepiness Scale Anderson sitting and reading : No chance of dozing Anderson watching TV : Slight chance of dozing Anderson sitting in public : No chance of dozing Anderson passenger in car : No chance of dozing Anderson in a car stopped in traffic : No chance of dozing Anderson Lying down to rest : No chance of dozing Anderson sitting and talking : No chance of dozing Anderson sitting quietly after lunch : No chance of dozing Anderson Total Score : 1 NIYAH HARTMANN - 03/18/2015 9:07 PILLING MACHINE OPERATOR Source: [facility] POWERCHART Document Id: [id number] PILLING MACHINE OPERATOR!11 ING MACHINE OPERATOR Miscellaneous - Niyah Hartmann R.MSolange - 03/18/2015 9:02 AM CST Adult Registered Account Administrator Intake/History Adult Registered Account Administrator Intake/History Entered On: 03/18/2015 9:05 PILLING MACHINE OPERATOR Performed On: 03/18/2015 9:02 PILLING MACHINE OPERATOR by NIYAH HARTMANN [facility] Intake Chief Complaint : Referred by Adelina Colón History of DEVORA, needs clearance for DOT Temperature Core : 37.0 DegC(Converted to: 98.6 DegF) Peripheral Pulse Rate : 83 /min Respiratory Rate : 16 /min Systolic Blood Pressure : 164 mmHg (>HHI) Diastolic Blood Pressure : 100 mmHg (>HHI) NIBP Mean : 121 mmHg BP Location : Right upper extremity Blood Pressure Cuff Size : Large SpO2 : 97 % Oxygen Therapy : Room air Height : 172 cm(Converted to: 5 ft 8 inch(es), 68 inch(es)) Actual Weight : 144.0 kg(Converted to: 317 lb 7 oz) Weight Source : Standing scale Dosing Weight Clinic : 144 kg Clinic BSA : 2.62 Body Mass Index : 48.67 kg/m2 NIYAH HARTMANN [facility] - 03/18/2015 9:02 PILLING MACHINE OPERATOR General Info Information Given By : Patient Languages : Arabic Is Patient Female and 13-50 no hysterectomy : No NIYAH HARTMANN [facility] - 03/18/2015 9:02 PILLING MACHINE OPERATOR Subjective Pain Symptoms : No NIYAH HARTMANN [facility] - 03/18/2015 9:02 PILLING MACHINE OPERATOR Dependent Habits Smoking Status : Never smoker Tobacco 2A : No Alcohol Use : Yes NIYAH HARTMANN [facility] - 03/18/2015 9:02 PILLING MACHINE OPERATOR Caffeine Use Grid Caffeine Use : None Comments (Comment: mostly decaf coffee [NIYAH HARTMANN [facility] - 03/18/2015 9:02 PILLING MACHINE OPERATOR] ) NIYAH HARTMANN [facility] - 03/18/2015 9:02 PILLING MACHINE OPERATOR Recreational Drug Use Grid Drug Use : None NIYAH HARTMANN A - 03/18/2015 9:02 PILLING MACHINE OPERATOR Source: [facility] POWERCHART Document Id: [id number] PILLING MACHINE OPERATOR!35 ING MACHINE OPERATOR documented in this encounter Plan of Treatment Upcoming Encounters Date Type Specialty Care Team Description 02/11/2022 Appointment Laboratory Medicine Neli Hearn M.D. [address] [place] [address] [phone] (Wo rk) 02/14/2022 Office Visit Family Medicine Lilli Hearn M.D. [address] [place] [address] [phone] (Wo rk) documented as of this encounter Visit Diagnoses Not on filedocumented in this encounter
--- OUTSIDE RECORDS SUMMARY | 2021-12-28 10:02 | XMS_ITS | Encounter Summary ---
:1945 Author Organization [facility] Address [address] [place] [address] Care Team Providers Name Role Phone Unavailable Primary Care Provider Unavailable Encounter Details Date Type Department Care Team Description 04/09/2013 Hospital Encounter HX [facility] Heather Hoyt, SENIOR VISUAL DESIGNER, C.N.P. [address] [place] [phone] (Wo rk) Social History Tobacco Use Types [...] 1 to 4 times per year 11/2019 adventism services? 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 [address] [place] [address] [phone] (Wo rk) 02/14/2022 Office Visit Family Medicine Lilli Hearn M.D. [address] [place] [address] [phone] (Wo rk) documented as of this encounter Visit Diagnoses Not on filedocumented in this encounter
--- OUTSIDE RECORDS SUMMARY | 2021-12-28 10:02 | XMS_ITS | Encounter Summary ---
:1945 Author Organization [facility] Address [address] [place] [address] Care Team Providers Name Role Phone Unavailable Primary Care Provider Unavailable Encounter Details Date Type Department Care Team Description 04/07/2015 Hospital Encounter HX [facility] Jamie Payan M.D. 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 - 04/07/2015 12:00 AM CST [id number] Document Contains Addenda SLEEP STUDY REPORT TYPE OF SLEEP STUDY: Split night polysomnography. 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 He is therefore seeingme for a sleep medicine evaluation to determine whether or not he still needs to be on CPAP therapy and if so, what his pressure settings and mode of treatment should be. Note that at the recent consult visit with me his [place] sleepiness scale score was just 1. His blood pressure was 156/92 on medical therapy. His weight was 144.0 kg which is down 6 kg since his sleep study in 2010, height 172 cm, body mass index of 48.7 kg/m2, neck circumference 54.3 cm, Mallampati index grade 4. He did get a prescription for trazodone 100 mg by mouth which he brought to the sleep lab and did take it after he initially could not fall asleep without it. DIAGNOSTIC PORTION OF THE STUDY: A standard 18 channel polysomnography recording was acquired duringa night's sleep. Concurrent continuous audio and video recordings were acquired and available for review at the time of interpretation. Technical quality of the study was satisfactory for interpretation. Sleep occurred with the patient on his left side only during the diagnostic portion of the study. Attempts to sleep in other body positions were unsuccessful. Latency to sleep onset was 26.5 minutes with latency to persistent sleep 1 hour and 59 minutes. Total sleep time 125.5 minutes with sleep efficiency 55%, this being significantly reduced due to the sleep onset insomnia. There were obstructive respiratory events with most of these being obstructive hypopneas, much fewer complete obstructive apneas. There were also respiratory effort related arousals. The longest obstructive hypopnea was 52 seconds in duration, the longest obstructive apnea 22 seconds in duration, mean duration of the obstruc tive events was 23 seconds, composite apnea-hypopnea index was 41.6, and respiratory disturbance index 67.4 events per hour. The respiratory events led to oxygen desaturation, sometimes to frankly hypoxemic levels with sanya oxygen saturation being 79% and oxygen saturation less than 90% for 47.5% of total sleep time. Mean oxygen saturation during sleep was 90% which was also the awake baseline oxygen saturation, the patient having a fair amount of static hypoxemia in addition to that resulting fromthe obstructive events. An occasional central apnea was also documented. EEG arousal index was 65 per hour with 88% of the arousals being breathing event related, 11% movement related, and 1% of a misce llaneous type. Sleep architecture was significantly distorted related to the respiratory events with stage 1 sleep comprising 37% of total sleep time. Stage 2, stage 3, and rapid eye movement sleep comprised 53%, 8% and 2%, respectively. Latency to initial rapid eye movement sleep was prolonged at 151.5 minutes, this obviously having something to do with the sleep onset insomnia. There was no evidence of alpha-intrusion. Snoring up to loud levels of intensity was present approximately 75% of the time. There were periodic limb movements of sleep with a PLM index of 14 and the PLM arousal index of 7. There was no evidence of bruxism. There were no cardiac rhythm abnormalities with the sinus rate ranging between 48 and 78 beats per minute with a mean of 61 beats per minute. THERAPEUTIC PORTION OF STUDY: There were enough respiratory events the first part of the night for the patient to qualify for a split night study. Nasal CPAP was introduced at 5 cm of water and titrated upward gradually to 10 cm of water at which pressure there appeared to be satisfactory control of the respiratory events (AHI 0.6, RDI 2.5), snoring and hypoxemia with a sanya oxygen saturation 89% and the mean oxygen saturation improved to 92%. Patient spent most of the time sleeping on his right side during the therapeutic portion of the study and for a brief time on his left side at the end of the night. He did not have any supine sleep during the therapeutic portion of the study. Sleep architecture improved with stage 1 sleep dropping to 10% of total sleep time and a significant increase in rapid eye movement sleep being seen, this increasing to 30%. There was no motor activity other than eyemovements and respirations during the periods when he had rapid eye movement sleep. EEG arousal index dropped to 7 per hour. Periodic limb movements continued to be present but were less apt to cause EEG arousals. There continued to be no evidence of bruxism or cardiac rhythm abnormalities. There was no emergence of increased numbers of central apneas during the therapeutic portion of the study. FINAL IMPRESSION: The patient has moderately severe obstructive sleep apnea with AHI 41.6 and RDI 67.4 events per hour. There is significant hypoxemia due to a combination of dynamic and static oxygen desaturation, the former on the basis of his obstructive respiratory events. Snoring which was usually of moderate intensity but sometimes reported to be loud was present during the diagnostic portion of the study. Distorted sleep architecture with high EEG arousal index. An element of sleep onset insomnia possibly on a 1st night effect basis which did not respond promptly to the trazodone, althoughthis did eventually seem to work and his sleep efficiency during the therapeutic portion of the study increased significantly to 84%. Periodic limb movements of sleep sometimes with associated EEG arousals, although the arousals seemed to decrease when the patient received positive airway pressure therapy and had improvement in his sleep architecture and efficiency. PLAN: I will meet with the patient in the Sleep Disorders Clinic to review the results of this study, discuss his diagnosis of obstructive sleep apnea, and decide on treatment thereof. Weight reductionwill also be discussed as an adjunct in treating his sleep disorder breathing syndrome. We will alsoaddress the issues of his possible sleep onset insomnia and the periodic limb movements of sleep. ADDENDUM: Note that during the therapeutic portion of the study the electrophysiology technologist asked the patient to sleep on his back but the patient indicated that that was not possible because he had too much back pain when he tried to do so. Chester Payan M.D./gómez cc: Yolanda Colón APRN, C.N.PFamilia [facility] in [address] [address] Anel Morgan DC [address] [place] [id number] Electronically Signed By: CHESTER PAYAN MD On: 04/13/2015 07:51 AM Modified by and Electronically Signed by: CHESTER PAYAN MD On: 04/13/2015 07:45 AM Source: [facility] MHSDOLBEYNONRADSYS Document Id: [id number] CLUB HEAD INSPECTOR documented in this encounter Miscellaneous Notes Miscellaneous - Conversion, Historical Provider Ser - 04/07/2015 11:59 PM [employer] HEAD INSPECTOR Coding Summary-Paper Based CODING DATE: 04/15/2015 FINAL [facility] STATUS: * Discharged to Home or Self Care PAYOR: Medicare ADMIT DX: REASON FOR VISIT DX: FINAL DX: PRINCIPAL: G47.33 Obstructive sleep apnea (adult) (pediatric) SECONDARY: G47.61 Periodic limb movement disorder PROCEDURES DOCTOR NAME DATE NOTE: The code number assigned matches the documented diagnosis and / or procedure in the patient's chart. However, the narrative phrase printed from the coding software may appear abbreviated, or result in slightly different terminology. Coded By: KENDRA ROMERO Date Saved: 04/15/2015 02:53 pm Source: [facility] POWERCHART Document Id: [id number] documented in this encounter Plan of Treatment Upcoming Encounters Date Type Specialty Care Team Description 02/11/2022 Appointment Laboratory Medicine Neli Hearn M.D. [address] [place] [phone] (Stephon caldera) 02/14/2022 Office Visit Family Medicine Lilli Hearn M.D. [address] [place] [phone] (Stephon caldera) documented as of this encounter Visit Diagnoses Not on filedocumented in this encounter
--- OUTSIDE RECORDS SUMMARY | 2021-12-28 10:02 | XMS_ITS | Encounter Summary ---
:1945 Author Organization [facility] Address [address] [place] [address] Care Team Providers Name Role Phone Unavailable Primary Care Provider Unavailable Encounter Details Date Type Department Care Team Description 04/16/2015 Hospital Encounter HX [facility] Jamie Guzmán M.D. Social History Tobacco Use [...] or relatives? How often do you attend moravian or 1 to 4 times per year 11/2019 mandaen services? 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 encounter Last Filed Vital Signs Vital Sign Reading Time Taken Comments Blood Pressure 139/80 04/16/2015 8:46 AM JOURNEYMAN PRESSMAN Pulse 80 04/16/2015 8:46 AM JOURNEYMAN PRESSMAN Temperature - - Respiratory Rate 18 04/16/2015 8:46 AM JOURNEYMAN PRESSMAN Oxygen Saturation - - Inhaled Oxygen Concentration - - Weight 147 kg (323 lb 3.1 oz) 04/16/2015 8:46 AM JOURNEYMAN PRESSMAN Height 172 cm (5' 7.72) 04/16/2015 8:46 AM JOURNEYMAN PRESSMAN Body Mass Index 49.55 04/16/2015 8:46 AM JOURNEYMAN PRESSMAN documented in this encounter Medications at Time of Discharge Medication Sig Dispensed Refills Start Date End Date aspirin [address] tablet Take 81 mg by mouth. 0 GLUCOSAMINE/CHONDR NOOANN A Take 1 tablet by 0 2013 [...] encounter Progress Notes Chester Payan M.D. - 04/16/2015 8:39 AM CST [id number] SLEEP DISORDERS CLINIC VISIT NOTE CHIEF COMPLAINT/REASON FOR VISIT Review of split-night polysomnography. Discussion of obstructive sleep apnea. Decision making regarding treatment. NOTE: The visit was for discussion, counseling and coordination of care purposes only, involved approximately 20 minutes of [id number] contact time and did not involve repeat physical examination. 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 He had lost some weight and was hoping to be relieved of the burden to have to use the CPAP sleep apnea therapy, which he had, in fact, quit using for the most part for the last year and a half. He did not have any problem with excessive daytime sleepiness, scoring just 1 on the [place] survey, and claimed that his snoring had resolved with his weight loss. In order to deal with this situation, it was felt that he needed to have another in-lab sleep study. That took place on the evening of April 07, 2015. IMPRESSION/REPORT/PLAN The study reconfirmed that he has obstructive sleep apnea with his apnea- hypopnea index of 41.6 and his respiratory disturbance index of 67.4 events per hour. There was significant oxygen desaturation with a sanya of 79% and the oxygen saturation less than 90% for 47.5% of total sleep time. Snoring was moderate to loud in intensity. There was an element of sleep onset insomnia in spite of the patienttaking a dose of trazodone for the study. He was titrated with nasal CPAP to a pressure of 10 cm of water which, as it turns out, is the same pressure that he thinks he was on previously. Actually, when he had his sleep study back in 2010, he was titrated to a pressure of 8 cm of water at that time. Regardless, the CPAP at 10 cm of water controlled his obstructive respiratory events (AHI 0.6, RDI 2.5), snoring and hypoxemia satisfactorily. Sleep architecture improved significantly with stage 1 sleepdropping from 30% down to 10% and with significant increase in rapid eye movement sleep to 30% of total sleep time. There was no problem with central apneas emerging. These results were presented to the patient and he was allowed to ask questions, which were answeredto the best of my ability to the patient's apparent satisfaction. I then went on to discuss obstructive sleep apnea, including its pathophysiology, natural history, potential short-term and long-term co nsequences of nontreatment and treatment modalities that are available to him. He opted to remain onhis CPAP therapy and we will fax a prescription to his DME provider for this mode at 10 cm of water.Weight reduction as an adjunctive measure in dealing with his sleep disordered breathing syndrome was encouraged. I note that the patient's weight loss trend has reversed with his weight increased 2.6 kg today compared to what he weighed when I saw him on 03/18/2015. I will see the patient again in 2 months for a verification of compliance and efficacy visit with associated data card interrogation/analysis. We will also revisit the issues of insomnia and periodic limb movements of sleep at that visit. Chester Payan M.D./pos cc: Yolanda Colón APRN, C.N.P. [facility] in [address] [address] Anel Morgan Dc [address] [place] [phone] Electronically Signed By: CHESTER PAYAN MD On: 04/20/2015 07:20 PM Source: [facility] MHSDOLBEYNONRADSYS Document Id: [id number] NEYMAN PRESSMAN documented in this encounter Miscellaneous Notes Miscellaneous - Chester Payan M.D. - 04/16/2015 9:33 AM CST Ambulatory Patient Summary [address] [id number] Visit Information Name: FRANSICO MACDONALD [facility] Number: [id number] Current Date: 04/16/2015 09:33:35 Physicians Attending Provider: CHESTER PAYAN MD Primary Care Provider: YOLANDA COLÓN LOOPING MACHINE OPERATOR FRANSICO MACDONALD has been given the [...] nasal (fluticasone 50 mcg/inh nasal spray) 1 [place](s), Nasal, once a day glucosamine-chondroitin (Osteo Bi-Flex) 1 tablets, Oral, two times a day losartan-hydrochlorothiazide (losartan-hydrochlorothiazide 100 mg-25 mg oral tablet) 1 Tablet(s), Oral, once a day (Hyzaar) multivitamin with minerals (Centrum Silver Men's oral tablet) 1 Tablet(s), Oral, once a day naproxen (Naprosyn 500 mg oral tablet) 1 Tablet(s), Oral, two times a day as needed for pain omega-3 polyunsaturated fatty acids ([place]-500 oral capsule) 1 cap, Oral, once a [...] the Following Medications: Medication list as of 04-16-15 09:33 Attention: If you have any medications at [...] Electronically Signed By: CHESTER PAYAN MD Signed On:16-APR-2015 09:33:21 Your Allergies & Intolerances Substance Reaction Symptoms Category Comments Tylenol Drug Your Problem List Problem Status Onset Comments Hypertension Essential (401.9) Active Hypercholesterolemia Active Psoriasis NOS Active Morbid Obesity Body Mass Index (BMI) >40 Adult Active Your Upcoming Appointments Date Time Location Provider 06/12/2015 09:00 [facility] Attention: Contact your local Clinic if further [...] if you dont have one. Go to [email or web address] and click on Create Your Account. Then, follow the directions to complete the online form. Youll be asked for your [facility] number which you can find at the top of this document. Your Goals/Additional instructions: Source: [facility] POWERCHART Document Id: [id number] NEYMAN PRESSMAN Miscellaneous - Chester Payan M.D. - 04/16/2015 9:33 AM CST Ambulatory Discharge Medication List [address] [id number] Visit Information Name: FRANSICO MACDONALD [facility] Number: [id number] Visit Date: 04/16/2015 09:33:34 Attending Provider: CHESTER PAYAN MD Primary Care Provider: YOLANDA COLÓN LOOPING MACHINE OPERATOR FRANSICO MACDONALD has been given the [...] nasal (fluticasone 50 mcg/inh nasal spray) 1 [place](s), Nasal, once a day glucosamine-chondroitin (Osteo Bi-Flex) 1 tablets, Oral, two times a day losartan-hydrochlorothiazide (losartan-hydrochlorothiazide 100 mg-25 mg oral tablet) 1 Tablet(s), Oral, once a day (Hyzaar) multivitamin with minerals (Centrum Silver Men's oral tablet) 1 Tablet(s), Oral, once a day naproxen (Naprosyn 500 mg oral tablet) 1 Tablet(s), Oral, two times a day as needed for pain omega-3 polyunsaturated fatty acids (Lafayette-500 oral capsule) 1 cap, Oral, once a [...] the Following Medications: Medication list as of 04-16-15 09:33 Attention: If you have any medications at [...] Electronically Signed By: CHESTER PAYAN MD Signed On:16-APR-2015 09:33:21 Additional Information: Source: [facility] POWERCHART Document Id: [id number] NEYMAN PRESSMAN Miscellaneous - Niyah Hartmann, R.M.AFamilia - 04/16/2015 8:46 AM CST Adult Billing Manager Intake/History Adult Billing Manager Intake/History Entered On: 04/16/2015 8:48 JOURNEYMAN PRESSMAN Performed On: 04/16/2015 8:46 JOURNEYMAN PRESSMAN by NIYAH HARTMANN Intake Chief Complaint : Discuss sleep study results Peripheral Pulse Rate : 80 /min Respiratory Rate : 18 /min Systolic Blood Pressure : 139 mmHg Diastolic Blood Pressure : 80 mmHg NIBP Mean : 100 mmHg BP Location : Right upper extremity Blood Pressure Cuff Size : Large SpO2 : 94 % Oxygen Therapy : Room air Height : 172 cm(Converted to: 5 ft 8 inch(es), 68 inch(es)) Actual Weight : 146.6 kg(Converted to: 323 lb 3 oz) Weight Source : Standing scale Dosing Weight Clinic : 146.6 kg Clinic BSA : 2.65 Body Mass Index : 49.55 kg/m2 NIYAH HARTMANN - 04/16/2015 8:46 JOURNEYMAN PRESSMAN General Info Information Given By : Patient Languages : Egyptian Is Patient Female and 13-50 no hysterectomy : No NIYAH HARTMANN - 04/16/2015 8:46 JOURNEYMAN PRESSMAN Subjective Pain Symptoms : NIYAH Medrano - 04/16/2015 8:46 JOURNEYMAN PRESSMAN Dependent Habits Smoking Status : Never smoker Tobacco 2A : No Tobacco Use/Currently Using : No Tobacco Use/Last 30 Days : No Tobacco Use/Last 12 months : No NIYAH HARTMANN - 04/16/2015 8:46 JOURNEYMAN PRESSMAN Caffeine Use Grid Caffeine Use : None NIYAH HARTMANN [facility] - 04/16/2015 8:46 JOURNEYMAN PRESSMAN Recreational Drug Use Grid Drug Use : None NIYAH HARTMANN [facility] - 04/16/2015 8:46 JOURNEYMAN PRESSMAN Source: [facility] Sarta Document Id: [id number] JOURNEYMAN PRESSMAN!36 NEYMAN PRESSMAN documented in this encounter Plan of Treatment Upcoming Encounters Date Type Specialty Care Team Description 02/11/2022 Appointment Laboratory Medicine Neli Hearn M.D. [address] [place] [phone] (Stephon caldera) 02/14/2022 Office Visit Family Medicine Lilli Hearn M.D. [address] [place] [phone] (Stephon caldera) documented as of this encounter Visit Diagnoses Not on filedocumented in this encounter
--- OUTSIDE RECORDS SUMMARY | 2021-12-28 10:02 | XMS_ITS | Encounter Summary ---
:1945 Author Organization [facility] Address [address] [place] [address] Care Team Providers Name Role Phone Unavailable Primary Care Provider Unavailable Encounter Details Date Type Department Care Team Description 04/04/2013 Hospital Encounter HX [facility] RESIDENT DIRECTOR Wendy Colón, FILLER LEAF CUTTER LONG, C.N.P. 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 0 aspirin 81 mg capsule Take 1 tablet by 0 07/16/19 11 01/09/2018 mouth daily. documented as of this encounter Progress Notes Crystal Henson, RDN, LD - 04/04/2013 10:21 AM CST CLINICAL NUTRITION - Initial Assessment. - Pt seen 04/04/13 - charted on 04/05/13 REASON FOR VISIT: weight management Referring provider: Yolanda Colón NP Total Time: 60 minutes, 60 minutes spent in counseling and coordination of care. RECOMMENDATIONS/COMMUNICATION TO REFERRING PROVIDER Decrease intake of foods high in calories and fat - particually snack foods and desserts NUTRITION ASSESSMENT 67 year old man in for nutrition education regarding weight management. He has been wanting to lose weight for quite sometimes and feels that it is now time to start. He has meet with a RD before and he didnt feel that it worked for him then. He is very concerned as his weight is causing issues with pain and he does not want to get diabetes Nutrition History: Pt. stated that typical day involves an early breakfast of oatmeal, banana; lunch: he is working and will sometimes skip, sometimes will have a sandwich with yogurt; Dinner: He cooksat home and will generally have a meat, vegetable and a starch. 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 He states that he will not have anything after dinner and he is often times feeling very hungry. He did admit that he will snack sometimes throughout the day due to cravings, especially at night when he is watching TV. Fluid intake: Patient drinks juice and milk throughout the day - feels that he goes through a gallonof milk in 2 days. He also states that he drinks a lot of water throughout the day. Weight history: About 5 years ago patient weighed about 230 lbs which is where he would like to be. 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 Anthropometric data: Height: 172 cm BMI: 50.4 kg/m2 (based on 149.3 kg kg) Current weight: 149 kg Date of current weight: 04/05/2013 ELW: 69.2 kg Estimated needs: 7507-6560 calories/day (Green Galt basal plus 20%) Estimated needs using a height of 172 cm and weight of ELW 70 kg. NUTRITION DIAGNOSIS Excessive energy intake (NI-1.5) related to lack of prior nutritional education regarding appropriate caloric intake as evidenced by Pt. not realizing the calorie content in 1 glass of milk and consuming apx 8 glasses/day NUTRITION PLAN Decrease calorie intake to lose weight INTERVENTION Small frequent meals: Encouraged patient to eat healthy snacks between meals so he is not too hungrywhen it is time to eat resulting in overeating. Nutrition education: consistency and timing of meals, self-monitoring (food or activity records) Discussed macronutrient content of food and the role of calories in the diet. Helped identify foods thatmay be contributing excess caloric intake in the patient's current diet. Also, explained the role ofcalorie filled beverages in the diet and the importance of reducing these beverages to meet recommendations. Talked about how to achieve satiety while reducing overall calorie intake. Discussed label reading and how to control portions while using the plate method. Covered healthy cooking techniques. Discussed what moderation would mean for the patient and the importance of slow gradual change to avoid overeating driven by deprivation. Discussed hunger and satiety and the importance of honoring hunger while trying to lose weight and assessing reasons for eating. MONITORING AND EVALUATION Will follow up in 4 weeks to evaluate the patients current nutrition status and education needs. Will review documentation and interview the patient to monitor progress and measure outcomes. Additionaleducation and counseling will be provided as needed. Electronically Signed By: CRYSTAL BENNETT On: 04/05/2013 10:22 AM Source: [facility] POWERCHART Document Id: [id number] TRICAL WORKER documented in this encounter Plan of Treatment Upcoming Encounters Date Type Specialty Care Team Description 02/11/2022 Appointment Laboratory Medicine Neli Hearn M.D. [address] [facility] [place] [phone] (Stephon caldera) 02/14/2022 Office Visit Family Medicine Lilli Hearn M.D. [address] [facility] [place] [phone] (Stephon caldera) documented as of this encounter Visit Diagnoses Not on filedocumented in this encounter
--- OUTSIDE RECORDS SUMMARY | 2021-12-28 10:02 | XMS_ITS | Encounter Summary ---
:[address] [facility] Address [address] [place] [address] Care Team Providers Name Role Phone Unavailable Primary Care Provider Unavailable Encounter Details Date Type Department Care Team Description 07/01/2015 Hospital Encounter HX [facility] Jamie Payan M.D. 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 - 07/01/2015 2:36 PM CDT [id number] CHIEF COMPLAINT/REASON FOR VISIT Verification of compliance and efficacy on nasal CPAP therapy. HISTORY OF PRESENT ILLNESS The visit was for discussion, counseling, and coordination of care purposes only and did not involveany repeat physical examination. Approximately 20 minutes of necn-hs-djhy contact time for the visit. This 69-year-old male, who has been on longstanding positive airway pressure therapy for his moderately severe obstructive sleep apnea saw me for a sleep medicine consultation back in February, because he was hoping to be allowed to remain off of his CPAP therapy, which he had discontinued because hehad lost weight and felt that there was no continued reason for that treatment. A repeat polysomnography study was done in the sleep lab and reconfirmed that he still had obstructive sleep apnea and that if anything it was somewhat worse than it had been in the past with AHI 41.6 and RDI 67.4 events per hour. We restarted his CPAP therapy at a fixed nasal CPAP pressure of 10 cm of water, and I am seeing him today for his verification visit. He says that the sleep machine that he is using was not replaced with the recent repeat sleep study. He says that he has been using it for at least 3 years without having any data card analysis. At some point in the past, he submitted his smart card from [employer] and was told that it was not collecting data and it was replaced. From what I could gather from talking to him, the replacement smart card has never been removed and analyzed. We did that todayand there was no data on the card. He says that his current treatment is being tolerated well with no facial skin irritation or nasal stuffiness. The machine is not noisy and there is not any major airleak problem. His indicates that it suppresses his snoring well. She has not specifically commen deidre as to whether not he has any apneic episodes while using the treatment. He feels that there has been some improvement in his daytime alertness and energy. Although, he really did not have much of aproblem with that even when he was off treatment when I saw him back in February. [place] SleepinessScale survey today is 0 compared to 1 prior to putting him back on treatment. He says that he is using the treatment every night and able to keep it on throughout the night. We wanted to follow up on the periodic limb movements of sleep and insomnia. He said that neither 1 of these was a clinical problem for him at the present time. 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 He did not have his recertification card with him when he saw me today. Because his data card did not contain information at today's visit, he was advised that he needs to take his sleep machine with a card in place down to his DME provider, which is [facility] in [place]. He h ad told me that he would do that and that they would then send me a report after they accessed the data. Providing everything looks okay on that data assessment, I will see him again in 1 year for an annual sleep apnea update. His weight was up 2.1 kg, and this was pointed out to him and it was advised that he double down on efforts to control his weight. Chester Payan M.D./pos cc: Yolanda Colón APRN, C.N.P. [facility] [place] [address] Electronically Signed By: CHESTER PAYAN MD On: 07/04/2015 10:15 AM Source: [facility] MHSDOLBEYNONRADSYS Document Id: [id number] documented in this encounter Procedure Notes Chester Payan M.D. - 08/30/2015 12:00 AM CDT [id number] Home Nasal CPAP Data Interrogation/Analysis: April 22, 2015 to July 08, 2015. This 69-year-old male is on home nasal CPAP at what was thought to be 10 cm of water. When I saw himfor a verification of compliance and efficacy visit on July 01, 2015. At that time, we were unable to obtain any data off his smart card. He was advised to bring his equipment into his DME provider. [employer] in [facility] and have them extract the data and send it to me. The report indicates that the patient is actually on an Auto Pap system with a pressure range of 4 to 15 cm of water. Of the available 78 days the device was used all 78 days and for greater than or equal to 4 hours on 76 days (97.4%). Average usage for days used was 6 hours and 25 minutes. Average apnea-hypopnea index during usage was 0.7 events per hour. Average 95% leak was 12.0 L/minute. Average 95% pressure was 10.9 cm of water. IMPRESSION/REPORT/PLAN With the patient on the auto Pap system with a pressure range of 4 to 15 cm water, there is excellent compliance. Excellent efficacy (pre treatment AHI 41.6 events per hour) and satisfactory air leak. Average 95% pressure 10.9 cm of water. PLAN: Patient can continue on the auto Pap system with the current pressure range or be switched to a fixed pressure CPAP at 11 cm of water. His next annual sleep apnea update with me will be due approximately June 30, 2016. Chester Payan M.D./pos Electronically Signed By: CHESTER PAYAN MD On: 09/01/2015 11:10 AM Source: [facility] MHSDOLBEYNONRADSYS Document Id: [id number] documented in this encounter Miscellaneous Notes Miscellaneous - Chester Payan M.D. - 07/01/2015 3:28 PM CDT Ambulatory Patient Summary [facility] [place] [address] [place], [place] [phone] Visit Information Name: FRANSICO MACDONALD [facility] Number: [id number] Current Date: 07/01/2015 15:28:58 Physicians Attending Provider: CHESTER PAYAN MD Primary Care Provider: YOLANDA COLÓN TOOLING ENGINEERING TECH FRANSICO MACDONALD has been given the following [...] nasal (fluticasone 50 mcg/inh nasal spray) 1 [place](s), Nasal, once a day glucosamine-chondroitin (Osteo Bi-Flex) 1 tablets, Oral, two times a day losartan-hydrochlorothiazide (losartan-hydrochlorothiazide 100 mg-25 mg oral tablet) 1 Tablet(s), Oral, once a day (Hyzaar) multivitamin with minerals (Centrum Silver Men's oral tablet) 1 Tablet(s), Oral, once a day naproxen (Naprosyn 500 mg oral tablet) 1 Tablet(s), Oral, two times a day as needed for pain omega-3 polyunsaturated fatty acids (Arcadia-500 oral capsule) 1 cap, Oral, once a [...] the Following Medications: Medication list as of 07-01-15 15:28 Attention: If you have any medications at [...] Electronically Signed By: CHESTER PAYAN MD Signed On:01-JUL-2015 15:28:46 Your Allergies & Intolerances Substance Reaction Symptoms [...] you dont have one. [facility] to [email or web address] and click on Create Your Account. Then, follow the directions to complete the online form. Youll be asked for your [facility] number which you can find at the top of this document. Your Goals/Additional instructions: Source: [facility] POWERCHART Document Id: [id number] Miscellaneous - Chester Payan M.D. - 07/01/2015 3:28 PM CDT Ambulatory Discharge Medication List [facility] [address] [phone] Visit Information Name: FRANSICO MACDONALD [facility] Number: [id number] Visit Date: 07/01/2015 15:28:58 Attending Provider: CHESTER PAYAN MD Primary Care Provider: YOLANDA COLÓN NP FRANSICO [...] nasal (fluticasone 50 mcg/inh nasal spray) 1 [place](s), Nasal, once a day glucosamine-chondroitin (Osteo Bi-Flex) 1 tablets, Oral, two times a day losartan-hydrochlorothiazide (losartan-hydrochlorothiazide 100 mg-25 mg oral tablet) 1 Tablet(s), Oral, once a day (Hyzaar) multivitamin with minerals (Centrum Silver Men's oral tablet) 1 Tablet(s), Oral, once a day naproxen (Naprosyn 500 mg oral tablet) 1 Tablet(s), Oral, two times a day as needed for pain omega-3 polyunsaturated fatty acids (Arcadia-500 oral capsule) 1 cap, Oral, once a [...] the Following Medications: Medication list as of 07-01-15 15:28 Attention: If you have any medications at [...] Electronically Signed By: CHESTER PAYAN MD Signed On:01-JUL-2015 15:28:46 Additional Information: Source: [facility] MediaLifTV Document Id: [id number] [place] - Veronica Kumar R.N. - 07/01/2015 3:06 PM CDT [place] Sleepiness Scale [place] Sleepiness Scale Entered On: 07/01/2015 15:06 CDT Performed On: 07/01/2015 15:06 CDT by VERONICA KUMAR RN [place] Sleepiness Scale [place] sitting and reading : No chance of dozing [place] watching TV : No chance of dozing [place] sitting in public : No chance of dozing [place] passenger in car : No chance of dozing [place] in a car stopped in traffic : No chance of dozing [place] Lying down to rest : No chance of dozing [place] sitting and talking : No chance of dozing [place] sitting quietly after lunch : No chance of dozing [place] Total Score : 0 VERONICA KUMAR RN - 07/01/2015 15:06 CDT Source: [facility] [employer] Document Id: [id number] CDT!11 Candido - Veronica Kumar RRoslyn - 07/01/2015 2:57 PM CDT 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 Temperature Core : 37.6 DegC(Converted to: 99.7 DegF) Peripheral Pulse Rate : 86 /min Respiratory Rate : 20 /min Systolic Blood Pressure : 153 mmHg (HI) Diastolic Blood Pressure : 87 mmHg NIBP Mean : 109 mmHg BP Location : Right upper extremity Blood Pressure Cuff Size : Large SpO2 : 92 % (LOW) Oxygen Therapy : Room air Height : 170 cm(Converted to: 5 ft 7 inch(es), 67 inch(es)) Actual Weight : 146.1 kg(Converted to: 322 lb 2 oz) Weight Source : Standing scale Dosing Weight Clinic : 146.1 kg Clinic BSA : 2.63 Body Mass Index : 50.55 kg/m2 VERONICA KUMAR RN - 07/01/2015 14:57 CDT General Info Information Given By : Patient Languages : Mohawk Is Patient Female and 13-50 no hysterectomy : VERONICA Rodriguez RN - 07/01/2015 14:57 CDT Subjective Pain Symptoms : VERONICA Rodriguez RN - 07/01/2015 14:57 CDT Dependent Habits Smoking Status : Never smoker Tobacco 2A : No Tobacco Use/Currently Using : No Tobacco Use/Last 30 Days : No Tobacco Use/Last 12 months : VERONICA Rodriguez RN - 07/01/2015 14:57 CDT Caffeine Use Grid Caffeine Use : None VERONICA KUMAR RN - 07/01/2015 14:57 CDT Recreational Drug Use Grid Drug Use : None VERONICA KUMAR RN - 07/01/2015 14:57 CDT Source: [facility] POWERCHART Document Id: [id number] CDT!37 documented in this encounter Plan of Treatment Upcoming Encounters Date Type Specialty Care Team Description 02/11/2022 Appointment Laboratory Medicine Neli Hearn M.D. [address] [place] [phone] (Stephon caldera) 02/14/2022 Office Visit Family Medicine Lilli Hearn M.D. [address] [place] [address] (Wo rk) documented as of this encounter Visit Diagnoses Not on filedocumented in this encounter
--- OUTSIDE RECORDS SUMMARY | 2021-12-28 10:02 | XMS_ITS | Encounter Summary ---
:1945 Author Organization [facility] Address [address] [place] [address] Care Team Providers Name Role Phone Unavailable Primary Care Provider Unavailable Encounter Details Date Type Department Care Team Description 07/15/2013 [facility] Cast[facility] M .[facility] Social History Tobacco Use Types Packs/Day Years [...] at Date Recorded Male 04/20/2021 3:56 PM [employer] documented as of this encounter Last Filed Vital Signs Vital Sign Reading Time Taken Comments Blood Pressure 159/86 07/15/2013 11:21 AM CDT Pulse 84 07/15/2013 11:21 AM CDT Temperature - - Respiratory Rate 16 07/15/2013 11:21 AM CDT Oxygen Saturation - - Inhaled Oxygen Concentration - - Weight 154 kg (339 lb 11.7 oz) 07/15/2013 10:02 AM CDT Height 172 cm (5' 7.72) 07/15/2013 11:33 AM CDT Body Mass Index 52.09 07/15/2013 10:02 AM CDT documented in this encounter Medications [...] mouth daily. documented as of this encounter H&P Notes Nate Valentin M.D. - 07/15/2013 9:54 AM CDT [id number] Dear Yolanda: Thank you for scheduling Fransico for a colonoscopy. This is a followup colonoscopy, although on further inquiry to him, his previous test was a sigmoidoscopy. He has no personal history of polyps, buthe does have a family history of colon or rectal polyps. I see that you did a comprehensive exam on February 28, 2013, that is outside the 30-day window for what we need, so this is a complete H and P. I have reviewed the past notes from you and his history. He has had no change in his bowel habits. He thinks he is in good health currently. No fevers, chills, sweats. He does complain that intermittently, on and off, he has pain after bowel movements with spotting of blood sometimes. He describes that pain as a burning sensation. ALLERGIES: TYLENOL. MEDICATIONS: Aspirin 81 mg a day. Bupropion SR 150 mg every 12 hours. Centrum Silver daily. Fluticasone 50 mcg inhaler as directed. Hydrochlorothiazide 25 mg a day. Hytrin 1 mg at bedtime. Losartan 100 mg a day. Naprosyn 500 mg 2 times a day as needed for pain. Omeprazole 20 mg per day. Osteo Bi-Flex 2 times a day. Pravastatin 80 mg at bedtime. PAST MEDICAL HISTORY: Hypertension. Hyperlipidemia. Anxiety. Benign prostatic hypertrophy. Reflux. Obesity with a BMI documented at 52. PAST PROCEDURAL HISTORY: Recent history of coronary CT and cardiology visits. Coronary CT is consistent with nonobstructive coronary artery atherosclerosis, mild, in the range of 25% to 49%. This is consistent with his cardiac workup recently. This was done because of chest, flank and upper abdominal pain. PHYSICAL EXAMINATION: GENERAL: He appears his stated age. Excellent historian. VITAL SIGNS: His temperature is 36.7. His heart rate is 75, respirations 18, blood pressure 175/83, satting 96% on room air. Height of 172 cm, with a weight of 154 kg, giving him a body mass index of 52. He is a nonsmoker. HEENT: Trachea is midline. Speech is clear and precise. NECK: No thyromegaly. No cervical adenopathy. CHEST: Clear to auscultation. HEART: Regular rate and rhythm. ABDOMEN: Obese, soft, nontender, nondistended. IMPRESSION: He is an ASA 2 and a Mallampati 3. Risks and benefits of the procedure were discussed with him, along with the risks and benefits of sedation. He understands these. He freely signs the consent. He is an adequate risk and will proceed with the planned colonoscopy with sedation. Nate Valentin M.D./pos cc: Yolanda Colón C.N.P. Electronically Signed By: NATE VALENTIN MD On: 07/15/2013 01:34 PM Source: [facility] [email or web address] Document Id: [id number] documented in this encounter Procedure Notes Marry Guzmán, R.N. - 07/15/2013 10:02 AM CDT Preprocedure Checklist Preprocedure Checklist Entered On: 07/15/2013 10:03 CDT Performed On: 07/15/2013 10:02 CDT by MARRY GUZMÁN RN Checklist Last Fluid Intake : 07/15/2013 7:00 CDT Last Food Intake : 07/13/2013 20:00 CDT MARRY GUZMÁN RN - 07/15/2013 10:02 CDT Surgery Prep Grid Home Prep Complete : Yes Wearing Patient Gown : Yes Voided application packaging consultant to procedure : Yes MARRY GUZMÁN RN - 07/15/2013 10:02 CDT Patient Rights Grid Blood Consent Signed : NA Surgical/Procedure Consent Signed : Yes MARRY GUZMÁN RN - 07/15/2013 10:02 CDT Family Location : waiting room MARRY GUZMÁN RN - 07/15/2013 10:02 CDT Checklist II Patient Safety Grid ID Band on and Verified : Yes Procedure/Site Verified by Patient/Family : Yes Procedure/Site Verified by RN : Yes Procedure/Site Verified by Physician : Yes MARRY GUZMÁN RN - 07/15/2013 10:02 CDT RN Who Verified Site : MARRY GUZMÁN RN Physician Who Verified Site : NATE VALENTIN MD, KRISTI M RN - 07/15/2013 10:02 CDT Advance Directive Advanced Directives : No Advance Directive Additional Information : Yes MARRY GUZMÁN RN - 07/15/2013 10:02 CDT Vital Signs Temperature Core : 36.7 DegC(Converted to: 98.1 DegF) Peripheral Pulse Rate : 75 /min Respiratory Rate : 18 /min Systolic Blood Pressure : 175 mmHg (>HHI) Diastolic Blood Pressure : 83 mmHg NIBP Mean : 114 mmHg SpO2 : 96 % Oxygen Therapy : Room air Height : 172 cm(Converted to: 5 ft 8 inch(es)) Actual Weight : 154.1 kg Actual Weight Conversion to Pounds : 339.02 lb Body Mass Index : 52.09 kg/m2 MARRY GUZMÁN RN - 07/15/2013 10:02 CDT [facility] Document Id: [id number] CDT!36 Nate Valentin M.D. - 07/15/2013 12:00 AM CDT 1RPT DATE: 07/15/2013 PREPROCEDURE DIAGNOSIS: Screening colonoscopy. POSTPROCEDURE DIAGNOSIS: Normal screening colonoscopy. PROCEDURE: Complete flexible colonoscopy. SEDATION: 1 mg of Versed and 100 mcg of fentanyl. SURGEON: Nate Valentin MD START TIME: 10:30. CECAL INTUBATION: 10:41. COMPLETION: 10:58, for a withdrawal time of 17 minutes. FINDINGS: Excellent prep. No polyps, lesions or other abnormalities. Rectal fissure without evidenceof active hemorrhoids. We discussed the risks and benefits with the patient. The risks include but are not limited to bleeding, infection, perforation, and the sedation risks. Perforation risk ranges between 1:1000 and 1:10,000 and may lead to emergency surgery. The sedation risks can include major respiratory or cardiac events including . The patient freely signs the consent and wishes to have the procedure performed. Bowel prep was completed and the patient received an educational pamphlet prior to this visit. DESCRIPTION OF THE PROCEDURE: In the colonoscopy suite, after identifying the patient and the planned procedure with the patient, the staff, and myself, and confirming this with the signed consent, thepatient was placed in the left lateral recumbent position. Sedation was introduced. Digital rectal and external exam were performed. The scope was passed into the rectal vault. Retroflexed view with the scope. Photo was taken. The scope was then passed throughthe sigmoid, up the descending, across the transverse, down the ascending, intubating the cecum, confirming it by anatomy, percussion, and transillumination. A photograph of it was taken. Slow withdrawal of the scope; total exam of the colon was performed with the above findings and or procedures. RECOMMENDATIONS: Recommended followup will be 10 years based on these results, but due to his upper abdominal discomfort, I would recommend that he get a right upper quadrant ultrasound. We have arranged that for today and we will review those results when they are available and call him. Nate Valentin M.D./pos cc: Yolanda Colón C.N.P. Electronically Signed By: NATE VALENTIN MD On: 07/15/2013 01:34 PM Source: [facility] [email or web address] Document Id: [id number] documented in this encounter Nursing Notes Nate Valentin M.D. - 07/15/2013 10:53 AM CDT Ambulatory Patient Education The following Patient Education Materials have been given to the patient: Patient Education Materials: Source: [facility] POWERCHART Document Id: [id number] Marry Guzmán R.N. - 07/15/2013 10:03 AM CDT Day Surgery Admission History/Asmt Adult Day Surgery Admission History/Asmt Adult Entered On: 07/15/2013 10:03 CDT Performed On: 07/15/2013 10:03 CDT by MARRY GUZMÁN RN General Info Preferred Name : jamarcus Admitted From : Non-Health Care Facility Point of Origin Languages : Slovenian MARRY GUZMÁN RN - 07/15/2013 10:03 CDT Nutrition Nutrition Risk Factors by History Adult : None MARRY GUZMÁN RN - 07/15/2013 10:03 CDT Home Environment Current Daily Living Assistance : None MARRY GUZMÁN RN - 07/15/2013 10:03 CDT Dependent Habits Tobacco Use/Currently Using : No Smoking Status : Former smoker MARRY GUZMÁN RN - 07/15/2013 10:03 CDT Tobacco Use Grid Last Use : 40 YEARS AGO MARRY GUZMÁN RN - 07/15/2013 10:03 CDT Psychosocial Adult Domestic Abuse Concerns : None Sabianist Preference : No qualifying data available. MARRY GUZMÁN RN - 07/15/2013 10:03 CDT Advance Directive Advanced Directives : No Advance Directive Additional Information : Yes MARRY GUZMÁN RN - 07/15/2013 10:03 CDT Educ Needs Patient/Family Education Needs : Activity limitations/expectations, Disease process, Nutrition/Diet,Pain management, Postoperative instructions, Preoperative instructions MARRY GUZMÁN RN - 07/15/2013 10:03 CDT Learning Style Preference Adult Grid Patient : Verbal explanation, Printed materials Family : Verbal explanation, Printed materials MARRY GUZMÁN RN - 07/15/2013 10:03 CDT Psycho/Emotional Pain Symptoms : No MARRY GUZMÁN RN - 07/15/2013 10:03 CDT Peripheral IV Peripheral IV Assess/Intervention Grid Peripheral IV #1 IV Activity : Start, Saline lock Number of Attempts : 2 Date of Insertion : 07/15/2013 CDT IV Site : Hand Laterality : Left Catheter Size : 20 Site Condition : No complications Dressing/ Activity : Dry, Transparent Flow/ Patency : No complications MARRY GUZMÁN RN - 07/15/2013 10:22 CDT [facility] Document Id: [id number] CDT!13 documented in this encounter Miscellaneous Notes Miscellaneous - Aleja Mullen R.N. - 07/15/2013 11:33 AM CDT Adult Postprocedure Assessment Adult Postprocedure Assessment Entered On: 07/15/2013 11:42 CDT Performed On: 07/15/2013 11:33 CDT by ALEJA MULLEN RN Vital Signs Height : 172 cm(Converted to: 5 ft 8 inch(es)) ALEJA MULLEN RN - 07/15/2013 11:33 CDT General Level of Consciousness : Alert Orientation : Oriented x 3 Skin Color : Normal for ethnicity Skin Description : Dry, Normal Skin Temperature : Warm Pain Symptoms : No ALEJA MULLEN RN - 07/15/2013 11:33 CDT Respiratory Respiratory Pattern : Regular Respirations : Unlabored ALEJA MULLEN RN - 07/15/2013 11:33 CDT GI/ Nausea Symptoms : No Passing Flatus : Yes ALEJA MULLEN RN - 07/15/2013 11:33 CDT Peripheral IV Peripheral IV Assess/Intervention Grid Peripheral IV #1 IV Activity : Discontinue Number of Attempts : 2 Date of Insertion : 07/15/2013 CDT IV Site : Hand Laterality : Left Catheter Size : 20 ALEJA MULLEN RN - 07/15/2013 11:33 CDT (Comment: catheter tip intact [ALEJA MULLEN RN - 07/15/2013 11:33 CDT] ) Activity Patient Position : High Briceno's Activity Status ADL : Ambulating in urbano, Bathroom privileges Activity Assistance : Stand-by assistance Assistive Device : None Ambulation Distance : 25 m Ambulation Patient Effort : Good ALEJA MULLEN RN - 07/15/2013 11:33 CDT Perez Perez Agitation Sedation Scale (RASS) : Alert and calm RASS Score : 0 ALEJA MULLEN RN - 07/15/2013 11:33 CDT Education General Patient Education [employer] Topics : Discharge instructions/Medication list (Comment: Patient tolerated recovery well. Up to thebathroom and passed flatus. Remains NPO for ultrasound at 1230 today. C/o having a slight headache. Dressed and discharged to outpt to see Dr. Valentin. Gus called and updated on status. [ALEJA MULLEN RN - 07/15/2013 11:33 CDT] ) Individuals Taught : Patient Barriers to Learning : None evident Teaching Method : Explanation, Printed materials Teaching Evaluation : Verbalizes understanding ALEJA MULLEN RN - 07/15/2013 11:33 CDT [facility] Document Id: [id number] CDT!43 Miscellaneous - Aleja Mullen R.N. - 07/15/2013 11:21 AM CDT Adult Postprocedure Assessment Adult Postprocedure Assessment Entered On: 07/15/2013 11:33 CDT Performed On: 07/15/2013 11:21 CDT by ALEJA MULLEN RN Vital Signs Peripheral Pulse Rate : 84 /min Respiratory Rate : 16 /min Systolic Blood Pressure : 159 mmHg (HI) Diastolic Blood Pressure : 86 mmHg NIBP Mean : 110 mmHg BP Location : Left upper extremity SpO2 : 92 % (LOW) Oxygen Saturation Monitoring Frequency : Continuous Oxygen Therapy : Room air Height : 172 cm(Converted to: 5 ft 8 inch(es)) ALEJA MULLEN RN - 07/15/2013 11:21 CDT Cardiovascular Heart Rhythm : Regular ALEJA MULLEN RN - 07/15/2013 11:21 CDT Respiratory Respiratory Pattern : Regular Respirations : Unlabored ALEJA MULLEN RN - 07/15/2013 11:21 CDT GI/ Nausea Symptoms : No Passing Flatus : Yes ALEJA MULLEN RN - 07/15/2013 11:21 CDT Activity Patient Position : High Briceno's ALEJA MULLEN RN - 07/15/2013 11:21 CDT PARSAP Activity Status : Moves 4 extremities voluntarily or on command Dressing : None Respiratory Component : Able to deep breathe and cough freely Pain : Pain free Circulation Component : BP 20% of preanesthetic level Ambulation : Able to stand up and walk straight Consciousness : Fully awake Fasting and Feeding : Able to drink fluids Oxygen Saturation - Sedation : Can maintain > 92% on room air Urine Output, PARSAP : Has voided PARSAP Score : 20 ALEJA MULLEN RN - 07/15/2013 11:21 CDT Perez Perez Agitation Sedation Scale (RASS) : Alert and calm RASS Score : 0 ALEJA MULLEN RN - 07/15/2013 11:21 CDT Source: [employer] Document Id: [id number] CDT!37 Miscellaneous - Aleja Mullen R.N. - 07/15/2013 11:13 AM CDT Adult Postprocedure Assessment Adult Postprocedure Assessment Entered On: 07/15/2013 11:21 CDT Performed On: 07/15/2013 11:13 CDT by ALEJA MULLEN RN Vital Signs Peripheral Pulse Rate : 70 /min Respiratory Rate : 16 /min Systolic Blood Pressure : 143 mmHg (HI) Diastolic Blood Pressure : 76 mmHg NIBP Mean : 98 mmHg BP Location : Left upper extremity SpO2 : 91 % (LOW) Oxygen Saturation Monitoring Frequency : Continuous Oxygen Therapy : Room air Height : 172 cm(Converted to: 5 ft 8 inch(es)) ALEJA MULLEN RN - 07/15/2013 11:13 CDT Source: [employer] Document Id: [id number] CDT!12 Misheronaneous - Aleja Mullen R.N. - 07/15/2013 11:04 AM CDT Adult Postprocedure Assessment Adult Postprocedure Assessment Entered On: 07/15/2013 11:05 CDT Performed On: 07/15/2013 11:04 CDT by ALEJA MULLEN RN Vital Signs Peripheral Pulse Rate : 73 /min Respiratory Rate : 16 /min Systolic Blood Pressure : 149 mmHg (HI) Diastolic Blood Pressure : 69 mmHg NIBP Mean : 96 mmHg BP Location : Left upper extremity SpO2 : 91 % (LOW) Oxygen Saturation Monitoring Frequency : Continuous Oxygen Therapy : Room air Height : 172 cm(Converted to: 5 ft 8 inch(es)) ALEJA MULLEN RN - 07/15/2013 11:04 CDT General Level of Consciousness : Alert Orientation : Oriented x 3 Skin Color : Normal for ethnicity Skin Description : Dry, Normal Skin Temperature : Warm Pain Symptoms : No ALEJA MULLEN RN - 07/15/2013 11:04 CDT Respiratory Respiratory Pattern : Regular Respirations : Unlabored ALEJA MULLEN RN - 07/15/2013 11:04 CDT GI/ Passing Flatus : No ALEJA MULLEN RN - 07/15/2013 11:04 CDT Source: [employer] Document Id: [id number] CDT!24 Miscellaneous - Aleja Mullen R.N. - 07/15/2013 10:58 AM CDT Adult Postprocedure Assessment Adult Postprocedure Assessment Entered On: 07/15/2013 11:00 CDT Performed On: 07/15/2013 10:58 CDT by ALEJA MULLEN RN Vital Signs Temperature Core : 36.6 DegC(Converted to: 97.9 DegF) Peripheral Pulse Rate : 73 /min Respiratory Rate : 16 /min Systolic Blood Pressure : 142 mmHg (HI) Diastolic Blood Pressure : 72 mmHg NIBP Mean : 95 mmHg BP Location : Left upper extremity SpO2 : 91 % (LOW) Oxygen Saturation Monitoring Frequency : Continuous Oxygen Therapy : Room air Height : 172 cm(Converted to: 5 ft 8 inch(es)) ALEJA MULLEN RN - 07/15/2013 10:58 CDT General Level of Consciousness : Alert Orientation : Oriented x 3 Skin Color : Normal for ethnicity Skin Description : Dry, Normal Skin Temperature : Warm Pain Symptoms : No ALEJA MULLEN RN - 07/15/2013 10:58 CDT Cardiovascular Heart Rhythm : Regular ALEJA MULLEN RN - 07/15/2013 10:58 CDT Respiratory Anesthesia Type : Other: procedural sedation Respiratory Pattern : Regular Respirations : Unlabored ALEJA MULLEN RN - 07/15/2013 10:58 CDT GI/ Nausea Symptoms : No Passing Flatus : No ALEJA MULLEN RN - 07/15/2013 10:58 CDT Peripheral IV Peripheral IV Assess/Intervention Grid Peripheral IV #1 IV Activity : Assessment, Saline lock Number of Attempts : 2 Date of Insertion : 07/15/2013 CDT IV Site : Hand Laterality : Left Catheter Size : 20 ALEJA MULLEN RN - 07/15/2013 10:58 CDT Activity Patient Position : Lying on right side ALEJA MULLEN RN - 07/15/2013 10:58 CDT Perez Perez Agitation Sedation Scale (RASS) : Alert and calm RASS Score : 0 ALEJA MULLEN RN - 07/15/2013 10:58 CDT Education General Patient Education [employer] Topics : Plan of care (Comment: Patient arrived in recovery following colonoscopy. Tolerated procedure well. VSS. Denies pain or nausea. Will con't to monitor. [ALEJA MULLEN RN - 07/15/2013 10:58 CDT] ) Individuals Taught : Patient Barriers to Learning : None evident Teaching Method : Explanation ALEJA MULLEN RN - 07/15/2013 10:58 CDT Source: [facility] POWERCHART Document Id: [id number] CDT!50 Miscellaneous - Nate Valentin M.D. - 07/15/2013 10:53 AM CDT Ambulatory Patient Summary [place] [address] [place], [place] [id number] Visit Information Name: FRANSICO MACDONALD [facility] Number: [id number] Current Date: 07/15/2013 10:53:29 Physicians Attending Provider: NATE VALENTIN MD Primary Care Provider: YOLANDA COLÓN NP FRANSICO MACDONALD has been given the following list of follow-up instructions, medication list, and patient education materials: Follow-up Instructions With: Address: When: NATE VALENTIN [address] [place] [id number] [facility] (2) In 10 years 07/16/2023 Comments: colonoscopy Your Medications Here is a list of [...] nasal (fluticasone 50 mcg/inh nasal spray) 1 Willard(s), Nasal, once a day glucosamine-chondroitin (Osteo Bi-Flex) 1 tablets, Oral, two times a day hydrochlorothiazide (hydrochlorothiazide 25 mg oral tablet) 1 Tablet(s), Oral, once a day losartan (losartan 100 mg oral tablet) 1 Tablet(s), Oral, once a day multivitamin with minerals (Centrum Silver) 1, once a day naproxen (Naprosyn 500 mg oral tablet) 1 Tablet(s), Oral, two times a day as needed for pain omeprazole (omeprazole 20 mg oral delayed release capsule) 1 cap, Oral, once a day pravastatin (pravastatin 80 mg oral tablet) 1 Tablet(s), Oral, once a day (at bedtime) terazosin (Hytrin 1 mg oral capsule) 1 cap, Oral, once a day (at bedtime) Stop Taking the Following Medications: Medication list as of 07-15-13 10:53 Attention: If you have any medications at home that are not on this list, DO NOT take them until youcontact your provider for clarification. Give a copy of your medication list to your primary care provider. Update your medication list any time medications or doses are changed and carry your medication list at all times in case of emergency. Electronically Signed By: NATE VALENTIN MD Signed On:15-JUL-2013 10:52:33 Your Allergies & Intolerances Substance Reaction Symptoms Category Comments Tylenol Drug Your Problem List Problem Status Onset Comments Hypertension Essential (401.9) Active Hypercholesterolemia Active Obesity NOS Active Your Upcoming Appointments Date Time Location Reason Provider No Appointments found Attention: Contact your local Clinic if further appointment detail needed. Your Goals/Additional instructions: Source: [facility] POWERCHART Document Id: [id number] Miscellaneous - Nate Valentin M.D. - 07/15/2013 10:53 AM CDT Ambulatory Discharge Medication List [address] [id number] Visit Information Name: FRANSICO MACDONALD [facility] Number: [id number] Visit Date: 07/15/2013 10:53:27 Attending Provider: NATE VALENTIN MD Primary Care Provider: YOLANDA COLÓN DELIVERY MGR FRANSICO MACDONALD has been given the following [...] nasal (fluticasone 50 mcg/inh nasal spray) 1 Willard(s), Nasal, once a day glucosamine-chondroitin (Osteo Bi-Flex) 1 tablets, Oral, two times a day hydrochlorothiazide (hydrochlorothiazide 25 mg oral tablet) 1 Tablet(s), Oral, once a day losartan (losartan 100 mg oral tablet) 1 Tablet(s), Oral, once a day multivitamin with minerals (Centrum Silver) 1, once a day naproxen (Naprosyn 500 mg oral tablet) 1 Tablet(s), Oral, two times a day as needed for pain omeprazole (omeprazole 20 mg oral delayed release capsule) 1 cap, Oral, once a day pravastatin (pravastatin 80 mg oral tablet) 1 Tablet(s), Oral, once a day (at bedtime) terazosin (Hytrin 1 mg oral capsule) 1 cap, Oral, once a day (at bedtime) Stop Taking the Following Medications: Medication list as of 07-15-13 10:53 Attention: If you have any medications at home that are not on this list, DO NOT take them until youcontact your provider for clarification. Give a copy of your medication list to your primary care provider. Update your medication list any time medications or doses are changed and carry your medication list at all times in case of emergency. Electronically Signed By: NATE VALENTIN MD Signed On:15-JUL-2013 10:52:33 Additional Information: Source: [facility] POWER[facility]ART Document Id: [id number] documented in this encounter Plan of Treatment Upcoming Encounters Date Type Specialty Care Team Description 02/11/2022 Appointment Laboratory Medicine Neli Hearn M.D. [address] [place] [phone] (Stephon caldera) 02/14/2022 Office Visit Family Medicine Lilli Hearn M.D. [address] [place] [phone] (Stephon caldera) documented as of this encounter Procedures Procedure Name Priority Date/Time Associated Comments Diagnosis US GALLBLADDER AND OR Routine 07/15/2013 10:24 Re sults for this BILIARY DUCTS AM CDT procedure are in the results section. documented in this encounter Results US Gallbladder (07/15/2013 10:24 AM CDT) Anatomical Region Laterality Modality Abdomen N/A Ultrasound Specimen (Source) Anatomical Collection Method Collection Time Re ceived Time Location / / Volume Laterality 07/15/2013 10:24 AM CDT Narrative 07/15/2013 1:56 PM CDT Technique: Grayscale and color Doppler r ight upper quadrant sonogram was obtained. No prior studies are avail able for comparison. Findings/impression: Negative Fontanez's s ign was elicited. Nodular nonmobile densities are seen in the gall bladder compatible with polyps with or without calcifications. T he gallbladder is otherwise unremarkable. Common bile duct is within normal limits. Negative Fontanez's sign noted. Patent proximal IVC . The proximal abdominal aorta is unremarkable. Procedure Note Narinder Mejia M.D. / ProviderShahida M.D. - 08/05/2016 Technique: Grayscale and color Doppler r ight upper quadrant sonogram was obtained. No prior studies are avail able for comparison. Findings/impression: Negative Fontanez's s ign was elicited. Nodular nonmobile densities are seen in the gall bladder compatible with polyps with or without calcifications. T he gallbladder is otherwise unremarkable. Common bile duct is within normal limits. Negative Fontanez's sign noted. Patent proximal IVC . The proximal abdominal aorta is unremarkable. Natacha Niño R.V.T., R.D.M.S. IMG US PROCEDURES documented in this encounter Visit Diagnoses Not on filedocumented in this encounter
--- OUTSIDE RECORDS SUMMARY | 2021-12-28 10:02 | XMS_ITS | Encounter Summary ---
:1945 Author Organization [facility] Address [address] [place] [address] Care Team Providers Name Role Phone Unavailable Primary Care Provider Unavailable Encounter Details Date Type Department Care Team Description 03/11/2015 Hospital Encounter [facility] JENNIFERWendy Riojas, MANAGER TRAVEL, C.N.P. [address] [place] [phone] (Wo rk) Social History Tobacco Use Types [...] or relatives? How often do you attend pentecostalism or 1 to 4 times per year 11/2019 scientology services? 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N.P. - 03/11/2015 9:43 AM CST [id number] CHIEF COMPLAINT/REASON FOR VISIT Medhat is here for recheck of his blood pressure. It has been running high. He did have a DOT physical exam and his blood pressure was very elevated. He also made note to the physician who was doing hisDOT that he stopped using his CPAP, therefore, he was not cleared for his 2 year certificate. He didreceive 90 days only. Patient is currently laid off for the winter, but is concerned about obtaininghis DOT for the next 2 years. Medhat was on Medifast and lost a significant amount of weight. He recently went off and regained 20 pounds. He states due to the expense he is unable to continue on this. His blood pressure has been elevated for the past 3 to 4 weeks. He feels it is making him very agitated and short-tempered. He has been taking his medications as prescribed. He has no regular exercise, but does state that he walks occasionally. Denies any chest pain, shortness of breath. Denies swelling in his lower extremities. He was diagnosed with obstructive sleep apnea. He had a CPAP which he stopped using when he lost the weight. He has not had a sleep follow up for many years since he originally began with the CPAP. PAST MEDICAL/SURGICAL HISTORY Obesity. Essential hypertension. Uncontrolled hyperlipidemia. Obstructive sleep apnea. Depression. SOCIAL HISTORY Nonsmoker, no alcohol use. No regular exercise. 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 . MEDICATIONS Aspirin 81 mg. Bupropion XR 150 twice a day. Centrum Silver. Fluticasone. Hytrin. Losartan hydrochlorothiazide 100/25. Naprosyn. [place] fish oil. Omeprazole 20. Wpvkr-Mz-Mdaa. Pravastatin 80. Sildenafil or Viagra. ALLERGIES To TYLENOL. SYSTEMS REVIEW No fever, chills, sweats, body aches. HEENT: No headaches, blurred or double vision. CHEST: No shortness of breath, cough, or chest pain. GI: No nausea, vomiting, diarrhea. PSYCH: He does complain of increasing irritability which he attributes to his blood pressure. PHYSICAL EXAMINATION GENERAL: Very pleasant, 69-year-old male no apparent distress. HEENT: Conjunctivae, TMs, nasal mucosa clear. CHEST: Lungs clear to auscultation. Respirations equal and unlabored. HEART: Rate and rhythm is regular. ABDOMEN: Soft, obese, nontender. No palpable mass or organomegaly. No pedal edema. IMPRESSION/REPORT/PLAN 1. Benign essential hypertension, uncontrolled. 2. Hyperlipidemia. 3. Morbid obesity. 4. Obstructive sleep apnea. PLAN: 1. We will initiate amlodipine 5 mg 1 tab daily, side effect profile discussed. He will continue on his current losartan hydrochlorothiazide as directed. 2. Reinforced the importance of regular exercise, low-fat, low-cholesterol, and low-salt diet. Encouraged to avoid any caffeine and to continue to try to eat smaller portions to keep his weight down. Idid offer dietary counseling, patient declined. 3. I recommended abdominal aortic ultrasound given his age, history of hypertension and obesity and he did agree to this, so abdominal aortic ultrasound was ordered for him at the next available appointment. 4. Consult to Dr. Dumas for a sleep evaluation was also set up for him. I explained to him that I amnot able to clear him for his DOT because he does have a diagnosis of sleep apnea and he is currently not using CPAP. He is not interested in restarting CPAP, so he will follow up with Dr. Dumas for further evaluation and recommendations. 5. The patient to follow up with me in 3 to 4 weeks for recheck of blood pressure. All questions were answered to his satisfaction. Yolanda Colón APRN, C.N.P./pos Electronically Signed By: YOLANDA COLÓN MANAGER ADMINISTRATIVE On: 03/13/2015 07:44 AM Source: [facility] MHSDOLBEYNONRADSYS Document Id: [id number] T FIXTURE SERVICER documented in this encounter Miscellaneous Notes Miscellaneous - Yolanda Colón APRN, C.N.P. - 03/13/2015 7:49 AM LIGHT FIXTURE SERVICER Results Notification Document Contains Addenda Addendum by MERVIN MARQUEZ LPN on 13 March 2015 09:20:18 LIGHT FIXTURE SERVICER Called patient and verbalized below. No further questions. From: YOLANDA COLÓN MANAGER ADMINISTRATIVE To: MERVIN MARQUEZ LPN; Sent: 03/13/2015 07:49:13 LIGHT FIXTURE SERVICER Show up: 03/13/2015 07:49:00 LIGHT FIXTURE SERVICER Subject: Results Notification Cholesterol is up from his last check. He is currently at the highest dose of pravastatin. We couldchange to lipitor but I suspect his recent weight gain contributes to these results. Advised to continue eating a low fat low cholesterol diet, exercise and recheck lipids in 3 months. Order placed. Results: Date Result Name Ind Value Ref Range 03/11/2015 10:45 Cholesterol (H) 238 mg/dL ( - <=199) 03/11/2015 10:45 Trig (H) 190 mg/dL ( - <=149) 03/11/2015 10:45 HDL 50 mg/dL (>=40 - ) 03/11/2015 10:45 LDL Calculated (H) 150 mg/dL ( - <=129) 03/11/2015 10:45 PSA 2.0 ng/mL ( - <=4.5) 03/11/2015 10:45 Hgb 15.7 g/dL (13.5 - 17.5) 03/11/2015 10:45 Hct 46.6 % (38.8 - 50.0) 03/11/2015 10:45 WBC 6.4 x10(9)/L (3.5 - 10.5) 03/11/2015 10:45 RBC 5.16 x10(12)/L (4.32 - 5.72) 03/11/2015 10:45 MCV 90.3 fL (81.2 - 95.1) 03/11/2015 10:45 RDW 12.9 % (11.8 - 15.6) 03/11/2015 10:45 Platelet 261 x10(9)/L (150 - 450) 03/11/2015 10:45 Neutro Absolute 3.37 10(9)/L (1.70 - 7.00) 03/11/2015 10:45 Lymph Absolute 2.41 x10(9)/L (0.90 - 2.90) 03/11/2015 10:45 Buchanan Absolute 0.47 x10(9)/L (0.30 - 0.90) 03/11/2015 10:45 Eos Absolute 0.14 x10(9)/L (0.05 - 0.50) 03/11/2015 10:45 Baso Absolute 0.03 x10(9)/L (0.00 - 0.30) 03/11/2015 10:45 Differential? Auto Source: [facility] POWERCHART Document Id: [id number] Miscellaneous - Yolanda Colón, MANAGER TRAVEL, C.N.P. - 03/11/2015 10:25 AM LIGHT FIXTURE SERVICER Ambulatory Patient Summary [address] [place], [place] [phone] Visit Information Name: FRANSICO MACDONALD [facility] Number: [id number] Current Date: 03/11/2015 10:25:11 Physicians Attending Provider: YOLANDA COLÓN MANAGER ADMINISTRATIVE Primary Care Provider: YOLANDA COLÓN MANAGER ADMINISTRATIVE ROSEMARIESTELLA FRANSICO HINOJOSA has been given the following list of [...] Oral, once a day New Routed to [address] [address] aspirin (aspirin 81 mg oral tablet) 1 Tablet(s), Oral, once a day buPROPion (buPROPion SR 150 mg/12 hour oral tablet, sustained release) 1 Tablet(s), Oral, two times a day fluticasone nasal (fluticasone 50 mcg/inh nasal spray) 1 Irvine(s), Nasal, once a day glucosamine-chondroitin (Osteo Bi-Flex) 1 tablets, Oral, two times a day losartan-hydrochlorothiazide (losartan-hydrochlorothiazide 100 mg-25 mg oral tablet) 1 Tablet(s), Oral, once a day (Hyzaar) New Routed to [address] [address] multivitamin with minerals (Centrum Silver Men's oral tablet) 1 Tablet(s), Oral, once a day naproxen (Naprosyn 500 mg oral tablet) 1 Tablet(s), Oral, two times a day as needed for pain Routed to [address] [address] omega-3 polyunsaturated fatty acids ([place]-500 oral capsule) 1 cap, Oral, once a day omeprazole (omeprazole 20 mg oral delayed release capsule) 1 cap, Oral, once a day New Routed to [address] [address] pravastatin (pravastatin 80 mg oral tablet) 1 Tablet(s), Oral, once a day (at bedtime) sildenafil (sildenafil 25 mg oral tablet) 1 tablet one hour prior to sexual activity, Oral, once a day as needed for Erectile dysfunction terazosin (Hytrin 1 mg oral capsule) 1 cap, Oral, once a day (at bedtime) Stop Taking the Following Medications: hydrochlorothiazide (hydrochlorothiazide 25 mg oral tablet) losartan (losartan 100 mg oral tablet) Medication list as of 03-11-15 10:25 Attention: If you have any medications at [...] of emergency. Electronically Signed By: YOLANDA COLÓN MANAGER ADMINISTRATIVE Signed On:11-MAR-2015 10:24:51 Your Allergies & Intolerances Substance Reaction Symptoms [...] if you dont have one. Go to [email or web address] and click on Create Your Account. Then, follow the directions to complete the online form. Youll be asked for your [facility] number which you can find at the top of this document. Your Goals/Additional instructions: Source: [facility] POWERCHART Document Id: [id number] T FIXTURE SERVICER Miscellaneous - Yolanda Colón APRN, C.N.P. - 03/11/2015 10:25 AM LIGHT FIXTURE SERVICER Ambulatory Discharge Medication List [address] [id number] Visit Information Name: FRANSICO MACDONALD [facility] Number: [id number] Visit Date: 03/11/2015 10:25:08 Attending Provider: YOLANDA COLÓN MANAGER ADMINISTRATIVE Primary Care Provider: YOLANDA COLÓN MANAGER ADMINISTRATIVE FRANSICO MACDONALD MICAELA has been given the [...] Oral, once a day New Routed to [address] [address] aspirin (aspirin 81 mg oral tablet) 1 Tablet(s), Oral, once a day buPROPion (buPROPion SR 150 mg/12 hour oral tablet, sustained release) 1 Tablet(s), Oral, two times a day fluticasone nasal (fluticasone 50 mcg/inh nasal spray) 1 Irvine(s), Nasal, once a day glucosamine-chondroitin (Osteo Bi-Flex) 1 tablets, Oral, two times a day losartan-hydrochlorothiazide (losartan-hydrochlorothiazide 100 mg-25 mg oral tablet) 1 Tablet(s), Oral, once a day (Hyzaar) New Routed to [address] [address] multivitamin with minerals (Centrum Silver Men's oral tablet) 1 Tablet(s), Oral, once a day naproxen (Naprosyn 500 mg oral tablet) 1 Tablet(s), Oral, two times a day as needed for pain Routed to [address] [address] omega-3 polyunsaturated fatty acids ([place]-500 oral capsule) 1 cap, Oral, once a day omeprazole (omeprazole 20 mg oral delayed release capsule) 1 cap, Oral, once a day New Routed to [address] [address] pravastatin (pravastatin 80 mg oral tablet) 1 Tablet(s), Oral, once a day (at bedtime) sildenafil (sildenafil 25 mg oral tablet) 1 tablet one hour prior to sexual activity, Oral, once a day as needed for Erectile dysfunction terazosin (Hytrin 1 mg oral capsule) 1 cap, Oral, once a day (at bedtime) Stop Taking the Following Medications: hydrochlorothiazide (hydrochlorothiazide 25 mg oral tablet) losartan (losartan 100 mg oral tablet) Medication list as of 03-11-15 10:25 Attention: If you have any medications at [...] of emergency. Electronically Signed By: YOLANDA COLÓN MANAGER ADMINISTRATIVE Signed On:11-MAR-2015 10:24:51 Additional Information: Source: [facility] [employer]aze DFM Document Id: [id number] T FIXTURE SERVICER Miscellaneous - Yolanda Colón APRN, C.N.P. - 03/11/2015 10:25 AM LIGHT FIXTURE SERVICER Ambulatory Vitals Height Weight Ambulatory Vitals Height Weight Entered On: 03/11/2015 10:25 LIGHT FIXTURE SERVICER Performed On: 03/11/2015 10:25 LIGHT FIXTURE SERVICER by YOLANDA COLÓN NP Vitals/Ht/Wt Systolic Blood Pressure : 168 mmHg (>HHI) Diastolic Blood Pressure : 92 mmHg (>HHI) NIBP Mean : 117 mmHg Height : 172 cm(Converted to: 5 ft 8 inch(es), 68 inch(es)) YOLANDA COLÓN MANAGER ADMINISTRATIVE - 03/11/2015 10:25 LIGHT FIXTURE SERVICER [facility] Document Id: [id number] LIGHT FIXTURE SERVICER!6 T FIXTURE SERVICER Miscellaneous - Mervin Marquez, LFamiliaP.N. - 03/11/2015 9:55 AM CST Adult Abatement Worker Intake/History Document Has Been Updated Adult Abatement Worker Intake/History Entered On: 03/11/2015 9:55 LIGHT FIXTURE SERVICER Performed On: 03/11/2015 9:55 LIGHT FIXTURE SERVICER by MERVIN MARQUEZ LPN Intake Chief Complaint : Feels short tempered- more hyper Check BP readings Temperature Core : 36.7 DegC(Converted to: 98.1 DegF) Peripheral Pulse Rate : 82 /min MERVIN MARQUEZ LPN - 03/11/2015 9:55 LIGHT FIXTURE SERVICER Systolic Blood Pressure : 174 mmHg (>HHI) Diastolic Blood Pressure : 88 mmHg NIBP Mean : 117 mmHg MERVIN MARQUEZ LPN - 03/11/2015 9:56 LIGHT FIXTURE SERVICER SpO2 : 97 % Height : 172 cm(Converted to: 5 ft 8 inch(es), 68 inch(es)) Actual Weight : 141.2 kg(Converted to: 311 lb 5 oz) Dosing Weight Clinic : 141.2 kg Clinic BSA : 2.6 Body Mass Index : 47.73 kg/m2 MERVIN MARQUEZ LPN - 03/11/2015 9:55 LIGHT FIXTURE SERVICER General Info Languages : Nicaraguan Is Patient Female and 13-50 no hysterectomy : No MERVIN MARQUEZ LPN - 03/11/2015 9:55 LIGHT FIXTURE SERVICER Subjective Pain Symptoms : No MERVIN MARQUEZ LPN - 03/11/2015 9:55 LIGHT FIXTURE SERVICER Dependent Habits Smoking Status : Never smoker Tobacco 2A : No MERVIN MARQUEZ LPN - 03/11/2015 9:55 LIGHT FIXTURE SERVICER Source: [facility] POWERCHART Document Id: [id number] LIGHT FIXTURE SERVICER!5 T FIXTURE SERVICER documented in this encounter Plan of Treatment Upcoming Encounters Date Type Specialty Care Team Description 02/11/2022 Appointment Laboratory Medicine Neli Hearn M.D. [address] [place] [phone] (Wo rk) 02/14/2022 Office Visit Family Medicine Lilli Hearn M.D. [address] [place] [address] (Wo rk) documented as of this encounter Procedures Procedure Name Priority Date/Time Associated Diagnosis Comme nts LIPID PANEL, S Routine 03/11/2015 10:45 AM Result s for this LIGHT FIXTURE SERVICER procedure are i n the results section. PROSTATE-SPECIFIC Routine 03/11/2015 10:45 AM Res ults for this AG (PSA) SCRN, S LIGHT FIXTURE SERVICER procedure a re in the results section. AUTOMATED Routine 03/11/2015 10:45 AM Results for this DIFFERENTIAL, B LIGHT FIXTURE SERVICER procedure ar e in the results section. CBC WITH Routine 03/11/2015 10:45 AM Results for this DIFFERENTIAL, B LIGHT FIXTURE SERVICER procedure ar e in the results section. documented in this encounter Results Automated Differential (03/11/2015 10:45 AM LIGHT FIXTURE SERVICER) athologist Signature Absolute 3.37 1.70 - POWERCHART Neutrophils 7.00 109L Lymphocytes 2.41 0.90 - POWERCHART 2.90 X109L Monocytes 0.47 0.30 - POWERCHART 0.90 X109L Eosinophils 0.14 0.05 - POWERCHART 0.50 X109L Absolute 0.03 0.00 - POWERCHART Basophil 0.30 X109L Specimen Anatomical Collection Method Collection Time Receive d Time (Source) Location / / Volume Laterality Blood 03/11/2015 10:45 03/11/2015 AM LIGHT FIXTURE SERVICER 10:45 AM LIGHT FIXTURE SERVICER Yolanda Colón APRN, C.N.P. LAB BLOOD ADD-ON Performing Organization Address City/State/ZIP Code Phon e Number POWERCHART CBC with Differential (03/11/2015 10:45 AM LIGHT FIXTURE SERVICER) athologist Signature Leukocytes 6.4 3.5 - 10.5 POWERCHART X109L Erythrocytes 5.16 4.32 - POWERCHART 5.72 [id number] Hemoglobin 15.7 13.5 - POWERCHART 17.5 GDL Hematocrit 46.6 38.8 - POWERCHART 50.0 MCV 90.3 81.2 - POWERCHART 95.1 FL HX RDW 12.9 11.8 - POWERCHART 15.6 Platelet Count 261 150 - 450 POWERCHART X109L HXDifferential? Auto POWERCHART Specimen (Source) Anatomical Collection Method Collection Time Re ceived Time Location / / Volume Laterality Blood 03/11/2015 10:45 AM LIGHT FIXTURE SERVICER Yolanda Hailey Katarzyna CLARK, C.N.P. LAB BLOOD ADD-ON Performing Organization Address City/State/ZIP Code Phon e Number POWERCHART PSA (Prostate-Specific Antigen) Screen (03/11/2015 10:45 AM LIGHT FIXTURE SERVICER) P athologist Signature Prostate-Specif 2.0 <=4.5 NGML POWERCHART ic Ag Specimen (Source) Anatomical Collection Method Collection Time Re ceived Time Location / / Volume Laterality Blood 03/11/2015 10:45 AM LIGHT FIXTURE SERVICER Yolanda Hailey Katarzyna CLARK, C.N.P. LAB BLOOD ADD-ON Performing Organization Address City/State/ZIP Code Phon e Number POWERCHART (ABNORMAL) Lipid Panel (03/11/2015 10:45 AM LIGHT FIXTURE SERVICER) P athologist Signature Cholesterol, 238 (H) <=199 MGDL POWERCHART Total Comment: 2014 National Lipid Association recommen dations for Total Cholesterol in adults ages 18 and up: Desirable <200 mg/dL Borderline high 200-239 mg/dL High 240 mg/dL 2014 National Lipid Association recommen dations for Total Cholesterol in children ages 2 to 17. Acceptable <170 mg/dL Borderline High 170-199 mg/dL High 200 mg/dL HX HDL 50 >=40 MGDL POWERCHART Comment: 2014 National Lipid Association recommen dations for HDL-C in adults ages 18 and up: Low <40 mg/dL (Men) Low <50 mg/dL (Women) 2014 National Lipid Association recommen dations for HDL-C in children ages 2 to 17. Low <40 mg/dL Borderline Low 40-45 mg/dL Acceptable >45 mg/dL Triglycerides 190 (H) <=149 MGDL POWERCHART Comment: 2014 National [...] assessment when triglycerides are >400mg/dL. Calculated LDL 150 (H) <=129 MGDL POWERCHART Comment: 2013 National Lipid Association recommen dations for LDL-C in adults ages 18 and up: Desirable <100 mg/dL Above desirable 100-129 mg/dL Borderline high 130-159 mg/dL High 160-189 mg/dL Very High 190 mg/dL 2013 National Lipid Association recommen dations for LDL-C in children ages 2 to 17. Acceptable <110 mg/dL Borderline High 110-129mg/dL High 130 mg/dL LDL-C >190mg/dL: The markedly elevated LDL level is suggestive of a genetic condition such as familial hypercholesterolemia(FH) or familial defective apolipoprotein B-100 (FDB). Molecular genetic t esting for FH and FDB is available and[facility]u [facility]: FH/ADH Genetic Reflex Rivera el (test ADHP). Acquired (non-genetic) causes of markedly increased LDL cholesterol include cholestatic liver disease due to the presence of LpX. If a genetic form of hypercholesterolemia is suspected, family studies including biochemical testing fo r lipids (total cholesterol,triglycerides, LDL cholesterol and HDL cholesterol) are recommended. ??Please contact the laboratory at or the on-line test catalog at [employer] for information about how to order these endy ts or to speak with a genetic counselor. Further interpretation would require clinical information. Specimen (Source) Anatomical Collection Method Collection Time Re ceived Time Location / / Volume Laterality Blood 03/11/2015 10:45 AM LIGHT FIXTURE SERVICER Yolanda Colón APRN, C.N.P. LAB BLOOD ADD-ON Performing Organization Address City/State/ZIP Code Phon e Number POWERCHART documented in this encounter Visit Diagnoses Not on filedocumented in this encounter
--- OUTSIDE RECORDS SUMMARY | 2021-12-28 10:02 | XMS_ITS | Encounter Summary ---
:1945 Author Organization [facility] Address [address] [place] [address] Care Team Providers Name Role Phone Unavailable Primary Care Provider Unavailable Encounter Details Date Type Department Care Team Description 04/16/2013 Hospital Encounter HX [facility] MAQN NUC Heather Hoyt, EROSION CONTROL SPECIALIST, C.N.P. 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 0 aspirin 81 mg capsule Take 1 tablet by 0 07/16/19 11 01/09/2018 mouth daily. documented as of this encounter Progress Notes Yolanda Colón APRN, C.N.P. - 06/26/2013 12:00 AM CDT [id number] Patient was notified of his recent cardiology testing. He had a heart scan after an abnormal stress test. All results were given to Medhat over the phone today, including the radiology report of a smallnodule on the left lower lung and an area of hypervascularization on the liver. We discussed some further options including further scanning on his liver. He did agree to a followup CT scan in approximately 6 months, but states at this point he is not interested in doing anything prior to that. I onceagain discussed a low-fat low-cholesterol diet, regular exercise, weight loss and continue with his current pravastatin and fish oil capsules to keep his cholesterol in the normal range. The patient also notes he has not been notified of his colonoscopy schedule date and as I look into his file it does not appear to have been scheduled for him so will go ahead and reorder that today for a screening colonoscopy and will try to get that completed within the next 3 to 4 weeks as he will be returning tohis work at that time. So finally a CT scan of chest and liver will be scheduled in 6 months. Also advised patient to return in 6 months or in the fall for a cholesterol screen. Linda BentleyNFamiliaP./pos Electronically Signed By: YOLANDA COLÓN STAPLE CUTTER On: 06/27/2013 10:28 AM Source: [facility] MHSDOLBEYNONRADSYS Document Id: [id number] documented in this encounter Plan of Treatment Upcoming Encounters Date Type Specialty Care Team Description 02/11/2022 Appointment Laboratory Medicine Neli Hearn M.D. [address] [place] [phone] (Wo rk) 02/14/2022 Office Visit Family Medicine Lilli Hearn M.D. [address] [place] [address] (Wo rk) documented as of this encounter Procedures Procedure Name Priority Date/Time Associated Diagnosis Comme nts NM CARDIAC Routine 04/09/2013 11:34 AM Results for this PERFUSION REST AND ASSESSMENT CLINICIAN procedure are in STRESS SPECT the results section. documented in this encounter Results NM Cardiac Perfusion Rest and Stress SPECT (04/09/2013 11:34 AM ASSESSMENT CLINICIAN) Specimen (Source) Anatomical Collection Method Collection Time Re ceived Time Location / / Volume Laterality 04/09/2013 11:34 AM ASSESSMENT CLINICIAN Impressions [facility] - 06/13/2013 11:21 AM CDT See Powerchart and or PACS. [facility] - 06/13/2013 11:21 AM CDT Originally Signed By Contributor_system, [facility]_ACLEDA BankWendy The report for this exam is available in PACS with the images. To view the images and report for this e xam, click on the image indicator icon from the report window in [employer]Me. Procedure Note ProviderUzma M.D. - 08/05/2016F ormatting of this note might be different from the original. Originally Signed By Contributor_system, [facility]_PSCXAVIER_ACLEDA [employer]y The report for this exam is available in PACS with the images. To view the images and report for this e xam, click on the image indicator icon from the report window in [employer]. IMPRESSION: See Powerchart and or PACS. Milton Thacker(Sadie)(CT) IMG NM PROCEDURES Performing Organization Address City/State/ZIP Code Phon e Number [facility] [address] [place] [address], [place] documented in this encounter Visit Diagnoses Not on filedocumented in this encounter
--- OUTSIDE RECORDS SUMMARY | 2021-12-28 10:02 | XMS_ITS | Encounter Summary ---
:1945 Author Organization [facility] Address [address] [place] [address] Care Team Providers Name Role Phone Unavailable Primary Care Provider Unavailable Encounter Details Date Type Department Care Team Description 06/03/2014 Hospital Encounter HX [facility] JENNIFERWendy Riojas, SPONGE BUFFER, C.N.P. 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 - 06/03/2014 9:41 AM CDT [id number] CHIEF COMPLAINT/REASON FOR VISIT Medhat is here to re-freeze the wart on his right foot. HISTORY OF PRESENT ILLNESS The wart has been present for many months. He came in last week and had an initial treatment which he states he tolerated well without much discomfort. He is going back to work in 1 to 2 weeks and would like this totally gone by that time. No other concerns or complaints today. PAST MEDICAL/SURGICAL HISTORY Hyperlipidemia. Hypertension. Obesity. MEDICATIONS Aspirin 81 mg. Bupropion. Fluticasone. Hydrochlorothiazide. Hytrin. Losartan. Naprosyn. Omeprazole. Osteo Bi-Flex. Pravastatin. Sildenafil. ALLERGIES TYLENOL. SYSTEMS REVIEW A 10-point review of systems negative VITAL SIGNS Temperature 36.3, heart rate 65, blood pressure 130/76, O2 sat 96%. Height 172, weight 130.7, BMI 44.18. PHYSICAL EXAMINATION GENERAL: Pleasant 68-year-old male in no apparent distress. Consult for procedure was obtained today. The nurse practitioner student, Tasha Baker, did the procedure with a #15 blade and she pared thelesion without any difficulty, and patient did tolerate this quite well. Liquid nitrogen was used inthe typical freeze-thaw pattern x4 passes without any difficulty and dressing applied. IMPRESSION/REPORT/PLAN Plantar wart x1. PLAN: Care of lesion was discussed. He will return in 1 week for possible retreatment and re-evaluation. [id number] analgesics for discomfort as needed. He is in agreement with this treatment plan. Linda BentleyNIsadora/pos Electronically Signed By: YOLANDA COLÓN [facility]VANCED PRACTICE PSYCHIATRIC NURSE On: 06/04/2014 11:47 AM Source: [facility] MHSDOLBEYNONRADSYS Document Id: [id number] documented in this encounter Miscellaneous Notes Miscellaneous - Yolanda Colón APRN, C.N.Ryne. - 06/03/2014 10:40 AM CDT Ambulatory Patient Summary [address] [id number] Visit Information Name: FRANSICO MACDONALD MICAELA [facility] Number: [id number] Current Date: 06/03/2014 10:40:20 Physicians Attending Provider: YOLANDA COLÓN NP Primary Care Provider: YOLANDA COLÓN NP LIZETLO FRANSICO HINOJOSA has been given the following [...] nasal (fluticasone 50 mcg/inh nasal spray) 1 Dunlap(s), Nasal, once a day glucosamine-chondroitin (Osteo Bi-Flex) 1 tablets, Oral, two times a day hydrochlorothiazide (hydrochlorothiazide 25 mg oral tablet) 1 Tablet(s), Oral, once a day losartan (losartan 100 mg oral tablet) 1 Tablet(s), Oral, once a day Misc Prescription (Misc Prescription) 2, once a [...] the Following Medications: Medication list as of 06-03-14 10:40 Attention: If you have any medications at [...] of emergency. Electronically Signed By: YOLANDA COLÓN ADVANCED PRACTICE PSYCHIATRIC NURSE Signed On:03-JUN-2014 10:40:08 Your Allergies & Intolerances Substance Reaction Symptoms Category Comments Tylenol Drug Your Problem List Problem Status Onset Comments Hypertension Essential (401.9) Active Hypercholesterolemia Active Obesity NOS Active Your Upcoming Appointments Date Time Location Provider 06/10/2014 09:15 Yolanda Nunes NP 07/16/2014 09:15 Yolanda Nunes NP Attention: Contact your local Clinic if further appointment detail needed. Your Goals/Additional instructions: Source: [facility] POWERCHART Document Id: [id number] Miscellaneous - Yolanda Colón APRN, C.N.P. - 06/03/2014 10:40 AM CDT Ambulatory Discharge Medication List [place] [place], [place] [id number] Visit Information Name: FRANSICO MACDONALD [facility] Number: [id number] Visit Date: 06/03/2014 10:40:18 Attending Provider: YOLANDA COLÓN NP Primary Care [...] nasal (fluticasone 50 mcg/inh nasal spray) 1 Dunlap(s), Nasal, once a day glucosamine-chondroitin (Osteo Bi-Flex) 1 tablets, Oral, two times a day hydrochlorothiazide (hydrochlorothiazide 25 mg oral tablet) 1 Tablet(s), Oral, once a day losartan (losartan 100 mg oral tablet) 1 Tablet(s), Oral, once a day Misc Prescription (Misc Prescription) 2, once a [...] the Following Medications: Medication list as of 06-03-14 10:40 Attention: If you have any medications at [...] of emergency. Electronically Signed By: YOLANDA COLÓN ADVANCED PRACTICE PSYCHIATRIC NURSE Signed On:03-JUN-2014 10:40:08 Additional Information: Source: [facility] POWERCHART Document Id: [id number] Miscellaneous - Yaa Carpenter R.M.A. - 06/03/2014 9:47 AM CDT Adult Shade Cutter Intake/History Adult Shade Cutter Intake/History Entered On: 06/03/2014 9:49 CDT Performed On: 06/03/2014 9:47 CDT by YAA CARPENTER Intake Chief Complaint : Freeze warts on right foot Temperature Core : 36.3 DegC(Converted to: 97.3 DegF) (LOW) Peripheral Pulse Rate : 65 /min Systolic Blood Pressure : 130 mmHg Diastolic Blood Pressure : 76 mmHg NIBP Mean : 94 mmHg SpO2 : 96 % Oxygen Therapy : Room air Height : 172 cm(Converted to: 5 ft 8 inch(es), 68 inch(es)) Actual Weight : 130.7 kg(Converted to: 288 lb 2 oz) Dosing Weight Clinic : 130.7 kg Clinic BSA : 2.5 Body Mass Index : 44.18 kg/m2 YAA CARPENTER - 06/03/2014 9:47 CDT General Info Languages : Lebanese Is Patient Female and 13-50 no hysterectomy : No YAA CARPENTER - 06/03/2014 9:47 CDT Subjective Pain Symptoms : No YAA CARPENTER - 06/03/2014 9:47 CDT Dependent Habits Tobacco Use/Currently Using : No Smoking Status : Former smoker YAA CARPENTER - 06/03/2014 9:47 CDT Tobacco Use Grid Last Use : 40 YEARS AGO YAA CARPENTER - 06/03/2014 9:47 CDT ID Screen Drug Resistant Organism : No Travel Within Last 21 Days : No Contact with someone with Ebola : No YAA CARPENTER - 06/03/2014 9:47 CDT Source: [facility] POWERCHART Document Id: [id number] CDT!30 documented in this encounter Plan of Treatment Upcoming Encounters Date Type Specialty Care Team Description 02/11/2022 Appointment Laboratory Medicine Neli Hearn M.D. [address] [place] [phone] (Wo rk) 02/14/2022 Office Visit Family Medicine Lilli Hearn M.D. [address] [place] [address] (Wo rk) documented as of this encounter Visit Diagnoses Not on filedocumented in this encounter
--- OUTSIDE RECORDS SUMMARY | 2021-12-28 10:02 | XMS_ITS | Encounter Summary ---
:1945 Author Organization [facility] Address [address] [place] [address] Care Team Providers Name Role Phone Unavailable Primary Care Provider Unavailable Encounter Details Date Type Department Care Team Description 06/13/2013 Hospital Encounter HX [facility] dJ Hope M.D. 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 documented as of this encounter Nursing Notes Letty Solis R.N. - 06/13/2013 9:23 AM CDT Preprocedure Education Preprocedure Education Entered On: 06/13/2013 9:23 CDT Performed On: 06/13/2013 9:23 CDT by LETTY SOLIS Education Preprocedure Education Grid Procedure Type : CTA Coronary Education Topics : Patient rights and responsibilities, Plan of care, Preprocedure diet, Tubes/Drains/IV's Individuals Taught : Patient Barriers to Learning : None evident Teaching Method : Explanation Teaching Evaluation : Verbalizes understanding LETTY SOLIS - 06/13/2013 9:23 CDT Source: [facility] POWERCHART Document Id: [id number] CDT!10 Letty Solis R.N. - 06/13/2013 9:23 AM CDT Postprocedure Education Postprocedure Education Entered On: 06/13/2013 9:24 CDT Performed On: 06/13/2013 9:23 CDT by LETTY SOLIS Education Postprocedure Education Grid Procedure Type : CTA Coronary Education Topics : Diet, Discharge instructions, Discharge planning, Infection Control Processes, Medications, take home, Plan of care, Progressive activity, Signs/Symptoms to report, Tubes/Drains/IV's, Wound/Incision care Individuals Taught : Patient Barriers to Learning : None evident Teaching Method : Explanation Teaching Evaluation : Verbalizes understanding LETTY SOLIS - 06/13/2013 9:23 CDT Source: [facility] POWERCHART Document Id: [id number] CDT!10 documented in this encounter Miscellaneous Notes Miscellaneous - Letty Solis R.N. - 06/13/2013 9:00 AM CDT Adult Admission Assessment Adult Admission Assessment Entered On: 06/13/2013 9:22 CDT Performed On: 06/13/2013 9:00 CDT by LETTY SOLIS Respiratory Respiratory Patient Stated Symptoms : None Respirations : Unlabored All Lobes Breath Sounds : Clear LETTY SOLIS - 06/13/2013 9:21 CDT Cardiovascular CV Patient Stated Symptoms : None Heart Rhythm : Regular Heart Sounds ICU : S1S2 LETTY SOLIS 06/13/2013 9:21 CDT Neurological Neuro Patient Stated Symptoms : None Orientation : Oriented x 3 Level of Consciousness : Alert Gait : Steady LETTY SOLIS - 06/13/2013 9:21 CDT Psycho/Emotional Pain Symptoms : No Affect/Behavior : Calm LETTY SOLIS 06/13/2013 9:21 CDT Gastrointestinal GI Patient Stated Symptoms : None LETTY SOLIS 06/13/2013 9:21 CDT Genitourinary Patient Stated Symptoms : None LETTY SOLIS 06/13/2013 9:21 CDT Integumentary Integumentary Patient Stated Symptoms : None Skin Integrity : Intact LETTY SOLIS 06/13/2013 9:21 CDT Jovon Sensory Perception Jovon : No impairment Moisture Jovon : Rarely moist Activity Jovon : Walks occasionally Mobility Jovon : No limitations Nutrition Jovon : Excellent Friction and Shear Jovon : No apparent problem Jovon Score : 22 LETTY SOLIS 06/13/2013 9:21 CDT Peripheral IV Peripheral IV Assess/Intervention Grid Peripheral IV #1 IV Activity : Start Number of Attempts : 1 Date of Insertion : 06/13/2013 CDT IV Site : Antecubital Laterality : Left Catheter Size : 18 Catheter Type : Over the needle Site Condition : No complications Drainage Description : None Site/Line Care : Secured with tape Dressing/ Activity : Intact, Transparent Flow/ Patency : No complications LETTY SOLIS - 06/13/2013 9:21 CDT Source: [employer] Document Id: [id number] CDT!47 Miscellaneous - Letty Solis R.N. - 06/13/2013 8:48 AM CDT Adult Admission History Adult Admission History Entered On: 06/13/2013 8:49 CDT Performed On: 06/13/2013 8:48 CDT by LETTY SOLIS General Info Preferred Name : Katlyn Admitted From : Non-Health Care Facility Point of Origin Mode of Arrival : Ambulatory Accompanied By : Spouse (Comment: Gabrielle [LETTY SOLIS - 06/13/2013 8:48 CDT] ) Chief Complaint : CTA Coronary Information Given By : Patient Languages : Setswana LETTY SOLIS - 06/13/2013 8:48 CDT Nutrition Nutrition Risk Factors by History Adult : None Home Diet : Regular LETTY SOLIS 06/13/2013 8:48 CDT Home Environment Current Daily Living Assistance : None Living Situation : Home independently Home Equipment : None Sensory Deficits : None Mobility Assistance Prior to Admission : Independent Current Home Treatments : None Professional Skilled Services : None LETTY SOLIS 06/13/2013 8:48 CDT Psychosocial Adult Domestic Abuse Concerns : None Christian Preference : No qualifying data available. LETTY SOLIS 06/13/2013 8:48 CDT Advance Directive Advanced Directives : No Advance Directive Additional Information : Yes (Comment: Advance Directive Packet given to patient [LETTY SOLIS 06/13/2013 8:48 CDT] ) LETTY SOLIS 06/13/2013 8:48 CDT Educ Needs Patient/Family Education Needs : Postoperative instructions, Preoperative instructions LETTY SOLIS 06/13/2013 8:48 CDT Learning Style Preference Adult Grid Patient : Printed materials, Verbal explanation Family : Printed materials, Verbal explanation LETTY SOLIS 06/13/2013 8:48 CDT Source: [facility] POWERCHART Document Id: [id number] CDT!31 documented in this encounter Plan of Treatment Upcoming Encounters Date Type Specialty Care Team Description 02/11/2022 Appointment Laboratory Medicine Neli Hearn M.D. [address] [place] [phone] (Wo rk) 02/14/2022 Office Visit Family Medicine Lilli Hearn M.D. [address] [place] [phone] (Stephon rk) documented as of this encounter Procedures Procedure Name Priority Date/Time Associated Diagnosis Comme nts CT CARDIAC Routine 06/13/2013 10:29 AM Results for this ANGIOGRAM WITH CDT procedure are in CORONARY ARTERIES the result s WITH IV CONTRAST section. CT CARDIAC Routine 06/13/2013 10:29 AM Results for this ANGIOGRAM WITH CDT procedure are in CORONARY ARTERIES the result s WITH IV CONTRAST section. documented in this encounter Results CT Cardiac Angiogram with Coronary Arteries (06/13/2013 10:29 AM CDT) Anatomical Region Laterality Modality Cardiac N/A Computed Tomography Specimen (Source) Anatomical Collection Method Collection Time Re ceived Time Location / / Volume Laterality 06/13/2013 10:29 AM CDT Impressions 06/13/2013 12:19 PM CDT 1. Findings related to the coronary zen alfredito will be dictated separately by the cardiology service. 2. Left lower lobe noncalcified pulmonar y nodule measuring [address] in 6 months in the absence of comparison studies. 3. Small hypervascular area within the r ight lobe of the liver, possibly flash fill hemangioma or perfus ional anomaly. Suggest dedicated liver mass CT for confirmation , again in the absence of comparison studies. Narrative 06/13/2013 12:19 PM CDT Comparison: None. TECHNIQUE: Axial angiographic phase imag es through the coronary arteries obtained after the intravenous administration of 106 cc Omnipaque 350. FINDINGS: Findings related to the coronary arterie s will be dictated separately by the cardiology service. Visualized thoracic aorta normal diamete r without evidence of dissection. Heart size normal. No pleural or pericar dial effusion. Visualized pulmonary arterial tree demon strates no focal filling defect. Lower lobe segmental and subsegm ental pulmonary arteries are suboptimally opacified. Calcified lymph nodes and granulomata. S mall noncalcified left lower lobe pulmonary nodule measuring 6 mm tanya ge 162 series 304. Hypervascularity within the right lobe o f liver measuring 1.6 cm image 228 series 304, nonspecific, most likely flash fill hemangioma or perfusional anomaly. Further characte rization is suggested. No acute fracture or destructive osseous abnormality. Procedure Note Otf Banegas M.D. / Provider, His garcia M.D. - 08/05/2016 Comparison: None. TECHNIQUE: Axial angiographic phase imag es through the coronary arteries obtained after the intravenous administration of 106 cc Omnipaque 350. FINDINGS: Findings related to the coronary arterie s will be dictated separately by the cardiology service. Visualized thoracic aorta normal diamete r without evidence of dissection. Heart size normal. No pleural or pericar dial effusion. Visualized pulmonary arterial tree demon strates no focal filling defect. Lower lobe segmental and subsegm ental pulmonary arteries are suboptimally opacified. Calcified lymph nodes and granulomata. S mall noncalcified left lower lobe pulmonary nodule measuring 6 mm tanya ge 162 series 304. Hypervascularity within the right lobe o f liver measuring 1.6 cm image 228 series 304, nonspecific, most likely flash fill hemangioma or perfusional anomaly. Further characte rization is suggested. No acute fracture or destructive osseous abnormality. IMPRESSION: 1. Findings related to the coronary zen alfredito will be dictated separately by the cardiology service. 2. Left lower lobe noncalcified pulmonar y nodule measuring [address] in 6 months in the absence of comparison studies. 3. Small hypervascular area within the r ight lobe of the liver, possibly flash fill hemangioma or perfus ional anomaly. Suggest dedicated liver mass CT for confirmation , again in the absence of comparison studies. Yuki R Brian R.T.(R)(CT), R.T.(R) IMG CT PROCEDURES CT Cardiac Coronary Arteries Angiogram (06/13/2013 10:29 AM CDT) Anatomical Region Laterality Modality Cardiac N/A Computed Tomography Specimen (Source) Anatomical Collection Method Collection Time Re ceived Time Location / / Volume Laterality 06/13/2013 10:29 AM CDT Impressions 06/13/2013 3:41 PM CDT 1. Mild nonobstructive coronary artery a therosclerosis. 2. Mild (25% - 49%) stenosis in the mid LAD and mild (25% - 49%) stenosis in the mid right coronary arter y. 3. Moderate sinus of Valsalva dilatation (46 mm). Mild mid ascending aorta dilatation (40 mm).. 4. Please see radiology report for addit ional CT findings. Narrative 06/13/2013 3:41 PM CDT TEST: ECG-gated Cardiac CT with contrast performed per the coronary CTA protocol. CLINICAL DATA Indication: Equivocal stress test; atypi jose chest pain. Referring provider: Dr. Krueger. Date of : 1945. Gender: Male. PROCEDURE DATA Equipment: [employer] CT750 HD 64-slic e scanner with rotation time 0.35 seconds. Gating method: Prospective. Dose modulation: 100 ms padding. Tube voltage: 140 kV. Tube current: 630mA. Estimated DLP: 804 mGy-cm. Estimated radiation dose: 11.2 mSv. Slice thickness: 0.625 mm. Medications: Omnipaque 106 cc, oral meto prolol 100 mg, IV metoprolol 15 mg, sublingual nitroglycerin 0.4 mg. Contrast rate: 5 cc/s. Complications: None. RESULTS: Technical quality: Adequate. Slightly lo w signal to noise ratio secondary to body habitus (weight 145 kg ). Coronary arteries: Dominance: Right. Left main coronary artery: Minimal (< 25 %) calcific stenosis. Left anterior descending artery: Mild (2 5% - 49%) mixed plaque stenosis in the mid LAD. Distal vessel i s essentially normal. Left circumflex artery: No significant d isease. Right coronary artery: Mild (25% - 49%) mixed plaque stenosis in the mid right coronary artery. Distal vessel is essentially normal. Cardiac findings: Normal left ventricula r size and wall thickness. No intracardiac thrombus or mass. No perica rdial effusion. Normally connected pulmonary veins. Aortic valve sclerosis. Mitral valve sclerosis. Great vessels: Moderate sinus of Valsalv a dilatation (46 mm). Mild mid ascending aorta dilatation (40 mm).. Procedure Note Tiana Flores M.B.B.S., M.D. / Provider Uzma M.D. - 08/05/2016 TEST: ECG-gated Cardiac CT with contrast performed per the coronary CTA protocol. CLINICAL DATA Indication: Equivocal stress test; atypi jose chest pain. Referring provider: Dr. Krueger. Date of : 1945. Gender: Male. PROCEDURE DATA Equipment: [employer] CT750 HD 64-slic e scanner with rotation time 0.35 seconds. Gating method: Prospective. Dose modulation: 100 ms padding. Tube voltage: 140 kV. Tube current: 630mA. Estimated DLP: 804 mGy-cm. Estimated radiation dose: 11.2 mSv. Slice thickness: 0.625 mm. Medications: Omnipaque 106 cc, oral meto prolol 100 mg, IV metoprolol 15 mg, sublingual nitroglycerin 0.4 mg. Contrast rate: 5 cc/s. Complications: None. RESULTS: Technical quality: Adequate. Slightly lo w signal to noise ratio secondary to body habitus (weight 145 kg ). Coronary arteries: Dominance: Right. Left main coronary artery: Minimal (< 25 %) calcific stenosis. Left anterior descending artery: Mild (2 5% - 49%) mixed plaque stenosis in the mid LAD. Distal vessel i s essentially normal. Left circumflex artery: No significant d isease. Right coronary artery: Mild (25% - 49%) mixed plaque stenosis in the mid right coronary artery. Distal vessel is essentially normal. Cardiac findings: Normal left ventricula r size and wall thickness. No intracardiac thrombus or mass. No perica rdial effusion. Normally connected pulmonary veins. Aortic valve sclerosis. Mitral valve sclerosis. Great vessels: Moderate sinus of Valsalv a dilatation (46 mm). Mild mid ascending aorta dilatation (40 mm).. IMPRESSION: 1. Mild nonobstructive coronary artery a therosclerosis. 2. Mild (25% - 49%) stenosis in the mid LAD and mild (25% - 49%) stenosis in the mid right coronary arter y. 3. Moderate sinus of Valsalva dilatation (46 mm). Mild mid ascending aorta dilatation (40 mm).. 4. Please see radiology report for addit ional CT findings. Yuki Torres R.T.(R)(CT), R.T.(R) IMG CT PROCEDURES documented in this encounter Visit Diagnoses Not on filedocumented in this encounter
--- OUTSIDE RECORDS SUMMARY | 2021-12-28 10:02 | XMS_ITS | Encounter Summary ---
:1945 Author Organization [facility] Address [address] [place] [address] Care Team Providers Name Role Phone Unavailable Primary Care Provider Unavailable Encounter Details Date Type Department Care Team Description 07/16/2014 Hospital Encounter HX [facility] JENNIFERWendy Riojas, COMMUNICATION ELECTRONIC TECHNICIAN, C.N.P. [address] [place] [phone] (Wo rk) Social History Tobacco Use Types [...] 1 to 4 times per year 11/2019 protestant services? 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 0 GLUCOSAMINE/CHONDR NOONAN A Take 1 tablet by 0 2013 SOD (OSTEO BI-FLEX ORAL) mouth 2 (two) times a day. omega-3 fatty acids 500 Take 2 tablets by 0 07/16 mg capsule mouth daily. Capsules 1200 mg, take 2 caps daily aspirin 81 mg capsule Take 1 tablet by 0 07/16/19 11 01/09/2018 mouth daily. documented as of this encounter Progress Notes Yolanda Colón, AMBER, C.N.P. - 07/16/2014 9:08 AM CDT [id number] CHIEF COMPLAINT/REASON FOR VISIT Patient comes in today for follow up of fasting blood work. HISTORY OF PRESENT ILLNESS He denies any concerns or complaints today. He is currently doing Medifast Diet and is recommended through his weight loss program that he have blood sugar and electrolytes checked throughout and the last time this was checked for 7 months it was recommended to complete every 6 months. The patient hasbeen increasing his exercise, and following the Medifast diet plan and has lost greater than 60 pounds over the past year. He is working very hard to get down to 200 pounds and is feeling very good. Hestates he has no further shortness of breath. He is no longer using his CPAP at night and is sleeping very well. He has an increase in energy and is very encouraged. He denies any other concerns or complaints today. PAST MEDICAL/SURGICAL HISTORY Obesity. Hypertension. Hyperlipidemia. MEDICATIONS Aspirin 81 mg. Bupropion. Fluticasone. Hydrochlorothiazide. Hytrin. Losartan. Naprosyn. Leopold-3. Osteo Bi-Flex. Pravastatin. Viagra. ALLERGIES TYLENOL. SYSTEMS REVIEW GENERAL: Denies fever, chills, sweats, or body aches. SKIN: No rashes or skin changes. HEENT: No blurred or double vision. Denies chronic sinus congestion, ST, or difficulty swallowing. RESPIRATORY: Denies shortness of breath, cough, or wheezing. CV: No chest pain, palpitations, or syncope. GI: Denies abdominal pain, nausea, vomiting, or diarrhea. Regular bowel movements. No blood in stool. : No pain or bleeding with urination. No difficulty starting or stopping urine stream. MUSCULOSKELETAL: No joint inflammation or tenderness. EXTREMITIES: No swelling in ankles. NEURO: No numbness or tingling. VITAL SIGNS Temperature 36.8, heart rate 66, blood pressure 138/78, O2 sat 96%. Height 172, weight 131, BMI 44.28. PHYSICAL EXAMINATION GENERAL: A pleasant 68-year-old male, no apparent distress. HEENT: Conjunctivae, TMs, nasal mucosa clear. NECK: Clear without cervical adenopathy. CHEST: Lungs clear to auscultation. Respirations equal and unlabored. HEART: Rate rhythm is regular. No murmur, gallop, or thrill. No pedal edema. EXTREMITIES: Pedal pulses are strong and palpable. IMPRESSION/REPORT/PLAN 1. Essential hypertension. 2. Obesity on weight loss plan. PLAN: Basic metabolic profile today. Will call him with results when they return. He can return in 1year for his annual physical exam. Patient voices understanding. Reinforced his regular exercise, low-fat, low-cholesterol diet. Much encouragement and reassurance was provided for his efforts thus far. His current medications were refilled for him and to last until his next physical. Follow up as directed. Yolanda Colón, C.N.P./pos Electronically Signed By: YOLANDA COLÓN CONE EXAMINER On: 07/22/2014 08:15 AM Source: [facility] MHSDOLBEYNONRADSYS Document Id: [id number] documented in this encounter Miscellaneous Notes Miscellaneous - Aleja Waters L.P.NFamilia - 07/29/2014 1:16 PM CDT rabenbergg-results Entered by ALEJA WATERS LPN on 29 Jul 2014 13:16:59 CDT Letter sent to Pt. From: SIDDHARTH SOTO LPN ([facility] [place] Nurse) To: [facility] Practice Nurse; Sent: 07/29/2014 12:56:47 CDT Subject: rabenbergg-results Pt called in stating he did not recived a results letter from his labs that were drawn on 07/16/14. Pt also states he was not notified of these results. I told pt all results were within normal limits.Pt would like a results letter sent to his home, address was verified. Please advise. Source: [facility] [employer] Document Id: [id number] Electronically signed by Conversion, [facility] Glue Clamp Operator [id number] at 08/21/2016 4:30 PM CDT Miscellaneous - Aleja Waters, L.P.N. - 07/29/2014 1:16 PM CDT Custom Result Letter 29 Jul 2014 FRANSICO MACDONALD [id number] [place] [id number] Dear FRANSICO MACDONALD, All Labs normal. Result Name Current Result Normal Range Sodium Lvl (mmol/L) 141 07/16/2014 135 - 145 Potassium Lvl (mmol/L) 4.1 07/16/2014 3.5 - 5.1 Chloride (mmol/L) 101 07/16/2014 98 - 107 CO2 (mmol/L) 28 07/16/2014 22 - 29 BUN (mg/dL) 21 07/16/2014 6 - 24 Creatinine (mg/dL) 0.9 07/16/2014 0.8 - 1.3 Calcium Lvl (mg/dL) 9.9 07/16/2014 8.8 - 10.3 AGAP (mmol/L) 12 07/16/2014 7 - 15 EGFR (MDRD) (mL/min/SA) >60.0 07/16/2014 >=60.0 - EGFR (MDRD) (mL/min/SA) >60.0 07/16/2014 >=60.0 - Glucose Lvl (mg/dL) 132 07/16/2014 70 - 140 Sincerely, ALEJA WATERS Electronic Signature Electronically Signed By: ALEJA WATERS LPN On: 29 Jul 2014 This document has images extracted. Source: [facility] [employer] Document Id: [id number] Electronically signed by Conversion, [facility] Glue Clamp Operator [id number] at 08/21/2016 4:30 PM CDT Miscellaneous - Yolanad Colón, COMMUNICATION ELECTRONIC TECHNICIAN, C.N.P. - 07/16/2014 12:58 PM CDT Results Notification From: YOLANDA COLÓN CONE EXAMINER Sent: 07/16/2014 12:58:32 CDT Show up: 07/16/2014 12:59:00 CDT Subject: Results Notification Actions: Notify patient of results notify Results: Date Result Name Value Ref Range 07/16/2014 09:45 Sodium Lvl 141 mmol/L (135 - 145) 07/16/2014 09:45 Potassium Lvl 4.1 mmol/L (3.5 - 5.1) 07/16/2014 09:45 Chloride 101 mmol/L (98 - 107) 07/16/2014 09:45 CO2 28 mmol/L (22 - 29) 07/16/2014 09:45 AGAP 12 mmol/L (7 - 15) 07/16/2014 09:45 Glucose Lvl 132 mg/dL (70 - 140) 07/16/2014 09:45 Creatinine 0.9 mg/dL (0.8 - 1.3) 07/16/2014 09:45 EGFR (MDRD) >60.0 mL/min/SA (>=60.0 - ) 07/16/2014 09:45 EGFR (MDRD) >60.0 mL/min/SA (>=60.0 - ) 07/16/2014 09:45 BUN 21 mg/dL (6 - 24) 07/16/2014 09:45 Calcium Lvl 9.9 mg/dL (8.8 - 10.3) Source: [facility] [employer] Document Id: [id number] Electronically signed by Conversion, [facility] Glue Clamp Operator [id number] at 08/21/2016 4:30 PM CDT Miscellaneous - Yolanda Colón APRN, C.N.P. - 07/16/2014 11:34 AM CDT Ambulatory Patient Summary [address] [place], [place] [phone] Visit Information Name: FRANSICO MACDONALD [facility] Number: [id number] Current Date: 07/16/2014 11:34:46 Physicians Attending Provider: YOLANDA COLÓN CONE EXAMINER Primary Care Provider: YOLANDA COLÓN CONE EXAMINER FRANSICO MACDONALD has been given the following [...] Oral, two times a day Routed to [facility] [address] [place] [address] fluticasone nasal (fluticasone 50 mcg/inh nasal spray) 1 [place](s), Nasal, once a day glucosamine-chondroitin (Osteo Bi-Flex) 1 tablets, Oral, two times a day hydrochlorothiazide (hydrochlorothiazide 25 mg oral tablet) 1 Tablet(s), Oral, once a day Routed to [facility] [address] [place] [address] losartan (losartan 100 mg oral tablet) 1 Tablet(s), Oral, once a day Routed to [facility] [address] [place] [address] Misc Prescription (Misc Prescription) 2 Tablet(s), once a day digestive health naproxen (Naprosyn 500 mg oral tablet) 1 Tablet(s), Oral, two times a day as needed for pain omega-3 polyunsaturated fatty acids (Leopold-500 oral capsule) 1 cap, Oral, once a day pravastatin (pravastatin 80 mg oral tablet) 1 Tablet(s), Oral, once a day (at bedtime) Routed to [address] [address] sildenafil (sildenafil 25 mg oral tablet) 1 tablet one hour prior to sexual activity, Oral, once a day as needed for Erectile dysfunction Routed to [address] [address] terazosin (Hytrin 1 mg oral capsule) 1 cap, Oral, once a day (at bedtime) Routed to [address] [address] Stop Taking the Following Medications: Medication list as of 07-16-14 11:34 Attention: If you have any medications at [...] of emergency. Electronically Signed By: YOLANDA COLÓN CONE EXAMINER Signed On:16-JUL-2014 11:34:35 Your Allergies & Intolerances Substance Reaction Symptoms Category Comments Tylenol Drug Your Problem List Problem Status Onset Comments Hypertension Essential (401.9) Active Hypercholesterolemia Active Obesity NOS Active Your Upcoming Appointments Date Time Location Provider No Appointments found Attention: Contact your local Clinic if further appointment detail needed. Your Goals/Additional instructions: Source: [facility] POWERCHART Document Id: [id number] Miscellaneous - Yolanda Colón APRN, C.N.P. - 07/16/2014 11:34 AM CDT Ambulatory Discharge Medication List [address] [phone] Visit Information Name: FRANSICO MACDONALD [facility] Number: [id number] Visit Date: 07/16/2014 11:34:44 Attending Provider: YOLANDA COLÓN NP Primary Care Provider: YOLANDA COLÓN CONE EXAMINER FRANSICO MACDONALD has been given the following [...] Oral, two times a day Routed to [address] [id number] fluticasone nasal (fluticasone 50 mcg/inh nasal spray) 1 [place](s), Nasal, once a day glucosamine-chondroitin (Osteo Bi-Flex) 1 tablets, Oral, two times a day hydrochlorothiazide (hydrochlorothiazide 25 mg oral tablet) 1 Tablet(s), Oral, once a day Routed to [address] [address] losartan (losartan 100 mg oral tablet) 1 Tablet(s), Oral, once a day Routed to [address] [address] Misc Prescription (Misc Prescription) 2 Tablet(s), once a day digestive health naproxen (Naprosyn 500 mg oral tablet) 1 Tablet(s), Oral, two times a day as needed for pain omega-3 polyunsaturated fatty acids (Leopold-500 oral capsule) 1 cap, Oral, once a day pravastatin (pravastatin 80 mg oral tablet) 1 Tablet(s), Oral, once a day (at bedtime) Routed to [address] [address] sildenafil (sildenafil 25 mg oral tablet) 1 tablet one hour prior to sexual activity, Oral, once a day as needed for Erectile dysfunction Routed to [address] [address] terazosin (Hytrin 1 mg oral capsule) 1 cap, Oral, once a day (at bedtime) Routed to [address] [address] Stop Taking the Following Medications: Medication list as of 07-16-14 11:34 Attention: If you have any medications at [...] of emergency. Electronically Signed By: YOLANDA COLÓN CONE EXAMINER Signed On:16-JUL-2014 11:34:35 Additional Information: Source: [facility] POWERCHART Document Id: [id number] Miscellaneous - Mervin Marquez, L.P.N. 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 Entered On: 07/16/2014 9:22 CDT Performed On: 07/16/2014 9:21 CDT by MERVIN MARQUEZ LPN Intake Chief Complaint : Follow up- fasting needs blood work Temperature Core : 36.8 DegC(Converted to: 98.2 DegF) Peripheral Pulse Rate : 66 /min Systolic Blood Pressure : 138 mmHg Diastolic Blood Pressure : 78 mmHg NIBP Mean : 98 mmHg Height : 172 cm(Converted to: 5 ft 8 inch(es), 68 inch(es)) Actual Weight : 131 kg(Converted to: 288 lb 13 oz) Dosing Weight Clinic : 131 kg Clinic BSA : 2.5 Body Mass Index : 44.28 kg/m2 MERVIN MARQUEZ LPN - 07/16/2014 9:21 CDT General Info Languages : Hebrew Is Patient Female and 13-50 no hysterectomy : No MERVIN MARQUEZ [employer] - 07/16/2014 9:21 CDT Subjective Pain Symptoms : No MERVIN MARQUEZ LPN - 07/16/2014 9:21 CDT Dependent Habits Tobacco Use/Currently Using : No Smoking Status : Former smoker MERVIN MARQUEZ [employer] - 07/16/2014 9:21 CDT Tobacco Use Grid Last Use : 40 YEARS AGO MERVIN MARQUEZ [employer] - 07/16/2014 9:21 CDT ID Screen Drug Resistant Organism : No Travel Within Last 21 Days : No Contact with someone with Ebola : No MERVIN MARQUEZ LPN - 07/16/2014 9:21 CDT Source: [employer] Document Id: [id number] CDT!28 documented in this encounter Plan of Treatment Upcoming Encounters Date Type Specialty Care Team Description 02/11/2022 Appointment Laboratory Medicine Neli Hearn M.D. [address] [place] [phone] (Stephon rk) 02/14/2022 Office Visit Family Medicine Lilli Hearn M.D. [address] [place] [phone] (Stephon rk) documented as of this encounter Procedures Procedure Name Priority Date/Time Associated Diagnosis Comme nts BASIC METABOLIC Routine 07/16/2014 9:45 AM Result s for this PANEL, S/P CDT procedure are i n the results section. documented in this encounter Results BMP (Basic Metabolic Panel) (07/16/2014 9:45 AM CDT) P athologist Signature Sodium, S 141 135 - 145 POWERCHART MMOLL Potassium, S 4.1 3.5 - 5.1 POWERCHART MMOLL Chloride, S 101 98 - 107 POWERCHART MMOLL CO2 Total 28 22 - 29 POWERCHART MMOLL BUN (Blood Urea 21 6 - 24 MGDL POWERCHART Nitrogen), S Creatinine 0.9 0.8 - 1.3 POWERCHART MGDL Calcium, Total, 9.9 8.8 - 10.3 POWERCHART S MGDL Anion Gap 12 7 - 15 MMOLL POWERCHART HXeGFR (MDRD) >60.0 >=60.0 POWERCHART MLMINSA eGFR >60.0 >=60.0 POWERCHART Black/ MLMINSA Guyanese Glucose 132 70 - 140 POWERCHART MGDL Specimen (Source) Anatomical Collection Method Collection Time Re ceived Time Location / / Volume Laterality Blood 07/16/2014 9:45 AM CDT Yolanda Colón APRN, C.N.P. LAB BLOOD ADD-ON Performing Organization Address City/State/ZIP Code Phon e Number POWERCHART documented in this encounter Visit Diagnoses Not on filedocumented in this encounter
--- OUTSIDE RECORDS SUMMARY | 2021-12-28 10:02 | XMS_ITS | Encounter Summary ---
:1945 Author Organization [facility] Address [address] [place] [address] Care Team Providers Name Role Phone Unavailable Primary Care Provider Unavailable Encounter Details Date Type Department Care Team Description 04/07/[address] [facility] JENNIFERWendy Riojas, RN ON SITE, C.N.P. 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 as of this encounter Last Filed Vital Signs Vital Sign Reading Time Taken Comments Blood Pressure 140/80 04/07/2015 9:39 AM SECURITY SYSTEMS INSTALLER Pulse 72 04/07/2015 9:16 AM SECURITY SYSTEMS INSTALLER Temperature - - Respiratory Rate 16 04/07/2015 9:16 AM SECURITY SYSTEMS INSTALLER Oxygen Saturation - - Inhaled Oxygen Concentration - - Weight 145 kg (319 lb 0.1 oz) 04/07/2015 9:16 AM SECURITY SYSTEMS INSTALLER Height 172 cm (5' 7.72) 04/07/2015 9:39 AM SECURITY SYSTEMS INSTALLER Body Mass Index 48.91 04/07/2015 9:16 AM SECURITY SYSTEMS INSTALLER documented in this encounter Medications at Time [...] Progress Notes Yolanda Colón, AMBER, C.N.P. - 04/07/2015 9:08 AM CST [id number] CHIEF COMPLAINT/REASON FOR VISIT He is here to follow up on his blood pressure. 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 He was seen 4 weeks ago for a blood pressure 168/92, and then 3 weeks ago, 164/100. We did start him on amlodipine 5 mg daily and he notes since then he has had a small amount of swelling in his feet but is manageable and not causing him any discomfort. He continues on his losartan hydrochlorothiazide 100/25. He is going this evening for a sleep study and will restart using his CPAP. 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 The patient denies any concerns or complaints today. He has been feeling better than his last visit and he can tell his blood pressure has been in better control. He has also restarted the Medifast diet andexercise hoping to lose weight. PAST MEDICAL/SURGICAL HISTORY PAST MEDICAL HISTORY: Benign essential hypertension. Hyperlipidemia. Obesity. Depression. Reflux. Psoriasis. BPH. MEDICATIONS Amlodipine 5 mg daily. Aspirin 81 mg. Bupropion 150 twice a day. Multivitamin. Flonase. Hytrin 1 mg. Losartan hydrochlorothiazide 100/25 daily. Naprosyn as needed for arthritic pain. [place]-3 daily. Omeprazole 20 daily. Osteo Bi-Flex. Pravastatin 80 bedtime Viagra. ALLERGIES TYLENOL. SYSTEMS REVIEW Ten point review of systems completed and all systems negative except for complaints as above. VITAL SIGNS Heart rate 72, respiratory 16, blood pressure 148/80 recheck 140/80, O2 sat 98%. Height 172, weight 144.7, BMI 48.1. PHYSICAL EXAMINATION A 69-year-old, pleasant male, no apparent distress. Conjunctivae, TMs, nasal mucosa clear. CHEST: Lungs clear to auscultation. HEART: Rate rhythm is regular. No murmur, gallop, or thrill. LOWER EXTREMITIES examined today with mild pedal edema. No pitting. Pedal pulses are strong and palpable. SKIN: [place] and warm. IMPRESSION/REPORT/PLAN Benign essential hypertension in good control. PLAN: We will continue on his amlodipine 5 mg as directed as well as his losartan hydrochlorothiazide. A refill was provided of the amlodipine for an additional 3 months. He will continue to monitor the swelling in his lower extremities. Encouraged him to use support stockings as well as keeping legs e levated at rest and increasing his fluid intake. Patient to have his cholesterol rechecked in later May and will return in June for repeat blood pressure check and evaluation of lower edema. Patientwill call if symptoms are worsening. Follow up as directed. Yolanda Colón APRN, C.N.P./pos Electronically Signed By: YOLANDA COLÓN CELL MANAGER On: 04/07/2015 03:12 PM Source: [facility] [id number] Document Id: [id number] RITY SYSTEMS INSTALLER documented in this encounter Miscellaneous Notes Miscellaneous - Yolanda Colón APRN, C.N.P. - 04/07/2015 10:05 AM SECURITY SYSTEMS INSTALLER Ambulatory Patient Summary [address] [id number] Visit Information Name: RFANSICO MACDONALD [facility] Number: [id number] Current Date: 04/07/2015 10:05:48 Physicians Attending Provider: YOLANDA COLÓN NP Primary [...] Tablet(s), Oral, once a day Routed to [address] [id number] aspirin (aspirin 81 mg oral tablet) 1 Tablet(s), Oral, once a day buPROPion (buPROPion SR 150 mg/12 hour oral tablet, sustained release) 1 Tablet(s), Oral, two times a day fluticasone nasal (fluticasone 50 mcg/inh nasal spray) 1 [place](s), Nasal, once a day glucosamine-chondroitin (Osteo Bi-Flex) 1 tablets, Oral, two times a day losartan-hydrochlorothiazide (losartan-hydrochlorothiazide 100 mg-25 mg oral tablet) 1 Tablet(s), Oral, once a day (Hyzaar) multivitamin with minerals (Centrum Silver Men's oral tablet) 1 Tablet(s), Oral, once a day naproxen (Naprosyn 500 mg oral tablet) 1 Tablet(s), Oral, two times a day as needed for pain omega-3 polyunsaturated fatty acids ([place]-500 oral capsule) 1 cap, Oral, once a [...] unable to fall asleep for sleep study Stop Taking the Following Medications: Medication list as of 04-07-15 10:05 Attention: If you have any medications at [...] of emergency. Electronically Signed By: YOLANDA COLÓN CELL MANAGER Signed On:07-APR-2015 10:05:37 Your Allergies & Intolerances Substance Reaction Symptoms Category Comments Tylenol Drug Your Problem List Problem Status Onset Comments Hypertension Essential (401.9) Active Hypercholesterolemia Active Obesity NOS Active Psoriasis NOS Active Your Upcoming Appointments Date Time Location Provider 04/07/2015 19:00 [facility] Sleep Room 1 04/16/2015 08:45 EMILY Dumas MD, Chester Melgoza 06/12/2015 09:00 [facility] Attention: [...] if you dont have one. Go to [email or web address] and click on Create Your Account. Then, follow the directions to complete the online form. Youll be asked for your [facility] number which you can find at the top of this document. Your Goals/Additional instructions: Source: [facility] POWERCHART Document Id: [id number] RITY SYSTEMS INSTALLER Miscellaneous - Yloanda Colón APRN, C.N.P. - 04/07/2015 10:05 AM SECURITY SYSTEMS INSTALLER Ambulatory Discharge Medication List [address] [id number] Visit Information Name: FRANSICO MACDONALD [facility] Number: [id number] Visit Date: 04/07/2015 10:05:47 Attending Provider: YOLANDA COLÓN CELL MANAGER Primary Care Provider: YOLANDA COLÓN CELL MANAGER FRANSICO MACDONALD has been given the following [...] Tablet(s), Oral, once a day Routed to [address] [address] aspirin (aspirin 81 mg oral tablet) 1 Tablet(s), Oral, once a day buPROPion (buPROPion SR 150 mg/12 hour oral tablet, sustained release) 1 Tablet(s), Oral, two times a day fluticasone nasal (fluticasone 50 mcg/inh nasal spray) 1 [place](s), Nasal, once a day glucosamine-chondroitin (Osteo Bi-Flex) 1 tablets, Oral, two times a day losartan-hydrochlorothiazide (losartan-hydrochlorothiazide 100 mg-25 mg oral tablet) 1 Tablet(s), Oral, once a day (Hyzaar) multivitamin with minerals (Centrum Silver Men's oral tablet) 1 Tablet(s), Oral, once a day naproxen (Naprosyn 500 mg oral tablet) 1 Tablet(s), Oral, two times a day as needed for pain omega-3 polyunsaturated fatty acids ([place]-500 oral capsule) 1 cap, Oral, once a [...] unable to fall asleep for sleep study Stop Taking the Following Medications: Medication list as of 04-07-15 10:05 Attention: If you have any medications at [...] of emergency. Electronically Signed By: YOLANDA COLÓN CELL MANAGER Signed On:07-APR-2015 10:05:37 Additional Information: [facility] Document Id: [id number] RITY SYSTEMS INSTALLER Miscellaneous - Yolanda Colón APRN, C.N.P. - 04/07/2015 9:39 AM SECURITY SYSTEMS INSTALLER Ambulatory Vitals Height Weight Ambulatory Vitals Height Weight Entered On: 04/07/2015 9:39 SECURITY SYSTEMS INSTALLER Performed On: 04/07/2015 9:39 SECURITY SYSTEMS INSTALLER by YOLANDA COLÓN NP Vitals/Ht/Wt Systolic Blood Pressure : 140 mmHg Diastolic Blood Pressure : 80 mmHg NIBP Mean : 100 mmHg Height : 172 cm(Converted to: 5 ft 8 inch(es), 68 inch(es)) YOLANDA COLÓN CELL MANAGER - 04/07/2015 9:39 SECURITY SYSTEMS INSTALLER [facility] Document Id: [id number] SECURITY SYSTEMS INSTALLER!6 RITY SYSTEMS INSTALLER Miscellaneous - Aleja Waters L.P.NFamilia - 04/07/2015 9:16 AM CST Adult Sports Announcer Intake/History Adult Sports Announcer Intake/History Entered On: 04/07/2015 9:19 SECURITY SYSTEMS INSTALLER Performed On: 04/07/2015 9:16 SECURITY SYSTEMS INSTALLER by ALEJA WATERS LPN Intake Chief Complaint : F/U B.P. Peripheral Pulse Rate : 72 /min Respiratory Rate : 16 /min Systolic Blood Pressure : 148 mmHg (HI) Diastolic Blood Pressure : 80 mmHg NIBP Mean : 103 mmHg SpO2 : 98 % Height : 172 cm(Converted to: 5 ft 8 inch(es), 68 inch(es)) Actual Weight : 144.7 kg(Converted to: 319 lb 0 oz) Dosing Weight Clinic : 144.7 kg Clinic BSA : 2.63 Body Mass Index : 48.91 kg/m2 ALEJA WATERS LPN - 04/07/2015 9:16 SECURITY SYSTEMS INSTALLER General Info Languages : Greenlandic Is Patient Female and 13-50 no hysterectomy : No ALEJA WATERS LPN - 04/07/2015 9:16 SECURITY SYSTEMS INSTALLER Subjective Pain Symptoms : No ALEJA WATERS LPN - 04/07/2015 9:16 SECURITY SYSTEMS INSTALLER Dependent Habits Smoking Status : Never smoker Tobacco 2A : No Tobacco Use/Currently Using : No Tobacco Use/Last 30 Days : No Tobacco Use/Last 12 months : No ALEJA WATERS LPN - 04/07/2015 9:16 SECURITY SYSTEMS INSTALLER Caffeine Use Grid Caffeine Use : None ALEJA WATERS LPN - 04/07/2015 9:16 SECURITY SYSTEMS INSTALLER Recreational Drug Use Grid Drug Use : None ALEJA WATERS LPN - 04/07/2015 9:16 SECURITY SYSTEMS INSTALLER Source: [facility] POWERCHART Document Id: [id number] SECURITY SYSTEMS INSTALLER!31 RITY SYSTEMS INSTALLER documented in this encounter Plan of Treatment Upcoming Encounters Date Type Specialty Care Team Description 02/11/2022 Appointment Laboratory Medicine Neli Hearn M.D. [address] [place] [phone] (Wo rk) 02/14/2022 Office Visit Family Medicine Lilli Hearn M.D. [address] [place] [phone] (Wo rk) documented as of this encounter Visit Diagnoses Not on filedocumented in this encounter
--- OUTSIDE RECORDS SUMMARY | 2021-12-28 10:02 | XMS_ITS | Encounter Summary ---
:1945 Author Organization [facility] Address [address] [place] [address] Care Team Providers Name Role Phone Unavailable Primary Care Provider Unavailable Encounter Details Date Type Department Care Team Description 02/28/2013 Hospital Encounter HX [facility] JENNIFERWendy Riojas, ASSOCIATE TRAINER, C.N.P. [address] [place] [phone] (Wo rk) Social History Tobacco Use Types [...] 1 to 4 times per year 11/2019 gnosticist services? 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 documented as of this encounter Last Filed Vital Signs Vital Sign Reading Time Taken Comments Blood Pressure 136/94 02/28/2013 9:12 AM SHELL FREEZING MACHINE OPERATOR Pulse 87 02/28/2013 9:00 AM SHELL FREEZING MACHINE OPERATOR Temperature - - Respiratory Rate - - Oxygen Saturation - - Inhaled Oxygen Concentration - - Weight 149 kg (329 lb 2.4 oz) 02/28/2013 9:00 AM SHELL FREEZING MACHINE OPERATOR Height 172 cm (5' 7.72) 02/28/2013 9:00 AM SHELL FREEZING MACHINE OPERATOR Body Mass Index 50.47 02/28/2013 9:00 AM SHELL FREEZING MACHINE OPERATOR documented in this encounter Medications at Time of Discharge Medication Sig Dispensed Refills Start Date End Date aspirin [address] tablet Take 81 mg by mouth. 0 aspirin 81 mg capsule Take 1 tablet by 0 07/16/19 11 01/09/2018 mouth daily. documented as of this encounter H&P Notes Yolanda Colón APRN, C.N.P. - 02/28/2013 8:44 AM CST [id number] CHIEF COMPLAINT/REASON FOR VISIT Medhat is here for a multiple concerns. 1. He needs medication refills for his maintenance medications. 2. Concerned about his weight. 3. Complaining of a chest discomfort. 4. He is due for his annual blood work. HISTORY OF PRESENT ILLNESS 1. He is here to establish care with me. He is on medications for BPH and hypertension as well as hyperlipidemia and he is needing them refilled and needs blood work accordingly. He is complaining of some chest discomfort. He has noticed this for over a year but feels it is becoming more frequent. He d escribes it not necessarily as a pain but a tightness or ache in the left side of his chest. He notices it more days than not throughout the week, lasting minutes to hours. He does complain of some shortness of breath with exertion. However, he attributes this to his weight. 2. Complains of continued weight gain and inability to lose weight. He has tried multiple diets. He is not interested in having any type of gastric surgery nor is he wishing to go on medications for weight loss. He is wondering if we can set him up with a dietitian to help him with weight loss. He denies regular exercise due to overall aches and pains. He does exercise more in the summer with trying to get walking in every day. He admits that he is currently laid off from his familia job however, when he is familia it does make it difficult for him to get regular exercise. PAST MEDICAL/SURGICAL HISTORY Hypertension. Hyperlipidemia. Anxiety. BPH. Reflux. Obesity. 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 No regular alcohol use. No regular exercise. FAMILY HISTORY Father with coronary artery disease. Brother with prostate cancer. Mother with breast cancer and dementia. MEDICATIONS Aspirin 81mg. Bupropion-SR 150 1 tablet twice a day. Multivitamins. Fluticasone. Hydrochlorothiazide 25 mg. Hytrin 1 mg. Losartan 100 mg. Naprosyn as needed for arthritic pain. Omeprazole 20. Pravastatin 40, 1.5 tablets daily. SYSTEMS REVIEW HEENT: Negative. CHEST: Denies palpitations. Denies chest pain. The aching sensation as described above. No symptoms on exertion. No chest pain at night. GI: No nausea, vomiting, diarrhea, regular bowel movements with no blood in stool or urine. : No difficulty starting or stopping stream. No urinary frequency. MUSCULOSKELETAL: He complains of generalized aches and pains. PSYCHIATRIC: He does complain of anxiety. However, it is much improved with the medication. VITAL SIGNS Height 172, weight 149.3, BMI 50.47, heart rate 87, blood pressure 136/94. O2 sat 98%. PHYSICAL EXAMINATION A 67-year-old pleasant male in no apparent distress. HEENT: Pupils equal, round, react to light, accommodating. Conjunctivae, TMs, nasal mucosa clear. Neck is nontender. No cervical adenopathy. No thyromegaly. LUNGS: Clear to auscultation. HEART: Rate, rhythm is regular. No murmur, gallop or thrill. No JVD or carotid bruits. ABDOMEN: Abdomen is obese, nontender. No palpable mass or organomegaly. No rebound or guarding. GENITOURINARY: Deferred today. MUSCULOSKELETAL: No joint inflammation or tenderness. No pedal edema. Cranial nerves I through XII intact. IMPRESSION/REPORT/PLAN 1. Hypertension. 2. Hyperlipidemia. 3. Chest pain. 4. Obesity. 5. Benign prostatic hyperplasia (BPH). PLAN: Lab work today, CBC, comprehensive metabolic profile, PSA and lipid. Will call him with all results when they return and make any adjustments in his medications. Otherwise all of his medications will be refilled as listed above for 1 year. Discussed having further cardiology testing. He did agree with having an adenosine echocardiogram. Will set that up for him. Also a dietary consult with Rai was made to help him begin with his weight loss management. Reinforced low-fat, low-cholesterol diet, lowering portion sizes, getting regular exercise. Encouraged annual physical exams with colonoscopy every 10 years. He is due for this now and at this point he did decline this today. Also declines flu shot, pneumonia shot and shingles shot today. Will followup as directed. Linda BentleyNIsadora/carmenza Electronically Signed By: YOLANDA COLÓN WEB DATABASE DEVELOPER On: 03/04/2013 02:11 PM Source: [facility] MHSDOLBEYNONRADSYS Document Id: [id number] L FREEZING MACHINE OPERATOR documented in this encounter Miscellaneous Notes Miscellaneous - Ana Cristina Mayer - 06/24/2013 10:47 AM CDT YOLANDA COLÓN Document Contains Addenda Addendum by MERVIN JAUREGUI RN on 24 June 2013 11:11:59 CDT From: MERVIN JAUREGUI RN ([facility] Nurse) To: YOLANDA COLÓN WEB DATABASE DEVELOPER; Sent: 06/24/2013 11:11:59 CDT Subject: FW: YOLANDA COLÓN Patient looking for Heart Scan results. From: ANA CRISTINA MAYER To: [facility] Nurse; Cc: [facility]UM[facility]; Sent: 06/24/2013 10:47:20 CDT Subject: YOLANDA COLÓN If you need a prescription refill please call your pharmacy. Please allow 3 business days for processing. Call Center Template: ?? May we leave a message for you on this phone? Yes, but he said that he will be home today. ?? How soon do you need a call back? ?? What can I help you with today? Fransico had a heart scan in [place] in the and he is calling for the results. I did tell him that she is not in the [facility] today. ?? If Medication Refill: o What is the medication? o What pharmacy do you use? o Have you contacted your pharmacy regarding this request? I will send this information to the appropriate staff member who will look into your concern. If thenurse needs to talk to you he or she will call you back within two hours. Thank you for calling [facility]. Source: [facility] POWERCHART Document Id: [id number] Electronically signed by Conversion, [facility] Back Hoe Machine Operator [id number] at 08/24/2016 1:54 PM CDT Miscellaneous - Yolanda Colón APRN, C.N.P. - 03/04/2013 11:41 AM SHELL FREEZING MACHINE OPERATOR Custom Result Letter 04 March 2013 FRANSICO MACDONALD [id number] [facility] [id number] Dear FRANSICO MACDONALD, I am sending you a copy of your rescent blood work from your physical exam on 02/28/13. As you can see, all of your results are excellent, except for the elevated cholesterol. I would like for you to increase your pravastatin to 80 mg every night. If you have 40 mg tablets at home, you can take 2 tablets at bedtime. I sent a refill into your pharmacy for an 80 mg tablet with your next fill, so then you would just take 1 tablet at bedtime. We can recheck your cholesterol in 6 months. It was my pleasure meeting with you. Please call with any questions [phone]. Have a Merry Kevin and Happy New Year! Result Name Current Result Previous Result Normal Range Sodium Lvl (mmol/L) 138 02/28/2013 139 06/07/2012 135 - 145 Potassium Lvl (mmol/L) 4.0 02/28/2013 4.0 06/07/2012 3.5 - 5.0 Chloride (mmol/L) 100 02/28/2013 98 06/07/2012 95 - 106 CO2 (mmol/L) 26 02/28/2013 28 06/07/2012 21 - 32 AGAP (mmol/L) 12 02/28/2013 (H) 17 06/07/2012 7 - 15 Alkaline Phosphatase (U/L) 68 02/28/2013 34 - 114 Glucose Lvl (mg/dL) 135 02/28/2013 98 06/07/2012 70 - 139 Creatinine (mg/dL) 1.0 02/28/2013 0.9 06/07/2012 0.8 - 1.3 EGFR (MDRD) >60.0 02/28/2013 >60.0 06/07/2012 >=60.0 - EGFR (MDRD) >60.0 02/28/2013 >60.0 06/07/2012 >=60.0 - BUN (mg/dL) 16 02/28/2013 14 06/07/2012 5 - 24 Calcium Lvl (mg/dL) 9.9 02/28/2013 9.9 06/07/2012 8.9 - 10.1 Protein Total (g/dL) 7.1 02/28/2013 6.2 - 7.5 Albumin Lvl (g/dL) 4.5 02/28/2013 3.0 - 5.0 AST (U/L) 26 02/28/2013 22 08/14/2012 3 - 35 ALT (U/L) 32 02/28/2013 29 08/14/2012 6 - 50 [id number] Total (mg/dL) 0.6 02/28/2013 0.1 - 1.2 Cholesterol (mg/dL) (H) 219 02/28/2013 188 08/14/2012 (H) 214 06/07/2012 120 - 200 Trig (mg/dL) (H) 229 02/28/2013 151 08/14/2012 (H) 377 06/07/2012 - <=149 HDL (mg/dL) (L) 35 02/28/2013 (L) 38 08/14/2012 (L) 31 06/07/2012 >=40 - LDL Calculated (mg/dL) (H) 138 02/28/2013 120 08/14/2012 108 06/07/2012 60 - 130 Chol/HDL Ratio (H) 6.3 02/28/2013 (H) 4.9 08/14/2012 (H) 6.9 06/07/2012 0.0 - 4.5 LDL/HDL 4 02/28/2013 3 08/14/2012 3 06/07/2012 PSA (ng/mL) 1.2 02/28/2013 - <=4.5 Hgb (g/dL) 14.9 02/28/2013 14.9 06/07/2012 13.5 - 17.5 Hct (%) 44.2 02/28/2013 38.8 - 50.0 WBC (x10(9)/L) 6.6 02/28/2013 3.5 - 10.5 RBC (x10(12)/L) 5.08 02/28/2013 4.32 - 5.72 MCV (fL) 87.0 02/28/2013 81.2 - 95.1 RDW (%) 12.7 02/28/2013 11.8 - 15.6 Platelet (x10(9)/L) 251 02/28/2013 150 - 450 Neutro Absolute (10(9)/L) 3.62 02/28/2013 1.70 - 7.00 Lymph Absolute (x10(9)/L) 2.24 02/28/2013 0.90 - 2.90 [place] Absolute (x10(9)/L) 0.66 02/28/2013 0.30 - 0.90 Eos Absolute (x10(9)/L) <0.50 02/28/2013 0.05 - 0.50 Baso Absolute (x10(9)/L) <0.50 02/28/2013 0.00 - 0.30 Differential? Auto 02/28/2013 UA Color Yellow 02/28/2013 Yellow - UA Spec Grav 1.020 02/28/2013 1.000 - 1.030 UA pH 7.0 02/28/2013 5.0 - 9.0 UA Protein Negative 02/28/2013 Negative - UA Glucose Negative 02/28/2013 Negative - UA Ketones Negative 02/28/2013 Negative - UA Bili Negative 02/28/2013 Negative - UA Urobilinogen 0.2 02/28/2013 0.1 - 2.0 UA Blood Negative 02/28/2013 Negative - UA Nitrite Negative 02/28/2013 Negative - UA Leuk Est Negative 02/28/2013 Negative - UA Appear Clear 02/28/2013 Clear - Sincerely, YOLANDA COLÓN [address] [place] [id number] Electronic Signature Electronically Signed By: YOLANDA COLÓN NP On: 04 March 2013 This document has images extracted. Source: [facility] POWERCHART Document Id: [id number] Electronically signed by Conversion, [facility] Back Hoe Machine Operator [id number] at 08/24/2016 1:54 PM CDT Miscellaneous - Yolanda Colón APRN, C.N.P. - 03/04/2013 11:37 AM SHELL FREEZING MACHINE OPERATOR Ambulatory Patient Summary [address] [address] Visit Information Name: FRANSICO MACDONALD [facility] Number: [id number] Current Date: 03/04/2013 11:37:34 Physicians Attending Provider: YOLANDA COLÓN WEB DATABASE DEVELOPER Primary Care Provider: YOLANDA COLÓN WEB DATABASE DEVELOPER FRANSICO MACDONALD has been given the following [...] you have problems taking your medications. Medication/Strength Dose Route Frequency Indications/Special Instructions/Comments/Notes pravastatin (pravastatin 80 mg oral tablet) 80 mg Oral once a day (at bedtime) fluticasone nasal (fluticasone 50 mcg/inh nasal spray) 1 spray(s) Nasal once a day omeprazole (omeprazole 20 mg oral delayed release capsule) 20 mg Oral once a day terazosin (Hytrin 1 mg oral capsule) 1 mg Oral once a day (at bedtime) losartan (losartan 100 mg oral tablet) 100 mg Oral once a day buPROPion (buPROPion SR 150 mg/12 hour oral tablet, sustained release) 150 mg Oral two times a day naproxen (Naprosyn 500 mg oral tablet) 500 mg Oral two times a day as needed for pain hydrochlorothiazide (hydrochlorothiazide 25 mg oral tablet) 25 mg Oral once a day multivitamin with minerals (Centrum Silver) 1 once a day aspirin (aspirin 81 mg [...] at all times in case of emergency. Your Allergies & Intolerances Substance Reaction Symptoms Category Comments Tylenol Drug Your Problem List Problem Status Onset Comments Hypertension Essential (401.9) Active Hypercholesterolemia Active Obesity NOS Active Your Upcoming Appointments Date Time Location Reason Provider 04/01/2013 09:00 MAQN Land Leasing Examiner obesity, dietary education Crystal Danielson 04/09/2013 09:00 MAQN Nuc Med CHEST PAIN - ADENOSINE 2 DAY, WEIGHT 329, SCHEDULED WITH [facility] MAQN NM RM 1 04/11/2013 09:00 MAQN Nuc Med CHEST PAIN, ADENOSINE RESTING IMAGES ONLY, WEIGHT 329, SCHEDULED WITH [facility] MAQN NM RM 1 Attention: Contact your local Clinic if further appointment detail needed. Your Goals/Additional instructions: [facility] P[facility] Document Id: [id number] L FREEZING MACHINE OPERATOR Miscellaneous - Yolanda Colón APRN, C.N.P. - 03/04/2013 11:37 AM SHELL FREEZING MACHINE OPERATOR Ambulatory Depart Summary [address] [address] Visit Information Name: FRANSICO MACDONALD [facility] Number: [id number] Visit Date: 03/04/2013 11:37:33 Attending Provider: YOLANDA COLÓN WEB DATABASE DEVELOPER Primary Care Provider: YOLANDA COLÓN WEB DATABASE DEVELOPER ROSEMARIEFRNASICO DOUGLAS has been given the following list of medications: Your Medications It is important to take your medications as directed. Use a pill box or chart to help remind you to take your medications. Please let your doctor or nurse know if you have problems taking your medications. Medication/Strength Dose Route Frequency Indications/Special Instructions/Comments/Notes pravastatin (pravastatin 80 mg oral tablet) 80 mg Oral once a day (at bedtime) fluticasone nasal (fluticasone 50 mcg/inh nasal spray) 1 spray(s) Nasal once a day omeprazole (omeprazole 20 mg oral delayed release capsule) 20 mg Oral once a day terazosin (Hytrin 1 mg oral capsule) 1 mg Oral once a day (at bedtime) losartan (losartan 100 mg oral tablet) 100 mg Oral once a day buPROPion (buPROPion SR 150 mg/12 hour oral tablet, sustained release) 150 mg Oral two times a day naproxen (Naprosyn 500 mg oral tablet) 500 mg Oral two times a day as needed for pain hydrochlorothiazide (hydrochlorothiazide 25 mg oral tablet) 25 mg Oral once a day multivitamin with minerals (Centrum Silver) 1 once a day aspirin (aspirin 81 mg [...] at all times in case of emergency. Additional Information: Source: [facility] [employer] SystemsCHART Document Id: [id number] L FREEZING MACHINE OPERATOR Miscellaneous - Conversion, Historical Provider Ser - 03/01/2013 9:27 AM SHELL FREEZING MACHINE OPERATOR REFERRAL TO DERMATOLOGY - [place], [place] From: EVELYN MOLINA (YUMIKO [facility] Patient Access) Cc: AKOSUA MONTENEGRO; Sent: 03/01/2013 09:27:09 SHELL FREEZING MACHINE OPERATOR Subject: REFERRAL TO DERMATOLOGY - [place], [place] Template of screen: Location of appointment: [place], [place] Provider scheduled with:Dr. Kellie Cm Date and time of appt:04/04/13 145 pm Reason for appt:psoriasis How patient was notified: (x ) in person ( )via phone ( ) left message ( ) sent letter Additional comments: Records to be faxed to:[phone] Source: [facility] POWERCHART Document Id: [id number] Miscellaneous - Katy Molina LFamiliaP.N. - 02/28/2013 9:12 AM CST Ambulatory Vitals Height Weight Ambulatory Vitals Height Weight Entered On: 02/28/2013 9:13 SHELL FREEZING MACHINE OPERATOR Performed On: 02/28/2013 9:12 SHELL FREEZING MACHINE OPERATOR by KATY MOLINA LPN Vitals/Ht/Wt Systolic Blood Pressure : 136 mmHg Diastolic Blood Pressure : 94 mmHg (>HHI) NIBP Mean : 108 mmHg KATY MOLINA LPN - 02/28/2013 9:12 SHELL FREEZING MACHINE OPERATOR Source: [facility] POWERCHART Document Id: [id number] SHELL FREEZING MACHINE OPERATOR!5 L FREEZING MACHINE OPERATOR Candido - Katy Molina LFamiliaP.N. - 02/28/2013 9:07 AM CST Health Assessment Health Assessment Entered On: 02/28/2013 9:08 SHELL FREEZING MACHINE OPERATOR Performed On: 02/28/2013 9:07 SHELL FREEZING MACHINE OPERATOR by KATY MOLINA LPN Health Assessment Complete Health Assessment Complete or Modified : Annual Health Assessment Annual Health Assessment Completed : Yes KATY MOLINA LPN - 02/28/2013 9:07 SHELL FREEZING MACHINE OPERATOR Nutrition Nutrition Risk Factors by History Adult : Active eating disorder KATY MOLINA LPN - 02/28/2013 9:07 SHELL FREEZING MACHINE OPERATOR Functional Current Daily Living Assistance : None KATY MOLINA LPN - 02/28/2013 9:07 SHELL FREEZING MACHINE OPERATOR Dependent Habits Tobacco Use/Currently Using : No Smoking Status : Never smoker KATY MOLINA LPN - 02/28/2013 9:07 SHELL FREEZING MACHINE OPERATOR Tobacco Use Grid Last Use : 40 YEARS AGO KATY MOLINA LPN - 02/28/2013 9:07 SHELL FREEZING MACHINE OPERATOR Alcohol Use : Yes KATY MOLINA LPN - 02/28/2013 9:07 SHELL FREEZING MACHINE OPERATOR AUDIT Tool How Often Do You Have A Drink : Monthly or less How Many Drinks in a Day When Drinking : 1 or 2 Six or More Drinks On One Occassion : Never Audit Phase 1 Score : 1 KATY MOLINA LPN - 02/28/2013 9:07 SHELL FREEZING MACHINE OPERATOR Psychosocial Domestic Abuse Concerns : None KATY MOLINA LPN - 02/28/2013 9:07 SHELL FREEZING MACHINE OPERATOR Advance Directive Advanced Directives : No KATY MOLINA LPN - 02/28/2013 9:07 SHELL FREEZING MACHINE OPERATOR Educ Needs Learning Style Preference Adult Grid Patient : None Family : None KATY MOLINA LPN - 02/28/2013 9:07 SHELL FREEZING MACHINE OPERATOR Source: [facility] POWERCHART Document Id: [id number] SHELL FREEZING MACHINE OPERATOR!28 L FREEZING MACHINE OPERATOR Miscellaneous - Katy Molina L.P.NFamilia - 02/28/2013 9:00 AM CST Adult Animal Nutrition Consultant Intake/History Document Has Been Updated Adult Animal Nutrition Consultant Intake/History Entered On: 02/28/2013 9:06 SHELL FREEZING MACHINE OPERATOR Performed On: 02/28/2013 9:00 SHELL FREEZING MACHINE OPERATOR by KATY MOLINA FINDING FASTENER Intake Chief Complaint : 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 PNEUMO AND FLU SHOT KATY MOLINA LPN - 02/28/2013 9:08 SHELL FREEZING MACHINE OPERATOR Peripheral Pulse Rate : 87 /min Systolic Blood Pressure : 156 mmHg (HI) Diastolic Blood Pressure : 100 mmHg (>HHI) NIBP Mean : 119 mmHg SpO2 : 98 % Height : 172 cm(Converted to: 5 ft 8 inch(es), 67.72 inch(es)) Actual Weight : 149.3 kg(Converted to: 329 lb 2 oz) Dosing Weight Clinic : 149.3 kg Clinic BSA : 2.67 Body Mass Index : 50.47 kg/m2 KATY MOLINA LPN - 02/28/2013 9:00 SHELL FREEZING MACHINE OPERATOR General Info Information Given By : Patient Languages : Qatari KATY MOLINA LPN - 02/28/2013 9:00 SHELL FREEZING MACHINE OPERATOR Subjective Pain Symptoms : Yes KATY MOLINA LPN - 02/28/2013 9:00 SHELL FREEZING MACHINE OPERATOR Pain Pain Assessment Grid Pain 1 Location : Other: RIGHT UPPER PA IN KATY MOLINA LPN - 02/28/2013 9:00 SHELL FREEZING MACHINE OPERATOR Dependent Habits Tobacco Use/Currently Using : No Smoking Status : Former smoker KATY MOLINA [facility] - 02/28/2013 9:00 SHELL FREEZING MACHINE OPERATOR Tobacco Use Grid Last Use : 40 YEARS AGO Comments (Comment: CHEWING TOBACCO [KATY MOLINA [facility] - 02/28/2013 9:00 SHELL FREEZING MACHINE OPERATOR] ) KATY MOLINA Suresh FINDING FASTENER - 02/28/2013 9:00 SHELL FREEZING MACHINE OPERATOR Alcohol Use : Yes KTAY MOLINA [facility] - 02/28/2013 9:00 SHELL FREEZING MACHINE OPERATOR Source: [facility] POWERCHART Document Id: [id number] SHELL FREEZING MACHINE OPERATOR!3 L FREEZING MACHINE OPERATOR documented in this encounter Plan of Treatment Upcoming Encounters Date Type Specialty Care Team Description 02/11/2022 Appointment Laboratory Medicine Neli Hearn M.D. [address] [place] [phone] (Wo rk) 02/14/2022 Office Visit Family Medicine Lilli Hearn M.D. [address] [facility] [place] [phone] (Wo rk) documented as of this encounter Procedures Procedure Name Priority Date/Time Associated Comments Diagnosis LIPID PANEL, S Routine 02/28/2013 10:20 Results f or this AM SHELL FREEZING MACHINE OPERATOR procedure are i n the results section. PROSTATE-SPECIFIC AG Routine 02/28/2013 10:20 Res ults for this (PSA) SCRN, S AM SHELL FREEZING MACHINE OPERATOR procedure are in the results section. AUTOMATED Routine 02/28/2013 10:20 Results for this DIFFERENTIAL, B AM SHELL FREEZING MACHINE OPERATOR procedure ar e in the results section. CBC WITH DIFFERENTIAL, Routine 02/28/2013 10:20 R esults for this B AM SHELL FREEZING MACHINE OPERATOR procedure are i n the results section. COMPREHENSIVE Routine 02/28/2013 10:20 Results fo r this METABOLIC PANEL, S/P AM SHELL FREEZING MACHINE OPERATOR procedu re are in the results section. DIPSTICK, U Routine 02/28/2013 9:17 AM Results f or this SHELL FREEZING MACHINE OPERATOR procedure are i n the results section. documented in this encounter Results Automated Differential (02/28/2013 10:20 AM SHELL FREEZING MACHINE OPERATOR) P athologist Signature Absolute 3.62 1.70 - POWERCHART Neutrophils 7.00 109L Lymphocytes 2.24 0.90 - POWERCHART 2.90 X109L Monocytes 0.66 0.30 - POWERCHART 0.90 X109L Eosinophils <0.50 0.05 - POWERCHART 0.50 X109L Absolute <0.50 0.00 - POWERCHART Basophil 0.30 X109L Specimen Anatomical Collection Method Collection Time Receive d Time (Source) Location / / Volume Laterality Blood 02/28/2013 10:20 02/28/2013 AM SHELL FREEZING MACHINE OPERATOR 10:20 AM SHELL FREEZING MACHINE OPERATOR Yolanda Colón APRN, C.N.P. LAB BLOOD ADD-ON Performing Organization Address City/State/ZIP Code Phon e Number POWERCHART CBC with Differential (02/28/2013 10:20 AM SHELL FREEZING MACHINE OPERATOR) athologist Signature Leukocytes 6.6 3.5 - 10.5 POWERCHART X109L Erythrocytes 5.08 4.32 - POWERCHART 5.72 [id number] Hemoglobin 14.9 13.5 - POWERCHART 17.5 GDL Hematocrit 44.2 38.8 - POWERCHART 50.0 MCV 87.0 81.2 - POWERCHART 95.1 FL HX RDW 12.7 11.8 - POWERCHART 15.6 Platelet Count 251 150 - 450 POWERCHART X109L HXDifferential? Auto POWERCHART Specimen (Source) Anatomical Collection Method Collection Time Re ceived Time Location / / Volume Laterality Blood 02/28/2013 10:20 AM SHELL FREEZING MACHINE OPERATOR Yolanda Colón APRN, C.N.P. LAB BLOOD ADD-ON Performing Organization Address City/State/ZIP Code Phon e Number POWERCHART PSA (Prostate-Specific Antigen) Screen (02/28/2013 10:20 AM SHELL FREEZING MACHINE OPERATOR) athologist Signature Prostate-Specif 1.2 <=4.5 NGML POWERCHART ic Ag Specimen (Source) Anatomical Collection Method Collection Time Re ceived Time Location / / Volume Laterality Blood 02/28/2013 10:20 AM SHELL FREEZING MACHINE OPERATOR Yolanda Colón APRN, C.N.P. LAB BLOOD ADD-ON Performing Organization Address City/State/ZIP Code Phon e Number POWERCHART (ABNORMAL) Lipid Panel (02/28/2013 10:20 AM SHELL FREEZING MACHINE OPERATOR) [facility] [employer] Method Time Signature Cholesterol, Total 219 (H) 120 - 200 POWERCHART MGDL HX HDL 35 (L) >=40 MGDL POWERCHART Triglycerides 229 (H) <=149 POWERCHART MGDL Comment: The National Cholesterol Education Progr am [...] > or = 130 mg/dL Calculated LDL 138 (H) 60 - 130 MGDL POWERCHART Total Cholesterol/HDL Ratio 6.3 (H) 0.0 - 4.5 PO WERCHART HXLDL/HDL 4 POWERCHART Specimen (Source) Anatomical Collection Method Collection Time Re ceived Time Location / / Volume Laterality Blood 02/28/2013 10:20 AM SHELL FREEZING MACHINE OPERATOR Yolanda Colón APRN, C.N.P. LAB BLOOD ADD-ON Performing Organization Address City/State/ZIP Code Phon e Number POWERCHART CMP (Comprehensive Metabolic Panel) (02/28/2013 10:20 AM SHELL FREEZING MACHINE OPERATOR) [facility] VaporWire Method Time Signature Alanine 32 6 - 50 UL POWERCHART Amniotransferase, LD Albumin, S 4.5 3.0 - 5.0 POWERCHART GDL Alkaline 68 34 - 114 POWERCHART Phosphatase, S UL Aspartate 26 3 - 35 UL POWERCHART Aminotransferase (AST), S Sodium, S 138 135 - 145 POWERCHART MMOLL Potassium, S 4.0 3.5 - 5.0 POWERCHART MMOLL Chloride, S 100 95 - 106 POWERCHART MMOLL CO2 Total 26 21 - 32 POWERCHART MMOLL BUN (Blood Urea 16 5 - 24 POWERCHART Nitrogen), S MGDL Creatinine 1.0 0.8 - 1.3 POWERCHART MGDL Calcium, Total, S 9.9 8.9 - POWERCHART 10.1 MGDL Anion Gap 12 7 - 15 POWERCHART MMOLL HXeGFR (MDRD) >60.0 >=60.0 POWERCHART eGFR Black/ >60.0 >=60.0 POWERCHART Samoan Bilirubin, Total, S 0.6 0.1 - 1.2 POWERCHART MGDL Total Protein, S 7.1 6.2 - 7.5 POWERCHART GDL Glucose 135 70 - 139 POWERCHART MGDL Specimen (Source) Anatomical Collection Method Collection Time Re ceived Time Location / / Volume Laterality Blood 02/28/2013 10:20 AM SHELL FREEZING MACHINE OPERATOR Yolanda Colón APRN, C.N.P. LAB BLOOD ADD-ON Performing Organization Address City/State/[facility] [[email or web address]] Code Phon e Number POWERCHART Dipstick, Urine (02/28/2013 9:17 AM SHELL FREEZING MACHINE OPERATOR) [facility] gist Method Time Signature Source Clean Void POWERCHART Urine HXUr Color Yellow Yellow POWERCHART Appearance Clear Clear POWERCHART Glucose Negative Negative POWERCHART HXBILIRUBIN Negative Negative POWERCHART Ketones, QL(U) Negative Negative POWERCHART Specific 1.020 1.000 - POWERCHART [place], POCT, U 1.030 HXBLOOD Negative Negative POWERCHART pH, POCT, Urine 7.0 5.0 - 9.0 POWERCHART Protein, Ur, Dip Negative Negative POWERCHART Urobilinogen 0.2 0.1 - 2.0 POWERCHART HXNITRITE Negative Negative POWERCHART Leukocyte Negative Negative POWERCHART Esterase Specimen (Source) Anatomical Collection Method Collection Time Re ceived Time Location / / Volume Laterality Urine 02/28/2013 9:17 AM SHELL FREEZING MACHINE OPERATOR Yolanda Colón APRN, C.N.P. LAB URINE ORDERABLES Performing Organization Address City/[facility] Phon e Number POWERCHART documented in this encounter Visit Diagnoses Not on filedocumented in this encounter
--- OUTSIDE RECORDS SUMMARY | 2021-12-28 10:02 | XMS_ITS | Encounter Summary ---
:1945 Author Organization [facility] Address [address] [place] [address] Care Team Providers Name Role Phone Unavailable Primary Care Provider Unavailable Encounter Details Date Type Department Care Team Description 06/12/2015 Hospital Encounter HX [facility] JENNIFER Yolanda Jett , AMBER, C.N.P. [address] [place], [place] [phone] (Wo rk) Social History Tobacco Use Types [...] or relatives? How often do you attend episcopalian or 1 to 4 times per year 11/2019 restorationist services? 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 - 06/15/2015 9:55 AM CDT Normal Results Letter June 15, 2015 FRANSICO MACDONALD [id number] [place] [id number] Dear FRANSICO MACDONALD, I am pleased to report that your results from your recent cholesterol are much improved. Keep up thegood work! If you have questions or concerns, please do not hesitate to call our office. Result Name Current Result Normal Range Cholesterol (mg/dL) 193 06/12/2015 - <=199 HDL (mg/dL) 42 06/12/2015 >=40 - Trig (mg/dL) 165 06/12/2015 - <=149 LDL Calculated (mg/dL) 118 06/12/2015 - <=129 Sincerely, DARBY SHANNON Electronic Signature Electronically Signed By: DARBY SHANNON LPN On: June 15, 2015 This document has images extracted. Source: [facility] POWERCHART Document Id: [id number] Miscellaneous - Yolanda Colón APRN, C.N.P. - 06/12/2015 1:10 PM CDT Results Notification Document Contains Addenda Addendum by JENNIFER STEWARD LPN on June 15, 2015 15:28 CDT Pt called for results and given message. Addendum by DARBY SHANNON LPN on June 15, 2015 09:55:23 CDT letter sent Addendum by JOURDAN PATEL CMA on June 12, 2015 13:50:32 CDT [facility] From: YOLANDA COLÓN CLAIMS CONFIGURATION ANALYST To: DARBY SHANNON LPN; Sent: 06/12/2015 13:10:01 CDT Show up: 06/12/2015 13:10:00 CDT Subject: Results Notification Please notify cholesterol is much improved. Keep up the great work! Results: Date Result Name Ind Value Ref Range 06/12/2015 09:10 Cholesterol 193 mg/dL ( - <=199) 06/12/2015 09:10 Trig (H) 165 mg/dL ( - <=149) 06/12/2015 09:10 HDL 42 mg/dL (>=40 - ) 06/12/2015 09:10 LDL Calculated 118 mg/dL ( - <=129) Source: [facility] POWERCHART Document Id: [id number] documented in this encounter Plan of Treatment Upcoming Encounters Date Type Specialty Care Team Description 02/11/2022 Appointment Laboratory Medicine Neli Hearn M.D. [address] [place] [phone] (Wo rk) 02/14/2022 Office Visit Family Medicine Lilli Hearn M.D. [address] [place] [phone] (Wo rk) documented as of this encounter Procedures Procedure Name Priority Date/Time Associated Diagnosis Comme nts LIPID PANEL, S Routine 06/12/2015 9:10 AM Results for this CDT procedure are i n the results section . documented in this encounter Results (ABNORMAL) Lipid Panel (06/12/2015 9:10 AM CDT) P athologist Signature Cholesterol, 193 <=199 MGDL POWERCHART Total Comment: 2014 National Lipid Association recommen dations for Total Cholesterol in adults ages 18 and up: Desirable <200 mg/dL Borderline high 200-239 mg/dL High 240 mg/dL 2014 National Lipid Association recommen dations for Total Cholesterol in children ages 2 to 17. Acceptable <170 mg/dL Borderline High 170-199 mg/dL High 200 mg/dL HX HDL 42 >=40 MGDL POWERCHART Comment: 2014 National Lipid Association recommen dations for HDL-C in adults ages 18 and up: Low <40 mg/dL (Men) Low <50 mg/dL (Women) 2014 National Lipid Association recommen dations for HDL-C in children ages 2 to 17. Low <40 mg/dL Borderline Low 40-45 mg/dL Acceptable >45 mg/dL Triglycerides 165 (H) <=149 MGDL POWERCHART Comment: 2014 National [...] Calculated LDL 118 <=129 MGDL POWERCHART Comment: 2014 National Lipid Association [...] for FH and FDB is available throu [facility]: FH/ADH Genetic Reflex Rivera el (test ADHP). Acquired (non-genetic) causes of markedly increased LDL cholesterol include cholestatic liver disease due to the presence of LpX. If a genetic form of hypercholesterolemia is suspected, family studies including biochemical testing fo r lipids (total cholesterol,triglycerides, LDL cholesterol and HDL cholesterol) are recommended. ??Please contact the laboratory at or the on-line test catalog at [employer] for information about how to order these endy ts or to speak with a genetic counselor. Further interpretation would require clinical information. Specimen (Source) Anatomical Collection Method Collection Time Re ceived Time Location / / Volume Laterality Blood 06/12/2015 9:10 AM CDT Yolanda Colón APRN, C.N.P. LAB BLOOD ADD-ON Performing Organization Address City/State/ZIP Code Phon e Number POWERCHART documented in this encounter Visit Diagnoses Not on filedocumented in this encounter
--- OUTSIDE RECORDS SUMMARY | 2021-12-28 10:02 | XMS_ITS | Encounter Summary ---
:1945 Author Organization [facility] Address [address] [place] [address] Care Team Providers Name Role Phone Unavailable Primary Care Provider Unavailable Encounter Details Date Type Department Care Team Description 05/27/2014 Hospital Encounter HX [facility] JENNIFERWendy Riojas, INFORMATION SYSTEMS PLANNER, C.N.P. [address] [place] [phone] (Wo rk) Social History Tobacco Use Types [...] 1 to 4 times per year 11/2019 christian services? 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 documented as of this encounter Last Filed Vital Signs Vital Sign Reading Time Taken Comments Blood Pressure 133/74 05/27/2014 11:09 AM NETWORK ENGINEER ADMINISTRATOR Pulse 70 05/27/2014 11:09 AM NETWORK ENGINEER ADMINISTRATOR Temperature - - Respiratory Rate 16 05/27/2014 11:09 AM NETWORK ENGINEER ADMINISTRATOR Oxygen Saturation - - Inhaled Oxygen Concentration - - Weight 130 kg (286 lb 9.6 oz) 05/27/2014 11:09 AM NETWORK ENGINEER ADMINISTRATOR Height 172 cm (5' 7.72) 05/27/2014 11:09 AM NETWORK ENGINEER ADMINISTRATOR Body Mass Index 43.94 05/27/2014 11:09 AM NETWORK ENGINEER ADMINISTRATOR documented in this encounter Medications at Time [...] Progress Notes Yolanda Colón APRN, C.N.P. - 05/27/2014 10:52 AM CST [id number] CHIEF COMPLAINT/REASON FOR VISIT Medhat comes in today with a wart on the bottom of his right foot is causing him some discomfort. HISTORY OF PRESENT ILLNESS He has noticed it for the past month and he is complaining of increasing discomfort over that area. No other concerns or complaints today. PAST MEDICAL/SURGICAL HISTORY Hyperlipidemia. Hypertension. Obesity. Depression. MEDICATIONS Aspirin 81 mg. Bupropion 150 SR 1 tablet twice a day. Fluticasone hydrochlorothiazide 25 mg daily high blood pressure. Hytrin 1 mg daily, enlarged prostate. Losartan 100, hypertension. Naprosyn 500 as needed for arthritic pain. Omeprazole 20 reflux. Osteo Bi-Flex. Pravastatin 80, hyperlipidemia. Sildenafil, erectile dysfunction. ALLERGIES TYLENOL. SYSTEMS REVIEW A 10 point review of systems completed and all negative except for complaints as above. VITAL SIGNS Temperature 36.8, heart rate 70, respiratory 16, blood pressure 133/74, O2 sat 95%. Height 172, weight 130, BMI 43.94. PHYSICAL EXAMINATION GENERAL: A pleasant 68-year-old male, no apparent distress. He has a large callused area on the bottom of the right foot near the base of the fifth toe. Consent form completed for procedure. A #15 blade was used to pare off the callus skin. Liquid nitrogen used in a typical/freeze thaw pattern x4 passes. The patient tolerated this procedure well. IMPRESSION/REPORT/PLAN Plantar wart right foot. PLAN: Return in 1 week for re-treatment. Care of the lesion was discussed. Symptomatic treatment also discussed. Follow up appointment made for him to have a repeat treatment in 1 week. Other comorbid conditions not addressed today hyperlipidemia, hypertension, obesity. Linda BentleyN.P./pos Electronically Signed By: YOLANDA COLÓN BARREL ASSEMBLER HELPER On: 05/28/2014 08:01 AM Source: [facility] MHSDOLBEYNONRADSYS Document Id: [id number] ORK ENGINEER ADMINISTRATOR documented in this encounter Miscellaneous Notes Miscellaneous - Yolanda Colón APRN C.N.P. - 05/27/2014 11:45 AM NETWORK ENGINEER ADMINISTRATOR Ambulatory Patient Summary [address] [id number] Visit Information Name: FRANSICO MACDONALD [facility] Number: [id number] Current Date: 05/27/2014 11:45:49 Physicians Attending Provider: YOLANDA COLÓN NP Primary [...] nasal (fluticasone 50 mcg/inh nasal spray) 1 Morral(s), Nasal, once a day glucosamine-chondroitin (Osteo Bi-Flex) [...] the Following Medications: Medication list as of 05-27-14 11:45 Attention: If you have any medications at [...] of emergency. Electronically Signed By: YOLANDA COLÓN BARREL ASSEMBLER HELPER Signed On:27-MAY-2014 11:45:32 Your Allergies & Intolerances Substance Reaction Symptoms Category Comments Tylenol Drug Your Problem List Problem Status Onset Comments Hypertension Essential (401.9) Active Hypercholesterolemia Active Obesity NOS Active Your Upcoming Appointments Date Time Location Provider 06/03/2014 09:45 Yolanda Nunes NP 07/16/2014 09:15 Yolanda Nunes NP Attention: Contact your local Clinic if further appointment detail needed. Your Goals/Additional instructions: Source: [facility] POWERCHART Document Id: [id number] ORK ENGINEER ADMINISTRATOR Miscellaneous - Yolanda Colón APRN, C.N.P. - 05/27/2014 11:45 AM NETWORK ENGINEER ADMINISTRATOR Ambulatory Discharge Medication List [address] [id number] Visit Information Name: FRANSICO MACDONALD [facility] Number: [id number] Visit Date: 05/27/2014 11:45:48 Attending Provider: YOLANDA COLÓN NP Primary Care [...] nasal (fluticasone 50 mcg/inh nasal spray) 1 Morral(s), Nasal, once a day glucosamine-chondroitin (Osteo Bi-Flex) [...] the Following Medications: Medication list as of 05-27-14 11:45 Attention: If you have any medications at [...] of emergency. Electronically Signed By: YOLANDA COLÓN BARREL ASSEMBLER HELPER Signed On:27-MAY-2014 11:45:32 Additional Information: Source: [facility] POWERCHART Document Id: [id number] ORK ENGINEER ADMINISTRATOR Miscellaneous - Nelly Diaz L.P.N. - 05/27/2014 11:09 AM NETWORK ENGINEER ADMINISTRATOR Adult Veneer Jointer Operator Intake/History Adult Veneer Jointer Operator Intake/History Entered On: 05/27/2014 11:14 NETWORK ENGINEER ADMINISTRATOR Performed On: 05/27/2014 11:09 NETWORK ENGINEER ADMINISTRATOR by NELLY DIAZ LPN Intake Chief Complaint : plantar wart Onset of Symptoms : 3 months Temperature Core : 36.8 DegC(Converted to: 98.2 DegF) Peripheral Pulse Rate : 70 /min Respiratory Rate : 16 /min Systolic Blood Pressure : 133 mmHg Diastolic Blood Pressure : 74 mmHg NIBP Mean : 94 mmHg BP Location : Left upper extremity Blood Pressure Cuff Size : Large SpO2 : 95 % Oxygen Therapy : Room air Height : 172 cm(Converted to: 5 ft 8 inch(es), 68 inch(es)) Actual Weight : 130 kg(Converted to: 286 lb 10 oz) Weight Source : Standing scale Dosing Weight Clinic : 130 kg Clinic BSA : 2.49 Body Mass Index : 43.94 kg/m2 NELLY DIAZ LPN - 05/27/2014 11:09 NETWORK ENGINEER ADMINISTRATOR General Info Information Given By : Patient Preferred Communication Mode : Verbal Languages : Bengali Is Patient Female and 13-50 no hysterectomy : No NELLY DIAZ LPN - 05/27/2014 11:09 NETWORK ENGINEER ADMINISTRATOR Subjective Pain Symptoms : No NELLY DIAZ LPN - 05/27/2014 11:09 NETWORK ENGINEER ADMINISTRATOR Dependent Habits Tobacco Use/Currently Using : No Smoking Status : Former smoker NELLY DIAZ LPN - 05/27/2014 11:09 NETWORK ENGINEER ADMINISTRATOR Tobacco Use Grid Last Use : 40 YEARS AGO EMILY NELLY JAMES SILO ERECTOR - 05/27/2014 11:09 NETWORK ENGINEER ADMINISTRATOR ID Screen Drug Resistant Organism : No Travel Within Last 21 Days : No Contact with someone with Ebola : No NELLY DIAZ LPN - 05/27/2014 11:09 NETWORK ENGINEER ADMINISTRATOR Source: [facility] POWERCHART Document Id: [id number] NETWORK ENGINEER ADMINISTRATOR!37 ORK ENGINEER ADMINISTRATOR documented in this encounter Plan of Treatment Upcoming Encounters Date Type Specialty Care Team Description 02/11/2022 Appointment Laboratory Medicine Neli Hearn M.D. [address] [place] [phone] (Wo rk) 02/14/2022 Office Visit Family Medicine Lilli Hearn M.D. [address] [place] [phone] (Wo rk) documented as of this encounter Visit Diagnoses Not on filedocumented in this encounter
--- OUTSIDE RECORDS SUMMARY | 2021-12-28 10:02 | XMS_ITS | Encounter Summary ---
:1945 Author Organization [facility] Address [address] [place] [address] Care Team Providers Name Role Phone Unavailable Primary Care Provider Unavailable Encounter Details Date Type Department Care Team Description 06/10/[address] [facility] JENNIFERWendy Riojas, LEASE EXAMINER, C.N.P. [address] [place] [phone] (Wo rk) Social History Tobacco Use Types [...] 1 to 4 times per year 11/2019 orthodox services? 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 - 06/10/2014 9:05 AM CDT [id number] CHIEF COMPLAINT/REASON FOR VISIT Medhat comes in today to recheck the plantar wart on his right foot. HISTORY OF PRESENT ILLNESS He has had it frozen off twice. Please see the previous 2 dictations for wart treatment. He denies any pain or concerns or complaints today. PAST MEDICAL/SURGICAL HISTORY Hyperlipidemia. Hypertension. Obesity. MEDICATIONS Aspirin 81 mg. Bupropion. Fluticasone. Hydrochlorothiazide. Hytrin. Losartan. Naprosyn. Omeprazole. Osteo Bi-Flex. Pravastatin. Sildenafil 25 mg. SYSTEMS REVIEW A 10-point review of systems negative. VITAL SIGNS Temperature 37.2, heart rate 72, respiratory 16, blood pressure 140/78, height 172, weight 132.2. PHYSICAL EXAMINATION GENERAL: Pleasant 68-year-old male, no apparent distress. Right foot along the 5th metatarsal head, is noted to have a plantar wart callused today. A #15 blade was used to pare the lesion with patient's consent and he tolerated this procedure well. Plantar wart is no longer active after callused skin removed. IMPRESSION/REPORT/PLAN Plantar wart, right foot, improved. PLAN: No retreatment as needed at this point. Symptomatic care only. I advised to follow up as needed. Yolanda Colón, C.N.P./pos Electronically Signed By: YOLANDA COLÓN IDENTIFICATION AND RECORDS COMMANDER On: 06/11/2014 07:54 AM Source: [facility] MHSDOLBEYNONRADSYS Document Id: [id number] documented in this encounter Miscellaneous Notes Miscellaneous - Yolanda Colón APRN, C.N.P. - 06/10/2014 9:34 AM CDT Ambulatory Patient Summary [address] [id number] Visit Information Name: FRANSICO MACDONALD [facility] Number: [id number] Current Date: 06/10/2014 09:34:53 Physicians Attending Provider: YOLANDA COLÓN NP Primary [...] nasal (fluticasone 50 mcg/inh nasal spray) 1 Sylvia(s), Nasal, once a day glucosamine-chondroitin (Osteo Bi-Flex) [...] the Following Medications: Medication list as of 06-10-14 09:34 Attention: If you have any medications at [...] of emergency. Electronically Signed By: YOLANDA COLÓN IDENTIFICATION AND RECORDS COMMANDER Signed On:10-JUN-2014 09:34:42 Your Allergies & Intolerances Substance Reaction Symptoms Category Comments Tylenol Drug Your Problem List Problem Status Onset Comments Hypertension Essential (401.9) Active Hypercholesterolemia Active Obesity NOS Active Your Upcoming Appointments Date Time Location Provider 07/16/2014 09:15 [facility] Yolanda Colón NP Attention: Contact your local Clinic if further appointment detail needed. Your Goals/Additional instructions: Source: [facility] POWERCHART Document Id: [id number] Miscellaneous - Yolanda Colón APRN, C.N.P. - 06/10/2014 9:34 AM CDT Ambulatory Discharge Medication List [address] [id number] Visit Information Name: FRANSICO MACDONALD [facility] Number: [id number] Visit Date: 06/10/2014 09:34:52 Attending Provider: YOLANDA COLÓN NP Primary Care Provider: YOLANDA COLÓN IDENTIFICATION AND RECORDS COMMANDER MERY FRANSICO HINOJOSA has been given the following [...] nasal (fluticasone 50 mcg/inh nasal spray) 1 Sylvia(s), Nasal, once a day glucosamine-chondroitin (Osteo Bi-Flex) [...] the Following Medications: Medication list as of 06-10-14 09:34 Attention: If you have any medications at [...] of emergency. Electronically Signed By: YOLANDA COLÓN IDENTIFICATION AND RECORDS COMMANDER Signed On:10-JUN-2014 09:34:42 Additional Information: Source: [facility] POWERCHART Document Id: [id number] Candido - Aleja Waters L.PFamiliaNFamilia - 06/10/2014 9:10 AM CDT Health Assessment Health Assessment Entered On: 06/10/2014 9:10 CDT Performed On: 06/10/2014 9:10 CDT by ALEJA WATERS LPN Health Assessment Complete Health Assessment Complete or Modified : Annual Health Assessment Annual Health Assessment Completed : Yes ALEJA WATERS LPN - 06/10/2014 9:10 CDT Nutrition Nutrition Risk Factors by History Adult : None ALEJA WATERS LPN - 06/10/2014 9:10 CDT Functional Current Daily Living Assistance : None ALEJA WATERS LPN - 06/10/2014 9:10 CDT Dependent Habits Tobacco Use/Currently Using : No Smoking Status : Former smoker ALEJA WATERS LPN - 06/10/2014 9:10 CDT Tobacco Use Grid Last Use : 40 YEARS AGO ALEJA WATERS LPN - 06/10/2014 9:10 CDT Psychosocial Domestic Abuse Concerns : None Denominational Preference : No qualifying data available. ALEJA WATERS LPN - 06/10/2014 9:10 CDT Advance Directive Advanced Directives : No Advance Directive Additional Information : Yes ALEJA WATERS LPN - 06/10/2014 9:10 CDT Educ Needs Learning Style Preference Adult Grid Patient : Demonstration, Printed materials Family : Printed materials ALEJA WATERS LPN - 06/10/2014 9:10 CDT Source: [facility] [employer]CHART Document Id: [id number] CDT!24 Candido - Aleja Waters L.P.NFamilia - 06/10/2014 9:10 AM CDT Adult Gauger Chief Delivery Intake/History Adult Gauger Chief Delivery Intake/History Entered On: 06/10/2014 9:12 CDT Performed On: 06/10/2014 9:10 CDT by ALEJA WATERS LPN Intake Chief Complaint : F/U Rt foot wart Temperature Core : 37.2 DegC(Converted to: 99.0 DegF) Peripheral Pulse Rate : 72 /min Respiratory Rate : 16 /min Systolic Blood Pressure : 140 mmHg Diastolic Blood Pressure : 78 mmHg NIBP Mean : 99 mmHg Height : 172 cm(Converted to: 5 ft 8 inch(es), 68 inch(es)) Actual Weight : 132.2 kg(Converted to: 291 lb 7 oz) Dosing Weight Clinic : 132.2 kg Clinic BSA : 2.51 Body Mass Index : 44.69 kg/m2 ALEJA WATERS LPN - 06/10/2014 9:10 CDT General Info Languages : Lithuanian Is Patient Female and 13-50 no hysterectomy : No ALEJA WATERS LPN - 06/10/2014 9:10 CDT Subjective Pain Symptoms : No ALEJA WATERS LPN - 06/10/2014 9:10 CDT Dependent Habits Tobacco Use/Currently Using : No Smoking Status : Former smoker ALEJA WATERS LPN - 06/10/2014 9:10 CDT Tobacco Use Grid Last Use : 40 YEARS AGO ALEJA WATERS LPN - 06/10/2014 9:10 CDT ID Screen Drug Resistant Organism : No Travel Within Last 21 Days : No Contact with someone with Ebola : No ALEJA WATERS LPN - 06/10/2014 9:10 CDT Source: [facility] POWERCHART Document Id: [id number] CDT!29 documented in this encounter Plan of Treatment Upcoming Encounters Date Type Specialty Care Team Description 02/11/2022 Appointment Laboratory Medicine Neli Hearn M.D. [address] [place] [phone] (Wo rk) 02/14/2022 Office Visit Family Medicine Lilli Hearn M.D. [address] [place] [phone] (Wo rk) documented as of this encounter Visit Diagnoses Not on filedocumented in this encounter
--- OUTSIDE RECORDS SUMMARY | 2021-12-28 10:03 | XMS_ITS | Encounter Summary ---
:1945 Author Organization [facility] Address [address] [place] [address] Care Team Providers Name Role Phone Unavailable Primary Care Provider Unavailable Encounter Details Date Type Department Care Team Description 07/15/2010 Hospital Encounter HX [facility] Anthony Galvin Jr., M.D. 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 0 aspirin 81 mg capsule Take 1 tablet by 0 07/16/19 11 01/09/2018 mouth daily. documented as of this encounter Progress Notes Fadi Todd - 07/15/2010 10:04 AM CDT [facility] Exam [facility] Exam Entered On: 07/15/2010 10:07 CDT Performed On: 07/15/2010 10:04 CDT by FADI TODD Chief Complaint and History Reason for Visit: Other: OCT- Dr Pederson ref. pt sill not be seeing Dr Sarkar today. FADI TODD - 07/15/2010 10:04 CDT Vision Testing Right Eye Vision Testing: With glasses - primary, 20/20 Left Eye Vision Testing: With glasses - primary, 20/20 FADI TODD - 07/15/2010 10:04 CDT [facility] Document Id: [id number] CDT!6 documented in this encounter Plan of Treatment Upcoming Encounters Date Type Specialty Care Team Description 02/11/2022 Appointment Laboratory Medicine Neli Hearn M.D. [address] [place] [phone] (Stephon caldera) 02/14/2022 Office Visit Family Medicine Lilli Hearn M.D. [address] [place] [phone] (Stephon caldera) documented as of this encounter Visit Diagnoses Not on filedocumented in this encounter
--- OUTSIDE RECORDS SUMMARY | 2021-12-28 10:03 | XMS_ITS | Encounter Summary ---
:1945 Author Organization [facility] Address [address] [place] [address] Care Team Providers Name Role Phone Unavailable Primary Care Provider Unavailable Encounter Details Date Type Department Care Team Description 08/05/2012 Hospital Encounter HX [facility] Gianfranco Cameron M.D. Social History Tobacco Use Types Packs/Day [...] 1 to 4 times per year 11/2019 shinto services? 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 - 08/05/2012 10:11 AM CDT [id number] HISTORY OF PRESENT ILLNESS The patient is a 66-year-old gentleman who presents to clinic stating that he has had a head and chest cold for about 3 weeks. More recently over the last 3 or 4 days he has noted increasing pain and pressure over the right maxillary sinus and now today over the left maxillary sinus. He has had a subjective temperature in the last several days as well. He has taken Mucinex for relief of symptoms. He states that he has had several sinus infections in the past. He is otherwise offering no other complaints at the present time. PAST MEDICAL/SURGICAL HISTORY 1. Hypertension. 2. Hyperlipidemia. 3. GERD. SOCIAL HISTORY He is a former tobacco used but no for the last 10 or 12 years. ALLERGIES Tylenol. VITAL SIGNS Reveal temperature of 37.1. Oxygen saturation 91%. PHYSICAL EXAMINATION HEENT: Reveals discomfort over the right maxillary sinus. NECK: Supple. CHEST: Clear. IMPRESSION/REPORT/PLAN Sinusitis. PLAN: Augmentin 875 mg one 2 times a day x10 days. Symptomatic care is discussed. The patient will follow up if his local physician if not clearly improved in 5 to 6 days. He will call or return soonershoulder questions or problems arise. Florencio Samuels M.D./[facility] Electronically Signed By: FLORENCIO SAMUELS MD On: 08/09/2012 02:36 PM Source: [facility] MHSDOLBEYNON[employer] Document Id: [id number] documented in this encounter Miscellaneous Notes Miscellaneous - Florencio Samuels M.D. - 08/05/2012 10:38 AM CDT Ambulatory Patient Summary [facility] - [address] [address] Visit Information Name: FRANSICO MACDONALD [facility] Number: [id number] Current Date: 08/05/2012 10:38:49 Physicians Attending Provider: FLORENCIO SAMUELS MD Primary Care Provider: LILLI JARRELL MD Your Medications Here is a list of your medications. It is important to take your medications as directed. Use a pillbox or chart to help remind you to take your medications. Please let your doctor or nurse know if you have problems taking your medications. Medication/Strength Dose Route Frequency Indications/Special Instructions/Comments amoxicillin-clavulanate (amoxicillin-clavulanate 875 mg-125 mg oral tablet) 1 tab(s) Oral two times a day for 10 Days terazosin (terazosin 1 mg oral capsule) 1 mg Oral once a day (at bedtime) fluticasone nasal (fluticasone 50 mcg/inh nasal spray) 1 spray(s) Nasal once a day pravastatin (pravastatin 40 mg oral tablet) 1.5 tablets Oral once a day (at bedtime) 60 mg everyday terazosin (Hytrin 1 mg oral capsule) 1 mg Oral once a day (at bedtime) *glucosamine/chondroitin/methylsulfonylmethane (Osteo Bi-Flex Advanced oral tablet) losartan (losartan 100 mg oral tablet) 100 mg Oral once a day hydrochlorothiazide (hydrochlorothiazide 25 mg oral tablet) 25 mg Oral once a day buPROPion (buPROPion XL 150 mg/24 hours oral extended release tablet) 150 mg Oral two times a day pravastatin (pravastatin 40 mg oral tablet) 40 mg Oral once a day (at bedtime) multivitamin with minerals (Centrum Silver) 1 once a day aspirin (aspirin 81 mg oral tablet) 1 tab(s) Oral once a day omeprazole (omeprazole) 20 mg once a day naproxen (Naprosyn 500 mg oral tablet) 500 mg Oral once a day as needed for pain * You have let us know that you are not taking this medication as listed. Please talk with your primary care provider or the health care provider who prescribed the medication as soon as possible. Attention: If you have any medications at home that are not on this list, DO NOT take them until youcontact your provider for clarification. Your Allergies & Intolerances Substance Reaction Symptoms Category Comments Tylenol Drug Your Problem List Problem Status Onset Comments Hypertension Essential (401.9) Active Hypercholesterolemia Active Obesity NOS Active Your Upcoming Appointments Date Time Location Reason Provider No Appointments found Your Goals/Additional instructions: Source: [facility] [employer] Document Id: [id number] Miscellaneous - Florencio Samuels M.D. - 08/05/2012 10:38 AM CDT Ambulatory Depart Summary [facility] [address] [address] Visit Information Name: FRANSICO MACDONALD [facility] Number: [id number] Visit Date: 08/05/2012 10:38:48 Attending Provider: FLORENCIO SAMUELS MD Primary Care Provider: LILLI JARRELL MD LIZETLOFRANSICO MICAELA has been given the following list of medications: Your Medications It is important to take your medications as directed. Use a pill box or chart to help remind you to take your medications. Please let your doctor or nurse know if you have problems taking your medications. Medication/Strength Dose Route Frequency Indications/Special Instructions/Comments amoxicillin-clavulanate (amoxicillin-clavulanate 875 mg-125 mg oral tablet) 1 tab(s) Oral two times a day for 10 Days terazosin (terazosin 1 mg oral capsule) 1 mg Oral once a day (at bedtime) fluticasone nasal (fluticasone 50 mcg/inh nasal spray) 1 spray(s) Nasal once a day pravastatin (pravastatin 40 mg oral tablet) 1.5 tablets Oral once a day (at bedtime) 60 mg everyday terazosin (Hytrin 1 mg oral capsule) 1 mg Oral once a day (at bedtime) *glucosamine/chondroitin/methylsulfonylmethane (Osteo Bi-Flex Advanced oral tablet) losartan (losartan 100 mg oral tablet) 100 mg Oral once a day hydrochlorothiazide (hydrochlorothiazide 25 mg oral tablet) 25 mg Oral once a day buPROPion (buPROPion XL 150 mg/24 hours oral extended release tablet) 150 mg Oral two times a day pravastatin (pravastatin 40 mg oral tablet) 40 mg Oral once a day (at bedtime) multivitamin with minerals (Centrum Silver) 1 once a day aspirin (aspirin 81 mg oral tablet) 1 tab(s) Oral once a day omeprazole (omeprazole) 20 mg once a day naproxen (Naprosyn 500 mg oral tablet) 500 mg Oral once a day as needed for pain * You have let us know that you are not taking this medication as listed. Please talk with your primary care provider or the health care provider who prescribed the medication as soon as possible. Attention: If you have any medications at home that are not on this list, DO NOT take them until youcontact your provider for clarification. 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 Entered On: 08/05/2012 10:24 CDT Performed On: 08/05/2012 10:23 CDT by CAMACHO HIGHTOWER Intake Chief Complaint : pt c/o sinus pain and pressure below eyes, green mucus x 3 weeks, pain in jaw x 3 days Temperature Core : 37.1 DegC(Converted to: 98.8 DegF) Peripheral Pulse Rate : 80 /min SpO2 : 91 % (LOW) CAMACHO HIGHTOWER - 08/05/2012 10:23 CDT General Info Languages : Latvian CAMACHO HIGHTOWER - 08/05/2012 10:23 CDT Subjective Pain Symptoms : Yes CAMACHO HIGHTOWER - 08/05/2012 10:23 CDT Pain Pain Assessment Grid Pain 1 Location : Other: sinus CAMACHO HIGHTOWER - 08/05/2012 10:23 CDT Dependent Habits Tobacco Use/Currently Using : No Smoking Status : Former smoker CAMACHO HIGHTOWER - 08/05/2012 10:23 CDT Source: [facility] [employer] Document Id: [id number] CDT!17 documented in this encounter Plan of Treatment Upcoming Encounters Date Type Specialty Care Team Description 02/11/2022 Appointment Laboratory Medicine Neli Jarrell M.D. [address] [place] [phone] (Wo rk) 02/14/2022 Office Visit Family Medicine Lilli Jarrell M.D. [address] [place] [phone] (Wo rk) documented as of this encounter Visit Diagnoses Not on filedocumented in this encounter
--- OUTSIDE RECORDS SUMMARY | 2021-12-28 10:03 | XMS_ITS | Encounter Summary ---
:1945 Author Organization [facility] Address [address] [place] [address] Care Team Providers Name Role Phone Unavailable Primary Care Provider Unavailable Encounter Details Date Type Department Care Team Description 07/22/2010 Hospital Encounter HX [facility] Anthony Galvin Jr., M.D. 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 0 aspirin 81 mg capsule Take 1 tablet by 0 07/16/19 11 01/09/2018 mouth daily. documented as of this encounter Progress Notes Conversion, Historical Provider Ser - 07/22/2010 1:12 PM CDT Eye Services [facility] Exam [facility] Services Clinic Exam Entered On: 07/22/2010 13:12 CDT Performed On: 07/22/2010 13:12 CDT by RATNA MADRID Chief Complaint and History Reason for Visit: Other: GDX - TECH ONLY VISIT N/C Pain Symptoms: No RATNA MADRID - 07/22/2010 13:12 CDT Source: [facility] [employer] Document Id: [id number] CDT!4 documented in this encounter Miscellaneous Notes Telephone Encounter - Conversion, Historical Provider Ser - 02/12/2014 9:33 AM CST *Phone Message Document Contains Addenda Addendum by IGLESIA PEREA on 12 February 2014 09:55:03 MANPOWER DEVELOPMENT ADVISOR Patient was previous patient of Dr. Dumas on [place]. Will be faxing request for CPAP rx to [phone]. From: TEODORO KELSEY ([facility] Speed Operator) To: Ears Nose Throat/Audiology Nurse; Sent: 02/12/2014 09:33:35 MANPOWER DEVELOPMENT ADVISOR Subject: *Phone Message Caller is: ( x ) Patient ( ) Mother ( ) Father ( ) Spouse ( ) Daughter ( ) Son ( ) Pharmacy ( ) Other: Physician: Patient MRN #: Reason for Call: S: Patient would like to be called back B: Patient stated something regarding a fax that was not sent to where it needs to go? A: R: He can be reached at [phone] Message: Advice/Action: Source used: ( ) Verbalizes understanding [...] back cell phone number ( ) Source: [facility] [employer]ART Document Id: [id number] documented in this encounter Plan of Treatment Upcoming Encounters Date Type Specialty Care Team Description 02/11/2022 Appointment Laboratory Medicine Neli Hearn M.D. [address] [place] [phone] (Wo rk) 02/14/2022 Office Visit Family Medicine Lilli Hearn M.D. [address] [place] [phone] (Wo rk) documented as of this encounter Visit Diagnoses Not on filedocumented in this encounter
--- OUTSIDE RECORDS SUMMARY | 2021-12-28 10:03 | XMS_ITS | Encounter Summary ---
:1945 Author Organization [facility] Address [address] [place] [address] Care Team Providers Name Role Phone Unavailable Primary Care Provider Unavailable Encounter Details Date Type Department Care Team Description 06/07/[address] [facility] JENNIFERNeli Lucas M.D. [address] [place] [address] (Wo rk) Social History Tobacco Use Types [...] at Date Recorded Male 04/20/2021 3:56 PM [employer] documented as of this encounter Last Filed Vital Signs Vital Sign Reading Time Taken Comments Blood Pressure 144/96 06/07/2012 2:20 PM CDT Pulse 74 06/07/2012 2:17 PM CDT Temperature - - Respiratory Rate - - Oxygen Saturation - - Inhaled Oxygen Concentration - - Weight 151 kg (333 lb 5.4 oz) 06/07/2012 2:17 PM CDT Height 171 cm (5' 7.32) 06/07/2012 2:17 PM CDT Body Mass Index 51.71 06/07/2012 2:17 PM CDT documented in this encounter Medications at Time of Discharge Medication Sig Dispensed Refills Start Date End Date aspirin [address] tablet Take 81 mg by mouth. 0 aspirin 81 mg capsule Take 1 tablet by 0 07/16/19 11 01/09/2018 mouth daily. documented as of this encounter Progress Notes Lilli Jarrell M.D. - 06/07/2012 2:03 PM CDT [id number] HISTORY OF PRESENT ILLNESS Medhat is a 66-year-old gentleman here today for refill of his medications. He is doing well. He has been feeling well without complaints or concerns. He is still laid off from work but that has not really been overly stressful for him. He had a good winter. 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 SOCIAL HISTORY He is a nonsmoker. He does not drink alcohol. 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 SYSTEMS REVIEW Negative for chest pain, palpitation, shortness of breath, dyspnea on exertion, orthopnea, PND. He has still some nocturia. He takes [employer] for urinary frequency and that works fairly well for him. He has had no lightheadedness or dizziness. No focal numbness, tingling or weakness. No rashes. Hefeels rested in the morning. He denies early fatigue. He has been exercising regularly at home and has lost a couple of pounds, maybe 3 to 4 pounds this month that he wishes could be more. He denies body aches or joint aches and he has no edema. CURRENT MEDICATIONS Reconciled in the chart. PAST MEDICAL/SURGICAL HISTORY Updated by me in the chart. PHYSICAL EXAMINATION GENERAL: He is in no apparent distress. Vitals are as noted. Mood and affect are somewhat apprehensive but he is very pleasant. He is in no apparent distress. He is alert. He is a good historian. His weight is down to 151 kg. NECK: Supple without JVD, carotid bruits or thyromegaly. LUNGS: Clear to auscultation bilaterally. HEART: Regular rate and rhythm without murmur. EXTREMITIES: No cyanosis, clubbing or edema. SKIN: Without rashes. IMPRESSION/REPORT/PLAN 1. Uncontrolled hypertension. We talked about options. 2. Benign prostatic hyperplasia (BPH,) on saw palmetto. What we opted to do because he is very apprehensive about adding more medicines is that we opted to take him off the saw palmetto and place him on Hytrin see if that does not help with both problems. We started him on a very low dose of 1 mg to see if that can control blood pressure and his benign prostatic hyperplasia (BPH) issues without unpleasant side effects. He is very sensitive to side effects of medications. We left his other medications alone. I did talk to him about weaning off the glucosamine to see if that is even helpful at this time as he is on a very low dose of it. His last PSA was 0.85. He does have a family history of prostate cancer. Blood work is done today fasting for cholesterol. 3. History of major depression in remission. His PHQ-9 today is 0. Lilli Jarrell M.D./garth DOCID: [id number] Electronically Signed By: LILLI JARRELL MD On: 06/19/2012 01:54 PM Source: [facility] MHSDOLBEYNONRADSYS Document Id: [id number] documented in this encounter Miscellaneous Notes Miscellaneous - Conversion, Historical Provider Ser - 08/06/2012 1:30 PM CDT General Message Document Contains Addenda Addendum by MERVIN JAUREGUI RN on 06 Aug 2012 15:23:23 CDT patient notified that he needs to contact the insurance company. Addendum by MERVIN JAUREGUI RN on 06 Aug 2012 14:56:17 CDT From: MERVIN JAUREGUI RN ([facility] Nurse) To: LILLI JARRELL MD; Sent: 08/06/2012 14:56:17 CDT Subject: RE: General Message Attempted to request PA. That is not an option. The plan will not cover this medication. They told me that the patient needs to contact the insurance company for alternative options. They were not evenable to give me any idea about possible alternatives. called patient to notify that he needs to call the insurance company to get more information, no answer. Left message for patient to call back. Addendum by LILLI JARRELL MD on 06 Aug 2012 14:30:58 CDT From: LILLI JARRELL MD To: [facility] Nurse; Sent: 08/06/2012 14:30:58 CDT Subject: RE: General Message PA needed. He has not tolerated any other medications. From: PAT HINDS RN ([facility] Nurse) To: LILLI JARRELL MD; Sent: 08/06/2012 13:30:16 CDT Subject: General Message Received prior auth request for patient's Bupropion HCL ER 150 mg. No previous prior auth was found in paper chart. Would you like us to initiate prior auth or would you prefer to change med? Please advise. Patient ([employer]). Phone number for PA: [phone] Source: [facility] POWERCHART Document Id: [id number] Miscellaneous - Lilli Jarrell M.D. - 06/07/2012 4:21 PM CDT Ambulatory Patient Summary [address] [place] [address] Visit Information Name: FRANSICO MACDONALD [facility] Number: [id number] Current Date: 06/07/2012 16:21:30 Physicians Attending Provider: LILLI JARRELL MD Primary Care Provider: LILLI JARRELL MD Your Medications Here is a list of your medications. It is important to take your medications as directed. Use a pillbox or chart to help remind you to take your medications. Please let your doctor or nurse know if you have problems taking your medications. Medication/Strength Dose Route Frequency Indications/Special Instructions/Comments terazosin (Hytrin 1 mg oral capsule) 1 mg Oral once a day (at bedtime) glucosamine/chondroitin/methylsulfonylmethane (Osteo Bi-Flex Advanced oral tablet) losartan (losartan 100 mg oral tablet) 100 mg Oral once a day fluticasone nasal (fluticasone 50 mcg/inh nasal spray) 1 spray(s) Nasal once a day hydrochlorothiazide (hydrochlorothiazide 25 mg [...] once a day as needed for pain Attention: If you have any medications at [...] No Appointments found Your Goals/Additional instructions: Source: [facility] POWERCHART Document Id: [id number] Miscellaneous - Lilli Jarrell M.D. - 06/07/2012 4:21 PM CDT Ambulatory Depart Summary [address] [address] Visit Information Name: FRANSICO MACDONALD [facility] Number: [id number] Visit Date: 06/07/2012 16:21:29 Attending Provider: LILLI JARRELL MD Primary Care Provider: LILLI JARRELL MD FRANSICO MACDONALD has been given the following list of medications: Your Medications It is important to take your medications as directed. Use a pill box or chart to help remind you to take your medications. Please let your doctor or nurse know if you have problems taking your medications. Medication/Strength Dose Route Frequency Indications/Special Instructions/Comments terazosin (Hytrin 1 mg oral capsule) 1 mg Oral once a day (at bedtime) glucosamine/chondroitin/methylsulfonylmethane (Osteo Bi-Flex Advanced oral tablet) losartan (losartan 100 mg oral tablet) 100 mg Oral once a day fluticasone nasal (fluticasone 50 mcg/inh nasal spray) 1 spray(s) Nasal once a day hydrochlorothiazide (hydrochlorothiazide 25 mg [...] once a day as needed for pain Attention: If you have any medications at home that are not on this list, DO NOT take them until youcontact your provider for clarification. Additional Information: Source: [facility] POWERCHART Document Id: [id number] Miscellaneous - Katy Shannon L.P.NFamilia - 06/07/2012 3:23 PM CDT PHQ-9 PHQ-9 Entered On: 06/07/2012 15:23 CDT Performed On: 06/07/2012 15:23 CDT by KATY SHANNON LPN PHQ-9 Little interest or pleasure in doing things : Not at all Feeling down, depressed, or hopeless : Not at all Trouble falling or staying asleep, or sleeping too much : Not at all Feeling tired or having little energy : Not at all Poor appetite or overeating : Not at all Feeling bad about yourself or that you are a failure : Not at all Trouble concentrating on things : Not at all Moving or speaking slowly; restless or fidgety : Not at all Thoughts that you would be better off /hurting self : Not at all PHQ-9 Calculated Score : 0 KATY SHANNON LPN - 06/07/2012 15:23 CDT Source: [employer] Document Id: [id number] Miscellaneous - Katy Shannon L.P.N. - 06/07/2012 2:20 PM CDT Ambulatory Vitals Height Weight Ambulatory Vitals Height Weight Entered On: 06/07/2012 14:20 CDT Performed On: 06/07/2012 14:20 CDT by KATY SHANNON LPN Vitals/Ht/Wt Systolic Blood Pressure : 144mmHg (HI) Diastolic Blood Pressure : 96mmHg (>HHI) NIBP Mean : 112mmHg KATY SHANNON LPN - 06/07/2012 14:20 CDT Source: [employer] Document Id: [id number] Kavyacellaneous - Katy Shannon L.P.N. 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/History Entered On: 06/07/2012 14:19 CDT Performed On: 06/07/2012 14:17 CDT by KATY SHANNON LPN Intake Chief Complaint : follow up visit from last time Temperature Core : 36.8C(Converted to: 98.2DegF) Peripheral Pulse Rate : 74/min Systolic Blood Pressure : 146mmHg (HI) Diastolic Blood Pressure : 96mmHg (>HHI) NIBP Mean : 113mmHg SpO2 : 97% Height : 171cm(Converted to: 5ft 7inch(es), 67.32inch(es)) Actual Weight : 151.2kg(Converted to: 333lb 5oz) Dosing Weight Clinic : 151.20kg Clinic BSA : 2.68 Body Mass Index : 51.71kg/m2 KATY SHANNON LPN - 06/07/2012 14:17 CDT General Info Languages : Syrian KATY SHANNON LPN - 06/07/2012 14:17 CDT Subjective Pain Symptoms : No KATY SHANNON LPN - 06/07/2012 14:17 CDT Dependent Habits Tobacco Use/Currently Using : No Smoking Status : Former smoker KATY SHANNON LPN - 06/07/2012 14:17 CDT Allergy Allergies (Active) Tylenol Estimated Onset Date: Unspecified ; Created By: FADI TODD; Reaction Status: Active ; Category: Drug ; Substance: Tylenol ; Type: Allergy ; Updated By: FADI TODD; Reviewed Date: 06/07/2012 14:08 CDT Source: [facility] POWERCHART Document Id: [id number] documented in this encounter Plan of Treatment Upcoming Encounters Date Type Specialty Care Team Description 02/11/2022 Appointment Laboratory Medicine Neli Jarrell M.D. [address] [place] [facility] [phone] (Stephon caldera) 02/14/2022 Office Visit Family Medicine Lilli Jarrell M.D. [address] [place] [facility] [phone] (Stephon caldera) documented as of this encounter Procedures Procedure Name Priority Date/Time Associated Diagnosis Comme nts LIPID PANEL, S Routine 06/07/2012 3:15 PM Results for this CDT procedure are i n the results section. HEMOGLOBIN, B Routine 06/07/2012 3:15 PM Results for this CDT procedure are i n the results section. THYROID-STIMULATING Routine 06/07/2012 3:15 PM Re sults for this HORMONE-SENSITIVE CDT procedure are in (S-TSH) the results section. BASIC METABOLIC Routine 06/07/2012 3:15 PM Result s for this PANEL, S/P CDT procedure are i n the results section. documented in this encounter Results Hemoglobin (06/07/2012 3:15 PM CDT) athologist Signature Hemoglobin 14.9 13.5 - 17.5 POWERCHART GDL Comment: Lot # [id number] Exp 01/12/2014 Specimen (Source) Anatomical Collection Method Collection Time Re ceived Time Location / / Volume Laterality Blood 06/07/2012 3:15 PM CDT Lilli Jarrell M.D. LAB BLOOD ADD-ON Performing Organization Address City/State/ZIP Code Phon e Number POWERCHART (ABNORMAL) Lipid Panel (06/07/2012 3:15 PM CDT) [facility] gist Method Time Signature Cholesterol, Total 214 (H) 120 - 200 POWERCHART MGDL HX HDL 31 (L) >=40 MGDL POWERCHART Triglycerides 377 (H) 35 - 185 POWERCHART MGDL Calculated LDL 108 60 - 130 POWERCHART MGDL Total 6.9 (H) 0.0 - 4.5 POWERCHART Cholesterol/HDL Ratio HXLDL/HDL 3 POWERCHART Specimen (Source) Anatomical Collection Method Collection Time Re ceived Time Location / / Volume Laterality Blood 06/07/2012 3:15 PM CDT Lilli Jarrell M.D. LAB BLOOD ADD-ON Performing Organization Address City/State/ZIP Code Phon e Number POWERCHART (ABNORMAL) BMP (Basic Metabolic Panel) (06/07/2012 3:15 PM CDT) P athologist Signature Sodium, S 139 135 - 145 POWERCHART MMOLL Potassium, S 4.0 3.5 - 5.0 POWERCHART MMOLL Chloride, S 98 95 - 106 POWERCHART MMOLL CO2 Total 28 21 - 32 POWERCHART MMOLL BUN (Blood Urea 14 5 - 24 POWERCHART Nitrogen), S MGDL Creatinine 0.9 0.8 - 1.3 POWERCHART MGDL Calcium, Total, 9.9 8.4 - 10.3 POWERCHART S MGDL Anion Gap 17 (H) 7 - 16 POWERCHART MMOLL HXeGFR (MDRD) >60.0 >=60.0 POWERCHART eGFR >60.0 >=60.0 POWERCHART Black/ Glucose 98 70 - 139 POWERCHART MGDL Specimen (Source) Anatomical Collection Method Collection Time Re ceived Time Location / / Volume Laterality Blood 06/07/2012 3:15 PM CDT Lilli Jarrell M.D. LAB BLOOD ADD-ON Performing Organization Address City/State/ZIP Code Phon e Number POWERCHART Thyroid-Stimulating Hormone-Sensitive (s-TSH) (06/07/2012 3:15 PM CDT) P athologist Signature TSH 3.2 0.3 - 5.0 POWERCHART (Thyrotropin) DUY Comment: Reference values have not been established for patients that are less than 12 months of age. Specimen (Source) Anatomical Collection Method Collection Time Re ceived Time Location / / Volume Laterality Blood 06/07/2012 3:15 PM CDT Lilli Jarrell M.D. LAB BLOOD ADD-ON Performing Organization Address City/State/ZIP Code Phon e Number POWERCHART documented in this encounter Visit Diagnoses Not on filedocumented in this encounter
[2021-12-28 10:25] LABS: Basophils Absolute Auto 0.02 K/uL (0.00-0.30); Basophils Percent Auto 0.3 % (0.0-3.0); Eosinophils Absolute Auto 0.12 K/uL (0.00-0.50); Eosinophils Percent Auto 1.5 % (0.0-7.0); Hematocrit 38.9 % (37.0-53.0); Immature Granulocytes Abs Auto 0.03 K/uL (0.00-0.30); Lymphocytes Absolute Auto 2.54 K/uL (0.90-2.90); Lymphocytes Percent Auto 32.6 % (20-44); Mean Corpuscular HGB Conc 33 gm/dL (32-36); Mean Corpuscular Hemoglobin 30 pg (26-34); Mean Corpuscular Volume 89 fL (80-100); Monocytes Percent Auto 6.4 % (0.0-11.0); Neutrophils Absolute Auto 4.59 K/uL (1.7-7.0); Neutrophils Percent Auto 58.8 % (42.0-72.0); Platelet Count* 232 K/uL (140-440); RDW Coefficient of Variation % 12.4 % (11.5-15.5); Red Blood Count 4.37 m/uL (4.30-5.90)
[2021-12-28] MEDS: MORPHINE 4 MG/ML INJ IVP (10:25)
[2021-12-28] MEDS: KETOROLAC 30 MG/ML inj 15 MG IVP (10:25)
[2021-12-28] MEDS: 0.9 % SODIUM CHLORIDE 1000 ml 1,000 ML IV (10:26)
[2021-12-28] MEDS: ONDANSETRON 2 MG/ML inj 4 MG IVP (10:26)
[2021-12-28 10:27] LABS: Slide Review Reflex No
[2021-12-28 10:39] LABS: Chloride* 100 mmol/L (96-114); Potassium* 4.1 mmol/L (3.6-5.1); Sodium* 134 mmol/L (135-149)
[2021-12-28 10:42] LABS: Carbon Dioxide* 28 mmol/L (20-32); Creatinine* 0.9 mg/dL (0.5-1.5); Est. Creatinine Clearance* 66.92; Estimated Glomerular Filt Rate 90 ml/min
[2021-12-28 10:43] LABS: Blood Urea Nitrogen* 15 mg/dL (7-30); Calcium* 9.3 mg/dL (8.4-10.6); Glucose* 211 mg/dL (60-115)
[2021-12-28 10:46] LABS: C Reactive Protein* 1.6 mg/dL (0.5-1.0)
[2021-12-28 11:00] VITALS: BP 138/74; PULSE 78; RESP 16; O2SAT 93
--- NOTE | 2021-12-28 11:09 | CRLHL7_ITS ---
For Patients: As a result of the Century Cures Act, medical imaging exams and procedure reports are released immediately into your electronic medical record. You may view this report before your referring provider. If you have questions, please contact your health care provider. INDICATION: Pain, inability to move neck. TECHNIQUE: Noncontrast sagittal T1, T2, STIR and axial GRE sequences are provided. Comparison: MRI cervical spine February 09, 2017. FINDINGS: Slight straightening of expected cervical lordosis. Multilevel degenerative endplate changes otherwise the marrow signal is within normal limits. No evidence of acute fracture or aggressive osseous lesion. Mild degenerative retrolisthesis of C2 on C3 and C3 on C4. Multilevel intervertebral disc space narrowing facet arthropathy. The cord is of normal size and signal intensity. C2-C3: Disc osteophyte complex with facet arthropathy results in mild right spinal canal stenosis. Mild right and no significant left neural foraminal stenosis. C3-C4: Similar appearance of right posterior-lateral disc osteophyte complex/herniation resulting in moderate spinal canal stenosis and effacement of the ventral cord without discrete cord signal abnormality. Moderate to severe right and moderate left neural foraminal stenosis. C4-C5: Disc osteophyte complex with facet arthropathy without significant spinal canal or neural foraminal stenosis. C5-C6: Disc osteophyte complex with facet arthropathy resulting in minimal spinal canal stenosis as well as moderate to severe bilateral neural foraminal stenosis. C6-C7: Disc osteophyte complex with facet arthropathy resulting in minimal spinal canal stenosis. Mild to moderate bilateral neural foraminal stenosis. C7-T1: No significant spinal canal or neural foraminal stenosis. Previously seen lipoma within the soft tissues neck is no longer identified and may be surgically absent. The prevertebral and paraspinal soft tissues are otherwise unremarkable. IMPRESSION: Findings are overall similar to MRI cervical spine from February 09, 2017. Multilevel degenerative spinal canal stenosis most notably at C3-C4 due to right posterior-lateral disc osteophyte complex/herniation which results in moderate spinal canal stenosis and effacement of the ventral cord without discrete cord signal abnormality. Multilevel degenerative neural foraminal stenosis most notably moderate to severe right and moderate left at C3-C4, moderate to severe bilaterally at C5-C6, and mild to moderate bilateral at C6-C7. Dictated by Marlon Sher MD @ 12/28/2021 12:39:25 PM (Electronically Signed)
[2021-12-28 12:00] VITALS: BP 133/77; PULSE 74; RESP 20; O2SAT 93
--- NOTE | 2021-12-28 13:11 | ED.NURSE ---
Pt prescribed Pl[place] via Screen, but discussed acetaminophen allergy with pt. Pt states he is not allergic to Tylenol, but prefers not to take it d/t previous overdose. MD updated and MD prescribing different medication to pt's pharmacy. Pt aware.
--- NOTE | 2021-12-28 16:27 | ED_ITS ---
HPI - Neck Pain/Injury General Date Seen: 12/28/21 Chief Complaint: Neck Injury/Pain Stated Complaint: Neck Pain Time Seen by Provider: 12/28/21 09:41 Source: patient Mode of arrival: ambulatory Limitations: no limitations History of Present Illness HPI Narrative: Patient is the ambulatory 76-year-old gentleman who presents here with neck pain, he says he is unable to really move his neck after he slept on it woke up with that within a kink, denies any significant numbness or tingling weakness in his extremities, does have a little bit of chills associated with this. No nausea vomiting denies any headache or falls, weakness in his arms or his legs, or previous significant neck problems. complaint: neck pain Onset (ago): day(s) Place: home Radiation: right shoulder and left shoulder Severity: moderate Quality: burning Duration: constant Relieving factors: none Exacerbating factors: movement of extremity and movement of neck Associated symptoms: none Treatments prior to arrival: acetaminophen and ibuprofen Related Data Home Medications Medication Instructions Recorded Confirmed amlodipine 5 mg tablet mg 12/28/21 bupropion HCl 300 mg 24 hr tablet, mg PO 12/28/21 extended release furosemide 20 mg tablet mg 12/28/21 losartan 100 mg tablet mg 12/28/21 meclizine 25 mg tablet mg 12/28/21 metformin 500 mg tablet,extended mg PO 12/28/21 release 24 hr naproxen 500 mg tablet mg 12/28/21 pravastatin 80 mg tablet mg 12/28/21 terazosin 1 mg capsule mg 12/28/21 Previous Rx's Medication Instructions Recorded tramadol 50 mg tablet 50 mg PO Q8H PRN pain #14 tabs 12/28/21 Allergies Allergy/AdvReac Type Severity Reaction Status Date / Time acetaminophen [From Tylenol] Allergy Verified 12/28/21 09:20 Review of Systems Status of ROS: Reports: 10 or more systems reviewed and unremarkable except as noted in History and below PFSH PFSH Social History Smoking Status: Former smoker Second hand tobacco smoke exposure: No How often do you have a drink containing alcohol: never AUDIT-C Alcohol total score: 0 Non-prescribed substance use: denies use Exam Narrative: Exam Narrative: Patient is seen and evaluated, his blood pressure distally high this came down nicely with pain control. His pupils are equal round reactive to light there is no scleral icterus redness is TMs are normal his oropharynx is normal there is no adenopathy anterior posterior chains, his neck shows really limited range of motion from 8 cm to 12 cm. His lateral motion is really negligible also. Approximately 20? either way. There is no lateral neck flexion notable. He has tenderness to palpation over C7 area. There is no masses, there is no bogginess, a noted with this. 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 Const: Vital Signs, click to edit/add: Vital Signs - 24 hr 12/28/21 09:16 12/28/21 11:00 12/28/21 12:00 Temperature 97.7 F Pulse Rate [Pulse Oximeter] 93 78 74 Respiratory Rate 20 16 20 Blood Pressure [Ri ght Upper Arm] 212/85 H 138/74 133/77 Pulse Oximetry 96 93 93 Oxygen Delivery Me thod Room Air Room Air Room Air Course Vital Signs Vital signs: Initial Vital Signs Temperature 97.7 F 12/28/21 09:16 Temperature Source Temporal Artery Scan 12/28/21 09:16 Pulse Rate 93 12/28/21 09:16 Respiratory Rate 20 12/28/21 09:16 Blood Pressure 212/85 H 12/28/21 09:16 Blood Pressure Mean 127 12/28/21 09:16 Blood Pressure Position Sitting 12/28/21 09:16 Pulse Oximetry 96 12/28/21 09:16 Oxygen Delivery Method 12/28/21 09:16 Vital Signs Temperature 97.7 F 12/28/21 09:16 Pulse Rate 93 12/28/21 09:16 Respiratory Rate 20 12/28/21 09:16 Blood Pressure 212/85 H 12/28/21 09:16 Pulse Oximetry 96 12/28/21 09:16 Oxygen Delivery Method 12/28/21 09:16 Temperature 97.7 F 12/28/21 09:16 Pulse Rate 74 12/28/21 12:00 Respiratory Rate 20 12/28/21 12:00 Blood Pressure 133/77 12/28/21 12:00 Pulse Oximetry 93 12/28/21 12:00 Oxygen Delivery Method 12/28/21 12:00 MDM - Neck Pain/Injury Differential Diagnosis Differential diagnosis: Likely disc disorder of cervical region, whiplash injury to neck, closed subluxation of cervical spine, fracture of cervical spine without lesion of spinal cord, cervical radiculopathy, vertebral artery dissection, torticollis, cervical spondylosis and strain of neck muscle Medical Records Attestation: I reviewed the patient's medical records. Lab Data Attestation: I reviewed the patient's lab results. Labs: Lab Results 12/28/21 12/28/21 Range/Units 10:10 10:10 WBC 7.80 (4.50-11.00) K/uL RBC 4.37 (4.30-5.90) m/uL Hgb 13.0 L (13.5-17.5) gm/dL Hct 38.9 (37.0-53.0) % MCV 89 (80-100) fL MCH 30 (26-34) pg MCHC 33 (32-36) gm/dL RDW Coeff of Can 12.4 (11.5-15.5) % Plt Count 232 (140-440) K/uL Neut % (Auto) 58.8 (42.0-72.0) % Lymph % (Auto) 32.6 (20-44) % [place] % (Auto) 6.4 (0.0-11.0) % Eos % (Auto) 1.5 (0.0-7.0) % Baso % (Auto) 0.3 (0.0-3.0) % Neut # (Auto) 4.59 (1.7-7.0) K/uL Lymph # (Auto) 2.54 (0.90-2.90) K/uL [place] # (Auto) 0.50 (0.00-0.90) K/UL Eos # (Auto) 0.12 (0.00-0.50) K/uL Baso # (Auto) 0.02 (0.00-0.30) K/uL Abs Immat Gran (auto) 0.03 (0.00-0.30) K/uL Sodium 134 L (135-149) mmol/L Potassium 4.1 (3.6-5.1) mmol/L Chloride 100 (96-114) mmol/L Carbon Dioxide 28 (20-32) mmol/L BUN 15 (7-30) mg/dL Creatinine 0.9 (0.5-1.5) mg/dL Estimated Creat Clear 66.92 Estimated GFR 90 ml/min Glucose 211 H (60-115) mg/dL Calcium 9.3 (8.4-10.6) mg/dL C-Reactive Protein 1.6 H (0.5-1.0) mg/dL Imaging Data CT- Other: Radiologist's impression: Patient: Medhat Macdonald MR#: [id number] : 1945 Acct:[id number] Loc: ED Service Date: 12/28/[address]: Ordering Physician: Jag Ang M.D. Date of Service: 12/28/21 Procedure(s): MR cervical spine wo con Accession Number(s): [id number] cc: Provider,Not a Local ; Jag Ang M.D.~ For Patients:? As a result of the Century Cures Act, medical imaging exams and procedure reports are released immediately into your electronic medical record.? You may view this report before your referring provider.? If you have questions, please contact your health care provider. INDICATION: Pain, inability to move neck. TECHNIQUE: Noncontrast sagittal T1, T2, STIR and axial GRE sequences are provided. Comparison: MRI cervical spine February 09, 2017. FINDINGS: Slight straightening of expected cervical lordosis. Multilevel degenerative endplate changes otherwise the marrow signal is within normal limits. No evidence of acute fracture or aggressive osseous lesion. Mild degenerative retrolisthesis of C2 on C3 and C3 on C4. Multilevel intervertebral disc space narrowing facet arthropathy. The cord is of normal size and signal intensity. C2-C3: Disc osteophyte complex with facet arthropathy results in mild right spinal canal stenosis. Mild right and no significant left neural foraminal stenosis. C3-C4: Similar appearance of right posterior-lateral disc osteophyte complex/herniation resulting in moderate spinal canal stenosis and effacement of the ventral cord without discrete cord signal abnormality. Moderate to severe right and moderate left neural foraminal stenosis. C4-C5: Disc osteophyte complex with facet arthropathy without significant spinal canal or neural foraminal stenosis. C5-C6: Disc osteophyte complex with facet arthropathy resulting in minimal spinal canal stenosis as well as moderate to severe bilateral neural foraminal stenosis. C6-C7: Disc osteophyte complex with facet arthropathy resulting in minimal spinal canal stenosis. Mild to moderate bilateral neural foraminal stenosis. C7-T1: No significant spinal canal or neural foraminal stenosis. Previously seen lipoma within the soft tissues neck is no longer identified and may be surgically absent. The prevertebral and paraspinal soft tissues are otherwise unremarkable. IMPRESSION: Findings are overall similar to MRI cervical spine from February 09, 2017. Multilevel degenerative spinal canal stenosis most notably at C3-C4 due to right posterior-lateral disc osteophyte complex/herniation which results in moderate spinal canal stenosis and effacement of the ventral cord without discrete cord signal abnormality. Multilevel degenerative neural foraminal stenosis most notably moderate to severe right and moderate left at C3-C4, moderate to severe bilaterally at C5-C6, and mild to moderate bilateral at C6-C7. Dictated by Marlon Sher MD @ 12/28/2021 12:39:25 PM (Electronically Signed) Patient: Medhat Macdonald MR#: [id number] : 1945 Acct:[id number] Loc: ED Service Date: 12/28/[address]: Ordering Physician: Jag Ang M.D. Date of Service: 12/28/21 Procedure(s): CT cervical spine wo con Accession Number(s): [id number] cc: Provider,Not a Local ; Jag Ang M.D.~ For Patients:? As a result of the Century Cures Act, medical imaging exams and procedure reports are released immediately into your electronic medical record.? You may view this report before your referring provider.? If you have questions, please contact your health care provider. INDICATION: Neck pain. TECHNIQUE: CT cervical spine without contrast. COMPARISON: None. FINDINGS: Vertebrae: Alignment is normal.? There are no fractures or suspicious bony lesions.? Discs and facet joints: Moderate to severe degenerative disc spondylosis involving all levels of the cervical spine with the exception of C4-5. Moderate diffuse facet joint spondylosis. Extraspinal findings: Prevertebral soft tissues, visualized airway, and visualized lungs are unremarkable.? IMPRESSION: No acute abnormality evident. There is moderate to severe diffuse degenerative disc and facet joint spondylosis. Please note that all CT scans at this facility use dose modulation, iterative reconstruction, and/or weight-based dosing when appropriate to reduce radiation dose to as low as reasonably achievable. Dictated by Mu Bryant MD @ 12/28/2021 10:39:07 AM (Electronically Signed) Discharge Plan Discharge Clinical Impression: Neck and shoulder pain, Degenerative disc disease, cervical Patient Disposition: Home, Self-Care Condition: Stable Instructions: Degenerative Disc Disease (ED), Neck Pain (ED) Additional Instructions: Home, rest, use of Tylenol and or ibuprofen for the discomfort, pain medications as directed, I will give you a small supply, follow-up with primary care for ongoing treatment. Consider evaluation by a neck specialist Prescriptions: New tramadol 50 mg tablet 50 mg PO Q8H PRN (Reason: pain) Qty: 14 0RF No Action terazosin 1 mg capsule amlodipine 5 mg tablet pravastatin 80 mg tablet meclizine 25 mg tablet furosemide 20 mg tablet losartan 100 mg tablet metformin 500 mg tablet extended release 24 hr PO naproxen 500 mg tablet bupropion HCl 300 mg tablet extended release 24 hr PO Follow Up/Referrals: Provider,Not a Local [Primary Care Provider] - Stand Alone Forms: [employer] Info Instructions
== END 2021-12-28 13:11 | disposition home or self-care (01) ==
PROVIDERS: Emergency Provider Family Medicine
DX: M50.30 Other cervical disc degeneration, unspecified cervical region (principal)
CPT/HCPCS: 36415; 72125; 72141; 80048; 85025; 86140; 96361; 96374; 96375; 99283; 99284; 99285; J1885; J2270; J2405; J7030

== ENCOUNTER 2022-01-28 08:47 | Outpatient (CLI) | payer MEDICARE, BC, SELFPAY ==
--- OUTSIDE RECORDS SUMMARY | 2022-01-28 08:52 | XMS_ITS | Encounter Summary ---
:1945 Author Organization [facility] Address [address] [place] [address] Care Team Providers Name Role Phone Yolanda Colón APRN, C.N.P. Primary Care Provider [phone] Encounter Details Date Type Department Care Team [...] one Less than mo nthly 12/04/2019 occasion? Social Isolation Answer Date Recorded In a typical week, how many times do you More than three huy es a week 12/04/2019 talk on the phone with family, friends, or neighbors? How often do you get together with friends Once a week 12/04/2019 or relatives? How often do you attend buddhism or 1 to 4 times per year 11/2019 alevism services? 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 [address] [place] [facility] [address] (Wo rk) 02/14/2022 Office Visit Family Medicine Lilli Hearn M.D. [address] [place] [facility] [phone] (Wo rk) documented as of this encounter [...] documented as of this encounter Care Teams Dairy Grazer Relationship Specialty Start Date End Date Yolanda Colón APRN, C.N.P. PCP - General 09/08/16 01/19/22 documented as of this encounter
--- OUTSIDE RECORDS SUMMARY | 2022-01-28 08:52 | XMS_ITS | Encounter Summary ---
:1945 Author Organization [facility] Address [address] [place] [address] Care Team Providers Name Role Phone Yolanda Colón APRN, C.N.P. Primary Care Provider [phone] Reason for Visit Reason Comments Med Refill Encounter Details Date Type Department Care Team Description 12/29/2021 Refill Department of Family Medicine Yolanda Colón APRN, Med Refill in [facility] lela C.N.P. [address] [place], [place] [phone] [place] [phone] (Wo rk) Social History Tobacco Use Types [...] or relatives? How often do you attend cheondoism or 1 to 4 times per year 11/2019 yazdanism services? 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 [facility] 12/06/21 Office Visit Lilli Hearn M.D[facility] 12/03/21 Office Visit Lilli Hearn M.D. [facility] 12/01/21 Office Visit Lilli Hearn M.D. [facility] 09/15/21 Office Visit Lilli Hearn M.D. [facility] 08/25/21 Office Visit Lilli Hearn M.D. [facility] 08/11/21 Office Visit Lilli Hearn M.D. [facility] 05/14/21 Office Visit Lilli Hearn M.D. [facility] 05/07/21 Office Visit Lilli Hearn M.D. [facility] 05/05/21 Office Visit Lilli Hearn M.D. [facility] Showing recent visits within past 365 days with a meds authorizing provider and meeting all other requirements Future Appointments Date Type Provider Dept 01/05/22 Appointment Lilli Hearn M.D. [facility] 02/14/22 Appointment Lilli Hearn M.D. [facility] Showing future appointments within next 90 days with a meds authorizing provider and meeting all other requirements documented in this encounter Plan of Treatment Upcoming Encounters Date Type Specialty Care Team Description 02/11/2022 Appointment Laboratory Medicine Neli Hearn M.D. [address] [place] [facility] [address] (Wo rk) 02/14/2022 Office Visit Family Medicine Lilli Hearn M.D. [address] [place] [facility] [phone] (Wo rk) documented as of this encounter Visit Diagnoses Not on filedocumented in this encounter Additional Health Concerns Assessment Noted Time PHQ-9 Depression Total Score: 4 04/16/2019 10:58 AM CS T documented as of this encounter Care Teams Ceiling Cleaner Relationship Specialty Start Date End Date Yolanda Colón APRN, C.N.P. PCP - General 09/08/16 01/19/22 documented as of this encounter
--- OUTSIDE RECORDS SUMMARY | 2022-01-28 08:52 | XMS_ITS | Encounter Summary ---
:1945 Author Organization [facility] Address [address] [place] [address] Care Team Providers Name Role Phone Yolanda Colón APRN, C.N.P. Primary Care Provider [phone] Encounter Details Date Type Department Care Team Description 12/13/2021 Nurse Only Department of Family Medicine Aleja Damon, in [facility] thony L.P.N. 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 [address] [place] [phone] (Stephon caldera) 02/14/2022 Office Visit Family Medicine Lilli Hearn M.D. [address] [place] [phone] (Stephon caldera) documented as of this encounter Visit Diagnoses Not on filedocumented in this encounter Additional Health Concerns Assessment Noted Time PHQ-9 Depression Total Score: 4 04/16/2019 10:58 AM CS T documented as of this encounter Care Teams Director Banking Relationship Specialty Start Date End Date Yolanda Colón APRN, C.N.P. PCP - General 09/08/16 01/19/22 documented as of this encounter
--- OUTSIDE RECORDS SUMMARY | 2022-01-28 08:52 | XMS_ITS | Encounter Summary ---
:1945 Author Organization [facility] Address [address] [place] [address] Care Team Providers Name Role Phone Yolanda Colón APRN, C.N.P. 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 Call your doctor (or MIX TECHNICIAN/PA) when the office opens and make an [...] Laboratory Medicine Neli Hearn M.D. [address] [place] [address] (Wo rk) 02/14/2022 Office Visit Family Medicine Lilli Hearn M.D. [address] [place] [address] (Wo rk) documented as of this encounter Visit Diagnoses Not on filedocumented in this encounter Additional Health Concerns Assessment Noted Time PHQ-9 Depression Total Score: 4 04/16/2019 10:58 AM CS T documented as of this encounter Care Teams Wool Classer Relationship Specialty Start Date End Date Yolanda Colón APRN, C.N.P. PCP - General 09/08/16 01/19/22 documented as of this encounter
--- OUTSIDE RECORDS SUMMARY | 2022-01-28 08:52 | XMS_ITS | Clinical Summary ---
:1945 Author Organization [facility] [place] [address] Care Team Providers Name Role Phone Nonstaff, [...] bedtime. fluticasone (50 mcg per Inhale 1 [place] 1 Bottle 0 05/14/2013 Active actuation) nasal [...] Comments Blood Pressure 174/94 05/14/2013 10:00 AM LOGISTICS AND PLANNING MANAGER Pulse 78 05/14/2013 10:00 AM LOGISTICS AND PLANNING MANAGER Temperature 37.2 ??C (99 ??F) 07/14/2010 9:39 AM CDT Respiratory Rate 16 07/28/2010 2:59 PM CDT Oxygen Saturation 95% 05/14/2013 10:00 AM LOGISTICS AND PLANNING MANAGER Inhaled Oxygen Concentration - - Weight 153.8 kg (339 lb) 05/14/2013 10:00 AM LOGISTICS AND PLANNING MANAGER Height 173.4 cm (5' 8.25) 04/23/2010 1:28 PM LOGISTICS AND PLANNING MANAGER Body Mass Index 51.17 04/23/2010 1:28 PM LOGISTICS AND PLANNING MANAGER Plan of Treatment Health Maintenance Due Date Last Done Comments Depression screening for age 12+ 1959 BMI (ht and wt on same day) for 10/26/1965 age 18+ Colonoscopy through age 75 10/26/1992 Zoster (shingles) series for age 0810/26/1997 50+ (1 of 2) Pneumococcal series for age 65+ (1 10/26/2012 - PCV) Lipids for age 45-75 04/05/2015 04/05/2010, 10/10/2009, 04/24/2009, Additional history exists Tetanus booster 03/05/2018 03/05/2008 COVID-19 vaccine series (2 - 02/18/2021 01/28/2021 Pfizer series) Influenza for age 65+ 11/25/2021 Tdap Completed 03/05/2008 Hepatitis C screening for age Completed 01/05/2011 18-79 Results Not on filefrom Last 3 Months Insurance Payer Benefit Plan / Subscriber ID Effective Phone Address T ype Group Dates RISK MANAGEMENT RISK MANAGEMENT [id number] 2011-Pre 100 [place] [id number] [address] BL[address] [place]OSS [id number] 2016-Prese [address] [address] [place], [place] [phone] BL[place] BLUE [place]OSS [id number] 2016-[place] [address] [id number] [place] [phone] [id number] (Home) [place] [id number] ReggieedenilsonMedhat black Third Alliance Party Self 1945 [id number] Li[address] (Home) [place] [id number] [address] Personal/Family Spouse 1946 [id number] [address] (Home) [place] [email or web address] [facility] Streaming Era/Search Initiatives 03/27/2000 [id number] [address]HA (Home) [place] [phone] [place] (Work) [id number] Care Teams Mediator Relationship Specialty Start Date End Date Nonstaff, Doctor PCP - General 11/05/10 NON STAFF DOCTOR Pcp, No 05/24/13 .
--- OUTSIDE RECORDS SUMMARY | 2022-01-28 08:52 | XMS_ITS | Encounter Summary ---
:1945 Author Organization [facility] Address [address] [place] [address] Care Team Providers Name Role Phone Yolanda Colón APRN, C.N.P. Primary Care Provider [phone] Reason for Visit Reason Comments Follow-up Encounter Details Date Type Department Care Team Description 12/03/2021 Office Visit Department of Family Lilli Hearn V enous Insufficiency Chronic Peripheral (Primary Dx); Medicine in M.D. Stasis Ulcer With Varicose Vein Left (HC C); [place], [facility] Cellulitis [place], [place] [address] [place] [address] [place], [place] [phone] (Wo rk) [address] [phone] Social History Tobacco Use Types Packs/Day Years [...] 1 to 4 times per year 11/2019 restorationism services? 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 - 12/03/2021 9:30 AM CDT SUBJECTIVE [...] Morbid Obesity Body Mass Index 45.0-49.9 Adult ([facility]) Anxiety Current Outpatient Medications: amLODIPine (NORVASC) 5 [...] Laboratory Medicine Neli Hearn M.D. [address] [place] [phone] (Stephon caldera) 02/14/2022 Office Visit Family Medicine Lilli Hearn M.D. 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 PCP - General 09/08/16 01/19/22 documented as of this encounter
--- OUTSIDE RECORDS SUMMARY | 2022-01-28 08:52 | XMS_ITS | Encounter Summary ---
:1945 Author Organization [facility] Address [address] [place] [address] Care Team Providers Name Role Phone Yolanda Colón APRN C.N.P. Primary Care Provider [phone] Reason for Visit Reason Comments Edema L/E's swelling. Fatigued, SO B. Lower Lt leg ulcer x 2 weeks Appointment Request (Routine) - Closed Specialty Diagnoses / Procedures Referred By Contact Refer red To Contact Family Medicine Referral ID Status Reason Start Date Expiration Date Visits Requ ested Visits Authorized [id number] Closed 11/22/2021 11/22/2022 1 1 Encounter Details Date Type Department Care Team Description 12/01/2021 Office Visit Department of Family Lilli Jarrell S tasis Ulcer With Medicine in M.D. 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 - 12/01/2021 11:30 AM CDT SUBJECTIVE [...] Morbid Obesity Body Mass Index 45.0-49.9 Adult ([facility]) Anxiety Current Outpatient Medications: amLODIPine (NORVASC) 5 [...] Laboratory Medicine Neli Jarrell M.D. [address] [place] [phone] (Stephon caldera) 02/14/2022 Office Visit Family Medicine Lilli Jarrell M.D. [address] [place] [phone] (Stephon caldera) documented as of this encounter Procedures Procedure Name Priority Date/Time Associated Diagnosis Comme nts CBC WITH Routine 12/01/2021 11:52 AM Stasis Ulcer With Res ults for this DIFFERENTIAL, B CDT Varicose Vein Left proced ure are in (HCC) the results section. documented in this encounter Results (ABNORMAL) CBC with Differential, Blood (12/01/2021 11:52 AM CDT) [facility] gist Method Time Signature Hemoglobin 12.9 (L) [...] Organization Address City/State/ZIP Code Phon e Number [facility]- [address] [place] [address] [address] [facility] [place] [address] [place] [address] [place] documented in this encounter Visit Diagnoses Diagnosis Stasis Ulcer With Varicose Vein Left (HC C) - Primary documented in this encounter Additional Health Concerns Assessment Noted Time PHQ-9 Depression Total Score: 4 04/16/2019 10:58 AM CS T documented as of this encounter Care Teams Health/Safety Job Titles Relationship Specialty Start Date End Date Yolanda Colón APRN, C.N.P. PCP - General 09/08/16 01/19/22 documented as of this encounter
--- OUTSIDE RECORDS SUMMARY | 2022-01-28 08:52 | XMS_ITS | Encounter Summary ---
:1945 Author Organization [facility] Address [address] [place] [address] Care Team Providers Name Role Phone Yolanda Colón APRN, C.N.P. Primary Care Provider [phone] Reason for Visit Reason Comments Follow-up Encounter Details Date Type Department Care Team Description 12/06/2021 Office Visit Department of Family Lilli Hearn V enous Insufficiency Chronic Peripheral (Primary Dx); Medicine in M.D. 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 [address] [place] [phone] (Stephon caldera) 02/14/2022 Office Visit Family Medicine Lilli Hearn M.D. [address] [place] [phone] (Stephon caldera) documented as of this encounter Visit Diagnoses Diagnosis Venous Insufficiency Chronic Peripheral - Primary Stasis Ulcer With Varicose Vein Left (HC C) Cellulitis documented in this encounter Additional Health Concerns Assessment Noted Time PHQ-9 Depression Total Score: 4 04/16/2019 10:58 AM CS T documented as of this encounter Care Teams Prototype Carpenter Relationship Specialty Start Date End Date Yolanda Colón APRN, C.N.P. PCP - General 09/08/16 01/19/22 documented as of this encounter
--- OUTSIDE RECORDS SUMMARY | 2022-01-28 08:52 | XMS_ITS | Encounter Summary ---
:1945 Author Organization [facility] Address [address] [place] [address] Care Team Providers Name Role Phone Lilli Hearn M.D. Primary Care Provider Reason for Referral Outpatient (Routine) - Authorized Specialty Diagnoses / Procedures Referred By Contact Refer red To Contact Diagnoses Tinnitus Bilateral Pain Neck Mechanical Stenosis Cristofer Cervical Lilli Hearn M.D. [address] [place] [address] [phone] Referral ID Status Reason Start Expiration Visits Visits Date Date Requested Authorized [id number] Authorized Patient 01/20/2023 1 1 Preference 2 Outpatient (Routine) - Authorized Specialty Diagnoses / Procedures Referred By Contact Refer red To Contact Diagnoses Tinnitus Bilateral Pain Neck Mechanical Stenosis Spinal Cervical Lilli Hearn M.D. [address] [place] [address] [phone] Referral ID Status Reason Start Expiration Visits Visits Date Date Requested Authorized [id number] Authorized Patient 01/20/2023 1 1 Preference 2 hysical Therapy (Routine) - Authorized Specialty Diagnoses / Procedures Referred By Contact Refer red To Contact Diagnoses Tinnitus Bilateral Pain Neck Mechanical Stenosis Spinal Cervical Lilli Hearn M.D. [address] [place] [address] [phone] Referral ID Status Reason Start Expiration Visits Visits Date Date Requested Authorized [id number] Authorized Patient 01/20/2023 99 99 Preference 2 MRI/CAT/PET Scan (Routine) - Authorized Specialty Diagnoses / Procedures Referred By Contact Refer red To Contact Radiology Diagnoses Cough Unspecified Type Lilli Hearn M.D. [facility] Region Procedures CT Chest without IV Contrast [address] [place] [address] Referral ID Status Reason Start Date Expiration Date Visits V isits Requested Authorized [id number] Authorized 01/20/2022 01/20/2023 1 1 Medication Prior Authorization - Pending Review Specialty Diagnoses / Procedures Referred By Contact Refer red To Contact Lilli Hearn M .D. [address] [place], [place] [phone] Referral ID Status Reason Start Date Expiration Date Visits V isits Requested Authorized [id number] Pending 1 1 Review Reason for Visit Reason Comments Post Ed Visit Follow-up 12/28/21, [facility], Neck pain. MRI and CT spinal Cervical done. Tinnitus Bilateral. Ringing in ears a re more frequent. Anxiety Encounter Details Date Type Department Care Team Description 01/20/2022 Office Visit Department of Family Lilli Hearn T innitus Bilateral (Primary Dx); Medicine in M.D. 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 - 01/20/2022 1:30 PM CDT SUBJECTIVE CHIEF COMPLAINT / REASON FOR VISIT Cristi Macdonald is a 76 y.o. male who presents for evaluation of Post Ed Visit Follow-up ( 12/28/21, [facility], Neck pain. MRI and CT spinal Cervical done. ), Tinnitus (Bilateral. Ringing in ears are more frequent. ), and Anxiety. HISTORY OF PRESENT ILLNESS Patient is here today for several issues. First he needs an ER follow-up. He was seen in the [facility] for neck pain. MRI showed he had significant C3-C4 stenosis with thecal impingement. He was given tramadol for pain and he is now out and he is wondering if he can get some more. He has been trying to do neck stretches and exercises with some relief of the discomfort but he does have chronic daily discomfort. No radicular pain to speak of. No history of recent injury but he has a long history of injuries in the past to his back and neck. He is had spinal surgery 15 years ago. He is also been having chronic tinnitus which seems to be getting worse recently. He denies any hearing issues. Does now have significant issues with recurrent vertigo as well. He would have fairly severe attack of his tinnitus earlier today and he is wondering what options are for that as well today. He is also been having sudden onset of shortness of breath. He thinks it may be panic related but hehas these episodes a couple of times a week that lasts about 15 minutes where he feels like he can not catch his breath and he has some chest pressure. Typically goes away after he sits and rests for awhile. It does not wake him up from sleep. He does sometimes have some claustrophobia from his CPAP machine. He is wondering what he can do and he is feeling anxious and he is having any physical symptoms. He does not smoke he quit at around the age of 52. He is a long history prior to that of both cigarettes and chewing tobacco. Rest of review of systems is negative. No fevers chills. No weight loss. No night sweats. He is chronic intermittent cough but is not productive. He does not wheeze. He has no orthopnea. No palpitations. No chest pain to speak of. He would a stress test done last year that was normal. He denies wheezing. No postnasal drip or sinus congestion. No GERD symptoms or heartburn symptoms or GI distress. No skin rashes. No pain or numbness or tingling in the upper extremities. No changes in bowel or bladderfunction The following portions of the patient's history were reviewed and updated as appropriate: allergies,current medications, medical history, social history, surgical history, and problem list. He lives at home with his . He is still does a lot of his own yd maintenance and gardening. PROBLEM LIST: Patient Active Problem List Diagnosis Morbid Obesity Body Mass Index >= 35 with Comorbid Condition ([facility]) Gastroesophageal Reflux Disease NOS Hypercholesterolemia Obstructive Sleep [...] MOUTH DAILY., Disp: 90 tablet, Rfl: 3 metFORMIN XR [...] (PRAVACHOL) 80 mg tablet, TAKE 1 TABLET BY MOUTH AT BEDTIME., Disp: 90 tablet, Rfl: 3 terazosin (HYTRIN) 1 mg capsule, TAKE 1 CAPSULE BY MOUTH DAILY., Disp: 90 capsule, Rfl: 3 True Metrix Glucose Test Strip strips, 2 (two) times a day. for testing, Disp: , Rfl: TRUEplus Lancets 33 gauge misc, TESTING 2 TIMES A DAY, Disp: , Rfl: hydrOXYzine (ATARAX) 10 mg tablet, Take 1 tablet (10 mg total) by mouth 4 (four) times a day as needed for anxiety., Disp: 30 tablet, Rfl: 0 OBJECTIVE BP 156/80 (BP Location: Left arm, Patient Position: Sitting, Cuff Size: Large) Pulse 83 Wt (!) 142 kg SpO2 95% BMI 45.95 kg/m?? PHYSICAL EXAM General: Patient is in no apparent distress and is alert and oriented. Mood and affect are bright and engaging. Patient is very pleasant and is articulate and a good historian. Elevated BMI is noted HEENT: TMs are clear. Nares are clear. Posterior pharynx clear. Teeth in good repair. No scleral icterus is noted. Pupils equal, round, react to light. Neck: Supple without lymphadenopathy, JVD, carotid bruits or thyromegaly. Lungs: Clear to auscultation bilaterally. Heart: Regular rate and rhythm without murmur. Neuro is intact ASSESSMENT / PLAN #1 Cough Unspecified Type Persistent chronic cough now with intermittent shortness of breath will proceed with CT chest because of his history of tobacco use. - CT Chest without IV Contrast; Future; Expected date: 01/20/2022 #2 Tinnitus Bilateral ENT referral because of his associated vertigo and sudden worsening of his symptoms #3 Pain Neck Mechanical Send him to ortho spine to help determine next steps for his stenosis at C3 with thecal impingement and now chronic pain. #4 Stenosis Spinal Cervical See above #5 Shortness Of Breath Consider Holter. We discussed this today and he would like to wait. He will check for arrhythmias with his blood pressure machine when he is having active symptoms. His blood pressure is elevated todayas well but he does not want to alter his medications. Historically his blood pressure is fairly well controlled in the 130 systolic. He feels that blood pressure is high at this time because he has been under increased stress. I did give him a trial of hydroxyzine to use p.r.n. these attacks he is having as he does think that there panic. He understands that will need to rule out any other pulmonaryor cardiac concerns as a measure of safety before calling his symptoms strictly panic. He is agreeable to the plan as noted above. Other orders - hydrOXYzine (ATARAX) 10 mg tablet; Take 1 tablet (10 mg total) by mouth 4 (four) times a day as needed for anxiety., Starting Chelsie 01/20/2022, Normal - External referral PT (non-Stuart) - External referral physician (non-Stuart) - External referral physician (non-Stuart) documented in this encounter Plan of Treatment Upcoming Encounters Date Type Specialty Care Team Description 02/11/2022 Appointment Laboratory Medicine Neli Hearn M.D. [address] [place] [phone] (Wo rk) 02/14/2022 Office Visit Family Medicine Lilli Hearn M.D. [address] [place] [phone] (Wo rk) Scheduled Orders Name Type Priority Associated Diagnoses Order S chedule CT Chest without Imaging RAD - Routine (most Cough Unspecified Expected: IV Contrast inpatients and all Type outpatients) (Approximate), Expires: 04/22/2023 documented as of this encounter Visit Diagnoses Diagnosis Tinnitus Bilateral - Primary Cough Unspecified Type Pain Neck Mechanical Stenosis Spinal Cervical Shortness Of Breath documented in this encounter Additional Health Concerns Assessment Noted Time PHQ-9 Depression Total Score: 5 01/20/2022 2:12 PM CDT documented as of this encounter Care Teams Commercial Trailer Truck Driver Relationship Specialty Start Date End Date Lilli Hearn M.D. PCP - General Family Medicine 01/20/22 [address] [place] [phone] documented as of this encounter
--- OUTSIDE RECORDS SUMMARY | 2022-01-28 08:52 | XMS_ITS | Encounter Summary ---
:1945 Author Organization [facility] Address [address] [place] [address] Care Team Providers Name Role Phone Yolanda Colón APRN, C.N.P. Primary Care Provider [phone] Encounter Details Date Type Department Care Team Description 12/09/2021 Office Visit Department of Family Lilli Hearn V enous Insufficiency Medicine in M.D. 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 It is significantly decreased in both [...] Laboratory Medicine Neli Hearn M.D. [address] [place] [phone] (Stephon caldera) 02/14/2022 Office Visit Family Medicine Lilli Hearn M.D. [address] [place] [phone] (Stephon caldera) documented as of this encounter Visit Diagnoses Diagnosis Venous Insufficiency Chronic Peripheral - Primary documented in this encounter Additional Health Concerns Assessment Noted Time PHQ-9 Depression Total Score: 4 04/16/2019 10:58 AM CS T documented as of this encounter Care Teams Tissue Inserter Relationship Specialty Start Date End Date Yolanda Colón APRN, C.N.P. PCP - General 09/08/16 01/19/22 documented as of this encounter
--- OUTSIDE RECORDS SUMMARY | 2022-01-28 08:52 | XMS_ITS | Clinical Summary ---
:1945 Author Organization [facility] Address [address] [place] [address] Care Team Providers Name Role Phone Lilli Hearn M.D. Primary Care Provider Source Comments Patient records contain information from all sites at [facility]. For routine questions regarding patient records, call [phone] during business hours, M-F 8:00 AM - 5:00 PM Central Time. Record requests for emergency care only can be directed to [phone] at any time.[facility] Allergies Active Allergy Reactions Severity [...] Additional Information Patient taking differently: As needed, Reported on 12/01/2021 metFORMIN XR Take 1 tablet 90 tablet 3 05/14/2021 05/14/2022 A ctive (GLUCOPHAGE-XR) 500 (500 mg total) mg 24 hr tablet by mouth daily with breakfast. TRUEplus Lancets 33 TESTING 2 TIMES 0 05/07/2021 Active gauge misc A DAY True Metrix Glucose 2 (two) times a 0 05/07/2021 Active Test Strip strips day. for testing losartan (COZAAR) 100 TAKE 1 TABLET BY 90 tablet 3 05/28/2021 Active mg tablet MOUTH DAILY. terazosin (HYTRIN) 1 TAKE 1 CAPSULE 90 capsule 3 05/28/2021 Active mg capsule BY MOUTH DAILY. amLODIPine (NORVASC) Take 1 tablet (5 90 tablet 3 08/11/2021 0 08/11/2022 Active 5 mg tablet mg total) by mouth daily. buPROPion XL Take 1 tablet 90 tablet 3 08/11/2021 08/11/2022 A ctive (WELLBUTRIN XL) 300 (300 mg total) mg 24 hr tablet by mouth every morning. naproxen (NAPROSYN) STATES HE ONLY 90 tablet 1 09/15/2021 Active 500 mg tablet TAKES IT IF HIS BACK HURTS. STATES HE TAKES THIS ABOUT 3-4 TIMES PER WEEK furosemide (LASIX) 20 TAKE 1 TABLET BY 180 tablet 2 10/12/2021 Active mg tablet MOUTH 2 TIMES A DAY. pravastatin TAKE 1 TABLET BY 90 tablet 3 12/31/2021 Active (PRAVACHOL) 80 mg MOUTH AT tablet BEDTIME. hydrOXYzine (ATARAX) Take 1 tablet 30 tablet 0 01/20/2022 Active 10 mg tablet (10 mg total) by mouth 4 (four) times a day as needed for anxiety. pravastatin TAKE 1 TABLET 90 tablet 3 12/22/2020 12/31/2021 Di scontinued (PRAVACHOL) 80 mg (80 MG TOTAL) BY tablet MOUTH AT BEDTIME. meclizine (ANTIVERT) Take 1 tablet 90 tablet 3 09/15/202112/26 Discontinued 25 mg tablet (25 mg total) by mouth 3 (three) times a day as needed for dizziness. traMADoL (ULTRAM) 50 0 12/28/2021 01/21/20 22 Discontinued mg tablet Active Problems Problem Noted Date Morbid Obesity [...] Encounters Date Type Specialty Care Team Description 01/20/2022 Office Visit Family Medicine Lilli Hearn, Tinnit us Bilateral (Primary Dx); M.D. Cough Unspecifi ed Type; Pain Neck Mecha nical; Stenosis Spinal Cervical; Shortness Of Br eath 12/29/2021 Refill Family Medicine Yolanda Colón Refi torey M, ZINC PLATE CUTTER, C.N.P. 12/13/2021 Nurse Only Family Medicine Aleja Damon, L.P.N. 12/09/2021 Office Visit Family Medicine Lilli Hearn, Venous Insufficiency M.D. Chronic Periphe ral (Primary Dx) 12/06/2021 Office Visit Family Medicine Lilli Hearn, Venous Insufficiency Chronic Peripheral (Primary Dx); M.D. Stasis Ulcer Wi th Varicose Vein Left (HCC); Cellulitis 12/03/2021 Office Visit [facility] Lilli Mathias, Venous Insufficiency Chronic Peripheral (Primary Dx); M.D. Stasis Ulcer Wi th Varicose Vein Left (HCC); Cellulitis 12/01/2021 Ancillary Procedure 12/01/2021 Office Visit Family Lilli Mathias, Stasis Ulcer With M.D. Varicose Vein L eft (HCC) (Primary Dx) 11/04/2021 Nurse Triage Family Medicine Izzy Sanchez Abdomin al Pain R.N. from Last 3 Months Immunizations Name Administration [...] or relatives? How often do you attend jainism or 1 to 4 times per year 11/2019 faith services? 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 [address] [place] [address], [place] [phone] (Wo rk) 02/14/2022 Office Visit Family Medicine Lilli Hearn M.D. [address] [place] [address], [place] [phone] (Wo rk) Health Maintenance Due Date Last Done Comments CT Colonography 1945 Cologuard 1945 FIT 1945 COVID-19 Vaccine (4 - 03/25/2021 01/28/2021, 07/08/2020, Booster for Moderna series) 06/10/2020 Influenza Vaccine (#1) 2021 Zoster Vaccines (1 of 2) 02/02/2022 Postpon ed from 10/26/1997 (Terri ent Refused) Hepatitis C Screening 04/20/2022 Postponed from 1945 (Terri ent Refused) Office Visit for Blood 04/22/2022 01/20/2022 Pressure Check / Re-check Creatinine Level 08/09/2022 08/09/2021, 05/05/2021, 12/01/2020, Additional [...] Abdominal Aortic Aneurysm Completed 03/12/2015 (AAA) Screen Fall Risk Screen (Annual) Completed 04/20/2021 Depression Screening Completed 01/20/2022 (Annual PHQ-2) Procedures Procedure Name Priority Date/Time Associated Diagnosis [...] with Differential, Blood (12/01/2021 11:52 AM CDT) [facility] gist Method Time Signature Hemoglobin 12.9 [...] Organization Address City/State/ZIP Code Phon e Number [facility]- [address] [place], [place] [address] [place] [address] [facility] [address] [place] Leg-Family Medicine Image Exam (12/01/2021 11:30 AM [...] Code Phon e Number IIMS IIMS NA from Last 3 Months Insurance Payer Benefit Plan Subscriber ID Effective Phone Address Typ e / Group Dates MEDICARE MEDICARE A [id number] 2012-Pres [address] [place] [address] BLUE CROSS BCBS YUROK [id number] 2016-Pres [phone] PO KYLEE X Cost Share BLUE SHIELD BLUE COST ent [phone] [place] [address] Care Teams Scientific Informatics Project Leader Relationship Specialty Start Date End Date Lilli Hearn M.D. PCP - General Family Medicine 01/20/22 [address] [place] [phone]
--- OUTSIDE RECORDS SUMMARY | 2022-01-28 08:53 | XMS_ITS | Encounter Summary ---
:1945 Author Organization [facility] Address [address] [place] [address] Care Team Providers Name Role Phone Yolanda Colón APRN, C.N.P. Primary Care Provider [phone] Encounter Details Date Type Department Care Team Description 05/05/2021 Orders Only Department of Family Yolanda Colón, Medicine in [facility] AMBER, C. N.P. 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 [address] [place] [phone] (Wo rk) 02/14/2022 Office Visit Family Medicine Lilli Hearn M.D. [address] [place] [phone] (Wo rk) documented as of this encounter Visit Diagnoses Not on filedocumented in this encounter Additional Health Concerns Infection Onset Date Last Indicated Resolved Time COVID19 04/20/2021 04/20/2021 05/10/2021 5:11 AM MANAGER REGULATORY Assessment Noted Time PHQ-9 Depression Total Score: 4 04/16/2019 10:58 AM CS T documented as of this encounter Care Teams Teaching Fellow Relationship Specialty Start Date End Date Yolanda Colón APRN, C.N.P. PCP - General 09/08/16 01/19/22 documented as of this encounter
--- OUTSIDE RECORDS SUMMARY | 2022-01-28 08:53 | XMS_ITS | Encounter Summary ---
:1945 Author Organization [facility] Address [address] [place] [address] Care Team Providers Name Role Phone Yolanda Colón APRN, C.N.P. Primary Care Provider [phone] Reason for Visit Reason Comments Dizziness Nausea Tinnitus Encounter Details Date Type Department Care Team Description 08/24/2021 Nurse Triage Department of Crista Montoya; Nausea; Medicine in A, R.N. Tinnitus (/) [facility] [address] [facility] [address] [place] [phone] Social History Tobacco Use Types Packs/Day Years [...] or relatives? How often do you attend faith or 1 to 4 times per year 11/2019 oriental orthodox services? 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 [address] [place] [phone] (Stephon caldera) 02/14/2022 Office Visit Family Medicine Lilli Hearn M.D. [address] [place] [phone] (Stephon caldera) documented as of this encounter Visit Diagnoses Not on filedocumented in this encounter Additional Health Concerns Assessment Noted Time PHQ-9 Depression Total Score: 4 04/16/2019 10:58 AM CS T documented as of this encounter Care Teams Service Order Clerk Relationship Specialty Start Date End Date Yolanda Colón APRN, C.N.P. PCP - General 09/08/16 01/19/22 documented as of this encounter
--- OUTSIDE RECORDS SUMMARY | 2022-01-28 08:53 | XMS_ITS | Encounter Summary ---
:1945 Author Organization [facility] Address [address] [place] [address] Care Team Providers Name Role Phone Yolanda Colón APRN, C.N.P. Primary Care Provider [phone] Reason for Visit Reason Comments Sore Throat Encounter Details Date Type Department Care Team Description 04/29/2021 Nurse Triage Department of [facility] Saranya Subramanian R.N. 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 Patient was warm transferred to [facility] at the clinic for further assistance. Reason for Disposition ? ? [1] Sore throat with cough/cold symptoms AND [2] present > 5 days Protocols used: SORE HDDLIG-[id number]-GG Care Advice Patient/Caregiver understands and will follow care advice?: Yes, able to teach back SORE THROAT: * Here are some simple things you can do to treat and reduce sore throat pain. * Sip warm chicken broth or apple juice. * Suck on hard candy or an ekad-hdw-kzmharh throat lozenge. * Gargle with warm salt water four times a day. To make salt water, put 1/2 teaspoon of salt in 8 oz(240 ml) of warm water. * Avoid cigarette smoke. PAIN AND FEVER MEDICINES: * For pain or fever relief, take either acetaminophen or ibuprofen. * They are mtub-vkz-ryabuox (OTC) drugs that help treat both fever and pain. [facility] at [facility]. * Treat fevers above 101 F [...] CALL BACK IF: * You become worse. OR SOFTWARE DEVELOPMENT MANAGER documented in this encounter Plan of Treatment Upcoming Encounters Date Type Specialty Care Team Description 02/11/2022 Appointment Laboratory Medicine Neli Hearn M.D. [address] [place] [phone] (Stephon caldera) 02/14/2022 Office Visit Family Medicine Lilli Hearn M.D. [address] [place] [phone] (Stephon caldera) documented as of this encounter Visit Diagnoses Not on filedocumented in this encounter Additional Health Concerns Infection Onset Date Last Indicated Resolved Time COVID19 04/20/2021 04/20/2021 05/10/2021 5:11 AM SENIOR SOFTWARE DEVELOPMENT MANAGER Assessment Noted Time PHQ-9 Depression Total Score: 4 04/16/2019 10:58 AM CS T documented as of this encounter Care Teams Sales Representative Printing Supplies Relationship Specialty Start Date End Date Yolanda Colón APRN, C.N.P. PCP - General 09/08/16 01/19/22 documented as of this encounter
--- OUTSIDE RECORDS SUMMARY | 2022-01-28 08:53 | XMS_ITS | Encounter Summary ---
:1945 Author Organization [facility] Address [address] [place] [address] Care Team Providers Name Role Phone Yolanda Colón APRN C.N.P. Primary Care Provider [phone] Reason for Referral Outpatient (Routine) - Closed Specialty Diagnoses / Procedures Referred By Contact Refer red To Contact Nutrition Diagnoses Diabetes Mellitus Type 2 Hyperglycemia (HCC) Lilli Hearn M.D. [address] [address] Referral ID Status Reason Start Date Expiration Date Visits Requ ested Visits Authorized [id number] Closed 05/07/2021 05/07/2022 1 1 P THER Reason for Visit Reason Comments Follow-up Outpatient (Routine) - Closed Specialty Diagnoses / Procedures Referred By Contact Refer red To Contact Family Medicine Lilli Hearn M .D. [address] [address] Referral ID Status Reason Start Date Expiration Date Visits Requ ested Visits Authorized [id number] Closed 05/05/2021 05/05/2022 1 1 Encounter Details Date Type Department Care Team Description 05/07/2021 Office Visit Department of Lilli Hearn Diabetes Me llitus Type 2 Hyperglycemia (HCC) (Primary Dx); Family Medicine ame Kaplan M.D. Sinusitis Acute; [address] Morbid Obesity Body Mass Index >= 35 wit h Comorbid Condition (HCC); [place], [place] Hypertension And Chronic Kid lemuel Disease Stage 2; [address] [place] [address] Hypercholesterolemia [place], [place] [phone] (Work) [phone] Social History Tobacco Use Types Packs/Day Years [...] 1 to 4 times per year 11/2019 denominational services? Do you belong to any clubs or No 12/04/2019 organizations such as baptism groups, unions, fraternal or athletic groups, or [...] at Date Recorded Male 04/20/2021 3:56 PM OCCUP THER documented as of this encounter Last Filed Vital Signs Vital Sign Reading Time Taken Comments Blood Pressure 141/81 05/07/2021 9:31 AM OCCUP THER Pulse 88 05/07/2021 9:24 AM OCCUP THER Temperature 37.4 ??C (99.3 ??F) 05/07/2021 9:24 AM OCCUP THER Respiratory Rate - - Oxygen Saturation 97% 05/07/2021 9:24 AM OCCUP THER Inhaled Oxygen Concentration - - Weight 152 kg (335 lb) 05/07/2021 9:24 AM OCCUP THER Height 176 cm (5' 9.29) 05/07/2021 9:24 AM OCCUP THER Body Mass Index 49.06 05/07/2021 9:24 AM OCCUP THER documented in this encounter Progress Notes Lilli [...] been told his diabetes. 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 He does have some sleep [...] care and Education about diabetes. Total time xyeh-wv-wcbx was just over 25 minutes with an [...] with Comorbid Condition (HCC) Noted, see orders. 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 [address] [place] [phone] (Stephon caldera) 02/14/2022 Office Visit Family Medicine Lilli Hearn M.D. [address] [place] [phone] (Stephon caldera) Scheduled Referrals Name Type Priority [...] Time COVID19 04/20/2021 04/20/2021 05/10/2021 5:11 AM OCCUP THER Assessment Noted Time PHQ-9 Depression Total Score: 4 04/16/2019 10:58 AM CS T documented as of this encounter Care Teams Audit Control Clerk Relationship Specialty Start Date End Date Yolanda Colón APRN, C.N.P. PCP - General 09/08/16 01/19/22 documented as of this encounter
--- OUTSIDE RECORDS SUMMARY | 2022-01-28 08:53 | XMS_ITS | Encounter Summary ---
:1945 Author Organization [facility] Address [address] [place] [address] Care Team Providers Name Role Phone Yolanda Colón APRN, C.N.P. Primary Care Provider [phone] Encounter Details Date Type Department Care Team Description 09/15/2021 Clinical Communication Department of [facility] Cordell Hearn, Medicine in [facility], [address] 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 - 09/15/2021 2:09 PM CDT Order faxed to [facility]) for MRI Brain per patient request seated open sided MRI. According to [facility] this specific MR is only at [facility] location. Patient stated that he is not interested in driving to [facility]. Patient is wanting to try regular MRI in [place]. Patient states he feels he will be able to lay flat without moving for the MRI. it help desk technician notified and will connect with patient to schedule. He may need to have MRI in [place] due to weight. documented in this encounter Plan of Treatment Upcoming Encounters Date Type Specialty Care Team Description 02/11/2022 Appointment Laboratory Medicine Neli Hearn M.D. [address] [place] [phone] (Wo rk) 02/14/2022 Office Visit Family Medicine Lilli Hearn M.D. [address] [place] [phone] (Wo rk) documented as of this encounter Visit Diagnoses Not on filedocumented in this encounter Additional Health Concerns Assessment Noted Time PHQ-9 Depression Total Score: 4 04/16/2019 10:58 AM CS T documented as of this encounter Care Teams Biodiesel Plant Superintendent Relationship Specialty Start Date End Date Yolanda Colón APRN, C.N.P. PCP - General 09/08/16 01/19/22 documented as of this encounter
--- OUTSIDE RECORDS SUMMARY | 2022-01-28 08:53 | XMS_ITS | Encounter Summary ---
:1945 Author Organization [facility] Address [address] [place] [address] Care Team Providers Name Role Phone Yolanda Colón APRN, C.N.P. Primary Care Provider [phone] Encounter Details Date Type Department Care Team Description 08/09/2021 Hospital Encounter Department of Lilli Hearn endy Elif Kaplan M.D. 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 True Metrix Glucose Test 2 (two) times a day. 0 0 05/07/2021 Strip strips for testing TRUEplus Lancets 33 TESTING 2 TIMES A 0 2 gauge misc DAY amLODIPine (NORVASC) 5 TAKE 1 TABLET BY 90 tablet 0 022 08/11/2021 mg tablet MOUTH DAILY. buPROPion [...] TAKES THIS ABOUT 3-4 TIMES PER WEEK pravastatin (PRAVACHOL) TAKE 1 TABLET (80 MG 90 tablet 3 12/31/2021 80 mg tablet TOTAL) BY MOUTH AT BEDTIME. documented as of this encounter Plan of Treatment Upcoming Encounters Date Type Specialty Care Team Description 02/11/2022 Appointment Laboratory Medicine Neli Hearn M.D. [address] [place] [phone] (Wo rk) 02/14/2022 Office Visit Family Medicine Lilli Hearn M.D. [address] [place] [address] (Wo rk) documented as of this [...] CDT eGFR-Black/Afric 85 >=60 08/09/2021 NPRG an [place] Islander mL/min/BSA 12:44 PM CDT Comment: ----ADDITIONAL INFORMATION---- [...] M.D. LAB BLOOD ADD-ON Performing Organization Address City/[facility] Phon e Number [address] [place] [address] (ABNORMAL) Hemoglobin A1c (08/09/2021 8:32 AM [...] M.D. LAB BLOOD ADD-ON Performing Organization Address City/[facility]/ZIP Code Phon e Number [address] [place] [address] [place] [address] [address] [facility] documented in this encounter Visit Diagnoses Diagnosis Diabetes Mellitus Type 2 Hyperglycemia ( HCC) documented in this encounter Additional Health Concerns Assessment Noted Time PHQ-9 Depression Total Score: 4 04/16/2019 10:58 AM CS T documented as of this encounter Care Teams Sheet Metal Welder Relationship Specialty Start Date End Date Yolanda Colón APRN, C.N.P. PCP - General 09/08/16 01/19/22 documented as of this encounter
--- OUTSIDE RECORDS SUMMARY | 2022-01-28 08:53 | XMS_ITS | Encounter Summary ---
:1945 Author Organization [facility] Address [address] [place] [address] Care Team Providers Name Role Phone Yolanda Colón APRN C.N.P. Primary Care Provider Reason for Referral Outpatient (Routine) - Authorized Specialty Diagnoses / Procedures Referred By Contact Refer red To Contact Nutrition Lilli Hearn M .D. [address] [phone] Referral ID Status Reason Start Date Expiration Date Visits V isits Requested Authorized [id number] Authorized 05/13/2021 05/13/2022 1 1 ICAL NURSING MANAGER Reason for Visit Outpatient (Routine) - Closed Specialty Diagnoses / Procedures Referred By Contact Refer red To Contact Nutrition Diagnoses Diabetes Mellitus Type 2 Hyperglycemia (HCC) Lilli Hearn M.D. [address] [address] Referral ID Status Reason Start Date Expiration Date Visits Requ ested Visits Authorized [id number] Closed 05/07/2021 05/07/2022 1 1 Encounter Details Date Type Department Care Team Description 05/13/2021 Clinical Support Department of Lilli Hearn M.D. 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 3 balanced meals/day; use plate method for meal planning 2. Piece of whole grain toast with breakfast in the am; protein with lunch; okay to starch/grain with dinner - be mindful of portions 3. Incorporate extra steps throughout the day. ICAL NURSING MANAGER documented in this encounter Progress Notes Crystal [...] 1 Encounters: 05/07/21 49.06 kg/m?? Estimated Needs 7877-5558 calories/day (Green Barrett 75% of basal to basal) NUTRITION DIAGNOSIS [...] to call or portal message with questions. ICAL NURSING MANAGER documented in this encounter Plan of Treatment Upcoming Encounters Date Type Specialty Care Team Description 02/11/2022 Appointment Laboratory Medicine Neli Hearn M.D. [address] [place] [phone] (Stephon caldera) 02/14/2022 Office Visit Family Medicine Lilli Hearn M.D. [address] [place] [phone] (Stephon caldera) Scheduled Referrals Name Type Priority [...] documented as of this encounter Care Teams Office Technologist Relationship Specialty Start Date End Date Yolanda Colón APRN, C.N.P. PCP - General 09/08/16 01/19/22 documented as of this encounter
--- OUTSIDE RECORDS SUMMARY | 2022-01-28 08:53 | XMS_ITS | Encounter Summary ---
:1945 Author Organization [facility] Address [address] [place] [address] Care Team Providers Name Role Phone Yolanda Colón APRN, C.N.P. Primary Care Provider [phone] Encounter Details Date Type Department Care Team Description 04/21/2021 Orders Only Department of Family Yolanda Colón, Medicine in [facility] AMBER, C. N.P. 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 PCP - General 09/08/16 01/19/22 documented as of this encounter
--- OUTSIDE RECORDS SUMMARY | 2022-01-28 08:53 | XMS_ITS | Encounter Summary ---
:1945 Author Organization [facility] Address [address] [place] [address] Care Team Providers Name Role Phone Yolanda Colón APRN C.N.PFamilia Primary Care Provider [phone] Reason for Referral Outpatient (Routine) - Closed Specialty Diagnoses / Procedures Referred By Contact Refer red To Contact Family Medicine Lilli Hearn M .D. [facility] [address] [place] [address] Referral ID Status Reason Start Date Expiration Date Visits Requ ested Visits Authorized [id number] Closed 05/14/2021 05/14/2022 1 1 R ENGINEER Reason for Visit Reason Comments Follow-up Encounter Details Date Type Department Care Team Description 05/14/2021 Office Visit Department of Family Lilli Hearn D iabetes Mellitus Type 2 Hyperglycemia (HCC) (Primary Dx); Medicine in [place] Morbid Obesity Body Mass Index >= 35 wit h Comorbid Condition (HCC); [address] Hypertension And Chronic Kidney Disease Stage 2 [place], [place] [address] [address] [place], [place] [phone] (Wo rk) [address] [phone] Social History Tobacco Use Types Packs/Day Years [...] at Date Recorded Male 04/20/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 documented as of this encounter Last Filed Vital Signs Vital Sign Reading Time Taken Comments Blood Pressure 134/78 05/14/2021 9:13 AM RADAR ENGINEER Pulse 92 05/14/2021 9:13 AM RADAR ENGINEER Temperature 36.8 ??C (98.3 ??F) 05/14/2021 9:13 AM RADAR ENGINEER Respiratory Rate - - Oxygen Saturation 96% 05/14/2021 9:13 AM RADAR ENGINEER Inhaled Oxygen Concentration - - Weight 148 kg (326 lb) 05/14/2021 9:13 AM RADAR ENGINEER Height 176 cm (5' 9.29) 05/14/2021 9:13 AM RADAR ENGINEER Body Mass Index 47.74 05/14/2021 9:13 AM RADAR ENGINEER documented in this encounter Progress Notes Lilli [...] sugars are reviewed and Education is completed. Whih-qe-lbgo time with patient was 30 minutes with [...] office visit (clinic); Future; Expected date: 08/11/2021 R ENGINEER documented in this encounter Plan of Treatment Upcoming Encounters Date Type Specialty Care Team Description 02/11/2022 Appointment Laboratory Medicine Neli Hearn M.D. [address] [place] [phone] (Stephon caldera) 02/14/2022 Office Visit Family Medicine Lilli Hearn M.D. [address] [place] [phone] (Stephon caldera) Scheduled Referrals Name Type Priority Associated Diagnoses Order [facility] Family Medicine Outpatient Referral Routine Expec deidre: [...] CDT eGFR-Black/Afric 85 >=60 08/09/2021 NPRG an [place] mL/min/BSA 12:44 PM CDT Comment: ----ADDITIONAL INFORMATION---- [...] Organization Address City/State/ZIP Code Phon e Number [facility]- [address] [place], [place] [address] [place] [address] [place] [address] (ABNORMAL) Hemoglobin [...] Organization Address City/State/ZIP Code Phon e Number [facility]- [address] [place], [place] [address] [address] [place] [address] documented in [...] as of this encounter Care Teams Machine Fastener Relationship Specialty Start Date End Date Yolanda Colón APRN, C.N.P. PCP - General 09/08/16 01/19/22 documented as of this encounter
--- OUTSIDE RECORDS SUMMARY | 2022-01-28 08:53 | XMS_ITS | Encounter Summary ---
:1945 Author Organization [facility] Address [address] [place] [address] Care Team Providers Name Role Phone Yolanda Colón APRN, C.N.P. 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 - 05/07/2021 3:38 PM DRAW MACHINE OPERATOR Pt notified and all questions answered MACHINE OPERATOR Telephone Encounter - Jennifer Baxter - 05/07/2021 2:49 PM CST The patient called to ask if nurse Aleja can call him at [phone]. He has questions about how to do something, and said that Aleja would understand what he was referring to. Thank you. MACHINE OPERATOR documented in this encounter Plan of Treatment Upcoming Encounters Date Type Specialty Care Team Description 02/11/2022 Appointment Laboratory Medicine Neli Hearn M.D. [address] [place] [phone] (Stephon caldera) 02/14/2022 Office Visit Family Medicine Lilli Hearn M.D. [address] [place] [phone] (Stephon caldera) documented as of this encounter Visit Diagnoses Not on filedocumented in this encounter Additional Health Concerns Infection Onset Date Last Indicated Resolved Time COVID19 04/20/2021 04/20/2021 05/10/2021 5:11 AM DRAW MACHINE OPERATOR Assessment Noted Time PHQ-9 Depression Total Score: 4 04/16/2019 10:58 AM CS T documented as of this encounter Care Teams Clay Worker Relationship Specialty Start Date End Date Yolanda Colón, STREET LIGHT SERVICER SUPERVISOR, C.N.P. PCP - General 09/08/16 01/19/22 documented as of this encounter
--- OUTSIDE RECORDS SUMMARY | 2022-01-28 08:53 | XMS_ITS | Encounter Summary ---
:1945 Author Organization [facility] Address [address] [place] [address] Care Team Providers Name Role Phone Yolanda Colón APRN, C.N.P. Primary Care Provider [phone] Reason for Visit Reason Comments Follow-up Vertigo/ no better if not wo rse Appointment Request (Routine) - Closed Specialty Diagnoses / Procedures Referred By Contact Refer red To Contact Family Medicine Referral ID Status Reason Start Date Expiration Date Visits Requ ested Visits Authorized [id number] Closed 08/25/2021 08/25/2022 1 1 Encounter Details Date Type Department Care Team Description 08/25/2021 Office Visit Department of Family Lilli Hearn V ertigo (Primary Dx) Medicine in [facility] [address] [facility] [address] [place] [phone] Social History Tobacco Use Types Packs/Day Years [...] at Date Recorded Male 04/20/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 [address] [place] [phone] (Wo verenice) 02/14/2022 Office Visit Family Medicine Lilli Hearn M.D. [address] [place] [phone] (Wo rk) documented as of this encounter Visit Diagnoses Diagnosis Vertigo - Primary documented in this encounter Additional Health Concerns Assessment Noted Time PHQ-9 Depression Total Score: 4 04/16/2019 10:58 AM CS T documented as of this encounter Care Teams Professor Of Mathematics Relationship Specialty Start Date End Date Yolanda Colón APRN, C.N.P. PCP - General 09/08/16 01/19/22 documented as of this encounter
--- OUTSIDE RECORDS SUMMARY | 2022-01-28 08:53 | XMS_ITS | Encounter Summary ---
:1945 Author Organization [facility] Address [address] [place] [address] Care Team Providers Name Role Phone Yolanda Colón APRN C.N.P. Primary Care Provider [phone] Reason for Referral Outpatient (Routine) - Closed Specialty Diagnoses / Procedures Referred By Contact Refer red To Contact Family Medicine Lilli Hearn M .D. [facility] [address] [place] [address] Referral ID Status Reason Start Date Expiration Date Visits Requ ested Visits Authorized [id number] Closed 05/05/2021 05/05/2022 1 1 UTIVE RELATIONS SPECIALIST Reason for Visit Reason Comments Sore Throat Since having covid19 Shortness of Breath Chest discomfort Appointment Request (Routine) - Closed Specialty Diagnoses / Procedures Referred By Contact Refer red To Contact Family Medicine Referral ID Status Reason Start Date Expiration Date Visits Requ ested Visits Authorized [id number] Closed 05/03/2021 05/03/2022 1 1 Encounter Details Date Type Department Care Team Description 05/05/2021 Office Visit Department of Family Lilli Hearn S inusitis Acute (Primary Dx); Medicine in M.D. Shortness Of Breath; Terri Michael a [address] [facility]; [address] [place], [place] Obstructive [place] [phone] [phone] Social History Tobacco Use Types Packs/Day Years [...] 1 to 4 times per year 11/2019 confucianist services? 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 documented as of this encounter Last Filed Vital Signs Vital Sign Reading Time Taken Comments Blood Pressure 155/85 05/05/2021 8:26 AM EXECUTIVE RELATIONS SPECIALIST Pulse 85 05/05/2021 8:26 AM EXECUTIVE RELATIONS SPECIALIST Temperature 37.1 ??C (98.8 ??F) 05/05/2021 8:26 AM EXECUTIVE RELATIONS SPECIALIST Respiratory Rate 20 05/05/2021 8:26 AM EXECUTIVE RELATIONS SPECIALIST Oxygen Saturation 99% 05/05/2021 8:26 AM EXECUTIVE RELATIONS SPECIALIST Inhaled Oxygen Concentration - - Weight 154 kg (338 lb 11.2 oz) 05/05/2021 8:26 AM EXECUTIVE RELATIONS SPECIALIST Height 176 cm (5' 9.29) 05/05/2021 8:26 AM EXECUTIVE RELATIONS SPECIALIST Body Mass Index 49.6 05/05/2021 8:26 AM EXECUTIVE RELATIONS SPECIALIST documented in this encounter Progress Notes Lilli [...] blood/lymph issues: Yes No urinary/reproductive issues: Yes UTIVE RELATIONS SPECIALIST documented in this encounter Miscellaneous Notes Result Encounter Note - Lilli Hearn M.D. - 05/07/2021 11:25 AM EXECUTIVE RELATIONS SPECIALIST Called patient and notified of results. UTIVE RELATIONS SPECIALIST documented in this encounter Plan of Treatment Upcoming Encounters Date Type Specialty Care Team Description 02/11/2022 Appointment Laboratory Medicine Neli Hearn M.D. [address] [place] [phone] (Wo rk) 02/14/2022 Office Visit Family Medicine Lilli Hearn M.D. [address] [place] [phone] (Wo rk) Scheduled Referrals Name Type Priority Associated Diagnoses Order [facility] Family Medicine Outpatient Referral Routine Expec deidre: office visit 05/07/2021 (clinic) (Approximate), Expires: 08/02/2022 documented as of this encounter Procedures Procedure Name Priority Date/Time Associated Diagnosis Comme nts CBC WITH Routine 05/05/2021 9:28 AM Sinusitis Acu te Results for this DIFFERENTIAL, B EXECUTIVE RELATIONS SPECIALIST Shortness Of Breath proce dure are in the results section. HEMOGLOBIN A1C, B Routine 05/05/2021 9:28 AM Hyperglycemia Res ults for this EXECUTIVE RELATIONS SPECIALIST procedure are i n the results section. BASIC METABOLIC Routine 05/05/2021 9:28 AM Sinusitis Acu te Results for this PANEL, S/P EXECUTIVE RELATIONS SPECIALIST Shortness Of Breath procedur e are in the results section. documented in this encounter Results (ABNORMAL) Hemoglobin A1c (05/05/2021 9:28 AM EXECUTIVE RELATIONS SPECIALIST) Analysis Performed At Patho logist Time Signature Hemoglobin A1c, 11.1 (H) 4.2 - 5.6 05/05/2021 NPRG B % 2:27 PM EXECUTIVE RELATIONS SPECIALIST Comment: Hemoglobin A1c values greater than or eq ual to 6.5 percent are diagnostic for diabetes mellitus. ?? Diagnosis should be confirmed by repeat testing. ??In diabet ic patients, HbA1c goals should be discussed with healthcar e provider. Specimen Anatomical Collection Method Collection Time Receive d Time (Source) Location / / Volume Laterality Blood (Blood, 05/05/2021 9:28 AM 05/05/19 22 1:38 Venous) EXECUTIVE RELATIONS SPECIALIST PM EXECUTIVE RELATIONS SPECIALIST Lilli Hearn M.D. LAB BLOOD ADD-ON Performing Organization Address City/State/ZIP Code Phon e Number [facility]- [address] [place], [place] [address] [place] [address] CBC with Differential, Blood (05/05/2021 9:28 AM EXECUTIVE RELATIONS SPECIALIST) P athologist Signature Hemoglobin 13.8 13.2 - 05/05/2021 NPR[facility] 16.6 g/dL 12:08 PM EXECUTIVE RELATIONS SPECIALIST Hematocrit 41.3 38.3 - 05/05/2021 NPR[facility] 48.6 % 12:08 PM EXECUTIVE RELATIONS SPECIALIST Erythrocytes 4.51 4.35 - 05/05/2021 NPR[facility] 5.65 12:08 PM EXECUTIVE RELATIONS SPECIALIST x10(12)/L MCV 91.6 78.2 - 05/05/2021 NPR[facility] 97.9 fL 12:08 PM EXECUTIVE RELATIONS SPECIALIST RBC Distrib Width 13.0 11.8 - 05/05/2021 NPR[facility] 14.5 % 12:08 PM EXECUTIVE RELATIONS SPECIALIST Platelet Count 271 135 - 317 05/05/2021 NPR[facility] x10(9)/L 12:08 PM EXECUTIVE RELATIONS SPECIALIST Leukocytes 7.0 3.4 - 9.6 05/05/2021 NPRG x10(9)/L 12:08 PM EXECUTIVE RELATIONS SPECIALIST Neutrophils 3.86 1.56 - 05/05/2021 NPRG 6.45 12:08 PM EXECUTIVE RELATIONS SPECIALIST x10(9)/L Lymphocytes 2.41 0.95 - 05/05/2021 NPRG 3.07 12:08 PM EXECUTIVE RELATIONS SPECIALIST x10(9)/L Monocytes 0.53 0.26 - 05/05/2021 NPRG 0.81 12:08 PM EXECUTIVE RELATIONS SPECIALIST x10(9)/L Eosinophils 0.13 0.03 - 05/05/2021 NPRG 0.48 12:08 PM EXECUTIVE RELATIONS SPECIALIST x10(9)/L Basophils 0.04 0.01 - 05/05/2021 NPRG 0.08 12:08 PM EXECUTIVE RELATIONS SPECIALIST x10(9)/L Specimen Anatomical Collection Method Collection Time Receive d Time (Source) Location / / Volume Laterality Blood (Blood, 05/05/2021 9:28 AM 05/05/19 22 Venous) EXECUTIVE RELATIONS SPECIALIST 11:39 AM EXECUTIVE RELATIONS SPECIALIST Lilli Hearn M.D. LAB BLOOD ADD-ON Performing Organization Address City/State/ZIP Code Phon e Number [facility]- [address] [place] [address] [facility] [place] [address] (ABNORMAL) Basic Metabolic Panel (05/05/2021 9:28 AM EXECUTIVE RELATIONS SPECIALIST) P athologist Signature Potassium, P 3.9 3.6 - 5.2 05/05/2021 NPRG mmol/L 12:16 PM EXECUTIVE RELATIONS SPECIALIST Sodium, P 135 135 - 145 05/05/2021 NPRG mmol/L 12:16 PM EXECUTIVE RELATIONS SPECIALIST Chloride, P 99 98 - 107 05/05/2021 NPRG mmol/L 12:16 PM EXECUTIVE RELATIONS SPECIALIST Bicarbonate, P 27 22 - 29 05/05/2021 NPRG mmol/L 12:16 PM EXECUTIVE RELATIONS SPECIALIST Anion Gap, P 9 7 - 15 05/05/2021 NPRG 12:16 PM EXECUTIVE RELATIONS SPECIALIST BUN (Blood Urea 13 8 - 24 05/05/2021 NPRG Nitrogen), P mg/dL 12:16 PM EXECUTIVE RELATIONS SPECIALIST Creatinine 0.95 0.74 - 05/05/2021 NPRG 1.35 mg/dL 12:16 PM EXECUTIVE RELATIONS SPECIALIST eGFR-Black/Afric >90 >=60 05/05/2021 NPR[facility] an Kenyan mL/min/BSA 12:16 PM EXECUTIVE RELATIONS SPECIALIST Comment: ----ADDITIONAL INFORMATION---- Estimated GFR calculated using the 2009 CKD_EPI creatinine equation. eGFR Non-Black/ 79 >=60 mL/min/BSA 05/05/2021 12:16 PM EXECUTIVE RELATIONS SPECIALIST NPRG Comment: ----ADDITIONAL INFORMATION---- Estimated GFR calculated using the 2009 CKD_EPI creatinine equation. Calcium, Total, P 9.6 8.8 - 10.2 mg/dL 05/05/2021 12:1 6 PM EXECUTIVE RELATIONS SPECIALIST NPRG Glucose, P 303 (H) 70 - 140 mg/dL 05/05/2021 12:16 PM EXECUTIVE RELATIONS SPECIALIST NPRG Specimen Anatomical Collection Method Collection Time Receive d Time (Source) Location / / Volume Laterality Blood (Blood, 05/05/2021 9:28 AM 05/05/19 22 Venous) EXECUTIVE RELATIONS SPECIALIST 11:39 AM EXECUTIVE RELATIONS SPECIALIST Lilli Hearn M.D. LAB BLOOD ADD-ON Performing Organization Address City/State/ZIP Code Phon e Number [facility]- [address] [place] [address] [address] [place] [address] documented in this encounter Visit Diagnoses Diagnosis Sinusitis Acute - Primary Shortness Of Breath Hyperglycemia Obstructive Sleep Apnea Adult documented in this encounter Additional Health Concerns Infection Onset Date Last Indicated Resolved Time COVID19 04/20/2021 04/20/2021 05/10/2021 5:11 AM EXECUTIVE RELATIONS SPECIALIST Assessment Noted Time PHQ-9 Depression Total Score: 4 04/16/2019 10:58 AM CS T documented as of this encounter Care Teams Protective Services Officer Relationship Specialty Start Date End Date Yolanda Colón APRN, C.N.P. PCP - General 09/08/16 01/19/22 documented as of this encounter
--- OUTSIDE RECORDS SUMMARY | 2022-01-28 08:53 | XMS_ITS | Encounter Summary ---
:[address] [facility] Address [address] [place] [address] Care Team Providers Name Role Phone Yolanda Colón APRN, C.N.P. Primary Care Provider [phone] Reason for Visit Reason Comments Med Refill Encounter Details Date Type Department Care Team Description 05/27/2021 Refill Department of Family Medicine Yolanda Colón APRN, Med Refill in [facility] lela C.N.P. 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 - 05/27/2021 12:14 PM CST Last office visit 05/14/2021 Dr Hearn Blood pressure 134/78 Future appt 08/[address] Hearn CONTROL/ANTI AIR WARFARE OFFICER documented in this encounter Plan of Treatment Upcoming Encounters Date Type Specialty Care Team Description 02/11/2022 Appointment Laboratory Medicine Neli Hearn M.D. [address] [place] [phone] (Wo rk) 02/14/2022 Office Visit Family Medicine Lilli Hearn M.D. [address] [place] [phone] (Wo rk) documented as of this encounter Visit Diagnoses Not on filedocumented in this encounter Additional Health Concerns Assessment Noted Time PHQ-9 Depression Total Score: 4 04/16/2019 10:58 AM CS T documented as of this encounter Care Teams Donor Services Specialist Relationship Specialty Start Date End Date Yolanda Colón APRN, C.N.P. PCP - General 09/08/16 01/19/22 documented as of this encounter
--- OUTSIDE RECORDS SUMMARY | 2022-01-28 08:53 | XMS_ITS | Encounter Summary ---
:1945 Author Organization [facility] Address [address] [place] [address] Care Team Providers Name Role Phone Yolanda Colón APRN, C.N.P. Primary Care Provider [phone] Reason for Visit MRI/CAT/PET Scan (Routine) - Closed Specialty Diagnoses / Procedures Referred By Contact Refer red To Contact Radiology Diagnoses Vertigo Lilli Hearn M.D. [facility] Region Procedures MR Brain without IV Contrast PA MRI BRAIN WO CNTRST HC MRI BRAIN WO CNTRST [address] [place], [place] [phone] Referral ID Status Reason Start Date Expiration Date Visits Requ ested Visits Authorized [id number] Closed 09/15/2021 09/15/2022 1 1 Encounter Details Date Type Department Care Team Description 09/17/2021 Ancillary Procedure Department of Lilli Hearn V ertigo Radiology, 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 [address] [place] [phone] (Wo rk) 02/14/2022 Office Visit Family Medicine Lilli Hearn M.D. [address] [place] [phone] (Wo verenice) documented as of this encounter [...] Modality Head, Brain, Neuroradiology RST LOS, Neuroradiology SHIVAZ N/A Magnetic Resonance LOS, Neuroradiology FLA [facility] Specimen (Source) Anatomical Collection Method Collection Time [...] documented as of this encounter Care Teams Tap Grinder Relationship Specialty Start Date End Date Yolanda Colón APRN, C.N.P. PCP - General 09/08/16 01/19/22 documented as of this encounter
--- OUTSIDE RECORDS SUMMARY | 2022-01-28 08:53 | XMS_ITS | Encounter Summary ---
:1945 Author Organization [facility] Address [address] [place] [address] Care Team Providers Name Role Phone Yolanda Colón APRN, C.N.P. Primary Care Provider Reason for Referral MRI/CAT/PET Scan (Routine) - Closed Specialty Diagnoses / Procedures Referred By Contact Refer red To Contact Radiology Diagnoses Vertigo Lilli Hearn M.D. [facility] Procedures MR Brain without IV Contrast GA MRI BRAIN WO CNTRST HC MRI BRAIN WO CNTRST [address] [place], [place] [phone] Referral ID Status Reason Start Date Expiration Date Visits Requ ested Visits Authorized [id number] Closed 09/15/2021 09/15/2022 1 1 hysical Therapy (Routine) - Authorized Specialty Diagnoses / Procedures Referred By Contact Refer red To Contact Physical Therapy Diagnoses Vertigo Lilli Hearn M.D. [address] [place] [address] Referral ID Status Reason Start Expiration Visits Visits Date Date Requested Authorized [id number] Authorized Patient 09/15/2021 09/15/2022 99 99 Preference Reason for Visit Reason Comments Vertigo Encounter Details Date Type Department Care Team Description 09/15/2021 Office Visit Department of Family Lilli Hearn V ertigo (Primary Dx) Medicine in [place] Alexisannel Terri omalley [address] [facility] [address] 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 - 09/15/2021 8:00 AM CDT SUBJECTIVE [...] He would like to go outside of [facility] for physical therapy if possible and so I did provide an order for him to go [facility] which is where he would like to [...] agreeable that plan. - External referral PT (non-[place]) - MR Brain without IV Contrast; Future; [...] Laboratory Medicine Neli Hearn M.D. [address] [place] [facility] [phone] (Stephon rk) 02/14/2022 Office Visit Family Medicine Lilli Hearn M.D. [address] [place] [facility] [phone] (Wo rk) documented as of this encounter [...] documented as of this encounter Care Teams Radiographer Mammographer Relationship Specialty Start Date End Date Yolanda Colón APRN, C.N.P. PCP - General 09/08/16 01/19/22 documented as of this encounter
--- OUTSIDE RECORDS SUMMARY | 2022-01-28 08:53 | XMS_ITS | Encounter Summary ---
:1945 Author Organization [facility] Address [address] [place] [address] Care Team Providers Name Role Phone Yolanda Colón APRN, C.N.P. Primary Care Provider [phone] Encounter Details Date Type Department Care Team Description 04/22/2021 Orders Only Department of Family Yolanda Colón, Medicine in [facility] AMBER, C. N.P. 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 [address] [place] [phone] (Wo rk) 02/14/2022 Office Visit Family Medicine Lilli Hearn M.D. [address] [place] [phone] (Wo rk) documented as of this encounter Visit Diagnoses Not on filedocumented in this encounter Additional Health Concerns Infection Onset Date Last Indicated Resolved Time COVID19 Pending 04/20/2021 04/20/2021 04/22/2021 8:28 AM POST PARTUM NURSE COVID19 04/20/2021 04/20/2021 05/10/2021 5:11 AM POST PARTUM NURSE Assessment Noted Time PHQ-9 Depression Total Score: 4 04/16/2019 10:58 AM CS T documented as of this encounter Care Teams Mathematics Teacher Relationship Specialty Start Date End Date Yolanda Colón APRN, C.N.P. PCP - General 09/08/16 01/19/22 documented as of this encounter
--- OUTSIDE RECORDS SUMMARY | 2022-01-28 08:53 | XMS_ITS | Encounter Summary ---
:1945 Author Organization [facility] Address [address] [place] [address] Care Team Providers Name Role Phone Yolanda Colón APRN, C.N.P. Primary Care Provider [phone] Reason for Visit Reason Comments Med Refill Encounter Details Date Type Department Care Team Description 09/13/2021 Refill Department of Family Medicine Yolanda Colón APRN, Med Refill in [facility] lela C.N.P. 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 [facility] 08/11/21 Office Visit Lilli Hearn M.D. [facility] 05/14/21 Office Visit Lilli Hearn M.D. [facility] 05/07/21 Office Visit Lilli Hearn M.D. [facility] 05/05/21 Office Visit Lilli Hearn M.D. [facility] 04/20/21 Office Visit Yolanda Colón APRN, C.N.P. [facility] 12/01/20 Office Visit Yolanda Colón APRN, C.N.P. [facility] Showing recent visits within past 365 days with a meds authorizing provider and meeting all other requirements Today's Visits Date Type Provider Dept 09/15/21 Office Visit Lilli Hearn M.D. [facility] Showing today's visits with a [...] Appointment Laboratory Medicine Neli Hearn M.D. [address] [place] [phone] (Wo rk) 02/14/2022 Office Visit Family Medicine Lilli Hearn M.D. [address] [place] [phone] (Wo rk) documented as of this encounter Visit Diagnoses Not on filedocumented in this encounter Additional Health Concerns Assessment Noted Time PHQ-9 Depression Total Score: 4 04/16/2019 10:58 AM CS T documented as of this encounter Care Teams Black Topper Relationship Specialty Start Date End Date Yolanda Colón APRN, C.N.P. PCP - General 09/08/16 01/19/22 documented as of this encounter
--- OUTSIDE RECORDS SUMMARY | 2022-01-28 08:53 | XMS_ITS | Encounter Summary ---
:1945 Author Organization [facility] Address [address] [place] [address] Care Team Providers Name Role Phone Yolanda Colón APRN, C.N.P. Primary Care Provider [phone] Reason for Visit Reason Comments Sore Throat Feels perfectly fine, except sore throat. Positive Covid. Gargling lost some bloody mucous Encounter Details Date Type Department Care Team Description 04/23/2021 Office Visit Urgent Care, [facility], Sor e Throat (Primary [place], in [place], AMBER, C.N.P., Dx) [place] D.N.P. 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 documented as of this encounter Last Filed Vital Signs Vital Sign Reading Time Taken Comments Blood Pressure 156/82 04/23/2021 5:17 PM CONTINUITY CLERK Pulse 89 04/23/2021 5:17 PM CONTINUITY CLERK Temperature 37 ??C (98.6 ??F) 04/23/2021 5:17 PM CONTINUITY CLERK Respiratory Rate - - Oxygen Saturation 95% 04/23/2021 5:17 PM CONTINUITY CLERK Inhaled Oxygen Concentration - - Weight 154 kg (340 lb) 04/23/2021 5:17 PM CONTINUITY CLERK Height 176 cm (5' 9.29) 04/23/2021 5:17 PM CONTINUITY CLERK Body Mass Index 49.79 04/23/2021 5:17 PM CONTINUITY CLERK documented in this encounter Patient Instructions Patient [...] or coughing. ?? Use an alcohol-based hand tongsman if washing your hands with soap and [...] [facility] ([facility]). All rights reserved. [id number] INUITY CLERK documented in this encounter Progress Notes Mikhail Nguyen APRN, C.N.Ryne., D.N.P. - 04/23/2021 5:15 PM CST SUBJECTIVE [...] Electronically signed by: Mikhail Nguyen APRN, C.N.PFamilia, Suresh.N.P. 04/23/21 7:09 PM CONTINUITY CLERK INUITY CLERK documented in this encounter Plan of Treatment Upcoming Encounters Date Type Specialty Care Team Description 02/11/2022 Appointment Laboratory Medicine Neli Hearn M.D. [address] [place] [phone] (Wo rk) 02/14/2022 Office Visit Family Medicine Lilli Hearn M.D. [address] [place] [phone] (Wo rk) documented as of this encounter Procedures Procedure Name Priority Date/Time Associated Diagnosis Comme nts STREP GROUP A, PCR, Routine 04/23/2021 7:02 PM Re sults for this POCT CONTINUITY CLERK procedure are i n the results section. STREP GROUP A, PCR, Routine 04/23/2021 6:49 PM Re sults for this POCT CONTINUITY CLERK procedure are i n the results section. STREP GROUP A, PCR, Routine 04/23/2021 5:45 PM Sore Throat Re sults for this POCT CONTINUITY CLERK procedure are i n the results section. documented in this encounter Results Strep Group A, PCR, Point of Care (04/23/2021 7:02 PM CONTINUITY CLERK) P athologist Signature Strep Group A, Negative Negative 04/23/2021 NPRG PCR, POCT 7:02 PM CONTINUITY CLERK Specimen Anatomical Collection Method Collection Time Receive d Time (Source) Location / / Volume Laterality Varies 04/23/2021 7:02 PM 2 7:17 CONTINUITY CLERK PM CONTINUITY CLERK Generic [facility] POCT ORDERABLES - DEVICE Performing Organization Address City/[facility]/ZIP Code Phon e Number [place] [address] [address] [place], [place] [address] [facility] [place] [id number] Strep Group A, PCR, Point of Care (04/23/2021 6:49 PM CONTINUITY CLERK) P athologist Signature Strep Group A, Negative Negative 04/23/2021 NPRG PCR, POCT 6:49 PM CONTINUITY CLERK Specimen Anatomical Collection Method Collection Time Receive d Time (Source) Location / / Volume Laterality Varies 04/23/2021 6:49 PM 2 7:04 CONTINUITY CLERK PM CONTINUITY CLERK Generic [facility] POCT ORDERABLES - DEVICE Performing Organization Address City/[facility]/ZIP Code Phon e Number [address] [address] [place] [address] Strep Group A, PCR, Point of Care (04/23/2021 5:45 PM CONTINUITY CLERK) Analysis Performed At Patho logist Time Signature Strep Group A, Collected DEFAULT 04/23/2021 NPRG PCR, POCT 6:47 PM CONTINUITY CLERK Specimen Anatomical Collection Method Collection Time Receive d Time (Source) Location / / Volume Laterality Varies (Throat) 04/23/2021 5:45 PM 2021 6:47 CONTINUITY CLERK PM CONTINUITY CLERK Nakul Blevins APRN.N.P., D.N.P. LAB POCT ORDERABLES - DEVICE Performing Organization Address City/State/ZIP Code Phon e Number [address] [address] [place] [address] documented in this encounter Visit Diagnoses Diagnosis Sore Throat - Primary documented in this encounter Additional Health Concerns Infection Onset Date Last Indicated Resolved Time COVID19 04/20/2021 04/20/2021 05/10/2021 5:11 AM CONTINUITY CLERK Assessment Noted Time PHQ-9 Depression Total Score: 4 04/16/2019 10:58 AM CS T documented as of this encounter Care Teams E Learning Developer Relationship Specialty Start Date End Date Yolanda Cloón APRN, C.N.P. PCP - General 09/08/16 01/19/22 documented as of this encounter
--- OUTSIDE RECORDS SUMMARY | 2022-01-28 08:53 | XMS_ITS | Encounter Summary ---
:1945 Author Organization [facility] Address [address] [place] [address] Care Team Providers Name Role Phone Yolanda Colón APRN, C.N.P. 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 - 04/22/2021 8:08 PM CST [facility] TELEPHONE COMMUNICATION NOTE REGARDING COVID-19 Mixer Blender: None History of Present Illness Mr. Macdonald [...] the isolation and quarantine requirements outlined [facility]. All isolation periods are [...] judgement and MWCCT workflow Lacho Sorto M.D. [place] COVID Care Team [facility] and [facility] COVID-19 GENERAL INFORMATION If patient develops mild [...] months, Fever >= 100.4F (send to ED) 2-12 months, Fever >=101 (notify provider) Hypothermia (notify provider or send to ED) Inconsolable (notify provider or send to ED) Apnea (notify provider or send to ED) Dehydration </= 3 wet diapers in 24 hours (notify provider or send to ED) Isolation and Quarantine Recommendations On 03/22/21 [facility] updated isolation and quarantine guidance. https://www.cdc.gov/media/releases/o7215-pipsrpiym-iyzbnledht-abqtdxfo.html [facility] is reviewing CDC recommendations and will update [facility]'s policies and recommendations in the near future. Current [place] recommendations: Any household member who is not fully vaccinated, should be tested 3-5 days after their last close contact. They need to quarantine for 5 days after last close contact and continue to wear a mask for 5days after their quarantine is completed. Please call the [facility] COVID Triage Line at [phone] to schedule these appointments. Any household family [...] be tested for COVID-19. Please call the [facility] COVID Triage Line at [phone] to schedule these appointments. ??? If the [...] members/close contacts become unwell, recommend calling the [facility] COVID Triage Line at [phone]. If symptoms are severe, report to local [...] including those who received the MAb infusion. [place] will be offeringinfluenza vaccination appointments this fall, [...] which time the patient may return to [facility] for on site appointments. [email or web address]/clinical-answers/[email or web address] 47756 SARS-CoV-2 RNA by PCR Date Value Ref Range Status 04/20/2021 Detected (A) Undetected Final Comment: SARS-CoV-2 RNA present. ----ADDITIONAL INFORMATION---- This RT-PCR test using the carolyne SARS-CoV-2 assay ([employer] performed on the carolyne 6800/8800 System has received Emergency Use Authorization (EUA) by the U.S. Food and Drug Administration, and is modified from the patient relations liaison's instructions with a bridging study. Performance characteristics were verified by [facility] in a manner consistent with CLIA requirements. Fact sheets for this Emergency Use Authorization (EUA) assay can be found at the following links: For Healthcare Providers: https://www.fda.gov/media/486737/download For Patients: https://www.fda.gov/media/787693/download ER GRINDER documented in this encounter Plan of Treatment Upcoming Encounters Date Type Specialty Care Team Description 02/11/2022 Appointment Laboratory Medicine Neli Hearn M.D. [address] [place] [phone] (Wo rk) 02/14/2022 Office Visit Family Medicine Lilli Hearn M.D. [address] [place] [phone] (Wo rk) documented as of this encounter Visit Diagnoses Diagnosis COVID-19 Infection - Primary documented in this encounter Additional Health Concerns Infection Onset Date Last Indicated Resolved Time COVID19 Pending 04/20/2021 04/20/2021 04/22/2021 8:28 AM RUBBER GRINDER COVID19 04/20/2021 04/20/2021 05/10/2021 5:11 AM RUBBER GRINDER Assessment Noted Time PHQ-9 Depression Total Score: 4 04/16/2019 10:58 AM CS T documented as of this encounter Care Teams Park Ranger Relationship Specialty Start Date End Date Yolanda Colón APRN, C.N.P. PCP - General 09/08/16 01/19/22 documented as of this encounter
--- OUTSIDE RECORDS SUMMARY | 2022-01-28 08:53 | XMS_ITS | Encounter Summary ---
:1945 Author Organization [facility] Address [address] [place] [address] Care Team Providers Name Role Phone Yolanda Colón APRN, C.N.P. Primary Care Provider Reason for Referral Specialty Diagnoses / Procedures Referred By Contact Refer red To Contact Yolanda Colón APRN, C.N.P. [facility] Region [address] [place] [address] Referral ID Status Reason Start Date Expiration Date Visits Requ ested Visits Authorized Encounter Details Date Type Department Care Team Description 08/10/2021 Orders Only [facility] Yolanda Colón APRN, C.N.P. 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 [address] [place] [phone] (Wo rk) 02/14/2022 Office Visit Family Medicine Lilli Hearn M.D. [address] [place] [phone] (Wo rk) Scheduled Referrals Name Type Priority Associated Order Schedule Diagnoses Covid immunization Outpatient Referral Routine Ex pected: office visit Booster 022 (Approximate), Expires: 08/10/2022 documented as of this encounter Visit Diagnoses Not on filedocumented in this encounter Additional Health Concerns Assessment Noted Time PHQ-9 Depression Total Score: 4 04/16/2019 10:58 AM CS T documented as of this encounter Care Teams Cable Technician Relationship Specialty Start Date End Date Yolanda Colón APRN, C.N.P. PCP - General 09/08/16 01/19/22 documented as of this encounter
--- OUTSIDE RECORDS SUMMARY | 2022-01-28 08:53 | XMS_ITS | Encounter Summary ---
:1945 Author Organization [facility] Address [address] [place] [address] Care Team Providers Name Role Phone Yolanda Colón APRN, C.N.P. Primary Care Provider [phone] Reason for Visit Reason Comments Med Refill Encounter Details Date Type Department Care Team Description 10/11/2021 Refill Department of Family Medicine Yolanda Colón APRN, Med Refill in [facility] lela C.N.P. 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 [facility] 08/25/21 Office Visit Lilli Hearn M.D. [facility] 08/11/21 Office Visit Lilli Hearn M.D. [facility] 05/14/21 Office Visit Lilli Hearn M.D. [facility] 05/07/21 Office Visit Lilli Hearn M.D. [facility] 05/05/21 Office Visit Lilli Hearn M.D. [facility] 04/20/21 Office Visit Yolanda Colón APRN, C.N.P. [facility] 12/01/20 Office Visit Yolanda Colón APRN, C.N.P. [facility] Showing recent visits within [...] 02/11/2022 Appointment Laboratory Medicine Neli Hearn M.D. [address] [place] [phone] (Wo rk) 02/14/2022 Office Visit Family Medicine Lilli Hearn M.D. [address] [place] [phone] (Wo rk) documented as of this encounter Visit Diagnoses Not on filedocumented in this encounter Additional Health Concerns Assessment Noted Time PHQ-9 Depression Total Score: 4 04/16/2019 10:58 AM CS T documented as of this encounter Care Teams Brick Veneer Maker Relationship Specialty Start Date End Date Yolanda Colón APRN, C.N.P. PCP - General 09/08/16 01/19/22 documented as of this encounter
--- OUTSIDE RECORDS SUMMARY | 2022-01-28 08:53 | XMS_ITS | Encounter Summary ---
:1945 Author Organization [facility] Address [address] [place] [address] Care Team Providers Name Role Phone Yolanda Colón APRN, C.N.P. Primary Care Provider [phone] Encounter Details Date Type Department Care Team Description 04/23/2021 Clinical Communication Department of Yolanda Craven APRN, C.N.PFamilia [facility] a [address] [place] [phone] Social History Tobacco Use Types Packs/Day Years [...] or relatives? How often do you attend rastafari or 1 to 4 times per year 11/2019 catholic services? 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 He had no further questions. GER SUPPORT SERVICES Telephone Encounter - Jennifer Baxter - 04/23/2021 3:40 PM CST The patient has been coughing up bloody mucus. He would like to talk with Adelina Colón or a nurse about this. He refused to be transferred to the [facility] line. He would like a call back [facility] at [phone]. Thank you. GER SUPPORT SERVICES documented in this encounter Plan of Treatment Upcoming Encounters Date Type Specialty Care Team Description 02/11/2022 Appointment Laboratory Medicine Neli Hearn M.D. [address] [place] [facility] [phone] (Stephon caldera) 02/14/2022 Office Visit Family Medicine Lilli Hearn M.D. [address] [place] [facility] [phone] (Stephon caldera) documented as of this encounter Visit Diagnoses Not on filedocumented in this encounter Additional Health Concerns Infection Onset Date Last Indicated Resolved Time COVID19 04/20/2021 04/20/2021 05/10/2021 5:11 AM MANAGER SUPPORT SERVICES Assessment Noted Time PHQ-9 Depression Total Score: 4 04/16/2019 10:58 AM CS T documented as of this encounter Care Teams Pediatric Neurologist Relationship Specialty Start Date End Date Yolanda Colón APRN, C.N.P. PCP - General 09/08/16 01/19/22 documented as of this encounter
--- OUTSIDE RECORDS SUMMARY | 2022-01-28 08:53 | XMS_ITS | Encounter Summary ---
:1945 Author Organization [facility] Address [address] [place] [address] Care Team Providers Name Role Phone Yolanda Colón APRN C.N.PFamilia Primary Care Provider [phone] Reason for Referral Outpatient (Routine) - Authorized Specialty Diagnoses / Procedures Referred By Contact Refer red To Contact Family Medicine Lilli Hearn M .D. [address] [phone] Referral ID Status Reason Start Date Expiration Date Visits V isits Requested Authorized [id number] Authorized 08/11/2021 08/11/2022 1 1 Reason for Visit Reason Comments Diabetes States no concerns Outpatient (Routine) - Closed Specialty Diagnoses / Procedures Referred By Contact Refer red To Contact Family Lilli Mathias M .D. 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 Total time [id number] with patient was over 30 minutes. Additional [...] Laboratory Medicine Neli Hearn M.D. [address] [place] [phone] (Stephon caldera) 02/14/2022 Office Visit Family Medicine Lilli Hearn M.D. [address] [place] [phone] (Stephon caldera) Scheduled Orders Name [...] Name Type Priority Associated Diagnoses Order [facility] Family Medicine Outpatient Referral Routine Expec [...] documented as of this encounter Care Teams Change Management Lead Relationship Specialty Start Date End Date Yolanda Colón APRN, C.N.P. PCP - General 09/08/16 01/19/22 documented as of this encounter
--- OUTSIDE RECORDS SUMMARY | 2022-01-28 08:53 | XMS_ITS | Encounter Summary ---
:1945 Author Organization [facility] Address [address] [place] [address] Care Team Providers Name Role Phone Yolanda Colón APRN, C.N.P. Primary Care Provider [phone] Reason for Visit Reason Comments Med Refill Encounter Details Date Type Department Care Team Description 06/07/2021 Refill Department of Family Medicine Yolanda Colón APRN, Med Refill in [facility] lela C.N.P. 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 [address] [place] [phone] (Wo rk) 02/14/2022 Office Visit Family Medicine Lilli Hearn M.D. [address] [place] [phone] (Wo rk) documented as of this encounter Visit Diagnoses Not on filedocumented in this encounter Additional Health Concerns Assessment Noted Time PHQ-9 Depression Total Score: 4 04/16/2019 10:58 AM CS T documented as of this encounter Care Teams Network Communications Engineer Relationship Specialty Start Date End Date Yolanda Colón APRN, C.N.P. PCP - General 09/08/16 01/19/22 documented as of this encounter
--- OUTSIDE RECORDS SUMMARY | 2022-01-28 08:53 | XMS_ITS | Encounter Summary ---
:1945 Author Organization [facility] Address [address] [place] [address] Care Team Providers Name Role Phone Yolanda Colón APRN, C.N.P. 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 - 04/22/2021 10:56 AM VENDING TECHNICIAN Patient notified and verbalizes understanding. ING TECHNICIAN Telephone Encounter - Yolanda Colón APRN, C.N.P. - 04/22/2021 10:31 AM VENDING TECHNICIAN Please notify patient that his COVID test [...] he should go directly to the ED. ING TECHNICIAN Telephone Encounter - Katy Molina L.P.N. - 04/22/2021 10:08 AM VENDING TECHNICIAN Please advise. ING TECHNICIAN Telephone Encounter - Jennifer Baxter - 04/22/2021 8:55 AM CST The patient would like a call back [facility] at [phone]. He says the medication Yolanda Colón prescribed for him for his sore throat isn't working, and he is desperate to try something else to help with his sore throat, which has worsened. Thank you. ING TECHNICIAN documented in this encounter Plan of Treatment Upcoming Encounters Date Type Specialty Care Team Description 02/11/2022 Appointment Laboratory Medicine Neli Hearn M.D. [address] [place] [phone] (Wo rk) 02/14/2022 Office Visit Family Medicine Lilli Hearn M.D. [address] [place] [phone] (Wo rk) documented as of this encounter Visit Diagnoses Not on filedocumented in this encounter Additional Health Concerns Infection Onset Date Last Indicated Resolved Time COVID19 Pending 04/20/2021 04/20/2021 04/22/2021 8:28 AM VENDING TECHNICIAN COVID19 04/20/2021 04/20/2021 05/10/2021 5:11 AM VENDING TECHNICIAN Assessment Noted Time PHQ-9 Depression Total Score: 4 04/16/2019 10:58 AM CS T documented as of this encounter Care Teams Mechanical Technician Relationship Specialty Start Date End Date Yolanda Colón APRN, C.N.P. PCP - General 09/08/16 01/19/22 documented as of this encounter
--- OUTSIDE RECORDS SUMMARY | 2022-01-28 08:53 | XMS_ITS | Encounter Summary ---
:1945 Author Organization [facility] Address [address] [place] [address] Care Team Providers Name Role Phone Yolanda Colón APRN, C.N.P. Primary Care Provider Reason for Visit Reason Comments Communication Vertigo Encounter Details Date Type Department Care Team Description 09/14/2021 Clinical Communication Department of Lavon Colón Family Medicine in Yolanda Hart, (Vertigo) AMBER Michael, C.N.P. 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 [address] [place] [phone] (Wo rk) 02/14/2022 Office Visit Family Medicine Lilli Hearn M.D. [address] [place] [phone] (Wo rk) documented as of this encounter Visit Diagnoses Not on filedocumented in this encounter Additional Health Concerns Assessment Noted Time PHQ-9 Depression Total Score: 4 04/16/2019 10:58 AM CS T documented as of this encounter Care Teams Military Technology Specialist Relationship Specialty Start Date End Date Yolanda Colón APRN, C.N.P. PCP - General 09/08/16 01/19/22 documented as of this encounter
--- OUTSIDE RECORDS SUMMARY | 2022-01-28 08:54 | XMS_ITS | Encounter Summary ---
:1945 Author Organization [facility] Address [address] [place] [address] Care Team Providers Name Role Phone Yolanda Colón APRN, C.N.P. Primary Care Provider [phone] Encounter Details Date Type Department Care Team Description 12/11/2020 Hospital Encounter Department of Rebekah Colón For Laboratory Medicine Yolanda Hart APRN, Therap [facility] [place], C.N.P. 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 [address] [facility] [place] [phone] (Wo rk) 02/14/2022 Office Visit Family Medicine Lilli Hearn M.D. [address] [place] [phone] (Wo rk) documented as of this encounter Visit Diagnoses Diagnosis Monitoring For Therapeutic Drug Therapy documented in this encounter Additional Health Concerns Assessment Noted Time PHQ-9 Depression Total Score: 4 04/16/2019 10:58 AM CS T documented as of this encounter Care Teams Blanket Winder Helper Relationship Specialty Start Date End Date Yolanda Colón APRN, C.N.P. PCP - General 09/08/16 01/19/22 documented as of this encounter
--- OUTSIDE RECORDS SUMMARY | 2022-01-28 08:54 | XMS_ITS | Encounter Summary ---
:1945 Author Organization [facility] Address [address] [place] [address] Care Team Providers Name Role Phone Yolanda Colón APRN, C.N.P. Primary Care Provider [phone] Encounter Details Date Type Department Care Team Description 10/12/2020 Orders Only [facility] Yolanda Colón onitoring For AMBER Hart, C.N.P. 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 [address] [place] [phone] (Wo rk) 02/14/2022 Office Visit Family Medicine Lilli Hearn M.D. [address] [place] [phone] (Wo rk) documented as of this encounter Visit Diagnoses Diagnosis Monitoring For Therapeutic Drug Therapy documented in this encounter Additional Health Concerns Assessment Noted Time PHQ-9 Depression Total Score: 4 04/16/2019 10:58 AM CS T documented as of this encounter Care Teams Delivery Director Relationship Specialty Start Date End Date Yolanda Colón APRN, C.N.P. PCP - General 09/08/16 01/19/22 documented as of this encounter
--- OUTSIDE RECORDS SUMMARY | 2022-01-28 08:54 | XMS_ITS | Encounter Summary ---
:1945 Author Organization [facility] Address [address] [place] [address] Care Team Providers Name Role Phone Yolanda Colón APRN, C.N.P. Primary Care Provider [phone] Reason for Visit Reason Comments Back Pain Encounter Details Date Type Department Care Team Description 08/26/2020 Clinical Communication Department of Yolanda Craven Back Pain Medicine in AMBER Hart, C.N.PFamilia [facility] [address] [place] [phone] Social History Tobacco Use Types Packs/Day Years [...] or relatives? How often do you attend anabaptism or 1 to 4 times per year 11/2019 pentecostal services? 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 Thank you for calling [facility]. documented in this encounter Plan of Treatment Upcoming Encounters Date Type Specialty Care Team Description 02/11/2022 Appointment Laboratory Medicine Neli Hearn M.D. [address] [place] [phone] (Wo rk) 02/14/2022 Office Visit Family Medicine Lilli Hearn M.D. [address] [place] [phone] (Wo rk) documented as of this encounter Visit Diagnoses Not on filedocumented in this encounter Additional Health Concerns Assessment Noted Time PHQ-9 Depression Total Score: 4 04/16/2019 10:58 AM CS T documented as of this encounter Care Teams Art Therapy Certified Supervisor Relationship Specialty Start Date End Date Yolanda Colón, AMBER, C.N.P. PCP - General 09/08/16 01/19/22 documented as of this encounter
--- OUTSIDE RECORDS SUMMARY | 2022-01-28 08:54 | XMS_ITS | Encounter Summary ---
:1945 Author Organization [facility] Address [address] [place] [address] Care Team Providers Name Role Phone Yolanda Colón APRN, C.N.P. Primary Care Provider [phone] Reason for Visit Reason Comments Med Refill Encounter Details Date Type Department Care Team Description 05/29/2020 Refill Department of Family Medicine Yolanda Colón APRN, Med Refill in [facility] lela C.N.P. 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 [address] [place] [phone] (Wo rk) 02/14/2022 Office Visit Family Medicine Lilli Hearn M.D. [address] [place] [phone] (Wo rk) documented as of this encounter Visit Diagnoses Not on filedocumented in this encounter Additional Health Concerns Assessment Noted Time PHQ-9 Depression Total Score: 4 04/16/2019 10:58 AM CS T documented as of this encounter Care Teams Wash House Supervisor Relationship Specialty Start Date End Date Yoladna Colón APRN, C.N.P. PCP - General 09/08/16 01/19/22 documented as of this encounter
--- OUTSIDE RECORDS SUMMARY | 2022-01-28 08:54 | XMS_ITS | Encounter Summary ---
:1945 Author Organization [facility] Address [address] [place] [address] Care Team Providers Name Role Phone Yolanda Colón APRN, C.N.P. Primary Care Provider [phone] Reason for Visit Reason Comments Med Refill Encounter Details Date Type Department Care Team Description 05/08/2020 Refill Department of Family Medicine Yolanda Colón APRN, Med Refill in [facility] lela C.N.P. 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 - 05/08/2020 10:34 AM SLAG PRODUCTION WORKER Medications Needing Refill: naproxen 500 mg tab take 1-2 tabs daily Last Refilled: 04/16/19 Last Appointment: 01/14/20 Future Appointment: no future office visits scheduled Medications Needing Refill: Spironolactone 50 mg take 1 tab PO daily Last Refilled: 03/28/20 PRODUCTION WORKER documented in this encounter Plan of Treatment Upcoming Encounters Date Type Specialty Care Team Description 02/11/2022 Appointment Laboratory Medicine Neli Hearn M.D. [address] [place] [phone] (Wo rk) 02/14/2022 Office Visit Family Medicine Lilli Hearn M.D. [address] [place] [phone] (Wo rk) documented as of this encounter Visit Diagnoses Not on filedocumented in this encounter Additional Health Concerns Assessment Noted Time PHQ-9 Depression Total Score: 4 04/16/2019 10:58 AM CS T documented as of this encounter Care Teams Java Web Architect Relationship Specialty Start Date End Date Yolanda Colón APRN, C.N.P. PCP - General 09/08/16 01/19/22 documented as of this encounter
--- OUTSIDE RECORDS SUMMARY | 2022-01-28 08:54 | XMS_ITS | Encounter Summary ---
:1945 Author Organization [facility] Address [address] [place] [address] Care Team Providers Name Role Phone Yolanda Colón APRN, C.N.P. Primary Care Provider Encounter Details Date Type Department Care Team Description 01/28/2021 Immunization Department of [facility] Lon Nicolas Nee d Vaccine Medicine in D.O. Immunization (Primary 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 [address] [place] [phone] (Wo rk) 02/14/2022 Office Visit Family Medicine Lilli Hearn M.D. [address] [place] [address] (Wo rk) documented as of this encounter Visit Diagnoses Diagnosis Need Vaccine Immunization - Primary documented in this encounter Additional Health Concerns Assessment Noted Time PHQ-9 Depression Total Score: 4 04/16/2019 10:58 AM CS T documented as of this encounter Care Teams Forming Machine Upkeep Mechanic Helper Relationship Specialty Start Date End Date Yolanda Colón APRN, C.N.P. PCP - General 09/08/16 01/19/22 documented as of this encounter
--- OUTSIDE RECORDS SUMMARY | 2022-01-28 08:54 | XMS_ITS | Encounter Summary ---
:1945 Author Organization [facility] Address [address] [place] [address] Care Team Providers Name Role Phone Yolanda Colón APRN, C.N.P. Primary Care Provider [phone] Encounter Details Date Type Department Care Team Description 01/05/2021 Orders Only Department of Family Yolanda Colón, Medicine in [facility] AMBER, C. N.P. 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 [address] [place] [address] (Wo rk) 02/14/2022 Office Visit Family Medicine Lilli Hearn M.D. [address] [place] [address] (Wo rk) documented as of this encounter Visit Diagnoses Not on filedocumented in this encounter Additional Health Concerns Assessment Noted Time PHQ-9 Depression Total Score: 4 04/16/2019 10:58 AM CS T documented as of this encounter Care Teams Ships Or Barges Loader Relationship Specialty Start Date End Date Yolanda Colón APRN, C.N.P. PCP - General 09/08/16 01/19/22 documented as of this encounter
--- OUTSIDE RECORDS SUMMARY | 2022-01-28 08:54 | XMS_ITS | Encounter Summary ---
:1945 Author Organization [facility] Address [address] [place] [address] Care Team Providers Name Role Phone Yolanda Colón APRN, C.N.P. Primary Care Provider [phone] Reason for Referral Specialty Diagnoses / Procedures Referred By Contact Refer red To Contact [facility] Enoc wilcox [facility] Region [address] [place] [address] Referral ID Status Reason Start Date Expiration Date Visits Requ ested Visits Authorized Encounter Details Date Type Department Care Team Description 06/10/2020 Immunization Department of [facility] [place] [facility] Immun[facility] [place], [place] [address] Fritz Piña (Primary Dx) [address] [place] [phone] Social History Tobacco Use Types Packs/Day Years [...] or relatives? How often do you attend spiritism or 1 to 4 times per year 11/2019 sikh services? Do you belong to any clubs or No 12/04/2019 organizations such as spiritism groups, unions, fraHumagade or athletic groups, or school groups? 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 [address] [place] [phone] (Wo rk) 02/14/2022 Office Visit Family Medicine Lilli Hearn M.D. [address] [place] [phone] (Wo rk) Scheduled Referrals Name Type Priority [...] documented as of this encounter Care Teams It Help Desk Technician Relationship Specialty Start Date End Date Yolanda Colón APRN, C.N.P. PCP - General 09/08/16 01/19/22 documented as of this encounter
--- OUTSIDE RECORDS SUMMARY | 2022-01-28 08:54 | XMS_ITS | Encounter Summary ---
:1945 Author Organization [facility] Address [address] [place] [address] Care Team Providers Name Role Phone Yolanda Colón APRN, C.N.P. Primary Care Provider [phone] Reason for Visit Reason Comments Med Refill Encounter Details Date Type Department Care Team Description 02/14/2021 Refill Department of Family Medicine Yolanda Colón APRN, Med Refill in [facility] lela C.N.P. 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 - 02/15/2021 3:45 PM COMPONENT LAB TECH Name of Medication(s) Needing Refill: METOLAZONE 5MG Additional Information: Last refill: 01/05/21 Last Appointment: 12-01-20 Future Appointment: None at this time ONENT LAB TECH documented in this encounter Plan of Treatment Upcoming Encounters Date Type Specialty Care Team Description 02/11/2022 Appointment Laboratory Medicine Neli Hearn M.D. [address] [place] [phone] (Wo rk) 02/14/2022 Office Visit Family Medicine Lilli Hearn M.D. [address] [place] [phone] (Wo rk) documented as of this encounter Visit Diagnoses Not on filedocumented in this encounter Additional Health Concerns Assessment Noted Time PHQ-9 Depression Total Score: 4 04/16/2019 10:58 AM CS T documented as of this encounter Care Teams Ross Furnace Operator Relationship Specialty Start Date End Date Yolanda Colón APRN, C.N.P. PCP - General 09/08/16 01/19/22 documented as of this encounter
--- OUTSIDE RECORDS SUMMARY | 2022-01-28 08:54 | XMS_ITS | Encounter Summary ---
:1945 Author Organization [facility] Address [address] [place] [address] Care Team Providers Name Role Phone Yolanda Colón APRN, C.N.P. Primary Care Provider [phone] Reason for Visit Reason Comments Med Refill Encounter Details Date Type Department Care Team Description 12/21/2020 Refill Department of Family Medicine Yolanda Colón APRN, Med Refill in [facility] lela C.N.P. 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 [address] [place] [phone] (Wo rk) 02/14/2022 Office Visit Family Medicine Lilli Hearn M.D. [address] [place] [phone] (Wo rk) documented as of this encounter Visit Diagnoses Not on filedocumented in this encounter Additional Health Concerns Assessment Noted Time PHQ-9 Depression Total Score: 4 04/16/2019 10:58 AM CS T documented as of this encounter Care Teams Rehabilitation Medicine Physician Relationship Specialty Start Date End Date Yolanda Colón APRN, C.N.P. PCP - General 09/08/16 01/19/22 documented as of this encounter
--- OUTSIDE RECORDS SUMMARY | 2022-01-28 08:54 | XMS_ITS | Encounter Summary ---
:1945 Author Organization [facility] Address [address] [place] [address] Care Team Providers Name Role Phone Yolanda Colón APRN, C.N.P. Primary Care Provider [phone] Reason for Referral Specialty Diagnoses / Procedures Referred By Contact Refer red To Contact Jessica Sandhu M.D. [facility] Region [address] [place], [place] [address] Referral ID Status Reason Start Date Expiration Date Visits Requ ested Visits Authorized Encounter Details Date Type Department Care Team Description 01/19/2021 Orders Only [facility] PCP TH Andrew Cornejo D.O. 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 [address] [place] [phone] (Wo rk) 02/14/2022 Office Visit Family Medicine Lilli Hearn M.D. [address] [place] [phone] (Wo rk) Scheduled Referrals Name Type Priority Associated Order Schedule Diagnoses Covid immunization Outpatient Referral Routine Ex pected: office visit Booster 021 (Approximate), Expires: 01/19/2022 documented as of this encounter Visit Diagnoses Not on filedocumented in this encounter Additional Health Concerns Assessment Noted Time PHQ-9 Depression Total Score: 4 04/16/2019 10:58 AM CS T documented as of this encounter Care Teams Research Hydraulic Engineer Relationship Specialty Start Date End Date Yolanda Colón APRN, C.N.P. PCP - General 09/08/16 01/19/22 documented as of this encounter
--- OUTSIDE RECORDS SUMMARY | 2022-01-28 08:54 | XMS_ITS | Encounter Summary ---
:1945 Author Organization [facility] Address [address] [place] [address] Care Team Providers Name Role Phone Yolanda Colón APRN, C.N.P. Primary Care Provider [phone] Reason for Referral Outpatient (Routine) - Closed Specialty Diagnoses / Procedures Referred By Contact Refer red To Contact Diagnoses Morbid Obesity (HCC) Shortness Of Breath Abnormal Electrocardiogram Yolanda Colón [facility] Region Procedures NM Cardiac Perfusion Rest and Stress SPECT INTERVENTIONAL PHYSICIAN, C.N.P. [address] [place] [address] Referral ID Status Reason Start Date Expiration Date Visits Requ ested Visits Authorized [id number] Closed 12/01/2020 12/01/2021 6 6 Reason for Visit Outpatient (Routine) - Closed Specialty Diagnoses / Procedures Referred By Contact Refer red To Contact Diagnoses Morbid Obesity (HCC) Shortness Of Breath Abnormal Electrocardiogram Yolanda Colón [facility] Region Procedures NM Cardiac Perfusion Rest and Stress SPECT AMBER, C.N.P. [address] [place] [address] Referral ID Status Reason Start Date Expiration Date Visits Requ ested Visits Authorized [id number] Closed 12/01/2020 12/01/2021 6 6 Encounter Details Date Type Department Care Team Description 12/15/2020 Hospital Encounter Department of Ari Colón (HCC); Radiology in Cristy Iraheta f Breath; [place], [place] INTERVENTIONAL PHYSICIAN, C.N.P. 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 [address] [place] [phone] (Stephon caldera) 02/14/2022 Office Visit Family Medicine Lilli Hearn M.D. [address] [place] [phone] (Stephon caldera) documented as of this encounter [...] MC CV MERGE MC CV MERGE NA documented in this encounter [...] documented as of this encounter Care Teams Game Warden Relationship Specialty Start Date End Date Yolanda Colón APRN, C.N.P. PCP - General 09/08/16 01/19/22 documented as of this encounter
--- OUTSIDE RECORDS SUMMARY | 2022-01-28 08:54 | XMS_ITS | Encounter Summary ---
:1945 Author Organization [facility] Address [address] [place] [address] Care Team Providers Name Role Phone Yolanda Colón APRN, C.N.P. 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 700 [place] [address] (Wo rk) 02/14/2022 Office Visit Family Medicine Lilli Haern M.D. [address] [facility] [place] [address] (Wo rk) documented as of this encounter Visit Diagnoses Not on filedocumented in this encounter Additional Health Concerns Assessment Noted Time PHQ-9 Depression Total Score: 4 04/16/2019 10:58 AM CS T documented as of this encounter Care Teams Loss Prevention Analyst Relationship Specialty Start Date End Date Yolanda Colón APRN, C.N.P. PCP - General 09/08/16 01/19/22 documented as of this encounter
--- OUTSIDE RECORDS SUMMARY | 2022-01-28 08:54 | XMS_ITS | Encounter Summary ---
:1945 Author Organization [facility] Address [address] [place] [address] Care Team Providers Name Role Phone Yolanda Colón APRN, C.N.P. Primary Care Provider [phone] Encounter Details Date Type Department Care Team Description 01/05/2021 Orders Only Department of Family Yolanda Colón, Medicine in [facility] AMBER, C. N.P. 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 [address] [place] [address] (Wo rk) 02/14/2022 Office Visit Family Medicine Lilli Hearn M.D. [address] [place] [address] (Wo rk) documented as of this encounter Visit Diagnoses Not on filedocumented in this encounter Additional Health Concerns Assessment Noted Time PHQ-9 Depression Total Score: 4 04/16/2019 10:58 AM CS T documented as of this encounter Care Teams Army Manager Relationship Specialty Start Date End Date Yolanda Colón APRN, C.N.P. PCP - General 09/08/16 01/19/22 documented as of this encounter
--- OUTSIDE RECORDS SUMMARY | 2022-01-28 08:54 | XMS_ITS | Encounter Summary ---
:1945 Author Organization [facility] Address [address] [place] [address] Care Team Providers Name Role Phone Yolanda Colón APRN, C.N.P. Primary Care Provider [phone] Reason for Visit Reason Comments Med Refill Encounter Details Date Type Department Care Team Description 07/06/2020 Refill Department of Family Medicine Yolanda Colón APRN, Med Refill in [facility] lela C.N.P. 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 [address] [place] [phone] (Wo rk) 02/14/2022 Office Visit Family Medicine Lilli Hearn M.D. [address] [place] [phone] (Wo rk) documented as of this encounter Visit Diagnoses Not on filedocumented in this encounter Additional Health Concerns Assessment Noted Time PHQ-9 Depression Total Score: 4 04/16/2019 10:58 AM CS T documented as of this encounter Care Teams Scale Clerk Relationship Specialty Start Date End Date Yolanda Colón APRN, C.N.P. PCP - General 09/08/16 01/19/22 documented as of this encounter
--- OUTSIDE RECORDS SUMMARY | 2022-01-28 08:54 | XMS_ITS | Encounter Summary ---
:1945 Author Organization [facility] Address [address] [place] [address] Care Team Providers Name Role Phone Yolanda Colón APRN, C.N.P. 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 [address] [place] [phone] (Wo rk) 02/14/2022 Office Visit Family Medicine Lilli Hearn M.D. [address] [place] [phone] (Wo rk) documented as of this encounter Visit Diagnoses Diagnosis Encounter For COVID-19 Vaccine Immunizat ion documented in this encounter Additional Health Concerns Assessment Noted Time PHQ-9 Depression Total Score: 4 04/16/2019 10:58 AM CS T documented as of this encounter Care Teams Computer Operations Specialist Relationship Specialty Start Date End Date Yolanda Colón APRN, C.N.P. PCP - General 09/08/16 01/19/22 documented as of this encounter
--- OUTSIDE RECORDS SUMMARY | 2022-01-28 08:54 | XMS_ITS | Encounter Summary ---
:1945 Author Organization [facility] Address [address] [place] [address] Care Team Providers Name Role Phone Yolanda Colón APRN, C.N.P. Primary Care Provider [phone] Reason for Visit Outpatient (Routine) - Closed Specialty Diagnoses / Procedures Referred By Contact Refer red To Contact Diagnoses Morbid Obesity (HCC) Shortness Of Breath Abnormal Electrocardiogram Yolanda Colón, [facility] Region Procedures NM Cardiac Perfusion Rest and Stress SPECT AMBER C.N.PFamilia [address] [place] [address] Referral ID Status Reason Start Date Expiration Date Visits Requ ested Visits Authorized [id number] Closed 12/01/2020 12/01/2021 6 6 Encounter Details Date Type Department Care Team Description 12/29/2020 Hospital Encounter Department of Yolanda Colón Cardiovascular Diseases in YIN Hart RN, C.N.PFamilia [place] [facility] [address] [place], [place] [phone] Social History Tobacco Use Types Packs/Day [...] No 12/04/2019 organizations such as taoist groups, [employer], [email or web address] or athletic groups, or school groups? 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 terazosin (HYTRIN) TAKE 1 CAPSULE (1 MG 90 capsule 3 021 05/27/2021 1 mg capsule TOTAL) BY MOUTH DAILY. documented as of this encounter Plan of Treatment Upcoming Encounters Date Type Specialty Care Team Description 02/11/2022 Appointment Laboratory Medicine Neli Hearn M.D. [address] [place] [address] (Stephon caldera) 02/14/2022 Office Visit Family Medicine Lilli Hearn M.D. [address] [place] [address] (Stephon caldera) documented as of [...] documented as of this encounter Care Teams Car Storer Relationship Specialty Start Date End Date Yolanda Colón APRN, C.N.P. PCP - General 09/08/16 01/19/22 documented as of this encounter
--- OUTSIDE RECORDS SUMMARY | 2022-01-28 08:54 | XMS_ITS | Encounter Summary ---
:1945 Author Organization [facility] Address [address] [place] [address] Care Team Providers Name Role Phone Yolanda Colón APRN, C.N.P. Primary Care Provider [phone] Reason for Visit Reason Comments Med Refill Encounter Details Date Type Department Care Team Description 08/28/2020 Refill Department of Family Medicine Yolanda Colón APRN, Med Refill in [facility] lela C.N.P. 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 - 08/28/2020 9:19 AM CDT Last office visit 01/14/2020 Adelina Colón documented in this encounter Plan of Treatment Upcoming Encounters Date Type Specialty Care Team Description 02/11/2022 Appointment Laboratory Medicine Neli Hearn M.D. [address] [place] [address] (Wo rk) 02/14/2022 Office Visit Family Medicine Lilli Hearn M.D. [address] [place] [phone] (Wo rk) documented as of this encounter Visit Diagnoses Not on filedocumented in this encounter Additional Health Concerns Assessment Noted Time PHQ-9 Depression Total Score: 4 04/16/2019 10:58 AM CS T documented as of this encounter Care Teams Senior Ux Developer Relationship Specialty Start Date End Date Yolanda Colón APRN, C.N.P. PCP - General 09/08/16 01/19/22 documented as of this encounter
--- OUTSIDE RECORDS SUMMARY | 2022-01-28 08:54 | XMS_ITS | Encounter Summary ---
:1945 Author Organization [facility] Address [address] [place] [address] Care Team Providers Name Role Phone Yolanda Colón APRN, C.N.P. 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 - 01/12/2021 9:36 AM CDT spoke with Adelina yesterday at [employer]. Gave instructions to cut the Furosemide dose [...] Laboratory Medicine Neli Hearn M.D. [address] [place] [facility] [place] [address] (Stephon caldera) 02/14/2022 Office Visit Family Medicine Lilli Hearn M.D. [address] [place] [facility] [place] [phone] (Stephon caldera) documented as of this encounter Visit Diagnoses Not on filedocumented in this encounter Additional Health Concerns Assessment Noted Time PHQ-9 Depression Total Score: 4 04/16/2019 10:58 AM CS T documented as of this encounter Care Teams Senior Architect Relationship Specialty Start Date End Date Yolanda Colón APRN, C.N.P. PCP - General 09/08/16 01/19/22 documented as of this encounter
--- OUTSIDE RECORDS SUMMARY | 2022-01-28 08:54 | XMS_ITS | Encounter Summary ---
:1945 Author Organization [facility] Address [address] [place] [address] Care Team Providers Name Role Phone Yolanda Colón APRN, C.N.P. Primary Care Provider [phone] Reason for Visit Reason Comments Sore Throat 1 week Cough months Encounter Details Date Type Department Care Team Description 04/20/2021 Office Visit Department of Yolanda Craven Pha ryngitis Acute (Primary Dx); Medicine in AMBER, C.N.P. 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44 04/20/2021 3:52 PM MORTGAGE LOAN REVIEWER documented in this encounter Progress Notes Yolanda [...] call with those results when they return. Fskv-vss-[id number] analgesics for discomfort. F/u in 1 week [...] the furosemide 40 mg daily, discontinue metolazone. GAGE LOAN REVIEWER documented in this encounter Miscellaneous Notes Result Encounter Note - Neeru Hoffman R.N. - 04/22/2021 10:33 AM MORTGAGE LOAN REVIEWER Your patient has tested positive for SARS-CoV-2, the virus that causes COVID-19. IMPORTANT: Please update the patient's problem list and medication list to ensure an accurate and timely evaluation for COVID-19 treatments, including various medications and Remote Patient Monitoring (RPM). If eligible for COVID-19 treatments or RPM, your patient will be contacted by a designated team of nurses to coordinate the care. The [place] [facility] Team ([facility]) sends general guidance about COVID-19 to all patients by letter or portal, except when a patient is hospitalized or resides in a fci. The [facility] will also call all adult patients at highest risk for severe complications of COVID-19 . [facility] will not be calling patients who have a MASS 0-3. If your patient has limited Serbian proficiency or challenges navigating the healthcare system, [...] to reinforce when to se ek care. [facility] encourages patients to follow up with their PCP with questions, worsening symptoms, or for symptom management. For questions, contact the [place] [facility] Team ([facility]): Pager: [phone] In basket: P RST/[facility] COVID-19 POSITIVE Covid [...] to obtain the result by calling the [employer] result line or by checking their online services account. GAGE LOAN REVIEWER documented in this encounter Plan of Treatment Upcoming Encounters Date Type Specialty Care Team Description 02/11/2022 Appointment Laboratory Medicine Neli Hearn M.D. [address] [place] [facility] [place] [phone] (Wo rk) 02/14/2022 Office Visit Family Medicine Lilli Hearn M.D. [address] [place] [facility] [place] [phone] (Wo rk) documented as of this encounter Procedures Procedure Name Priority Date/Time Associated Diagnosis Comme nts STREP GROUP A, PCR, Routine 04/20/2021 7:17 PM Re sults for this POCT MORTGAGE LOAN REVIEWER procedure are i n the results section. SARS CORONAVIRUS 2 Routine 04/20/2021 4:17 PM Res ults for this PCR DETECT, V MORTGAGE LOAN REVIEWER procedure are in the results section. STREP GROUP A, PCR, Routine 04/20/2021 4:17 PM Pharyngitis Acu te Results for this POCT MORTGAGE LOAN REVIEWER procedure are i n the results section. documented in this encounter Results Strep Group A, PCR, Point of Care (04/20/2021 7:17 PM MORTGAGE LOAN REVIEWER) athologist Signature Strep Group A, Negative Negative 04/20/2021 NPRG PCR, POCT 7:17 PM MORTGAGE LOAN REVIEWER Specimen Anatomical Collection Method Collection Time Receive d Time (Source) Location / / Volume Laterality Varies 04/20/2021 7:17 PM 7:32 MORTGAGE LOAN REVIEWER PM MORTGAGE LOAN REVIEWER Generic Rals LAB POCT ORDERABLES - DEVICE Performing Organization Address City/State/ZIP Code Phon e Number [facility]- [address] [place], [place] [address] [place] [address] LAB NPRG [facility] [place] [address] [facility] [address] (ABNORMAL) SARS Coronavirus 2 PCR Detect, V (04/20/2021 4:17 PM MORTGAGE LOAN REVIEWER) [facility] Method Time Signature SARS-CoV-2 Nasopharynx 04/22/2021 [facility] Specimen 8:27 AM MORTGAGE LOAN REVIEWER Source SARS-CoV-2 Detected (A) Undetected 04/22/2021 [facility] RNA by PCR 8:27 AM MORTGAGE LOAN REVIEWER Comment: SARS-CoV-2 RNA present. ----ADDITIONAL INFORMATION---- This RT-PCR test using the carolyne SARS-Co V-2 assay ([employer] performed on the carolyne 6800/8800 S ystem has received Emergency Use Authorization (EUA) by the U.S. Food and Drug Administration, and is modified from the gas and oil checker's instructions wit h a bridging study. Performance characteristics were verified by [facility] inic in a manner consistent with CLIA requirements. Fact sheets for this Emergency Use Autho rization (EUA) assay can be found at the following links: For Healthcare Providers: https://www.[employer] a.gov/media/509480/download For Patients: https://www.[employer].gov/media/ 494996/download Specimen (Source) Anatomical Collection Method Collection Time Re ceived Time Location / / Volume Laterality Varies 04/20/2021 4:17 PM MORTGAGE LOAN REVIEWER Narrative [facility] - 04/22/2021 8:27 AM MORTGAGE LOAN REVIEWER Specimen Information: Specimen ID: [id number] Specimen Type: Varies Specimen Collection Start Date: 04/20/19 ??4:17 PM Specimen ID: [id number] Specimen Type: Varies Specimen Collection Start Date: 04/22/19 ??1:41 AM Specimen Received Date: 04/22/2021 ??1:4 1 AM Yolanda Colón APRN, C.N.P. LAB MICROBIOLOGY - GENE RAL ORDERABLES Performing Organization Address City/State/ZIP Code Phon e Number [facility] [address] [place] [address] [facility] [place] [address] Laboratory Medicine and Pathology [address] [place] [address] Dr. [place] Strep Group A, PCR, Point of Care (04/20/2021 4:17 PM MORTGAGE LOAN REVIEWER) Analysis Performed At Patho logist Time Signature Strep Group A, Collected DEFAULT 04/20/2021 NPRG PCR, POCT 4:17 PM MORTGAGE LOAN REVIEWER Specimen Anatomical Collection Method Collection Time Receive d Time (Source) Location / / Volume Laterality Varies (Throat) 04/20/2021 4:17 PM 2021 4:17 MORTGAGE LOAN REVIEWER PM MORTGAGE LOAN REVIEWER Yolanda Colón APRN C.N.P. LAB POCT ORDERABLES - D EVICE Performing Organization Address City/State/ZIP Code Phon e Number [facility]- [address] [place], [place] [address] [address] LAB NPRG [facility] [place] [address] documented in this encounter Visit Diagnoses Diagnosis Pharyngitis Acute - Primary Morbid Obesity Body Mass Index 45.0-49.9 Adult (HCC) Venous Insufficiency Chronic Peripheral documented in this encounter Additional Health Concerns Infection Onset Date Last Indicated Resolved Time COVID19 Pending 04/20/2021 04/20/2021 04/21/2021 8:48 PM MORTGAGE LOAN REVIEWER Assessment Noted Time PHQ-9 Depression Total Score: 4 04/16/2019 10:58 AM CS T documented as of this encounter Care Teams Cad Developer Relationship Specialty Start Date End Date Yolanda Colón APRN, C.N.P. PCP - General 09/08/16 01/19/22 documented as of this encounter
--- OUTSIDE RECORDS SUMMARY | 2022-01-28 08:54 | XMS_ITS | Encounter Summary ---
:1945 Author Organization [facility] Address [address] [place] [address] Care Team Providers Name Role Phone Yolanda Colón APRN, C.N.P. Primary Care Provider [phone] Reason for Referral Outpatient (Routine) - Closed Specialty Diagnoses / Procedures Referred By Contact Refer red To Contact Family Medicine [facility] C[facility] [address] [place] [address] Referral ID Status Reason Start Date Expiration Date Visits Requ ested Visits Authorized [id number] Closed 12/11/2020 12/11/2021 1 1 Scheduling Instructions Schedule appointment along with provider annual exam. Last medicare visit 12/11/2020 Reason for Visit Reason Comments Medicare Annual Wellness Visit Subsequent Outpatient (Routine) - Closed Specialty Diagnoses / Procedures Referred By Contact Refer red To Contact Family Johnathan [facility]need [facility]. [facility] Region [address] [place] [phone] Referral ID Status Reason Start Date Expiration Date Visits Requ ested Visits Authorized [id number] Closed 12/04/2019 12/03/2020 1 1 Encounter Details Date Type Department Care Team Description 12/11/2020 Office Visit Department of Rc Joyner D.O. [address] [place] [address] Annual Medicare Medicine in Torri Rolle A, R.N. [address] [place] [address] Examination Return Terri Michael (Primary Dx) [address] [place] [phone] Social History Tobacco Use Types Packs/Day Years [...] or relatives? How often do you attend tenriism or 1 to 4 times per year 11/2019 yarsanism services? 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 Home Environment Note: Lives in [facility] style home Advanced Directive Status: Advance directive [...] 02/11/2022 Appointment Laboratory Medicine Neli Hearn M.D. [address] [place], [place] [address], [place] [phone] (Wo rk) 02/14/2022 Office Visit Family Medicine Lilli Hearn M.D. [address] [place] [phone] (Wo rk) Scheduled Referrals Name Type Priority Associated Diagnoses Order [facility] Family Medicine Outpatient Referral Routine Expec deidre: nurse visit 12/13/2021 (clinic) (Approximate), Expires: 12/12/2023 documented as of this encounter Visit Diagnoses Diagnosis Annual Medicare Examination Return - Roseanna ailyn documented in this encounter Additional Health Concerns Assessment Noted Time PHQ-9 Depression Total Score: 4 04/16/2019 10:58 AM CS T documented as of this encounter Care Teams Agricultural Appraiser Relationship Specialty Start Date End Date Yolanda Colón APRN, C.N.P. PCP - General 09/08/16 01/19/22 documented as of this encounter
--- OUTSIDE RECORDS SUMMARY | 2022-01-28 08:54 | XMS_ITS | Encounter Summary ---
:1945 Author Organization [facility] Address [address] [place] [address] Care Team Providers Name Role Phone Yolanda Colón APRN, C.N.P. Primary Care Provider [phone] Reason for Visit Reason Comments Med Refill Encounter Details Date Type Department Care Team Description 04/12/2021 Refill Department of Family Medicine Yolanda Colón APRN, Med Refill in [facility] lela C.N.P. 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 - 04/12/2021 11:37 AM CLARK DRIVER Name of Medication(s) Needing Refill: bupropion XL 300 mg tablet Last Appointment: 12/01/20: PHQ-9 = 0 Future Appointment: none K DRIVER documented in this encounter Plan of Treatment Upcoming Encounters Date Type Specialty Care Team Description 02/11/2022 Appointment Laboratory Medicine Neli Hearn M.D. [address] [place] [phone] (Wo rk) 02/14/2022 Office Visit Family Medicine Lilli Hearn M.D. [address] [place] [phone] (Wo rk) documented as of this encounter Visit Diagnoses Not on filedocumented in this encounter Additional Health Concerns Assessment Noted Time PHQ-9 Depression Total Score: 4 04/16/2019 10:58 AM CS T documented as of this encounter Care Teams Gold Miner Blasting Relationship Specialty Start Date End Date Yolanda Colón APRN, C.N.P. PCP - General 09/08/16 01/19/22 documented as of this encounter
--- OUTSIDE RECORDS SUMMARY | 2022-01-28 08:54 | XMS_ITS | Encounter Summary ---
:1945 Author Organization [facility] Address [address] [place] [address] Care Team Providers Name Role Phone Yolanda Colón APRN, C.N.P. Primary Care Provider [phone] Reason for Visit Reason Comments Med Refill Encounter Details Date Type Department Care Team Description 09/28/2020 Refill Department of Family Medicine Yolanda Colón APRN, Med Refill in [facility] lela C.N.P. 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 [address] [place] [phone] (Wo rk) 02/14/2022 Office Visit Family Medicine Lilli Hearn M.D. [address] [place] [phone] (Wo rk) documented as of this encounter Visit Diagnoses Not on filedocumented in this encounter Additional Health Concerns Assessment Noted Time PHQ-9 Depression Total Score: 4 04/16/2019 10:58 AM CS T documented as of this encounter Care Teams Anesthesia Assistant Relationship Specialty Start Date End Date Yolanda Colón APRN, C.N.P. PCP - General 09/08/16 01/19/22 documented as of this encounter
--- OUTSIDE RECORDS SUMMARY | 2022-01-28 08:54 | XMS_ITS | Encounter Summary ---
:1945 Author Organization [facility] Address [address] [place] [address] Care Team Providers Name Role Phone Yolanda Colón APRN, C.N.P. Primary Care Provider [phone] Reason for Referral Specialty Diagnoses / Procedures Referred By Contact Refer red To Contact Marcellus Fair M.D. [facility] Region [address] [place] [phone] Referral ID Status Reason Start Date Expiration Date Visits Requ ested Visits Authorized ING TRACTOR MACHINE OPERATOR Encounter Details Date Type Department Care Team Description 05/20/2020 Orders Only [facility] PCP [facility] LAURAT Marcellus Fair Jr., M.D. 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 [address] [place] [phone] (Wo rk) 02/14/2022 Office Visit Family Medicine Lilli Hearn M.D. [address] [place] [phone] (Wo rk) Scheduled Referrals Name Type Priority Associated Order Schedule Diagnoses Covid immunization Outpatient Referral Routine Ex pected: office visit Initial 021 (Approximate), Expires: 05/20/2021 documented as of this encounter Visit Diagnoses Not on filedocumented in this encounter Additional Health Concerns Assessment Noted Time PHQ-9 Depression Total Score: 4 04/16/2019 10:58 AM CS T documented as of this encounter Care Teams Director Of Collections And Archives Relationship Specialty Start Date End Date Yolanda Colón APRN, C.N.P. PCP - General 09/08/16 01/19/22 documented as of this encounter
--- OUTSIDE RECORDS SUMMARY | 2022-01-28 08:54 | XMS_ITS | Encounter Summary ---
:1945 Author Organization [facility] Address [address] [place] [address] Care Team Providers Name Role Phone Yolanda Colón APRN, C.N.P. Primary Care Provider [phone] Reason for Referral Outpatient (Routine) - Closed Specialty Diagnoses / Procedures Referred By Contact Refer red To Contact Diagnoses Morbid Obesity (HCC) Shortness Of Breath Abnormal Electrocardiogram Yolanda Colón [facility] Region Procedures NM Cardiac Perfusion Rest and Stress SPECT REFRIGERATOR ROOM CLERK, C.N.P. [address] [place] [address] Referral ID Status Reason Start Date Expiration Date Visits Requ ested Visits Authorized [id number] Closed 12/01/2020 12/01/2021 6 6 utpatient (Routine) - Closed Specialty Diagnoses / Procedures Referred By Contact Refer red To Contact Diagnoses Edema Pedal Shortness Of Breath Yolanda Colón APRN [facility] Region Procedures ECG 12 Lead C.N.P. [address] [place] [address] Referral ID Status Reason Start Date Expiration Date Visits Requ ested Visits Authorized [id number] Closed 12/01/2020 12/01/2021 1 1 Reason for Visit Reason Comments Other back, right leg, handicap ca rd, and tired all the time. Encounter Details Date Type Department Care Team Description 12/01/2020 Office Visit Department of Family Jose Colón Sleep Apnea Adult (Primary Dx); Medicine in Yolanda Hart APRN, Morbid Obesit y (HCC); Haroon Michael Hypothyroidism; [place] [address] Edema Pedal; [address] [place], [place] Shortness Of Breath; [place] [address] Primary Osteoarthritis; [phone] Degeneration Disc Lumbar; Abnormal [...] or relatives? How often do you attend mosque or 1 to 4 times per year 11/2019 latter-day services? 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 Recommended David saxena, patient declined. Reassured him that this does [...] M.D. [address] [place] [facility] [place] [address] (Stephon rk) 02/14/2022 Office Visit Family Medicine Lilli Hearn M.D. [address] [place] [facility] [place] [address] (Stephon rk) documented as of this [...] Organization Address City/State/ZIP Code Phon e Number [facility]- [facility] [address] [place] [address] [place] [address] [place] [address] [place] [address] [address] [facility] S-TSH (Thyroid-Stimulating Hormone - Sensitive) (12/01/2020 4:26 [...] Organization Address City/State/ZIP Code Phon e Number [facility]- [address] [place], [place] [address] [place] LAB NPRG [facility] [place] [address] Basic Metabolic [...] CDT eGFR-Black/Afric 77 >=60 12/01/2020 NPRG an Norwegian mL/min/BSA 7:57 PM CDT Comment: ----ADDITIONAL INFORMATION---- [...] Organization Address City/State/ZIP Code Phon e Number [facility]- [address] [place], [place] [address] [place] [facility] NPRG [facility] [place] [address] (ABNORMAL) CBC with Differential, Blood (12/01/2020 4:26 PM CDT) [facility] Method Time Signature Hemoglobin 13.8 13.2 [...] Organization Address City/State/ZIP Code Phon e Number [facility]- [address] [place], [place] [address] [place] [facility] NPRG [facility] [place] [address] ECG 12 Lead (12/01/2020 4:19 PM CDT) P athologist Signature Ventricular Rate 78 BPM MUSE ECG/Min ID Interval 188 ms MUSE QRSD Interval 156 ms MUSE QT Interval 418 ms MUSE QTC Interval 476 ms MUSE P Ellsworth 24 degrees MUSE R Ellsworth 13 degrees MUSE T Wave Ellsworth -2 degrees MUSE Specimen Anatomical Collection Method [...] documented as of this encounter Care Teams Cleaner And Presser Relationship Specialty Start Date End Date Yolanda Colón APRN, C.N.P. PCP - General 09/08/16 01/19/22 documented as of this encounter
--- OUTSIDE RECORDS SUMMARY | 2022-01-28 08:54 | XMS_ITS | Encounter Summary ---
:1945 Author Organization [facility] Address [address] [place] [address] Care Team Providers Name Role Phone Yolanda Colón APRN, C.N.P. 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 He says he's not sure if the right prescription was called in for him to [facility]. He says he was expecting one prescription, [...] 02/11/2022 Appointment Laboratory Medicine Neli Hearn M.D. [address] [place] [phone] (Wo rk) 02/14/2022 Office Visit Family Medicine Lilli Hearn M.D. [address] [place] [address] (Wo rk) documented as of this encounter Visit Diagnoses Not on filedocumented in this encounter Additional Health Concerns Assessment Noted Time PHQ-9 Depression Total Score: 4 04/16/2019 10:58 AM CS T documented as of this encounter Care Teams Diaper Machine Tender Relationship Specialty Start Date End Date Yolanda Colón APRN, C.N.P. PCP - General 09/08/16 01/19/22 documented as of this encounter
--- OUTSIDE RECORDS SUMMARY | 2022-01-28 08:54 | XMS_ITS | Encounter Summary ---
:1945 Author Organization [facility] Address [address] [place] [address] Care Team Providers Name Role Phone Yolanda Colón APRN, C.N.P. 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 - 01/22/2021 2:22 PM CDT Pt wants you to know that the water pill is working but the MiraLAX is not. Is taking 3x week. He with increase it to 4-5 a week and follow up with you if needed. Telephone Encounter - Brittany Farley Tevin - 01/22/2021 1:37 PM CDT Patient would like a call back. Says the laxative that Adelina put him on is not working very well. Is there anything else someone can suggest to try. ?? Thank you. documented in this encounter Plan of Treatment Upcoming Encounters Date Type Specialty Care Team Description 02/11/2022 Appointment Laboratory Medicine Neli Hearn M.D. [address] [place] [address] (Stephon caldera) 02/14/2022 Office Visit Family Medicine Lilli Hearn M.D. [address] [place] [address] (Stephon caldera) documented as of this encounter Visit Diagnoses Not on filedocumented in this encounter Additional Health Concerns Assessment Noted Time PHQ-9 Depression Total Score: 4 04/16/2019 10:58 AM CS T documented as of this encounter Care Teams Manager Basketball Relationship Specialty Start Date End Date Yolanda Colón, FRENCH DRAWER, C.N.P. PCP - General 09/08/16 01/19/22 documented as of this encounter
--- OUTSIDE RECORDS SUMMARY | 2022-01-28 08:54 | XMS_ITS | Encounter Summary ---
:1945 Author Organization [facility] Address [address] [place] [address] Care Team Providers Name Role Phone Yolanda Colón APRN, C.N.P. Primary Care Provider [phone] Reason for Visit Outpatient (Routine) - Closed Specialty Diagnoses / Procedures Referred By Contact Refer red To Contact Diagnoses Morbid Obesity (HCC) Shortness Of Breath Abnormal Electrocardiogram Yolanda Colón, [facility] Region Procedures NM Cardiac Perfusion Rest and Stress SPECT AMBER, C.N.P. [address] [place] [address] Referral ID Status Reason Start Date Expiration Date Visits Requ ested Visits Authorized [id number] Closed 12/01/2020 12/01/2021 6 6 Encounter Details Date Type Department Care Team Description 12/29/2020 Hospital Encounter Department of Radiology Yolanda Colón, in [facility] AMBER, C.N.P. [address] [facility] [address] [place] [phone] (Wo rk) Social History Tobacco Use [...] No 12/04/2019 organizations such as restorationist groups, [employer], [employer] or athletic groups, or school groups? 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 [address] [place] [facility] [address] (Wo rk) 02/14/2022 Office Visit Family Medicine Lilli Hearn M.D. [address] [place] [address] (Wo rk) documented as of this encounter Procedures Procedure Name Priority Date/Time Associated Diagnosis Comme [facility] [place] CARDIAC RAD - Routine 12/29/2020 Morbid [...] documented as of this encounter Care Teams Baker Test Relationship Specialty Start Date End Date Yolanda Colón APRN, C.N.P. PCP - General 09/08/16 01/19/22 documented as of this encounter
--- OUTSIDE RECORDS SUMMARY | 2022-01-28 08:54 | XMS_ITS | Encounter Summary ---
:1945 Author Organization [facility] Address [address] [place] [address] Care Team Providers Name Role Phone Yolanda Colón APRN, C.N.P. Primary Care Provider [phone] Reason for Visit Reason Comments Med Refill Encounter Details Date Type Department Care Team Description 01/25/2021 Refill Department of Family Medicine Yolanda Colón APRN, Med Refill in [facility] lela C.N.P. 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 [address] [place] [phone] (Wo rk) 02/14/2022 Office Visit Family Medicine Lilli Hearn M.D. [address] [place] [phone] (Wo rk) documented as of this encounter Visit Diagnoses Not on filedocumented in this encounter Additional Health Concerns Assessment Noted Time PHQ-9 Depression Total Score: 4 04/16/2019 10:58 AM CS T documented as of this encounter Care Teams Business Services Director Relationship Specialty Start Date End Date Yolanda Colón APRN, C.N.P. PCP - General 09/08/16 01/19/22 documented as of this encounter
--- OUTSIDE RECORDS SUMMARY | 2022-01-28 08:55 | XMS_ITS | Encounter Summary ---
:1945 Author Organization [facility] Address [address] [place] [address] Care Team Providers Name Role Phone Yolanda Colón APRN, C.N.P. 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 Please advise. Telephone Encounter - Karena Cisneros - 06/12/2019 8:39 AM CDT Pt would like a call/// states water pills are not working. documented in this encounter Plan of Treatment Upcoming Encounters Date Type Specialty Care Team Description 02/11/2022 Appointment Laboratory Medicine Neli Hearn M.D. [address] [place] [phone] (Wo rk) 02/14/2022 Office Visit Family Medicine Lilli Hearn M.D. [address] [place] [phone] (Wo rk) documented as of this encounter Visit Diagnoses Not on filedocumented in this encounter Additional Health Concerns Assessment Noted Time PHQ-9 Depression Total Score: 4 04/16/2019 10:58 AM CS T documented as of this encounter Care Teams Gore Maker Relationship Specialty Start Date End Date Yolanda Colón APRN, C.N.P. PCP - General 09/08/16 01/19/22 documented as of this encounter
--- OUTSIDE RECORDS SUMMARY | 2022-01-28 08:55 | XMS_ITS | Encounter Summary ---
:1945 Author Organization [facility] Address [address] [place] [address] Care Team Providers Name Role Phone Yolanda Colón APRN, C.N.P. Primary Care Provider [phone] Reason for Referral Outpatient (Routine) - Closed Specialty Diagnoses / Procedures Referred By Contact Refer red To Contact Family Medicine Diagnoses Edema Leg Hypertension Essential Primary Meri Estevez APRN, [facility] Region C.N.P. [address] [place] [address] Referral ID Status Reason Start Date Expiration Date Visits Requ ested Visits Authorized [id number] Closed 11/12/2019 11/11/2020 1 1 Outpatient (Routine) - Closed Specialty Diagnoses / Procedures Referred By Contact Refer red To Contact Diagnoses Edema Leg Hypertension Essential Primary Meri Estevez APRN, [facility] Region Procedures US Lower Extremity Veins Right C.N.P. [address] [place] [address] Referral ID Status Reason Start Date Expiration Date Visits Requ ested Visits Authorized [id number] Closed 11/12/2019 11/11/2020 1 1 Reason for Visit Reason Comments Other right leg swelling, needs re peat blood work Encounter Details Date Type Department Care Team Description 11/12/2019 Office Visit Department of Family Zenaida [facility] Brown Leg (Primary Dx); Medicine in MARKETING AMBASSADOR, C.N.P. Hypertension Essential Primary Terri Kelley [address] [place], [place] [phone] Social History Tobacco Use Types Packs/Day Years [...] 1 to 4 times per year 11/2019 church services? 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 [address] [place] [phone] (Wo rk) 02/14/2022 Office Visit Family Medicine Lilli Hearn M.D. [address] [place] [phone] (Wo rk) Scheduled Referrals Name Type Priority Associated Diagnoses [facility] Outpatient Referral Routine Edema Leg [...] Meri Estevez APRN, C.N.P. IMG US PROCEDURES NT-Pro B-Type Natriuretic [...] supplements. ??If the result does not [facility] clinical observations, repeat testing after patient refrains fr om the use of supplements for at least 12 hours. Specimen Anatomical Collection Method Collection Time Receive d Time (Source) Location / / Volume Laterality Blood (Blood, 11/12/2019 4:02 PM 11/13/19 20 Venous) CDT 11:55 AM CDT Meri Estevez APRN, C.N.P. LAB BLOOD ADD-ON Performing Organization Address City/State/ZIP Code Phon e Number [facility]- [address] [place] [id number] [address] [place] [address] [place] [address] [facility] [address] [place] documented in this encounter Visit Diagnoses Diagnosis Edema Leg - Primary Hypertension Essential Primary Edema Leg Hypertension Essential Primary documented in this encounter Additional Health Concerns Assessment Noted Time PHQ-9 Depression Total Score: 4 04/16/2019 10:58 AM CS T documented as of this encounter Care Teams Wrapper Leaf Inspector Relationship Specialty Start Date End Date Yolanda Colón APRN, C.N.P. PCP - General 09/08/16 01/19/22 documented as of this encounter
--- OUTSIDE RECORDS SUMMARY | 2022-01-28 08:55 | XMS_ITS | Encounter Summary ---
:1945 Author Organization [facility] Address [address] [place] [address] Care Team Providers Name Role Phone Yolanda Colón APRN, C.N.P. Primary Care Provider [phone] Reason for Visit Reason Comments Med Refill Encounter Details Date Type Department Care Team Description 03/28/2020 Refill Department of Family Medicine Yolanda Colón APRN, Med Refill in [facility] lela C.N.P. 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 - 03/28/2020 10:51 AM HIDE GRADER Unable to refill per protocol: Name of Medications Needing Refill: Spironolactone pravastatin Last Refill Date: 02/18/20 Additional Information: Last / Future Appointment: Last OV 01/14/20 No future Ov scheduled Last lab 04/16/19 GRADER documented in this encounter Plan of Treatment Upcoming Encounters Date Type Specialty Care Team Description 02/11/2022 Appointment Laboratory Medicine Neli Hearn M.D. [address] [place] [phone] (Wo rk) 02/14/2022 Office Visit Family Medicine Lilli Hearn M.D. [address] [place] [phone] (Wo rk) documented as of this encounter Visit Diagnoses Not on filedocumented in this encounter Additional Health Concerns Assessment Noted Time PHQ-9 Depression Total Score: 4 04/16/2019 10:58 AM CS T documented as of this encounter Care Teams Second Shift Supervisor Relationship Specialty Start Date End Date Yolanda Colón APRN, C.N.P. PCP - General 09/08/16 01/19/22 documented as of this encounter
--- OUTSIDE RECORDS SUMMARY | 2022-01-28 08:55 | XMS_ITS | Encounter Summary ---
:1945 Author Organization [facility] Address [address] [place] [address] Care Team Providers Name Role Phone Yolanda Colón APRN, C.N.P. Primary Care Provider [phone] Encounter Details Date Type Department Care Team Description 04/18/2019 Hospital Encounter Department of Radiology Yolanda Colón, Lipoma in [facility] thony CLARK, C.N.P. 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 [id number] Take 10 mL by mouth 0 01/07/2020 [...] Hearn M.D. [address] [place] [phone] (Wo rk) 02/14/2022 Office Visit Family Medicine Lilli Hearn M.D. [address] [place] [address] (Wo rk) documented as of this encounter Procedures Procedure Name Priority Date/Time Associated Comments Diagnosis US HEAD NECK SOFT RAD - Routine 04/18/2019 9:11 Lipoma Result s for this TISSUE (most inpatients AM DRY KILN LOADER procedure a re in and all the results outpatients) section. documented in this encounter Results US Head Neck Soft Tissue (04/18/2019 9:11 AM DRY KILN LOADER) Anatomical Region Laterality Modality Head and Neck, Ultrasound RST LOS, Ultrasound ARZ LOS, N/A Ultrasound Ultrasound FLA LOS Specimen (Source) Anatomical Collection Method Collection Time Re ceived Time Location / / Volume Laterality 04/18/2019 9:13 AM DRY KILN LOADER Impressions 04/18/2019 9:25 AM DRY KILN LOADER Multiple small probable benign lipomas identified in the neck bilaterally. Narrative 04/18/2019 9:25 AM DRY KILN LOADER EXAM: US HEAD NECK SOFT TISSUE COMPARISON: [...] documented as of this encounter Care Teams Nursery Worker Relationship Specialty Start Date End Date Yolanda Colón APRN, C.N.P. PCP - General 09/08/16 01/19/22 documented as of this encounter
--- OUTSIDE RECORDS SUMMARY | 2022-01-28 08:55 | XMS_ITS | Encounter Summary ---
:1945 Author Organization [facility] Address [address] [place] [address] Care Team Providers Name Role Phone Yolanda Colón APRN, C.N.P. Primary Care Provider [phone] Encounter Details Date Type Department Care Team Description 06/14/2019 Orders Only Department of Family Yolanda Colón Hyp ertension Essential Medicine in AMBER Hart, C.N.P. 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 [address] [facility] [place] [phone] (Wo rk) 02/14/2022 Office Visit Family Medicine Lilli Hearn M.D. [address] [facility] [place] [place] [address] (Wo rk) documented as of this [...] CDT eGFR-Black/Afric 88 >=60 07/16/2019 NPRG an Yemeni mL/min/BSA 12:06 PM CDT Comment: ----ADDITIONAL INFORMATION---- [...] Organization Address City/State/ZIP Code Phon e Number [facility]- [address] [place], [place] [address] [place] [address] [place] [address] [address] [facility] documented in this encounter Visit Diagnoses Diagnosis Hypertension Essential Primary - Primary documented in this encounter Additional Health Concerns Assessment Noted Time PHQ-9 Depression Total Score: 4 04/16/2019 10:58 AM CS T documented as of this encounter Care Teams Contract Paralegal Relationship Specialty Start Date End Date Yolanda Colón APRN, C.N.P. PCP - General 09/08/16 01/19/22 documented as of this encounter
--- OUTSIDE RECORDS SUMMARY | 2022-01-28 08:55 | XMS_ITS | Encounter Summary ---
:1945 Author Organization [facility] Address [address] [place] [address] Care Team Providers Name Role Phone Yolanda Colón APRN, C.N.P. Primary Care Provider [phone] Encounter Details Date Type Department Care Team Description 07/16/2019 Orders Only Department of Family Yolanda Colón Glucose Medicine in AMBER Hart, C.N.PFamilia (Primary Dx) Alec [facility] a [address] [place] [phone] Social History Tobacco Use Types Packs/Day Years [...] 1 to 4 times per year 11/2019 mosque services? 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 [address] [place] [address] (Wo rk) 02/14/2022 Office Visit Family Medicine Lilli Hearn M.D. [address] [place] [phone] (Wo rk) documented as of this encounter Visit Diagnoses Diagnosis Elevated Glucose - Primary documented in this encounter Additional Health Concerns Assessment Noted Time PHQ-9 Depression Total Score: 4 04/16/2019 10:58 AM CS T documented as of this encounter Care Teams Music Typographer Relationship Specialty Start Date End Date Yolanda Colón APRN, C.N.P. PCP - General 09/08/16 01/19/22 documented as of this encounter
--- OUTSIDE RECORDS SUMMARY | 2022-01-28 08:55 | XMS_ITS | Encounter Summary ---
:1945 Author Organization [facility] Address [address] [place] [address] Care Team Providers Name Role Phone Yolanda Colón APRN, C.N.P. 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 Patient was warm transferred to [facility] to make an appointment. Telephone Encounter - [...] Appointment Laboratory Medicine Neli Hearn M.D. [address] [place] [phone] (Stephon caldera) 02/14/2022 Office Visit Family Medicine Lilli Hearn M.D. [address] [facility] [phone] (Stephon caldera) documented as of this encounter [...] CDT eGFR-Black/Afric 89 >=60 01/07/2020 NPRG an Indian mL/min/BSA 8:09 PM CDT Comment: ----ADDITIONAL INFORMATION---- [...] Organization Address City/State/ZIP Code Phon e Number [facility]- [address] [place], [place] [address] [place] [address] documented in this encounter Visit Diagnoses Diagnosis Hypertension Essential Primary - Primary documented in this encounter Additional Health Concerns Assessment Noted Time PHQ-9 Depression Total Score: 4 04/16/2019 10:58 AM CS T documented as of this encounter Care Teams Rug Cleaner Hand Relationship Specialty Start Date End Date Yolanda Colón APRN, C.N.P. PCP - General 09/08/16 01/19/22 documented as of this encounter
--- OUTSIDE RECORDS SUMMARY | 2022-01-28 08:55 | XMS_ITS | Encounter Summary ---
:1945 Author Organization [facility] Address [address] [place] [address] Care Team Providers Name Role Phone Yolanda Colón APRN, C.N.P. Primary Care Provider [phone] Reason for Visit Reason Comments Med Refill Encounter Details Date Type Department Care Team Description 12/26/2019 Refill Department of Family Medicine Yolanda Colón APRN, Med Refill in [facility] C.N.P. 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 [address] [place] [phone] (Stephon caldera) 02/14/2022 Office Visit Family Medicine Lilli Hearn M.D. [address] [place] [phone] (Stephon caldera) documented as of this encounter Visit Diagnoses Not on filedocumented in this encounter Additional Health Concerns Assessment Noted Time PHQ-9 Depression Total Score: 4 04/16/2019 10:58 AM CS T documented as of this encounter Care Teams Supervisor Cold Rolling Relationship Specialty Start Date End Date Yolanda Colón, SPECIALIZED DEVELOPER, C.N.P. PCP - General 09/08/16 01/19/22 documented as of this encounter
--- OUTSIDE RECORDS SUMMARY | 2022-01-28 08:55 | XMS_ITS | Encounter Summary ---
:1945 Author Organization [facility] Address [address] [place] [address] Care Team Providers Name Role Phone Yolanda Colón APRN, C.N.P. 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 [address] [place] [phone] (Wo rk) 02/14/2022 Office Visit Family Medicine Lilli Hearn M.D. [address] [place] [address] (Wo rk) documented as of this encounter Visit Diagnoses Not on filedocumented in this encounter Additional Health Concerns Assessment Noted Time PHQ-9 Depression Total Score: 4 04/16/2019 10:58 AM CS T documented as of this encounter Care Teams Field Agronomist Relationship Specialty Start Date End Date Yolanda Colón APRN, C.N.P. PCP - General 09/08/16 01/19/22 documented as of this encounter
--- OUTSIDE RECORDS SUMMARY | 2022-01-28 08:55 | XMS_ITS | Encounter Summary ---
:1945 Author Organization [facility] Address [address] [place] [address] Care Team Providers Name Role Phone Yolanda Colón APRN, C.N.P. Primary Care Provider [phone] Encounter Details Date Type Department Care Team Description 07/16/2019 Hospital Encounter Department of Sara Colón Laboratory Medicine Yolanda Hart APRN, Essent ial Primary [facility] [place] [address] [place] [phone] Social History Tobacco Use Types Packs/Day Years [...] TIRE DUSTER documented as of this encounter Medications at [...] tablet mg total) by mouth at bedtime. njzxmeouqbloqmj-PK-mftjOVA Take 10 mL by mouth 0 01/07/2020 [...] Laboratory Medicine Neli Hearn M.D. [address] [place] [phone] (Wo rk) 02/14/2022 Office Visit Family Medicine Lilli Hearn M.D. [address] [facility] [place] [phone] (Wo rk) documented as of this encounter [...] CDT eGFR-Black/Afric 88 >=60 07/16/2019 NPRG an Bulgarian mL/min/BSA 12:06 PM CDT Comment: ----ADDITIONAL INFORMATION---- [...] Organization Address City/State/ZIP Code Phon e Number [facility]- [address] [place] [address] [address] [facility] [address] [place] [address] [place] documented in this encounter Visit Diagnoses Diagnosis Hypertension Essential Primary documented in this encounter Additional Health Concerns Assessment Noted Time PHQ-9 Depression Total Score: 4 04/16/2019 10:58 AM CS T documented as of this encounter Care Teams Cloth Bolt Bander Relationship Specialty Start Date End Date Yolanda Colón APRN, C.N.P. PCP - General 09/08/16 01/19/22 documented as of this encounter
--- OUTSIDE RECORDS SUMMARY | 2022-01-28 08:55 | XMS_ITS | Encounter Summary ---
:1945 Author Organization [facility] Address [address] [place] [address] Care Team Providers Name Role Phone Yolanda Colón APRN, C.N.P. Primary Care Provider [phone] Reason for Visit Reason Comments Med Refill lab Encounter Details Date Type Department Care Team Description 04/16/2019 Office Visit Department of Family Yolanda Colón Hyp ertension Essential Primary (Primary Dx); Medicine in AMBER Hart, C.N.P. 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 documented as of this encounter Last Filed Vital Signs Vital Sign Reading Time Taken Comments Blood Pressure 135/76 04/16/2019 10:05 AM PODIATRY DOCTOR Pulse 79 04/16/2019 10:05 AM PODIATRY DOCTOR Temperature 36.6 ??C (97.9 ??F) 04/16/2019 10:05 AM PODIATRY DOCTOR Respiratory Rate 20 04/16/2019 10:05 AM PODIATRY DOCTOR Oxygen Saturation 94% 04/16/2019 10:05 AM PODIATRY DOCTOR Inhaled Oxygen Concentration - - Weight 147 kg (323 lb 3.2 oz) 04/16/2019 10:05 AM PODIATRY DOCTOR Height 176 cm (5' 9.29) 04/16/2019 10:05 AM PODIATRY DOCTOR Body Mass Index 47.33 04/16/2019 10:05 AM PODIATRY DOCTOR documented in this encounter Progress Notes Yolanda [...] by mouth as needed for allergies. ??? abysmwlidwpzbak-QZ-bvskFBHzsqk (ROBITUSSIN-PE) 30-10-100 mg/5 mL solution Take 10 [...] of medications were discussed. Recommendations of the [place] [employer] were discussed. Lifestyle modifications were [...] diet advised. Portion control, regular exercise encouraged. ATRY DOCTOR documented in this encounter Plan of Treatment Upcoming Encounters Date Type Specialty Care Team Description 02/11/2022 Appointment Laboratory Medicine Neli Hearn M.D. [address] [place] [phone] (Stephon caldera) 02/14/2022 Office Visit Family Medicine Lilli Hearn M.D. [address] [place] [address] (Stephon caldera) documented as of this encounter Procedures Procedure Name Priority Date/Time Associated Diagnosis Comme nts PROSTATE-SPECIFIC Routine 04/16/2019 11:23 Benign Prostatic Re sults for this AG (PSA) SCRN, S AM PODIATRY DOCTOR Hyperplasia Without proc edure are in Obstruction the results section. LIPID PANEL, S Routine 04/16/2019 10:53 Hyperlipidemia Results for this AM PODIATRY DOCTOR procedure are i n the results section. BASIC METABOLIC Routine 04/16/2019 10:53 Hypertension Essentia l Results for this PANEL, S/P AM PODIATRY DOCTOR Primary procedure are i n the results section. documented in this encounter Results US Head Neck Soft Tissue (04/18/2019 9:11 AM PODIATRY DOCTOR) Anatomical Region Laterality Modality Head and Neck, Ultrasound RST LOS, Ultrasound ARZ LOS, N/A Ultrasound Ultrasound FLA LOS Specimen (Source) Anatomical Collection Method Collection Time Re ceived Time Location / / Volume Laterality 04/18/2019 9:13 AM PODIATRY DOCTOR Impressions 04/18/2019 9:25 AM PODIATRY DOCTOR Multiple small probable benign lipomas identified in the neck bilaterally. Narrative 04/18/2019 9:25 AM PODIATRY DOCTOR EXAM: US HEAD NECK SOFT TISSUE COMPARISON: [...] PSA (Prostate-Specific Antigen) Screen (04/16/2019 11:23 AM PODIATRY DOCTOR) athologist Signature Prostate-Specif 3.0 <=6.5 ng/mL 04/16/2019 NPRG ic Ag 4:39 PM PODIATRY DOCTOR Comment: Biotin has been identified by the josue lobato as a potential interfering substance. ??Higher concentr ations of biotin may be found in multivitamins, hair/nail supple ments, and workout supplements. ??If the result does not [facility] clinical observations, repeat testing after patient refrains [...] (Blood, 04/16/2019 11:23 04/16/2019 3:38 Venous) AM PODIATRY DOCTOR PM PODIATRY DOCTOR Yolanda Colón APRN C.N.P. LAB BLOOD ADD-ON Performing Organization Address City/State/ZIP Code Phon e Number [facility]- [address] [place], [place] [address] [place] [address] [facility] [address] (ABNORMAL) Lipid Panel (04/16/2019 10:53 AM PODIATRY DOCTOR) P athologist Signature Cholesterol, 190 mg/dL 04/16/2019 NPRG Total 4:12 PM PODIATRY DOCTOR Comment: ----REFERENCE VALUE---- Desirable: < 200 Borderline high: 200 - 239 High: > or = 240 Triglycerides 163 (H) mg/dL 04/16/2019 4:12 PM PODIATRY DOCTOR NPR G Comment: ----REFERENCE VALUE---- Normal: <150 Borderline high: 150-199 High: 200-499 Very high: > or =500 Cholesterol, HDL, S 42 >=40 mg/dL 04/16/2019 4:12 PM PODIATRY DOCTOR NPRG Calculated LDL 115 mg/dL 04/16/2019 4:12 PM PODIATRY DOCTOR PASTORAL ASSISTANT RG Comment: ----REFERENCE VALUE---- Desirable: <100 Above Desirable: 100-129 Borderline high: 130-159 High: 160-189 Very high: > or =190 Cholesterol, Non-HDL, Calculated 148 mg/dL 020 4:12 PM PODIATRY DOCTOR NPRG Comment: ----REFERENCE VALUE---- Desirable: <130 Above Desirable: 130-159 Borderline high: 160-189 High: 190-219 Very high: > or =220 Specimen Anatomical Collection Method Collection Time Receive d Time (Source) Location / / Volume Laterality Blood (Blood, 04/16/2019 10:53 04/16/2019 3:38 Venous) AM PODIATRY DOCTOR PM PODIATRY DOCTOR Yolanda Colón APRN, C.N.P. LAB BLOOD ADD-ON Performing Organization Address City/State/ZIP Code Phon e Number [facility]- [address] [place], [place] [address] [address] [place] [address] (ABNORMAL) Basic Metabolic Panel (04/16/2019 10:53 AM PODIATRY DOCTOR) P athologist Signature Potassium, S 3.6 3.6 - 5.2 04/16/2019 NPRG mmol/L 4:12 PM PODIATRY DOCTOR Sodium, S 139 135 - 145 04/16/2019 NPRG mmol/L 4:12 PM PODIATRY DOCTOR Chloride, S 98 98 - 107 04/16/2019 NPRG mmol/L 4:12 PM PODIATRY DOCTOR Bicarbonate, S 26 22 - 29 04/16/2019 NPRG mmol/L 4:12 PM PODIATRY DOCTOR Anion Gap 15 7 - 15 04/16/2019 NPRG 4:12 PM PODIATRY DOCTOR BUN (Blood Urea 11 8 - 24 04/16/2019 NPRG Nitrogen), S mg/dL 4:12 PM PODIATRY DOCTOR Creatinine 1.01 0.74 - 04/16/2019 NPRG 1.35 mg/dL 4:12 PM PODIATRY DOCTOR eGFR-Non 74 >=60 04/16/2019 NPRG Black/ mL/min/BSA 4:12 PM PODIATRY DOCTOR Cypriot Comment: ----ADDITIONAL INFORMATION---- Estimated GFR calculated using the 2009 CKD_EPI creatinine equation. eGFR-Black/ 86 >=60 mL/min/BSA 2019 4:12 PM PODIATRY DOCTOR NPRG Comment: ----ADDITIONAL INFORMATION---- Estimated GFR calculated using the 2009 CKD_EPI creatinine equation. Calcium, Total, S 9.5 8.8 - 10.2 mg/dL 04/16/2019 4:12 PM PODIATRY DOCTOR NPRG Glucose, S 157 (H) 70 - 140 mg/dL 04/16/2019 4:12 PM PODIATRY DOCTOR N PRG Specimen Anatomical Collection Method Collection Time Receive d Time (Source) Location / / Volume Laterality Blood (Blood, 04/16/2019 10:53 04/16/2019 3:38 Venous) AM PODIATRY DOCTOR PM PODIATRY DOCTOR Yolanda Colón APRN, C.N.P. LAB BLOOD ADD-ON Performing Organization Address City/State/ZIP Code Phon e Number [facility]- [address] [place], [place] [address] [facility] [place] [address] documented in [...]
--- OUTSIDE RECORDS SUMMARY | 2022-01-28 08:55 | XMS_ITS | Encounter Summary ---
:1945 Author Organization [facility] Address [address] [place] [address] Care Team Providers Name Role Phone Yolanda Colón APRN, C.N.P. Primary Care Provider [phone] Reason for Visit Reason Comments Med Refill Encounter Details Date Type Department Care Team Description 02/25/2019 Refill Department of Family Medicine Yolanda Colón APRN, Med Refill in [facility] lela C.N.P. 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 - 02/25/2019 3:25 PM CST Last office visit 08/21/18 - Acute visit. Due for annual med review ERCIAL REAL ESTATE ASSISTANT documented in this encounter Plan of Treatment Upcoming Encounters Date Type Specialty Care Team Description 02/11/2022 Appointment Laboratory Medicine Neli Hearn M.D. [address] [place] [phone] (Wo rk) 02/14/2022 Office Visit Family Medicine Lilli Hearn M.D. [address] [place] [phone] (Wo rk) documented as of this encounter Visit Diagnoses Not on filedocumented in this encounter Additional Health Concerns Assessment Noted Time PHQ-9 Depression Total Score: 10 01/09/2018 10:48 AM C DT documented as of this encounter Care Teams Supply Chain Program Manager Relationship Specialty Start Date End Date Yolanda Colón APRN, C.N.P. PCP - General 09/08/16 01/19/22 documented as of this encounter
--- OUTSIDE RECORDS SUMMARY | 2022-01-28 08:55 | XMS_ITS | Encounter Summary ---
:1945 Author Organization [facility] Address [address] [place] [address] Care Team Providers Name Role Phone Yolanda Colón APRN, C.N.P. 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 He had no further questions. UTER SYSTEMS SOFTWARE ARCHITECT Telephone Encounter - Margo Murillo - 05/06/2019 3:57 PM CST Medhat would like a call back, he has a sinus headache and was told by Noemi that he can only take certain medication and wants to know if he can take Advil. UTER SYSTEMS SOFTWARE ARCHITECT documented in this encounter Plan of Treatment Upcoming Encounters Date Type Specialty Care Team Description 02/11/2022 Appointment Laboratory Medicine Neli Hearn M.D. [address] [place] [address] (Stephon caldera) 02/14/2022 Office Visit Family Medicine Lilli Hearn M.D. [address] [place] [address] (Stephon caldera) documented as of this encounter Visit Diagnoses Not on filedocumented in this encounter Additional Health Concerns Assessment Noted Time PHQ-9 Depression Total Score: 4 04/16/2019 10:58 AM CS T documented as of this encounter Care Teams Fountain Pen Nibs Inspector Relationship Specialty Start Date End Date Yolanda Colón APRN, C.N.P. PCP - General 09/08/16 01/19/22 documented as of this encounter
--- OUTSIDE RECORDS SUMMARY | 2022-01-28 08:55 | XMS_ITS | Encounter Summary ---
:1945 Author Organization [facility] Address [address] [place] [address] Care Team Providers Name Role Phone Yolanda Colón APRN, C.N.P. Primary Care Provider [phone] Reason for Referral Outpatient (Routine) - Closed Specialty Diagnoses / Procedures Referred By Contact Refer red To Contact Diagnoses Edema Leg Hypertension Essential Primary Meri Estevez APRN, [facility] Region Procedures US Lower Extremity Veins Right C.N.P. [address] [place] [address] Referral ID Status Reason Start Date Expiration Date Visits Requ ested Visits Authorized [id number] Closed 11/12/2019 11/11/2020 1 1 Reason for Visit Outpatient (Routine) - Closed Specialty Diagnoses / Procedures Referred By Contact Refer red To Contact Diagnoses Edema Leg Hypertension Essential Primary Meri Estevez APRN, [facility] Region Procedures US Lower Extremity Veins Right C.N.P. [address] [place] [address] Referral ID Status Reason Start Date Expiration Date Visits Requ ested Visits Authorized [id number] Closed 11/12/2019 11/11/2020 1 1 Encounter Details Date Type Department Care Team Description 11/15/2019 Hospital Encounter Department of Meri Estevez; Radiology in [place] Hart APRN Hypertensio ester [place], [place] C.N.P. 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 ielcuexzmgwmhpd-JH-zzhjC Take 10 mL by mouth 0 01/07/2020 [...] Laboratory Medicine Neli Hearn M.D. [address] [place] [address] (Stephon caldera) 02/14/2022 Office Visit Family Medicine Lilli Hearn M.D. [address] [place] [address] (Stephon caldera) documented as of [...] documented as of this encounter Care Teams Voice Teacher Relationship Specialty Start Date End Date Yolanda Colón APRN, C.N.P. PCP - General 09/08/16 01/19/22 documented as of this encounter
--- OUTSIDE RECORDS SUMMARY | 2022-01-28 08:55 | XMS_ITS | Encounter Summary ---
:1945 Author Organization [facility] Address [address] [place] [address] Care Team Providers Name Role Phone Yolanda Colón APRN, C.N.P. Primary Care Provider [phone] Reason for Referral Outpatient (Routine) - Closed Specialty Diagnoses / Procedures Referred By Contact Refer red To Contact Family Medicine Johnathan Guy D.O. [facility] Region [address] [place] [address] Referral ID Status Reason Start Date Expiration Date Visits Requ ested Visits Authorized [id number] Closed 12/04/2019 12/03/2020 1 1 Scheduling Instructions 12 Month Medicare visit Reason for Visit Reason Comments Medicare Annual Wellness Visit Subsequent Outpatient (Routine) - Closed Specialty Diagnoses / Procedures Referred By Contact Refer red To Contact Family Medicine [facility] [address] [place] [address] Referral ID Status Reason Start Date Expiration Date Visits Requ ested Visits Authorized [id number] Closed 11/07/2019 11/06/2020 1 1 Encounter Details Date Type Department Care Team Description 12/04/2019 Office Visit Department of Yolanda Craven APRN, C.N.P. [address] [place] [address] Annual Medicare Medicine in [place], Wendy Kaplan R.N. 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 [address] [place] [phone] (Wo rk) 02/14/2022 Office Visit Family Medicine Lilli Hearn M.D. [address] [place] [phone] (Wo rk) Scheduled Referrals Name Type Priority Associated Diagnoses Order S [facility] Family Medicine Outpatient Referral Routine Expec deidre: nurse visit 12/11/2020 (clinic) (Approximate), Expires: 12/03/2022 documented as of this encounter Visit Diagnoses Diagnosis Annual Medicare Examination Return - Roseanna ailyn documented in this encounter Additional Health Concerns Assessment Noted Time PHQ-9 Depression Total Score: 4 04/16/2019 10:58 AM CS T documented as of this encounter Care Teams Information Services Assistant Relationship Specialty Start Date End Date Yolanda Colón APRN, C.N.P. PCP - General 09/08/16 01/19/22 documented as of this encounter
--- OUTSIDE RECORDS SUMMARY | 2022-01-28 08:55 | XMS_ITS | Encounter Summary ---
:1945 Author Organization [facility] Address [address] [place] [address] Care Team Providers Name Role Phone Yolanda Colón APRN, C.N.P. Primary Care Provider [phone] Reason for Visit Reason Comments Med Refill Encounter Details Date Type Department Care Team Description 04/11/2019 Refill Department of Family Medicine Yolanda Colón APRN, Med Refill in [facility] lela C.N.P. 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 - 04/11/2019 3:53 PM CST Last office visit 08/21/2018. Future appt 04/16/2019 NESS LIAISON MANAGER documented in this encounter Plan of Treatment Upcoming Encounters Date Type Specialty Care Team Description 02/11/2022 Appointment Laboratory Medicine Neli Hearn M.D. [address] [place] [phone] (Wo rk) 02/14/2022 Office Visit Family Medicine Lilli Hearn M.D. [address] [place] [phone] (Wo rk) documented as of this encounter Visit Diagnoses Not on filedocumented in this encounter Additional Health Concerns Assessment Noted Time PHQ-9 Depression Total Score: 10 01/09/2018 10:48 AM C DT documented as of this encounter Care Teams Dairy Farm Supervisor Relationship Specialty Start Date End Date Yolanda Colón APRN, C.N.P. PCP - General 09/08/16 01/19/22 documented as of this encounter
--- OUTSIDE RECORDS SUMMARY | 2022-01-28 08:55 | XMS_ITS | Encounter Summary ---
:1945 Author Organization [facility] Address [address] [place] [address] Care Team Providers Name Role Phone Yolanda Colón APRN, C.N.P. Primary Care Provider [phone] Encounter Details Date Type Department Care Team Description 07/02/2019 Orders Only Department of Family Yolanda Colón, Medicine in [place], AMBER, C. N.P. 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 [address] [place] [phone] (Wo rk) 02/14/2022 Office Visit Family Medicine Lilli Hearn M.D. [address] [place] [phone] (Wo rk) documented as of this encounter Visit Diagnoses Not on filedocumented in this encounter Additional Health Concerns Assessment Noted Time PHQ-9 Depression Total Score: 4 04/16/2019 10:58 AM CS T documented as of this encounter Care Teams Group Leader Semiconductor Testing Relationship Specialty Start Date End Date Yolanda Colón APRN, C.N.P. PCP - General 09/08/16 01/19/22 documented as of this encounter
--- OUTSIDE RECORDS SUMMARY | 2022-01-28 08:55 | XMS_ITS | Encounter Summary ---
:1945 Author Organization [facility] Address [address] [place] [address] Care Team Providers Name Role Phone Yolanda Colón APRN, C.N.P. Primary Care Provider [phone] Reason for Visit Reason Comments Med Refill Encounter Details Date Type Department Care Team Description 02/14/2020 Refill Department of Family Medicine Yolanda Colón APRN, Med Refill in [facility] lela C.N.P. 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 - 02/14/2020 11:32 AM FLUID DESIGNER Name of Medication(s) Needing Refill: SPIRONOLACT 50MG Additional Information: Last refill: 01/07/2020 Last Appointment: 01/14/2020 Future Appointment: No future appointments D DESIGNER documented in this encounter Plan of Treatment Upcoming Encounters Date Type Specialty Care Team Description 02/11/2022 Appointment Laboratory Medicine Neli Hearn M.D. [address] [place] [phone] (Wo rk) 02/14/2022 Office Visit Family Medicine Lilli Hearn M.D. [address] [place] [phone] (Wo rk) documented as of this encounter Visit Diagnoses Not on filedocumented in this encounter Additional Health Concerns Assessment Noted Time PHQ-9 Depression Total Score: 4 04/16/2019 10:58 AM CS T documented as of this encounter Care Teams Bottoming Machine Operator Relationship Specialty Start Date End Date Yolanda Colón APRN, C.N.P. PCP - General 09/08/16 01/19/22 documented as of this encounter
--- OUTSIDE RECORDS SUMMARY | 2022-01-28 08:55 | XMS_ITS | Encounter Summary ---
:1945 Author Organization [facility] Address [address] [place] [address] Care Team Providers Name Role Phone Yolanda Colón APRN, C.N.P. Primary Care Provider [phone] Reason for Visit Reason Comments Follow-up swelling continues~ Outpatient (Routine) - Closed Specialty Diagnoses / Procedures Referred By Contact Refer red To Contact Family Medicine Yolanda Colón APRN, [facility] C.N.P. [address] [place] [address] Referral ID Status Reason Start Date Expiration Date Visits Requ ested Visits Authorized [id number] Closed 01/07/2020 01/06/2021 1 1 Encounter Details Date Type Department Care Team Description 01/14/2020 Office Visit Department of Yolanda Craven ma Pedal Chronic Medicine la AMBER Hart, C.N.P. (Primary Dx) Terri Michael [address] [place] [phone] Social History Tobacco Use Types Packs/Day Years [...] or relatives? How often do you attend sabianist or 1 to 4 times per year 11/2019 orthodoxy services? Do you belong to any clubs or No 12/04/2019 organizations such as sabianist groups, [employer], [employer] or athletic groups, or school groups? 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 He states his swelling is [...] Appointment Laboratory Medicine Neli Hearn M.D. [address] [place] [address] (Wo rk) 02/14/2022 Office Visit Family Medicine Lilli Hearn M.D. 700 [facility] [place] [address] (Wo rk) documented as of this encounter Visit Diagnoses Diagnosis Edema Pedal Chronic - Primary documented in this encounter Additional Health Concerns Assessment Noted Time PHQ-9 Depression Total Score: 4 04/16/2019 10:58 AM CS T documented as of this encounter Care Teams Conference Services Coordinator Relationship Specialty Start Date End Date Yolanda Colón APRN, C.N.P. PCP - General 09/08/16 01/19/22 documented as of this encounter
--- OUTSIDE RECORDS SUMMARY | 2022-01-28 08:55 | XMS_ITS | Encounter Summary ---
:1945 Author Organization [facility] Address [address] [place] [address] Care Team Providers Name Role Phone Yolanda Colón APRN, C.N.P. Primary Care Provider [phone] Reason for Visit Reason Comments Med Refill Encounter Details Date Type Department Care Team Description 01/06/2020 Refill Department of Family Medicine Yolanda Colón APRN, Med Refill in [facility] lela C.N.P. 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 - 01/06/2020 1:57 PM CDT Medications Needing Refill: ompeprazole 20mg take 1 tab po daily Last Refilled:07/03/2018 Last Appointment:11/26/19 Future Appointment: 01/07/20 documented in this encounter Plan of Treatment Upcoming Encounters Date Type Specialty Care Team Description 02/11/2022 Appointment Laboratory Medicine Neli Hearn M.D. [address] [place] [phone] (Wo rk) 02/14/2022 Office Visit Family Medicine Lilli Hearn M.D. [address] [place] [phone] (Wo rk) documented as of this encounter Visit Diagnoses Not on filedocumented in this encounter Additional Health Concerns Assessment Noted Time PHQ-9 Depression Total Score: 4 04/16/2019 10:58 AM CS T documented as of this encounter Care Teams Tax Services Professional Relationship Specialty Start Date End Date Yolanda Colón APRN, C.N.P. PCP - General 09/08/16 01/19/22 documented as of this encounter
--- OUTSIDE RECORDS SUMMARY | 2022-01-28 08:55 | XMS_ITS | Encounter Summary ---
:1945 Author Organization [facility] Address [address] [place] [address] Care Team Providers Name Role Phone Yolanda Colón APRN, C.N.P. Primary Care Provider [phone] Reason for Referral Outpatient (Routine) - Closed Specialty Diagnoses / Procedures Referred By Contact Refer red To Contact Family Medicine Yolanda Colón APRN, [facility] C.N.P. [address] [place] [address] Referral ID Status Reason Start Date Expiration Date Visits Requ ested Visits Authorized [id number] Closed 01/07/2020 01/06/2021 1 1 utpatient (Routine) - Closed Specialty Diagnoses / Procedures Referred By Contact Refer red To Contact Diagnoses Edema Pedal Yolanda Colón APRN, C.N.P. [address] [place] [address] Referral ID Status Reason Start Date Expiration Date Visits Requ ested Visits Authorized [id number] Closed 01/07/2020 01/06/2021 1 1 Reason for Visit Reason Comments Edema Right lower leg edema and op en sore Encounter Details Date Type Department Care Team Description 01/07/2020 Office Visit Department of Yolanda Craven ma (Primary Dx); Medicine in M, CHOKE REAMER, C.N.P. 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 ??? [DISCONTINUED] qtrussoppqkgbvs-YJ-ucruPFRwbvw (ROBITUSSIN-PE) 30-10-100 mg/5 mL solution Take 10mL [...] the ultrasound results. - External referral ancillary (non-[place]) 3. Wound right lower extremity If I [...] Neli Hearn M.D. 700 [place] [phone] (Wo rk) 02/14/2022 Office Visit Family Medicine Lilli Hearn M.D. 700 [place] [phone] (Wo rk) Scheduled Referrals Name Type Priority Associated Diagnoses Order S [facility] Family Medicine Outpatient Referral Routine Expec deidre: [...] CDT eGFR-Black/Afric 89 >=60 01/07/2020 NPRG an Cypriot mL/min/BSA 8:09 PM CDT Comment: ----ADDITIONAL INFORMATION---- [...] Organization Address City/State/ZIP Code Phon e Number [facility]- [address] [place] [address] [address] [place] [address] [facility] [address] [place] documented in this encounter Visit Diagnoses Diagnosis Edema Pedal - Primary Hypertension Essential Primary Wound Lower Leg Open Initial Right documented in this encounter Additional Health Concerns Assessment Noted Time PHQ-9 Depression Total Score: 4 04/16/2019 10:58 AM CS T documented as of this encounter Care Teams Sommelier Relationship Specialty Start Date End Date Yolanda Colón APRN, C.N.P. PCP - General 09/08/16 01/19/22 documented as of this encounter
--- OUTSIDE RECORDS SUMMARY | 2022-01-28 08:55 | XMS_ITS | Encounter Summary ---
:1945 Author Organization [facility] Address [address] [place] [address] Care Team Providers Name Role Phone Yolanda Colón APRN, C.N.P. Primary Care Provider [phone] Reason for Visit Reason Comments Med Refill Encounter Details Date Type Department Care Team Description 09/28/2018 Refill Department of Family Medicine Yolanda Colón APRN, Med Refill in [facility] lela C.N.P. 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 - 09/28/2018 2:42 PM CDT Medications Needing Refill: Naproxen 500 mg Last Refilled: N/A Last Appointment: 08/21/18 for sinusitis; 04/11/18 for shoulder and wrist pain Future Appointment: N/A documented in this encounter Plan of Treatment Upcoming Encounters Date Type Specialty Care Team Description 02/11/2022 Appointment Laboratory Medicine Neil Hearn M.D. [address] [place] [address] (Wo rk) 02/14/2022 Office Visit Family Medicine Lilli Hearn M.D. [address] [place] [phone] (Wo rk) documented as of this encounter Visit Diagnoses Not on filedocumented in this encounter Additional Health Concerns Assessment Noted Time PHQ-9 Depression Total Score: 10 01/09/2018 10:48 AM C DT documented as of this encounter Care Teams Quitline Counselor Relationship Specialty Start Date End Date Yolanda Colón APRN, C.N.P. PCP - General 09/08/16 01/19/22 documented as of this encounter
--- OUTSIDE RECORDS SUMMARY | 2022-01-28 08:55 | XMS_ITS | Encounter Summary ---
:[address] [facility] Address [address] [place] [address] Care Team Providers Name Role Phone Yolanda Colón APRN, C.N.P. Primary Care Provider [phone] Encounter Details Date Type Department Care Team Description 07/16/2019 Clinical Communication Department of Yolanda Craven APRN, C.N.PJohnna Villalobos a [address] [place] [phone] Social History Tobacco Use Types Packs/Day Years [...] 1 to 4 times per year 11/2019 anabaptism services? 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 - 07/16/2019 1:25 PM CDT This encounter was created in error - please disregard. documented in this encounter Plan of Treatment Upcoming Encounters Date Type Specialty Care Team Description 02/11/2022 Appointment Laboratory Medicine Neli Hearn M.D. [address] [place] [phone] (Wo rk) 02/14/2022 Office Visit Family Medicine Lilli Hearn M.D. [address] [place] [phone] (Wo rk) documented as of this encounter Visit Diagnoses Not on filedocumented in this encounter Additional Health Concerns Assessment Noted Time PHQ-9 Depression Total Score: 4 04/16/2019 10:58 AM CS T documented as of this encounter Care Teams Claims Correspondence Clerk Relationship Specialty Start Date End Date Yolanda Colón APRN, C.N.P. PCP - General 09/08/16 01/19/22 documented as of this encounter
--- OUTSIDE RECORDS SUMMARY | 2022-01-28 08:55 | XMS_ITS | Encounter Summary ---
:1945 Author Organization [facility] Address [address] [place] [address] Care Team Providers Name Role Phone Yolanda Colón APRN, C.N.P. Primary Care Provider [phone] Reason for Referral Outpatient (Routine) - Closed Specialty Diagnoses / Procedures Referred By Contact Refer red To Contact Family Medicine Yolanda Colón APRN, [facility] S [facility] C.N.P. [address] [place] [address] Referral ID Status Reason Start Date Expiration Date Visits Requ ested Visits Authorized [id number] Closed 11/07/2019 11/06/2020 1 1 Scheduling Instructions Patient was asked to call and make an ap pt. Please call him if he has not called in after 11/26/2019. Available times only in [place]. RN schedule. Reason for Visit Reason Comments Communication Medicare Wellness Visit Encounter Details Date Type Department Care Team Description 11/07/2019 Clinical Communication Department of [facility], Wendy garcia Family Medicine in A, R.N. (Medicare Wellness [facility], [address] [facility] Visit) [place], [place] [address] [place] [address] [place], [place] [phone] (Work) [phone] Social History Tobacco Use Types Packs/Day Years [...] 12/04/2019 organizations such as bahai groups, unions, fraYipit or athletic groups, or school groups? 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 - 11/07/2019 1:32 PM CDT ID'd as [employer]. Message left encouraging Mr. Macdonald to call and make an appt for his Medicare Wellness Visit. Contact information left. Order placed. documented in this encounter Plan of Treatment Upcoming Encounters Date Type Specialty Care Team Description 02/11/2022 Appointment Laboratory Medicine Neli Hearn M.D. [address] [place] [phone] (Stephon caldera) 02/14/2022 Office Visit Family Medicine Lilli Hearn M.D. [address] [place] [address] (Stephon caldera) Scheduled Referrals Name Type Priority Associated Diagnoses Order S [facility] Family Medicine Outpatient Referral Routine Expec deidre: nurse visit 12/08/2019 (clinic) (Approximate), Expires: 11/06/2022 documented as of this encounter Visit Diagnoses Not on filedocumented in this encounter Additional Health Concerns Assessment Noted Time PHQ-9 Depression Total Score: 4 04/16/2019 10:58 AM CS T documented as of this encounter Care Teams Apartment Maintenance Supervisor Relationship Specialty Start Date End Date Yolanda Colón APRN, C.N.P. PCP - General 09/08/16 01/19/22 documented as of this encounter
--- OUTSIDE RECORDS SUMMARY | 2022-01-28 08:55 | XMS_ITS | Encounter Summary ---
:1945 Author Organization [facility] Address [address] [place] [address] Care Team Providers Name Role Phone Yolanda Colón APRN, C.N.P. Primary Care Provider [phone] Reason for Visit Reason Comments Med Refill Encounter Details Date Type Department Care Team Description 03/12/2019 Refill Department of Family Medicine Yolanda Colón APRN, Med Refill in [facility] lela C.N.P. 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 - 03/12/2019 2:38 PM CST Patient is due to be seen, hypertension not addressed for over a year. TAL MEDIA BUYER documented in this encounter Plan of Treatment Upcoming Encounters Date Type Specialty Care Team Description 02/11/2022 Appointment Laboratory Medicine Neli Hearn M.D. [address] [place] [phone] (Wo rk) 02/14/2022 Office Visit Family Medicine Lilli Hearn M.D. [address] [place] [phone] (Wo rk) documented as of this encounter Visit Diagnoses Not on filedocumented in this encounter Additional Health Concerns Assessment Noted Time PHQ-9 Depression Total Score: 10 01/09/2018 10:48 AM C DT documented as of this encounter Care Teams Bottom Hoop Driver Relationship Specialty Start Date End Date Yolanda Colón APRN, C.N.P. PCP - General 09/08/16 01/19/22 documented as of this encounter
--- OUTSIDE RECORDS SUMMARY | 2022-01-28 08:55 | XMS_ITS | Encounter Summary ---
:1945 Author Organization [facility] Address [address] [place] [address] Care Team Providers Name Role Phone Yolanda Colón APRN, C.N.P. 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 [address] [place] [address] (Wo rk) 02/14/2022 Office Visit Family Medicine Lilli Hearn M.D. [address] [place] [phone] (Wo rk) documented as of this encounter Visit Diagnoses Diagnosis Elevated Glucose - Primary documented in this encounter Additional Health Concerns Assessment Noted Time PHQ-9 Depression Total Score: 4 04/16/2019 10:58 AM CS T documented as of this encounter Care Teams Acquisitions Editor Relationship Specialty Start Date End Date Yolanda Colón APRN, C.N.P. PCP - General 09/08/16 01/19/22 documented as of this encounter
--- OUTSIDE RECORDS SUMMARY | 2022-01-28 08:55 | XMS_ITS | Encounter Summary ---
:1945 Author Organization [facility] Address [address] [place] [address] Care Team Providers Name Role Phone Yolanda Colón APRN, C.N.P. Primary Care Provider [phone] Reason for Visit Reason Comments Follow-up leg edema Outpatient (Routine) - Closed Specialty Diagnoses / Procedures Referred By Contact Refer red To Contact Family Medicine Diagnoses Edema Leg Hypertension Essential Primary Meri Estevez APRN, [facility] C.N.P. [address] [place] [address] Referral ID Status Reason Start Date Expiration Date Visits Requ ested Visits Authorized [id number] Closed 11/12/2019 11/11/2020 1 1 Encounter Details Date Type Department Care Team Description 11/26/2019 Office Visit Department of Family Yolanda Colón ma Leg; Medicine ame Hart APRN, C.N.P. Hypertension Essential Primary [facility] [address] [place] [phone] Social History Tobacco Use Types Packs/Day Years [...] No 12/04/2019 organizations such as mandaeism groups, [employer], fraOpenSpirit or athletic groups, or school groups? 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 ??? chenzdcplrqxoqk-VQ-mnwvZZLuddl (ROBITUSSIN-PE) 30-10-100 mg/5 mL solution Take 10 [...] Appointment Laboratory Medicine Neli Hearn M.D. [address] [place] [phone] (Wo rk) 02/14/2022 Office Visit Family Medicine Lilli Hearn M.D. [address] [place] [phone] (Stephon rk) documented as of this encounter Visit Diagnoses Diagnosis Edema Leg Hypertension Essential Primary documented in this encounter Additional Health Concerns Assessment Noted Time PHQ-9 Depression Total Score: 4 04/16/2019 10:58 AM CS T documented as of this encounter Care Teams Bar Helper Relationship Specialty Start Date End Date Yolanda Colón APRN, C.N.P. PCP - General 09/08/16 01/19/22 documented as of this encounter
--- OUTSIDE RECORDS SUMMARY | 2022-01-28 08:56 | XMS_ITS | Encounter Summary ---
:1945 Author Organization [facility] Address [address] [place] [address] Care Team Providers Name Role Phone Yolanda Colón APRN, C.N.P. Primary Care Provider [phone] Reason for Visit Reason Comments Sinusitis all winter on and off, last 2 weeks have been worse Conjunctivitis Appointment Request (Routine) - Closed Specialty Diagnoses / Procedures Referred By Contact Refer red To Contact Family Medicine Referral ID Status Reason Start Date Expiration Date Visits Requ ested Visits Authorized [id number] Closed 08/21/2018 08/21/2019 1 1 Encounter Details Date Type Department Care Team Description 08/21/2018 Office Visit Department of Yolanda Craven usitis Acute Medicine in AMBER Hart, C.N.P. 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 Vhtw-noe-hhckbcr analgesics for discomfort. Recommended increased fluid intake. Call or return if no symptom improvement in the next 5-7 days. He voices understanding and is in agreement with this plan. documented in this encounter Plan of Treatment Upcoming Encounters Date Type Specialty Care Team Description 02/11/2022 Appointment Laboratory Medicine Neli Hearn M.D. [address] [phone] (Wo rk) 02/14/2022 Office Visit Family Medicine Lilli Hearn M.D. [address] [place] [phone] (Wo rk) documented as of this encounter Visit Diagnoses Diagnosis Sinusitis Acute - Primary documented in this encounter Additional Health Concerns Assessment Noted Time PHQ-9 Depression Total Score: 10 01/09/2018 10:48 AM C DT documented as of this encounter Care Teams Scaffold Setter Relationship Specialty Start Date End Date Yolanda Colón APRN, C.N.P. PCP - General 09/08/16 01/19/22 documented as of this encounter
--- OUTSIDE RECORDS SUMMARY | 2022-01-28 08:56 | XMS_ITS | Encounter Summary ---
:1945 Author Organization [facility] Address [address] [place] [address] Care Team Providers Name Role Phone Yolanda Colón APRN, C.N.P. Primary Care Provider [phone] Reason for Visit Reason Comments Med Refill Encounter Details Date Type Department Care Team Description 02/26/2018 Refill Department of Family Medicine Yolanda Colón APRN, Med Refill in [facility] lela C.N.P. 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 - 02/27/2018 8:20 AM CST Patient last seen for preop carpal tunnel but hypertension has not been addressed since 02/16/16. Due to be seen. MAKER documented in this encounter Plan of Treatment Upcoming Encounters Date Type Specialty Care Team Description 02/11/2022 Appointment Laboratory Medicine Neli Hearn M.D. [address] [place] [phone] (Wo rk) 02/14/2022 Office Visit Family Medicine Lilli Hearn M.D. [address] [place] [phone] (Wo rk) documented as of this encounter Visit Diagnoses Not on filedocumented in this encounter Additional Health Concerns Assessment Noted Time PHQ-9 Depression Total Score: 10 01/09/2018 10:48 AM C DT documented as of this encounter Care Teams Pumper Gager Apprentice Relationship Specialty Start Date End Date Yolanda Colón APRN, C.N.P. PCP - General 09/08/16 01/19/22 documented as of this encounter
--- OUTSIDE RECORDS SUMMARY | 2022-01-28 08:56 | XMS_ITS | Encounter Summary ---
:[address] [facility] Address [address] [place] [address] Care Team Providers Name Role Phone Yolanda Colón APRN, C.N.P. Primary Care Provider [phone] Reason for Visit Reason Comments Med Refill Encounter Details Date Type Department Care Team Description 02/13/2018 Refill Department of Family Medicine Yolanda Colón APRN, Med Refill in [facility] lela C.N.P. [address] [place], [place] [phone] [place] [phone] (Wo rk) Social History Tobacco Use Types [...] at Date Recorded Male 04/20/2021 3:[address] BAILIFF OR SHERIFF documented as of this encounter Miscellaneous Notes Telephone Encounter - Torri Rolle R.N. - 02/13/2018 3:27 PM CST Last office visit 01/09/2018 T BAILIFF OR SHERIFF documented in this encounter Plan of Treatment Upcoming Encounters Date Type Specialty Care Team Description 02/11/2022 Appointment Laboratory Medicine Neli Hearn M.D. [address] [place] [phone] (Wo rk) 02/14/2022 Office Visit Family Medicine Lilli Hearn M.D. [address] [place] [phone] (Wo rk) documented as of this encounter Visit Diagnoses Not on filedocumented in this encounter Additional Health Concerns Assessment Noted Time PHQ-9 Depression Total Score: 10 01/09/2018 10:48 AM C DT documented as of this encounter Care Teams Pickle Sorter Relationship Specialty Start Date End Date Yolanda Colón APRN, C.N.P. PCP - General 09/08/16 01/19/22 documented as of this encounter
--- OUTSIDE RECORDS SUMMARY | 2022-01-28 08:56 | XMS_ITS | Encounter Summary ---
:1945 Author Organization [facility] Address [address] [place] [address] Care Team Providers Name Role Phone Yolanda Colón APRN, C.N.P. Primary Care Provider [phone] Reason for Visit Reason Comments Med Refill Encounter Details Date Type Department Care Team Description 03/14/2018 Refill Department of Family Medicine Yolanda Colón APRN, Med Refill in [facility] lela C.N.P. 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 - 03/14/2018 4:11 PM CST Preop physical on 01/09/18 ATOR MECHANIC APPRENTICE documented in this encounter Plan of Treatment Upcoming Encounters Date Type Specialty Care Team Description 02/11/2022 Appointment Laboratory Medicine Neli Hearn M.D. [address] [place] [phone] (Wo rk) 02/14/2022 Office Visit Family Medicine Lilli Hearn M.D. [address] [place] [phone] (Wo rk) documented as of this encounter Visit Diagnoses Not on filedocumented in this encounter Additional Health Concerns Assessment Noted Time PHQ-9 Depression Total Score: 10 01/09/2018 10:48 AM C DT documented as of this encounter Care Teams Compensation Supervisor Relationship Specialty Start Date End Date Yolanda Colón APRN, C.N.P. PCP - General 09/08/16 01/19/22 documented as of this encounter
--- OUTSIDE RECORDS SUMMARY | 2022-01-28 08:56 | XMS_ITS | Encounter Summary ---
:1945 Author Organization [facility] Address [address] [place] [address] Care Team Providers Name Role Phone Yolanda Colón APRN, C.N.P. Primary Care Provider [phone] Encounter Details Date Type Department Care Team Description 12/27/2017 Diagnostic Department of Neurology Yolanda Colón Carpal Tunnel Syndrome in [facility] AMBER Hart, C.N.P. 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 [address] [place] [phone] (Wo rk) 02/14/2022 Office Visit Family Medicine Lilli Hearn M.D. [address] [place] [facility] [place] [phone] (Wo rk) documented as of this encounter [...] Bilateral documented in this encounter Care Teams Improvement Engineer Relationship Specialty Start Date End Date Yolanda Colón APRN, C.N.P. PCP - General 09/08/16 01/19/22 documented as of this encounter
--- OUTSIDE RECORDS SUMMARY | 2022-01-28 08:56 | XMS_ITS | Encounter Summary ---
:1945 Author Organization [facility] Address [address] [place] [address] Care Team Providers Name Role Phone Yolanda Colón APRN, C.N.P. 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 [address] [place] [facility] [place] [address] (Wo rk) 02/14/2022 Office Visit Family Medicine Lilli Hearn M.D. [address] [place] [facility] [place] [address] (Wo rk) documented as of this encounter Visit Diagnoses Not on filedocumented in this encounter Additional Health Concerns Assessment Noted Time PHQ-9 Depression Total Score: 10 01/09/2018 10:48 AM C DT documented as of this encounter Care Teams Machine Lead Burner Relationship Specialty Start Date End Date Yolanda Colón APRN, C.N.P. PCP - General 09/08/16 01/19/22 documented as of this encounter
--- OUTSIDE RECORDS SUMMARY | 2022-01-28 08:56 | XMS_ITS | Encounter Summary ---
:1945 Author Organization [facility] Address [address] [place] [address] Care Team Providers Name Role Phone Yolanda Colón APRN, C.N.P. Primary Care Provider [phone] Reason for Visit Reason Comments Shoulder Pain right shoulder and wrist Wrist Pain Appointment Request (Routine) - Closed Specialty Diagnoses / Procedures Referred By Contact Refer red To Contact Family Medicine Referral ID Status Reason Start Date Expiration Date Visits Requ ested Visits Authorized [id number] Closed 04/09/2018 04/09/2019 1 1 Encounter Details Date Type Department Care Team Description 04/11/2018 Office Visit Department of Yolanda Craven Shoulder Right (Primary Dx); Medicine in AMBER Hart, C.N.PFamilia Anxiety [facility] a [address] [place] [address] [phone] Social History Tobacco Use Types Packs/Day Years [...] at Date Recorded 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 documented as of this encounter Last Filed Vital Signs Vital Sign Reading Time Taken Comments Blood Pressure 152/78 04/11/2018 11:04 AM TRAVEL ACCOMMODATION INSPECTOR Pulse 98 04/11/2018 11:04 AM TRAVEL ACCOMMODATION INSPECTOR Temperature 37.4 ??C (99.3 ??F) 04/11/2018 11:04 AM TRAVEL ACCOMMODATION INSPECTOR Respiratory Rate - - Oxygen Saturation 93% 04/11/2018 11:04 AM TRAVEL ACCOMMODATION INSPECTOR Inhaled Oxygen Concentration - - Weight 149 kg (328 lb) 04/11/2018 11:04 AM TRAVEL ACCOMMODATION INSPECTOR Height - - Body Mass Index 48.03 01/09/2018 10:31 AM CDT documented in this encounter Progress Notes Yolanda Colón, AMEBR, C.N.P. - 04/11/2018 11:15 AM CST SUBJECTIVE [...] was advised and eating a well-balanced diet. EL ACCOMMODATION INSPECTOR documented in this encounter Plan of Treatment Upcoming Encounters Date Type Specialty Care Team Description 02/11/2022 Appointment Laboratory Medicine Neli Hearn M.D. [address] [place] [phone] (Wo rk) 02/14/2022 Office Visit Family Medicine Lilli Hearn M.D. [address] [place] [phone] (Wo rk) documented as of this encounter Visit Diagnoses Diagnosis Bursitis Shoulder Right - Primary Anxiety documented in this encounter Additional Health Concerns Assessment Noted Time PHQ-9 Depression Total Score: 10 01/09/2018 10:48 AM C DT documented as of this encounter Care Teams Paint Spraying Machine Operator Helper Relationship Specialty Start Date End Date Yolanda Colón APRN, C.N.P. PCP - General 09/08/16 01/19/22 documented as of this encounter
--- OUTSIDE RECORDS SUMMARY | 2022-01-28 08:56 | XMS_ITS | Encounter Summary ---
:1945 Author Organization [facility] Address [address] [place] [address] Care Team Providers Name Role Phone Yolanda Colón APRN, C.N.P. 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 [address] [place] [address] (Wo rk) 02/14/2022 Office Visit Family Medicine Lilli Hearn M.D. [address] [place] [address] (Wo rk) documented as of this encounter Visit Diagnoses Not on filedocumented in this encounter Additional Health Concerns Assessment Noted Time PHQ-9 Depression Total Score: 10 01/09/2018 10:48 AM C DT documented as of this encounter Care Teams Silk Screen Printer Machine Relationship Specialty Start Date End Date Yolanda Colón APRN, C.N.P. PCP - General 09/08/16 01/19/22 documented as of this encounter
--- OUTSIDE RECORDS SUMMARY | 2022-01-28 08:56 | XMS_ITS | Encounter Summary ---
:1945 Author Organization [facility] Address [address] [place] [address] Care Team Providers Name Role Phone Yolanda Colón APRN, C.N.P. Primary Care Provider [phone] Reason for Visit Reason Comments Follow-up cellulitis Appointment Request (Routine) - Closed Specialty Diagnoses / Procedures Referred By Contact Refer red To Contact Family Medicine Referral ID Status Reason Start Date Expiration Date Visits Requ ested Visits Authorized [id number] Closed 11/28/2017 11/28/2018 1 Encounter Details Date Type Department Care Team Description 11/28/2017 Office Visit Department of [facility] Meri Estevez Cell ulitis Leg Right (Primary Dx); Medicine in AMBER, C.N.P. 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 [address] [place] [facility] [place] [phone] (Stephon caldera) 02/14/2022 Office Visit Family Medicine Lilli Hearn M.D. [address] [place] [facility] [place] [phone] (Stephon caldera) documented as of this encounter Visit Diagnoses Diagnosis Cellulitis Leg Right - Primary Wound Lower Leg Open Initial Right documented in this encounter Care Teams Electron Beam Welder Relationship Specialty Start Date End Date Yolanda Colón APRN, C.N.P. PCP - General 09/08/16 01/19/22 documented as of this encounter
--- OUTSIDE RECORDS SUMMARY | 2022-01-28 08:56 | XMS_ITS | Encounter Summary ---
:1945 Author Organization [facility] Address [address] [place] [address] Care Team Providers Name Role Phone Yolanda Colón APRN, C.N.P. Primary Care Provider [phone] Reason for Visit Reason Comments Pre-op Exam Lt Carpal tunnel surgery Dr Familia Rizo at the [facility] on 01/18 Anxiety Encounter Details Date Type Department Care Team Description 01/09/2018 Office Visit Department of Yolanda Craven Pre operative Exam (Primary Dx); Medicine in [place]AM[place], C.N.P. 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 Rizo at the [facility] on 01/18 ??? Anxiety HISTORY OF PRESENT ILLNESS Cristi Macdonald is a 72 y.o. male who presents for a preoperative evaluation. He is scheduled for a Left carpal tunnel repair on 01/16/[address] Campoverde at [facility]. He has has current concerns of increasing [...] masses, tenderness, ororganomegaly noted on palpation. Extremities: [place] and warm. No edema. Neuro: Gait is [...] Appointment Laboratory Medicine Neli Hearn M.D. [address] [place] [phone] (Wo rk) 02/14/2022 Office Visit Family Medicine Lilli Hearn M.D. [address] [place] [phone] (Wo verenice) documented as of this encounter [...] A1c, 6.8 (H) 4.2 - 5.6 01/09/2018 [facility] B % 4:25 PM CDT [facility] Comment: Hemoglobin A1c values greater than [...] Venous) AM CDT PM CDT Linda Villatoro APRNNFamiliaP. LAB BLOOD ADD-ON Performing Organization Address City/State/ZIP Code Phon e Number [facility] [address] [place] [address] [place] Basic Metabolic Panel (01/09/2018 11:11 AM CDT) P athologist Signature Potassium, S 4.0 3.6 - 5.2 01/09/2018 [facility] mmol/L 4:33 PM [facility] Sodium, S 139 135 - 145 01/09/2018 [facility] mmol/L 4:33 PM [facility] Chloride, S 99 98 - 107 01/09/2018 [facility] mmol/L 4:33 PM [facility] Bicarbonate, S 27 22 - 29 01/09/2018 [facility] mmol/L 4:33 PM [facility] Anion Gap 13 7 - 15 01/09/2018 [facility] 4:33 PM [facility] BUN (Blood Urea 19 8 - 24 01/09/2018 [facility] Nitrogen), S mg/dL 4:33 PM [facility] Creatinine 0.92 0.74 - 01/09/2018 [facility] 1.35 mg/dL 4:33 PM [facility] eGFR-Non 84 >=60 01/09/2018 [facility] Black/ mL/min/BSA 4:33 PM [facility] Comment: ----ADDITIONAL INFORMATION---- Estimated GFR calculated using the 2009 CKD_EPI creatinine equation. eGFR-Black/ >90 >=60 mL/min/BSA 2017 4:33 PM [facility] Comment: ----ADDITIONAL INFORMATION---- Estimated GFR calculated using the 2009 CKD_EPI creatinine equation. Calcium, Total, S 9.9 8.8 - 10.2 mg/dL 01/09/2018 4 :33 PM CDT [facility] Glucose, S 134 70 - 140 mg/dL 01/09/2018 4:33 PM CDT [facility] [place] Specimen Anatomical Collection Method Collection Time Receive d Time (Source) Location / / Volume Laterality Blood (Blood, 01/09/2018 11:11 01/09/2018 3:49 Venous) AM CDT PM CDT Yolanda Colón APRN, C.N.P. LAB BLOOD ADD-ON Performing Organization Address City/State/ZIP Code Phon e Number [place] [address] [place], [place] [phone] [place] [address] LAB documented in this encounter Visit Diagnoses Diagnosis Preoperative Exam - Primary Carpal Tunnel Syndrome Left Anxiety Impaired Fasting Glucose documented in this encounter Additional Health Concerns Assessment Noted Time PHQ-9 Depression Total Score: 10 01/09/2018 10:48 AM C DT documented as of this encounter Care Teams Field Marketing Specialist Relationship Specialty Start Date End Date Yolanda Colón APRN, C.N.P. PCP - General 09/08/16 01/19/22 documented as of this encounter
--- OUTSIDE RECORDS SUMMARY | 2022-01-28 08:56 | XMS_ITS | Encounter Summary ---
:1945 Author Organization [facility] Address [address] [place] [address] Care Team Providers Name Role Phone Yolanda Colón APRN, C.N.P. 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 - 01/01/2018 12:55 PM CDT done Telephone Encounter - Torri Terry - 01/01/2018 11:52 AM CDT Medhat is calling in again to today to get the status of the test results needed for his upcoming surgery 01/03/2018. Please call [phone] Roslyn rendon Telephone Encounter - Tammy Gilman, [...] help you with today? The hospital in [place] is to be sending over EMG results to the clinic. He needs these for an appointment Jan 03 at the [facility]. Please call when the records are ready to be picked up. I will send this information to the appropriate staff member who will look into your concern. Is there anything else I can help you with today? Thank you for calling [facility]. documented in this encounter Plan of Treatment Upcoming Encounters Date Type Specialty Care Team Description 02/11/2022 Appointment Laboratory Medicine Neli Hearn M.D. [address] [place] [phone] (Wo rk) 02/14/2022 Office Visit Family Medicine Lilli Hearn M.D. [address] [place] [address] (Wo rk) documented as of this encounter Visit Diagnoses Not on filedocumented in this encounter Care Teams Assignment Desk Assistant Relationship Specialty Start Date End Date Yolanda Colón APRN, C.N.P. PCP - General 09/08/16 01/19/22 documented as of this encounter
--- OUTSIDE RECORDS SUMMARY | 2022-01-28 08:56 | XMS_ITS | Encounter Summary ---
:1945 Author Organization [facility] Address [address] [place] [address] Care Team Providers Name Role Phone Yolanda Colón APRN, C.N.P. Primary Care Provider [phone] Reason for Visit Reason Comments Med Refill Encounter Details Date Type Department Care Team Description 09/03/2018 Refill Department of Family Medicine Yolanda Colón APRN, Med Refill in [facility] lela C.N.P. [address] [place], [place] [phone] [place] [phone] (Wo rk) Social History Tobacco Use Types [...] or relatives? How often do you attend yazdanism or 1 to 4 times per year 11/2019 sikhism services? 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 - 09/03/2018 2:24 PM CDT Last seen in clinic 08/21/2018 documented in this encounter Plan of Treatment Upcoming Encounters Date Type Specialty Care Team Description 02/11/2022 Appointment Laboratory Medicine Neli Hearn M.D. [address] [place] [phone] (Wo rk) 02/14/2022 Office Visit Family Medicine Lilli Hearn M.D. [address] [place] [phone] (Wo rk) documented as of this encounter Visit Diagnoses Not on filedocumented in this encounter Additional Health Concerns Assessment Noted Time PHQ-9 Depression Total Score: 10 01/09/2018 10:48 AM C DT documented as of this encounter Care Teams Interstate Bus Driver Relationship Specialty Start Date End Date Yolanda Colón APRN, C.N.P. PCP - General 09/08/16 01/19/22 documented as of this encounter
--- OUTSIDE RECORDS SUMMARY | 2022-01-28 08:56 | XMS_ITS | Encounter Summary ---
:1945 Author Organization [facility] Address [address] [place] [address] Care Team Providers Name Role Phone Yolanda Colón APRN, C.N.P. Primary Care Provider [phone] Reason for Visit Reason Comments Med Refill Encounter Details Date Type Department Care Team Description 07/03/2018 Refill Department of Family Medicine Yolanda Colón APRN, Med Refill in [facility] lela C.N.P. 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 - 07/03/2018 3:26 PM CDT Last seen in clinic 01/09/2018 documented in this encounter Plan of Treatment Upcoming Encounters Date Type Specialty Care Team Description 02/11/2022 Appointment Laboratory Medicine Neli Hearn M.D. [address] [place] [phone] (Wo rk) 02/14/2022 Office Visit Family Medicine Lilli Hearn M.D. [address] [place] [phone] (Wo rk) documented as of this encounter Visit Diagnoses Not on filedocumented in this encounter Additional Health Concerns Assessment Noted Time PHQ-9 Depression Total Score: 10 01/09/2018 10:48 AM C DT documented as of this encounter Care Teams Well Drill Operator Helper Cable Tool Relationship Specialty Start Date End Date Yolanda Colón APRN, C.N.P. PCP - General 09/08/16 01/19/22 documented as of this encounter
--- OUTSIDE RECORDS SUMMARY | 2022-01-28 08:56 | XMS_ITS | Encounter Summary ---
:1945 Author Organization [facility] Address [address] [place] [address] Care Team Providers Name Role Phone Yolanda Colón APRN, C.N.P. Primary Care Provider [phone] Reason for Visit Reason Comments Med Refill Encounter Details Date Type Department Care Team Description 06/12/2018 Refill Department of Family Medicine Yolanda Colón APRN, Med Refill in [facility] lela C.N.P. 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 - 06/12/2018 10:22 AM CDT Patient seen last in clinic on 12/29/17 for pre-op. Is due to be seen for med management. documented in this encounter Plan of Treatment Upcoming Encounters Date Type Specialty Care Team Description 02/11/2022 Appointment Laboratory Medicine Neli Hearn M.D. [address] [place] [phone] (Wo rk) 02/14/2022 Office Visit Family Medicine Lilli Hearn M.D. [address] [place] [phone] (Wo rk) documented as of this encounter Visit Diagnoses Not on filedocumented in this encounter Additional Health Concerns Assessment Noted Time PHQ-9 Depression Total Score: 10 01/09/2018 10:48 AM C DT documented as of this encounter Care Teams Industrial Gas Servicer Helper Relationship Specialty Start Date End Date Yolanda Colón APRN, C.N.P. PCP - General 09/08/16 01/19/22 documented as of this encounter
--- OUTSIDE RECORDS SUMMARY | 2022-01-28 08:56 | XMS_ITS | Encounter Summary ---
:1945 Author Organization [facility] Address [address] [place] [address] Care Team Providers Name Role Phone Yolanda Colón APRN, C.N.P. Primary Care Provider [phone] Reason for Visit Reason Comments Med Refill Encounter Details Date Type Department Care Team Description 05/28/2018 Refill Department of Family Medicine Yolanda Colón APRN, Med Refill in [facility] lela C.N.P. [address] [place], [place] [phone] [place] [phone] (Wo rk) Social History Tobacco Use Types [...] or relatives? How often do you attend lutheran or 1 to 4 times per year 11/2019 mormon services? 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 - 05/28/2018 4:07 PM CST Last seen in clinic 04/11/2018 OR DENTIST documented in this encounter Plan of Treatment Upcoming Encounters Date Type Specialty Care Team Description 02/11/2022 Appointment Laboratory Medicine Neli Hearn M.D. [address] [place] [phone] (Wo rk) 02/14/2022 Office Visit Family Medicine Lilli Hearn M.D. [address] [place] [address] (Wo rk) documented as of this encounter Visit Diagnoses Not on filedocumented in this encounter Additional Health Concerns Assessment Noted Time PHQ-9 Depression Total Score: 10 01/09/2018 10:48 AM C DT documented as of this encounter Care Teams Litigation Legal Secretary Relationship Specialty Start Date End Date Yolanda Colón APRN, C.N.P. PCP - General 09/08/16 01/19/22 documented as of this encounter
--- OUTSIDE RECORDS SUMMARY | 2022-01-28 08:56 | XMS_ITS | Encounter Summary ---
:1945 Author Organization [facility] Address [address] [place] [address] Care Team Providers Name Role Phone Yolanda Colón APRN, C.N.P. Primary Care Provider [phone] Reason for Visit Reason Comments Med Refill Encounter Details Date Type Department Care Team Description 04/28/2018 Refill Department of Family Medicine Yolanda Colón APRN, Med Refill in [facility] lela C.N.P. 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 [address] [place] [phone] (Wo rk) 02/14/2022 Office Visit Family Medicine Lilli Hearn M.D. [address] [place] [phone] (Wo rk) documented as of this encounter Visit Diagnoses Not on filedocumented in this encounter Additional Health Concerns Assessment Noted Time PHQ-9 Depression Total Score: 10 01/09/2018 10:48 AM C DT documented as of this encounter Care Teams Day Care Teacher Relationship Specialty Start Date End Date Yolanda Colón APRN, C.N.P. PCP - General 09/08/16 01/19/22 documented as of this encounter
--- OUTSIDE RECORDS SUMMARY | 2022-01-28 08:57 | XMS_ITS | Encounter Summary ---
:1945 Author Organization [facility] Address [address] [place] [address] Care Team Providers Name Role Phone Yolanda Colón APRN, C.N.P. 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 [facility] [place] [address] (Wo rk) 02/14/2022 Office Visit Family Medicine Lilli Hearn M.D. [address] [place] [phone] (Wo rk) documented as of this encounter Visit Diagnoses Not on filedocumented in this encounter Care Teams Retread Operator Relationship Specialty Start Date End Date Yolanda Colón APRN, C.N.P. PCP - General 09/08/16 01/19/22 documented as of this encounter
--- OUTSIDE RECORDS SUMMARY | 2022-01-28 08:57 | XMS_ITS | Encounter Summary ---
:1945 Author Organization [facility] Address [address] [place] [address] Care Team Providers Name Role Phone Yolanda Colón APRN, C.N.P. Primary Care Provider [phone] Encounter Details Date Type Department Care Team Description 11/28/2017 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 [address] [place] [phone] (Wo rk) 02/14/2022 Office Visit Family Medicine Lilli Hearn M.D. [address] [place] [phone] (Wo rk) documented as of this encounter Visit Diagnoses Not on filedocumented in this encounter Care Teams Cylinder Devalver Relationship Specialty Start Date End Date Yolanda Colón APRN, C.N.P. PCP - General 09/08/16 01/19/22 documented as of this encounter
--- OUTSIDE RECORDS SUMMARY | 2022-01-28 08:57 | XMS_ITS | Encounter Summary ---
:1945 Author Organization [facility] Address [address] [place] [address] Care Team Providers Name Role Phone Yolanda Colón APRN, C.N.P. Primary Care Provider [phone] Reason for Referral Outpatient (Routine) - Closed Specialty Diagnoses / Procedures Referred By Contact Refer red To Contact Family Medicine Yolanda Colón APRN, [facility] C.N.P. [address] [place] [address] Referral ID Status Reason Start Date Expiration Date Visits Requ ested Visits Authorized [id number] Closed 11/21/2017 11/21/2018 1 1 Scheduling Instructions Lesion removal on left eyelid utpatient (Routine) - Closed Specialty Diagnoses / Procedures Referred By Contact Refer red To Contact Diagnoses Carpal Tunnel Syndrome Bilateral Yolanda Colón Muench, Clinton A, M. D. APRN, C.N.P. [address] [facility] [address] [place] [address] [place], [place] Phone: [phone] [facility] [phone] Referral ID Status Reason Start Date Expiration Visits Visits Date Requested Authorized [id number] Closed Patient 11/21/2017 11/21/2018 1 1 Preference Reason for Visit Reason Comments Carpal Tunnel Lt. Skin Tag Rt. eye Appointment Request (Routine) - Closed Specialty Diagnoses / Procedures Referred By Contact Refer red To Contact Family Medicine Referral ID Status Reason Start Date Expiration Date Visits Requ ested Visits Authorized [id number] Closed 11/13/2017 11/13/2018 1 1 Encounter Details Date Type Department Care Team Description 11/21/2017 Office Visit Department of Family Yolanda Colón Car pal Tunnel Syndrome Bilateral (Primary Dx); Medicine in [place], CENTRAL SUPPLY TECHNICIAN SUPERVISOR, C.N.P. 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 - 11/21/2017 2:30 PM CDT SUBJECTIVE CHIEF [...] EMG was ordered and consult to the [facility] was made per patient request. He will continue to wear his braces. Anti-inflammatories and steroid therapy was also reviewed with patient but he declined wanting to use these at this time. - External referral physician (non-[place]) - EMG; Future 2. Cellulitis Doxycycline 100 [...] Laboratory Medicine Neli Hearn M.D. [address] [place] [phone] (Wo rk) 02/14/2022 Office Visit Family Medicine Lilli Hearn M.D. [address] [place] [phone] (Wo rk) Scheduled Referrals Name Type Priority Associated Diagnoses Order S [facility] Family Medicine Outpatient Referral Routine Expec [...] Bilateral documented in this encounter Care Teams Raisin Washer Relationship Specialty Start Date End Date Yolanda Colón APRN, C.N.P. PCP - General 09/08/16 01/19/22 documented as of this encounter
--- OUTSIDE RECORDS SUMMARY | 2022-01-28 08:57 | XMS_ITS | Encounter Summary ---
:1945 Author Organization [facility] Address [address] [place] [address] Care Team Providers Name Role Phone Yolanda Colón APRN, C.N.P. 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 [address] [place] [phone] (Wo rk) 02/14/2022 Office Visit Family Medicine Lilli Hearn M.D. [address] [place] [phone] (Wo rk) documented as of this encounter Visit Diagnoses Not on filedocumented in this encounter Care Teams Supervisor Decorating Relationship Specialty Start Date End Date Yolanda Colón APRN, C.N.P. PCP - General 09/08/16 01/19/22 documented as of this encounter
--- OUTSIDE RECORDS SUMMARY | 2022-01-28 08:57 | XMS_ITS | Encounter Summary ---
:1945 Author Organization [facility] Address [address] [place] [address] Care Team Providers Name Role Phone Unavailable Primary Care Provider Unavailable Encounter Details Date Type Department Care Team Description 08/15/2016 Hospital Encounter HX [facility] Wendy Ríos, AMBER, C.N.P. 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 MRI at [facility] 06/01/2016- he has some pnjo-oj-jjiaciaz disc desiccation and annular bulging, canal stenosis [...] narcotics were provided today. He can use wkhk-eax-ffjwrbj analgesics for his discomfort. Recommended ice and [...] should develop. Electronically Signed By: YOLANDA COLÓN TANK CAR INSPECTOR On: 08/15/2016 11:14 AM Modified by and Electronically Signed by: YOLANDA COLÓN TANK CAR INSPECTOR On: 08/15/2016 11:14 AM Source: [facility] POWERCHART Document Id: [id number] documented in this encounter Miscellaneous Notes Miscellaneous - Yolanda Colón APRN, C.N.P. - 08/15/2016 11:15 AM CDT Ambulatory Patient Summary [place] [address] [place], [place] [id number] Visit Information Name: FRANSICO MACDONALD [facility] Number: [id number] Current Date: 08/15/2016 11:15:46 Physicians [...] nasal (fluticasone 50 mcg/inh nasal spray) 1 Ewing(s), Nasal, once a day glucosamine-chondroitin (Osteo Bi-Flex) 1 tablets, Oral, two times a day losartan-hydroCHLOROthiazide (losartan-hydroCHLOROthiazide 100mg-25mg oral tablet) 1 Tablet(s), Oral, once a day (Hyzaar) multivitamin with minerals (Centrum Silver Men's oral tablet) 1 Tablet(s), Oral, once a day nabumetone (Relafen 500 mg oral tablet) 1 Tablet(s), Oral, two times a day as needed for Pain omega-3 polyunsaturated fatty acids (Ord-500 oral capsule) 2 Tablet(s), Oral, once a day omeprazole (omeprazole 20 mg oral delayed release capsule) 1 cap, Oral, once a day pravastatin (pravastatin 80 mg oral tablet) 1 Tablet(s), Oral, once a day (at bedtime) predniSONE (predniSONE 50 mg oral tablet) 1 Tablet(s), Oral, once a day New [facility]ed to [facility] [address] [place] [phone] terazosin (Hytrin 1 mg oral capsule) 1 [...] of emergency. Electronically Signed By: YOLANDA COLÓN TANK CAR INSPECTOR Signed On:15-AUG-2016 08:46:45 Your Allergies & Intolerances [...] if you dont have one. Go to [email or web address] and click on Create Your Account. Then, follow the directions to complete the online form. Youll be asked for your [facility] number which you can find at the top of this document. Your Goals/Additional instructions: Source: [facility] POWERCHART Document Id: [id number] Miscellaneous - Yolanda Colón APRN, C.N.P. - 08/15/2016 11:15 AM CDT Ambulatory Discharge Medication List [address], [place] [id number] Visit Information Name: FRANSICO MACDONALD [facility] Number: [id number] Current Date: 08/15/2016 11:15:45 Attending [...] nasal (fluticasone 50 mcg/inh nasal spray) 1 Ewing(s), Nasal, once a day glucosamine-chondroitin (Osteo Bi-Flex) 1 tablets, Oral, two times a day losartan-hydroCHLOROthiazide (losartan-hydroCHLOROthiazide 100mg-25mg oral tablet) 1 Tablet(s), Oral, once a day (Hyzaar) multivitamin with minerals (Centrum Silver Men's oral tablet) 1 Tablet(s), Oral, once a day nabumetone (Relafen 500 mg oral tablet) 1 Tablet(s), Oral, two times a day as needed for Pain omega-3 polyunsaturated fatty acids (Ord-500 oral capsule) 2 Tablet(s), Oral, once a day omeprazole (omeprazole 20 mg oral delayed release capsule) 1 cap, Oral, once a day pravastatin (pravastatin 80 mg oral tablet) 1 Tablet(s), Oral, once a day (at bedtime) predniSONE (predniSONE 50 mg oral tablet) 1 Tablet(s), Oral, once a day New Routed to [address] [address] terazosin (Hytrin 1 mg oral capsule) 1 [...] of emergency. Electronically Signed By: YOLANDA COLÓN TANK CAR INSPECTOR Signed On:15-AUG-2016 08:46:45 Additional Information: Source: [facility] [employer] Document Id: [id number] Candido - Amaury Mann, L.P.N. - 08/15/2016 [...] MANN LPN - 08/15/2016 8:32 CDT Source: [facility] [employer] [address] [employer] [address] Document Id: [id number] CDT!8 [place]ido - Amaury Mann L.P.N. - 08/15/2016 8:25 AM CDT Adult Etcher Machine Intake/History Adult Etcher Machine Intake/History Entered On: 08/15/2016 8:30 CDT Performed [...] Preferred Communication Mode : Verbal Languages : Salvadorean Is Patient Female and 13-50 no hysterectomy [...] AMAURY MANN LPN 08/15/2016 8:25 CDT Source: [facility] Document Id: [id number] CDT!48 documented in this encounter Plan of Treatment Upcoming Encounters Date Type Specialty Care Team Description 02/11/2022 Appointment Laboratory Medicine Neli Hearn M.D. [address] [place] [phone] (Wo rk) 02/14/2022 Office Visit Family Medicine Lilli Hearn M.D. [address] [place] [phone] (Wo rk) documented as of this encounter Visit Diagnoses Not on filedocumented in this encounter
--- OUTSIDE RECORDS SUMMARY | 2022-01-28 08:57 | XMS_ITS | Encounter Summary ---
:1945 Author Organization [facility] Address [address] [place] [address] Care Team Providers Name Role Phone Yolanda Colón APRN, C.N.P. Primary Care Provider [phone] Reason for Visit Reason Comments Med Refill Encounter Details Date Type Department Care Team Description 05/30/2017 Refill Department of Family Medicine Yolanda Colón APRN, Med Refill in [facility] lela C.N.P. 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 - 05/30/2017 2:37 PM CST Last seen 03/14/17. E RUNNER documented in this encounter Plan of Treatment Upcoming Encounters Date Type Specialty Care Team Description 02/11/2022 Appointment Laboratory Medicine Neli Hearn M.D. [address] [place] [phone] (Wo rk) 02/14/2022 Office Visit Family Medicine Lilli Hearn M.D. [address] [place] [phone] (Wo rk) documented as of this encounter Visit Diagnoses Not on filedocumented in this encounter Care Teams Cell Attendant Relationship Specialty Start Date End Date Yolanda Colón APRN, C.N.P. PCP - General 09/08/16 01/19/22 documented as of this encounter
--- OUTSIDE RECORDS SUMMARY | 2022-01-28 08:57 | XMS_ITS | Encounter Summary ---
:1945 Author Organization [facility] Address [address] [place] [address] Care Team Providers Name Role Phone Yolanda Colón APRN, C.N.P. 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 - 03/24/2017 8:43 AM POWERHOUSE ELECTRICIAN Pt notified labs WNL. No further questions at this time. RHOUSE ELECTRICIAN Telephone Encounter - Gosia Mayer - 03/24/2017 8:25 AM CST PLEASE DO NOT REPLY TO SENDER, EMAILS ARE NOT MONITORED. THANK YOU. The patient had lab March 14 and he has not been told what the results are. Please give him a call. RHOUSE ELECTRICIAN documented in this encounter Plan of Treatment Upcoming Encounters Date Type Specialty Care Team Description 02/11/2022 Appointment Laboratory Medicine Neli Hearn M.D. [address] [place] [phone] (Wo rk) 02/14/2022 Office Visit Family Medicine Lilli Hearn M.D. [address] [place] [phone] (Wo rk) documented as of this encounter Visit Diagnoses Not on filedocumented in this encounter Care Teams Faculty Criminal Justice Relationship Specialty Start Date End Date Yolanda Colón APRN, C.N.P. PCP - General 09/08/16 01/19/22 documented as of this encounter
--- OUTSIDE RECORDS SUMMARY | 2022-01-28 08:57 | XMS_ITS | Encounter Summary ---
:1945 Author Organization [facility] Address [address] [place] [address] Care Team Providers Name Role Phone Unavailable Primary Care Provider Unavailable Encounter Details Date Type Department Care Team Description 05/25/2016 Hospital Encounter HX [facility] Wendy Ríos, AMBER, C.N.P. 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 No regular exercise. Nonsmoker. No alcohol use. MEDICATIONS CURRENT MEDICATIONS: Amlodipine 5 mg. Aspirin 81 daily. Bupropion SR 150 twice a day. Centrum Silver. Flonase. Hytrin. Losartan. Naprosyn. [place] 500. Omeprazole. Osteo Bi-Flex. Pravastatin. Probiotics. Viagra. [...] vertebrae was ordered. The open MRI at [facility], per patient request. Given the chronicity of his symptoms, would recommend further Physiatry consultation, depending on magnetic resonance imaging (MRI) results, and he is in agreement with this plan. Ohbs-wml-rmwrzhw analgesics for discomfort. 2. Reassured Medhat that his eye does look normal today without any evidence of pink eye, foreign object, or a stye. Encouraged lid lash with Moe and Moe baby shampoo. He is to call for any worsening of symptoms. He voices understanding and is in agreement with this treatment plan. Yolanda Colón APRN, C.N.P./pos Electronically Signed By: YOLANDA COLÓN HYDROMETER FINISHER On: 05/31/2016 08:44 AM Source: [facility] [id number] Document Id: [id number] GRATION INSPECTOR documented in this encounter Miscellaneous Notes Miscellaneous - Yolanda Colón APRN, C.N.P. - 05/31/2016 2:06 PM IMMIGRATION INSPECTOR From: YOLANDA COLÓN HYDROMETER FINISHER Sent: 05/31/2016 14:06:46 IMMIGRATION INSPECTOR pt notified of MRI spine. Pt will continue to work on weight loss. He will notify me if he would like further referral for physiatry or PT. Advised exercise and dietary consult. Pt declined at this time. Source: [facility] POWERCHART Document Id: [id number] Miscellaneous - Yolanda Colón APRN, C.N.P. - 05/25/2016 4:37 PM IMMIGRATION INSPECTOR Ambulatory Patient Summary [address] [id number] Visit Information Name: FRANSICO MACDONALD [facility] Number: [id number] Current Date: 05/25/2016 16:37:43 Physicians Attending Provider: YOLANDA COLÓN NP Primary Care Provider: YOLANDA COLÓN HYDROMETER FINISHER FRANSICO MACDONALD MICAELA has been given the [...] nasal (fluticasone 50 mcg/inh nasal spray) 1 [place]ell(s), Nasal, once a day glucosamine-chondroitin (Osteo Bi-Flex) 1 tablets, Oral, two times a day losartan-hydroCHLOROthiazide (losartan-hydroCHLOROthiazide 100mg-25mg oral tablet) 1 Tablet(s), Oral, once a day (Hyzaar) multivitamin with minerals (Centrum Silver Men's oral tablet) 1 Tablet(s), Oral, once a day naproxen (Naprosyn 500 mg oral tablet) 1 Tablet(s), Oral, two times a day as needed for pain omega-3 polyunsaturated fatty acids (B[place]-500 oral capsule) 2 Tablet(s), Oral, once a [...] By: YOLANDA COLÓN NP Signed On:25-MAY-2016 16:37:40 Your Allergies & Intolerances [...] if you dont have one. Go to [email or web address] and click on Create Your Account. Then, follow the directions to complete the online form. Youll be asked for your [facility] number which you can find at the top of this document. Your Goals/Additional instructions: Source: [facility] POWERCHART Document Id: [id number] GRATION INSPECTOR Miscellaneous - Yolanda Colón APRN, C.N.P. - 05/25/2016 4:37 PM IMMIGRATION INSPECTOR Ambulatory Discharge Medication List [place] [place], [place] [id number] Visit Information Name: LIZETLOFRANSICO MICAELA [facility] Number: [id number] Current Date: 05/25/2016 16:37:42 [...] nasal (fluticasone 50 mcg/inh nasal spray) 1 Hornell(s), Nasal, once a day glucosamine-chondroitin (Osteo Bi-Flex) 1 tablets, Oral, two times a day losartan-hydroCHLOROthiazide (losartan-hydroCHLOROthiazide 100mg-25mg oral tablet) 1 Tablet(s), Oral, once a day (Hyzaar) multivitamin with minerals (Centrum Silver Men's oral tablet) 1 Tablet(s), Oral, once a day naproxen (Naprosyn 500 mg oral tablet) 1 Tablet(s), Oral, two times a day as needed for pain omega-3 polyunsaturated fatty acids ([place]-500 oral capsule) 2 Tablet(s), Oral, once a [...] NP Signed On:25-MAY-2016 16:37:40 Additional Information: Source: [facility] POWERCHART Document Id: [id number] GRATION INSPECTOR Miscellaneous - Katia Ellis L.P.N. - 05/25/2016 7:59 AM CST Adult Low Back Pain Triage Adult Low Back Pain Triage Entered On: 05/25/2016 8:01 IMMIGRATION INSPECTOR Performed On: 05/25/2016 7:59 IMMIGRATION INSPECTOR by KATIA ELLIS LPN Adult Low Back [...] No KATIA ELLIS LPN - 05/25/2016 7:59 IMMIGRATION INSPECTOR FREDRICK Pain Intensity : The pain is [...] pain. KATIA ELLIS LPN - 05/25/2016 7:59 IMMIGRATION INSPECTOR Source: [facility] POWERCHART Document Id: [id number] IMMIGRATION INSPECTOR!26 GRATION INSPECTOR Miscellaneous - Katia Ellis L.P.N. 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 Intake/History Entered On: 05/25/2016 7:59 IMMIGRATION INSPECTOR Performed On: 05/25/2016 7:57 IMMIGRATION INSPECTOR by KATIA ELLIS LPN Intake Chief Complaint : low back pain [...] kg/m2 KATIA ELLIS LPN - 05/25/2016 7:57 IMMIGRATION INSPECTOR General Info Information Given By : Patient Languages : Panamanian Is Patient Female and 13-50 no hysterectomy : No KATIA ELLIS LPN - 05/25/2016 7:57 IMMIGRATION INSPECTOR Subjective Pain Symptoms : Yes KATIA ELLIS LPN - 05/25/2016 7:57 IMMIGRATION INSPECTOR Pain Scale Pain Scale Verbal 0-10 : Open KATIA ELLIS LPN - 05/25/2016 7:57 IMMIGRATION INSPECTOR Pain Pain Assessment Grid Pain 1 Location : Lower back Laterality : Bilateral Intensity : 2 KATIA ELLIS LPN - 05/25/2016 7:57 IMMIGRATION INSPECTOR Dependent Habits Exposure to Tobacco Smoke : Other: former Smoking Status : Former smoker Tobacco 2A : Yes Tobacco Use/Currently Using : No Tobacco Use/Last 30 Days : No Tobacco Use/Last 12 months : No Tobacco Last Use/Year : 1995 KATIA ELLIS LPN - 05/25/2016 7:57 IMMIGRATION INSPECTOR Caffeine Use Grid Caffeine Use : None KATIA ELLIS LPN - 05/25/2016 7:57 IMMIGRATION INSPECTOR Recreational Drug Use Grid Drug Use : None KATIA ELLIS LPN - 05/25/2016 7:57 IMMIGRATION INSPECTOR Source: [facility] POWERCHART Document Id: [id number] IMMIGRATION INSPECTOR!43 GRATION INSPECTOR documented in this encounter Plan of Treatment Upcoming Encounters Date Type Specialty Care Team Description 02/11/2022 Appointment Laboratory Medicine Neli Hearn M.D. [address] [place] [phone] (Wo rk) 02/14/2022 Office Visit Family Medicine Lilli Hearn M.D. [address] [place] [phone] (Wo rk) documented as of this encounter Visit Diagnoses Not on filedocumented in this encounter
--- OUTSIDE RECORDS SUMMARY | 2022-01-28 08:57 | XMS_ITS | Encounter Summary ---
:1945 Author Organization [facility] Address [address] [place] [address] Care Team Providers Name Role Phone Yolanda Colón APRN, C.N.P. Primary Care Provider [phone] Reason for Visit Reason Comments Numbness Temporomandibular Joint Pain Appointment Request (Routine) - Closed Specialty Diagnoses / Procedures Referred By Contact Refer red To Contact Family Medicine Referral ID Status Reason Start Date Expiration Date Visits Requ ested Visits Authorized [id number] Closed 08/29/2017 08/29/2018 1 1 Encounter Details Date Type Department Care Team Description 09/19/2017 Office Visit Department of Yolanda Craven Car pal Tunnel Syndrome Medicine in [place]AM[place], C.N.PFamilia Left (Primary Dx) [facility] a [address] [place] [phone] Social History Tobacco Use Types Packs/Day Years [...] at Date Recorded 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 Musculoskeletal: Tectonophysicist strength is equal bilaterally. Positive Tinel sign [...] Appointment Laboratory Medicine Neli Hearn M.D. [address] [place] [phone] (Wo rk) 02/14/2022 Office Visit Family Medicine Lilli Hearn M.D. [address] [place] [phone] (Wo rk) documented as of this encounter Visit Diagnoses Diagnosis Carpal Tunnel Syndrome Left - Primary documented in this encounter Care Teams Picture Enlarger Relationship Specialty Start Date End Date Yolanda Colón APRN, C.N.P. PCP - General 09/08/16 01/19/22 documented as of this encounter
--- OUTSIDE RECORDS SUMMARY | 2022-01-28 08:57 | XMS_ITS | Encounter Summary ---
:1945 Author Organization [facility] Address [address] [place] [address] Care Team Providers Name Role Phone Yolanda Colón APRN, C.N.P. Primary Care Provider [phone] Reason for Visit Reason Comments Other F/U hosp in [place]/ [facility] harged 02/10. See echo results Encounter Details Date Type Department Care Team Description 02/14/2017 Office Visit Department of Family Yolanda Colón Ret ention Fluid (Primary Dx); Medicine in [place], C.N.P. 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 documented as of this encounter Last Filed Vital Signs Vital Sign Reading Time Taken Comments Blood Pressure 132/74 02/14/2017 2:07 PM TERMINAL GAUGER Pulse 84 02/14/2017 2:07 PM TERMINAL GAUGER Temperature 37.5 ??C (99.5 ??F) 02/14/2017 2:07 PM TERMINAL GAUGER Respiratory Rate - - Oxygen Saturation 94% 02/14/2017 2:07 PM TERMINAL GAUGER Inhaled Oxygen Concentration - - Weight 146 kg (320 lb 15.8 oz) 02/14/2017 2:07 PM TERMINAL GAUGER Height 176 cm (5' 9.29) 02/14/2017 2:07 PM TERMINAL GAUGER Body Mass Index 47 02/14/2017 2:07 PM TERMINAL GAUGER documented in this encounter Progress Notes Yolanda Colón, AMBER, C.N.P. - 02/14/2017 2:15 PM CST SUBJECTIVE CHIEF COMPLAINT / REASON FOR VISIT Cristi Macdonald is a 71 y.o. male who presents for evaluation of Other (F/U hosp in [place]/ discharged 02/10. See echo results). HISTORY OF [...] to drive home from my walk to [place] and then his brought him to the emergency room in [place]. He underwent a echocardiogram with ejection fraction [...] diet.Patient has met with a dietitian in [place] and is going to continue to meet with her. He will follow up with me in 1 month. INAL GAUGER documented in this encounter Plan of Treatment Upcoming Encounters Date Type Specialty Care Team Description 02/11/2022 Appointment Laboratory Medicine Neli Hearn M.D. [address] [place] [phone] (Stephon caldera) 02/14/2022 Office Visit Family Medicine Lilli Hearn M.D. [address] [place] [phone] (Stephon caldera) documented as of this encounter Procedures Procedure Name Priority Date/Time Associated Comments Diagnosis HEMOGLOBIN A1C, B Routine 02/14/2017 3:06 PM Retention Fluid R esults for this TERMINAL GAUGER procedure are i n the results section. BASIC METABOLIC Routine 02/14/2017 3:03 PM Retention Fluid Res ults for this PANEL, S/P TERMINAL GAUGER procedure are i n the results section. documented in this encounter Results (ABNORMAL) Hemoglobin A1c (02/14/2017 3:06 PM TERMINAL GAUGER) athologist Signature Hemoglobin A1c, 6.5 (H) 4.2 - 5.6 02/14/2017 [facility] B % 6:38 PM [facility] Comment: Hemoglobin A1c values greater [...] 02/14/2017 3:06 PM 02/15/20 17 5:46 Venous) TERMINAL GAUGER PM TERMINAL GAUGER Yolanda Colón APRN C.N.P. LAB BLOOD ADD-ON Performing Organization Address City/State/ZIP Code Phon e Number [place] [address] [place] [address] [facility] BMP (Basic Metabolic Panel) (02/14/2017 3:03 PM TERMINAL GAUGER) athologist Signature Potassium, S 3.7 3.6 - 5.2 02/14/2017 [facility] mmol/L 6:38 PM [facility] Sodium, S 139 135 - 145 02/14/2017 [facility] mmol/L 6:38 PM [facility] Chloride, S 98 98 - 107 02/14/2017 [facility] mmol/L 6:38 PM [facility] Bicarbonate, S 29 22 - 29 02/14/2017 [facility] mmol/L 6:38 PM [facility] Anion Gap 12 7 - 15 02/14/2017 [facility] 6:38 PM [facility] BUN (Blood Urea 23 8 - 24 02/14/2017 [facility] Nitrogen), S mg/dL 6:38 PM [facility] Creatinine 0.99 0.74 - 02/14/2017 [facility] 1.35 mg/dL 6:38 PM [facility] eGFR 77 >=60 02/14/2017 [facility] Non-Black/Afric mL/min/BSA 6:38 PM TERMINAL GAUGER [facility] [place] [facility] Comment: ----ADDITIONAL INFORMATION---- Estimated GFR calculated using the 2009 CKD_EPI creatinine equation. eGFR-Black/ 89 >=60 mL/min/BSA 2016 6:38 PM [facility] Comment: ----ADDITIONAL INFORMATION---- Estimated GFR calculated using the 2009 CKD_EPI creatinine equation. Calcium, Total, S 10.0 8.9 - 10.1 mg/dL 02/14/2017 6 :38 PM TERMINAL GAUGER [facility] Glucose, S 135 70 - 140 mg/dL 02/14/2017 6:38 PM TERMINAL GAUGER [facility] Specimen Anatomical Collection Method Collection Time Receive d Time (Source) Location / / Volume Laterality Blood (Blood, 02/14/2017 3:03 PM 02/15/20 17 5:46 Venous) TERMINAL GAUGER PM TERMINAL GAUGER Yolanda Colón APRN, C.N.P. LAB BLOOD ADD-ON Performing Organization Address City/State/ZIP Code Phon e Number [facility] [address] [place] [address] [facility] documented in this encounter Visit Diagnoses Diagnosis Retention Fluid - Primary Elevated Glucose Morbid Obesity Body Mass Index Greater T lazaro Or Equal To 40 Adult (HCC) documented in this encounter Care Teams Hemodialysis Patient Care Specialist Relationship Specialty Start Date End Date Yolanda Colón APRN, C.N.P. PCP - General 09/08/16 01/19/22 documented as of this encounter
--- OUTSIDE RECORDS SUMMARY | 2022-01-28 08:57 | XMS_ITS | Encounter Summary ---
:1945 Author Organization [facility] Address [address] [place] [address] Care Team Providers Name Role Phone Yolanda Colón APRN, C.N.P. 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 Thank you for calling [facility]. documented in this encounter Plan of Treatment Upcoming Encounters Date Type Specialty Care Team Description 02/11/2022 Appointment Laboratory Medicine Neli Hearn M.D. [address] [place] [phone] (Wo verenice) 02/14/2022 Office Visit Family Medicine Lilli Hearn M.D. [address] [place] [phone] (Wo rk) documented as of this encounter Visit Diagnoses Not on filedocumented in this encounter Care Teams First Officer Relationship Specialty Start Date End Date Yolanda Colón APRN, C.N.P. PCP - General 09/08/16 01/19/22 documented as of this encounter
--- OUTSIDE RECORDS SUMMARY | 2022-01-28 08:57 | XMS_ITS | Encounter Summary ---
:1945 Author Organization [facility] Address [address] [place] [address] Care Team Providers Name Role Phone Yolanda Colón APRN, C.N.P. Primary Care Provider [phone] Reason for Visit Reason Comments Skin Tag Lt eye skin tag removal Outpatient (Routine) - Closed Specialty Diagnoses / Procedures Referred By Contact Refer red To Contact Family Medicine Yolanda Colón APRN, [facility] C.N.P. [address] [place] [phone] Referral ID Status Reason Start Date Expiration Date Visits Requ ested Visits Authorized [id number] Closed 11/21/2017 11/21/2018 1 1 Encounter Details Date Type Department Care Team Description 11/22/2017 Office Visit Department of Family Fritz Carcamo, Tag Skin Accessory Medicine in [place] [address] [place] [phone] Social History Tobacco Use Types Packs/Day Years [...] 1 to 4 times per year 11/2019 christianity services? Do you belong to any clubs or No 12/04/2019 organizations such as pentecostal groups, unions, fraPsydex or athletic groups, or school groups? 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 Nares patent bilaterally. Skin: Brenda, warm, dry and intact with no rashes [...] local anesthetic. He wishes to proceed today. [place] precautions utilized. Site prepped with chlorhexidine. Informed [...] Appointment Laboratory Medicine Neli Hearn M.D. [address] [place] [phone] (Wo rk) 02/14/2022 Office Visit Family Medicine Lilli Hearn M.D. [address] [place] [phone] (Wo rk) documented as of this encounter Visit Diagnoses Diagnosis Tag Skin Accessory documented in this encounter Care Teams Distribution Engineer Relationship Specialty Start Date End Date Yolanda Colón APRN, C.N.P. PCP - General 09/08/16 01/19/22 documented as of this encounter
--- OUTSIDE RECORDS SUMMARY | 2022-01-28 08:57 | XMS_ITS | Encounter Summary ---
:1945 Author Organization [facility] Address [address] [place] [address] Care Team Providers Name Role Phone Yolanda Colón APRN, C.N.P. Primary Care Provider [phone] Reason for Visit Reason Comments Med Refill Encounter Details Date Type Department Care Team Description 05/08/2017 Refill Department of Family Medicine Yolanda Colón APRN, Med Refill in [facility] lela C.N.P. 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 - 05/08/2017 4:07 PM CST Patient is due to be seen. OUT HAND documented in this encounter Plan of Treatment Upcoming Encounters Date Type Specialty Care Team Description 02/11/2022 Appointment Laboratory Medicine Neli Hearn M.D. [address] [place] [phone] (Wo rk) 02/14/2022 Office Visit Family Medicine Lilli Hearn M.D. [address] [place] [phone] (Wo rk) documented as of this encounter Visit Diagnoses Not on filedocumented in this encounter Care Teams Air Traffic Control Operator Relationship Specialty Start Date End Date Yolanda Colón APRN, C.N.P. PCP - General 09/08/16 01/19/22 documented as of this encounter
--- OUTSIDE RECORDS SUMMARY | 2022-01-28 08:57 | XMS_ITS | Encounter Summary ---
:1945 Author Organization [facility] Address [address] [place] [address] Care Team Providers Name Role Phone Yolanda Colón APRN, C.N.P. Primary Care Provider [phone] Reason for Visit Reason Comments Pre-op Exam cyst removal back neck on 04/27/[address] Hedrick at the [facility]. Appointment Request (Routine) - Incomplete Specialty Diagnoses / Procedures Referred By Contact Refer red To Contact Referral ID Status Reason Start Date Expiration Date Visits V isits Requested Authorized [id number] Incomplete 02/20/2017 08/19/2017 1 1 Encounter Details Date Type Department Care Team Description 03/14/2017 Office Visit Department of Yolanda Craven Pre operative Exam (Primary Dx); Medicine in [place] Hart, C.N.P. 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 documented as of this encounter Last Filed Vital Signs Vital Sign Reading Time Taken Comments Blood Pressure 138/76 03/14/2017 3:44 PM SENIOR TECHNICAL SPECIALIST Pulse 84 03/14/2017 3:44 PM SENIOR TECHNICAL SPECIALIST Temperature 36.7 ??C (98.1 ??F) 03/14/2017 3:44 PM SENIOR TECHNICAL SPECIALIST Respiratory Rate 16 03/14/2017 3:44 PM SENIOR TECHNICAL SPECIALIST Oxygen Saturation 95% 03/14/2017 3:44 PM SENIOR TECHNICAL SPECIALIST Inhaled Oxygen Concentration - - Weight 140 kg (308 lb) 03/14/2017 3:44 PM SENIOR TECHNICAL SPECIALIST Height 176 cm (5' 9.29) 03/14/2017 3:44 PM SENIOR TECHNICAL SPECIALIST Body Mass Index 45.1 03/14/2017 3:44 PM SENIOR TECHNICAL SPECIALIST documented in this encounter Progress Notes Yolanda Colón, AMBER, C.N.P. - 03/14/2017 4:00 PM CST SUBJECTIVE Pre-op Exam (cyst removal back neck on 04/27/[address] Hedrick at the [facility]. ) Procedure: Removal Soft tissue mass/cyst upper [...] Greater Than Or Equal To 40 Adult ([facility]) 04/16/2015 ??? Obstructive Sleep Apnea Adult 07/21/2016 Past Surgical History: Procedure Laterality Date ??? BACK SURGERY ??? HERNIA REPAIR N/A Hernia repair No prior history of anesthetic reactions, bleeding disorders or blood transfusions. Social History Nonsmoker, no alcohol use, no regular exercise. 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 Family History Problem Relation Age of Onset [...] for sedation/anesthesia. 2. Mass Back Soft Tissue OR TECHNICAL SPECIALIST documented in this encounter Plan of Treatment Upcoming Encounters Date Type Specialty Care Team Description 02/11/2022 Appointment Laboratory Medicine Neli Hearn M.D. [address] [place] [address] (Wo rk) 02/14/2022 Office Visit Family Medicine Lilli Hearn M.D. [address] [place] [address] (Wo rk) documented as of this encounter Procedures Procedure Name Priority Date/Time Associated Diagnosis Comme nts COMPREHENSIVE Routine 03/14/2017 4:19 Preoperative Exam Result s for this METABOLIC PANEL, S/P PM SENIOR TECHNICAL SPECIALIST procedu re are in the results section. documented in this encounter Results CMP (Comprehensive Metabolic Panel) (03/14/2017 4:19 PM SENIOR TECHNICAL SPECIALIST) P athologist Signature Potassium, S 3.8 3.6 - 5.2 03/15/2017 [facility] mmol/L 11:39 AM [facility] [employer] [facility] Sodium, S 140 135 - 145 03/15/2017 [facility] mmol/L 11:39 AM [facility] [employer] [facility] Chloride, S 99 98 - 107 03/15/2017 [facility] mmol/L 11:39 AM [facility] [employer] [facility] Bicarbonate, S 28 22 - 29 03/15/2017 [facility] mmol/L 11:39 AM [facility] [employer] [facility] Anion Gap 13 7 - 15 03/15/2017 [facility] 11:39 AM [facility] [employer] [facility] BUN (Blood Urea 13 8 - 24 03/15/2017 [facility] Nitrogen), S mg/dL 11:39 AM [facility] [employer] [facility] Creatinine 1.00 0.74 - 03/15/2017 [facility] 1.35 mg/dL 11:39 AM [facility] [employer] [facility] eGFR 76 >=60 03/15/2017 [facility] Non-Black/Afric mL/min/BSA 11:39 AM [facility] [employer] [facility] [facility]- [facility] [employer] [facility] Comment: ----ADDITIONAL INFORMATION---- Estimated GFR calculated using the 2009 CKD_EPI creatinine equation. eGFR Black/ 88 >=60 mL/min/BSA 03/15/2017 11:3 9 AM [facility] [place] [facility] Comment: ----ADDITIONAL INFORMATION---- Estimated GFR calculated using the 2009 CKD_EPI creatinine equation. Calcium, Total, S 10.0 8.9 - 10.1 03/15/2017 11:39 AM [facility] mg/dL [facility] [employer] [facility] Glucose, S 110 70 - 140 mg/dL 03/15/2017 11:39 AM [facility] Protein, Total, S 6.8 6.3 - 7.9 g/dL 03/15/2017 11:39 AM [facility] Albumin, S 4.4 3.5 - 5.0 g/dL 03/15/2017 11:39 AM [facility] Aspartate Aminotransferase 28 8 - 48 U/L 03/15/2017 1 1:39 AM [facility] ([facility] S [facility] Alkaline Phosphatase, S 54 45 - 115 U/L 03/15/2017 11 :39 AM [facility] Alanine Aminotransferase 32 7 - 55 U/L 03/15/2017 11: 39 AM [facility] S [facility] Bilirubin, Total, S 0.6 <=1.2 mg/dL 03/15/2017 11:39 A M [facility] [place] Specimen Anatomical Collection Method Collection Time Receive d Time (Source) Location / / Volume Laterality Blood (Blood, 03/14/2017 4:19 PM 03/15/20 17 Venous) SENIOR TECHNICAL SPECIALIST 11:09 AM SENIOR TECHNICAL SPECIALIST Yolanda Colón APRN, C.N.P. LAB BLOOD ADD-ON Performing Organization Address City/State/ZIP Code Phon e Number [facility] [address] [place] [id number] [facility] documented in this encounter Visit Diagnoses Diagnosis Preoperative Exam - Primary Mass Back Soft Tissue documented in this encounter Care Teams Sales Supervisor Relationship Specialty Start Date End Date Yolanda Colón APRN, C.N.P. PCP - General 09/08/16 01/19/22 documented as of this encounter
--- OUTSIDE RECORDS SUMMARY | 2022-01-28 08:57 | XMS_ITS | Encounter Summary ---
:1945 Author Organization [facility] Address [address] [place] [address] Care Team Providers Name Role Phone Unavailable Primary Care Provider Unavailable Encounter Details Date Type Department Care Team Description 08/10/2016 Hospital Encounter HX [facility] Wendy Ríos, AMBER, C.N.P. 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 - 08/10/2016 3:34 PM CDT [id number] CHIEF COMPLAINT/REASON FOR VISIT 1. Medhat comes [...] pain. He did have an MRI at [facility] in [place], showing a disk bulge T11-T12 and disk bulge L3-L4. 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 Naprosyn [...] . No regular exercise. 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 Nonsmoker. No alcohol use. MEDICATIONS CURRENT MEDICATIONS: Amlodipine 5 mg daily. Aspirin 81 mg daily. Bupropion 150 SR 1 tab twice a day. Centrum multivitamin. <__IM_1: s/l Junior Pemberton listed in previous records BLANK 03:05__> . Hytrin 1 mg. Losartan/hydrochlorothiazide 100/25 daily. Naprosyn 500 twice a day as needed for severe pain. Nancy 500. Omeprazole. Osteo Bi-Flex. Pravastatin 80. Probiotic. [...] APRN, C.N.P./pos Electronically Signed By: YOLANDA COLÓN TRADE ECONOMIST On: 08/11/2016 01:24 PM Source: [facility] MHSDOLBEYNONRADSYS Document Id: [id number] documented in this encounter Miscellaneous Notes Miscellaneous - Conversion, Historical Provider Ser - 08/11/2016 3:37 PM CDT LM FOR PT TO CHANGE TIME IN APPT 08/12/16 From: EVELYN MOLINA Sent: 08/11/2016 15:37:50 CDT Subject: LM FOR PT TO CHANGE TIME IN APPT 08/12/16 lm for pt to come at an earlier time to see Dr. Ritchie on 08/12/16. Source: [facility] POWERCHART Document Id: [id number] Miscellaneous - Yolanda Colón APRN, C.N.P. - 08/10/2016 4:43 PM CDT Ambulatory Patient Summary [address] [id number] Visit Information Name: FRANSICO MACDONALD MICAELA [facility] Number: [phone] Current Date: 08/10/2016 16:43:36 Physicians Attending Provider: YOLANDA COLÓN NP Primary Care Provider: YOLANDA COLÓN TRADE ECONOMIST FRANSICO MACDONALD has been given the following [...] nasal (fluticasone 50 mcg/inh nasal spray) 1 Acton(s), Nasal, once a day glucosamine-chondroitin (Osteo Bi-Flex) 1 tablets, Oral, two times a day losartan-hydroCHLOROthiazide (losartan-hydroCHLOROthiazide 100mg-25mg oral tablet) 1 Tablet(s), Oral, once a day (Hyzaar) multivitamin with minerals (Centrum Silver Men's oral tablet) 1 Tablet(s), Oral, once a day nabumetone (Relafen 500 mg oral tablet) 1 Tablet(s), Oral, two times a day as needed for Pain New Routed to [address] [address] omega-3 polyunsaturated fatty acids (Nancy-500 oral capsule) 2 Tablet(s), Oral, once a [...] of emergency. Electronically Signed By: YOLANDA COLÓN TRADE ECONOMIST Signed On:10-AUG-2016 16:43:32 Your Allergies & Intolerances [...] if you dont have one. Go to [email or web address] and click on Create Your Account. Then, follow the directions to complete the online form. Youll be asked for your [facility] number which you can find at the top of this document. Your Goals/Additional instructions: Source: [facility] POWERCHART Document Id: [id number] Miscellaneous - Yolanda Colón APRN, C.N.P. - 08/10/2016 4:43 PM CDT Ambulatory Discharge Medication List [address] [id number] Visit Information Name: FRANSICO MACDONALD LULUNEREIDA [facility] Number: [phone] Current Date: 08/10/2016 16:43:34 Attending Provider: YOLANDA COLÓN TRADE ECONOMIST Primary Care Provider: YOLANDA COLÓN TRADE ECONOMIST ROSEMARIEFRANSICO DOUGLAS has been given the following [...] nasal (fluticasone 50 mcg/inh nasal spray) 1 Acton(s), Nasal, once a day glucosamine-chondroitin (Osteo Bi-Flex) 1 tablets, Oral, two times a day losartan-hydroCHLOROthiazide (losartan-hydroCHLOROthiazide 100mg-25mg oral tablet) 1 Tablet(s), Oral, once a day (Hyzaar) multivitamin with minerals (Centrum Silver Men's oral tablet) 1 Tablet(s), Oral, once a day nabumetone (Relafen 500 mg oral tablet) 1 Tablet(s), Oral, two times a day as needed for Pain New Routed to [address] [address] omega-3 polyunsaturated fatty acids (Nancy-500 oral capsule) 2 Tablet(s), Oral, once a [...] of emergency. Electronically Signed By: YOLANDA COLÓN TRADE ECONOMIST Signed On:10-AUG-2016 16:43:32 Additional Information: Source: [facility] POWERCHART Document Id: [id number] Miscellaneous - Katy Shannon LFamiliaPFamiliaN. - 08/10/2016 3:38 PM CDT Adult Enrober Intake/History Adult Enrober Intake/History Entered On: 08/10/2016 15:40 CDT Performed [...] Mass Index : 48.26 kg/m2 KATY SHANNON LPN - 08/10/2016 15:38 CDT General Info Information Given By : Patient Languages : Sami Is Patient Female and 13-50 no hysterectomy : No KATY SHANNON LPN - 08/10/2016 15:38 CDT Subjective [...] SHANNON LPN - 08/10/2016 15:38 CDT Source: [facility] POWERCHART Document Id: [id number] CDT!34 documented in this encounter Plan of Treatment Upcoming Encounters Date Type Specialty Care Team Description 02/11/2022 Appointment Laboratory Medicine Neli Hearn M.D. [address] [place] [phone] (Wo verenice) 02/14/2022 Office Visit Family Medicine Lilli Hearn M.D. [address] [place] [phone] (Wo verenice) documented as of this encounter Visit Diagnoses Not on filedocumented in this encounter
--- OUTSIDE RECORDS SUMMARY | 2022-01-28 08:57 | XMS_ITS | Encounter Summary ---
:1945 Author Organization [facility] Address [address] [place] [address] Care Team Providers Name Role Phone Unavailable Primary Care Provider Unavailable Encounter Details Date Type Department Care Team Description 07/21/2016 Hospital Encounter HX [facility] Jamie Payan M.D. 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 - 07/21/2016 1:37 PM CDT [id number] CHIEF COMPLAINT/REASON FOR VISIT Annual sleep apnea [...] place and scores just 1 on the [place] survey at today's visit. No inadvertent falling [...] No teeth grinding. 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 He says that the DOT certifying provider gets an update from his DME provider [facility] in [place]. The patient saw his primary provider, Yolanda [...] right ankle reflex. Relaxation phase is normal. [place] Sleepiness Scale score equals 1. [employer] data download June 20, 2016 to July [...] point. Chester Payan M.D./pos cc: Yolanda Colón APRN CFamiliaNIsadora [facility] in [place] [id number] Electronically Signed By: CHESTER PAYAN MD On: 07/24/2016 07:51 AM Source: [facility] MHSDOLBEYNONRADSYS Document Id: [id number] documented in this encounter Miscellaneous Notes Miscellaneous - Chester Payan M.D. - 07/21/2016 2:35 PM CDT Ambulatory Patient Summary [facility] [address] [id number] Visit Information Name: FRANSICO MACDONALD [facility] Number: [id number] Current Date: 07/21/2016 14:35:05 Physicians Attending Provider: CHESTER PAYAN MD Primary Care Provider: YOLANDA COLÓN MAGISTRATE ASSISTANT FRANSICO MACDONALD has been given the following [...] nasal (fluticasone 50 mcg/inh nasal spray) 1 Doss(s), Nasal, once a day glucosamine-chondroitin (Osteo Bi-Flex) 1 tablets, Oral, two times a day losartan-hydroCHLOROthiazide (losartan-hydroCHLOROthiazide 100mg-25mg oral tablet) 1 Tablet(s), Oral, once a day (Hyzaar) multivitamin with minerals (Centrum Silver Men's oral tablet) 1 Tablet(s), Oral, once a day naproxen (Naprosyn 500 mg oral tablet) 1 Tablet(s), Oral, two times a day as needed for pain omega-3 polyunsaturated fatty acids ([place]-500 oral capsule) 2 Tablet(s), Oral, once a [...] dont have one. Go to [email or web address] and click on Create Your Account. Then, follow the directions to complete the online form. Youll be asked for your [facility] number which you can find at the top of this document. Your Goals/Additional instructions: Source: [facility] POWERCHART Document Id: [id number] Miscellaneous - Chester Payan M.D. - 07/21/2016 2:35 PM CDT Ambulatory Discharge Medication List [facility] [address] [id number] Visit Information Name: FRANSICO MACDONALD [facility] Number: [phone] Current Date: 07/21/2016 14:35:04 Attending Provider: CHESTER PAYAN MD Primary Care Provider: YOLANDA COLÓN MAGISTRATE ASSISTANT FRANSICO MACDONALD has been given the following [...] nasal (fluticasone 50 mcg/inh nasal spray) 1 Doss(s), Nasal, once a day glucosamine-chondroitin (Osteo Bi-Flex) 1 tablets, Oral, two times a day losartan-hydroCHLOROthiazide (losartan-hydroCHLOROthiazide 100mg-25mg oral tablet) 1 Tablet(s), Oral, once a day (Hyzaar) multivitamin with minerals (Centrum Silver Men's oral tablet) 1 Tablet(s), Oral, once a day naproxen (Naprosyn 500 mg oral tablet) 1 Tablet(s), Oral, two times a day as needed for pain omega-3 polyunsaturated fatty acids ([place]-500 oral capsule) 2 Tablet(s), Oral, once a [...] MD Signed On:21-JUL-2016 14:35:01 Additional Information: Source: [facility] POWERCHART Document Id: [id number] Miscellaneous - Yolanda Esposito L.PFamiliaN. - 07/21/2016 1:54 PM CDT [place] Sleepiness Scale [place] Sleepiness Scale Entered On: 07/21/2016 13:54 CDT Performed On: 07/21/2016 13:54 CDT by YOLANDA ESPOSITO LPN [place] Sleepiness Scale [place] sitting and reading : No chance of dozing [place] watching TV : Slight chance of dozing [place] sitting in public : No chance of dozing [place] passenger in car : No chance of dozing [place] in a car stopped in traffic : No chance of dozing [place] Lying down to rest : No chance of dozing [place] sitting and talking : No chance of dozing [place] sitting quietly after lunch : No chance of dozing [place] Total Score : 1 YOLANDA ESPOSITO LPN - 07/21/2016 13:54 CDT Source: [facility] [employer] Document Id: [id number] CDT!11 Miscellaneous - Yolanda Esposito L.P.N. - 07/21/2016 1:45 PM CDT Adult Noc Technician Intake/History Adult Noc Technician Intake/History Entered On: 07/21/2016 13:51 CDT Performed [...] Preferred Communication Mode : Verbal Languages : [place] Sudanese Is Patient Female and 13-50 no hysterectomy [...] ESPOSITO LPN - 07/21/2016 13:45 CDT Source: [facility] [employer] Document Id: [id number] CDT!46 Miscellaneous - Yolanda Esposito L.P.N. - 07/14/2016 11:10 AM CDT [facility] in [place] From: YOLANDA ESPOSIOT LPN Sent: 07/14/2016 11:10:20 CDT Subject: [facility] in [place] Marcellus will call back to confirm we have access to [facility], has Dr Viktor matthewt 07-21-2016 [facility] Document Id: [id number] documented in this encounter Plan of Treatment Upcoming Encounters Date Type Specialty Care Team Description 02/11/2022 Appointment Laboratory Medicine Neli Hearn M.D. [address] [place] [facility] [place] [phone] (Wo rk) 02/14/2022 Office Visit Family Medicine Lilli Hearn M.D. [address] [place] [facility] [place] [phone] (Stephon caldera) documented as of this encounter Visit Diagnoses Not on filedocumented in this encounter
--- OUTSIDE RECORDS SUMMARY | 2022-01-28 08:57 | XMS_ITS | Encounter Summary ---
:1945 Author Organization [facility] Address [address] [place] [address] Care Team Providers Name Role Phone Yolanda Colón APRN, C.N.P. Primary Care Provider [phone] Encounter Details Date Type Department Care Team Description 08/15/2017 Hospital Encounter Department of Katarzyna, Diabetes Mellitus Laboratory Medicine Yolanda Hart APRN, Type 2 (HCC) in [place], C.N.P. 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 ORAL) buPROPion (for_WELLBUTRIN [...] Laboratory Medicine Neli Hearn M.D. [address] [place] [phone] (Wo rk) 02/14/2022 Office Visit Family Medicine Lilli Hearn M.D. [address] [place] [address] (Wo rk) documented as of [...] A1c, 6.2 (H) 4.2 - 5.6 08/15/2017 [facility] B % 12:08 PM CDT [facility] Comment: Hemoglobin A1c values of 5.7-6.4 [...] Organization Address City/State/ZIP Code Phon e Number [place] [address] [place] [address] [facility] documented in this encounter Visit Diagnoses Diagnosis Diabetes Mellitus Type 2 (HCC) documented in this encounter Care Teams Primer Inserting Machine Adjuster Relationship Specialty Start Date End Date Yolanda Colón APRN, C.N.P. PCP - General 09/08/16 01/19/22 documented as of this encounter
--- OUTSIDE RECORDS SUMMARY | 2022-01-28 08:57 | XMS_ITS | Encounter Summary ---
:1945 Author Organization [facility] Address [address] [place] [address] Care Team Providers Name Role Phone Unavailable Primary Care Provider Unavailable Encounter Details Date Type Department Care Team Description 05/16/2016 Hospital Encounter HX [facility] Hemant Manuel, TRANSFER DRIVER, C.N.P. 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 documented as of this encounter Last Filed Vital Signs Vital Sign Reading Time Taken Comments Blood Pressure 138/76 05/16/2016 9:10 AM IMPREGNATOR AND DRIER HELPER Pulse 67 05/16/2016 9:10 AM IMPREGNATOR AND DRIER HELPER Temperature - - Respiratory Rate - - Oxygen Saturation - - Inhaled Oxygen Concentration - - Weight 148 kg (326 lb 8 oz) 05/16/2016 9:10 AM IMPREGNATOR AND DRIER HELPER Height 176 cm (5' 9.29) 05/16/2016 9:10 AM IMPREGNATOR AND DRIER HELPER Body Mass Index 47.81 05/16/2016 9:10 AM IMPREGNATOR AND DRIER HELPER documented in this encounter Medications at Time [...] as of this encounter Progress Notes Hemant Jaurgeui APRN, LindaNFamiliaPFamilia - 05/16/2016 10:22 AM CST [...] 1 tab(s), PO, 2xDay, PRN, 3 refills [place]-500 oral capsule, 2 tab(s), PO, Daily omeprazole [...] JAUREGUI CNP On: 05/16/2016 10:25 AM Source: [facility] POWERCHART Document Id: [id number] EGNATOR AND DRIER HELPER documented in this encounter Nursing Notes Katia Ellis L.P.N. - 05/16/2016 9:31 AM CST Nurse Only Documentation Nurse Only Documentation Entered On: 05/16/2016 9:31 IMPREGNATOR AND DRIER HELPER Performed On: 05/16/2016 9:31 IMPREGNATOR AND DRIER HELPER by KATIA ELLIS LPN Nurse Only Documentation Nurse Only Visit Documentation : Irrigated right ear with large amt. cerumen removed. Pt. tolerated well. KATIA ELLIS LPN - 05/16/2016 9:31 IMPREGNATOR AND DRIER HELPER Source: [facility] Be At One Document Id: [id number] IMPREGNATOR AND DRIER HELPER!3 EGNATOR AND DRIER HELPER documented in this encounter Miscellaneous Notes Miscellaneous - Hemant Jauregui APRN C.N.PFamilia - 05/16/2016 12:52 PM CST Results Notification Document Contains Addenda Addendum by KATIA ELLIS LPN on May 16, 2016 13:27:29 IMPREGNATOR AND DRIER HELPER Pt. notified. From: HEMANT JAUREGUI FOOD TECHNOLOGY TEACHER To: KATIA ELLIS LPN; Sent: 05/16/2016 12:52:08 IMPREGNATOR AND DRIER HELPER Show up: 05/16/2016 12:52:00 IMPREGNATOR AND DRIER HELPER Subject: Results Notification Please let patient know PSA is normal. Thanks, Results: Date Result Name Value Ref Range 05/16/2016 08:55 PSA 2.1 ng/mL ( - <=4.5) [facility] Document Id: [id number] Miscellaneous - Hemant Jauregui APRN C.N.PFamilia - 05/16/2016 10:22 AM CST Ambulatory Patient Summary [place] [address] [place], [place] [phone] Visit Information Name: FRANSICO MACDONALD [facility] Number: [id number] Current Date: 05/16/2016 10:22:50 Physicians Attending Provider: HEMANT JAUREGUI CNP Primary Care Provider: JULIO LOZADA LABOR ARBITRATOR FRANSICO MACDONALD has been given the following [...] nasal (fluticasone 50 mcg/inh nasal spray) 1 [place](s), Nasal, once a day glucosamine-chondroitin (Osteo Bi-Flex) 1 tablets, Oral, two times a day losartan-hydroCHLOROthiazide (losartan-hydroCHLOROthiazide 100mg-25mg oral tablet) 1 Tablet(s), Oral, once a day (Hyzaar) multivitamin with minerals (Centrum Silver Men's oral tablet) 1 Tablet(s), Oral, once a day naproxen (Naprosyn 500 mg oral tablet) 1 Tablet(s), Oral, two times a day as needed for pain omega-3 polyunsaturated fatty acids ([place]-500 oral capsule) 2 Tablet(s), Oral, once a [...] if you dont have one. Go to [email or web address] and click on Create Your Account. Then, follow the directions to complete the online form. Youll be asked for your [facility] number which you can find at the top of this document. Your Goals/Additional instructions: Source: [facility] POWERCHART Document Id: [id number] EGNATOR AND DRIER HELPER Miscellaneous - Hemant Jauregui APRN, C.N.P. - 05/16/2016 10:22 AM CST Ambulatory Discharge Medication List [address] [id number] Visit Information Name: FRANSICO MACDONALD [facility] Number: [id number] Current Date: 05/16/2016 10:22:49 Attending Provider: HEMANT JAUREGUI CNP Primary Care Provider: JULIO LOZADA LABOR ARBITRATOR FRANSICO MACDONALD has been given the following [...] nasal (fluticasone 50 mcg/inh nasal spray) 1 [place]ie(s), Nasal, once a day glucosamine-chondroitin (Osteo Bi-Flex) 1 tablets, Oral, two times a day losartan-hydroCHLOROthiazide (losartan-hydroCHLOROthiazide 100mg-25mg oral tablet) 1 Tablet(s), Oral, once a day (Hyzaar) multivitamin with minerals (Centrum Silver Men's oral tablet) 1 Tablet(s), Oral, once a day naproxen (Naprosyn 500 mg oral tablet) 1 Tablet(s), Oral, two times a day as needed for pain omega-3 polyunsaturated fatty acids ([place]-500 oral capsule) 2 Tablet(s), Oral, once a [...] of emergency. Electronically Signed By: HEMANT JAUREGUI FOOD TECHNOLOGY TEACHER Signed On:16-MAY-2016 10:22:46 Additional Information: Source: [facility] POWERCHART Document Id: [id number] EGNATOR AND DRIER HELPER Miscellaneous - Katia Ellis L.P.N. - 05/16/2016 9:10 AM CST Adult Service Delivery Consultant Intake/History Adult Service Delivery Consultant Intake/History Entered On: 05/16/2016 9:12 IMPREGNATOR AND DRIER HELPER Performed On: 05/16/2016 9:10 IMPREGNATOR AND DRIER HELPER by KATIA ELLIS LPN Intake Chief Complaint [...] kg/m2 KATIA ELLIS LPN - 05/16/2016 9:10 IMPREGNATOR AND DRIER HELPER General Info Information Given By : Patient Languages : Serbian Is Patient Female and 13-50 no hysterectomy : No KATIA ELLIS LPN - 05/16/2016 9:10 IMPREGNATOR AND DRIER HELPER Subjective Pain Symptoms : No KATIA ELLIS LPN - 05/16/2016 9:10 IMPREGNATOR AND DRIER HELPER Dependent Habits Exposure to Tobacco Smoke : Other: former Smoking Status : Former smoker Tobacco 2A : Yes Tobacco Use/Currently Using : No Tobacco Use/Last 30 Days : No Tobacco Use/Last 12 months : No Tobacco Last Use/Year : 1995 KATIA ELLIS LPN - 05/16/2016 9:10 IMPREGNATOR AND DRIER HELPER Caffeine Use Grid Caffeine Use : None KATIA ELLIS LPN - 05/16/2016 9:10 IMPREGNATOR AND DRIER HELPER Recreational Drug Use Grid Drug Use : None KATIA ELLIS LPN - 05/16/2016 9:10 IMPREGNATOR AND DRIER HELPER Source: [facility] POWERCHART Document Id: [id number] IMPREGNATOR AND DRIER HELPER!35 EGNATOR AND DRIER HELPER documented in this encounter Plan of Treatment Upcoming Encounters Date Type Specialty Care Team Description 02/11/2022 Appointment Laboratory Medicine Neli Hearn M.D. [address] [place] [phone] (Wo rk) 02/14/2022 Office Visit Family Medicine Lilli Hearn M.D. [address] [place] [phone] (Stephon caldera) documented as of this encounter Procedures Procedure Name Priority Date/Time Associated Diagnosis Comme nts PROSTATE-SPECIFIC Routine 05/16/2016 8:55 AM Resu lts for this AG (PSA) SCRN, S IMPREGNATOR AND DRIER HELPER procedure a re in the results section. documented in this encounter Results PSA (Prostate-Specific Antigen) Screen (05/16/2016 8:55 AM IMPREGNATOR AND DRIER HELPER) P athologist Signature Prostate-Specif 2.1 <=4.5 NGML [...] / Volume Laterality Blood 05/16/2016 8:55 AM IMPREGNATOR AND DRIER HELPER Hemant Jauregui APRN C.N.P. LAB BLOOD ADD-ON Performing Organization Address City/State/ZIP Code Phon e Number POWERCHART documented in this encounter Visit Diagnoses Not on filedocumented in this encounter
--- OUTSIDE RECORDS SUMMARY | 2022-01-28 08:57 | XMS_ITS | Encounter Summary ---
:1945 Author Organization [facility] Address [address] [place] [address] Care Team Providers Name Role Phone Yolanda Colón APRN, C.N.P. 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 [address] [facility] [place] [address] (Wo rk) 02/14/2022 Office Visit Family Medicine Lilli Hearn M.D. [address] [facility] [place] [address] (Wo rk) documented as of this encounter Visit Diagnoses Not on filedocumented in this encounter Care Teams Terminal Worker Relationship Specialty Start Date End Date Yolanda Colón APRN, C.N.P. PCP - General 09/08/16 01/19/22 documented as of this encounter
--- OUTSIDE RECORDS SUMMARY | 2022-01-28 08:57 | XMS_ITS | Encounter Summary ---
:1945 Author Organization [facility] Address [address] [place] [address] Care Team Providers Name Role Phone Yolanda Colón APRN, C.N.P. Primary Care Provider Reason for Visit Reason Comments Med Refill Encounter Details Date Type Department Care Team Description 03/21/2017 Refill Department of Family Medicine Yolanda Colón APRN, Med Refill in [facility] lela C.N.P. 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 [address] [place] [phone] (Wo rk) 02/14/2022 Office Visit Family Medicine Lilli Hearn M.D. [address] [place] [phone] (Wo rk) documented as of this encounter Visit Diagnoses Not on filedocumented in this encounter Care Teams Home Health Nurse Relationship Specialty Start Date End Date Yolanda Colón APRN, C.N.P. PCP - General 09/08/16 01/19/22 documented as of this encounter
--- OUTSIDE RECORDS SUMMARY | 2022-01-28 08:57 | XMS_ITS | Encounter Summary ---
:1945 Author Organization [facility] Address [address] [place] [address] Care Team Providers Name Role Phone Yolanda Colón APRN, C.N.P. Primary Care Provider [phone] Encounter Details Date Type Department Care Team Description 02/15/2017 Orders Only Department of Family Yolanda Colón Mellitus Type 2 (HCC) (Primary Dx); Medicine in AM[place] Hart, C.N.P. 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 [address] [place] [phone] (Wo rk) 02/14/2022 Office Visit Family Medicine Lilli Hearn M.D. [address] [place] [phone] (Wo rk) documented as of this encounter Results (ABNORMAL) Hemoglobin A1c (08/15/2017 8:32 AM CDT) P athologist Signature Hemoglobin A1c, 6.2 (H) 4.2 - 5.6 08/15/2017 [facility] B % 12:08 PM CDT [facility] Comment: Hemoglobin A1c values [...] Organization Address City/State/ZIP Code Phon e Number [address] [address] [place] documented in this encounter Visit Diagnoses Diagnosis Diabetes Mellitus Type 2 (HCC) - Primary Retention Fluid Hypertension Essential Primary documented in this encounter Care Teams Insole Doubler Relationship Specialty Start Date End Date Yolanda Colón APRN, C.N.P. PCP - General 09/08/16 01/19/22 documented as of this encounter
--- OUTSIDE RECORDS SUMMARY | 2022-01-28 08:57 | XMS_ITS | Encounter Summary ---
:1945 Author Organization [facility] Address [address] [place] [address] Care Team Providers Name Role Phone Unavailable Primary Care Provider Unavailable Encounter Details Date Type Department Care Team Description 08/12/2016 Hospital Encounter HX [facility] Vazquez Villaseñor M.D. 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 - 08/12/2016 3:00 PM CDT [id number] CHIEF COMPLAINT/REASON FOR VISIT He is a [...] prostate cancer. 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 He is . MEDICATIONS He is on several medications including: Aspirin. Amlodipine. Bupropion. Hytrin. Losartan/hydrochlorothiazide. Naprosyn. He takes Quenemo 500. Omeprazole. He takes Viagra. Probiotic. SYSTEMS [...] I spent about 30 minutes with Fransico Paredeschinka in consultation. Harrison Lane M.D./pos Electronically Signed By: HARRISON LANE MD On: 08/19/2016 03:29 PM Source: [facility] MHSDOLBEYNONRADSYS Document Id: [id number] documented in this encounter Miscellaneous Notes Miscellaneous - Harrison Lane M.D. - 08/12/2016 4:16 PM CDT Ambulatory Patient Summary [facility] [address] [id number] Visit Information Name: FRANSICO MACDONALD [facility] Number: [id number] Current Date: 08/12/2016 16:16:12 Physicians Attending Provider: HARRISON LANE MD Primary Care Provider: JULIO LOZADA FISHING TACKLE REPAIRER FRANSICO MACDONALD has been given the following [...] nasal (fluticasone 50 mcg/inh nasal spray) 1 [place](s), Nasal, once a day glucosamine-chondroitin (Osteo Bi-Flex) 1 tablets, Oral, two times a day losartan-hydroCHLOROthiazide (losartan-hydroCHLOROthiazide 100mg-25mg oral tablet) 1 Tablet(s), Oral, once a day (Hyzaar) multivitamin with minerals (Centrum Silver Men's oral tablet) 1 Tablet(s), Oral, once a day nabumetone (Relafen 500 mg oral tablet) 1 Tablet(s), Oral, two times a day as needed for Pain omega-3 polyunsaturated fatty acids (Quenemo-500 oral capsule) 2 Tablet(s), Oral, once a [...] of the skin over the lipoma ?? [phone] [facility], [address] [place] [address]. All rights reserved. This information is not [...] if you dont have one. Go to [email or web address] and click on Create Your Account. Then, follow the directions to complete the online form. Youll be asked for your [facility] number which you can find at the top of this document. Your Goals/Additional instructions: Source: [facility] POWERCHART Document Id: [id number] Miscellaneous - Harrison Lane M.D. - 08/12/2016 4:16 PM CDT Ambulatory Discharge Medication List [facility] [address] [id number] Visit Information Name: FRANSICO MACDONALD [facility] Number: [id number] Current Date: 08/12/2016 16:16:11 Attending Provider: HARRISON LANE MD Primary Care Provider: JULIO LOZADA FISHING TACKLE REPAIRER FRANSICO MACDONALD has been given the following [...] nasal (fluticasone 50 mcg/inh nasal spray) 1 [place](s), Nasal, once a day glucosamine-chondroitin (Osteo Bi-Flex) 1 tablets, Oral, two times a day losartan-hydroCHLOROthiazide (losartan-hydroCHLOROthiazide 100mg-25mg oral tablet) 1 Tablet(s), Oral, once a day (Hyzaar) multivitamin with minerals (Centrum Silver Men's oral tablet) 1 Tablet(s), Oral, once a day nabumetone (Relafen 500 mg oral tablet) 1 Tablet(s), Oral, two times a day as needed for Pain omega-3 polyunsaturated fatty acids (Quenemo-500 oral capsule) 2 Tablet(s), Oral, once a [...] MD Signed On:12-AUG-2016 16:13:45 Additional Information: Source: [facility] InEnTec Document Id: [id number] Miscellaneous - Mona Shah L.P.N. - 08/12/2016 3:13 PM CDT Adult Lead Injection Mold Technician Intake/History Adult Lead Injection Mold Technician Intake/History Entered On: 08/12/2016 15:16 CDT Performed On: 08/12/2016 15:13 CDT by MONA SHAH board catcher Chief Complaint : patient presents with lipoma to upper back/neck Height : 176 cm(Converted to: 5 ft 9 inch(es), 69 inch(es)) MONA SHAH RN - 08/12/2016 15:13 CDT General Info Information Given By : Patient Preferred Communication Mode : Verbal Languages : Yemeni Is Patient Female and 13-50 no hysterectomy [...] SHAH RN - 08/12/2016 15:13 CDT Source: [facility] In[employer]ec Document Id: [id number] CDT!25 documented in this encounter Plan of Treatment Upcoming Encounters Date Type Specialty Care Team Description 02/11/2022 Appointment Laboratory Medicine Neli Hearn M.D. [address] [place] [address] (Wo rk) 02/14/2022 Office Visit Family Medicine Lilli Hearn M.D. [address] [place] [address] (Wo rk) documented as of this encounter Visit Diagnoses Not on filedocumented in this encounter
--- OUTSIDE RECORDS SUMMARY | 2022-01-28 08:57 | XMS_ITS | Encounter Summary ---
:1945 Author Organization [facility] Address [address] [place] [address] Care Team Providers Name Role Phone Yolanda Colón APRN, C.N.P. 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 [facility] [place] [phone] (Wo rk) 02/14/2022 Office Visit Family Medicine Lilli Hearn M.D. [address] [place] [phone] (Wo rk) documented as of this encounter Visit Diagnoses Diagnosis Apnea Sleep Obstructive documented in this encounter Care Teams Truck Terminal Manager Relationship Specialty Start Date End Date Yolanda Colón APRN, C.N.P. PCP - General 09/08/16 01/19/22 documented as of this encounter
--- OUTSIDE RECORDS SUMMARY | 2022-01-28 08:57 | XMS_ITS | Encounter Summary ---
:1945 Author Organization [facility] Address [address] [place] [address] Care Team Providers Name Role Phone Yolanda Colón APRN, C.N.P. Primary Care Provider Reason for Visit Reason Comments Med Refill Encounter Details Date Type Department Care Team Description 06/07/2017 Refill Department of Family Medicine Yolanda Colón APRN, Med Refill in [facility] lela C.N.P. 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 [address] [place] [phone] (Wo rk) 02/14/2022 Office Visit Family Medicine Lilli Hearn M.D. [address] [place] [phone] (Wo rk) documented as of this encounter Visit Diagnoses Not on filedocumented in this encounter Care Teams Senior Data Mining Analyst Relationship Specialty Start Date End Date Yolanda Colón APRN, C.N.P. PCP - General 09/08/16 01/19/22 documented as of this encounter
--- OUTSIDE RECORDS SUMMARY | 2022-01-28 08:57 | XMS_ITS | Encounter Summary ---
:1945 Author Organization [facility] Address [address] [place] [address] Care Team Providers Name Role Phone Yolanda Colón APRN, C.N.P. 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 - 02/21/2017 4:34 PM CST Patient notified that the work note is completed and placed at the front desk administrator to be picked up. R RELATIONS SPECIALIST Telephone Encounter - Alpa Nelson R.N. - 02/20/2017 3:57 PM CST Work letter to be signed when provider returns to clinic tomorrow 02/21 and patient needing to be called to pick pulling machine operator R RELATIONS SPECIALIST Telephone Encounter - Yolanda Colón APRN, C.N.P. - 02/20/2017 3:48 PM LABOR RELATIONS SPECIALIST Dulce Maria Yuen was printed in clinic on my computer. Please contact patient and let him know he can pick pulling machine operator. R RELATIONS SPECIALIST Telephone Encounter - Alpa Nelson R.N. - [...] appt as requested at last appt R RELATIONS SPECIALIST Telephone Encounter - Roseann Hendricks - 02/20/2017 1:49 PM CST [employer] called in about returning to work and would like a call back, he also called Monday. Thank you. R RELATIONS SPECIALIST Telephone Encounter - Nisha Lucia R.N. - 02/17/2017 9:27 AM CST [employer] called in inquiring about getting a note to return to work on Monday the , but would like to know if Adelina Colón would recommend it. Pt requesting a CB from Adelina prior to the letter being written to discuss. R RELATIONS SPECIALIST Telephone Encounter - Meri Bear - 02/17/2017 8:33 AM CST He has seen Adelina for the passed week and needs a return to work note and would like to speak with a nurse before it's written please call him back. R RELATIONS SPECIALIST documented in this encounter Plan of Treatment Upcoming Encounters Date Type Specialty Care Team Description 02/11/2022 Appointment Laboratory Medicine Neli Hearn M.D. [address] [place] [phone] (Wo rk) 02/14/2022 Office Visit Family Medicine Lilli Hearn M.D. [address] [place] [phone] (Wo rk) documented as of this encounter Visit Diagnoses Not on filedocumented in this encounter Care Teams Hydrology Professor Relationship Specialty Start Date End Date Yolanda Colón, INDUSTRIAL RECRUITER, C.N.P. PCP - General 09/08/16 01/19/22 documented as of this encounter
--- OUTSIDE RECORDS SUMMARY | 2022-01-28 08:57 | XMS_ITS | Encounter Summary ---
:1945 Author Organization [facility] Address [address] [place] [address] Care Team Providers Name Role Phone Yolanda Colón APRN, C.N.P. Primary Care Provider [phone] Reason for Visit Reason Comments Med Refill Encounter Details Date Type Department Care Team Description 03/10/2017 Refill Department of Family Medicine Yolanda Colón APRN, Med Refill in [facility] lela C.N.P. 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 [address] [place] [phone] (Wo rk) 02/14/2022 Office Visit Family Medicine Lilli Hearn M.D. [address] [place] [phone] (Wo rk) documented as of this encounter Visit Diagnoses Not on filedocumented in this encounter Care Teams Rivet Tester Relationship Specialty Start Date End Date Yolanda Colón APRN, C.N.P. PCP - General 09/08/16 01/19/22 documented as of this encounter
--- OUTSIDE RECORDS SUMMARY | 2022-01-28 08:58 | XMS_ITS | Encounter Summary ---
:1945 Author Organization [facility] Address [address] [place] [address] Care Team Providers Name Role Phone Unavailable Primary Care Provider Unavailable Encounter Details Date Type Department Care Team Description 07/16/2014 Hospital Encounter HX [facility] JENNIFERWendy Riojas, PARTS REMOVER, C.N.P. 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 - 07/16/2014 9:08 AM CDT [id number] CHIEF COMPLAINT/REASON FOR VISIT Patient comes in [...] mg. Bupropion. Fluticasone. Hydrochlorothiazide. Hytrin. Losartan. Naprosyn. Havana-3. Osteo Bi-Flex. Pravastatin. Viagra. ALLERGIES TYLENOL. SYSTEMS [...] Colón, C.N.P./pos Electronically Signed By: YOLANDA COLÓN RN WOUND CARE On: 07/22/2014 08:15 AM Source: [facility] MHSDOLBEYNONRADSYS Document Id: [id number] documented in this encounter Miscellaneous Notes Miscellaneous - Aleja Waters L.P.N. - 07/29/2014 1:16 PM CDT rabenbergg-results Entered by ALEJA WATERS LPN on 29 Jul 2014 13:16:59 CDT Letter sent to Pt. From: SIDDHARTH SOTO LPN (YUMIKO [place] Nurse) To: YUMIKO Michael [facility] Practice Nurse; Sent: 07/29/2014 12:56:47 CDT Subject: rabenbergg-results Pt called in stating he did not recived a results letter from his labs that were drawn on 07/16/14. Pt also states he was not notified of these results. I told pt all results were within normal limits.Pt would like a results letter sent to his home, address was verified. Please advise. Source: [facility] POWERCHART Document Id: [id number] Electronically signed by Conversion, [facility] Final Dressing Cutter [id number] at 08/21/2016 4:30 PM CDT Miscellaneous - Aleja Waters, L.P.N. - 07/29/2014 1:16 PM CDT Custom Result Letter 29 Jul 2014 FRANSICO MACDONALD [address] [place] [id number] Dear FRANSICO MACDONALD, All Labs normal. Result [...] 2014 This document has images extracted. Source: [facility] ServiceMax Document Id: [id number] Electronically signed by Conversion, [facility] Final Dressing Cutter [id number] at 08/21/2016 4:30 PM CDT Miscellaneous - Yolanda Cloón, PARTS REMOVER, C.N.P. - 07/16/2014 12:58 PM CDT Results Notification From: YOLANDA COLÓN RN WOUND CARE Sent: 07/16/2014 12:58:32 CDT Show up: 07/16/2014 [...] Lvl 9.9 mg/dL (8.8 - 10.3) Source: [facility] ServiceMax Document Id: [id number] Electronically signed by Conversion, [facility] Final Dressing Cutter [id number] at 08/21/2016 4:30 PM CDT Miscellaneous - Yolanda Colón APRN, C.N.P. - 07/16/2014 11:34 AM CDT Ambulatory Patient Summary [address] [place], [place] [phone] Visit Information Name: FRANSICO MACDONALD [facility] Number: [id number] Current Date: 07/16/2014 11:34:46 Physicians Attending Provider: YOLANDA COLÓN RN WOUND CARE Primary Care Provider: YOLANDA COLÓN RN WOUND CARE FRANSICO MACDONALD has been given the following [...] Oral, two times a day Routed to [facility] [address] [place] [address] fluticasone nasal (fluticasone 50 mcg/inh nasal spray) 1 Winner(s), Nasal, once a day glucosamine-chondroitin (Osteo Bi-Flex) 1 tablets, Oral, two times a day hydrochlorothiazide (hydrochlorothiazide 25 mg oral tablet) 1 Tablet(s), Oral, once a day Routed to [facility] [address] [place] [address] losartan (losartan 100 mg oral tablet) 1 Tablet(s), Oral, once a day Routed to [facility] [address] [place] [address] Misc Prescription (Misc Prescription) 2 Tablet(s), once a day digestive health naproxen (Naprosyn 500 mg oral tablet) 1 Tablet(s), Oral, two times a day as needed for pain omega-3 polyunsaturated fatty acids (Havana-500 oral capsule) 1 cap, Oral, once a day pravastatin (pravastatin 80 mg oral tablet) 1 Tablet(s), Oral, once a day (at bedtime) Routed to [address] [address] sildenafil (sildenafil 25 mg oral tablet) 1 tablet one hour prior to sexual activity, Oral, once a day as needed for Erectile dysfunction Routed to [address] [address] terazosin (Hytrin 1 mg oral capsule) 1 cap, Oral, once a day (at bedtime) Routed to [address] [address] Stop Taking the Following Medications: [...] of emergency. Electronically Signed By: YOLANDA COLÓN RN WOUND CARE Signed On:16-JUL-2014 11:34:35 Your Allergies & Intolerances Substance Reaction Symptoms Category Comments Tylenol Drug Your Problem List Problem Status Onset Comments Hypertension Essential (401.9) Active Hypercholesterolemia Active Obesity NOS Active Your Upcoming Appointments Date Time Location Provider No Appointments found Attention: Contact your local Clinic if further appointment detail needed. Your Goals/Additional instructions: Source: [facility] POWERCHART Document Id: [id number] Miscellaneous - Yolanda Colón APRN, C.N.P. - 07/16/2014 11:34 AM CDT Ambulatory Discharge Medication List [address] [id number] Visit Information Name: FRANSICO MACDONALD [facility] Number: [id number] Visit Date: 07/16/2014 11:34:44 Attending Provider: YOLANDA COLÓN RN WOUND CARE Primary Care Provider: YOLANDA COLÓN RN WOUND CARE FRANSICO MACDONALD has been given the following [...] Oral, two times a day Routed to [address] [id number] fluticasone nasal (fluticasone 50 mcg/inh nasal spray) 1 Winner(s), Nasal, once a day glucosamine-chondroitin (Osteo Bi-Flex) 1 tablets, Oral, two times a day hydrochlorothiazide (hydrochlorothiazide 25 mg oral tablet) 1 Tablet(s), Oral, once a day Routed to [address] [address] losartan (losartan 100 mg oral tablet) 1 Tablet(s), Oral, once a day Routed to [address] [address] Misc Prescription (Misc Prescription) 2 Tablet(s), once a day digestive health naproxen (Naprosyn 500 mg oral tablet) 1 Tablet(s), Oral, two times a day as needed for pain omega-3 polyunsaturated fatty acids (Havana-500 oral capsule) 1 cap, Oral, once a day pravastatin (pravastatin 80 mg oral tablet) 1 Tablet(s), Oral, once a day (at bedtime) Routed to [address] [address] sildenafil (sildenafil 25 mg oral tablet) 1 tablet one hour prior to sexual activity, Oral, once a day as needed for Erectile dysfunction Routed to [address] [address] terazosin (Hytrin 1 mg oral capsule) 1 cap, Oral, once a day (at bedtime) Routed to [address] [address] Stop Taking the Following Medications: [...] of emergency. Electronically Signed By: YOLANDA COLÓN RN WOUND CARE Signed On:16-JUL-2014 11:34:35 Additional Information: Source: [facility] POWERCHART Document Id: [id number] Miscellaneous - Mervin Marquez, L.P.N. - 07/16/2014 9:21 AM CDT Adult Production Sorter Intake/History Adult Production Sorter Intake/History Entered On: 07/16/2014 9:22 CDT Performed [...] 07/16/2014 9:21 CDT General Info Languages : Swazi Is Patient Female and 13-50 no hysterectomy : No MERVIN MARQUEZ DATA ENTRY MANAGER - 07/16/2014 9:21 CDT Subjective Pain Symptoms : No MERVIN MARQUEZ LPN - 07/16/2014 9:21 CDT Dependent Habits Tobacco Use/Currently Using : No Smoking Status : Former smoker MERVIN MARQUEZ DATA ENTRY MANAGER - 07/16/2014 9:21 CDT Tobacco Use Grid Last Use : 40 YEARS AGO MERVIN MARQUEZ DATA ENTRY MANAGER - 07/16/2014 9:21 CDT ID Screen Drug Resistant Organism : No Travel Within Last 21 Days : No Contact with someone with Ebola : No MERVIN MARQUEZ DATA ENTRY MANAGER - 07/16/2014 9:21 CDT Source: [employer] My Game Document Id: [id number] CDT!28 documented in this encounter Plan of Treatment Upcoming Encounters Date Type Specialty Care Team Description 02/11/2022 Appointment Laboratory Medicine Neli Hearn M.D. [address] [place] [phone] (Stephon caldera) 02/14/2022 Office Visit Family Medicine Lilli Hearn M.D. [address] [place] [phone] (Stephon caldera) documented as of this encounter [...] MLMINSA eGFR >60.0 >=60.0 POWERCHART Black/ MLMINSA Kittitian Glucose 132 70 - 140 POWERCHART MGDL Specimen (Source) Anatomical Collection Method Collection Time Re ceived Time Location / / Volume Laterality Blood 07/16/2014 9:45 AM CDT Yolanda Colón APRN, C.N.P. LAB BLOOD ADD-ON Performing Organization Address City/State/ZIP Code Phon e Number POWERCHART documented in this encounter Visit Diagnoses Not on filedocumented in this encounter
--- OUTSIDE RECORDS SUMMARY | 2022-01-28 08:58 | XMS_ITS | Encounter Summary ---
:1945 Author Organization [facility] Address [address] [place] [address] Care Team Providers Name Role Phone Unavailable Primary Care Provider Unavailable Encounter Details Date Type Department Care Team Description 02/16/2016 Hospital Encounter HX [facility] Jessica Ríos, FLASH WELDING MACHINE OPERATOR, C.N.P. 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 documented as of this encounter Last Filed Vital Signs Vital Sign Reading Time Taken Comments Blood Pressure 138/78 02/16/2016 3:19 PM HOUSING ASSISTANT PROPERTY MANAGER Pulse 82 02/16/2016 3:19 PM HOUSING ASSISTANT PROPERTY MANAGER Temperature - - Respiratory Rate - - Oxygen Saturation - - Inhaled Oxygen Concentration - - Weight 145 kg (318 lb 12.6 oz) 02/16/2016 3:19 PM HOUSING ASSISTANT PROPERTY MANAGER Height 176 cm (5' 9.29) 02/16/2016 3:19 PM HOUSING ASSISTANT PROPERTY MANAGER Body Mass Index 46.68 02/16/2016 3:19 PM HOUSING ASSISTANT PROPERTY MANAGER documented in this encounter Medications at Time [...] by 0 07/16/19 11 01/09/2018 mouth daily. B.ANI/L.ACI/L.DEYVI/L.PLAN/ Take 1 capsule by [...] AMBER, C.N.P. - 02/16/2016 3:11 PM CST [id number] CHIEF COMPLAINT/REASON FOR VISIT 1. Medhat is [...] repair. 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 No regular exercise. CURRENT MEDICATIONS Amlodipine 5 mg. Aspirin 81 mg. Bupropion 150 XR daily. Centrum Silver. Flonase. Hytrin 1 mg daily. Losartan/hydrochlorothiazide 100/25 daily. Naprosyn 500 as needed for arthritic pain. Perry 5. Omeprazole 20. Osteo Bi-Flex. Pravastatin 80 [...] APRN, C.N.P./pos Electronically Signed By: YOLANDA COLÓN SIGNALS COLLECTION TECHNICIAN On: 02/17/2016 11:51 AM Source: [facility] MHSDOLBEYNONRADSYS Document Id: [id number] ING ASSISTANT PROPERTY MANAGER documented in this encounter Miscellaneous Notes Miscellaneous - Yolanda Colón APRN, C.N.P. - 02/16/2016 4:47 PM HOUSING ASSISTANT PROPERTY MANAGER Ambulatory Patient Summary [address] [place], [place] [phone] Visit Information Name: LIZETLOFRANSICO MICAELA [facility] Number: [id number] Current Date: 02/16/2016 16:47:15 Physicians Attending Provider: YOLANDA COLÓN NP Primary Care Provider: YOLANDA COLÓN NP ROSEMARIESTELLA FRANSICO HINOJOSA has been given the [...] Tablet(s), Oral, once a day Routed to [address] [address] aspirin (aspirin 81 mg oral tablet) 1 Tablet(s), Oral, once a day bifidobacterium-lactobacillus (Probiotic Formula) 1 cap, Oral, once a day buPROPion (buPROPion SR 150 mg/12 hour oral tablet, sustained release) 1 Tablet(s), Oral, two times a day Routed to [address] [address] fluticasone nasal (fluticasone 50 mcg/inh nasal spray) 1 Waverly(s), Nasal, once a day glucosamine-chondroitin (Osteo Bi-Flex) 1 tablets, Oral, two times a day losartan-hydroCHLOROthiazide (losartan-hydroCHLOROthiazide 100mg-25mg oral tablet) 1 Tablet(s), Oral, once a day (Hyzaar) This is a CHANGE Routed to [address] [address] multivitamin with minerals (Centrum Silver Men's oral tablet) 1 Tablet(s), Oral, once a day naproxen (Naprosyn 500 mg oral tablet) 1 Tablet(s), Oral, two times a day as needed for pain omega-3 polyunsaturated fatty acids (Perry-500 oral capsule) 2 Tablet(s), Oral, once a day omeprazole (omeprazole 20 mg oral delayed release capsule) 1 cap, Oral, once a day Routed to [address] [address] pravastatin (pravastatin 80 mg oral tablet) 1 Tablet(s), Oral, once a day (at bedtime) Routed to [address] [place] [address] *sildenafil (sildenafil 25 mg oral tablet) 1 tablet one hour prior to sexual activity, Oral, once a day as needed for Erectile dysfunction terazosin (Hytrin 1 mg oral capsule) 1 cap, Oral, once a day (at bedtime) Routed to [facility] [address] [place] [address] * You have let us know that [...] of emergency. Electronically Signed By: YOLANDA COLÓN SIGNALS COLLECTION TECHNICIAN Signed On:16-FEB-2016 15:59:22 Your Allergies & Intolerances [...] if you dont have one. Go to [email or web address] and click on Create Your Account. Then, follow the directions to complete the online form. Youll be asked for your [facility] number which you can find at the top of this document. Your Goals/Additional instructions: Source: [facility] POWERCHART Document Id: [id number] ING ASSISTANT PROPERTY MANAGER Miscellaneous - Yolanda Colón APRN, C.N.P. - 02/16/2016 4:47 PM HOUSING ASSISTANT PROPERTY MANAGER Ambulatory Discharge Medication List [address] [id number] Visit Information Name: FRANSICO MACDONALD [facility] Number: [id number] Current Date: 02/16/2016 16:47:14 Attending Provider: YOLANDA COLÓN SIGNALS COLLECTION TECHNICIAN Primary Care Provider: YOLANDA COLÓN SIGNALS COLLECTION TECHNICIAN FRANSICO MACDONALD has been given the [...] Tablet(s), Oral, once a day Routed to [address] [address] aspirin (aspirin 81 mg oral tablet) 1 Tablet(s), Oral, once a day bifidobacterium-lactobacillus (Probiotic Formula) 1 cap, Oral, once a day buPROPion (buPROPion SR 150 mg/12 hour oral tablet, sustained release) 1 Tablet(s), Oral, two times a day Routed to [address] [address] fluticasone nasal (fluticasone 50 mcg/inh nasal spray) 1 Waverly(s), Nasal, once a day glucosamine-chondroitin (Osteo Bi-Flex) 1 tablets, Oral, two times a day losartan-hydroCHLOROthiazide (losartan-hydroCHLOROthiazide 100mg-25mg oral tablet) 1 Tablet(s), Oral, once a day (Hyzaar) This is a CHANGE Routed to [address] [address] multivitamin with minerals (Centrum Silver Men's oral tablet) 1 Tablet(s), Oral, once a day naproxen (Naprosyn 500 mg oral tablet) 1 Tablet(s), Oral, two times a day as needed for pain omega-3 polyunsaturated fatty acids (Perry-500 oral capsule) 2 Tablet(s), Oral, once a day omeprazole (omeprazole 20 mg oral delayed release capsule) 1 cap, Oral, once a day Routed to [address] [address] pravastatin (pravastatin 80 mg oral tablet) 1 Tablet(s), Oral, once a day (at bedtime) Routed to [address] [address] *sildenafil (sildenafil 25 mg oral tablet) 1 tablet one hour prior to sexual activity, Oral, once a day as needed for Erectile dysfunction terazosin (Hytrin 1 mg oral capsule) 1 cap, Oral, once a day (at bedtime) Routed to [address] [address] * You have let us [...] of emergency. Electronically Signed By: YOLANDA COLÓN SIGNALS COLLECTION TECHNICIAN Signed On:16-FEB-2016 15:59:22 Additional Information: Source: [facility] POWERCHART Document Id: [id number] ING ASSISTANT PROPERTY MANAGER Miscellaneous - Yolanda Colón APRN, C.N.P. - 02/16/2016 3:35 PM HOUSING ASSISTANT PROPERTY MANAGER Custom Result Letter February 16, 2016 FRANSICO [place]ST[place]O [address] [place] [id number] Dear FRANSICO MACDONALD, Patient examined today on 02/16/2016. Blood pressure in good control at 138/78 Sincerely, YOLANDA COLÓN [address] [place] [address] Electronic Signature Electronically Signed By: YOLANDA COLÓN NP On: February 16, 2016 This document has images extracted. Source: [facility] Dataminr Document Id: [id number] Electronically signed by Cornelia [facility] Center[facility]ess[facility] Stock Sorter [id number] at 08/21/2016 12:01 AM CDT Candido - Katy Shannon, L.P.N. - 02/16/2016 3:24 PM CST ALIYAH-7 ALIYAH-7 Entered On: 02/16/2016 15:24 HOUSING ASSISTANT PROPERTY MANAGER Performed On: 02/16/2016 15:24 HOUSING ASSISTANT PROPERTY MANAGER by KATY SHANNON LPN GAD7 GAD7 Feeling [...] 0 KATY SHANNON LPN - 02/16/2016 15:24 HOUSING ASSISTANT PROPERTY MANAGER Source: [facility] Dataminr Document Id: [id number] HOUSING ASSISTANT PROPERTY MANAGER!10 ING ASSISTANT PROPERTY MANAGER Kavyacellbolivar - Katy Shannon L.P.N. - 02/16/2016 3:19 PM CST Adult Genetic Supervisor Intake/History Adult Genetic Supervisor Intake/History Entered On: 02/16/2016 15:22 HOUSING ASSISTANT PROPERTY MANAGER Performed On: 02/16/2016 15:19 HOUSING ASSISTANT PROPERTY MANAGER by KATY SHANNON LPN Intake Chief Complaint [...] kg/m2 KATY SHANNON LPN - 02/16/2016 15:19 HOUSING ASSISTANT PROPERTY MANAGER General Info Information Given By : Patient Languages : Yemeni Is Patient Female and 13-50 no hysterectomy : No KATY SHANNON LPN - 02/16/2016 15:19 HOUSING ASSISTANT PROPERTY MANAGER Subjective Pain Symptoms : No KATY SHANNON LPN - 02/16/2016 15:19 HOUSING ASSISTANT PROPERTY MANAGER Dependent Habits Exposure to Tobacco Smoke : Other: former Smoking Status : Former smoker Tobacco 2A : Yes Tobacco Use/Currently Using : No Tobacco Use/Last 30 Days : No Tobacco Use/Last 12 months : No Tobacco Last Use/Year : 1995 Alcohol Use : No KATY SHANNON LPN - 02/16/2016 15:19 HOUSING ASSISTANT PROPERTY MANAGER Caffeine Use Grid Caffeine Use : None KATY SHANNON LPN - 02/16/2016 15:19 HOUSING ASSISTANT PROPERTY MANAGER Recreational Drug Use Grid Drug Use : None KATY SHANNON LPN - 02/16/2016 15:19 HOUSING ASSISTANT PROPERTY MANAGER Source: [facility] POWERCHART Document Id: [id number] HOUSING ASSISTANT PROPERTY MANAGER!35 ING ASSISTANT PROPERTY MANAGER Miscellaneous - Katy Shannon, L.P.N. - 02/16/2016 3:18 PM CST Health Assessment Health Assessment Entered On: 02/16/2016 15:18 HOUSING ASSISTANT PROPERTY MANAGER Performed On: 02/16/2016 15:18 HOUSING ASSISTANT PROPERTY MANAGER by KATY SHANNON LPN Health Assessment Complete Health Assessment Complete or Modified : Annual Health Assessment Annual Health Assessment Completed : Yes KATY SHANNON LPN - 02/16/2016 15:18 HOUSING ASSISTANT PROPERTY MANAGER Nutrition Nutrition Risk Factors by History Adult : None KATY SHANNON LPN - 02/16/2016 15:18 HOUSING ASSISTANT PROPERTY MANAGER Functional Current Daily Living Assistance : None KATY SHANNON [facility] - 02/16/2016 15:18 HOUSING ASSISTANT PROPERTY MANAGER Dependent Habits Exposure to Tobacco Smoke : Other: former Smoking Status : Former smoker Tobacco 2A : Yes Tobacco Use/Currently Using : No Tobacco Use/Last 30 Days : No Tobacco Use/Last 12 months : No Tobacco Last Use/Year : 1995 Alcohol Use : No KATY SHANNON [facility] - 02/16/2016 15:18 HOUSING ASSISTANT PROPERTY MANAGER Caffeine Use Grid Caffeine Use : None RICKEYNakulSERACHEIKH Prince [facility] 02/16/2016 15:18 HOUSING ASSISTANT PROPERTY MANAGER Recreational Drug Use Grid Drug Use : None KATY SHANNON Suresh [facility] 02/16/2016 15:18 HOUSING ASSISTANT PROPERTY MANAGER Psychosocial Domestic Abuse Concerns : None Behavioral Health Screen/Safety Assmt : No Sikhism Preference : Faith: Amish RICKEYNakul KATY D [facility] - 02/16/2016 15:18 HOUSING ASSISTANT PROPERTY MANAGER Advance Directive Advanced Directives : No Advance Directive Additional Information : Yes RICKEYNakulSERACHEIKH [place] [facility] 02/16/2016 15:18 HOUSING ASSISTANT PROPERTY MANAGER Educ Needs Learning Style Preference Adult Grid Patient : None Family : None KATY SHANNON Suresh [facility] - 02/16/2016 15:18 HOUSING ASSISTANT PROPERTY MANAGER Source: [facility] POWERCHART Document Id: [id number] HOUSING ASSISTANT PROPERTY MANAGER!34 ING ASSISTANT PROPERTY MANAGER documented in this encounter Plan of Treatment Upcoming Encounters Date Type Specialty Care Team Description 02/11/2022 Appointment Laboratory Medicine Neli Hearn M.D. [address] [place] [phone] (Stephon caldera) 02/14/2022 Office Visit Family Medicine Lilli Hearn M.D. [address] [place] [phone] (Stephon caldera) documented as of this encounter Visit Diagnoses Not on filedocumented in this encounter
--- OUTSIDE RECORDS SUMMARY | 2022-01-28 08:58 | XMS_ITS | Encounter Summary ---
:1945 Author Organization [facility] Address [address] [place] [address] Care Team Providers Name Role Phone Unavailable Primary Care Provider Unavailable Encounter Details Date Type Department Care Team Description 06/10/2014 Hospital Encounter HX [facility] JENNIFERWendy Riojas, CORNER BEAD OPERATOR, C.N.P. 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 - 06/10/2014 9:05 AM CDT [id number] CHIEF COMPLAINT/REASON FOR VISIT Medhat comes in [...] Colón, C.N.P./pos Electronically Signed By: YOLANDA COLÓN REHABILITATION ATTENDANT On: 06/11/2014 07:54 AM Source: [facility] MHSDOLBEYNONRADSYS Document Id: [id number] documented in this encounter Miscellaneous Notes Miscellaneous - Yolanda Colón APRN, C.N.P. - 06/10/2014 9:34 AM CDT Ambulatory Patient Summary [address] [place], [place] [phone] Visit Information Name: FRANSICO MACDONALD [facility] Number: [id number] Current Date: 06/10/2014 09:34:53 Physicians [...] nasal (fluticasone 50 mcg/inh nasal spray) 1 [place](s), Nasal, once a day glucosamine-chondroitin (Osteo Bi-Flex) [...] of emergency. Electronically Signed By: YOLANDA COLÓN REHABILITATION ATTENDANT Signed On:10-JUN-2014 09:34:42 Your Allergies & Intolerances Substance Reaction Symptoms Category Comments Tylenol Drug Your Problem List Problem Status Onset Comments Hypertension Essential (401.9) Active Hypercholesterolemia Active Obesity NOS Active Your Upcoming Appointments Date Time Location Provider 07/16/2014 09:15 [facility] Yolanda Colón NP Attention: Contact your local Clinic if further appointment detail needed. Your Goals/Additional instructions: Source: [facility] POWERCHART Document Id: [id number] Miscellaneous - Yolanda Colón APRN, C.N.P. - 06/10/2014 9:34 AM CDT Ambulatory Discharge Medication List [address] [place], [place] [phone] Visit Information Name: FRANSICO MACDONALD [facility] Number: [id number] Visit Date: 06/10/2014 09:34:52 Attending Provider: YOLANDA COLÓN NP Primary Care Provider: YOLANDA COLÓN REHABILITATION ATTENDANT MERY FRANSICO HINOJOSA has been given the [...] nasal (fluticasone 50 mcg/inh nasal spray) 1 [place](s), Nasal, once a day glucosamine-chondroitin (Osteo Bi-Flex) [...] of emergency. Electronically Signed By: YOLANDA COLÓN REHABILITATION ATTENDANT Signed On:10-JUN-2014 09:34:42 Additional Information: Source: [facility] POWERCHART Document Id: [id number] Candido - Aleja Waters L.PFamiliaNFamilia - 06/10/2014 [...] CDT Psychosocial Domestic Abuse Concerns : None Orthodoxy Preference : No qualifying data available. ALEJA WATERS LPN - 06/10/2014 9:10 CDT Advance Directive Advanced Directives : No Advance Directive Additional Information : Yes ALEJA WATERS LPN - 06/10/2014 9:10 CDT Educ Needs Learning Style Preference Adult Grid Patient : Demonstration, Printed materials Family : Printed materials ALEJA WATERS LPN - 06/10/2014 9:10 CDT Source: [facility] QuinturaCHART Document Id: [id number] CDT!24 Candido - Aleja Waters LFamiliaPFamiliaNFamilia - 06/10/2014 9:10 AM CDT Adult Regional Engineer Intake/History Adult Regional Engineer Intake/History Entered On: 06/10/2014 9:12 CDT Performed [...] 06/10/2014 9:10 CDT General Info Languages : Andorran Is Patient Female and 13-50 no hysterectomy [...] WATERS LPN - 06/10/2014 9:10 CDT Source: [facility] POWERCHART Document Id: [id number] CDT!29 documented in this encounter Plan of Treatment Upcoming Encounters Date Type Specialty Care Team Description 02/11/2022 Appointment Laboratory Medicine Neli Hearn M.D. [address] [place] [phone] (Wo rk) 02/14/2022 Office Visit Family Medicine Lilli Hearn M.D. [address] [place] [phone] (Wo rk) documented as of this encounter Visit Diagnoses Not on filedocumented in this encounter
--- OUTSIDE RECORDS SUMMARY | 2022-01-28 08:58 | XMS_ITS | Encounter Summary ---
:1945 Author Organization [facility] Address [address] [place] [address] Care Team Providers Name Role Phone Unavailable [...] or relatives? How often do you attend confucianism or 1 to 4 times per year 11/2019 confucianism services? 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 - 04/07/2015 12:00 AM CST [id number] Document Contains Addenda SLEEP STUDY REPORT TYPE OF SLEEP STUDY: Split night polysomnography. 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 His [...] the therapeutic portion of the study the fiber technologist asked the patient to sleep on his back but the patient indicated that that was not possible because he had too much back pain when he tried to do so. Chester Payan M.D./pos cc: Yolanda Colón APRN, C.N.P. [facility] in [address] [address] Anel Morgan DC [address] [place] [id number] Electronically Signed By: CHESTER PAYAN MD On: 04/13/2015 07:51 AM Modified by and Electronically Signed by: CHESTER PAYAN MD On: 04/13/2015 07:45 AM Source: [facility] MHSDOLBEYNONRADSYS Document Id: [id number] ERS AND ACQUISITIONS MANAGER documented in this encounter Miscellaneous Notes Miscellaneous - Conversion, Historical Provider Ser - 04/07/2015 11:59 PM MERGERS AND ACQUISITIONS MANAGER Coding Summary-Paper Based CODING DATE: 04/15/2015 FINAL [facility] STATUS: * Discharged to [...] ROMERO Date Saved: 04/15/2015 02:53 pm Source: [facility] POWERCHART Document Id: [id number] documented in this encounter Plan of Treatment Upcoming Encounters Date Type Specialty Care Team Description 02/11/2022 Appointment Laboratory Medicine Neli Hearn M.D. [address] [place] [phone] (Stephon caldera) 02/14/2022 Office Visit Family Medicine Lilli Hearn M.D. [address] [place] [phone] (Stephon caldera) documented as of this encounter Visit Diagnoses Not on filedocumented in this encounter
--- OUTSIDE RECORDS SUMMARY | 2022-01-28 08:58 | XMS_ITS | Encounter Summary ---
:[address] [facility] Address [address] [place] [address] Care Team Providers Name Role Phone Unavailable Primary Care Provider Unavailable Encounter Details Date Type Department Care Team Description 03/18/[address] [facility] Jamie Guzmán M.D. 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 documented as of this encounter Last Filed Vital Signs Vital Sign Reading Time Taken Comments Blood Pressure 164/100 03/18/2015 9:02 AM AUXILIARY EQUIPMENT OPERATOR Pulse 83 03/18/2015 9:02 AM AUXILIARY EQUIPMENT OPERATOR Temperature - - Respiratory Rate 16 03/18/2015 9:02 AM AUXILIARY EQUIPMENT OPERATOR Oxygen Saturation - - Inhaled Oxygen Concentration - - Weight 144 kg (317 lb 7.4 oz) 03/18/2015 9:02 AM AUXILIARY EQUIPMENT OPERATOR Height 172 cm (5' 7.72) 03/18/2015 9:02 AM AUXILIARY EQUIPMENT OPERATOR Body Mass Index 48.67 03/18/2015 9:02 AM AUXILIARY EQUIPMENT OPERATOR documented in this encounter Medications at [...] Payan M.D. - 03/18/2015 8:32 AM CST [id number] CHIEF COMPLAINT/REASON FOR VISIT A sleep medicine [...] sleepiness. He scores just 1 on the Stockwell survey at today's visit. Patient estimates that [...] His sleep study was done over in [place] in May of 2010 and I have [...] a day. Multivitamin with minerals 1 daily. Cecilton-3 fish oil 500 mg 1 daily. Aspirin [...] untreated psoriasis and saw Dr. Cm in [place] regarding this in the past, but he did not want to go on any biologic agents. FAMILY HISTORY Mother with glaucoma. Female relatives with breast cancer. A sister with type 2 diabetes. Cousin with the restless legs syndrome. Otherwise, negative to the best of the patient's recollection. SOCIAL HISTORY . He and his have a home in [place]. The 3 daughters grown and out of the home, 2 in the area 1 in [place]. The patient is a la posta of the area. 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 SKIN: Severe generalized psoriasis. Stockwell Sleepiness Scale score equals 1. IMPRESSION/REPORT/PLAN This [...] another sleep study in order to satisfy [facility] and Medicare requirements. This was scheduled. After [...] Payan M.D./pos cc: Yolanda Colón APRN, C.N.PFamilia [facility] in [address] [address] Anel Morgan D.C. [address] [place] [address] Electronically Signed By: CHESTER PAYAN MD On: 03/23/2015 08:29 AM Modified by and Electronically Signed by: CHESTER PAYAN MD On: 03/23/2015 08:29 AM Source: [facility] MHSDOLBEYNONRADSYS Document Id: [id number] LIARY EQUIPMENT OPERATOR documented in this encounter Miscellaneous Notes Miscellaneous - Chester Payan M.D. - 03/18/2015 10:09 AM CST Ambulatory Patient Summary [address] [id number] Visit Information Name: FRANSICO MACDONALD [facility] Number: [id number] Current Date: 03/18/2015 10:09:20 Physicians Attending Provider: CHESTER PAYAN MD Primary Care Provider: YOLANDA COLÓN [employer] ROSEMARIESTELLA FRANSICO HINOJOSA has been given the [...] nasal (fluticasone 50 mcg/inh nasal spray) 1 [place](s), Nasal, once a day glucosamine-chondroitin (Osteo Bi-Flex) 1 tablets, Oral, two times a day losartan-hydrochlorothiazide (losartan-hydrochlorothiazide 100 mg-25 mg oral tablet) 1 Tablet(s), Oral, once a day (Hyzaar) multivitamin with minerals (Centrum Silver Men's oral tablet) 1 Tablet(s), Oral, once a day naproxen (Naprosyn 500 mg oral tablet) 1 Tablet(s), Oral, two times a day as needed for pain omega-3 polyunsaturated fatty acids (Cecilton-500 oral capsule) 1 cap, Oral, once a [...] asleep for sleep study New Routed to [address] [address] Stop Taking the Following Medications: Medication list [...] if you dont have one. Go to [email or web address] and click on Create Your Account. Then, follow the directions to complete the online form. Youll be asked for your [facility] number which you can find at the top of this document. Your Goals/Additional instructions: Source: [facility] POWERCHART Document Id: [id number] LIARY EQUIPMENT OPERATOR Miscellaneous - Chester Payan M.D. - 03/18/2015 10:09 AM CST Ambulatory Discharge Medication List [address] [id number] Visit Information Name: FRANSICO MACDONALD [facility] Number: [id number] Visit Date: 03/18/2015 10:09:19 Attending Provider: CHESTER PAYAN MD Primary Care Provider: YOLANDA COLÓN NP FRANSICO MACDONALD MICAELA has been given the [...] nasal (fluticasone 50 mcg/inh nasal spray) 1 [place](s), Nasal, once a day glucosamine-chondroitin (Osteo Bi-Flex) 1 tablets, Oral, two times a day losartan-hydrochlorothiazide (losartan-hydrochlorothiazide 100 mg-25 mg oral tablet) 1 Tablet(s), Oral, once a day (Hyzaar) multivitamin with minerals (Centrum Silver Men's oral tablet) 1 Tablet(s), Oral, once a day naproxen (Naprosyn 500 mg oral tablet) 1 Tablet(s), Oral, two times a day as needed for pain omega-3 polyunsaturated fatty acids (Cecilton-500 oral capsule) 1 cap, Oral, once a [...] asleep for sleep study New Routed to [address] [address] Stop Taking the Following Medications: [...] MD Signed On:18-MAR-2015 10:04:57 Additional Information: Source: [employer] Document Id: [id number] LIARY EQUIPMENT OPERATOR Candido - Chester Payan M.D. - 03/18/2015 10:00 AM CST Bar Attendant Instructions Bar Attendant Instructions Entered On: 03/18/2015 10:00 AUXILIARY EQUIPMENT OPERATOR Performed On: 03/18/2015 10:00 AUXILIARY EQUIPMENT OPERATOR by CHESTER PAYAN MD Bar Attendant Instructions General Instructions : Split Night CPAP at AHI > 5/Hr CHESTER PAYAN MD - 03/18/2015 10:00 AUXILIARY EQUIPMENT OPERATOR Source: [employer] Document Id: [id number] AUXILIARY EQUIPMENT OPERATOR!3 LIARY EQUIPMENT OPERATOR Candido - Niyah Hartmann, R.M.A. - 03/18/2015 9:07 AM CST Stockwell Sleepiness Scale Stockwell Sleepiness Scale Entered On: 03/18/2015 9:07 AUXILIARY EQUIPMENT OPERATOR Performed On: 03/18/2015 9:07 AUXILIARY EQUIPMENT OPERATOR by NIYAH HARTMANN [facility] Stockwell Sleepiness Scale Stockwell sitting and reading : No chance of dozing Stockwell watching TV : Slight chance of dozing Stockwell sitting in public : No chance of dozing Stockwell passenger in car : No chance of dozing Stockwell in a car stopped in traffic : No chance of dozing Stockwell Lying down to rest : No chance of dozing Stockwell sitting and talking : No chance of dozing Stockwell sitting quietly after lunch : No chance of dozing Stockwell Total Score : 1 NIYAH HARTMANN - 03/18/2015 9:07 AUXILIARY EQUIPMENT OPERATOR Source: [facility] POWERCHART Document Id: [id number] AUXILIARY EQUIPMENT OPERATOR!11 LIARY EQUIPMENT OPERATOR Miscellaneous - Niyah Hartmann R.MSolange - 03/18/2015 9:02 AM CST Adult Former Hand Intake/History Adult Former Hand Intake/History Entered On: 03/18/2015 9:05 AUXILIARY EQUIPMENT OPERATOR Performed On: 03/18/2015 9:02 AUXILIARY EQUIPMENT OPERATOR by NIYAH HARTMANN [facility] Intake Chief Complaint : Referred by Adelina [...] Mass Index : 48.67 kg/m2 NIYAH HARTMANN [facility] - 03/18/2015 9:02 AUXILIARY EQUIPMENT OPERATOR General Info Information Given By : Patient Languages : Barbadian Is Patient Female and 13-50 no hysterectomy : No NIYAH HARTMANN [facility] - 03/18/2015 9:02 AUXILIARY EQUIPMENT OPERATOR Subjective Pain Symptoms : No NIYAH HARTMANN [facility] - 03/18/2015 9:02 AUXILIARY EQUIPMENT OPERATOR Dependent Habits Smoking Status : Never smoker Tobacco 2A : No Alcohol Use : Yes NIYAH HARTMANN [facility] - 03/18/2015 9:02 AUXILIARY EQUIPMENT OPERATOR Caffeine Use Grid Caffeine Use : None Comments (Comment: mostly decaf coffee [NIYAH HARTMANN [facility] - 03/18/2015 9:02 AUXILIARY EQUIPMENT OPERATOR] ) NIYAH HARTMANN [facility] - 03/18/2015 9:02 AUXILIARY EQUIPMENT OPERATOR Recreational Drug Use Grid Drug Use : None NIYAH HARTMANN - 03/18/2015 9:02 AUXILIARY EQUIPMENT OPERATOR Source: [facility] POWERCHART Document Id: [id number] AUXILIARY EQUIPMENT OPERATOR!35 LIARY EQUIPMENT OPERATOR documented in this encounter Plan of Treatment Upcoming Encounters Date Type Specialty Care Team Description 02/11/2022 Appointment Laboratory Medicine Neli Hearn M.D. [address] [place] [phone] (Wo rk) 02/14/2022 Office Visit Family Medicine Lilli Hearn M.D. [address] [place] [phone] (Wo rk) documented as of this encounter Visit Diagnoses Not on filedocumented in this encounter
--- OUTSIDE RECORDS SUMMARY | 2022-01-28 08:58 | XMS_ITS | Encounter Summary ---
:1945 Author Organization [facility] Address [address] [place] [address] Care Team Providers Name Role Phone Unavailable Primary Care Provider Unavailable Encounter Details Date Type Department Care Team Description 04/11/2016 Hospital Encounter HX [facility] MAQN Yolanda [place], DEPUTY SHERIFF K9 HANDLER, C.N.P. 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 documented as of this encounter Last Filed Vital Signs Vital Sign Reading Time Taken Comments Blood Pressure - - Pulse - - Temperature - - Respiratory Rate - - Oxygen Saturation - - Inhaled Oxygen Concentration - - Weight - - Height 176 cm (5' 9.29) 04/11/2016 8:52 AM ELECTROLYTIC ETCHER Body Mass Index - - documented in [...] IV Peripheral IV Entered On: 04/11/2016 9:14 ELECTROLYTIC ETCHER Performed On: 04/11/2016 9:10 ELECTROLYTIC ETCHER by IFEANYI AVILA RT(R) Peripheral IV Peripheral IV Assess/Intervention Grid Peripheral IV #1 IV Activity : Discontinue (Comment: BY HOLLIS KURTZ [IFEANYI AVILA RT(R) - 04/11/2016 9:13 ELECTROLYTIC ETCHER] ) Removal : Catheter intact, Hemostasis within expected timeframe Number of Attempts : 1 Date of Insertion : 04/11/2016 ELECTROLYTIC ETCHER Discontinued Date : 04/11/2016 ELECTROLYTIC ETCHER IV Site : Hand Laterality : Right Catheter Size : 20 Catheter Type : Over the needle Site Condition : No complications IFEANYI AVILA RT(R) - 04/11/2016 9:13 ELECTROLYTIC ETCHER Source: [employer] Document Id: [id number] ELECTROLYTIC ETCHER!14 TROLYTIC ETCHER Ifeanyi Avila R.T.(Sadie)(CT)Kirstie(R) - 04/11/2016 9:05 AM CST Peripheral IV Peripheral IV Entered On: 04/11/2016 9:13 ELECTROLYTIC ETCHER Performed On: 04/11/2016 9:05 ELECTROLYTIC ETCHER by IFEANYI AVILA(R) Peripheral IV Peripheral IV Assess/Intervention Grid Peripheral IV #1 IV Activity : Start (Comment: BY HOLLIS KURTZ [IFEANYI AVILA RT(R) - 04/11/2016 9:12 ELECTROLYTIC ETCHER] ) Number of Attempts : 1 Date of Insertion : 04/11/2016 ELECTROLYTIC ETCHER IV Site : Hand Laterality : Right Catheter Size : 20 Catheter Type : Over the needle IFEANYI AVILA RT(R) - 04/11/2016 9:12 ELECTROLYTIC ETCHER Source: [employer] Document Id: [id number] ELECTROLYTIC ETCHER!11 TROLYTIC ETCHER documented in this encounter Miscellaneous Notes Miscellaneous - Conversion, Historical Provider Ser - 04/12/2016 12:41 PM ELECTROLYTIC ETCHER Coding Summary-Paper Based CODING DATE: 04/12/2016 FINAL [facility] STATUS: * Discharged to Home or [...] MOON Date Saved: 04/12/2016 12:41 pm Source: [facility] Document Id: [id number] Miscellaneous - Yolanda Colón, AMBER, C.N.P. - 04/12/2016 8:23 AM ELECTROLYTIC ETCHER Results Notification Document Contains Addenda Addendum by TIFFANY ELLIS LPN on April 12, 2016 09:28:56 ELECTROLYTIC ETCHER Pt. notified. 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 Given that it continues to enlarge, if he would like to meet with General surgery for removal, will be happy to set that up for him. Results: Date Result Type Result Name 04/11/2016 10:[address] Neck w/ contrast [facility] Document Id: [id number] Electronically signed by Conversion, Health system Rubber Compounder Supervisor [id number] at 09/06/2016 3:17 AM CDT documented in this encounter Plan of Treatment Upcoming Encounters Date Type Specialty Care Team Description 02/11/2022 Appointment Laboratory Medicine Neli Hearn M.D. [facility] [place] [phone] (Wo rk) 02/14/2022 Office Visit Family Medicine Lilli Hearn M.D. [address] [place] [phone] (Wo rk) documented as of this encounter Procedures Procedure Name Priority Date/Time Associated Diagnosis Comme nts CT NECK WITH IV Routine 04/11/2016 9:10 AM Result s for this CONTRAST ELECTROLYTIC ETCHER procedure are i n the results section. documented in this encounter Results CT Neck with IV Contrast (04/11/2016 9:10 AM ELECTROLYTIC ETCHER) Anatomical Region Laterality Modality Neck Computed Tomography Specimen (Source) Anatomical Collection Method Collection Time Re ceived Time Location / / Volume Laterality 04/11/2016 9:10 AM ELECTROLYTIC ETCHER Addenda Addendum by Provider, Rachel Gusman 04/11/2016 9:10 AM ELECTROLYTIC ETCHER RAD^^^MA CT Neck w/ contrast 04/11/2016 09:10:26 Impressions 04/11/2016 10:31 AM ELECTROLYTIC ETCHER A 9.4 x 3.8 x 6.0 cm (ML, AP, CC) fatty mass in the posterior midline subcutaneous soft tiss ues at the neck base, with a few thin septations, is most compatible with a lipoma. Suggest clinical follow-up. If the mass is enlar ging, further evaluation with MRI could be considered. Narrative 04/11/2016 10:31 AM ELECTROLYTIC ETCHER EXAM: CT neck with contrast INDICATION: soft [...] with MRI could be considered. Hollis Kurtz R.Jenna(Sadie)(CT), R.TFamilia(R) IMG CT PROCEDURES documented in this encounter Visit Diagnoses Not on filedocumented in this encounter
--- OUTSIDE RECORDS SUMMARY | 2022-01-28 08:58 | XMS_ITS | Encounter Summary ---
:1945 Author Organization [facility] Address [address] [place] [address] Care Team Providers Name Role Phone Unavailable Primary Care Provider Unavailable Encounter Details Date Type Department Care Team Description 01/14/2014 Hospital Encounter [facility]X [facility] Wendy Ríos, AMBER, C.N.P. 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 - 01/14/2014 3:04 PM CDT [id number] CHIEF COMPLAINT/REASON FOR VISIT Medhat comes in today for refills of his medications, blood work and to discuss some concerns. HISTORY OF PRESENT ILLNESS Medhat has gone on the [employer] diet and has lost 30 pounds. He states he is feeling very good about his progress. His overall joints feel much better. He notices his energy has improved. His shortness of breath has decreased and he is very motivated to continue with this plan. He has started exercising. Both he and his are doing the [employer] diet, and Medhat has actually taken over [...] a considerable amount of weight already. SKIN: [place] and warm. HEENT: Negative. CHEST: Lungs clear [...] treatment plan and will follow up accordingly. Nakul Bentley.N.P./pos Electronically Signed By: YOLANDA COLÓN CUSTOMER AGENT On: 01/22/2014 03:17 PM Source: [facility] MHSDOLBEYNONRADSYS Document Id: [id number] documented in this encounter Miscellaneous Notes Miscellaneous - Yolanda Colón APRN, C.N.P. - 01/16/2014 12:51 PM CDT Results Notification Document Contains Addenda Addendum by RICARDO WATERS LPN on 17 January 2014 15:19:05 CDT Pt notified Addendum by RICARDO WATERS LPN on 17 January 2014 08:41:43 CDT [facility] From: YOLANDA COLÓN CUSTOMER AGENT To: RICARDO WATERS LPN; Sent: 01/16/2014 12:51:52 [...] PSA 1.8 ng/mL ( - <=4.5) Source: [facility] POWERCHART Document Id: [id number] Electronically signed by Conversion, [facility] [employer] [id number] at 08/23/2016 12:07 AM CDT Miscellaneous - Yolanda Colón APRN, C.N.P. - 01/14/2014 3:52 PM CDT Ambulatory Patient Summary [address] [id number] Visit Information Name: FRANSICO MACDONALD [facility] Number: [id number] Current Date: 01/14/2014 15:52:36 Physicians Attending Provider: YOLANDA COLÓN CUSTOMER AGENT Primary Care Provider: YOLANDA COLÓN CUSTOMER AGENT FRANSICO MACDONALD has been given the following [...] Oral, two times a day Routed to [address] [address] fluticasone nasal (fluticasone 50 mcg/inh nasal spray) 1 [place](s), Nasal, once a day glucosamine-chondroitin (Osteo Bi-Flex) 1 tablets, Oral, two times a day hydrochlorothiazide (hydrochlorothiazide 25 mg oral tablet) 1 Tablet(s), Oral, once a day Routed to [address] [address] losartan (losartan 100 mg oral tablet) 1 Tablet(s), Oral, once a day Routed to [address] [address] Misc Prescription (Misc Prescription) 2, once a day Misc Prescription (Misc Prescription) 2 Tablet(s), once a day digestive health naproxen (Naprosyn 500 mg oral tablet) 1 Tablet(s), Oral, two times a day as needed for pain omeprazole (omeprazole 20 mg oral delayed release capsule) 1 cap, Oral, once a day Routed to [address] [address] pravastatin (pravastatin 80 mg oral tablet) 1 Tablet(s), Oral, once a day (at bedtime) Routed to [address] [address] sildenafil (sildenafil 25 mg oral tablet) 1 tablet one hour prior to sexual activity, Oral, once a day as needed for Erectile dysfunction New Routed to [address] [address] terazosin (Hytrin 1 mg oral capsule) 1 cap, Oral, once a day (at bedtime) Routed to [address] [address] Stop Taking the Following Medications: [...] of emergency. Electronically Signed By: YOLANDA COLÓN CUSTOMER AGENT Signed On:14-JAN-2014 15:52:22 Your Allergies & Intolerances Substance Reaction Symptoms Category Comments Tylenol Drug Your Problem List Problem Status Onset Comments Hypertension Essential (401.9) Active Hypercholesterolemia Active Obesity NOS Active Your Upcoming Appointments Date Time Location Provider No Appointments found Attention: Contact your local Clinic if further appointment detail needed. Your Goals/Additional instructions: Source: [facility] POWERCHART Document Id: [id number] Miscellaneous - Yolanda Colón APRN, C.N.P. - 01/14/2014 3:52 PM CDT Ambulatory Discharge Medication List [address] [id number] Visit Information Name: FRANSICO MACDONALD [facility] Number: [id number] Visit Date: 01/14/2014 15:52:34 Attending Provider: YOLANDA COLÓN CUSTOMER AGENT Primary Care Provider: YOLANDA COLÓN CUSTOMER AGENT FRANSICO MACDONALD has been given the following [...] Oral, two times a day Routed to [address] [address] fluticasone nasal (fluticasone 50 mcg/inh nasal spray) 1 [place](s), Nasal, once a day glucosamine-chondroitin (Osteo Bi-Flex) 1 tablets, Oral, two times a day hydrochlorothiazide (hydrochlorothiazide 25 mg oral tablet) 1 Tablet(s), Oral, once a day Routed to [address] [address] losartan (losartan 100 mg oral tablet) 1 Tablet(s), Oral, once a day Routed to [address] [address] Misc Prescription (Misc Prescription) 2, once a day Misc Prescription (Misc Prescription) 2 Tablet(s), once a day digestive health naproxen (Naprosyn 500 mg oral tablet) 1 Tablet(s), Oral, two times a day as needed for pain omeprazole (omeprazole 20 mg oral delayed release capsule) 1 cap, Oral, once a day Routed to [address] [address] pravastatin (pravastatin 80 mg oral tablet) 1 Tablet(s), Oral, once a day (at bedtime) Routed to [address] [address] sildenafil (sildenafil 25 mg oral tablet) 1 tablet one hour prior to sexual activity, Oral, once a day as needed for Erectile dysfunction New Routed to [address] [address] terazosin (Hytrin 1 mg oral capsule) 1 cap, Oral, once a day (at bedtime) Routed to [address] [address] Stop Taking the Following Medications: [...] of emergency. Electronically Signed By: YOLANDA COLÓN CUSTOMER AGENT Signed On:14-JAN-2014 15:52:22 Additional Information: Source: [facility] POWERCHART Document Id: [id number] Miscellaneous - Yolanda Colón APRN, C.N.P. - [...] ft 8 inch(es), 68 inch(es)) YOLANDA COLÓN CUSTOMER AGENT - 01/14/2014 15:45 CDT Source: [employer] Document Id: [id number] CDT!6 Miscellaneous - Katy Molina L.P.N. - 01/14/2014 3:19 PM CDT Ambulatory Vitals Height Weight Ambulatory Vitals Height Weight Entered On: 01/14/2014 15:19 CDT Performed On: 01/14/2014 15:19 CDT by KATY MOLINA LPN Vitals/Ht/Wt Systolic Blood Pressure : 160 mmHg (HI) Diastolic Blood Pressure : 90 mmHg (HI) NIBP Mean : 113 mmHg Height : 172 cm(Converted to: 5 ft 8 inch(es), 68 inch(es)) KATY MOLINA LPN - 01/14/2014 15:19 CDT Source: [employer] Document Id: [id number] CDT!6 Miscellaneous - Katy Molina L.P.N. 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 Entered On: 01/14/2014 15:19 CDT Performed On: 01/14/2014 15:16 CDT by KATY MOLINA LPN Intake Chief Complaint : annual refills [...] Body Mass Index : 48.34 kg/m2 KATY MOLINA [facility] - 01/14/2014 15:16 CDT General Info Information Given By : Patient Languages : Moldovan Is Patient Female and 13-50 no hysterectomy : No KATY MOLINA [facility] - 01/14/2014 15:16 CDT Subjective Pain Symptoms : No KATY MOLINA [facility] - 01/14/2014 15:16 CDT Dependent Habits Tobacco Use/Currently Using : No Smoking Status : Former smoker KATY MOLINA [facility] - 01/14/2014 15:16 CDT Tobacco Use Grid Last Use : 40 YEARS AGO KATY MOLINA [facility] - 01/14/2014 15:16 CDT Alcohol Use : No KATY MOLINA [facility] - 01/14/2014 15:16 CDT Source: [facility] [employer] Document Id: [id number] CDT!27 Telephone Encounter - Suresh, Brittany Zee LFamiliaPFamiliaNFamilia - 12/25/2013 3:55 PM CDT shingles Document Contains Addenda Addendum by ADAMARIS SEVILLA RN on 26 December 2013 15:46:23 CDT talked to Fransico and pt will get the vaccination Addendum by ADAMARIS SEVILLA RN on 26 December 2013 09:10:18 CDT LEFT MESSAGE Addendum by YOLANDA COLÓN CUSTOMER AGENT on 26 December 2013 08:52:19 CDT From: YOLANDA COLÓN CUSTOMER AGENT To: YUMIKO [facility] Nurse; Sent: 12/26/2013 08:52:19 CDT Subject: RE: shingles Please let him know that shingles is not contagious, but vaccination is advised. Addendum by YOLANDA COLÓN NP on 26 December 2013 08:51:53 CDT From: YOLANDA COLÓN CUSTOMER AGENT To: YUMIKO [place] [facility] Nurse; Sent: 12/26/2013 08:51:53 CDT Subject: RE: shingles yes. ok for a RX for zostivax Addendum by MERVIN JAUREGUI RN on 25 December 2013 16:42:15 CDT From: MERVIN JAUREGUI RN ([facility] Nurse) To: YOLANDA COLÓN CUSTOMER AGENT; Sent: 12/25/2013 16:42:15 CDT Subject: FW: shingles Patient's was just diagnosed with Shingles, patient is wondering if you would recommend he get the shingles vaccine. Lissy advise what you would recommend. Addendum by KATY MOLINA LPN on 25 December 2013 16:40:59 CDT From: KATY MOLINA LPN To: YMUIKO [place] [facility] Nurse; Sent: 12/25/2013 16:40:59 CDT Subject: RE: shingles I don't see anything documented in chart. Addendum by MERVIN JAUREGUI RN on 25 December 2013 16:19:40 CDT From: MERVIN JAUREGUI RN (YUMIKO [facility] Nurse) To: KATY MOLINA LPN; Sent: 12/25/2013 16:19:40 CDT Subject: FW: shingles Please check paper chart for shingles vaccine, nothing in [facility] or immunization in [employer] From: BRITTANY VALLEJO LPN To: YUMIKO [facility] Nurse; Sent: 12/25/2013 15:55:11 CDT Subject: shingles Caller is: ( x ) Patient ( ) Mother ( ) Father ( ) Spouse ( ) Daughter ( ) Son ( ) Pharmacy ( ) Other: Physician: Yolanda Colón Patient MRN #: Reason for Call: Message: [...] back cell phone number ( ) Source: [facility] NextVR Document Id: [id number] Electronically signed by Cornelia, [facility] [employer] [id number] at 08/23/2016 12:07 AM CDT documented in this encounter Plan of Treatment Upcoming Encounters Date Type Specialty Care Team Description 02/11/2022 Appointment Laboratory Medicine Neli Hearn M.D. [address] [place] [phone] (Wo verenice) 02/14/2022 Office Visit Family Medicine Lilli Hearn M.D. [address] [place] [phone] (Stephon caldera) documented as of this encounter [...] Volume Laterality Blood 01/14/2014 4:10 PM CDT Nakul Villatoro APRN.N.P. LAB BLOOD ADD-ON Performing Organization Address City/State/ZIP [...] POWERCHART [facility] eGFR Black/ >60.0 >=60.0 POWERCHART Martiniquais [facility] Bilirubin, Total, S 0.7 <=1.2 MGDL [...]
--- OUTSIDE RECORDS SUMMARY | 2022-01-28 08:58 | XMS_ITS | Encounter Summary ---
:1945 Author Organization [facility] Address [address] [place] [address] Care Team Providers Name Role Phone Unavailable Primary Care Provider Unavailable Encounter Details Date Type Department Care Team Description 04/07/2015 Hospital Encounter HX [facility] JENNIFERWendy Riojas, CATHETER FINISHER AND INSPECTOR, C.N.P. 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 - 04/07/2015 9:08 AM CST [id number] CHIEF COMPLAINT/REASON FOR VISIT He is here to follow up on his blood pressure. HISTORY OF PRESENT ILLNESS Mehdat is a 69-year-old male who was seen [...] daily. Naprosyn as needed for arthritic pain. [place]-3 daily. Omeprazole 20 daily. Osteo Bi-Flex. Pravastatin [...] Pedal pulses are strong and palpable. SKIN: [place] and warm. IMPRESSION/REPORT/PLAN Benign essential hypertension in [...] APRN, C.N.P./pos Electronically Signed By: YOLANDA COLÓN FURNITURE ASSEMBLER On: 04/07/2015 03:12 PM Source: [facility] MHSDOLBEYNONRADSYS Document Id: [id number] ORDER HAND documented in this encounter Miscellaneous Notes Miscellaneous - Yolanda Colón APRN, C.N.P. - 04/07/2015 10:05 AM CUT ORDER HAND Ambulatory Patient Summary [facility] [address] [place], [place] [phone] Visit Information Name: FRANSICO MACDONALD [facility] Number: [id number] Current Date: 04/07/2015 10:05:48 Physicians [...] Tablet(s), Oral, once a day Routed to [address] [id number] aspirin (aspirin 81 mg oral tablet) 1 Tablet(s), Oral, once a day buPROPion (buPROPion SR 150 mg/12 hour oral tablet, sustained release) 1 Tablet(s), Oral, two times a day fluticasone nasal (fluticasone 50 mcg/inh nasal spray) 1 [place](s), Nasal, once a day glucosamine-chondroitin (Osteo Bi-Flex) 1 tablets, Oral, two times a day losartan-hydrochlorothiazide (losartan-hydrochlorothiazide 100 mg-25 mg oral tablet) 1 Tablet(s), Oral, once a day (Hyzaar) multivitamin with minerals (Centrum Silver Men's oral tablet) 1 Tablet(s), Oral, once a day naproxen (Naprosyn 500 mg oral tablet) 1 Tablet(s), Oral, two times a day as needed for pain omega-3 polyunsaturated fatty acids ([place]-500 oral capsule) 1 cap, Oral, once a [...] of emergency. Electronically Signed By: YOLANDA COLÓN FURNITURE ASSEMBLER Signed On:07-APR-2015 10:05:37 Your Allergies & Intolerances Substance Reaction Symptoms Category Comments Tylenol Drug Your Problem List Problem Status Onset Comments Hypertension Essential (401.9) Active Hypercholesterolemia Active Obesity NOS Active Psoriasis NOS Active Your Upcoming Appointments Date Time Location Provider 04/07/2015 19:00 [facility] Sleep Room 1 04/16/2015 08:45 EMILY Dumas [...] if you dont have one. Go to [email or web address] and click on Create Your Account. Then, follow the directions to complete the online form. Youll be asked for your [facility] number which you can find at the top of this document. Your Goals/Additional instructions: Source: [facility] POWERCHART Document Id: [id number] ORDER HAND Miscellaneous - Yolanda Colón APRN, C.N.P. - 04/07/2015 10:05 AM CUT ORDER HAND Ambulatory Discharge Medication List [address] [id number] Visit Information Name: FRANSICO MACDONALD [facility] Number: [id number] Visit Date: 04/07/2015 10:05:47 Attending Provider: YOLANDA COLÓN FURNITURE ASSEMBLER Primary Care Provider: YOLANDA COLÓN FURNITURE ASSEMBLER FRANSICO MACDONALD has been given the following [...] Tablet(s), Oral, once a day Routed to [address] [address] aspirin (aspirin 81 mg oral tablet) 1 Tablet(s), Oral, once a day buPROPion (buPROPion SR 150 mg/12 hour oral tablet, sustained release) 1 Tablet(s), Oral, two times a day fluticasone nasal (fluticasone 50 mcg/inh nasal spray) 1 [place](s), Nasal, once a day glucosamine-chondroitin (Osteo Bi-Flex) 1 tablets, Oral, two times a day losartan-hydrochlorothiazide (losartan-hydrochlorothiazide 100 mg-25 mg oral tablet) 1 Tablet(s), Oral, once a day (Hyzaar) multivitamin with minerals (Centrum Silver Men's oral tablet) 1 Tablet(s), Oral, once a day naproxen (Naprosyn 500 mg oral tablet) 1 Tablet(s), Oral, two times a day as needed for pain omega-3 polyunsaturated fatty acids ([place]-500 oral capsule) 1 cap, Oral, once a [...] of emergency. Electronically Signed By: YOLANDA COLÓN FURNITURE ASSEMBLER Signed On:07-APR-2015 10:05:37 Additional Information: [facility] Document Id: [id number] ORDER HAND Miscellaneous - Yolanda Colón APRN, C.N.P. - 04/07/2015 9:39 AM CUT ORDER HAND Ambulatory Vitals Height Weight Ambulatory Vitals Height Weight Entered On: 04/07/2015 9:39 CUT ORDER HAND Performed On: 04/07/2015 9:39 CUT ORDER HAND by YOLANDA COLÓN NP Vitals/Ht/Wt Systolic Blood Pressure : 140 mmHg Diastolic Blood Pressure : 80 mmHg NIBP Mean : 100 mmHg Height : 172 cm(Converted to: 5 ft 8 inch(es), 68 inch(es)) YOLANDA COLÓN FURNITURE ASSEMBLER - 04/07/2015 9:39 CUT ORDER HAND [facility] Document Id: [id number] CUT ORDER HAND!6 ORDER HAND Miscellaneous - Aleja Waters L.P.N. 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 Entered On: 04/07/2015 9:19 CUT ORDER HAND Performed On: 04/07/2015 9:16 CUT ORDER HAND by ALEJA WATERS LPN Intake Chief Complaint [...] kg/m2 ALEJA WATERS LPN - 04/07/2015 9:16 CUT ORDER HAND General Info Languages : Swiss Is Patient Female and 13-50 no hysterectomy : No ALEJA WATERS LPN - 04/07/2015 9:16 CUT ORDER HAND Subjective Pain Symptoms : No ALEJA WATERS LPN - 04/07/2015 9:16 CUT ORDER HAND Dependent Habits Smoking Status : Never smoker Tobacco 2A : No Tobacco Use/Currently Using : No Tobacco Use/Last 30 Days : No Tobacco Use/Last 12 months : No ALEJA WATERS LPN - 04/07/2015 9:16 CUT ORDER HAND Caffeine Use Grid Caffeine Use : None ALEJA WATERS LPN - 04/07/2015 9:16 CUT ORDER HAND Recreational Drug Use Grid Drug Use : None ALEJA WATERS LPN - 04/07/2015 9:16 CUT ORDER HAND Source: [facility] POWERCHART Document Id: [id number] CUT ORDER HAND!31 ORDER HAND documented in this encounter Plan of Treatment Upcoming Encounters Date Type Specialty Care Team Description 02/11/2022 Appointment Laboratory Medicine Neli Hearn M.D. [address] [place] [phone] (Wo rk) 02/14/2022 Office Visit Family Medicine Lilli Hearn M.D. [address] [place] [phone] (Wo rk) documented as of this encounter Visit Diagnoses Not on filedocumented in this encounter
--- OUTSIDE RECORDS SUMMARY | 2022-01-28 08:58 | XMS_ITS | Encounter Summary ---
:1945 Author Organization [facility] Address [address] [place] [address] Care Team Providers Name Role Phone Unavailable Primary Care Provider Unavailable Encounter Details Date Type Department Care Team Description 06/03/2014 Hospital Encounter HX [facility] JENNIFERWendy Riojas, AMBER, C.N.P. 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 - 06/03/2014 9:41 AM CDT [id number] CHIEF COMPLAINT/REASON FOR VISIT Medhat is here [...] 1 week for possible retreatment and re-evaluation. Wkyz-edh-xfceyni analgesics for discomfort as needed. He is in agreement with this treatment plan. Linda BentleyNIsadora/pos Electronically Signed By: YOLANDA COLÓN CHARTERED ACCOUNTANT On: 06/04/2014 11:47 AM Source: [facility] MHSDOLBEYNONRADSYS Document Id: [id number] documented in this encounter Miscellaneous Notes Miscellaneous - Yolanda Colón APRN C.N.Ryne. - 06/03/2014 10:40 AM CDT Ambulatory Patient Summary [address] [id number] Visit Information Name: FRANSICO MACDONALD MICAELA [facility] Number: [id number] Current Date: 06/03/2014 10:40:20 Physicians [...] nasal (fluticasone 50 mcg/inh nasal spray) 1 [place](s), Nasal, once a day glucosamine-chondroitin (Osteo Bi-Flex) [...] of emergency. Electronically Signed By: YOLANDA COLÓN CHARTERED ACCOUNTANT Signed On:03-JUN-2014 10:40:08 Your Allergies & Intolerances Substance Reaction Symptoms Category Comments Tylenol Drug Your Problem List Problem Status Onset Comments Hypertension Essential (401.9) Active Hypercholesterolemia Active Obesity NOS Active Your Upcoming Appointments Date Time Location Provider 06/10/2014 09:15 Yolanda Nunes NP 07/16/2014 09:15 Yolanda Nunes NP Attention: Contact your local Clinic if further appointment detail needed. Your Goals/Additional instructions: Source: [facility] POWERCHART Document Id: [id number] Miscellaneous - Yolanda Colón APRN, C.N.P. - 06/03/2014 10:40 AM CDT Ambulatory Discharge Medication List [address] [place], [place] [phone] Visit Information Name: FRANSICO MACDONALD [facility] Number: [id number] Visit Date: 06/03/2014 10:40:18 Attending [...] nasal (fluticasone 50 mcg/inh nasal spray) 1 [place](s), Nasal, once a day glucosamine-chondroitin (Osteo Bi-Flex) [...] of emergency. Electronically Signed By: YOLANDA COLÓN CHARTERED ACCOUNTANT Signed On:03-JUN-2014 10:40:08 Additional Information: Source: [facility] POWERCHART Document Id: [id number] Miscellaneous - Yaa Carpenter R.M.A. 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 [address] [place] [phone] (Wo rk) 02/14/2022 Office Visit Family Medicine Lilli Hearn M.D. [address] [place] [phone] (Wo rk) documented as of this encounter Visit Diagnoses Not on filedocumented in this encounter
--- OUTSIDE RECORDS SUMMARY | 2022-01-28 08:58 | XMS_ITS | Encounter Summary ---
:1945 Author Organization [facility] Address [address] [place] [address] Care Team Providers Name Role Phone Unavailable Primary Care Provider Unavailable Encounter Details Date Type Department Care Team Description 09/02/2015 Hospital Encounter [facility]X [facility] Wendy Ríos, HEMMER LOCKSTITCH, C.N.P. 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 - 09/02/2015 2:43 PM CDT [id number] CHIEF COMPLAINT/REASON FOR VISIT Fransico comes in today for follow up tailbone pain and refill of medications. HISTORY OF PRESENT ILLNESS The patient presented to the emergency room with complaints of left hip pain and left lower back pain. 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 Fluticasone. Hytrin. Losartan. Hydrochlorothiazide. Naprosyn. Avis 500. Omeprazole. Osteo Bi-Flex. Pravastatin. Viagra. Valium [...] APRN, C.N.P./pos Electronically Signed By: YOLANDA COLÓN DUCK FARMER On: 09/04/2015 10:27 AM Source: [facility] MHSDOLBEYNONRADSYS Document Id: [id number] documented in this encounter Miscellaneous Notes Miscellaneous - Yolanda Colón APRN, C.N.P. - 09/02/2015 3:11 PM CDT Ambulatory Patient Summary [place] [place], [place] [phone] Visit Information Name: FRANSICO MACDONALD LULUNEREIDA [facility] Number: [id number] Current Date: 09/02/2015 15:11:19 Physicians [...] nasal (fluticasone 50 mcg/inh nasal spray) 1 Wat[place](s), Nasal, once a day glucosamine-chondroitin (Osteo Bi-Flex) [...] needed for pain omega-3 polyunsaturated fatty acids (Avis-500 oral capsule) 1 cap, Oral, once a [...] of emergency. Electronically Signed By: YOLANDA COLÓN DUCK FARMER Signed On:02-SEP-2015 15:11:12 Your Allergies & Intolerances [...] if you dont have one. Go to [email or web address] and click on Create Your Account. Then, follow the directions to complete the online form. Youll be asked for your [facility] number which you can find at the top of this document. Your Goals/Additional instructions: Source: [facility] POWERCHART Document Id: [id number] Miscellaneous - Yolanda Colón APRN, C.N.P. - 09/02/2015 3:11 PM CDT Ambulatory Discharge Medication List [address] [id number] Visit Information Name: FRANSICO MACDONALD [facility] Number: [id number] Visit Date: 09/02/2015 15:11:18 Attending Provider: YOLANDA COLÓN DUCK FARMER Primary Care Provider: YOLANDA COLÓN NP ROSEMARIESTELLA [...] nasal (fluticasone 50 mcg/inh nasal spray) 1 Watrous(s), Nasal, once a day glucosamine-chondroitin (Osteo Bi-Flex) [...] needed for pain omega-3 polyunsaturated fatty acids (Avis-500 oral capsule) 1 cap, Oral, once a [...] of emergency. Electronically Signed By: YOLANDA COLÓN DUCK FARMER Signed On:02-SEP-2015 15:11:12 Additional Information: Source: [facility] GiftMe Document Id: [id number] Miscellaneous - Mervin Marquez L.P.N. - 09/02/2015 [...] MARQUEZ LPN - 09/02/2015 14:55 CDT Source: [facility] [employer] Document Id: [id number] CDT!6 Miscellaneous - Mervin Marquez L.P.N. - 09/02/2015 2:52 PM CDT Adult Gin Operator Intake/History Adult Gin Operator Intake/History Entered On: 09/02/2015 14:54 CDT Performed [...] 09/02/2015 14:52 CDT General Info Languages : Macedonian Is Patient Female and 13-50 no hysterectomy [...] MARQUEZ LPN - 09/02/2015 14:52 CDT [facility] Document Id: [id number] CDT!35 documented in this encounter Plan of Treatment Upcoming Encounters Date Type Specialty Care Team Description 02/11/2022 Appointment Laboratory Medicine Neli Hearn M.D. [address] [place] [address] (Stephon caldera) 02/14/2022 Office Visit Family Medicine Lilli Hearn M.D. [address] [place] [phone] (Wo rk) documented as of this encounter Visit Diagnoses Not on filedocumented in this encounter
--- OUTSIDE RECORDS SUMMARY | 2022-01-28 08:58 | XMS_ITS | Encounter Summary ---
:1945 Author Organization [facility] Address [address] [place] [address] Care Team Providers Name Role Phone Unavailable Primary Care Provider Unavailable Encounter Details Date Type Department Care Team Description 05/16/2016 Hospital Encounter HX [facility] JENNIFER Yolanda Jett , AGRICULTURAL RESEARCH ENGINEER, C.N.P. 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 - 05/18/2016 10:15 AM RAW SAMPLER Results Notification Document Contains Addenda Addendum by TIFFANY ELLIS LPN on May 18, 2016 10:25:59 RAW SAMPLER Pt. notified. From: YOLANDA COLÓN EMPLOYEE WELFARE MANAGER To: TIFFANY ELLIS LPN; Sent: 05/18/2016 10:15:57 RAW SAMPLER Show up: 05/18/2016 10:16:00 RAW SAMPLER Subject: Results Notification Notify of results, cholesterol [...] 3.07 x10(9)/L (0.90 - 2.90) 05/16/2016 08:55 [place] Absolute 0.55 x10(9)/L (0.30 - 0.90) 05/16/2016 08:55 Eos Absolute 0.12 x10(9)/L (0.05 - 0.50) 05/16/2016 08:55 Baso Absolute 0.03 x10(9)/L (0.00 - 0.30) 05/16/2016 08:55 Differential? Auto Source: [facility] POWERCHART Document Id: [id number] Electronically signed by Conversion, [facility] Trash Collector Supervisor [id number] at 09/06/2016 1:04 AM CDT documented in this encounter Plan of Treatment Upcoming Encounters Date Type Specialty Care Team Description 02/11/2022 Appointment Laboratory Medicine Neli Hearn M.D. [address] [place] [phone] (Wo rk) 02/14/2022 Office Visit Family Medicine Lilli Hearn M.D. [address] [place] [phone] (Wo rk) documented as of this encounter Procedures Procedure Name Priority Date/Time Associated Diagnosis Comme nts LIPID PANEL, S Routine 05/16/2016 8:55 AM Results for this RAW SAMPLER procedure are i n the results section. AUTOMATED Routine 05/16/2016 8:55 AM Results f or this DIFFERENTIAL, B RAW SAMPLER procedure ar e in the results section. CBC WITH Routine 05/16/2016 8:55 AM Results f or this DIFFERENTIAL, B RAW SAMPLER procedure ar e in the results section. BASIC METABOLIC Routine 05/16/2016 8:55 AM Result s for this PANEL, S/P RAW SAMPLER procedure are i n the results section. documented in this encounter Results (ABNORMAL) Automated Differential (05/16/2016 8:55 AM RAW SAMPLER) Patholo gist Method Time Signature Absolute 3.14 [...] Laterality Blood 05/16/2016 8:55 AM 7 8:55 RAW SAMPLER AM RAW SAMPLER Yolanda Colón APRN, C.N.P. LAB BLOOD ADD-ON Performing Organization Address City/State/ZIP Code Phon e Number POWERCHART CBC with Differential (05/16/2016 8:55 AM RAW SAMPLER) P athologist Signature Leukocytes 6.9 3.5 - 10.5 POWERCHART X109L Erythrocytes 5.05 4.32 - POWERCHART 5.72 L1278I Hemoglobin 15.0 13.5 - POWERCHART 17.5 GDL Hematocrit 45.6 38.8 - POWERCHART 50.0 MCV 90.3 81.2 - POWERCHART 95.1 FL HX RDW 13.0 11.8 - POWERCHART 15.6 Platelet Count 252 150 - 450 POWERCHART X109L HXDifferential? Auto POWERCHART Specimen (Source) Anatomical Collection Method Collection Time Re ceived Time Location / / Volume Laterality Blood 05/16/2016 8:55 AM RAW SAMPLER Yolanda Colón APRN, C.N.P. LAB BLOOD ADD-ON Performing Organization Address City/State/ZIP Code Phon e Number POWERCHART (ABNORMAL) Lipid Panel (05/16/2016 8:55 AM RAW SAMPLER) P athologist Signature Cholesterol, 196 <=199 MGDL [...] FH and FDB is available [facility]: FH/ADH Genetic Reflex Rivera el (test ADHP). Acquired (non-genetic) causes of markedly increased LDL cholesterol include cholestatic liver disease due to the presence of LpX. If a genetic form of hypercholesterolemia is suspected, family studies including biochemical testing fo r lipids (total cholesterol,triglycerides, LDL cholesterol and HDL cholesterol) are recommended. ??Please contact the laboratory at or the on-line test catalog at [employer] ([employer]) for information about how to order these endy ts or to speak with a genetic counselor. Further interpretation would require clinical information. Specimen (Source) Anatomical Collection Method Collection Time Re ceived Time Location / / Volume Laterality Blood 05/16/2016 8:55 AM RAW SAMPLER Yolanda Colón APRN, C.N.P. LAB BLOOD ADD-ON Performing Organization Address City/State/ZIP Code Phon e Number POWERCHART BMP (Basic Metabolic Panel) (05/16/2016 8:55 AM RAW SAMPLER) P athologist Signature Sodium, S 139 135 [...] MLMINSA eGFR >60.0 >=60.0 POWERCHART Black/ MLMINSA Gabonese Glucose 134 70 - 140 POWERCHART MGDL Specimen (Source) Anatomical Collection Method Collection Time Re ceived Time Location / / Volume Laterality Blood 05/16/2016 8:55 AM RAW SAMPLER Yolanda Colón APRN, C.N.P. LAB BLOOD ADD-ON Performing Organization Address City/State/ZIP Code Phon e Number POWERCHART documented in this encounter Visit Diagnoses Not on filedocumented in this encounter
--- OUTSIDE RECORDS SUMMARY | 2022-01-28 08:58 | XMS_ITS | Encounter Summary ---
:1945 Author Organization [facility] Address [address] [place] [address] Care Team Providers Name Role Phone Unavailable Primary Care Provider Unavailable Encounter Details Date Type Department Care Team Description 06/12/2015 Hospital Encounter HX [facility] JENNIFER Yolanda Jett , HAMMER MILL OPERATOR, C.N.P. 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 Source: [facility] POWERCHART Document Id: [id number] Electronically signed by Conversion, [facility] Co Founder And Chief Strategy Officer [id number] at 08/20/2016 3:55 PM CDT Miscellaneous - Yolanda Colón APRN, C.N.P. - 06/12/2015 1:10 PM CDT Results Notification Document Contains Addenda Addendum by JENNIFER STEWARD LPN on June 15, 2015 15:28 CDT Pt called for results and given message. Addendum by DARBY SHANNON LPN on June 15, 2015 09:55:23 CDT letter sent Addendum by JOURDAN PATEL CMA on June 12, 2015 13:50:32 CDT [facility] From: YOLANDA COLÓN PROFESSOR OF MUSICOLOGY To: DARBY SHANNON LPN; Sent: 06/12/2015 13:10:01 [...] Calculated 118 mg/dL ( - <=129) Source: [facility] POWERCHART Document Id: [id number] documented in this encounter Plan of Treatment Upcoming Encounters Date Type Specialty Care Team Description 02/11/2022 Appointment Laboratory Medicine Neli Hearn M.D. [address] [place] [phone] (Wo rk) 02/14/2022 Office Visit Family Medicine Lilli Hearn M.D. [address] [place] [phone] (Wo rk) documented as of this encounter Procedures Procedure Name Priority Date/Time Associated Diagnosis Comme nts LIPID PANEL, S Routine 06/12/2015 9:10 AM Results for this CDT procedure are i n the results section . documented in this encounter Results (ABNORMAL) Lipid Panel (06/12/2015 9:10 AM CDT) P athologist Signature Cholesterol, 193 <=199 MGDL POWERCHART Total Comment: 2013 National [...] esting [facility] and [facility]: FH/ADH Genetic Reflex Rivera el (test ADHP). Acquired (non-genetic) causes of markedly increased LDL cholesterol include cholestatic liver disease due to the presence of LpX. If a genetic form of hypercholesterolemia is suspected, family studies including biochemical testing fo r lipids (total cholesterol,triglycerides, LDL cholesterol and HDL cholesterol) are recommended. ??Please contact the laboratory at or the on-line test catalog at [employer] for information about how to order these [...]
--- OUTSIDE RECORDS SUMMARY | 2022-01-28 08:58 | XMS_ITS | Encounter Summary ---
:1945 Author Organization [facility] Address [address] [place] [address] Care Team Providers Name Role Phone Unavailable Primary Care Provider Unavailable Encounter Details Date Type Department Care Team Description 07/15/2013 Hospital Encounter HX [facility] Nate Castillo M .D. 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 - 07/15/2013 9:54 AM CDT [id number] Dear Yolanda: Thank you for scheduling Fransico [...] VALENTIN MD On: 07/15/2013 01:34 PM Source: [facility] MHSDOLBEYNONRADSYS Document Id: [id number] documented in this encounter Procedure Notes Marry [...] Yes Wearing Patient Gown : Yes Voided head and neck surgeon to procedure : Yes MARRY GUZMÁN RN [...] GUZMÁN RN - 07/15/2013 10:02 CDT Source: [employer] Document Id: [id number] CDT!36 Nate Valentin M.D. - 07/15/2013 12:00 [...] VALENTIN MD On: 07/15/2013 01:34 PM Source: [facility] MHSDOLBEYNBECKY Document Id: [id number] documented in this encounter Nursing Notes Nate Valentin M.D. - 07/15/2013 10:53 AM CDT Ambulatory Patient Education The following Patient Education Materials have been given to the patient: Patient Education Materials: Source: [facility] POWERCHART Document Id: [id number] Marry Guzmán R.N. - 07/15/2013 10:03 AM CDT Day Surgery Admission History/Asmt Adult Day Surgery Admission History/Asmt Adult Entered On: 07/15/2013 10:03 CDT Performed On: 07/15/2013 10:03 CDT by MARRY GUZMÁN RN General Info Preferred Name : jamarcus Admitted From : Non-Health Care Facility Point of Origin Languages : Portuguese MARRY GUZMÁN RN - 07/15/2013 10:03 CDT [...] Psychosocial Adult Domestic Abuse Concerns : None Amish Preference : No qualifying data available. MARRY [...] GUZMÁN RN - 07/15/2013 10:22 CDT [facility] Document Id: [id number] CDT!13 documented in this encounter Miscellaneous Notes [...] discharged to outpt to see Dr. Valentin. Ridcedrick called and updated on status. [ALEJA MULLEN RN - 07/15/2013 11:33 CDT] ) Individuals Taught : Patient Barriers to Learning : None evident Teaching Method : Explanation, Printed materials Teaching Evaluation : Verbalizes understanding ALEJA MULLEN RN - 07/15/2013 11:33 CDT [facility] Document Id: [id number] CDT!43 Miscellaneous - Aleja Mullen R.N. - [...] MULLEN RN - 07/15/2013 11:21 CDT Source: [employer] Document Id: [id number] CDT!37 Miscellaneous - Aleja Mullen R.N. - [...] 172 cm(Converted to: 5 ft 8 inch(es)) ALEAJ MULLEN RN - 07/15/2013 11:13 CDT Source: [employer] Document Id: [id number] CDT!12 Misheronaneous - Aleja Mullen R.N. - [...] MULLEN RN - 07/15/2013 11:04 CDT Source: [employer] Document Id: [id number] CDT!24 Miscellaneous - Aleja Mullen R.N. - [...] MULLEN RN - 07/15/2013 10:58 CDT Source: [facility] POWERCHART Document Id: [id number] CDT!50 Miscellaneous - Nate Valentin M.D. - 07/15/2013 10:53 AM CDT Ambulatory Patient Summary [place] [address] [place], [place] [phone] Visit Information Name: FRANSICO MACDONALD [facility] Number: [id number] Current Date: 07/15/2013 10:53:29 Physicians Attending Provider: NATE VALENTIN MD Primary Care Provider: YOLANDA COLÓN NP FRANSICO MACDONALD has been given the following list of follow-up instructions, medication list, and patient education materials: Follow-up Instructions With: Address: When: NATE VALENTIN [address] [place] [id number] [facility] (2) In 10 years 07/16/2023 Comments: colonoscopy [...] nasal (fluticasone 50 mcg/inh nasal spray) 1 [place](s), Nasal, once a day glucosamine-chondroitin (Osteo Bi-Flex) [...] appointment detail needed. Your Goals/Additional instructions: Source: [facility] POWERCHART Document Id: [id number] Miscellaneous - Nate Valentin M.D. - 07/15/2013 10:53 AM CDT Ambulatory Discharge Medication List [address] [id number] Visit Information Name: FRANSICO MACDONALD [facility] Number: [id number] Visit Date: 07/15/2013 10:53:27 Attending Provider: NATE VALENTIN MD Primary Care Provider: YOLANDA COLÓN TAX EXPERT FRANSICO MACDONALD has been given the following [...] nasal (fluticasone 50 mcg/inh nasal spray) 1 [place]mora(s), Nasal, once a day glucosamine-chondroitin (Osteo Bi-Flex) [...] MD Signed On:15-JUL-2013 10:52:33 Additional Information: Source: [facility] POWERCHART Document Id: [id number] documented in this encounter Plan of Treatment Upcoming Encounters Date Type Specialty Care Team Description 02/11/2022 Appointment Laboratory Medicine Neli Hearn M.D. [address] [place] [phone] (Stephon caldera) 02/14/2022 Office Visit Family Medicine Lilli Hearn M.D. [address] [place] [address] (Stephon caldera) documented as of [...] bile duct is within normal limits. Negative Fontnaez's sign noted. Patent proximal IVC . The proximal abdominal aorta is unremarkable. Natacha Niño R.V.T., StephenSFamilia IMG US PROCEDURES documented in this encounter Visit Diagnoses Not on filedocumented in this encounter
--- OUTSIDE RECORDS SUMMARY | 2022-01-28 08:58 | XMS_ITS | Encounter Summary ---
:1945 Author Organization [facility] Address [address] [place] [address] Care Team Providers Name Role Phone Unavailable Primary Care Provider Unavailable Encounter Details Date Type Department Care Team Description 04/16/2015 Hospital Encounter HX [facility] Jamie Guzmán M.D. 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 documented as of this encounter Last Filed Vital Signs Vital Sign Reading Time Taken Comments Blood Pressure 139/80 04/16/2015 8:46 AM SILVER MINER BLASTING Pulse 80 04/16/2015 8:46 AM SILVER MINER BLASTING Temperature - - Respiratory Rate 18 04/16/2015 8:46 AM SILVER MINER BLASTING Oxygen Saturation - - Inhaled Oxygen Concentration - - Weight 147 kg (323 lb 3.1 oz) 04/16/2015 8:46 AM SILVER MINER BLASTING Height 172 cm (5' 7.72) 04/16/2015 8:46 AM SILVER MINER BLASTING Body Mass Index 49.55 04/16/2015 8:46 AM SILVER MINER BLASTING documented in this encounter Medications at Time [...] Payan M.D. - 04/16/2015 8:39 AM CST [id number] SLEEP DISORDERS CLINIC VISIT NOTE CHIEF COMPLAINT/REASON FOR VISIT Review of split-night polysomnography. Discussion of obstructive sleep apnea. Decision making regarding treatment. NOTE: The visit was for discussion, counseling and coordination of care purposes only, involved approximately 20 minutes of emtl-ru-[id number] contact time and did not involve repeat physical examination. 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 [facility] in [address] [address] Anel Morgan Dc [address] [place] [id number] Electronically Signed By: CHESTER PAYAN MD On: 04/20/2015 07:20 PM Source: [facility] MHSDOLBEYNJOSESYWendy Document Id: [id number] ER MINER BLASTING documented in this encounter Miscellaneous Notes Miscellaneous - Chester Payan M.D. - 04/16/2015 9:33 AM CST Ambulatory Patient Summary [address] [id number] Visit Information Name: FRANSICO MACDONALD [facility] Number: [id number] Current Date: 04/16/2015 09:33:35 Physicians Attending Provider: CHESTER PAYAN MD Primary Care Provider: YOLANDA COLÓN CREDIT PRODUCTS OFFICER FRANSICO MACDONALD has been given the [...] nasal (fluticasone 50 mcg/inh nasal spray) 1 Vici(s), Nasal, once a day glucosamine-chondroitin (Osteo Bi-Flex) 1 tablets, Oral, two times a day losartan-hydrochlorothiazide (losartan-hydrochlorothiazide 100 mg-25 mg oral tablet) 1 Tablet(s), Oral, once a day (Hyzaar) multivitamin with minerals (Centrum Silver Men's oral tablet) 1 Tablet(s), Oral, once a day naproxen (Naprosyn 500 mg oral tablet) 1 Tablet(s), Oral, two times a day as needed for pain omega-3 polyunsaturated fatty acids (Eminence-500 oral capsule) 1 cap, Oral, once a [...] if you dont have one. Go to [email or web address] and click on Create Your Account. Then, follow the directions to complete the online form. Youll be asked for your [facility] number which you can find at the top of this document. Your Goals/Additional instructions: Source: [facility] POWERCHART Document Id: [id number] ER MINER BLASTING Miscellaneous - Chester Payan M.D. - 04/16/2015 9:33 AM CST Ambulatory Discharge Medication List [address] [id number] Visit Information Name: FRANSICO MACDONALD [facility] Number: [id number] Visit Date: 04/16/2015 09:33:34 Attending Provider: CHESTER PAYAN MD Primary Care Provider: YOLANDA COLÓN CREDIT PRODUCTS OFFICER FRANSICO MACDONALD has been given the [...] nasal (fluticasone 50 mcg/inh nasal spray) 1 Vici(s), Nasal, once a day glucosamine-chondroitin (Osteo Bi-Flex) 1 tablets, Oral, two times a day losartan-hydrochlorothiazide (losartan-hydrochlorothiazide 100 mg-25 mg oral tablet) 1 Tablet(s), Oral, once a day (Hyzaar) multivitamin with minerals (Centrum Silver Men's oral tablet) 1 Tablet(s), Oral, once a day naproxen (Naprosyn 500 mg oral tablet) 1 Tablet(s), Oral, two times a day as needed for pain omega-3 polyunsaturated fatty acids (Eminence-500 oral capsule) 1 cap, Oral, once a [...] MD Signed On:16-APR-2015 09:33:21 Additional Information: Source: [facility] POWERCHART Document Id: [id number] ER MINER BLASTING Miscellaneous - Niyah Hartmann, R.M.A. - 04/16/2015 8:46 AM CST Adult Automobile Sales Representative Intake/History Adult Automobile Sales Representative Intake/History Entered On: 04/16/2015 8:48 SILVER MINER BLASTING Performed On: 04/16/2015 8:46 SILVER MINER BLASTING by NIYAH HARTMANN Intake Chief Complaint : [...] 49.55 kg/m2 NIYAH HARTMANN - 04/16/2015 8:46 SILVER MINER BLASTING General Info Information Given By : Patient Languages : Indonesian Is Patient Female and 13-50 no hysterectomy : No NIYAH HARTMANN - 04/16/2015 8:46 SILVER MINER BLASTING Subjective Pain Symptoms : No NIYAH HARTMANN - 04/16/2015 8:46 SILVER MINER BLASTING Dependent Habits Smoking Status : Never smoker Tobacco 2A : No Tobacco Use/Currently Using : No Tobacco Use/Last 30 Days : No Tobacco Use/Last 12 months : No NIYAH HARTMANN - 04/16/2015 8:46 SILVER MINER BLASTING Caffeine Use Grid Caffeine Use : None NIYAH HARTMANN [facility] - 04/16/2015 8:46 SILVER MINER BLASTING Recreational Drug Use Grid Drug Use : None NIYAH HARTMANN [facility] - 04/16/2015 8:46 SILVER MINER BLASTING Source: [facility] [employer] Document Id: [id number] SILVER MINER BLASTING!36 ER MINER BLASTING documented in this encounter Plan of Treatment Upcoming Encounters Date Type Specialty Care Team Description 02/11/2022 Appointment Laboratory Medicine Neli Hearn M.D. [address] [place] [phone] (Stephon caldera) 02/14/2022 Office Visit Family Medicine Lilli Hearn M.D. [address] [place] [phone] (Stephon caledra) documented as of this encounter Visit Diagnoses Not on filedocumented in this encounter
--- OUTSIDE RECORDS SUMMARY | 2022-01-28 08:58 | XMS_ITS | Encounter Summary ---
:1945 Author Organization [facility] Address [address] [place] [address] Care Team Providers Name Role Phone Unavailable Primary Care Provider Unavailable Encounter Details Date Type Department Care Team Description 07/01/2015 Hospital Encounter HX [facility] Jamie Payan M.D. 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 - 07/01/2015 2:36 PM CDT [id number] CHIEF COMPLAINT/REASON FOR VISIT Verification of compliance and efficacy on nasal CPAP therapy. HISTORY OF PRESENT ILLNESS The visit was for discussion, counseling, and coordination of care purposes only and did not involveany repeat physical examination. Approximately 20 minutes of [id number] contact time for the visit. This 69-year-old [...] past, he submitted his smart card from [employer] and was told that it was not [...] when I saw him back in February. Ramer SleepinessScale survey today is 0 compared to [...] the present time. 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 He h ad told me that he [...] Payan M.D./pos cc: Yolanda Colón APRN, C.N.P. [facility] [place] [address] Electronically Signed By: CHESTER PAYAN MD On: 07/04/2015 10:15 AM Source: [facility] MHSDOLBEYNONRADSYS Document Id: [id number] documented in this encounter Procedure Notes Chester Payan M.D. - 08/30/2015 12:00 AM CDT [id number] Home Nasal CPAP Data Interrogation/Analysis: April 22, [...] bring his equipment into his DME provider. [employer] in [facility] and have them extract the data and [...] PAYAN MD On: 09/01/2015 11:10 AM Source: [facility] MHSDOLBEYNONRADSYS Document Id: [id number] documented in this encounter Miscellaneous Notes Miscellaneous - Chester Payan M.D. 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.] dont have one. Go to [email or web address] and click on Create Your Account. Then, follow the directions to complete the online form. Youll be asked for your [facility] number which you can find at the top of this document. Your Goals/Additional instructions: Source: [facility] POWERCHART Document Id: [id number] Miscellaneous - Chester Payan M.D. - 07/01/2015 3:28 PM CDT Ambulatory Discharge Medication List [facility] [place] [address] [phone] Visit Information Name: FRANSICO MACDONALD [facility] Number: [id number] Visit Date: 07/01/2015 15:28:58 Attending [...] (fluticasone 50 mcg/inh nasal spray) 1 [place](s), Nasal, once a day glucosamine-chondroitin (Osteo Bi-Flex) 1 tablets, Oral, two times a day losartan-hydrochlorothiazide (losartan-hydrochlorothiazide 100 mg-25 mg oral tablet) 1 Tablet(s), Oral, once a day (Hyzaar) multivitamin with minerals (Centrum Silver Men's oral tablet) 1 Tablet(s), Oral, once a day naproxen (Naprosyn 500 mg oral tablet) 1 Tablet(s), Oral, two times a day as needed for pain omega-3 polyunsaturated fatty acids ([place]-500 oral capsule) 1 cap, Oral, once a [...] MD Signed On:01-JUL-2015 15:28:46 Additional Information: Source: [facility] [employer]et Document Id: [id number] Kavyacellbolivar - Veronica Kumar RArnol. - 07/01/2015 3:06 PM CDT Ramer Sleepiness Scale Ramer Sleepiness Scale Entered On: 07/01/2015 15:06 CDT Performed On: 07/01/2015 15:06 CDT by VERONICA KUMAR RN Ramer Sleepiness Scale Ramer sitting and reading : No chance of dozing Ramer watching TV : No chance of dozing Ramer sitting in public : No chance of dozing Ramer passenger in car : No chance of dozing Ramer in a car stopped in traffic : No chance of dozing Ramer Lying down to rest : No chance of dozing Ramer sitting and talking : No chance of dozing Ramer sitting quietly after lunch : No chance of dozing Ramer Total Score : 0 VERONICA KUMAR RN - 07/01/2015 15:06 CDT Source: [facility] [employer] Document Id: [id number] CDT!11 Kavyacellbolivar - Veronica Kumar RRoslyn - 07/01/2015 2:57 PM CDT Adult It Specialist Intake/History Adult It Specialist Intake/History Entered On: 07/01/2015 15:02 CDT Performed [...] Information Given By : Patient Languages : Macedonian Is Patient Female and [...] KUMAR RN - 07/01/2015 14:57 CDT Source: [facility] POWERCHART Document Id: [id number] CDT!37 documented in this encounter Plan of Treatment Upcoming Encounters Date Type Specialty Care Team Description 02/11/2022 Appointment Laboratory Medicine Neli Hearn M.D. [address] [place] [phone] (Stephon caldera) 02/14/2022 Office Visit Family Medicine Lilli Hearn M.D. [address] [place] [phone] (Stephon caldera) documented as of this encounter Visit Diagnoses Not on filedocumented in this encounter
--- OUTSIDE RECORDS SUMMARY | 2022-01-28 08:58 | XMS_ITS | Encounter Summary ---
:1945 Author Organization [facility] Address [address] [place] [address] Care Team Providers Name Role Phone Unavailable Primary Care Provider Unavailable Encounter Details Date Type Department Care Team Description 08/31/2015 Hospital Encounter HX [facility] Nathanael Pérez ED, M.D. 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 [address] Name: FRANSICO MACDONALD Date of : 1945 12:00 AM Visit Date: 08/31/2015 8:37 AM [facility] Number: [id number] Address: [address] [place] [phone] Primary Care Provider: JULIO LOZADA NP IMPORTANT: [facility] in [place] would like to thank you for allowing us to assistyou with your healthcare needs. The following includes patient education materials and information regarding your injury/illness. Diagnosis: Strain Hip Flexor Initial L Follow-Up Instructions: With: Address: When: DI PAYAN [address] [place] [phone] Business (1) Within As Needed Comments: Low lumbar back pain with previous surgery With: Address: When: Follow up with primary care provider Within 3 - 5 days With: Address: When: JULIO LOZADA [address] [place] [phone] Business (2) Within As Needed Your Upcoming [...] bear weight on the injured side ?? [id number] [facility], [address] [place] [address]. All rights reserved. This information is not [...] if you dont have one. Go to [email or web address] and click on Create Your Account. Then, [...] day (at bedtime) omega-3 polyunsaturated fatty acids (Verona-500 oral capsule) 1 cap(s) Oral once a [...] arrange a ride home with a responsible alliance party. MERY Rosa LAWRENCE ARNOLD , or responsible alliance party have received this information and my questionshave been answered. I have discussed any challenges I see with this plan with the nurse or physician. Patient Signature or Responsible Constitution Party/Relationship Date Time Provider Signature Date Time IMPORTANT: [...] arrange a ride home with a responsible alliance party. I, FRANSICO MACDONALD , or responsible alliance party have received this information and my questionshave been answered. I have discussed any challenges I see with this plan with the nurse or physician. Patient Signature or Responsible Constitution Party/Relationship Date Time Provider Signature Date Time This document has images extracted. Please consider using [employer] for all your patient education needs. Source: [facility] POWERCHART Document Id: [id number] Deborah Rg R.N. - 08/31/2015 11:21 AM CDT ED Depart Summary [facility] Emergency Department Clinical Discharge Summary PERSON INFORMATION Name FRANSICO MACDONALD Age 69 Years 1945 12:00 AM Sex Male Language Japanese PCP JULIO LOZADA NP Marital Status N [id number] Visit Id Visit Reason Hip pain-swelling; hip pain Specialty Enc Type Emergency Med Service Emergency Medicine Referred by Track Group MAQN ED Discharge 08/31/2015 11:00 AM Tracking Id [id number] Checkout 08/31/2015 11:00 AM Checkin 08/31/2015 8:37 AM Acuity 4 -Less Urgent Dispo Type * Discharged to Home or Self Care Arrival 08/31/2015 8:37 AM Reg Status LOS 000 02:23 Address: [address] [place] [phone] Comment: PROVIDER INFORMATION Provider Role Provider Contact Time RENARD ROY MD ED Provider 08/31/15 08:40 DEBORAH RG COIL REWIND MACHINE OPERATOR Nurse 08/31/15 08:57 DIAGNOSIS Strain Hip Flexor Initial L Comment: PATIENT EDUCATION INFORMATION Instructions: HIP STRAIN Follow up: With: Address: When: DI PAYAN [address] [place] [address] Business (1) Within As Needed Comments: Low lumbar back pain with previous surgery With: Address: When: Follow up with primary care provider Within 3 - 5 days With: Address: When: JULIO LOZADA [address] [place] [phone] Business (2) Within As Needed Source: [facility] Document Id: [id number] documented in this encounter Medications at Time [...] RG RN - 08/31/2015 11:19 CDT Source: [employer] Document Id: [id number] CDT!8 Deborah Rg R.N. - 08/31/2015 10:50 [...] RG RN - 08/31/2015 11:17 CDT Source: [facility] POWERCHART Document Id: [id number] CDT!24 Deborah Rg R.N. - 08/31/2015 9:45 [...] RG RN - 08/31/2015 10:04 CDT Source: [facility] POWERCHART Document Id: [id number] CDT!33 Renard Roy M.D. - 08/31/2015 9:12 [...] approximately 18 years ago. 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 Hyperlipidemia (272.4): Resolved. Anxiety (44702593): Resolved.. Surgical history: CT angiography of coronary arteries ([id number]) on 06/13/2013 at 67 Years. X-ray of abdomen ([id number]) on 12/17/2009 at 64 Years. Hernia repair ([id number]).. Family history: Dementia Mother [place] - Breast [...] ROY MD On: 08/31/2015 10:46 AM Source: [employer] Document Id: [id number]} Deborah Rg R.N. - 08/31/2015 8:50 AM [...] System: PowerChart ; Last Updated: 04/16/2015 9:31 HYBRID TESTER ; Life Cycle Status: Active ; Responsible Provider: THELMA PAYAN MD; Vocabulary: ICD-10-CM Psoriasis NOS (ICD-10-CM :L40.9 ) Name of Problem: Psoriasis NOS ; Recorder: THELMA PAYAN MD; Confirmation: Confirmed ; Classification: Medical ; Code: L40.9 ; Contributor System: PowerChart ; LastUpdated: 03/18/2015 10:06 HYBRID TESTER ; Life Cycle Status: Active ; Responsible Provider: THELMA PAYAN MD; Vocabulary: ICD-10-CM Diagnoses(Active) Hip pain-swelling Date: 08/31/2015 ; Diagnosis Type: Reason For Visit ; Confirmation: Complaint of ;Clinical Dx: Hip pain-swelling ; Classification: Medical ; Clinical Service: Emergency medicine ; Code: PNED ; Probability: 0 ; Diagnosis Code: [id number] Triage Chief Complaint Description : Pt presents [...] Private vehicle Track : Medical Languages : Japanese Vital Signs Assessed : Yes Treatments Prior [...] Heart Rhythm : Regular Skin Color : Forrest Skin Description : Dry Skin Temperature : [...] Behavioral Health Screen/Safety Assmt : No DEBORAH RG RN - 08/31/2015 8:50 CDT Gastrointestinal Nutrition [...] RG RN - 08/31/2015 8:50 CDT Source: [facility] POWERCHART Document Id: [id number] CDT!89 documented in this encounter Miscellaneous Notes Miscellaneous - Deborah Rg R.N. - 08/31/2015 11:00 AM CDT Valuables/Belongings Valuables/Belongings Entered On: 08/31/2015 11:21 CDT Performed On: 08/31/2015 11:00 CDT by DEBORAH RG RN Valuables/Belongings Belongings Sent Home With : discharged home with all belongings Home Medication Disposition : None brought in with patient DEBORAH RG RN - 08/31/2015 11:21 CDT Source: [employer] Document Id: [id number] CDT!4 Miscellaneous - Conversion, Historical Provider Ser - 08/31/2015 11:00 AM CDT Coding Summary-Paper Based CODING DATE: 09/10/2015 FINAL [facility] STATUS: * Discharged to Home or [...] DURAN Date Saved: 09/10/2015 11:08 am Source: [employer] Document Id: [id number] Miscellaneous - Deborah Rg RArnol. - 08/31/2015 8:37 AM CDT Facility Charge [...] Nursing Notes ED Primary Assessment,08/31/15 08:50,DEBORAH RG COIL REWIND MACHINE OPERATOR Nurse Reassess,08/31/15 10:50,DEBORAH RG RN ED Nurse Reassess,08/31/15 09:45,DEBORAH GR RN [place]x Nursing Assessment : Triage and 1-2 nursing assessments Lynx Disposition : Discharge Lynx Total Points with Diagnosis Control : 7 Lynx Visit Level : 77958 Level 3 Treatments Prior to Arrival : None DEBORAH RG RN - 08/31/2015 11:21 CDT Source: [facility] POWERCHART Document Id: [id number] CDT!18 documented in this encounter Plan of Treatment Upcoming Encounters Date Type Specialty Care Team Description 02/11/2022 Appointment Laboratory Medicine Neli Jarrell M.D. [address] [place] [phone] (Wo rk) 02/14/2022 Office Visit Family Medicine Lilli Jarrell M.D. [address] [place] [phone] (Wo rk) documented as of this encounter [...] culture if indicated (08/31/2015 10:12 AM CDT) [facility] Method Time Signature HXUr Color Yellow Colorless POWERCHART Clarity Clear Clear POWERCHART Glucose Negative Negative MGDL POWERCHART HXBILIRUBIN Negative Negative POWERCHART Ketones, QL(U) Negative Negative MGDL POWERCHART Specific 1.015 POWERCHART Rugby, POCT, U Comment: Reference Range Specific Rugby: 1.000-1.035 HXBLOOD Negative Negative POWERCHART pH, POCT, [...] 9:27 AM CDT Addenda Addendum by Provider, Esme Gusman. o n 08/31/2015 9:27 AM CDT RAD^^^MA XR LUMBAR [...] facet disease at L4-5 and L5-S1. Lynda HelmTFamilia(R)(CT), RJaun(R)(M) IMG DIAGNOSTIC IM AGING PROCEDURES DX Hips [...]
--- OUTSIDE RECORDS SUMMARY | 2022-01-28 08:58 | XMS_ITS | Encounter Summary ---
:1945 Author Organization [facility] Address [address] [place] [address] Care Team Providers Name Role Phone Unavailable Primary Care Provider Unavailable Encounter Details Date Type Department Care Team Description 03/11/2015 Hospital Encounter HX [facility] JENNIFERWendy Riojas, MANAGER FINANCE, C.N.P. [address] [place] [phone] (Wo rk) Social History Tobacco Use Types [...] Date Recorded Male 04/20/2021 3:56 PM ASSEMBLER FINAL documented as of this encounter Last Filed Vital Signs Vital Sign Reading Time Taken Comments Blood Pressure 168/92 03/11/2015 10:25 AM ASSEMBLER FINAL Pulse 82 03/11/2015 9:55 AM ASSEMBLER FINAL Temperature - - Respiratory Rate - - Oxygen Saturation - - Inhaled Oxygen Concentration - - Weight 141 kg (311 lb 4.6 oz) 03/11/2015 9:55 AM ASSEMBLER FINAL Height 172 cm (5' 7.72) 03/11/2015 10:25 AM ASSEMBLER FINAL Body Mass Index 47.73 03/11/2015 9:55 AM ASSEMBLER FINAL documented in this encounter Medications at Time [...] AMBER, C.N.P. - 03/11/2015 9:43 AM CST [id number] CHIEF COMPLAINT/REASON FOR VISIT Medhat is here [...] Nonsmoker, no alcohol use. 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 . MEDICATIONS Aspirin 81 mg. Bupropion XR 150 twice a day. Centrum Silver. Fluticasone. Hytrin. Losartan hydrochlorothiazide 100/25. Naprosyn. Trinity fish oil. Omeprazole 20. Fjnlw-Ni-Dszu. Pravastatin 80. Sildenafil or Viagra. ALLERGIES To [...] APRN, C.N.P./pos Electronically Signed By: YOLANDA COLÓN BLOCK PRESS OPERATOR On: 03/13/2015 07:44 AM Source: [facility] MHSDOLBEYNONRADSYS Document Id: [id number] MBLER FINAL documented in this encounter Miscellaneous Notes Miscellaneous - Yoalnda Colón APRN, C.N.P. - 03/13/2015 7:49 AM ASSEMBLER FINAL Results Notification Document Contains Addenda Addendum by MERVIN MARQUEZ LPN on 13 March 2015 09:20:18 ASSEMBLER FINAL Called patient and verbalized below. No further questions. From: YOLANDA COLÓN BLOCK PRESS OPERATOR To: MERVIN MARQUEZ LPN; Sent: 03/13/2015 07:49:13 ASSEMBLER FINAL Show up: 03/13/2015 07:49:00 ASSEMBLER FINAL Subject: Results Notification Cholesterol is up from [...] 2.41 x10(9)/L (0.90 - 2.90) 03/11/2015 10:45 [place] Absolute 0.47 x10(9)/L (0.30 - 0.90) 03/11/2015 10:45 Eos Absolute 0.14 x10(9)/L (0.05 - 0.50) 03/11/2015 10:45 Baso Absolute 0.03 x10(9)/L (0.00 - 0.30) 03/11/2015 10:45 Differential? Auto Source: [facility] POWERCHART Document Id: [id number] Electronically signed by Conversion, [facility] Compress Trucker [id number] at 08/22/2016 8:49 AM CDT Miscellaneous - Yolanda Colón, MANAGER FINANCE, C.N.P. - 03/11/2015 10:25 AM ASSEMBLER FINAL Ambulatory Patient Summary [address] [place], [place] [phone] Visit Information Name: FRANSICO MACDONALD [facility] Number: [id number] Current Date: 03/11/2015 10:25:11 Physicians Attending Provider: YOLANDA COLÓN BLOCK PRESS OPERATOR Primary Care Provider: YOLANDA COLÓN BLOCK PRESS OPERATOR ROSEMARIESTELLA FRANSICO HINOJOSA has been given the [...] Oral, once a day New Routed to [address] [address] aspirin (aspirin 81 mg oral tablet) 1 Tablet(s), Oral, once a day buPROPion (buPROPion SR 150 mg/12 hour oral tablet, sustained release) 1 Tablet(s), Oral, two times a day fluticasone nasal (fluticasone 50 mcg/inh nasal spray) 1 [place](s), Nasal, once a day glucosamine-chondroitin (Osteo Bi-Flex) 1 tablets, Oral, two times a day losartan-hydrochlorothiazide (losartan-hydrochlorothiazide 100 mg-25 mg oral tablet) 1 Tablet(s), Oral, once a day (Hyzaar) New Routed to [address] [address] multivitamin with minerals (Centrum Silver Men's oral tablet) 1 Tablet(s), Oral, once a day naproxen (Naprosyn 500 mg oral tablet) 1 Tablet(s), Oral, two times a day as needed for pain Routed to [address] [address] omega-3 polyunsaturated fatty acids (Trinity-500 oral capsule) 1 cap, Oral, once a day omeprazole (omeprazole 20 mg oral delayed release capsule) 1 cap, Oral, once a day New Routed to [address] [address] pravastatin (pravastatin 80 mg oral [...] of emergency. Electronically Signed By: YOLANDA COLÓN BLOCK PRESS OPERATOR Signed On:11-MAR-2015 10:24:51 Your Allergies & Intolerances [...] if you dont have one. Go to [email or web address] and click on Create Your Account. Then, follow the directions to complete the online form. Youll be asked for your [facility] number which you can find at the top of this document. Your Goals/Additional instructions: Source: [facility] POWERCHART Document Id: [id number] MBLER FINAL Miscellaneous - Yolanda Colón APRN, C.N.P. - 03/11/2015 10:25 AM ASSEMBLER FINAL Ambulatory Discharge Medication List [address] [id number] Visit Information Name: FRANSICO MACDONALD [facility] Number: [id number] Visit Date: 03/11/2015 10:25:08 Attending Provider: YOLANDA COLÓN BLOCK PRESS OPERATOR Primary Care Provider: YOLANDA COLÓN BLOCK PRESS OPERATOR FRANSICO MACDONALD MICAELA has been given the [...] Oral, once a day New Routed to [address] [address] aspirin (aspirin 81 mg oral tablet) 1 Tablet(s), Oral, once a day buPROPion (buPROPion SR 150 mg/12 hour oral tablet, sustained release) 1 Tablet(s), Oral, two times a day fluticasone nasal (fluticasone 50 mcg/inh nasal spray) 1 [place](s), Nasal, once a day glucosamine-chondroitin (Osteo Bi-Flex) 1 tablets, Oral, two times a day losartan-hydrochlorothiazide (losartan-hydrochlorothiazide 100 mg-25 mg oral tablet) 1 Tablet(s), Oral, once a day (Hyzaar) New Routed to [address] [address] multivitamin with minerals (Centrum Silver Men's oral tablet) 1 Tablet(s), Oral, once a day naproxen (Naprosyn 500 mg oral tablet) 1 Tablet(s), Oral, two times a day as needed for pain Routed to [address] [address] omega-3 polyunsaturated fatty acids (Trinity-500 oral capsule) 1 cap, Oral, once a day omeprazole (omeprazole 20 mg oral delayed release capsule) 1 cap, Oral, once a day New Routed to [address] [address] pravastatin (pravastatin 80 mg oral [...] of emergency. Electronically Signed By: YOLANDA COLÓN BLOCK PRESS OPERATOR Signed On:11-MAR-2015 10:24:51 Additional Information: Source: [facility] [employer] Document Id: [id number] MBLER FINAL Miscellaneous - Yolanda Colón APRN, C.N.P. - 03/11/2015 10:25 AM ASSEMBLER FINAL Ambulatory Vitals Height Weight Ambulatory Vitals Height Weight Entered On: 03/11/2015 10:25 ASSEMBLER FINAL Performed On: 03/11/2015 10:25 ASSEMBLER FINAL by YOLANDA COLÓN NP Vitals/Ht/Wt Systolic Blood Pressure : 168 mmHg (>HHI) Diastolic Blood Pressure : 92 mmHg (>HHI) NIBP Mean : 117 mmHg Height : 172 cm(Converted to: 5 ft 8 inch(es), 68 inch(es)) YOLANDA COLÓN BLOCK PRESS OPERATOR - 03/11/2015 10:25 ASSEMBLER FINAL Source: [facility] [employer] Document Id: [id number] ASSEMBLER FINAL!6 MBLER FINAL Miscellaneous - Mervin Marquez, NataleeP.N. - 03/11/2015 9:55 AM CST Adult Gold And Silver Assayer Intake/History Document Has Been Updated Adult Gold And Silver Assayer Intake/History Entered On: 03/11/2015 9:55 ASSEMBLER FINAL Performed On: 03/11/2015 9:55 ASSEMBLER FINAL by MERVIN MARQUEZ LPN Intake Chief Complaint : Feels short tempered- more hyper Check BP readings Temperature Core : 36.7 DegC(Converted to: 98.1 DegF) Peripheral Pulse Rate : 82 /min MERVIN MARQUEZ LPN - 03/11/2015 9:55 ASSEMBLER FINAL Systolic Blood Pressure : 174 mmHg (>HHI) Diastolic Blood Pressure : 88 mmHg NIBP Mean : 117 mmHg MERVIN MARQUEZ LPN - 03/11/2015 9:56 ASSEMBLER FINAL SpO2 : 97 % Height : 172 cm(Converted to: 5 ft 8 inch(es), 68 inch(es)) Actual Weight : 141.2 kg(Converted to: 311 lb 5 oz) Dosing Weight Clinic : 141.2 kg Clinic BSA : 2.6 Body Mass Index : 47.73 kg/m2 MERVIN MARQUEZ LPN - 03/11/2015 9:55 ASSEMBLER FINAL General Info Languages : Syriac Is Patient Female and 13-50 no hysterectomy : No MERVIN MARQUEZ LPN - 03/11/2015 9:55 ASSEMBLER FINAL Subjective Pain Symptoms : No MERVIN MARQUEZ LPN - 03/11/2015 9:55 ASSEMBLER FINAL Dependent Habits Smoking Status : Never smoker Tobacco 2A : No MERVIN MARQUEZ LPN - 03/11/2015 9:55 ASSEMBLER FINAL Source: [facility] POWERCHART Document Id: [id number] ASSEMBLER FINAL!5 MBLER FINAL documented in this encounter Plan of Treatment Upcoming Encounters Date Type Specialty Care Team Description 02/11/2022 Appointment Laboratory Medicine Neli Hearn M.D. [address] [place] [phone] (Wo rk) 02/14/2022 Office Visit Family Medicine Lilli Hearn M.D. [address] [place] [address] (Wo rk) documented as of this encounter Procedures Procedure Name Priority Date/Time Associated Diagnosis Comme nts LIPID PANEL, S Routine 03/11/2015 10:45 AM Result s for this ASSEMBLER FINAL procedure are i n the results section. PROSTATE-SPECIFIC Routine 03/11/2015 10:45 AM Res ults for this AG (PSA) SCRN, S ASSEMBLER FINAL procedure a re in the results section. AUTOMATED Routine 03/11/2015 10:45 AM Results for this DIFFERENTIAL, B ASSEMBLER FINAL procedure ar e in the results section. CBC WITH Routine 03/11/2015 10:45 AM Results for this DIFFERENTIAL, B ASSEMBLER FINAL procedure ar e in the results section. documented in this encounter Results Automated Differential (03/11/2015 10:45 AM ASSEMBLER FINAL) athologist Signature Absolute 3.37 1.70 - POWERCHART Neutrophils 7.00 109L Lymphocytes 2.41 0.90 - POWERCHART 2.90 X109L Monocytes 0.47 0.30 - POWERCHART 0.90 X109L Eosinophils 0.14 0.05 - POWERCHART 0.50 X109L Absolute 0.03 0.00 - POWERCHART Basophil 0.30 X109L Specimen Anatomical Collection Method Collection Time Receive d Time (Source) Location / / Volume Laterality Blood 03/11/2015 10:45 03/11/2015 AM ASSEMBLER FINAL 10:45 AM ASSEMBLER FINAL Yolanda Colón APRN, C.N.P. LAB BLOOD ADD-ON Performing Organization Address City/State/ZIP Code Phon e Number POWERCHART CBC with Differential (03/11/2015 10:45 AM ASSEMBLER FINAL) athologist Signature Leukocytes 6.4 3.5 - 10.5 POWERCHART X109L Erythrocytes 5.16 4.32 - POWERCHART 5.72 [id number] Hemoglobin 15.7 13.5 - POWERCHART 17.5 GDL Hematocrit 46.6 38.8 - POWERCHART 50.0 MCV 90.3 81.2 - POWERCHART 95.1 FL HX RDW 12.9 11.8 - POWERCHART 15.6 Platelet Count 261 150 - 450 POWERCHART X109L HXDifferential? Auto POWERCHART Specimen (Source) Anatomical Collection Method Collection Time Re ceived Time Location / / Volume Laterality Blood 03/11/2015 10:45 AM ASSEMBLER FINAL Yolanda Hailey Katarzyna CLARK, C.N.P. LAB BLOOD ADD-ON Performing Organization Address City/State/ZIP Code Phon e Number POWERCHART PSA (Prostate-Specific Antigen) Screen (03/11/2015 10:45 AM ASSEMBLER FINAL) P athologist Signature Prostate-Specif 2.0 <=4.5 NGML POWERCHART ic Ag Specimen (Source) Anatomical Collection Method Collection Time Re ceived Time Location / / Volume Laterality Blood 03/11/2015 10:45 AM ASSEMBLER FINAL Yolanda Hailey Katarzyna CLARK, C.N.P. LAB BLOOD ADD-ON Performing Organization Address City/State/ZIP Code Phon e Number POWERCHART (ABNORMAL) Lipid Panel (03/11/2015 10:45 AM ASSEMBLER FINAL) P athologist Signature Cholesterol, 238 (H) <=199 [...] for FH and FDB is available [facility]: FH/ADH Genetic Reflex Rivera el (test ADHP). Acquired (non-genetic) causes of markedly increased LDL cholesterol include cholestatic liver disease due to the presence of LpX. If a genetic form of hypercholesterolemia is suspected, family studies including biochemical testing fo r lipids (total cholesterol,triglycerides, LDL cholesterol and HDL cholesterol) are recommended. ??Please contact the laboratory at or the on-line test catalog at [email or web address] for information about how to order these endy ts or to speak with a genetic counselor. Further interpretation would require clinical information. Specimen (Source) Anatomical Collection Method Collection Time Re ceived Time Location / / Volume Laterality Blood 03/11/2015 10:45 AM ASSEMBLER FINAL Yolanda Colón APRN, C.N.P. LAB BLOOD ADD-ON Performing Organization Address City/State/ZIP Code Phon e Number POWERCHART documented in this encounter Visit Diagnoses Not on filedocumented in this encounter
--- OUTSIDE RECORDS SUMMARY | 2022-01-28 08:58 | XMS_ITS | Encounter Summary ---
:1945 Author Organization [facility] Address [address] [place] [address] Care Team Providers Name Role Phone Unavailable Primary Care Provider Unavailable Encounter Details Date Type Department Care Team Description 03/12/2015 Hospital Encounter HX [facility] Wendy Julian, CHIROPRACTIC CARE, C.N.P. 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 documented as of this encounter Last Filed Vital Signs Vital Sign Reading Time Taken Comments Blood Pressure - - Pulse - - Temperature - - Respiratory Rate - - Oxygen Saturation - - Inhaled Oxygen Concentration - - Weight - - Height 172 cm (5' 7.72) 03/12/2015 10:28 AM FIELD SEISMOLOGIST Body Mass Index - - documented in [...] Historical Provider Ser - 03/13/2015 9:08 AM FIELD SEISMOLOGIST Coding Summary-Paper Based CODING DATE: 03/13/2015 FINAL [facility] STATUS: * Discharged to Home or [...] MOON Date Saved: 03/13/2015 09:08 am Source: [facility] POWERCHART Document Id: [id number] Miscellaneous - Yolanda Colón APRN, C.N.P. - 03/13/2015 7:50 AM FIELD SEISMOLOGIST Results Notification Document Contains Addenda Addendum by MERVIN FERRELL LPN on 13 March 2015 09:13:13 FIELD SEISMOLOGIST Called patient and verbalized below. From: YOLANDA COLÓN CAR WRECKER To: MERVIN FERRELL LPN; Sent: 03/13/2015 07:50:15 FIELD SEISMOLOGIST Show up: 03/13/2015 07:50:00 FIELD SEISMOLOGIST Subject: Results Notification Actions: Notify patient of results No evidence of aortic anuerysm. Results: Date Result Type Result Name 03/12/2015 11:37 Radiology US Abdominal Aorta Source: [facility] POWERCHART Document Id: [id number] Electronically signed by Conversion, [facility] Wireline Operator [id number] at 08/22/2016 8:49 AM CDT documented in this encounter Plan of Treatment Upcoming Encounters Date Type Specialty Care Team Description 02/11/2022 Appointment Laboratory Medicine Neli Hearn M.D. [address] [place] [phone] (Wo rk) 02/14/2022 Office Visit Family Medicine Lilli Hearn M.D. [address] [place] [phone] (Wo rk) documented as of this encounter Procedures Procedure Name Priority Date/Time Associated Diagnosis Comme nts US AORTA Routine 03/12/2015 10:42 AM Results for this FIELD SEISMOLOGIST procedure are i n the results section . documented in this encounter Results US Aorta (03/12/2015 10:42 AM FIELD SEISMOLOGIST) Anatomical Region Laterality Modality Abdomen, Pelvis N/A Ultrasound Specimen (Source) Anatomical Collection Method Collection Time Re ceived Time Location / / Volume Laterality 03/12/2015 10:42 AM FIELD SEISMOLOGIST Narrative 03/12/2015 11:34 AM FIELD SEISMOLOGIST Exam: ?? US Abdominal Aorta Clinical history: [...]
--- OUTSIDE RECORDS SUMMARY | 2022-01-28 08:58 | XMS_ITS | Encounter Summary ---
:1945 Author Organization [facility] Address [address] [place] [address] Care Team Providers Name Role Phone Unavailable Primary Care Provider Unavailable Encounter Details Date Type Department Care Team Description 06/13/2013 Hospital Encounter HX [facility] Jd Hope M.D. [address] [place], [place] [phone] (Wo rk) Social History [...] at Date Recorded Male 04/20/2021 3:56 PM PLEXIGLAS FORMER documented as of this encounter Last [...] - 06/13/2013 9:23 CDT [facility] Document Id: [id number] CDT!10 Letty Solis R.N. - 06/13/2013 9:23 [...] LETTY SOLIS - 06/13/2013 9:23 CDT Source: [facility] POWERCHART Document Id: [id number] CDT!10 documented in this encounter Miscellaneous Notes [...] Heart Sounds ICU : S1S2 LETTY SOLIS - 06/13/2013 9:21 CDT Neurological Neuro Patient Stated Symptoms : None Orientation : Oriented x 3 Level of Consciousness : Alert Gait : Steady LETTY SOLIS - 06/13/2013 9:21 CDT Psycho/Emotional Pain Symptoms : No Affect/Behavior : Calm LETTY SOLIS 06/13/2013 9:21 CDT Gastrointestinal GI Patient Stated Symptoms : None LETTY SOLIS - 06/13/2013 9:21 CDT Genitourinary Patient Stated Symptoms [...] LETTY SOLIS - 06/13/2013 9:21 CDT Source: [facility] Document Id: [id number] CDT!47 Miscellaneous - Letty Solis R.N. - [...] Information Given By : Patient Languages : Kyrgyz LETTY SOLIS - 06/13/2013 8:48 CDT Nutrition [...] Psychosocial Adult Domestic Abuse Concerns : None Holiness Preference : No qualifying data available. LETTY [...] 8:48 CDT Source: [facility] POWERCHART Document Id: [id number] CDT!31 documented in this encounter Plan of Treatment Upcoming Encounters Date Type Specialty Care Team Description 02/11/2022 Appointment Laboratory Medicine Neli Hearn M.D. [address] [place] [phone] (Wo rk) 02/14/2022 Office Visit Family Medicine Lilli Hearn M.D. [address] [place] [address] (Stephon rk) documented as of this [...] : 1945. Gender: Male. PROCEDURE DATA Equipment: [employer] CT750 HD 64-slic e scanner with rotation [...] : 1945. Gender: Male. PROCEDURE DATA Equipment: [employer] CT750 HD 64-slic e scanner with rotation [...]
--- OUTSIDE RECORDS SUMMARY | 2022-01-28 08:58 | XMS_ITS | Encounter Summary ---
:1945 Author Organization [facility] Address [address] [place] [address] Care Team Providers Name Role Phone Unavailable Primary Care Provider Unavailable Encounter Details Date Type Department Care Team Description 05/27/2014 Hospital Encounter HX [facility] JENNIFERWendy Riojas, DUMPMAN, C.N.P. [address] [place] [phone] (Wo rk) Social History Tobacco Use Types [...] at Date Recorded Male 04/20/2021 3:56 PM UNIT MANAGER RN documented as of this encounter Last Filed Vital Signs Vital Sign Reading Time Taken Comments Blood Pressure 133/74 05/27/2014 11:09 AM UNIT MANAGER RN Pulse 70 05/27/2014 11:09 AM UNIT MANAGER RN Temperature - - Respiratory Rate 16 05/27/2014 11:09 AM UNIT MANAGER RN Oxygen Saturation - - Inhaled Oxygen Concentration - - Weight 130 kg (286 lb 9.6 oz) 05/27/2014 11:09 AM UNIT MANAGER RN Height 172 cm (5' 7.72) 05/27/2014 11:09 AM UNIT MANAGER RN Body Mass Index 43.94 05/27/2014 11:09 AM UNIT MANAGER RN documented in this encounter Medications at Time [...] APRN, C.N.P. - 05/27/2014 10:52 AM CST [id number] CHIEF COMPLAINT/REASON FOR VISIT Medhat comes in [...] not addressed today hyperlipidemia, hypertension, obesity. Linda BentleyN.PFamilia/pos Electronically Signed By: YOLANDA COLÓN GUN NUMBERER On: 05/28/2014 08:01 AM Source: [facility] MHSDOLBEYNONRADSYS Document Id: [id number] MANAGER RN documented in this encounter Miscellaneous Notes Miscellaneous - Yolanda Colón APRN C.N.P. - 05/27/2014 11:45 AM UNIT MANAGER RN Ambulatory Patient Summary [address] [id number] Visit Information Name: FRANSICO MACDONALD [facility] Number: [id number] Current Date: 05/27/2014 11:45:49 Physicians [...] nasal (fluticasone 50 mcg/inh nasal spray) 1 [place](s), Nasal, once a day glucosamine-chondroitin (Osteo Bi-Flex) [...] Electronically Signed By: YOLANDA COLÓN NP Signed On:27-MAY-2014 11:45:32 Your Allergies & Intolerances Substance Reaction Symptoms Category Comments Tylenol Drug Your Problem List Problem Status Onset Comments Hypertension Essential (401.9) Active Hypercholesterolemia Active Obesity NOS Active Your Upcoming Appointments Date Time Location Provider 06/03/2014 09:45 Yolanda Nunes NP 07/16/2014 09:15 Yolanda Nunes NP Attention: Contact your local Clinic if further appointment detail needed. Your Goals/Additional instructions: Source: [facility] POWERCHART Document Id: [id number] MANAGER RN Miscellaneous - Yolanda Colón APRN, C.N.P. - 05/27/2014 11:45 AM UNIT MANAGER RN Ambulatory Discharge Medication List [address] [id number] Visit Information Name: FRANSICO MACDONALD [facility] Number: [id number] Visit Date: 05/27/2014 11:45:48 Attending [...] nasal (fluticasone 50 mcg/inh nasal spray) 1 [place](s), Nasal, once a day glucosamine-chondroitin (Osteo Bi-Flex) [...] of emergency. Electronically Signed By: YOLANDA COLÓN GUN NUMBERER Signed On:27-MAY-2014 11:45:32 Additional Information: Source: [facility] POWERCHART Document Id: [id number] MANAGER RN Miscellaneous - Nelly Diaz L.P.N. - 05/27/2014 11:09 AM UNIT MANAGER RN Adult Stretch Box Tender Intake/History Adult Stretch Box Tender Intake/History Entered On: 05/27/2014 11:14 UNIT MANAGER RN Performed On: 05/27/2014 11:09 UNIT MANAGER RN by NELLY DIAZ LPN Intake Chief Complaint [...] kg/m2 NELLY DIAZ LPN - 05/27/2014 11:09 UNIT MANAGER RN General Info Information Given By : Patient Preferred Communication Mode : Verbal Languages : Mosotho Is Patient Female and 13-50 no hysterectomy : No NELLY DIAZ LPN - 05/27/2014 11:09 UNIT MANAGER RN Subjective Pain Symptoms : No NELLY DIAZ LPN - 05/27/2014 11:09 UNIT MANAGER RN Dependent Habits Tobacco Use/Currently Using : No Smoking Status : Former smoker NELLY DIAZ LPN - 05/27/2014 11:09 UNIT MANAGER RN Tobacco Use Grid Last Use : 40 YEARS AGO EMILY NELLY JAMES LCAC OPERATOR - 05/27/2014 11:09 UNIT MANAGER RN ID Screen Drug Resistant Organism : No Travel Within Last 21 Days : No Contact with someone with Ebola : No NELLY DIAZ LPN - 05/27/2014 11:09 UNIT MANAGER RN Source: [facility] POWERCHART Document Id: [id number] UNIT MANAGER RN!37 MANAGER RN documented in this encounter Plan of Treatment Upcoming Encounters Date Type Specialty Care Team Description 02/11/2022 Appointment Laboratory Medicine Neli Hearn M.D. [address] [place] [phone] (Wo rk) 02/14/2022 Office Visit Family Medicine Lilli Hearn M.D. [address] [place] [phone] (Wo rk) documented as of this encounter Visit Diagnoses Not on filedocumented in this encounter
--- OUTSIDE RECORDS SUMMARY | 2022-01-28 08:59 | XMS_ITS | Encounter Summary ---
:1945 Author Organization [facility] Address [address] [place] [address] Care Team Providers Name Role Phone Unavailable Primary Care Provider Unavailable Encounter Details Date Type Department Care Team Description 08/14/2012 Hospital Encounter [facility] Wendy Ríos, AMBER, C.N.P. 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 - 08/14/2012 3:39 PM CDT [id number] CHIEF COMPLAINT/REASON FOR VISIT 1. Medhat comes in today for continued pain on both of his feet. He was seen by Dr. Lilli Jarrell [id number] for another concern and did complain of [...] quite painful to walk. 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 Stop his Naprosyn for the current time while he is on this medication, and he may resume after it is complete. A consult was made to Dr. Marcellus Toledo, feed mill lab technician, for next , and he will follow up with him if his symptoms have not improved. Weight loss was recommended. We will call with his results when they return. Yolanda Colón, C.N.P./gregoria Electronically Signed By: YOLANDA COLÓN MAJOR LEAGUE BASEBALL UMPIRE On: 08/22/2012 09:11 AM Source: [facility] MHSDOLBEYNONRADSYS Document Id: [id number] documented in this encounter Miscellaneous Notes Miscellaneous - Conversion, Historical Provider Ser - 11/21/2012 4:54 PM CDT Bupropion Document Contains Addenda Addendum by ARLET TUBBS RN on 22 November 2012 11:45:44 CDT Done Addendum by LILLI JARRELL MD on 22 November 2012 10:38:00 CDT From: LILLI JARRELL MD To: [facility] Nurse Call Center Provider [facility]; Sent: 11/22/2012 10:38:00 CDT Subject: RE: Bupropion refill the BupropionSR 150 BID From: PAT HINDS RN ([facility] Nurse Call Center Provider [facility]) To: LILLI JARRELL MD; Sent: 11/21/2012 16:54:23 CDT Subject: Bupropion Received fax from pharmacy stating that Bupropion XL 150 mg 1 tab bid is not covered by patient's insurance. Pharmacy indicates that either Bupropion XL 300 mg 1 tab daily or Bupropion SR 150 mg 1 tab bid would be covered by insurance. Please advise. Source: [facility] Safello Document Id: [id number] Miscellaneous - Darby Shannon, L.P.N. - 08/16/2012 8:23 AM CDT podiatry appt. From: DARBY SHANNON LPN To: YOLANDA COLÓN MAJOR LEAGUE BASEBALL UMPIRE; Sent: 08/16/2012 08:23:53 CDT Subject: podiatry appt. Pt declines podiatry appt. Source: [facility] [employer] Document Id: [id number] Miscellaneous - Yolanda Colón APRN, C.N.P. - 08/15/2012 1:43 PM CDT General Message From: YOLANDA OCLÓN MAJOR LEAGUE BASEBALL UMPIRE To: LILLI JARRELL MD; Sent: 08/15/2012 13:43:11 CDT Subject: General Message I called with his cholesterol results. just wanted you to see them improving. Source: [employer] Document Id: [id number] Miscellaneous - Yolanda Colón APRN, C.N.P. - 08/15/2012 1:32 PM CDT Results Notification From: YOLANDA COLÓN MAJOR LEAGUE BASEBALL UMPIRE Sent: 08/15/2012 13:32:47 CDT Show up: 08/15/2012 [...] - 4.5) 08/14/2012 16:20 LDL/HDL 3 [facility] Document Id: [id number] Miscellaneous - Darby Shannon L.P.N. 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 Intake/History Entered On: 08/14/2012 15:50 CDT Performed On: 08/14/2012 15:47 CDT by DARBY SHANNON LPN Intake Chief Complaint : can't [...] oz) Dosing Weight Clinic : 150 kg DARBY SHANNON LPN - 08/14/2012 15:47 CDT General Info Languages : Welsh DARBY SHANNON LPN - 08/14/2012 15:47 CDT Subjective Pain Symptoms : Yes DARBY SHANNON LPN - 08/14/2012 15:47 CDT Pain Pain Assessment Grid Pain 1 Location : Other: feet DARBY SHANNON LPN - 08/14/2012 15:47 CDT Dependent Habits Tobacco Use/Currently Using : No Smoking Status : Former smoker Alcohol Use : Yes DARBY SHANNON LPN - 08/14/2012 15:47 CDT Source: [employer]box Document Id: [id number]!23 documented in this encounter Plan of Treatment Upcoming Encounters Date Type Specialty Care Team Description 02/11/2022 Appointment Laboratory Medicine Neli Jarrell M.D. [address] [place] [phone] (Wo rk) 02/14/2022 Office Visit Family Medicine Lilli Jarrell M.D. [address] [place] [phone] (Wo rk) documented as of this encounter [...] (ABNORMAL) Lipid Panel (08/14/2012 4:20 PM CDT) [facility] gist Method Time Signature Cholesterol, Total 188 [...] AST (Aspartate Aminotransferase) (08/14/2012 4:20 PM CDT) [facility] gist Method Time Signature Aspartate 22 3 [...]
--- OUTSIDE RECORDS SUMMARY | 2022-01-28 08:59 | XMS_ITS | Encounter Summary ---
:1945 Author Organization [facility] Address [address] [place] [address] Care Team Providers Name Role Phone Unavailable Primary Care Provider Unavailable Encounter Details Date Type Department Care Team Description 08/05/2012 Hospital Encounter HX [facility] Gianfranco Cameron M.D. 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 - 08/05/2012 10:11 AM CDT [id number] HISTORY OF PRESENT ILLNESS The patient is [...] soonershoulder questions or problems arise. Florencio Samuels M.D./[facility] Electronically Signed By: FLORENCIO SAMUELS MD On: 08/09/2012 02:36 PM Source: [facility] MHSDOLBEYNONRADSYS Document Id: [id number] documented in this encounter Miscellaneous Notes Miscellaneous - Florencio Samuels M.D. - 08/05/2012 10:38 AM CDT Ambulatory Patient Summary [facility] - [address] [address] Visit Information Name: FRANSICO MACDONALD [facility] Number: [id number] Current Date: 08/05/2012 10:38:49 Physicians [...] No Appointments found Your Goals/Additional instructions: Source: [facility] POWERCHART Document Id: [id number] Miscellaneous - Florencio Samuels M.D. - 08/05/2012 10:38 AM CDT Ambulatory Depart Summary [facility] - [address] [address] Visit Information Name: FRANSICO MACDONALD [facility] Number: [id number] Visit Date: 08/05/2012 10:38:48 Attending [...] your provider for clarification. Additional Information: Source: [facility] [employer] SnacksCHART Document Id: [id number] Miscellaneous - Conversion, Historical Provider Ser - 08/05/2012 10:23 AM CDT Adult Photographer'S Assistant Intake/History Adult Photographer'S Assistant Intake/History Entered On: 08/05/2012 10:24 CDT Performed [...] 08/05/2012 10:23 CDT General Info Languages : Cambodian CAMACHO HIGHTOWER - 08/05/2012 10:23 CDT Subjective Pain Symptoms : Yes CAMACHO HIGHOTWER - 08/05/2012 10:23 CDT Pain Pain Assessment Grid Pain 1 Location : Other: sinus CAMACHO HIGHTOWER - 08/05/2012 10:23 CDT Dependent Habits Tobacco Use/Currently Using : No Smoking Status : Former smoker CAMACHO HIGHTOWER - 08/05/2012 10:23 CDT Source: [facility] POWERCHART Document Id: [id number] CDT!17 documented in this encounter Plan of Treatment Upcoming Encounters Date Type Specialty Care Team Description 02/11/2022 Appointment Laboratory Medicine Neli Jarrell M.D. [address] [place] [phone] (Stephon rk) 02/14/2022 Office Visit Family Medicine Lilli Jarrell M.D. [address] [place] [phone] (Stephon rk) documented as of this encounter Visit Diagnoses Not on filedocumented in this encounter
--- OUTSIDE RECORDS SUMMARY | 2022-01-28 08:59 | XMS_ITS | Encounter Summary ---
:1945 Author Organization [facility] Address [address] [place] [address] Care Team Providers Name Role Phone Unavailable Primary Care Provider Unavailable Encounter Details Date Type Department Care Team Description 05/14/2013 Hospital Encounter [facility] Jono Springer M.D. 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 [address] [place] [phone] (Wo rk) 02/14/2022 Office Visit Family Medicine Lilli Hearn M.D. [address] [place] [phone] (Wo rk) documented as of this encounter Procedures Procedure Name Priority Date/Time Associated Comments Diagnosis CREATININE WITH Routine 05/14/2013 10:35 AM Resul ts for this EGFR, S/P THEATER SET PRODUCTION DESIGNER procedure are i n the results section. documented in this encounter Results Creatinine with eGFR (05/14/2013 10:35 AM THEATER SET PRODUCTION DESIGNER) P athologist Signature Creatinine 1.0 0.8 - 1.3 POWERCHART MGDL HXeGFR (MDRD) >60.0 >=60.0 POWERCHART eGFR >60.0 >=60.0 POWERCHART Black/ Specimen (Source) Anatomical Collection Method Collection Time Re ceived Time Location / / Volume Laterality Blood 05/14/2013 10:35 AM THEATER SET PRODUCTION DESIGNER Yordy Krueger M.D. LAB BLOOD ADD-ON Performing Organization Address City/State/ZIP Code Phon e Number POWERCHART documented in this encounter Visit Diagnoses Not on filedocumented in this encounter
--- OUTSIDE RECORDS SUMMARY | 2022-01-28 08:59 | XMS_ITS | Encounter Summary ---
:1945 Author Organization [facility] Address [address] [place] [address] Care Team Providers Name Role Phone Unavailable Primary Care Provider Unavailable Encounter Details Date Type Department Care Team Description 07/22/2010 Hospital Encounter [facility]X [facility] Anthony Galvin Jr., M.D. 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 Dumas on [place]. Will be faxing request for CPAP rx to [phone]. From: TEODORO KELSEY ([facility] Modeling Agent) To: Ears Nose Throat/Audiology Nurse; Sent: 02/12/2014 09:33:35 SUPERVISOR ADULT EDUCATION Subject: *Phone Message Caller is: ( x [...] A: R: He can be reached at [phone] Message: Advice/Action: Source used: ( ) Verbalizes [...] back cell phone number ( ) Source: [facility] POWERCHART Document Id: [id number] documented in this encounter Plan of Treatment Upcoming Encounters Date Type Specialty Care Team Description 02/11/2022 Appointment Laboratory Medicine Neli Hearn M.D. [address] [place] [phone] (Wo rk) 02/14/2022 Office Visit Family Medicine Lilli Hearn M.D. [address] [place] [phone] (Wo rk) documented as of this encounter Visit Diagnoses Not on filedocumented in this encounter
--- OUTSIDE RECORDS SUMMARY | 2022-01-28 08:59 | XMS_ITS | Encounter Summary ---
:1945 Author Organization [facility] Address [address] [place] [address] Care Team Providers Name Role Phone Unavailable Primary Care Provider Unavailable Encounter Details Date Type Department Care Team Description 06/07/2012 Hospital Encounter HX [facility] Neli Hope M.D. 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 - 06/07/2012 2:03 PM CDT [id number] HISTORY OF PRESENT ILLNESS Medhat is a 66-year-old gentleman here today for refill of his medications. He is doing well. He has been feeling well without complaints or concerns. He is still laid off from work but that has not really been overly stressful for him. He had a good winter. 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 SOCIAL HISTORY He is a nonsmoker. He does not drink alcohol. 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 SYSTEMS REVIEW Negative for chest pain, palpitation, shortness of breath, dyspnea on exertion, orthopnea, PND. He has still some nocturia. He takes Graphicly for urinary frequency and that works fairly [...] today is 0. Lilli Jarrell M.D./garth DOCID: [id number] Electronically Signed By: LILLI JARRELL MD On: 06/19/2012 01:54 PM Source: [facility] MHSDOLBEYNONRADSYS Document Id: [id number] documented in this encounter Miscellaneous Notes Miscellaneous - Conversion, Historical Provider Ser - 08/06/2012 1:30 PM CDT General Message Document Contains Addenda Addendum by MERVIN JAUREGUI RN on 06 Aug 2012 15:23:23 CDT patient notified that he needs to contact the insurance company. Addendum by MERVIN JAUREGUI RN on 06 Aug 2012 14:56:17 CDT From: MERVIN JAUREGUI RN ([facility] Nurse) To: LILLI JARRELL MD; Sent: [...] 14:30:58 CDT From: LILLI JARRELL MD To: [facility] Nurse; Sent: 08/06/2012 14:30:58 CDT Subject: RE: General Message PA needed. He has not tolerated any other medications. From: PAT HINDS RN ([facility] Nurse) To: LILLI JARRELL MD; Sent: 08/06/2012 13:30:16 CDT Subject: General Message Received prior auth request for patient's Bupropion HCL ER 150 mg. No previous prior auth was found in paper chart. Would you like us to initiate prior auth or would you prefer to change med? Please advise. Patient ([employer]). Phone number for PA: [phone] [facility]: [facility] Document Id: [id number] Miscellaneous - Lilli Jarrell M.D. - 06/07/2012 4:21 PM CDT Ambulatory Patient Summary [place] [place] [address] Visit Information Name: FRANSICO MACDONALD [facility] Number: [id number] Current Date: 06/07/2012 16:21:30 [...] No Appointments found Your Goals/Additional instructions: Source: [facility] POWERCHART Document Id: [id number] Miscellaneous - Lilli Jarrell M.D. - 06/07/2012 4:21 PM CDT Ambulatory Depart Summary [place] [id number] Visit Information Name: FRANSICO MACDONALD [facility] Number: [id number] Visit Date: 06/07/2012 16:21:29 [...] for clarification. Additional Information: Source: [facility] POWERCHART Document Id: [id number] Miscellaneous - Katy Shannon L.P.NFamilia - 06/07/2012 [...] SHANNON LPN - 06/07/2012 15:23 CDT Source: [email or web address] Document Id: [id number] Miscellaneous - Katy Shannon L.P.N. - 06/07/2012 2:20 PM CDT Ambulatory Vitals Height Weight Ambulatory Vitals Height Weight Entered On: 06/07/2012 14:20 CDT Performed On: 06/07/2012 14:20 CDT by KATY SHANNON LPN Vitals/Ht/Wt Systolic Blood Pressure : 144mmHg (HI) Diastolic Blood Pressure : 96mmHg (>HHI) NIBP Mean : 112mmHg KATY SHANNON LPN - 06/07/2012 14:20 CDT Source: [employer] Document Id: [id number] Kavyacellaneous - Katy Shannon L.P.N. 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 [address] [facility] [place] [phone] (Stephon caldera) 02/14/2022 Office Visit Family Medicine Lilli Jarrell M.D. [address] [facility] [place] [phone] (Stephon caldera) documented as of this encounter [...] - 17.5 POWERCHART GDL Comment: Lot # [id number] Exp 01/12/2014 Specimen (Source) Anatomical Collection Method Collection Time Re ceived Time Location / / Volume Laterality Blood 06/07/2012 3:15 PM CDT Lilli Jarrell M.D. LAB BLOOD ADD-ON Performing Organization Address City/State/ZIP Code Phon e Number POWERCHART (ABNORMAL) Lipid Panel (06/07/2012 3:15 PM CDT) [facility] gist Method Time Signature Cholesterol, Total [...] (Basic Metabolic Panel) (06/07/2012 3:15 PM CDT) athologist Signature Sodium, S 139 135 - [...]
--- OUTSIDE RECORDS SUMMARY | 2022-01-28 08:59 | XMS_ITS | Encounter Summary ---
:1945 Author Organization [facility] Address [address] [place] [address] Care Team Providers Name Role Phone Unavailable Primary Care Provider Unavailable Encounter Details Date Type Department Care Team Description 02/28/2013 Hospital Encounter [facility]X [facility] Wendy Ríos, ESCALATOR ATTENDANT, C.N.P. 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 documented as of this encounter Last Filed Vital Signs Vital Sign Reading Time Taken Comments Blood Pressure 136/94 02/28/2013 9:12 AM SCHOOL MANAGER Pulse 87 02/28/2013 9:00 AM SCHOOL MANAGER Temperature - - Respiratory Rate - - Oxygen Saturation - - Inhaled Oxygen Concentration - - Weight 149 kg (329 lb 2.4 oz) 02/28/2013 9:00 AM SCHOOL MANAGER Height 172 cm (5' 7.72) 02/28/2013 9:00 AM SCHOOL MANAGER Body Mass Index 50.47 02/28/2013 9:00 AM SCHOOL MANAGER documented in this encounter Medications at Time of Discharge Medication Sig Dispensed Refills Start Date End Date aspirin [address] tablet Take 81 mg by mouth. 0 aspirin 81 mg capsule Take 1 tablet by 0 07/16/19 11 01/09/2018 mouth daily. documented as of this encounter H&P Notes Yolanda Colón APRN, C.N.P. 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 No regular alcohol use. No regular [...] Linda BentleyNIsadora/carmenza Electronically Signed By: YOLANDA COLÓN HVAC INSTRUCTOR On: 03/04/2013 02:11 PM Source: [facility] MHSDOLBEYNONRADSYS Document Id: [id number] OL MANAGER documented in this encounter Miscellaneous Notes Miscellaneous - Ana Cristina Mayer - 06/24/2013 10:47 AM CDT YOLANDA COLÓN Document Contains Addenda Addendum by MERVIN JAUREGUI RN on 24 June 2013 11:11:59 CDT From: MERVIN JAUREGUI RN ([facility] Nurse) To: YOLANDA COLÓN HVAC INSTRUCTOR; Sent: 06/24/2013 11:11:59 CDT Subject: FW: YOLANDA COLÓN Patient looking for Heart Scan results. From: ANA CRISTINA MAYER To: [facility] Nurse; Cc: [facility]; Sent: 06/24/2013 10:47:20 CDT [...] today? Fransico had a heart scan in [place] in the and he is calling for the results. I did tell him that she is not in the [facility] today. ?? If Medication Refill: o What is the medication? o What pharmacy do you use? o Have you contacted your pharmacy regarding this request? I will send this information to the appropriate staff member who will look into your concern. If thenurse needs to talk to you he or she will call you back within two hours. Thank you for calling [facility]. Source: [facility] POWERCHART Document Id: [id number] Miscellaneous - Yolanda Colón APRN, C.N.P. - 03/04/2013 11:41 AM SCHOOL MANAGER Custom Result Letter 04 March 2013 FRANSICO MACDONALD [address] [facility] [id number] Dear FRANSICO MACDONALD, I am sending you [...] with you. Please call with any questions [phone]. Have a Merry Kevin and Happy New [...] 32 02/28/2013 29 08/14/2012 6 - 50 [id number] Total (mg/dL) 0.6 02/28/2013 0.1 - 1.2 [...] Absolute (x10(9)/L) 2.24 02/28/2013 0.90 - 2.90 [place] Absolute (x10(9)/L) 0.66 02/28/2013 0.30 - 0.90 [...] Clear 02/28/2013 Clear - Sincerely, YOLANDA COLÓN [address] [place] [id number] Electronic Signature Electronically Signed By: YOLANDA COLÓN NP On: 04 March 2013 This document has images extracted. Source: [facility] POWERCHART Document Id: [id number] Miscellaneous - Yolanda Colón APRN, C.N.P. - 03/04/2013 11:37 AM SCHOOL MANAGER Ambulatory Patient Summary [address] [address] Visit Information Name: FRANSICO MACDONALD [facility] Number: [id number] Current Date: 03/04/2013 11:37:34 Physicians Attending Provider: YOLANDA COLÓN HVAC INSTRUCTOR Primary Care Provider: YOLANDA COLÓN HVAC INSTRUCTOR FRANSICO MACDONALD has been given the following [...] Time Location Reason Provider 04/01/2013 09:00 MAQN Agronomy Manager obesity, dietary education Crystal Danielson 04/09/2013 09:00 MAQN Nuc Med CHEST PAIN - ADENOSINE 2 DAY, WEIGHT 329, SCHEDULED WITH PADMA[facility] MAQN NM RM 1 04/11/2013 09:00 MAQN Nuc Med CHEST PAIN, ADENOSINE RESTING IMAGES ONLY, WEIGHT 329, SCHEDULED WITH [facility] MAQN NM RM 1 Attention: Contact your local Clinic if further appointment detail needed. Your Goals/Additional instructions: Source: [facility] POWERCHART Document Id: [id number] OL MANAGER Miscellaneous - Yolanda Colón APRN, C.N.P. - 03/04/2013 11:37 AM SCHOOL MANAGER Ambulatory Depart Summary [address] [address] Visit Information Name: FRANSICO MACDONALD [facility] Number: [id number] Visit Date: 03/04/2013 11:37:33 Attending Provider: YOLANDA COLÓN HVAC INSTRUCTOR Primary Care Provider: YOLANDA COLÓN HVAC INSTRUCTOR FRANSICO MACDONALD has been given the following [...] in case of emergency. Additional Information: Source: Local [employer]ART Document Id: [id number] OL MANAGER Miscellaneous - Conversion, Historical Provider Ser - 03/01/2013 9:27 AM SCHOOL MANAGER REFERRAL TO DERMATOLOGY - [place], [place] From: EVELYN MOLINA ([facility]) Cc: AKOSUA MONTENEGRO; Sent: 03/01/2013 09:27:09 SCHOOL MANAGER Subject: REFERRAL TO DERMATOLOGY - [place], [place] Template of screen: Location of appointment: [place], [place] Provider scheduled with:Dr. Kellie Cm Date and time of appt:04/04/13 145 pm Reason for appt:psoriasis How patient was notified: (x ) in person ( )via phone ( ) left message ( ) sent letter Additional comments: Records to be faxed to:[phone] [facility] Document Id: [id number] Miscellaneous - Katy Shannon LFamiliaP.N. - 02/28/2013 9:12 AM CST Ambulatory Vitals Height Weight Ambulatory Vitals Height Weight Entered On: 02/28/2013 9:13 SCHOOL MANAGER Performed On: 02/28/2013 9:12 SCHOOL MANAGER by KATY SHANNON LPN Vitals/Ht/Wt Systolic Blood Pressure : 136 mmHg Diastolic Blood Pressure : 94 mmHg (>HHI) NIBP Mean : 108 mmHg KATY SHANNON LPN - 02/28/2013 9:12 SCHOOL MANAGER Source: [facility] POWERCHART Document Id: [id number] SCHOOL MANAGER!5 OL MANAGER Candido - Katy Shannon L.P.NFamilia - 02/28/2013 9:07 AM CST Health Assessment Health Assessment Entered On: 02/28/2013 9:08 SCHOOL MANAGER Performed On: 02/28/2013 9:07 SCHOOL MANAGER by KATY SHANNON LPN Health Assessment Complete Health Assessment Complete or Modified : Annual Health Assessment Annual Health Assessment Completed : Yes KATY SHANNON LPN - 02/28/2013 9:07 SCHOOL MANAGER Nutrition Nutrition Risk Factors by History Adult : Active eating disorder KATY SHANNON LPN - 02/28/2013 9:07 SCHOOL MANAGER Functional Current Daily Living Assistance : None KATY SHANNON LPN - 02/28/2013 9:07 SCHOOL MANAGER Dependent Habits Tobacco Use/Currently Using : No Smoking Status : Never smoker KATY SHANNON LPN - 02/28/2013 9:07 SCHOOL MANAGER Tobacco Use Grid Last Use : 40 YEARS AGO KATY SHANNON LPN - 02/28/2013 9:07 SCHOOL MANAGER Alcohol Use : Yes KATY SHANNON LPN - 02/28/2013 9:07 SCHOOL MANAGER AUDIT Tool How Often Do You Have A Drink : Monthly or less How Many Drinks in a Day When Drinking : 1 or 2 Six or More Drinks On One Occassion : Never Audit Phase 1 Score : 1 KATY SHANNON LPN - 02/28/2013 9:07 SCHOOL MANAGER Psychosocial Domestic Abuse Concerns : None KATY SHANNON LPN - 02/28/2013 9:07 SCHOOL MANAGER Advance Directive Advanced Directives : No KATY SHANNON LPN - 02/28/2013 9:07 SCHOOL MANAGER Educ Needs Learning Style Preference Adult Grid Patient : None Family : None KATY SHANNON LPN - 02/28/2013 9:07 SCHOOL MANAGER Source: [facility] POWERCHART Document Id: [id number] SCHOOL MANAGER!28 OL MANAGER Miscellaneous - Katy Shannon L.P.NFamilia - 02/28/2013 9:00 AM CST Adult Chip Washer Intake/History Document Has Been Updated Adult Chip Washer Intake/History Entered On: 02/28/2013 9:06 SCHOOL MANAGER Performed On: 02/28/2013 9:00 SCHOOL MANAGER by KATY SHANNON LPN Intake 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 AND FLU SHOT KATY SHANNON LPN - 02/28/2013 9:08 SCHOOL MANAGER Peripheral Pulse Rate : 87 /min Systolic [...] Body Mass Index : 50.47 kg/m2 KATY SHANNON LPN - 02/28/2013 9:00 SCHOOL MANAGER General Info Information Given By : Patient Languages : Malay KATY SHANNON LPN - 02/28/2013 9:00 SCHOOL MANAGER Subjective Pain Symptoms : Yes KATY SHANNON LPN - 02/28/2013 9:00 SCHOOL MANAGER Pain Pain Assessment Grid Pain 1 Location : Other: RIGHT UPPER PA IN KATY SHANNON LPN - 02/28/2013 9:00 SCHOOL MANAGER Dependent Habits Tobacco Use/Currently Using : No Smoking Status : Former smoker KATY SHANNON LPN - 02/28/2013 9:00 SCHOOL MANAGER Tobacco Use Grid Last Use : 40 YEARS AGO Comments (Comment: CHEWING TOBACCO [KATY SHANNON YARD PERSON - 02/28/2013 9:00 SCHOOL MANAGER] ) KATY SHANNON YARD PERSON - 02/28/2013 9:00 SCHOOL MANAGER Alcohol Use : Yes KATY SHANNON [facility] - 02/28/2013 9:00 SCHOOL MANAGER Source: [facility] POWERCHART Document Id: [id number] SCHOOL MANAGER!3 OL MANAGER documented in this encounter Plan of Treatment Upcoming Encounters Date Type Specialty Care Team Description 02/11/2022 Appointment Laboratory Medicine Neli Hearn M.D. [address] [place] [phone] (Wo rk) 02/14/2022 Office Visit Family Medicine Lilli Hearn M.D. [address] [place] [phone] (Wo rk) documented as of this encounter Procedures Procedure Name Priority Date/Time Associated Comments Diagnosis LIPID PANEL, S Routine 02/28/2013 10:20 Results f or this AM SCHOOL MANAGER procedure are i n the results section. PROSTATE-SPECIFIC AG Routine 02/28/2013 10:20 Res ults for this (PSA) SCRN, S AM SCHOOL MANAGER procedure are in the results section. AUTOMATED Routine 02/28/2013 10:20 Results for this DIFFERENTIAL, B AM SCHOOL MANAGER procedure ar e in the results section. CBC WITH DIFFERENTIAL, Routine 02/28/2013 10:20 R esults for this B AM SCHOOL MANAGER procedure are i n the results section. COMPREHENSIVE Routine 02/28/2013 10:20 Results fo r this METABOLIC PANEL, S/P AM SCHOOL MANAGER procedu re are in the results section. DIPSTICK, U Routine 02/28/2013 9:17 AM Results f or this SCHOOL MANAGER procedure are i n the results section. documented in this encounter Results Automated Differential (02/28/2013 10:20 AM SCHOOL MANAGER) P athologist Signature Absolute 3.62 1.70 - POWERCHART Neutrophils 7.00 109L Lymphocytes 2.24 0.90 - POWERCHART 2.90 X109L Monocytes 0.66 0.30 - POWERCHART 0.90 X109L Eosinophils <0.50 0.05 - POWERCHART 0.50 X109L Absolute <0.50 0.00 - POWERCHART Basophil 0.30 X109L Specimen Anatomical Collection Method Collection Time Receive d Time (Source) Location / / Volume Laterality Blood 02/28/2013 10:20 02/28/2013 AM SCHOOL MANAGER 10:20 AM SCHOOL MANAGER Yolanda Colón APRN, C.N.P. LAB BLOOD ADD-ON Performing Organization Address City/State/ZIP Code Phon e Number POWERCHART CBC with Differential (02/28/2013 10:20 AM SCHOOL MANAGER) P athologist Signature Leukocytes 6.6 3.5 - 10.5 POWERCHART X109L Erythrocytes 5.08 4.32 - POWERCHART 5.72 [id number] Hemoglobin 14.9 13.5 - POWERCHART 17.5 GDL Hematocrit 44.2 38.8 - POWERCHART 50.0 MCV 87.0 81.2 - POWERCHART 95.1 FL HX RDW 12.7 11.8 - POWERCHART 15.6 Platelet Count 251 150 - 450 POWERCHART X109L HXDifferential? Auto POWERCHART Specimen (Source) Anatomical Collection Method Collection Time Re ceived Time Location / / Volume Laterality Blood 02/28/2013 10:20 AM SCHOOL MANAGER Yolanda Colón APRN, C.N.P. LAB BLOOD ADD-ON Performing Organization Address City/State/ZIP Code Phon e Number POWERCHART PSA (Prostate-Specific Antigen) Screen (02/28/2013 10:20 AM SCHOOL MANAGER) P athologist Signature Prostate-Specif 1.2 <=4.5 NGML POWERCHART ic Ag Specimen (Source) Anatomical Collection Method Collection Time Re ceived Time Location / / Volume Laterality Blood 02/28/2013 10:20 AM SCHOOL MANAGER Yolanda Colón APRN, C.N.P. LAB BLOOD ADD-ON Performing Organization Address City/State/ZIP Code Phon e Number POWERCHART (ABNORMAL) Lipid Panel (02/28/2013 10:20 AM SCHOOL MANAGER) [facility] [employer] Release [employer] Distribution Fund Method Time Signature Cholesterol, Total 219 (H) [...] / Volume Laterality Blood 02/28/2013 10:20 AM SCHOOL MANAGER Yolanda Colón APRN, C.N.P. LAB BLOOD ADD-ON Performing Organization Address City/State/ZIP Code Phon e Number POWERCHART CMP (Comprehensive Metabolic Panel) (02/28/2013 10:20 AM SCHOOL MANAGER) [facility] [employer] Limited Release [employer] Distribution Fund Method Time Signature Alanine 32 6 - [...] >=60.0 POWERCHART eGFR Black/ >60.0 >=60.0 POWERCHART [place] Bilirubin, Total, S 0.6 0.1 - 1.2 POWERCHART MGDL Total Protein, S 7.1 6.2 - 7.5 POWERCHART GDL Glucose 135 70 - 139 POWERCHART MGDL Specimen (Source) Anatomical Collection Method Collection Time Re ceived Time Location / / Volume Laterality Blood 02/28/2013 10:20 AM SCHOOL MANAGER Yolanda Colón APRN, C.N.P. LAB BLOOD ADD-ON Performing Organization Address City/State/[facility] Code Phon e Number POWERCHART Dipstick, Urine (02/28/2013 9:17 AM SCHOOL MANAGER) [facility] gist Method Time Signature Source Clean Void POWERCHART Urine HXUr Color Yellow Yellow POWERCHART Appearance Clear Clear POWERCHART Glucose Negative Negative POWERCHART HXBILIRUBIN Negative Negative POWERCHART Ketones, QL(U) Negative Negative POWERCHART Specific 1.020 1.000 - POWERCHART [place], POCT, U 1.030 HXBLOOD Negative Negative POWERCHART pH, POCT, Urine 7.0 5.0 - 9.0 POWERCHART Protein, Ur, Dip Negative Negative POWERCHART Urobilinogen 0.2 0.1 - 2.0 POWERCHART HXNITRITE Negative Negative POWERCHART Leukocyte Negative Negative POWERCHART Esterase Specimen (Source) Anatomical Collection Method Collection Time Re ceived Time Location / / Volume Laterality Urine 02/28/2013 9:17 AM SCHOOL MANAGER Yolanda Colón APRN, C.N.P. LAB URINE ORDERABLES Performing Organization Address City/State/[facility] Phon e Number POWERCHART documented in this encounter Visit Diagnoses Not on filedocumented in this encounter
--- OUTSIDE RECORDS SUMMARY | 2022-01-28 08:59 | XMS_ITS | Encounter Summary ---
:1945 Author Organization [facility] Address [address] [place] [address] Care Team Providers Name Role Phone Unavailable Primary Care Provider Unavailable Encounter Details Date Type Department Care Team Description 04/04/2013 Hospital Encounter HX [facility] MAHairN INVENTORY COORDINATOR Wendy Colón, WELDING MACHINE OPERATOR THERMIT, C.N.P. 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 Anthropometric data: Height: 172 cm BMI: 50.4 kg/m2 (based on 149.3 kg kg) Current weight: 149 kg Date of current weight: 04/05/2013 ELW: 69.2 kg Estimated needs: 0004-3710 calories/day ([place] basal plus 20%) Estimated needs using a [...] CRYSTAL BENNETT On: 04/05/2013 10:22 AM Source: [facility] POWERCHART Document Id: [id number] ING ENGINEER documented in this encounter Plan of Treatment Upcoming Encounters Date Type Specialty Care Team Description 02/11/2022 Appointment Laboratory Medicine Neli Hearn M.D. [address] [place] [phone] (Stephon caldera) 02/14/2022 Office Visit Family Medicine Lilli Hearn M.D. [address] [place] [facility] [phone] (Stephon caldera) documented as of this encounter Visit Diagnoses Not on filedocumented in this encounter
--- OUTSIDE RECORDS SUMMARY | 2022-01-28 08:59 | XMS_ITS | Encounter Summary ---
:1945 Author Organization [facility] Address [address] [place] [address] Care Team Providers Name Role Phone Unavailable Primary Care Provider Unavailable Encounter Details Date Type Department Care Team Description 07/15/2010 Hospital Encounter HX [facility] OWOC Anthony Galvin Jr., M.D. [address] [place], [place] [phone] (Wo rk) Social History [...] 1 to 4 times per year 11/2019 jew services? 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 [address] [place] [phone] (Stephon caldera) 02/14/2022 Office Visit Family Medicine Lilli Hearn M.D. [address] [place] [phone] (Stephon caldera) documented as of this encounter Visit Diagnoses Not on filedocumented in this encounter
--- OUTSIDE RECORDS SUMMARY | 2022-01-28 08:59 | XMS_ITS | Encounter Summary ---
:1945 Author Organization [facility] Address [address] [place] [address] Care Team Providers Name Role Phone Unavailable Primary Care Provider Unavailable Encounter Details Date Type Department Care Team Description 04/09/2013 Hospital Encounter HX [facility] MAQN Heather Jimenez, DISTRICT COURT ADMINISTRATOR, C.N.P. 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 [address] [place] [phone] (Wo rk) 02/14/2022 Office Visit Family Medicine Lilli Hearn M.D. [address] [place] [phone] (Wo rk) documented as of this encounter Visit Diagnoses Not on filedocumented in this encounter
--- OUTSIDE RECORDS SUMMARY | 2022-01-28 08:59 | XMS_ITS | Encounter Summary ---
:1945 Author Organization [facility] Address [address] [place] [address] Care Team Providers Name Role Phone Unavailable Primary Care Provider Unavailable Encounter Details Date Type Department Care Team Description 04/16/2013 Hospital Encounter HX [facility] MAQN Heather Jimenez, OPTICAL SYSTEMS ENGINEER, C.N.P. [address] [place] [phone] (Wo rk) Social History Tobacco Use Types [...] 1 to 4 times per year 11/2019 mandaeism services? 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 0 aspirin 81 mg capsule Take 1 tablet by 0 07/16/19 11 01/09/2018 mouth daily. documented as of this encounter Progress Notes Yolanda Colón APRN, C.N.P. - 06/26/2013 12:00 AM CDT [id number] Patient was notified of his recent cardiology [...] in doing anything prior to that. I oncemaryin discussed a low-fat low-cholesterol diet, regular exercise, [...] Linda BentleyNFamiliaP./pos Electronically Signed By: YOLANDA COLÓN SOCIAL MEDIA COMMUNITY MANAGER On: 06/27/2013 10:28 AM Source: [facility] MHSDOLBEYNONRADSYS Document Id: [id number] documented in this encounter Plan of Treatment Upcoming Encounters Date Type Specialty Care Team Description 02/11/2022 Appointment Laboratory Medicine Neli Hearn M.D. [address] [place] [phone] (Wo rk) 02/14/2022 Office Visit Family Medicine Lilli Hearn M.D. [address] [place] [phone] (Wo rk) documented as of this encounter Procedures Procedure Name Priority Date/Time Associated Diagnosis Comme nts NM CARDIAC Routine 04/09/2013 11:34 AM Results for this PERFUSION REST AND FIELD SUPPORT ENGINEER procedure are in STRESS SPECT the results section. documented in this encounter Results NM Cardiac Perfusion Rest and Stress SPECT (04/09/2013 11:34 AM FIELD SUPPORT ENGINEER) Specimen (Source) Anatomical Collection Method Collection Time Re ceived Time Location / / Volume Laterality 04/09/2013 11:34 AM FIELD SUPPORT ENGINEER Impressions [facility] RADIOLOGY SYSTEM - 06/13/2013 11:21 AM CDT See Powerchart and or PACS. [facility] SYSTEM - 06/13/2013 11:21 AM CDT Originally Signed By Contributor_system, [facility]_SYWendy The report for this exam is available in PACS with the images. To view the images and report for this e xam, click on the image indicator icon from the report window in Goomb[employer]. Procedure Note ProviderUzma M.D. - 08/05/2016F ormatting of this note might be different from the original. Originally Signed By Contributor_system, [facility]_DEE_SYWendy The report for this exam is available in PACS with the images. To view the images and report for this e xam, click on the image indicator icon from the report window in Go[employer]al. IMPRESSION: See Powerchart and or PACS. Milton Thacker(Sadie)(CT) IMG NM PROCEDURES Performing Organization Address City/State/ZIP Code Phon e Number [facility] RADIOLOGY SYSTEM [address] [place] [address], [place] documented in this encounter Visit Diagnoses Not on filedocumented in this encounter
--- NOTE | 2022-01-28 09:00 | CRLHL7_ITS ---
For Patients: As a result of the Century Cures Act, medical imaging exams and procedure reports are released immediately into your electronic medical record. You may view this report before your referring provider. If you have questions, please contact your health care provider. Indication: SOB and intermittent cough Technique: Noncontrast CT chest Please note that all CT scans at this facility use dose modulation, iterative reconstruction, and/or weight-based dosing when appropriate to reduce radiation dose to as low as reasonably achievable. Comparison: Chest x-ray 08/15/2021 Findings: No mediastinal, hilar or axillary adenopathy. Normal thyroid. Vascular calcifications. Coronary artery calcifications. Calcified lymph node at the lower mediastinum. Additional smaller calcified lymph nodes also located inferiorly. Calcified splenic granulomas and calcified cluster of nodules within the right lower lobe. Small stones in the gallbladder. No pleural or pericardial effusion. Calcified subcarinal lymph nodes. Normal axillary lymph nodes. Bilateral gynecomastia. Degenerative joint disease at the right shoulder. Degenerative disc disease thoracic spine. No fracture. Mild scarring bilaterally. 6.3 millimeter left lower lobe pulmonary nodule, 3/73. Additional left lower lobe nodule measuring 6.1 millimeters, 3/72. 6 millimeter nodule right lower lobe, 3/60. Other smaller nodules are present elsewhere. No infiltrate. No edema or pneumothorax. Impression: Bilateral pulmonary nodules measuring up to 6.3 millimeters. Follow-up CT chest in 6 months recommended. 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 Mild scarring in both lung bases. COPD. Bilateral gynecomastia. Please note that all CT scans at this facility use dose modulation, iterative reconstruction, and/or weight-based dosing when appropriate to reduce radiation dose to as low as reasonably achievable. Dictated by Mumtaz Machado MD @ 01/28/2022 1:14:54 PM (Electronically Signed)
== END 2022-01-28 08:48 | disposition home or self-care (01) ==
PROVIDERS: PCP Family Medicine; Visit Provider Family Medicine
DX: R05.9 Cough, unspecified (principal); R06.02 Shortness of breath; R91.8 Other nonspecific abnormal finding of lung field; J44.9 Chronic obstructive pulmonary disease, unspecified
CPT/HCPCS: 71250